=== PATIENT | female | born 1960 | race Two or more races ===

== ENCOUNTER 2020-07-22 13:41 | Outpatient (REF) | payer OTHER, SELFPAY ==
--- NOTE | 2020-07-22 | US_ITS ---
EXAMINATION: US VENOUS ULTRASOUND WITH DOPPLER LOWER EXTREMITY, BILATERAL CLINICAL INFORMATION: Bilateral lower extremity edema. Assess for occult DVT COMPARISON: Right lower extremity venous ultrasound with Doppler 09/21/2016 TECHNIQUE: Ultrasound of the bilateral lower extremity deep veins is performed from the hip to the calf with compression sonography and color and pulse Doppler assessment. Spectral analysis with color-flow imaging is performed. FINDINGS: Right: There is normal venous compression and respiratory variation and augmented flow. The visualized common femoral vein, superficial femoral vein, profunda femoral vein, popliteal vein, and the trifurcation region shows no evidence of deep venous thrombosis. There is no popliteal fossa cyst. Left: There is normal venous compression and respiratory variation and augmented flow. The visualized common femoral vein, superficial femoral vein, profunda femoral vein, popliteal vein, and the trifurcation region shows no evidence of deep venous thrombosis. There is no popliteal fossa cyst. IMPRESSION: No DVT demonstrated in the bilateral lower extremity.
== END 2020-07-22 13:42 | disposition home or self-care (01) ==
LOC: HO.US 13:41
PROVIDERS: Visit Provider Emergency Medicine
DX: R60.0 Localized edema (principal)
CPT/HCPCS: 93970

== ENCOUNTER → 2020-08-06 07:56 | Outpatient (REF) | payer OTHER, SELFPAY ==
--- NOTE | 2020-08-06 | NM_ITS ---
EXAMINATION: RADIONUCLIDE SOLID FOOD GASTRIC EMPTYING 4-HOUR STUDY CLINICAL INFORMATION: Early satiety, nausea. COMPARISON: No previous gastric emptying study is available for comparison. TECHNIQUE: A standard meal consisting of 4 oz of Egg Beaters brand tagged with 1 mCi Tc-99m Sulfur Colloid, 8 oz water and 2 slices of toast with jelly was administered orally to the patient. Images were obtained using a dual head gamma camera in the anterior and posterior projections over of the stomach immediately post ingestion and at hourly intervals up to 3 hours post ingestion. Images were not obtained at 4 hours due to the minimal retention at 3 hours. The anterior and posterior counts at each time interval were averaged using the geometric mean and expressed as percentage of the immediate post ingestion counts. FINDINGS: There is good visualization of activity in the stomach immediately post ingestion. As the study progresses, there is good clearance of activity from the stomach and visualization of progressively increasing small bowel activity. By the end of the study, there is almost no retention noted in the stomach. Retention in the stomach at each time interval was: 1 hour 63% (normal 37%-90%) 2 hours 8% (normal 30%-60%) 3 hours 4% 4 hours (Not Obtained) (normal 0%-10%) NM/NM gastric emptying study IMPRESSION: Normal solid food gastric emptying study.
== END ==
LOC: HO.NUCMED 07:56
PROVIDERS: PCP Nurse Practitioner Family; Visit Provider Internal Medicine Gastroenterology
DX: R68.81 Early satiety (principal)
CPT/HCPCS: 78264; A9541

== ENCOUNTER → 2020-09-07 13:24 | Outpatient (BNVA) | payer OTHER, SELFPAY | PROVIDERS: Visit Provider Internal Medicine Pulmonary Disease | DX: J44.9 Chronic obstructive pulmonary disease, unspecified (principal); R91.8 Other nonspecific abnormal finding of lung field; Z87.891 Personal history of nicotine dependence | CPT/HCPCS: 99212 ==

== ENCOUNTER 2020-09-17 10:32 | Outpatient (REF) | payer OTHER, SELFPAY ==
--- NOTE | 2020-09-17 13:17 | XR_ITS ---
EXAMINATION: XR CERVICAL SPINE CLINICAL INFORMATION: Cervicalgia COMPARISON: 11/22/2015 TECHNIQUE: 3 views of the cervical spine were obtained. FINDINGS: The craniocervical junction is normal. The dens and atlantodental articulation are intact. The cervical vertebra have normal height. No fracture, subluxation or prevertebral soft tissue swelling. The facet joints are chronically fused at C2-C3. Prominent anterior vertebral osteophytes are noted at multiple levels. There is uncovertebral joint hypertrophy and mild degenerative narrowing of disc space at C5-C6. There is facet arthropathy and degenerative disc space narrowing at C7-T1. Otherwise, disc heights are maintained. The visualized lung apices are normal. XR/XR cervical spine 2V IMPRESSION: Chronic, multilevel degenerative arthropathy of the cervical spine. Mild degenerative disc space narrowing observed at C5-C6. The degenerative changes have a stable appearance compared to 11/22/2015. No fracture or malalignment.
== END 2020-09-17 10:33 | disposition home or self-care (01) ==
LOC: HO.XRAY 10:32
PROVIDERS: PCP Nurse Practitioner Family; Visit Provider Student in an Organized Health Care Education/Training Program
DX: M54.2 Cervicalgia (principal); M19.041 Primary osteoarthritis, right hand; M19.042 Primary osteoarthritis, left hand; Z79.899 Other long term (current) drug therapy
CPT/HCPCS: 72040; Q3014

== ENCOUNTER → 2020-09-27 13:27 | Outpatient (BNVA) | payer OTHER, SELFPAY | PROVIDERS: PCP Nurse Practitioner Family; Visit Provider Urology | DX: N39.41 Urge incontinence (principal); N39.3 Stress incontinence (female) (male); N39.490 Overflow incontinence | CPT/HCPCS: 51798; 81002; 99202 ==

== ENCOUNTER 2020-10-04 10:52 | Outpatient (REF) | payer OTHER, SELFPAY ==
--- NOTE | 2020-10-04 10:55 | CT_ITS ---
EXAMINATION: CT CHEST WITHOUT CONTRAST CLINICAL INFORMATION: Abnormal lung findings. COMPARISON: Chest x-ray 11/07/2019 TECHNIQUE: Multidetector volumetric CT imaging of the chest was done. Axial MIP volume rendering provided. Sagittal and coronal reformatted images were obtained. This CT examination was performed using dose optimization techniques as appropriate, variously including the following: *Automated exposure control *Adjustment of mA and/or kV according to patient size (this includes techniques or standardized protocols for targeted exams where dose is matched to indication/reason for exam; i.e. extremities or head) *Use of iterative reconstruction technique DLP: 190 mGy-cm FINDINGS: CERTIFIED PEER SPECIALIST: Unremarkable. LUNGS: The lungs are well expanded and clear of acute pneumonic consolidation. There is plate-like atelectasis in the right middle lobe and medial basal segment right lower lobe. There are several pulmonary nodules visualized. There is a 4 mm and 6 mm nodule adjacent to the left lower lobe superior segment image 31/4 and 3 mm nodule left lung base image 47/4. MEDIASTINUM: The thyroid lobes are symmetrical and normal. The central trachea and the bronchi are widely patent. The heart size and great vessels are normal caliber. Trace coronary artery calcifications are seen. There is no pericardial effusion. PLEURA: There is no pleural effusion. No pleural mass or thickening. AXILLA: Small shotty lymph nodes are seen in the axilla. UPPER ABDOMEN: The visualized liver, spleen, pancreas, and bilateral adrenal glands are unremarkable. There are no gallstones or wall thickening. There is a punctate calcification right and left hepatic lobe. OSSEOUS STRUCTURES: There is no lytic or sclerotic process. There is mild spondylosis dorsal spine. There are posterior spinal electrodes positioned posterior to T7 through T9 vertebrae. There is moderate spondylosis mid and lower dorsal spine. CT/CT chest wo con IMPRESSION: Small pulmonary nodules, as described above. Follow-up as per Fleischner guidelines in 6 months followed by 18-24 months. No acute pneumonic consolidation. Minimal atelectatic changes.
== END 2020-10-04 10:53 | disposition home or self-care (01) ==
LOC: HO.CT 10:52
PROVIDERS: PCP Nurse Practitioner Primary Care; Visit Provider Internal Medicine Pulmonary Disease
DX: R91.8 Other nonspecific abnormal finding of lung field (principal)
CPT/HCPCS: 71250

== ENCOUNTER → 2020-10-11 09:51 | Outpatient (BNVA) | payer OTHER, SELFPAY | PROVIDERS: PCP Internal Medicine Geriatric Medicine; Visit Provider Orthopaedic Surgery | DX: Z76.89 Persons encountering health services in other specified circumstances (principal) ==

== ENCOUNTER 2020-10-11 10:39 | Outpatient (REF) | payer OTHER, SELFPAY ==
[2020-10-11 14:47] LABS: Estimated Average Glucose 137 mg/dL; Hemoglobin A1c % 6.4 %
== END 2020-10-11 10:40 | disposition home or self-care (01) ==
LOC: HO.10HDL 10:39
PROVIDERS: Visit Provider Orthopaedic Surgery
DX: Z01.812 Encounter for preprocedural laboratory examination (principal)
CPT/HCPCS: 36415; 83036

== ENCOUNTER 2020-10-25 11:49 | Outpatient (REF) | payer OTHER, SELFPAY | END 2020-10-25 11:50 | disposition home or self-care (01) | LOC: HO.LAB 11:49 | PROVIDERS: Visit Provider Internal Medicine | DX: Z20.822 Contact with and (suspected) exposure to COVID-19 (principal) | CPT/HCPCS: 36415; C9803; U0003 ==

== ENCOUNTER 2020-11-08 11:55 | Outpatient (REF) | payer OTHER, SELFPAY | END 2020-11-08 11:56 | disposition home or self-care (01) | LOC: HO.LAB 11:55 | PROVIDERS: Visit Provider Internal Medicine | DX: Z20.822 Contact with and (suspected) exposure to COVID-19 (principal) | CPT/HCPCS: 36415; C9803; Q3014; U0003; U0005 ==

== ENCOUNTER → 2020-11-19 11:01 | Outpatient (BNVA) | payer OTHER, SELFPAY | PROVIDERS: PCP Internal Medicine Geriatric Medicine; Visit Provider Nurse Practitioner Family | DX: M19.041 Primary osteoarthritis, right hand (principal); M19.042 Primary osteoarthritis, left hand | CPT/HCPCS: 99212 ==

== ENCOUNTER 2020-11-22 10:47 | Outpatient (REF) | payer OTHER, SELFPAY ==
--- NOTE | ~2020-11-22 | XR_ITS ---
EXAMINATION: XR HAND, LEFT CLINICAL INFORMATION: Osteoarthritis COMPARISON: None TECHNIQUE: PA, lateral, and oblique views of the left hand. FINDINGS: Bone alignment is normal. No acute fracture or dislocation is seen. There is a well-corticated soft tissue ossification adjacent to the ulnar styloid probably representing an old ulnar styloid fracture. There is arthritis at the IP joints, greatest at the IP joints with joint space narrowing and osteophyte formation. Soft tissues are unremarkable. XR/XR hand LT min 3V IMPRESSION: Probable old ulnar styloid fracture. Arthritis at the IP joints.
== END 2020-11-22 10:48 | disposition home or self-care (01) ==
LOC: HO.XRAY 10:47
PROVIDERS: PCP Internal Medicine Geriatric Medicine; Visit Provider Nurse Practitioner Family
DX: M19.042 Primary osteoarthritis, left hand (principal); M19.041 Primary osteoarthritis, right hand
CPT/HCPCS: 73130

== ENCOUNTER → 2020-11-24 14:56 | Outpatient (BNVA) | payer OTHER, SELFPAY | PROVIDERS: PCP Internal Medicine Geriatric Medicine; Visit Provider Nurse Practitioner Family | DX: M19.041 Primary osteoarthritis, right hand (principal); M19.042 Primary osteoarthritis, left hand | CPT/HCPCS: Q3014 ==

== ENCOUNTER → 2020-12-06 09:50 | Outpatient (BNVA) | payer OTHER, SELFPAY | PROVIDERS: Visit Provider Orthopaedic Surgery | DX: M65.352 Trigger finger, left little finger (principal); M19.041 Primary osteoarthritis, right hand; M19.042 Primary osteoarthritis, left hand; R20.0 Anesthesia of skin; R20.2 Paresthesia of skin | CPT/HCPCS: 99202 ==

== ENCOUNTER → 2020-12-15 13:00 | Outpatient (BNVA) | payer OTHER, SELFPAY | PROVIDERS: PCP Nurse Practitioner Primary Care; Visit Provider Physician Assistant | DX: M17.11 Unilateral primary osteoarthritis, right knee (principal) | CPT/HCPCS: 99212 ==

== ENCOUNTER 2020-12-21 06:07 | Inpatient (IN) | payer OTHER, SELFPAY ==
[2020-12-13 12:01] VITALS: BP 134/69; PULSE 60; RESP 16; O2SAT 98; BMI 31.4
--- NOTE | 2020-12-13 12:49 | HO.ANESPROP2 ---
Documented by User: Yolande Montemayor 12/20/20 08:34 HPI - Anesthesia Eval Consult details Narrative: 60yo F for R TKA PCP cleared. Per PCP note, cardiac cleared by telephone call between providers. Seen in cardiology office 11/2020 - stable. Recently had spinal stimulator placed. Low dose suboxone daily. Pt takes 1/3 of 2 mg tab daily. Per pt, prescriber ok with holding suboxone preoperatively. s/p R unicompartmental arthroplasty 07/2016 with spinal PMFSH Active Problems Active Problems: All Active Problems (Updated 12/13/20 @ 12:43 by Corie Lugo) Asthma-COPD overlap syndrome (Acute) Pulmonary nodules (Acute) Neck pain (Acute) Epigastric pain (Acute) Duodenal diverticulum (Acute) Abdominal bloating (Acute) Colon cancer screening (Acute) Early satiety (Acute) Osteoarthritis of hands, bilateral (Acute) Trigger finger, left little finger (Acute) Osteoarthritis of fingers of both hands (Acute) Numbness and tingling in both hands (Acute) Overflow stress urinary incontinence in female (Acute) Urge incontinence (Acute) Primary osteoarthritis of hands, bilateral (Acute) GERD (gastroesophageal reflux disease) (Acute) Past Medical History Medical History Asthma-COPD overlap syndrome Diabetes MENDENHALL (dyspnea on exertion) GERD (gastroesophageal reflux disease) Hx of carpal tunnel syndrome Loose right total knee arthroplasty Overflow stress urinary incontinence in female Presence of dental bridge Primary osteoarthritis of hands, bilateral Pulmonary nodules Sleep apnea Urge incontinence Family History Family History Mother Diabetes Brother Cancer Family history of problems with anesthesia: No Surgical History Surgical History History of arthroplasty of right knee History of carpal tunnel release of both wrists History of endometrial ablation History of esophagogastroduodenoscopy (EGD) History of orthopedic surgery History of pubovaginal sling Hx of section Hx of colonoscopy Previous back surgery History of Problems with Anesthesia: No Social History Social History Household Members: None Are you a primary anesthesiologist and critical care to a significant other at home: No Do you presently have visiting nurse or other home services: Yes ([employer]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) Alcohol intake: former Year quit: 2017 Smoking Status: Former smoker Tobacco Type: Cigarette Years Smoked: 2017 Smoking Quit Date: 2018 Use of substances other than those prescribed or required for medical reasons: No Substance Use Type: Crack/Cocaine and Marijuana Substance Use Type Other:: none since 2018 Have you been hit, kicked, punched, or otherwise hurt by someone within the past year? If so, by whom?: No Spiritual Healthcare Practices: none [facility] Practices: none Cultural Healthcare Practices: none Advance Directives: No Advance Directives Information Provided: No Advance Directives on File: No Recently lost weight without trying: No Narrative Narrative: No recent illness. Activity limited to pain. Chronic MENDENHALL at baseline. Meds Allergies Allergy/AdvReac Type Severity Reaction Status Date / Time ibuprofen [IBUPROFEN] Allergy Mild STOMACH Verified 12/15/20 13:11 PAIN Home Medications Medication Instructions Recorded Confirmed Last Taken Type acetaminophen 500 mg tablet 1,000 mg PO Q6H PRN 09/07/20 12/13/20 Unknown History albuterol sulfate 90 mcg/actuation 2 puff PO Q4H PRN 09/07/20 12/13/20 Unknown History aerosol inhaler atenolol 50 mg tablet 50 mg PO BEDTIME 09/07/20 12/13/20 12/21/20 History blood sugar diagnostic #10 ea 09/07/20 11/08/20 Unknown History buprenorphine 2 mg-naloxone 0.5 mg 1 mg SUBLINGUAL DAILY 09/07/20 12/13/20 Unknown History sublingual film cetirizine 10 mg tablet 10 mg PO DAILY 09/07/20 12/13/20 Unknown History cholecalciferol (vitamin D3) 50 50 mcg PO DAILY 09/07/20 12/13/20 Unknown History mcg (2,000 unit) tablet duloxetine 60 mg capsule,delayed 60 mg PO BID 09/07/20 12/13/20 Unknown History release econazole 1 % topical cream 1 appl TOPICAL BEDTIME 09/07/20 11/19/20 Unknown History ferrous gluconate 240 mg (27 mg 240 mg PO Q OTHER DAY 09/07/20 12/13/20 Unknown History iron) tablet fluticasone propionate 50 1 spray INTRANASAL BID 09/07/20 12/13/20 Unknown History mcg/actuation nasal spray,suspension gabapentin 800 mg tablet 800 mg PO TID 09/07/20 12/13/20 Unknown History lancets 33 gauge #100 ea 09/07/20 11/08/20 Unknown History losartan 100 mg tablet 100 mg PO DAILY 09/07/20 12/13/20 Unknown History meloxicam 15 mg tablet 15 mg PO DAILY 09/07/20 12/13/20 Unknown History metformin 500 mg tablet 500 mg PO DAILY 09/07/20 12/13/20 Unknown History simvastatin 20 mg tablet 20 mg PO BEDTIME 09/07/20 12/13/20 Unknown History trazodone 50 mg tablet 50 mg PO BEDTIME 09/07/20 12/13/20 Unknown History zolpidem 10 mg tablet 10 mg PO BEDTIME PRN 09/07/20 12/13/20 Unknown History amlodipine 5 mg tablet 5 mg PO DAILY 09/27/20 12/13/20 12/21/20 History fluticasone propion-salmeterol 2 puff PO BID 12/21/20 12/21/20 Unknown History [Advair HFA] Exam Exam Date and Time: December 13, 2020 1249 Height,Weight and Vital Signs: Height 5 ft 2 in Weight 78.018 kg Last Vital Signs Pulse 60 12/13/20 12:01 Resp 16 12/13/20 12:01 BP 134/69 12/13/20 12:01 Pulse Ox 98 12/13/20 12:01 Narrative Narrative: EKG 12/01/20 NSR@63 Echo 12/2019 Nml LV sys and diastolic function Mild AR Nml RV pressure No pericardial effusion Echo 10/2020 Nml LV function EF 65-70% Indeterminate diastolic function Stress 2018 (per pcp note) WNL Airway Mallampati Class: I TM Dist: >3cm Neck ROM: Full Partial: Upper Heart: RRR Lungs: Faint expiratory wheezes throughtout. Pt states she has not been home to use inhaler today. Assessment and Plan Assessment Anesthesia Assessment: Anesthesia Plan Discussed (Spinal vs General Anesthesia (spinal stimulator in situ)) and PAT Visit Final Anesthetic Review Patient Risk: Intermediate Documented by User: Paolo Villa MD 12/21/20 09:03 [facility] Past Medical History Medical History Asthma-COPD overlap syndrome Diabetes MENDENHALL (dyspnea on exertion) GERD (gastroesophageal reflux disease) Hx of carpal tunnel syndrome Loose right total knee arthroplasty Overflow stress urinary incontinence in female Presence of dental bridge Primary osteoarthritis of hands, bilateral Pulmonary nodules Sleep apnea Urge incontinence Family History Family History Mother Diabetes Brother Cancer Surgical History Surgical History History of arthroplasty of right knee History of carpal tunnel release of both wrists History of endometrial ablation History of esophagogastroduodenoscopy (EGD) History of orthopedic surgery History of pubovaginal sling Hx of section Hx of colonoscopy Previous back surgery Social History Social History Household Members: None Are you a primary anesthesiologist and critical care to a significant other at home: No Do you presently have visiting nurse or other home services: Yes ([employer]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) Alcohol intake: former Year quit: 2017 Smoking Status: Former smoker Tobacco Type: Cigarette Years Smoked: 2018 Smoking Quit Date: 2018 Use of substances other than those prescribed or required for medical reasons: No Substance Use Type: Crack/Cocaine and Marijuana Substance Use Type Other:: none since 2019 Have you been hit, kicked, punched, or otherwise hurt by someone within the past year? If so, by whom?: No Spiritual Healthcare Practices: none [facility] Practices: none Cultural Healthcare Practices: none Advance Directives: No Advance Directives Information Provided: No Advance Directives on File: No Recently lost weight without trying: No Meds Allergies Allergy/AdvReac Type Severity Reaction Status Date / Time ibuprofen [IBUPROFEN] Allergy Mild STOMACH Verified 12/15/20 13:11 PAIN Home Medications Medication Instructions Recorded Confirmed Last Taken Type acetaminophen 500 mg tablet 1,000 mg PO Q6H PRN 09/07/20 12/13/20 Unknown History albuterol sulfate 90 mcg/actuation 2 puff PO Q4H PRN 09/07/20 12/13/20 Unknown History aerosol inhaler atenolol 50 mg tablet 50 mg PO BEDTIME 09/07/20 12/13/20 12/21/20 History blood sugar diagnostic #10 ea 09/07/20 11/08/20 Unknown History buprenorphine 2 mg-naloxone 0.5 mg 1 mg SUBLINGUAL DAILY 09/07/20 12/13/20 Unknown History sublingual film cetirizine 10 mg tablet 10 mg PO DAILY 09/07/20 12/13/20 Unknown History cholecalciferol (vitamin D3) 50 50 mcg PO DAILY 09/07/20 12/13/20 Unknown History mcg (2,000 unit) tablet duloxetine 60 mg capsule,delayed 60 mg PO BID 09/07/20 12/13/20 Unknown History release econazole 1 % topical cream 1 appl TOPICAL BEDTIME 09/07/20 11/19/20 Unknown History ferrous gluconate 240 mg (27 mg 240 mg PO Q OTHER DAY 09/07/20 12/13/20 Unknown History iron) tablet fluticasone propionate 50 1 spray INTRANASAL BID 09/07/20 12/13/20 Unknown History mcg/actuation nasal spray,suspension gabapentin 800 mg tablet 800 mg PO TID 09/07/20 12/13/20 Unknown History lancets 33 gauge #100 ea 09/07/20 11/08/20 Unknown History losartan 100 mg tablet 100 mg PO DAILY 09/07/20 12/13/20 Unknown History meloxicam 15 mg tablet 15 mg PO DAILY 09/07/20 12/13/20 Unknown History metformin 500 mg tablet 500 mg PO DAILY 09/07/20 12/13/20 Unknown History simvastatin 20 mg tablet 20 mg PO BEDTIME 09/07/20 12/13/20 Unknown History trazodone 50 mg tablet 50 mg PO BEDTIME 09/07/20 12/13/20 Unknown History zolpidem 10 mg tablet 10 mg PO BEDTIME PRN 09/07/20 12/13/20 Unknown History amlodipine 5 mg tablet 5 mg PO DAILY 09/27/20 12/13/20 12/21/20 History fluticasone propion-salmeterol 2 puff PO BID 12/21/20 12/21/20 Unknown History [Advair HFA] Exam Airway Mallampati Class: III TM Dist: >3cm Neck ROM: Full Loose/Missing/Broken Teeth: Yes Heart: RRR Lungs: NL Assessment and Plan Assessment Anesthesia Assessment: Anesthesia Plan Discussed, Smoking Cess. Discussed and Chart Reviewed Final Anesthetic Review NPO: Yes ASA Class: III Final Preanesthetic Review: No Changes in Pt Med Stat, Meds/Allgs Chart Reviewed, Consent Obtained/Reviewed and Anes Risks/Benef Reviewed Patient Risk: Intermediate Procedure Risk: Intermediate Anesthetic Plan Anesthetic Plan: MAC:, Spinal and Regional Block Disposition: Standard PACU
[2020-12-13 14:14] LABS: MANUAL DIFF FLAG NO
[2020-12-13 14:19] LABS: Basophils Percent Auto 0.3 % (0-2); Eosinophils Absolute Auto 0.3 X10*3/uL (0.0-0.4); Eosinophils Percent Auto 3.7 % (0-4); Hematocrit 34.7 % (37-47); Hemoglobin 11.4 g/dl (12.0-16.0); Imm Gran Abs Auto 0.03 X10*3/uL (0.00-0.03); Imm Gran Pct Auto 0.3 % (0.0-0.4); Lymphocytes Absolute Auto 2.8 X10*3/uL (1.2-4.9); Lymphocytes Percent Auto 32.1 % (20-40); Mean Corpuscular HGB Conc 32.9 g/dl (31.0-35.0); Mean Corpuscular Hemoglobin 30.2 pg (27.0-33.0); Mean Platelet Volume 10.6 fL (9.4-12.3); Monocytes Absolute Auto 0.7 X10*3/uL (0.1-1.2); Monocytes Percent Auto 8.2 % (2-11); Neutrophils Absolute Auto 4.9 X10*3/uL (2.0-8.3); Neutrophils Percent Auto 55.4 % (45-73); Platelet Count 307 X10*3/uL (160-400); Red Blood Count 3.77 X10*6/uL (4.20-5.50); White Blood Count 8.9 X10*3/uL (4.8-10.8)
[2020-12-13 14:54] LABS: Anion Gap 12 (12-20); Blood Urea Nitrogen 10 mg/dL (9-16); Carbon Dioxide 31 mmol/L (22-29); Chloride 102 mmol/L (96-108); Creatinine Clr Calc Pharmacy 89.3; Estimated Glomerular Filt Rate > 60; Potassium 4.3 mmol/L (3.3-5.1); Sodium 141 mmol/L (135-145)
[2020-12-13 15:11] LABS: MRSA Nasal PCR NEGATIVE (Negative); SA Nasal PCR NEGATIVE (Negative)
[2020-12-21] VITALS (21 sets, daily range): BP systolic 95–151; BP diastolic 45–73; PULSE 51–74; RESP 8–20; TEMP 36.2–37.5; O2SAT 96–100
--- NOTE | ~2020-12-21 | XR_ITS ---
EXAMINATION: XR KNEE, RIGHT CLINICAL INFORMATION: Status post right total knee arthroplasty. COMPARISON: Standing AP knees 04/19/2018, radiographs right knee 05/24/2020 TECHNIQUE: AP and crosstable lateral views of the right knee are obtained portably. FINDINGS: There is total knee arthroplasty with hinged prosthesis and overlying skin tye. There is expected subcutaneous emphysema, effusion, and mild induration Hoffa's fat pad. There is no fracture or dislocation. Spurring at the quadriceps insertion patella again seen. XR/XR knee RT 2V IMPRESSION: Status post right knee arthroplasty. No fracture or dislocation.
[2020-12-21] MEDS: Gabapentin 600 MG TABLET PO (06:48)
[2020-12-21 06:55] LABS: Glucose, Whole Blood 130 mg/dL (60-115)
[2020-12-21 07:11] LABS: COVID-19 Test Negative (Negative); IDNOW Serial# 9DD0AD1C
[2020-12-21] MEDS: Lactated Ringers 1,000 ML 100 ML IVCONT (07:12)
--- NOTE | 2020-12-21 07:37 | MHC.SHP ---
Pre-Procedural Eval Section A The patient is an INPATIENT: No Changes since office visit: No Cold of Flu in the past 2 weeks, No New Medical Problems, No Changes in Medication and No Patient answered all questions The History & Physical has been completed within 30 days and I have reviewed it.: Yes Section B Chief Complaint: R TKA REVISION Allergies: Allergies Allergy/AdvReac Type Severity Reaction Status Date / Time ibuprofen [IBUPROFEN] Allergy Mild STOMACH Verified 12/15/20 13:11 PAIN Plan I have reviewed the history and physical and performed a pertinent physical examination on my patient. No changes have occurred unless specified.
--- NOTE | 2020-12-21 10:33 | P.BOP_ITS ---
Brief Operative Note Date of Service: 12/21/20 Pre-op diagnosis: right knee arthritis Post-op diagnosis: same Procedure: revision right knee arthroplasty Implants: keira triathalon 11/10/TS/33s Surgeon: Lyndon Covington MD Anesthesia: regional and spinal Engraver Picture: Maxim Duenas Estimated blood loss (mL): 150 IV fluids (mL): 1,000 Pathology: none sent Condition: stable Disposition: PACU
--- NOTE | 2020-12-21 10:34 | W.PM.OPN ---
Operative Note Operative Note Date of Service: 12/21/20 Narrative: Date of Service: 12/21/20 Pre-op diagnosis: right knee arthritis Post-op diagnosis: same Procedure: revision right knee arthroplasty Implants: keira triathalon //13TS/33s Surgeon: Lyndon Covington MD Anesthesia: regional and spinal Body Shop Supervisor: Maxim Duenas Estimated blood loss (mL): 150 IV fluids (mL): 1,000 Pathology: none sent Condition: stable Disposition: PACU Indications: This is a 60 yo F 6 years s/p right medial compartment arthroplasty with lateral and anterior knee pain. She was consented to undergo revision TKA. Procedure in detail: Patient was brought to the operating room and prepped and draped in standard sterile fashion. A time-out was called to identify proper site proper procedure proper surgeon IV antibiotics were administered. 1 g of IV tranexemic acid was also administered. I began by making a extended incision to encompass the prior medial arthrotomy incision down to the retinaculum and then performed a medial parapatellar arthrotomy. The patella was translated laterally and the knee was flexed up. I performed a small medial peel and resected the infrapatellar fat pad. The medial UKA implants were is expected position and there was no evidence of loosening or infection. The insert was removed and then the femur and tibia were removed with a flexible osteotom. There was minimal bone loss in the femoral side and 2-3 mm on the tibial side. All excess cement was removed and Mando's line was then used to drill my intramedullary femoral guide and my distal femur cut was made in 5 degrees of valgus. I then used the epicondylar axis to place my cutting block and then made my anterior posterior and chamfer cuts protecting the soft tissues at all times. There was no need for augmentation. Once I was happy with my cut I turned my attention to the tibia. In line with the tibial crest and with a 3 degree posterior slope I made my tibial cut protecting by taking a skim cut off the low point of the medial plateau while the posterior soft tissues at all times. An extension block was used to confirm appropriate amount of bony resection. The knee was stable and fully extended with a 13 mm extension blcok. I then sized the tibia and once I was happy that there was good tibial coverage I placed my trial and with the trial femur in place took the knee through range of motion. I was happy with the extension and flexion as well as the stability at 0, 30 and 90 degrees. I then turned my attention to the patella where I removed 1 cm from the undersurface of the patella and then trialed a patellar button of appropriate dimensions. Again the knee was taken through range of motion I was happy with the tracking. I then prepared the tibial canal. Femoral bone plug was then placed and the knee was irrigated copiously. I then cemented in the patella, tibia and femur in standard fashion while applying axial compression. Once the cement was dry I removed all excess cement and I trialed different inserts until I found the appropriate size. I then placed the final insert and performed a 3 minutes iodine soak with local TXA. A layered closure was performed with tye on the skin and a Proveena vacuum assisted dressing was applied. The knee was then closed with a running Quill suture, a 3 0 Vicryl and tye on the skin. Patient was then placed in sterile dressing and brought to recovery room in stable condition there were no known complications.
[2020-12-21] MEDS: HYDROmorphone HCl 0.5 MG/0.5 ML SYRINGE IVPUSH ×4 (11:42→13:29)
[2020-12-21] MEDS: ceFAZolin Sodium/Dextrose,Iso 2 GM/50 ML PIGGYBACK IV (16:22)
[2020-12-21] MEDS: oxyCODONE HCl Immed Release 5 MG TABLET 10 MG PO ×2 (16:22→23:30)
[2020-12-21] MEDS: Dextrose 5 % and 0.9 % NaCl 1,000 ML 80 ML IVCONT (17:32)
[2020-12-21] MEDS: oxyCODONE HCl ER 10 MG TAB.ER.12H PO (19:35)
--- NOTE | 2020-12-21 19:55 | P.CONIM_ITS ---
History of Present Illness Data of Consult Service Date: 12/21/20 Primary Care Provider: Gildardo Yin MD [facility] Reason for consult: Medical management 60-year-old female past asthma, prediabetes, osteoarthritis, presented to the hospital with a chief complaint of knee pain; admitted to the orthopedic service and status post knee arthroplasty. Medicine team was consulted by the orthopedics team for medical management. Patient denied any chest pain palpitations lightheadedness or dizziness. Complains of pain in the knee. Denies any fever chills cough. Review of all other systems is negative except mentioned above PMFSH Medical History Asthma-COPD overlap syndrome Diabetes [place] (dyspnea on exertion) GERD (gastroesophageal reflux disease) Hx of carpal tunnel syndrome Loose right total knee arthroplasty Overflow stress urinary incontinence in female Presence of dental bridge Primary osteoarthritis of hands, bilateral Pulmonary nodules Sleep apnea Urge incontinence Family History Mother Diabetes Brother Cancer Surgical History History of arthroplasty of right knee History of carpal tunnel release of both wrists History of endometrial ablation History of esophagogastroduodenoscopy (EGD) History of orthopedic surgery History of pubovaginal sling Hx of section Hx of colonoscopy Previous back surgery Social History Household Members: None Are you a primary care management coordinator to a significant other at home: No Do you presently have visiting nurse or other home services: Yes ([employer]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) Alcohol intake: former Year quit: 2017 Smoking Status: Former smoker Tobacco Type: Cigarette Years Smoked: 2018 Smoking Quit Date: 2018 Use of substances other than those prescribed or required for medical reasons: No Substance Use Type: Crack/Cocaine and Marijuana Substance Use Type Other:: none since 2019 Have you been hit, kicked, punched, or otherwise hurt by someone within the past year? If so, by whom?: No Spiritual Healthcare Practices: none Sikhism Healthcare Practices: none Cultural Healthcare Practices: none Advance Directives: No Advance Directives Information Provided: No Advance Directives on File: No Recently lost weight without trying: No Meds Allergies Allergy/AdvReac Type Severity Reaction Status Date / Time ibuprofen [IBUPROFEN] Allergy Mild STOMACH Verified 12/15/20 13:11 PAIN Active Medications: Current Medications Generic Name Dose Route Start Last Admin Trade Name Freq PRN Reason Stop Dose Admin Acetaminophen 650 mg 12/21/20 15:50 Acetaminophen 325 Mg Tablet PO Q6H PRN Pain, Mild (Pain Scale 1-3) Albuterol/Ipratropium 3 ml 12/21/20 19:12 Albuterol/Iprat 2.5/0.5mg 3 Ml Ampul.Neb INHALE Q4H PRN Shortness of Breath/Wheezing Amlodipine Besylate 5 mg 12/22/20 09:00 Amlodipine Besylate 5 Mg Tablet PO DAILY [facility] Protocol Atenolol 50 mg 12/21/20 21:00 Atenolol 50 Mg Tablet PO BEDTIME [facility] Protocol Buprenorphine/Naloxone 0.5 film 12/22/20 09:00 Buprenorphine/Naloxone 2/0.5mg Film SUBLINGUAL DAILY [facility] Celecoxib 200 mg 12/21/20 21:00 Celecoxib 200 Mg Capsule PO BID [facility] Docusate Sodium 100 mg 12/21/20 21:00 Docusate Sodium 100 Mg Capsule PO BID [facility] Duloxetine HCl 60 mg 12/21/20 21:00 Duloxetine Hcl 60 Mg Capsule.Dr PO BID [facility] Fluticasone Propionate 1 spray 12/21/20 21:00 Fluticasone Propionate Nasal 16 Gm [place] NOSTRIL-B BID [facility] Gabapentin 800 mg 12/21/20 21:00 Gabapentin 400 Mg Capsule PO TID [facility] Hydromorphone HCl 0.5 mg 12/21/20 15:50 Hydromorphone Hcl 0.5 Mg/0.5 Ml Syringe IVPUSH Q3H PRN Pain, Severe (Pain Scale 7-10) Dextrose/Sodium Chloride 1,000 mls @ 80 mls/hr 12/21/20 15:50 12/21/20 17:32 D5ns IVCONT 80 mls/hr .[id number] [facility] Administration Loratadine 10 mg 12/22/20 09:00 Loratadine 10 Mg Tablet PO DAILY [facility] Losartan Potassium 100 mg 12/22/20 09:00 Losartan Potassium 50 Mg Tablet PO DAILY [facility] Protocol Naloxone HCl 0.2 mg 12/21/20 15:50 Naloxone Hcl 0.4 Mg/Ml Vial IVPUSH Q2M PRN Excessive sedation or RR < 8 Omeprazole 40 mg 12/22/20 06:30 Omeprazole 40 Mg Capsule. PO BID@0638,9620 [facility] Ondansetron HCl 4 mg 12/21/20 15:50 Ondansetron Hcl 4 Mg/2 Ml Vial IVPUSH Q8H PRN Nausea and Vomiting Oxycodone HCl 10 mg 12/21/20 15:50 12/21/20 16:22 Oxycodone Hcl Immed Release 5 Mg Tablet PO 10 mg Q4H PRN Administration Pain, Moderate (Pain Scale 4-6 Oxycodone HCl 10 mg 12/21/20 21:00 12/21/20 19:35 Oxycodone Hcl Er 10 Mg Tab.Er.12h PO 10 mg BID [facility] Administration Sodium Chloride 3 ml 12/21/20 16:00 12/21/20 17:00 0.9 % Sodium Chloride Flush 3 Ml Syringe IVFLUSH Not Given QSHIFT [facility] Trazodone HCl 50 mg 12/21/20 21:00 Trazodone Hcl 50 Mg Tablet PO BEDTIME [facility] Vitamin D 50 mcg 12/22/20 09:00 Cholecalciferol (Vitamin D3) 25 Mcg Tablet PO DAILY [facility] Zolpidem Tartrate 10 mg 12/21/20 19:11 Zolpidem Tartrate 5 Mg Tablet PO BEDTIME PRN Insomnia Home Medications Medication Instructions Recorded Confirmed Last Taken Type acetaminophen 500 mg tablet 1,000 mg PO Q6H PRN 09/07/20 12/13/20 Unknown History albuterol sulfate 90 mcg/actuation 2 puff PO Q4H PRN 09/07/20 12/13/20 Unknown History aerosol inhaler atenolol 50 mg tablet 50 mg PO BEDTIME 09/07/20 12/13/20 12/21/20 History blood sugar diagnostic #10 ea 09/07/20 11/08/20 Unknown History buprenorphine 2 mg-naloxone 0.5 mg 0.5 film SUBLINGUAL DAILY 09/07/20 12/21/20 Unknown History sublingual film cetirizine 10 mg tablet 10 mg PO DAILY 09/07/20 12/13/20 Unknown History cholecalciferol (vitamin D3) 50 50 mcg PO DAILY 09/07/20 12/13/20 Unknown History mcg (2,000 unit) tablet duloxetine 60 mg capsule,delayed 60 mg PO BID 09/07/20 12/13/20 Unknown History release econazole 1 % topical cream 1 appl TOPICAL BEDTIME 09/07/20 11/19/20 Unknown History ferrous gluconate 240 mg (27 mg 240 mg PO Q OTHER DAY 09/07/20 12/13/20 Unknown History iron) tablet fluticasone propionate 50 1 spray INTRANASAL BID 09/07/20 12/13/20 Unknown History mcg/actuation nasal spray,suspension gabapentin 800 mg tablet 800 mg PO TID 09/07/20 12/13/20 Unknown History lancets 33 gauge #100 ea 09/07/20 11/08/20 Unknown History losartan 100 mg tablet 100 mg PO DAILY 09/07/20 12/13/20 Unknown History meloxicam 15 mg tablet 15 mg PO DAILY 09/07/20 12/13/20 Unknown History metformin 500 mg tablet 500 mg PO DAILY 09/07/20 12/13/20 Unknown History simvastatin 20 mg tablet 20 mg PO BEDTIME 09/07/20 12/13/20 Unknown History trazodone 50 mg tablet 50 mg PO BEDTIME 09/07/20 12/13/20 Unknown History zolpidem 10 mg tablet 10 mg PO BEDTIME PRN 09/07/20 12/13/20 Unknown History amlodipine 5 mg tablet 5 mg PO DAILY 09/27/20 12/13/20 12/21/20 History fluticasone propion-salmeterol 2 puff PO BID 12/21/20 12/21/20 Unknown History [Advair HFA] Physical Exam Vital Signs and Narrative: Vital Signs: Last Vital Signs Temp 97.4 F 12/21/20 19:36 Pulse 69 12/21/20 19:36 Resp 19 12/21/20 19:36 BP 132/67 12/21/20 19:36 Pulse Ox 98 12/21/20 19:36 Body Mass Index 31.4 Gen: Appears be in no acute distress HEENT: NCAT, Moist mucosa. Pulmonary: Vesicular breath sounds, fair air entry CVS: Normal S1-S2 Abdomen: BS+, Soft, Nontender Extremities: Warm well perfused; right knee has a VAC in place Neuro: Alert and awake. Results Labs CBC and Chem 7: 12/13/20 13:29 12/13/20 13:29 Labs: Laboratory Results - last 24 hr 12/21/20 12/21/20 06:15 06:51 POC Glucose 130 H COVID-19 ([facility]IN) Negative COVID-19 Clin Com See Note Imaging Radiologist's Impressions: Impressions Knee X-Ray 12/21/20 13:15 IMPRESSION: Status post right knee arthroplasty. No fracture or dislocation. Assessment and Plan (1) Osteoarthritis of right knee: Status: Acute 60-year-old female with a past medical history of osteoarthritis, prediabetes, GERD admitted to the orthopedic service for right knee Arthroplasty. Status post right knee arthroplasty: Patient complains of pain. Pain managemen t/DVT prophylaxis and further postsurgical care as per the orthopedic team. Diabetes: Insulin sliding scale. History of anxiety/depression: Continue home medications. Patient can be resumed on home medications at the time of discharge. Thank you for the consult; please call for any questions.
[2020-12-21] MEDS: DULoxetine HCl 60 MG CAPSULE.DR PO (20:42)
[2020-12-21] MEDS: Gabapentin 400 MG CAPSULE 800 MG PO (20:43)
[2020-12-21] MEDS: atenoloL 50 MG TABLET PO (20:43)
[2020-12-21] MEDS: traZODone HCL 50 MG TABLET PO (20:43)
[2020-12-21] MEDS: Fluticasone Propionate Nasal 16 GM SPRAY 1 SPRAY NOSTRIL-B (20:49)
[2020-12-21] MEDS: Docusate Sodium 100 MG CAPSULE PO (20:49)
[2020-12-21] MEDS: Celecoxib 200 MG CAPSULE PO (20:49)
[2020-12-22] VITALS (9 sets, daily range): BP systolic 100–145; BP diastolic 48–62; PULSE 63–83; RESP 17–19; TEMP 36–37.6; O2SAT 96–99; BMI 31.4
[2020-12-22] MEDS: oxyCODONE HCl Immed Release 5 MG TABLET 10 MG PO ×4 (03:36→22:38)
[2020-12-22] MEDS: Dextrose 5 % and 0.9 % NaCl 1,000 ML 80 ML IVCONT (04:55)
[2020-12-22] MEDS: Omeprazole 40 MG CAPSULE.DR PO ×2 (05:41→16:15)
[2020-12-22 06:49] LABS: MANUAL DIFF FLAG NO
[2020-12-22 06:55] LABS: Basophils Percent Auto 0.1 % (0-2); Eosinophils Absolute Auto 0.1 X10*3/uL (0.0-0.4); Eosinophils Percent Auto 0.9 % (0-4); Hematocrit 26.7 % (37-47); Hemoglobin 8.8 g/dl (12.0-16.0); Imm Gran Abs Auto 0.03 X10*3/uL (0.00-0.03); Imm Gran Pct Auto 0.4 % (0.0-0.4); Lymphocytes Absolute Auto 1.7 X10*3/uL (1.2-4.9); Lymphocytes Percent Auto 19.6 % (20-40); Mean Corpuscular Hemoglobin 30.8 pg (27.0-33.0); Mean Corpuscular Volume 93.4 fL (80-98); Mean Platelet Volume 10.6 fL (9.4-12.3); Monocytes Absolute Auto 0.9 X10*3/uL (0.1-1.2); Monocytes Percent Auto 10.5 % (2-11); Neutrophils Absolute Auto 5.9 X10*3/uL (2.0-8.3); Neutrophils Percent Auto 68.5 % (45-73); Platelet Count 220 X10*3/uL (160-400); Red Blood Count 2.86 X10*6/uL (4.20-5.50); Red Cell Distribution Width 12.1 % (11.0-16.0); White Blood Count 8.6 X10*3/uL (4.8-10.8)
[2020-12-22 07:21] LABS: Anion Gap 10 (12-20); Blood Urea Nitrogen 12 mg/dL (9-16); Calcium 8.3 mg/dL (8.4-10.2); Carbon Dioxide 28 mmol/L (22-29); Chloride 103 mmol/L (96-108); Creatinine Clr Calc Pharmacy 89.3; Estimated Glomerular Filt Rate > 60; Glucose Fasting 161 mg/dL (60-99); Potassium 4.3 mmol/L (3.3-5.1); Sodium 137 mmol/L (135-145)
[2020-12-22] MEDS: Gabapentin 400 MG CAPSULE 800 MG PO ×3 (07:59→20:35)
[2020-12-22] MEDS: Cholecalciferol (Vitamin D3) 25 MCG TABLET 50 MCG PO (07:59)
[2020-12-22] MEDS: DULoxetine HCl 60 MG CAPSULE.DR PO ×2 (07:59→20:42)
[2020-12-22] MEDS: Docusate Sodium 100 MG CAPSULE PO ×2 (07:59→20:42)
[2020-12-22] MEDS: Losartan Potassium 50 MG TABLET 100 MG PO (08:00)
[2020-12-22] MEDS: Loratadine 10 MG TABLET PO (08:00)
--- NOTE | 2020-12-22 08:02 | PM.PNORT ---
Subjective Subjective Date of Service: 12/22/20 Interval history: POD1 s/p left revision TKA. Patient is resting comfortably in bed. No overnight events. Physical Exam Vital Signs: Vital Signs: Last Vital Signs Temp 98.2 F 12/22/20 07:51 Pulse 64 12/22/20 07:51 Resp 17 12/22/20 07:51 BP 106/52 L 12/22/20 07:51 Pulse Ox 98 12/22/20 07:51 Body Mass Index 31.4 Const: General: cooperative, healthy appearing and no acute distress Resp: Effort & Inspection: normal respiratory effort and able to speak in complete sentences Cardio: Rate: regular rate Peripheral pulses: Peripheral pulses 2+ throughout GI: Palpation (GI): Soft to palpation Skin: Lesions: no lesions Rashes: no rashes Extrem: Other: Right knee no ecchymosis, redness, or drainage. Shanita intact. Patient is able to dorsi and plantar flex. Sensation intact. Progress Note: A&P Assessment and plan (1) Status post revision of total knee replacement: Status: Acute Assessment and Plan: Continue pain mgmnt Begin ASA for dvt ppx begin PT for right knee revsion TKA Dispo planning-Pending PT eval, pain mgmnt Fall Risk Details Current Medications: Current Medications Generic Name Dose Route Start Last Admin Trade Name Freq PRN Reason Stop Dose Admin Acetaminophen 650 mg 12/21/20 15:50 Acetaminophen 325 Mg Tablet PO Q6H PRN Pain, Mild (Pain Scale 1-3) Albuterol/Ipratropium 3 ml 12/21/20 19:12 Albuterol/Iprat 2.5/0.5mg 3 Ml Ampul.Neb INHALE Q4H PRN Shortness of Breath/Wheezing Atenolol 50 mg 12/21/20 21:00 12/21/20 20:43 Atenolol 50 Mg Tablet PO 50 mg BEDTIME [facility] Administration Protocol Buprenorphine/Naloxone 0.5 film 12/22/20 09:00 Buprenorphine/Naloxone 2/0.5mg Film SUBLINGUAL DAILY [facility] Celecoxib 200 mg 12/21/20 21:00 12/21/20 20:49 Celecoxib 200 Mg Capsule PO 200 mg BID [facility] Administration Docusate Sodium 100 mg 12/21/20 21:00 12/21/20 20:49 Docusate Sodium 100 Mg Capsule PO 100 mg BID [facility] Administration Duloxetine HCl 60 mg 12/21/20 21:00 12/21/20 20:42 Duloxetine Hcl 60 Mg Capsule. PO 60 mg BID [facility] Administration Fluticasone Propionate 1 spray 12/21/20 21:00 12/21/20 20:49 Fluticasone Propionate Nasal 16 Gm [place] NOSTRIL-B 1 spray BID [facility] Administration Gabapentin 800 mg 12/21/20 21:00 12/21/20 20:43 Gabapentin 400 Mg Capsule PO 800 mg TID [facility] Administration Hydromorphone HCl 0.5 mg 12/21/20 15:50 Hydromorphone Hcl 0.5 Mg/0.5 Ml Syringe IVPUSH Q3H PRN Pain, Severe (Pain Scale 7-10) Loratadine 10 mg 12/22/20 09:00 Loratadine 10 Mg Tablet PO DAILY [facility] Losartan Potassium 100 mg 12/22/20 09:00 Losartan Potassium 50 Mg Tablet PO DAILY [facility] Protocol Naloxone HCl 0.2 mg 12/21/20 15:50 Naloxone Hcl 0.4 Mg/Ml Vial IVPUSH Q2M PRN Excessive sedation or RR < 8 Omeprazole 40 mg 12/22/20 06:30 12/22/20 05:41 Omeprazole 40 Mg Capsule. PO 40 mg BID@0630,1630 [facility] Administration Ondansetron HCl 4 mg 12/21/20 15:50 Ondansetron Hcl 4 Mg/2 Ml Vial IVPUSH Q8H PRN Nausea and Vomiting Oxycodone HCl 10 mg 12/21/20 15:50 12/22/20 03:36 Oxycodone Hcl Immed Release 5 Mg Tablet PO 10 mg Q4H PRN Administration Pain, Moderate (Pain Scale 4-6 Oxycodone HCl 10 mg 12/21/20 21:00 12/21/20 19:35 Oxycodone Hcl Er 10 Mg Tab.Er.12h PO 10 mg BID [facility] Administration Sodium Chloride 3 ml 12/21/20 16:00 12/22/20 03:38 0.9 % Sodium Chloride Flush 3 Ml Syringe IVFLUSH Not Given QSHIFT [facility] Trazodone HCl 50 mg 12/21/20 21:00 12/21/20 20:43 Trazodone Hcl 50 Mg Tablet PO 50 mg BEDTIME [facility] Administration Vitamin D 50 mcg 12/22/20 09:00 Cholecalciferol (Vitamin D3) 25 Mcg Tablet PO DAILY [facility] Zolpidem Tartrate 10 mg 12/21/20 19:11 Zolpidem Tartrate 5 Mg Tablet PO BEDTIME PRN Insomnia Time Spent With Patient Time: Total time spent is greater than 50% in coordination of care (as documented) at patient's floor/unit and/or counseling patient: Time with patient: less than 15 minutes
[2020-12-22] MEDS: Celecoxib 200 MG CAPSULE PO ×2 (08:04→20:40)
[2020-12-22] MEDS: Acetaminophen 325 MG TABLET 650 MG PO (08:09)
[2020-12-22] MEDS: Aspirin 325 MG TABLET PO ×2 (09:04→20:39)
[2020-12-22] MEDS: oxyCODONE HCl ER 10 MG TAB.ER.12H PO ×2 (09:05→20:42)
[2020-12-22] MEDS: 0.9 % Sodium Chloride Flush 3 ML SYRINGE IVFLUSH ×2 (09:06→16:15)
[2020-12-22] MEDS: HYDROmorphone HCl 0.5 MG/0.5 ML SYRINGE IVPUSH ×3 (12:09→20:26)
--- NOTE | 2020-12-22 12:13 | HO.POSTANES ---
Post Anesthesia Evaluation Post Anesthesia Evaluation Vital Signs: Vital Signs Temp Pulse Resp BP Pulse Ox 12/22/20 11:29 97.9 F 63 17 100/48 L 96 12/22/20 09:12 64 106/52 L 98 12/22/20 07:51 98.2 F 64 17 106/52 L 98 12/22/20 03:08 99.6 F 65 18 112/52 L 99 Anesthesia: Spinal and Nerve Block Mental Status: Awake Pain Control: Satisfactory Nausea/Vomiting: None Hydration: Adequate Anesthesia-Related Issues: No Anes. Related Issues
--- NOTE | 2020-12-22 13:58 | MHC.CM.PN ---
NURSE TRAIN ENGINEER NOTE ELECTRONIC MEDICAL RECORD REVIEWED MET WITH PATIENT AND EXPLAINED THE ROLE OF THE NURSE TRAIN ENGINEER, EXPLAINED THE ROLE OF THE NURSE TRAIN ENGINEER TO HER IN THE TRANSITION FROM THE HOSPITAL TO HOME,EDUCATED ABOUT THE IMPORTANCE OF HAVING A HEALTH CARE PROXY, PATIENT REPORTED THAT SHE HAS [facility] FOR NURSING AND MEDICATION MANAGEMENT MENTAL HEALTH COUNSELING (PSYCHIATRIST AND THERAPIST) [facility] FOR HER JOIST SETTER SERVICES IMM EXPLAINED AND GIVEN TO PATIENT- PATIENT LIVES ALONE IN APARTEMENT WITH ELEVATOR. SHE HAS A NEBULIZER AT HOME SELF BOUGHT, SHE HAS [facility] SERVICES FOR MEDICATION MANAGEMENT , SHE REPORTED THAT SHE HAS A HISTORY OF USING DRUGS CRACK, COCAINE AND HAS BEEN CLEAN OVER 5 YRS NOW SHE WAS ON METHADONE BUT DID NOT LIKE IT , SHE IS NOW ON SUBOXONE AND HER DOCTR AT [employer] PROGRAM IS WEANING HER DOWN FROM THIS, SHE REPORTED TO DEANGELO TAYLOR TAKING MARIJUANA FOR HER PAIN MANAGEMENT SHE IS HERE TODAY FOR ELECTIVE RIGHT KNEE REVISION AND HAS A PROVENA WOUND VAC IN PLACE SHE REPORTS MONIQUE HER FAMILY HEPS HER OUT
--- NOTE | 2020-12-22 15:52 | P.PNIM_ITS ---
Subjective Subjective Date of Service: 12/22/20 Interval History: Patient complaining of right knee pain, denies nausea vomiting tolerating diet, denies chest pain palpitation headache or dizziness. ROS General no headache, no dizziness ,no fever chills. CVS no chest pain, no palpitation. Respiratory no cough, no sob Gastrointestinal no nausea, no vomiting, no abdominal pain Physical Exam Vital Signs: Vital Signs: Last Vital Signs Temp 96.8 F 12/22/20 15:40 Pulse 68 12/22/20 15:40 Resp 18 12/22/20 15:40 BP 116/54 L 12/22/20 15:40 Pulse Ox 97 12/22/20 15:40 Body Mass Index 31.4 General patient resting comfortably mild distress Neck supple no JVD. CVS regular rate rhythm, Respiratory lungs clear to auscultation, no respiratory distress, no rhonchi. Gastrointestinal abdomen soft, nontender, bowel sounds audible, no guarding , no rigidity. Extremities right knee dressing in place. Neuro nonfocal ,speech clear. Skin no rash Objective Data Current Medications Generic Name Dose Route Start Last Admin Trade Name Freq PRN Reason Stop Dose Admin Acetaminophen 650 mg 12/21/20 15:50 12/22/20 08:09 Acetaminophen 325 Mg Tablet PO 650 mg Q6H PRN Administration Pain, Mild (Pain Scale 1-3) Albuterol/Ipratropium 3 ml 12/21/20 19:12 Albuterol/Iprat 2.5/0.5mg 3 Ml Ampul.Neb INHALE Q4H PRN Shortness of Breath/Wheezing Aspirin 325 mg 12/22/20 09:00 12/22/20 09:04 Aspirin 325 Mg Tablet PO 325 mg BID [facility] Administration Atenolol 50 mg 12/21/20 21:00 12/21/20 20:43 Atenolol 50 Mg Tablet PO 50 mg BEDTIME [facility] Administration Protocol Buprenorphine/Naloxone 0.5 film 12/22/20 09:00 12/22/20 08:04 Buprenorphine/Naloxone 2/0.5mg Film SUBLINGUAL Not Given DAILY [facility] Celecoxib 200 mg 12/21/20 21:00 12/22/20 08:04 Celecoxib 200 Mg Capsule PO 200 mg BID [facility] Administration Docusate Sodium 100 mg 12/21/20 21:00 12/22/20 07:59 Docusate Sodium 100 Mg Capsule PO 100 mg BID [facility] Administration Duloxetine HCl 60 mg 12/21/20 21:00 12/22/20 07:59 Duloxetine Hcl 60 Mg Capsule. PO 60 mg BID [facility] Administration Fluticasone Propionate 1 spray 12/21/20 21:00 12/22/20 10:38 Fluticasone Propionate Nasal 16 Gm [place] NOSTRIL-B Not Given BID [facility] Gabapentin 800 mg 12/21/20 21:00 12/22/20 14:34 Gabapentin 400 Mg Capsule PO 800 mg TID [facility] Administration Hydromorphone HCl 0.5 mg 12/21/20 15:50 12/22/20 12:09 Hydromorphone Hcl 0.5 Mg/0.5 Ml Syringe IVPUSH 0.5 mg Q3H PRN Administration Pain, Severe (Pain Scale 7-10) Loratadine 10 mg 12/22/20 09:00 12/22/20 08:00 Loratadine 10 Mg Tablet PO 10 mg DAILY [facility] Administration Losartan Potassium 100 mg 12/22/20 09:00 12/22/20 08:00 Losartan Potassium 50 Mg Tablet PO 100 mg DAILY [facility] Administration Protocol Naloxone HCl 0.2 mg 12/21/20 15:50 Naloxone Hcl 0.4 Mg/Ml Vial IVPUSH Q2M PRN Excessive sedation or RR < 8 Omeprazole 40 mg 12/22/20 06:30 12/22/20 05:41 Omeprazole 40 Mg Capsule. PO 40 mg BID@0630,1630 [facility] Administration Ondansetron HCl 4 mg 12/21/20 15:50 Ondansetron Hcl 4 Mg/2 Ml Vial IVPUSH Q8H PRN Nausea and Vomiting Oxycodone HCl 10 mg 12/21/20 15:50 12/22/20 08:09 Oxycodone Hcl Immed Release 5 Mg Tablet PO 10 mg Q4H PRN Administration Pain, Moderate (Pain Scale 4-6 Oxycodone HCl 10 mg 12/21/20 21:00 12/22/20 09:05 Oxycodone Hcl Er 10 Mg Tab.Er.12h PO 10 mg BID [facility] Administration Sodium Chloride 3 ml 12/21/20 16:00 12/22/20 09:06 0.9 % Sodium Chloride Flush 3 Ml Syringe IVFLUSH 3 ml QSHIFT [facility] Administration Trazodone HCl 50 mg 12/21/20 21:00 12/21/20 20:43 Trazodone Hcl 50 Mg Tablet PO 50 mg BEDTIME [facility] Administration Vitamin D 50 mcg 12/22/20 09:00 12/22/20 07:59 Cholecalciferol (Vitamin D3) 25 Mcg Tablet PO 50 mcg DAILY [facility] Administration Zolpidem Tartrate 10 mg 12/21/20 19:11 Zolpidem Tartrate 5 Mg Tablet PO BEDTIME PRN Insomnia Labs CBC & Chem 7: 12/22/20 06:33 12/22/20 06:33 Assessment and Plan (1) Acute blood loss anemia: Status: Acute (2) Hypertension: Status: Acute (3) Status post revision of total knee replacement: Status: Acute (4) Osteoarthritis of right knee: Status: Acute Assessment and Plan: 60-year-old female with a past medical history of osteoarthritis, prediabetes, GERD admitted to the orthopedic service for right knee Arthroplasty. Status post right knee arthroplasty postoperative day 1 Patient complains of pain, continue IV Dilaudid by mouth oxycodone and Tylenol, DC IV fluid On aspirin for DVT prophylaxis. Encourage incentive spirometry out of bed to chair as per PT Acute blood loss anemia noted to have drop in hematocrit from 34.7-26.7 Hold blood transfusion since patient asymptomatic, Follow CBC closely and transfuse if further drop in hematocrit. History of hypertension Noted to have low blood pressure today will hold Norvasc continue to Renzo follow blood pressure closely Diabetes: Blood sugars stable continue Insulin sliding scale. History of anxiety/depression: Continue home medications no psychiatric decompensation. Disposition as per Ortho
[2020-12-22 20:34] LABS: Glucose, Whole Blood 139 mg/dL (60-115)
[2020-12-22] MEDS: Zolpidem Tartrate 5 MG TABLET 10 MG PO (20:40)
[2020-12-22] MEDS: traZODone HCL 50 MG TABLET PO (20:42)
[2020-12-22] MEDS: atenoloL 50 MG TABLET PO (20:42)
[2020-12-22] MEDS: Fluticasone Propionate Nasal 16 GM SPRAY 1 SPRAY NOSTRIL-B (22:39)
[2020-12-23] VITALS (9 sets, daily range): BP systolic 98–125; BP diastolic 52–62; PULSE 72–94; RESP 14–20; TEMP 36.1–37.1; O2SAT 92–98
[2020-12-23] MEDS: HYDROmorphone HCl 0.5 MG/0.5 ML SYRINGE IVPUSH ×5 (00:02→23:24)
[2020-12-23] MEDS: 0.9 % Sodium Chloride Flush 3 ML SYRINGE IVFLUSH ×4 (00:56→21:30)
[2020-12-23 06:17] LABS: MANUAL DIFF FLAG NO
[2020-12-23] MEDS: Omeprazole 40 MG CAPSULE.DR PO ×2 (06:24→16:12)
[2020-12-23 06:45] LABS: Basophils Percent Auto 0.3 % (0-2); Eosinophils Absolute Auto 0.3 X10*3/uL (0.0-0.4); Eosinophils Percent Auto 3.2 % (0-4); Hematocrit 26.5 % (37-47); Hemoglobin 8.5 g/dl (12.0-16.0); Imm Gran Abs Auto 0.03 X10*3/uL (0.00-0.03); Imm Gran Pct Auto 0.3 % (0.0-0.4); Lymphocytes Percent Auto 19.4 % (20-40); Mean Corpuscular HGB Conc 32.1 g/dl (31.0-35.0); Mean Corpuscular Hemoglobin 29.8 pg (27.0-33.0); Mean Platelet Volume 10.8 fL (9.4-12.3); Monocytes Absolute Auto 1.1 X10*3/uL (0.1-1.2); Monocytes Percent Auto 10.1 % (2-11); Neutrophils Percent Auto 66.7 % (45-73); Platelet Count 201 X10*3/uL (160-400); Red Blood Count 2.85 X10*6/uL (4.20-5.50); Red Cell Distribution Width 12.2 % (11.0-16.0); White Blood Count 10.5 X10*3/uL (4.8-10.8)
[2020-12-23 06:59] LABS: Anion Gap 10 (12-20); Blood Urea Nitrogen 13 mg/dL (9-16); Calcium 8.3 mg/dL (8.4-10.2); Carbon Dioxide 31 mmol/L (22-29); Chloride 102 mmol/L (96-108); Creatinine Clr Calc Pharmacy 93.7; Estimated Glomerular Filt Rate > 60; Glucose Fasting 139 mg/dL (60-99); Potassium 4.1 mmol/L (3.3-5.1); Sodium 139 mmol/L (135-145)
[2020-12-23 08:02] LABS: Glucose, Whole Blood 123 mg/dL (60-115)
[2020-12-23] MEDS: Aspirin 325 MG TABLET PO ×2 (08:17→21:26)
[2020-12-23] MEDS: DULoxetine HCl 60 MG CAPSULE.DR PO ×2 (08:17→21:25)
[2020-12-23] MEDS: Docusate Sodium 100 MG CAPSULE PO ×2 (08:17→21:26)
[2020-12-23] MEDS: Cholecalciferol (Vitamin D3) 25 MCG TABLET 50 MCG PO (08:17)
[2020-12-23] MEDS: Gabapentin 400 MG CAPSULE 800 MG PO ×3 (08:17→21:25)
[2020-12-23] MEDS: Losartan Potassium 50 MG TABLET 100 MG PO (08:17)
[2020-12-23] MEDS: Loratadine 10 MG TABLET PO (08:17)
[2020-12-23] MEDS: oxyCODONE HCl ER 10 MG TAB.ER.12H PO ×2 (08:17→21:25)
[2020-12-23] MEDS: Celecoxib 200 MG CAPSULE PO ×2 (08:17→21:26)
--- NOTE | 2020-12-23 09:07 | P.PNOP_ITS ---
Subjective Subjective Date of Service: 12/23/20 Interval history: POD 2 s/p Revision RT TKA No overnight events, she is resting in bed, worked with PT yesterday . She has pain which is managmable but still uncomfortable. No concerns. Physical Exam Vital Signs: Vital Signs: Last Vital Signs Temp 97 F 12/23/20 08:00 Pulse 77 12/23/20 08:00 Resp 16 12/23/20 08:00 BP 125/56 L 12/23/20 08:00 Pulse Ox 93 12/23/20 08:00 Body Mass Index 31.4 Const: General: cooperative, healthy appearing and no acute distress Resp: Effort & Inspection: normal respiratory effort and able to speak in complete sentences Cardio: Rate: regular rate Peripheral pulses: Peripheral pulses 2+ throughout GI: Palpation (GI): Soft to palpation Skin: General skin exam: no rashes or lesions noted Extrem: Other: Right knee incision clean, dry and intact. No erythema, mild swelling. Calf supple non tender. Progress Note: A&P Assessment and plan (1) Status post revision of total knee replacement: Status: Acute Assessment and Plan: Continue pain mgmnt Continue asa for dvt ppx Continue PT for Revision RT TKA Dispo planning-Pending PT eval, pain mgmnt Fall Risk Details Current Medications: Current Medications Generic Name Dose Route Start Last Admin Trade Name Alq PRN Reason Stop Dose Admin Acetaminophen 650 mg 12/21/20 15:50 12/22/20 08:09 Acetaminophen 325 Mg Tablet PO 650 mg Q6H PRN Administration Pain, Mild (Pain Scale 1-3) Albuterol/Ipratropium 3 ml 12/21/20 19:12 Albuterol/Iprat 2.5/0.5mg 3 Ml Ampul.Neb INHALE Q4H PRN Shortness of Breath/Wheezing Aspirin 325 mg 12/22/20 09:00 12/23/20 08:17 Aspirin 325 Mg Tablet PO 325 mg BID GISELL Administration Atenolol 50 mg 12/21/20 21:00 12/22/20 20:42 Atenolol 50 Mg Tablet PO 50 mg BEDTIME GISELL Administration Protocol Buprenorphine/Naloxone 0.5 film 12/22/20 09:00 12/23/20 08:23 Buprenorphine/Naloxone 2/0.5mg Film SUBLINGUAL Not Given DAILY GISELL Celecoxib 200 mg 12/21/20 21:00 12/23/20 08:17 Celecoxib 200 Mg Capsule PO 200 mg BID [facility] Administration Docusate Sodium 100 mg 12/21/20 21:00 12/23/20 08:17 Docusate Sodium 100 Mg Capsule PO 100 mg BID [facility] Administration Duloxetine HCl 60 mg 12/21/20 21:00 12/23/20 08:17 Duloxetine Hcl 60 Mg Capsule. PO 60 mg BID GISELL Administration Fluticasone Propionate 1 spray 12/21/20 21:00 12/22/20 22:39 Fluticasone Propionate Nasal 16 Gm [place] NOSTRIL-B 1 spray BID [facility] Administration Gabapentin 800 mg 12/21/20 21:00 12/23/20 08:17 Gabapentin 400 Mg Capsule PO 800 mg TID [facility] Administration Hydromorphone HCl 0.5 mg 12/21/20 15:50 12/23/20 06:27 Hydromorphone Hcl 0.5 Mg/0.5 Ml Syringe IVPUSH 0.5 mg Q3H PRN Administration Pain, Severe (Pain Scale 7-10) Insulin Human Lispro 0 unit 12/22/20 21:00 12/23/20 08:10 Insulin Lispro 100 Unit/Ml 3 Ml Vial SUBCUT Not Given QIDACHS [facility] Protocol Loratadine 10 mg 12/22/20 09:00 12/23/20 08:17 Loratadine 10 Mg Tablet PO 10 mg DAILY [facility] Administration Losartan Potassium 100 mg 12/22/20 09:00 12/23/20 08:17 Losartan Potassium 50 Mg Tablet PO 100 mg DAILY [facility] Administration Protocol Naloxone HCl 0.2 mg 12/21/20 15:50 Naloxone Hcl 0.4 Mg/Ml Vial IVPUSH Q2M PRN Excessive sedation or RR < 8 Omeprazole 40 mg 12/22/20 06:30 12/23/20 06:24 Omeprazole 40 Mg Capsule. PO 40 mg BID@0630,1630 [facility] Administration Ondansetron HCl 4 mg 12/21/20 15:50 Ondansetron Hcl 4 Mg/2 Ml Vial IVPUSH Q8H PRN Nausea and Vomiting Oxycodone HCl 10 mg 12/21/20 15:50 12/22/20 22:38 Oxycodone Hcl Immed Release 5 Mg Tablet PO 10 mg Q4H PRN Administration Pain, Moderate (Pain Scale 4-6 Oxycodone HCl 10 mg 12/21/20 21:00 12/23/20 08:17 Oxycodone Hcl Er 10 Mg Tab.Er.12h PO 10 mg BID GISELL Administration Sodium Chloride 3 ml 12/21/20 16:00 12/23/20 08:18 0.9 % Sodium Chloride Flush 3 Ml Syringe IVFLUSH 3 ml QSHIFT GISELL Administration Trazodone HCl 50 mg 12/21/20 21:00 12/22/20 20:42 Trazodone Hcl 50 Mg Tablet PO 50 mg BEDTIME GISELL Administration Vitamin D 50 mcg 12/22/20 09:00 12/23/20 08:17 Cholecalciferol (Vitamin D3) 25 Mcg Tablet PO 50 mcg DAILY GISELL Administration Zolpidem Tartrate 10 mg 12/21/20 19:11 12/22/20 20:40 Zolpidem Tartrate 5 Mg Tablet PO 10 mg BEDTIME PRN Administration Insomnia Time Spent With Patient Time: Total time spent is greater than 50% in coordination of care (as documented) at patient's floor/unit and/or counseling patient: Time with patient: less than 15 minutes
[2020-12-23] MEDS: Ketorolac Tromethamine 15 MG/ML VIAL IV (10:05)
[2020-12-23] MEDS: Fluticasone Propionate Nasal 16 GM SPRAY 1 SPRAY NOSTRIL-B ×2 (10:08→21:29)
[2020-12-23 11:32] LABS: Glucose, Whole Blood 127 mg/dL (60-115)
--- NOTE | 2020-12-23 12:31 | P.PNIM_ITS ---
Subjective Subjective Date of Service: 12/23/20 Interval History: knee pain Cardiovascular Cardiovascular: Reports no additional cardiovascular complaints Gastrointestinal Gastrointestinal: Reports no additional gastrointestinal complaints Physical Exam Vital Signs: Vital Signs: Last Vital Signs Temp 97.2 F 12/23/20 11:27 Pulse 72 12/23/20 11:27 Resp 16 12/23/20 11:27 BP 116/52 L 12/23/20 11:27 Pulse Ox 97 12/23/20 11:27 Body Mass Index 31.4 General: AO X 3, no acute distress Resp: CTA bilateral CVS: S1,S2,RRR GI: soft, non tender, non distended Neuro: motor grossly intact Psych: appropriate affect Objective Data Current Medications Generic Name Dose Route Start Last Admin Trade Name Freq PRN Reason Stop Dose Admin Acetaminophen 650 mg 12/21/20 15:50 12/22/20 08:09 Acetaminophen 325 Mg Tablet PO 650 mg Q6H PRN Administration Pain, Mild (Pain Scale 1-3) Albuterol/Ipratropium 3 ml 12/21/20 19:12 Albuterol/Iprat 2.5/0.5mg 3 Ml Ampul.Neb INHALE Q4H PRN Shortness of Breath/Wheezing Aspirin 325 mg 12/22/20 09:00 12/23/20 08:17 Aspirin 325 Mg Tablet PO 325 mg BID GISELL Administration Atenolol 50 mg 12/21/20 21:00 12/22/20 20:42 Atenolol 50 Mg Tablet PO 50 mg BEDTIME IGSELL Administration Protocol Buprenorphine/Naloxone 0.5 film 12/22/20 09:00 12/23/20 08:23 Buprenorphine/Naloxone 2/0.5mg Film SUBLINGUAL Not Given DAILY GISELL Celecoxib 200 mg 12/21/20 21:00 12/23/20 08:17 Celecoxib 200 Mg Capsule PO 200 mg BID GISELL Administration Docusate Sodium 100 mg 12/21/20 21:00 12/23/20 08:17 Docusate Sodium 100 Mg Capsule PO 100 mg BID GISELL Administration Duloxetine HCl 60 mg 12/21/20 21:00 12/23/20 08:17 Duloxetine Hcl 60 Mg Capsule.Dr PO 60 mg BID GISELL Administration Fluticasone Propionate 1 spray 12/21/20 21:00 12/23/20 10:08 Fluticasone Propionate Nasal 16 Gm [place] NOSTRIL-B 1 spray BID GISELL Administration Gabapentin 800 mg 12/21/20 21:00 12/23/20 08:17 Gabapentin 400 Mg Capsule PO 800 mg TID GISELL Administration Hydromorphone HCl 0.5 mg 12/21/20 15:50 12/23/20 09:29 Hydromorphone Hcl 0.5 Mg/0.5 Ml Syringe IVPUSH 0.5 mg Q3H PRN Administration Pain, Severe (Pain Scale 7-10) Insulin Human Lispro 0 unit 12/22/20 21:00 12/23/20 11:34 Insulin Lispro 100 Unit/Ml 3 Ml Vial SUBCUT Not Given QIDACHS [facility] Protocol Ketorolac Tromethamine 15 mg 12/23/20 09:32 12/23/20 10:05 Ketorolac Tromethamine 15 Mg/Ml Vial IV 15 mg Q6H PRN Administration Pain, Mild (Pain Scale 1-3) Loratadine 10 mg 12/22/20 09:00 12/23/20 08:17 Loratadine 10 Mg Tablet PO 10 mg DAILY [facility] Administration Losartan Potassium 100 mg 12/22/20 09:00 12/23/20 08:17 Losartan Potassium 50 Mg Tablet PO 100 mg DAILY [facility] Administration Protocol Naloxone HCl 0.2 mg 12/21/20 15:50 Naloxone Hcl 0.4 Mg/Ml Vial IVPUSH Q2M PRN Excessive sedation or RR < 8 Omeprazole 40 mg 12/22/20 06:30 12/23/20 06:24 Omeprazole 40 Mg Capsule.Dr PO 40 mg BID@0630,1630 [facility] Administration Ondansetron HCl 4 mg 12/21/20 15:50 Ondansetron Hcl 4 Mg/2 Ml Vial IVPUSH Q8H PRN Nausea and Vomiting Oxycodone HCl 10 mg 12/21/20 15:50 12/22/20 22:38 Oxycodone Hcl Immed Release 5 Mg Tablet PO 10 mg Q4H PRN Administration Pain, Moderate (Pain Scale 4-6 Oxycodone HCl 10 mg 12/21/20 21:00 12/23/20 08:17 Oxycodone Hcl Er 10 Mg Tab.Er.12h PO 10 mg BID GISELL Administration Sodium Chloride 3 ml 12/21/20 16:00 12/23/20 08:18 0.9 % Sodium Chloride Flush 3 Ml Syringe IVFLUSH 3 ml QSHIFT [facility] Administration Trazodone HCl 50 mg 12/21/20 21:00 12/22/20 20:42 Trazodone Hcl 50 Mg Tablet PO 50 mg BEDTIME GISELL Administration Vitamin D 50 mcg 12/22/20 09:00 12/23/20 08:17 Cholecalciferol (Vitamin D3) 25 Mcg Tablet PO 50 mcg DAILY GISELL Administration Zolpidem Tartrate 10 mg 12/21/20 19:11 12/22/20 20:40 Zolpidem Tartrate 5 Mg Tablet PO 10 mg BEDTIME PRN Administration Insomnia Labs CBC & Chem 7: 12/23/20 05:57 12/23/20 05:57 Assessment and Plan (1) Acute blood loss anemia: Status: Acute (2) Hypertension: Status: Acute (3) Status post revision of total knee replacement: Status: Acute (4) Osteoarthritis of right knee: Status: Acute Assessment and Plan: 60-year-old female with a past medical history of osteoarthritis, prediabetes, GERD admitted to the orthopedic service for right knee Arthroplasty. Status post right knee arthroplasty postoperative day 2 Patient complains of pain, continue IV Dilaudid by mouth oxycodone and Tylenol, DC IV fluid On aspirin for DVT prophylaxis. Encourage incentive spirometry out of bed to chair as per PT Acute blood loss anemia, perioperative stable, no need for transfusion History of hypertension Noted to have low blood pressures will continue to hold Norvasc continue losartan, atenolol Diabetes Insulin sliding scale. History of anxiety/depression: Continue home medications no psychiatric decompensation. Disposition as per Ortho
[2020-12-23] MEDS: Insulin Lispro 100 UNIT/ML 3 ML VIAL SUBCUT (16:12)
[2020-12-23 16:17] LABS: Glucose, Whole Blood 159 mg/dL (60-115)
[2020-12-23 20:44] LABS: Glucose, Whole Blood 139 mg/dL (60-115)
[2020-12-23] MEDS: traZODone HCL 50 MG TABLET PO (21:25)
[2020-12-23] MEDS: atenoloL 50 MG TABLET PO (21:28)
[2020-12-24 03:56] VITALS: BP 101/64; PULSE 70; RESP 18; TEMP 36.6; O2SAT 97
[2020-12-24 06:08] LABS: MANUAL DIFF FLAG NO
[2020-12-24] MEDS: HYDROmorphone HCl 0.5 MG/0.5 ML SYRINGE IVPUSH ×2 (06:14→11:36)
[2020-12-24] MEDS: Omeprazole 40 MG CAPSULE.DR PO (06:14)
[2020-12-24 06:21] LABS: Basophils Percent Auto 0.3 % (0-2); Eosinophils Absolute Auto 0.4 X10*3/uL (0.0-0.4); Eosinophils Percent Auto 4.2 % (0-4); Hematocrit 26.1 % (37-47); Hemoglobin 8.3 g/dl (12.0-16.0); Imm Gran Abs Auto 0.03 X10*3/uL (0.00-0.03); Imm Gran Pct Auto 0.3 % (0.0-0.4); Lymphocytes Absolute Auto 2.7 X10*3/uL (1.2-4.9); Lymphocytes Percent Auto 26.2 % (20-40); Mean Corpuscular HGB Conc 31.8 g/dl (31.0-35.0); Mean Corpuscular Hemoglobin 29.7 pg (27.0-33.0); Mean Corpuscular Volume 93.5 fL (80-98); Mean Platelet Volume 10.9 fL (9.4-12.3); Monocytes Absolute Auto 0.9 X10*3/uL (0.1-1.2); Monocytes Percent Auto 8.3 % (2-11); Neutrophils Absolute Auto 6.4 X10*3/uL (2.0-8.3); Neutrophils Percent Auto 60.7 % (45-73); Platelet Count 235 X10*3/uL (160-400); Red Blood Count 2.79 X10*6/uL (4.20-5.50); Red Cell Distribution Width 12.1 % (11.0-16.0); White Blood Count 10.5 X10*3/uL (4.8-10.8)
[2020-12-24 07:02] LABS: Anion Gap 10 (12-20); Blood Urea Nitrogen 13 mg/dL (9-16); Calcium 8.7 mg/dL (8.4-10.2); Carbon Dioxide 32 mmol/L (22-29); Chloride 101 mmol/L (96-108); Creatinine Clr Calc Pharmacy 86.5; Estimated Glomerular Filt Rate > 60; Glucose Fasting 123 mg/dL (60-99); Potassium 4.1 mmol/L (3.3-5.1); Sodium 139 mmol/L (135-145)
[2020-12-24 07:36] LABS: Glucose, Whole Blood 119 mg/dL (60-115)
[2020-12-24 07:53] VITALS: BP 113/55; PULSE 75; TEMP 36.4; O2SAT 95
[2020-12-24] MEDS: oxyCODONE HCl Immed Release 5 MG TABLET 10 MG PO (08:27)
[2020-12-24 09:13] VITALS: BP 113/55; PULSE 75; O2SAT 95
[2020-12-24] MEDS: DULoxetine HCl 60 MG CAPSULE.DR PO (09:28)
[2020-12-24] MEDS: Losartan Potassium 50 MG TABLET 100 MG PO (09:28)
[2020-12-24] MEDS: oxyCODONE HCl ER 10 MG TAB.ER.12H PO (09:28)
[2020-12-24] MEDS: Celecoxib 200 MG CAPSULE PO (09:28)
[2020-12-24] MEDS: Loratadine 10 MG TABLET PO (09:28)
[2020-12-24] MEDS: Aspirin 325 MG TABLET PO (09:28)
[2020-12-24] MEDS: Cholecalciferol (Vitamin D3) 25 MCG TABLET 50 MCG PO (09:28)
[2020-12-24] MEDS: Gabapentin 400 MG CAPSULE 800 MG PO (09:28)
[2020-12-24] MEDS: Docusate Sodium 100 MG CAPSULE PO (09:28)
[2020-12-24] MEDS: Fluticasone Propionate Nasal 16 GM SPRAY 1 SPRAY NOSTRIL-B (09:29)
[2020-12-24] MEDS: 0.9 % Sodium Chloride Flush 3 ML SYRINGE IVFLUSH (09:30)
--- NOTE | 2020-12-24 10:15 | MHC.CM.PN ---
Addendum entered by Lillian Cage 12/24/20 13:49: PATIENT STARTED T HAVE SOME BLISTERING AROUND THE WOUND VAC , ORTHOPEDIC PA CHANGED DRESSING APPLICATIN OF NEW ONE AND DISCONTINUED THE WOUND VAC. I SPOKE WITH [facility] CONFIRMING DISCHARGE AND THAT VIA ALL SCRIPT FAXED OVER D/C SUMMARY AND D/C INSTRUCTIONS TO [facility] , HE CNFIRMED THAT NURSING WILL BE OUT LATER THIS AFTERNOON TO SEE PATIENT Original Note: nurse healthcare account manager note electronic medical record reviewed along with case discussed with staff nurse and hospitalist/orthopedic pa anticipate patient to be discharged home today updates given to [facility] [phone] and will fax via [employer] discharge instructions once competed discharge plan home with [facility] nursing 1, medication management and set 3 sef resumption of her mental health counseling and suboxone program through [facility] daily , 2, new for diagnosis assessment , monitoring pain management of medications. develop action plan of whom to call for what/when and whom to call, (pro[facility]a wound vac this dressing will be changed by the surgeons before discharge and converted over to [facility] wound vac. home physical therapy 3. 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
--- NOTE | 2020-12-24 10:30 | P.PNIM_ITS ---
Subjective Subjective Date of Service: 12/24/20 Interval History: pain Cardiovascular Cardiovascular: Reports no additional cardiovascular complaints Gastrointestinal Gastrointestinal: Reports no additional gastrointestinal complaints Physical Exam Vital Signs: Vital Signs: Last Vital Signs Temp 97.6 F 12/24/20 07:53 Pulse 75 12/24/20 09:13 Resp 18 12/24/20 03:56 BP 113/55 L 12/24/20 09:13 Pulse Ox 95 12/24/20 09:13 Body Mass Index 31.4 General: AO X 3, no acute distress Resp: CTA bilateral CVS: S1,S2,RRR GI: soft, non tender, non distended Neuro: motor grossly intact Psych: appropriate affect Objective Data Current Medications Generic Name Dose Route Start Last Admin Trade Name Freq PRN Reason Stop Dose Admin Acetaminophen 650 mg 12/21/20 15:50 12/22/20 08:09 Acetaminophen 325 Mg Tablet PO 650 mg Q6H PRN Administration Pain, Mild (Pain Scale 1-3) Albuterol/Ipratropium 3 ml 12/21/20 19:12 Albuterol/Iprat 2.5/0.5mg 3 Ml Ampul.Neb INHALE Q4H PRN Shortness of Breath/Wheezing Aspirin 325 mg 12/22/20 09:00 12/24/20 09:28 Aspirin 325 Mg Tablet PO 325 mg BID GISELL Administration Atenolol 50 mg 12/21/20 21:00 12/23/20 21:28 Atenolol 50 Mg Tablet PO 50 mg BEDTIME GISELL Administration Protocol Buprenorphine/Naloxone 0.5 film 12/22/20 09:00 12/24/20 09:29 Buprenorphine/Naloxone 2/0.5mg Film SUBLINGUAL Not Given DAILY GISELL Celecoxib 200 mg 12/21/20 21:00 12/24/20 09:28 Celecoxib 200 Mg Capsule PO 200 mg BID GISELL Administration Docusate Sodium 100 mg 12/21/20 21:00 12/24/20 09:28 Docusate Sodium 100 Mg Capsule PO 100 mg BID GISELL Administration Duloxetine HCl 60 mg 12/21/20 21:00 12/24/20 09:28 Duloxetine Hcl 60 Mg Capsule.Dr PO 60 mg BID GISELL Administration Fluticasone Propionate 1 spray 12/21/20 21:00 12/24/20 09:29 Fluticasone Propionate Nasal 16 Gm [place] NOSTRIL-B 1 spray BID GISELL Administration Gabapentin 800 mg 12/21/20 21:00 12/24/20 09:28 Gabapentin 400 Mg Capsule PO 800 mg TID GISELL Administration Hydromorphone HCl 0.5 mg 12/21/20 15:50 12/24/20 06:14 Hydromorphone Hcl 0.5 Mg/0.5 Ml Syringe IVPUSH 0.5 mg Q3H PRN Administration Pain, Severe (Pain Scale 7-10) Insulin Human Lispro 0 unit 12/22/20 21:00 12/24/20 07:51 Insulin Lispro 100 Unit/Ml 3 Ml Vial SUBCUT Not Given QIDACHS [facility] Protocol Ketorolac Tromethamine 15 mg 12/23/20 09:32 12/23/20 10:05 Ketorolac Tromethamine 15 Mg/Ml Vial IV 15 mg Q6H PRN Administration Pain, Mild (Pain Scale 1-3) Loratadine 10 mg 12/22/20 09:00 12/24/20 09:28 Loratadine 10 Mg Tablet PO 10 mg DAILY [facility] Administration Losartan Potassium 100 mg 12/22/20 09:00 12/24/20 09:28 Losartan Potassium 50 Mg Tablet PO 100 mg DAILY [facility] Administration Protocol Naloxone HCl 0.2 mg 12/21/20 15:50 Naloxone Hcl 0.4 Mg/Ml Vial IVPUSH Q2M PRN Excessive sedation or RR < 8 Omeprazole 40 mg 12/22/20 06:30 12/24/20 06:14 Omeprazole 40 Mg Capsule. PO 40 mg BID@0630,1630 [facility] Administration Ondansetron HCl 4 mg 12/21/20 15:50 Ondansetron Hcl 4 Mg/2 Ml Vial IVPUSH Q8H PRN Nausea and Vomiting Oxycodone HCl 10 mg 12/21/20 15:50 12/24/20 08:27 Oxycodone Hcl Immed Release 5 Mg Tablet PO 10 mg Q4H PRN Administration Pain, Moderate (Pain Scale 4-6 Oxycodone HCl 10 mg 12/21/20 21:00 12/24/20 09:28 Oxycodone Hcl Er 10 Mg Tab.Er.12h PO 10 mg BID GISELL Administration Sodium Chloride 3 ml 12/21/20 16:00 12/24/20 09:30 0.9 % Sodium Chloride Flush 3 Ml Syringe IVFLUSH 3 ml QSHIFT [facility] Administration Trazodone HCl 50 mg 12/21/20 21:00 12/23/20 21:25 Trazodone Hcl 50 Mg Tablet PO 50 mg BEDTIME GISELL Administration Vitamin D 50 mcg 12/22/20 09:00 12/24/20 09:28 Cholecalciferol (Vitamin D3) 25 Mcg Tablet PO 50 mcg DAILY GISELL Administration Zolpidem Tartrate 10 mg 12/21/20 19:11 12/22/20 20:40 Zolpidem Tartrate 5 Mg Tablet PO 10 mg BEDTIME PRN Administration Insomnia Labs CBC & Chem 7: 12/24/20 05:51 12/24/20 05:51 Assessment and Plan (1) Acute blood loss anemia: Status: Acute (2) Hypertension: Status: Acute (3) Status post revision of total knee replacement: Status: Acute (4) Osteoarthritis of right knee: Status: Acute Assessment and Plan: 60-year-old female with a past medical history of osteoarthritis, prediabetes, GERD admitted to the orthopedic service for right knee Arthroplasty. Status post right knee arthroplasty postoperative day 3 On aspirin for DVT prophylaxis. Acute blood loss anemia, perioperative stable, no need for transfusion History of hypertension Noted to have low blood pressures will continue to hold Norvasc continue losartan, atenolol Diabetes Insulin sliding scale. History of anxiety/depression: Continue home medications no psychiatric decompensation. Disposition as per Ortho
[2020-12-24 11:12] LABS: Glucose, Whole Blood 162 mg/dL (60-115)
[2020-12-24] MEDS: Insulin Lispro 100 UNIT/ML 3 ML VIAL SUBCUT (11:35)
[2020-12-24 11:37] VITALS: BP 112/50; PULSE 69; TEMP 36.6; O2SAT 96
--- NOTE | 2020-12-24 13:16 | P.DS_ITS ---
DS: Providers Provider Date of Service: 12/29/20 Date of admission: 12/21/20 06:07 Primary care physician: Gildardo Yin MD Consults: 12/21/20 15:50 Consult to Hospitalist Routine Consulting Provider: Hospitalist Reason For Exam: medical management DS: Diagnosis Discharge Diagnosis (1) Status post revision of total knee replacement: Status: Acute Problem details: This is a 60-year-old female who presented to our office with ongoing right knee pain. She was found have osteoarthritis of the right knee. She had failed all conservative treatment and continued to have pain with daily activities therefore she consented to move forward with right total knee arthroplasty. DS: Medications Discharge Medications Home Medications: Home Medications Medication Instructions Recorded Confirmed albuterol sulfate 90 mcg/actuation 2 puff PO Q4H PRN 09/07/20 12/13/20 aerosol inhaler atenolol 50 mg tablet 50 mg PO BEDTIME 09/07/20 12/13/20 blood sugar diagnostic #10 ea 09/07/20 11/08/20 buprenorphine 2 mg-naloxone 0.5 mg 0.5 film SUBLINGUAL DAILY 09/07/20 12/21/20 sublingual film cetirizine 10 mg tablet 10 mg PO DAILY 09/07/20 12/13/20 cholecalciferol (vitamin D3) 50 50 mcg PO DAILY 09/07/20 12/13/20 mcg (2,000 unit) tablet duloxetine 60 mg capsule,delayed 60 mg PO BID 09/07/20 12/13/20 release econazole 1 % topical cream 1 appl TOPICAL BEDTIME 09/07/20 11/19/20 ferrous gluconate 240 mg (27 mg 240 mg PO Q OTHER DAY 09/07/20 12/13/20 iron) tablet fluticasone propionate 50 1 spray INTRANASAL BID 09/07/20 12/13/20 mcg/actuation nasal spray,suspension gabapentin 800 mg tablet 800 mg PO TID 09/07/20 12/13/20 lancets 33 gauge #100 ea 09/07/20 11/08/20 losartan 100 mg tablet 100 mg PO DAILY 09/07/20 12/13/20 metformin 500 mg tablet 500 mg PO DAILY 09/07/20 12/13/20 simvastatin 20 mg tablet 20 mg PO BEDTIME 09/07/20 12/13/20 trazodone 50 mg tablet 50 mg PO BEDTIME 09/07/20 12/13/20 zolpidem 10 mg tablet 10 mg PO BEDTIME PRN 09/07/20 12/13/20 amlodipine 5 mg tablet 5 mg PO DAILY 09/27/20 12/13/20 Advair HFA 2 puff PO BID 12/21/20 12/21/20 Previous Rx's Medication Instructions Recorded omeprazole 40 mg capsule,delayed 40 mg PO BID 30 Days #60 cap 12/02/20 release acetaminophen 650 mg PO Q6H PRN #240 tab 12/24/20 aspirin 325 mg PO BID 14 Days #28 tab 12/24/20 celecoxib 200 mg PO BID 14 Days #28 cap 12/24/20 docusate sodium 100 mg PO BID 30 Days #60 cap 12/24/20 oxycodone 5 mg PO Q4H PRN 7 Days #42 tab 12/24/20 DS: Summary Hospital Course Hospital Course: The patient underwent a successful RT TKA, was transferred to PACU and then to the floor to recover. During their stay, their vitals were stable, afebrile at 97.8. Labs were unremarkable, H/H 8.3/26.1. POD 1 she was started on asa for DVT ppx, they also received PT services twice a day. Prior to discharge, their dressing was change, incision clean dry and intact, new Aquacel dressing applied and the plan was to be discharged home with VNA services,. Time Spent with Patient Time attestation: Total time spent providing and/or coordinating discharge services: Discharge coordination time: Greater than 30 minutes Physical Exam Vital Signs: Vital Signs: Last Vital Signs Temp 97.8 F 12/24/20 11:37 Pulse 69 12/24/20 11:37 Resp 18 12/24/20 03:56 BP 112/50 L 12/24/20 11:37 Pulse Ox 96 12/24/20 11:37 Body Mass Index 31.4 Extrem: Other: Right knee incision clean, dry and intact. No erythema, mild edema, calf supple non tender DS: Data Data Completed and Pending Completed studies during hospitalization [Text1]: Pending at discharge 12/21/20 09:54 Surgical [PTH] Routine Labs on day of discharge: Laboratory Results - last 24 hr 12/23/20 12/23/20 12/24/20 16:08 20:28 05:51 WBC 10.5 RBC 2.79 L Hgb 8.3 L Hct 26.1 L MCV 93.5 MCH 29.7 MCHC 31.8 RDW 12.1 Plt Count 235 MPV 10.9 Immature Gran % (Auto) 0.3 Neut % (Auto) 60.7 Lymph % (Auto) 26.2 Rankin % (Auto) 8.3 Eos % (Auto) 4.2 H Baso % (Auto) 0.3 Lymph # (Auto) 2.7 Rankin # (Auto) 0.9 Eos # (Auto) 0.4 Baso # (Auto) 0.0 Abs Immat Gran (auto) 0.03 Absolute Neuts (auto) 6.4 Absolute Nucleated RBC 0.000 Nucleated RBC % (auto) 0.0 Sodium Potassium Chloride Carbon Dioxide Anion Gap BUN Creatinine Estim Creat Clear Calc Estimated GFR POC Glucose 159 H 139 H Fasting Glucose Calcium 12/24/20 12/24/20 12/24/20 05:51 07:30 11:01 WBC RBC Hgb Hct MCV MCH MCHC RDW Plt Count MPV Immature Gran % (Auto) Neut % (Auto) Lymph % (Auto) Rankin % (Auto) Eos % (Auto) Baso % (Auto) Lymph # (Auto) Rankin # (Auto) Eos # (Auto) Baso # (Auto) Abs Immat Gran (auto) Absolute Neuts (auto) Absolute Nucleated RBC Nucleated RBC % (auto) Sodium 139 Potassium 4.1 Chloride 101 Carbon Dioxide 32 H Anion Gap 10 L BUN 13 Creatinine 0.66 Estim Creat Clear Calc 86.5 Estimated GFR > 60 POC Glucose 119 H 162 H Fasting Glucose 123 H Calcium 8.7 Discharge Plan Discharge Patient Disposition: Home Health Service Referrals: [facility] [Outside] (DISCHARGED HOME WITH [facility] HOME [facility]ARE FOR NURSING FOR DIAGNOSIS SIGHN SYMPTOM MANAGEMENT ,DEVELOPEMENT OF ACTION PLAN OF WHOM TO CALL FOR WHAT AND WHEN, AND MEDICATION RECNCILATION, AND NEW HOME PHYSICAL THEARPY.PATIENT WILL HAVE HER SURGICAL SITE DRESSING CHANGED BEFORE SHE IS DISCHARGED . PCP DR LEDEZMA NAME PATIENT TO CALL FOR POST HOSPITLAL DISCHARGE FOLLOW UP CALL ORTHOPEDIC SURGERONS FOLLOW UP PER DISCHARGE INSTRUCTIONS CONFIRMED WITH VENUS NURSE FROM [facility] THAT THEY JHOAN BE OUT TO PATIENT HOME TODAY SHE IS ON A QD MANAGED MEDICATION PROGRAM THROUGH THEM ) Maxim Duenas PA-C [Physician Textile [employer] Footwear Mechanic] - (01/05/21 1:45) Discharge Medications: New acetaminophen 325 mg Tablet 650 mg PO Q6H PRN (Reason: Pain, Mild (Pain Scale 1-3)) Qty: 240 RF: 0 aspirin 325 mg Tablet 325 mg PO BID 14 Days Qty: 28 RF: 0 celecoxib 200 mg Capsule 200 mg PO BID 14 Days Qty: 28 RF: 0 oxycodone 5 mg Tablet 5 mg PO Q4H PRN (Reason: Pain, Moderate (Pain Scale 4-6) 7 Days Qty: 42 RF: 0 docusate sodium 100 mg Capsule 100 mg PO BID 30 Days Qty: 60 RF: 0 Continued omeprazole 40 mg capsule,delayed release(DR/EC) 40 mg PO BID 30 Days Qty: 60 RF: 3 Advair HFA 230-21 mcg/actuation HFA aerosol inhaler 2 puff PO BID RF: 0 amlodipine 5 mg tablet 5 mg PO DAILY RF: 0 duloxetine 60 mg capsule,delayed release(DR/EC) 60 mg PO BID RF: 0 cholecalciferol (vitamin D3) 50 mcg (2,000 unit) tablet 50 mcg PO DAILY RF: 0 fluticasone propionate 50 mcg/actuation spray,suspension 1 spray intranasal BID RF: 0 losartan 100 mg tablet 100 mg PO DAILY RF: 0 gabapentin 800 mg tablet 800 mg PO TID RF: 0 cetirizine 10 mg tablet 10 mg PO DAILY RF: 0 metformin 500 mg tablet 500 mg PO DAILY RF: 0 buprenorphine-naloxone 2-0.5 mg film 0.5 film sublingual DAILY RF: 0 zolpidem 10 mg tablet 10 mg PO BEDTIME PRN (Reason: Insomnia) RF: 0 econazole 1 % cream 1 appl topical BEDTIME RF: 0 albuterol sulfate 90 mcg/actuation HFA aerosol inhaler 2 puff PO Q4H PRN (Reason: Shortness Of Breath) RF: 0 simvastatin 20 mg tablet 20 mg PO BEDTIME RF: 0 trazodone 50 mg tablet 50 mg PO BEDTIME RF: 0 (DME) lancets 33 gauge misc See Rx Instructions ea Not Applicable DAILY Qty: 100 RF: 0 atenolol 50 mg tablet 50 mg PO BEDTIME RF: 0 ferrous gluconate 240 mg (27 mg iron) tablet 240 mg PO Q OTHER DAY RF: 0 (DME) blood sugar diagnostic Strip See Rx Instructions ea Not Applicable DAILY Qty: 10 RF: 0 Discontinued meloxicam 15 mg tablet 15 mg PO DAILY RF: 0 acetaminophen 500 mg tablet 1,000 mg PO Q6H PRN (Reason: Pain) RF: 0 Discharge Orders: Discharge Order (Routine); Ordered 12/24/20 Ordered By: Maxim Duenas Diet: regular diet Activity on Discharge: Use cane or walker Stand Alone Forms: Patient Portal Discharge page Activity Restrictions/Additional Instructions: * Physical Therapy for ROM 0-120, quad strength, gait training . Use walker for ambulation * Limit stair climbing, No shower, No tub bath, No driving * Continue asa for * Keep Aquacel dressing clean, dry and intact. * Follow up with orthopedics in 2 weeks Care Plan Goals: Restore function of right knee Health Concerns: None Plan of Treatment: Physical Therapy Pain management DVT prophylaxis Discharge Date/Time: 12/24/20 14:41
[2020-12-24 13:24] VITALS: BP 112/50; PULSE 69; O2SAT 96
== END 2020-12-24 14:41 | disposition home health service (06) | DRG 467 ==
LOC: HO.SSSA 06:14 → HO.S3 11:08
PROVIDERS: Physician Assistant; Admitting Provider Orthopaedic Surgery; PCP Internal Medicine Geriatric Medicine; Visit Provider Orthopaedic Surgery
PROC: 0SPC0JZ Removal of Synthetic Substitute from Right Knee Joint, Open Approach (ICD-10-PCS; CPT 27487; principal; 2020-12-21 07:30)
DX: T84.84XA Pain due to internal orthopedic prosthetic devices, implants and grafts, initial encounter (principal); D62 Acute posthemorrhagic anemia; I10 Essential (primary) hypertension; F32.9 Major depressive disorder, single episode, unspecified; F41.9 Anxiety disorder, unspecified; E11.9 Type 2 diabetes mellitus without complications; Z20.822 Contact with and (suspected) exposure to COVID-19; Z87.891 Personal history of nicotine dependence; Z88.6 Allergy status to analgesic agent; Z79.51 Long term (current) use of inhaled steroids; Z79.899 Other long term (current) drug therapy
CPT/HCPCS: 36415; 73560; 80048; 80051; 82565; 82947; 84520; 85025; 86850; 86900; 87635; 87640; 87641; 88300; 88305; 88311; 97110; 97116; 97162; C1713; C1776; J0131; J0690; J1170; J1885; J2250; J2370

== ENCOUNTER → 2020-12-30 10:58 | Outpatient (BNVA) | payer OTHER, SELFPAY | PROVIDERS: Visit Provider Physician Assistant | DX: Z47.1 Aftercare following joint replacement surgery (principal); Z96.651 Presence of right artificial knee joint | CPT/HCPCS: 99212 ==

== ENCOUNTER → 2021-01-04 13:06 | Outpatient (BNVA) | payer OTHER, SELFPAY | PROVIDERS: Visit Provider Physician Assistant ==

== ENCOUNTER 2021-01-04 13:56 | Outpatient (REF) | payer OTHER, SELFPAY ==
--- NOTE | ~2021-01-04 | US_ITS ---
EXAMINATION: US VENOUS ULTRASOUND WITH DOPPLER LOWER EXTREMITY, RIGHT CLINICAL INFORMATION: Pain COMPARISON: Previous exam July 2020 TECHNIQUE: Ultrasound of the deep veins is performed from the hip to the calf with compression sonography and color and pulse Doppler assessment. Spectral analysis with color-flow imaging is performed. FINDINGS: There is normal venous compression and respiratory variation and augmented flow. The visualized common femoral vein, superficial femoral vein, profunda femoral vein, popliteal vein, and the trifurcation region shows no evidence of deep venous thrombosis. There is no significant popliteal fossa cyst. US/US venous duplex LE RT IMPRESSION: No DVT demonstrated in the right lower extremity.
== END 2021-01-04 13:57 | disposition home or self-care (01) ==
LOC: HO.US 13:56
PROVIDERS: PCP Nurse Practitioner Primary Care; Visit Provider Physician Assistant
DX: Z47.1 Aftercare following joint replacement surgery (principal); Z96.651 Presence of right artificial knee joint
CPT/HCPCS: 93971; 99212

== ENCOUNTER → 2021-01-06 13:44 | Outpatient (BNVA) | payer OTHER, SELFPAY | PROVIDERS: PCP Nurse Practitioner Primary Care; Visit Provider Physician Assistant | DX: Z13.89 Encounter for screening for other disorder (principal) | CPT/HCPCS: 99212 ==

== ENCOUNTER 2021-01-31 13:22 | Outpatient (REF) | payer OTHER, SELFPAY ==
--- NOTE | ~2021-01-31 | XR_ITS ---
EXAMINATION: XR THORACOLUMBAR SPINE CLINICAL INFORMATION: Pain COMPARISON: None TECHNIQUE: 3 views of the thoracic spine FINDINGS: There is mild curvature of the midthoracic spine to the right and lower thoracic spine to the left. Bone alignment is otherwise normal. No fracture or dislocation is seen. There is multilevel degenerative spondylosis from C4-C5 to T12-L1. There is a spinal stimulator with the top at the T7-T8 vertebral body level. Paraspinal soft tissues are unremarkable. XR/XR thoracic spine 2V IMPRESSION: Severe multilevel degenerative spondylosis. Spinal stimulator with tip mid thoracic spine.
== END 2021-01-31 13:23 | disposition home or self-care (01) ==
LOC: HO.XRAY 13:22
PROVIDERS: PCP Nurse Practitioner Primary Care; Visit Provider Anesthesiology
DX: G89.4 Chronic pain syndrome (principal); Z79.899 Other long term (current) drug therapy
CPT/HCPCS: 72070; 99212

== ENCOUNTER → 2021-02-03 12:16 | Outpatient (BNVA) | payer OTHER, SELFPAY | PROVIDERS: PCP Nurse Practitioner Primary Care; Visit Provider Orthopaedic Surgery | DX: Z47.1 Aftercare following joint replacement surgery (principal); Z96.659 Presence of unspecified artificial knee joint | CPT/HCPCS: 99212 ==

== ENCOUNTER → 2021-02-07 12:45 | Outpatient (BNVA) | payer OTHER, SELFPAY | PROVIDERS: PCP Nurse Practitioner Primary Care; Visit Provider Internal Medicine Gastroenterology | DX: R10.13 Epigastric pain (principal); K57.01 Diverticulitis of small intestine with perforation and abscess with bleeding; R14.0 Abdominal distension (gaseous); K21.9 Gastro-esophageal reflux disease without esophagitis; K59.09 Other constipation; R19.7 Diarrhea, unspecified; D12.2 Benign neoplasm of ascending colon; Z87.891 Personal history of nicotine dependence; Z79.899 Other long term (current) drug therapy | CPT/HCPCS: Q3014 ==

== ENCOUNTER → 2021-02-10 14:37 | Outpatient (BNVA) | payer OTHER, SELFPAY | PROVIDERS: PCP Nurse Practitioner Primary Care; Visit Provider Anesthesiology | DX: G89.4 Chronic pain syndrome (principal) | CPT/HCPCS: 99212 ==

== ENCOUNTER → 2021-03-10 12:18 | Outpatient (BNVA) | payer OTHER, SELFPAY | PROVIDERS: PCP Nurse Practitioner Primary Care; Visit Provider Orthopaedic Surgery | DX: Z96.659 Presence of unspecified artificial knee joint (principal) | CPT/HCPCS: 99212 ==

== ENCOUNTER 2021-03-28 11:08 | Outpatient (REF) | payer OTHER, SELFPAY ==
[2021-04-02 05:36] LABS: HPV 16 RNA NOT DETECTED (NOT DETECTED); HPV mRNA E6/E7 rflx Detected (Not Detected)
== END 2021-03-28 11:09 | disposition home or self-care (01) ==
LOC: HO.LAB 11:08
PROVIDERS: PCP Nurse Practitioner Primary Care; Visit Provider Obstetrics & Gynecology
DX: Z01.419 Encounter for gynecological examination (general) (routine) without abnormal findings (principal); F14.90 Cocaine use, unspecified, uncomplicated; F12.90 Cannabis use, unspecified, uncomplicated
CPT/HCPCS: 87624; 87625; 88142

== ENCOUNTER 2021-04-05 05:46 | Outpatient (REF) | payer OTHER, SELFPAY ==
--- NOTE | ~2021-04-05 | FL_ITS ---
EXAMINATION: XR FLUOROSCOPY WITH IMAGES CLINICAL INFORMATION: Spondylosis with myelopathy or radiculopathy. COMPARISON: None. TECHNIQUE: Fluoroscopy performed by Denise Moore NP. Fluoroscopy time: 0.8 minutes DAP: 8.30 Gycm2 Images: 5 FINDINGS: The needle place on either side of S1, L5 and right L4 pedicles with contrast opacifying the joint space. There is mild loss of L3-L4 disc height with moderate ventral spondylosis at L3-L4 and L4-L5 disc levels. No visible acute fracture, dislocation or lytic process seen. FL/FL guidance in treatment room IMPRESSION: Fluoroscopy was provided to Denise Moore for pain management.
== END 2021-04-05 05:47 | disposition home or self-care (01) ==
LOC: HO.RADIR 05:46
PROVIDERS: Visit Provider Anesthesiology
DX: M47.816 Spondylosis without myelopathy or radiculopathy, lumbar region (principal); G89.4 Chronic pain syndrome
CPT/HCPCS: 64493; 64494; Q9967

== ENCOUNTER → 2021-04-14 09:57 | Outpatient (BNVA) | payer OTHER, SELFPAY | PROVIDERS: Visit Provider Anesthesiology | DX: K59.09 Other constipation (principal); K57.10 Diverticulosis of small intestine without perforation or abscess without bleeding; K21.9 Gastro-esophageal reflux disease without esophagitis; D64.9 Anemia, unspecified; R10.13 Epigastric pain; R14.0 Abdominal distension (gaseous); R68.81 Early satiety; Z12.11 Encounter for screening for malignant neoplasm of colon; G89.4 Chronic pain syndrome; M51.36 Other intervertebral disc degeneration, lumbar region; M46.1 Sacroiliitis, not elsewhere classified; M53.3 Sacrococcygeal disorders, not elsewhere classified; M47.816 Spondylosis without myelopathy or radiculopathy, lumbar region | CPT/HCPCS: 99212; Q3014 ==

== ENCOUNTER 2021-04-19 10:11 | Outpatient (REF) | payer OTHER, SELFPAY ==
[2021-04-19 11:40] LABS: Hematocrit 35.7 % (37-47); Hemoglobin 11.6 g/dl (12.0-16.0); Mean Corpuscular HGB Conc 32.5 g/dl (31.0-35.0); Mean Corpuscular Hemoglobin 29.9 pg (27.0-33.0); Mean Platelet Volume 10.2 fL (9.4-12.3); Platelet Count 334 X10*3/uL (160-400); Red Blood Count 3.88 X10*6/uL (4.20-5.50); Red Cell Distribution Width 12.5 % (11.0-16.0); White Blood Count 8.4 X10*3/uL (4.8-10.8)
[2021-04-19 12:20] LABS: Ferritin 28 ng/mL (10-250); Vitamin D 25-OH Total 39.7 ng/mL (>30)
[2021-04-19 12:47] LABS: Folate 9.1 ng/mL (> or = 4.0); Vitamin B12 200 pg/mL (200-900)
== END 2021-04-19 10:12 | disposition home or self-care (01) ==
LOC: HO.LAB 10:11
PROVIDERS: PCP Nurse Practitioner Primary Care; Visit Provider Internal Medicine Gastroenterology
DX: R87.810 Cervical high risk human papillomavirus (HPV) DNA test positive (principal); D64.9 Anemia, unspecified
CPT/HCPCS: 36415; 57456; 82306; 82607; 82728; 82746; 85027; 88305; 88341; 88342; 88360

== ENCOUNTER 2021-04-27 08:19 | Outpatient (REF) | payer OTHER, SELFPAY ==
--- NOTE | 2021-04-27 08:22 | EMG_ITS ---
This is a 60-year-old woman with a 2-year history of bilateral upper extremity pain, numbness, and tingling with the right being slightly worse than the left. She has a history of hypertension, cholesterol, and diabetes. MEDICATIONS: List of medications not available. PHYSICAL EXAMINATION: On examination, she is alert and oriented with normal intellectual functions. Cranial nerves II through XII are normal. Muscle tone and strength are normal in all 4 extremities. No Tinel or Phalen sign. IMPRESSION: Rule out carpal tunnel syndrome. Nerve conduction EMG study: Normal electrodiagnostic study of both upper extremities with no evidence of nerve entrapment or carpal tunnel syndrome. Normal EMG of the right C5-T1 innervated muscles. MD DORITA Box/DEANNA / [id number]
== END 2021-04-27 08:20 | disposition home or self-care (01) ==
LOC: HO.NEURO 08:19
PROVIDERS: PCP Nurse Practitioner Primary Care; Visit Provider Orthopaedic Surgery
DX: R20.0 Anesthesia of skin (principal); R20.2 Paresthesia of skin
CPT/HCPCS: 95885; 95913

== ENCOUNTER 2021-06-07 14:10 | Outpatient (REF) | payer OTHER, SELFPAY | END 2021-06-07 14:11 | disposition home or self-care (01) | LOC: HO.LAB 14:10 | PROVIDERS: Visit Provider Obstetrics & Gynecology | DX: R87.810 Cervical high risk human papillomavirus (HPV) DNA test positive (principal) | CPT/HCPCS: 57500; 88305 ==

== ENCOUNTER 2021-06-21 06:22 | Outpatient (REF) | payer OTHER, SELFPAY ==
--- NOTE | ~2021-06-21 | FL_ITS ---
EXAMINATION: XR FLUOROSCOPY WITH IMAGES CLINICAL INFORMATION: M46.1 - Sacroiliitis, not elsewhere classified COMPARISON: None. TECHNIQUE: Fluoroscopy performed by Dr. Luis Enrique Rees. Fluoroscopy time: 0.1 minutes DAP: 1.23 Gycm2 Images: 1 FINDINGS: There is spinal needle overlying inferior right SI joint. There is contrast adjacent soft tissues along with some intraarticular contrast. FL/FL guidance in treatment room IMPRESSION: Fluoroscopy for pain management procedure.
== END 2021-06-21 06:23 | disposition home or self-care (01) ==
LOC: HO.RADIR 06:22
PROVIDERS: Visit Provider Anesthesiology
DX: M46.1 Sacroiliitis, not elsewhere classified (principal); M53.3 Sacrococcygeal disorders, not elsewhere classified; G89.4 Chronic pain syndrome; M51.36 Other intervertebral disc degeneration, lumbar region; M47.816 Spondylosis without myelopathy or radiculopathy, lumbar region
CPT/HCPCS: 27096; J3300; Q9967

== ENCOUNTER → 2021-06-27 11:01 | Outpatient (BNVA) | payer OTHER, SELFPAY | PROVIDERS: Visit Provider Orthopaedic Surgery | DX: M17.11 Unilateral primary osteoarthritis, right knee (principal); M53.3 Sacrococcygeal disorders, not elsewhere classified; G89.4 Chronic pain syndrome; E11.9 Type 2 diabetes mellitus without complications; I10 Essential (primary) hypertension; J45.909 Unspecified asthma, uncomplicated; F14.10 Cocaine abuse, uncomplicated; F12.20 Cannabis dependence, uncomplicated; Z87.891 Personal history of nicotine dependence; Z96.651 Presence of right artificial knee joint; Z88.6 Allergy status to analgesic agent | CPT/HCPCS: 99212 ==

== ENCOUNTER → 2021-07-05 13:30 | Outpatient (BNVA) | payer OTHER, SELFPAY | PROVIDERS: Visit Provider Obstetrics & Gynecology | DX: B97.7 Papillomavirus as the cause of diseases classified elsewhere (principal) | CPT/HCPCS: 99212 ==

== ENCOUNTER → 2021-07-27 09:20 | Outpatient (BNVA) | payer OTHER, SELFPAY | PROVIDERS: PCP Nurse Practitioner Primary Care; Visit Provider Anesthesiology | DX: M51.36 Other intervertebral disc degeneration, lumbar region (principal); M46.1 Sacroiliitis, not elsewhere classified; M53.3 Sacrococcygeal disorders, not elsewhere classified; M47.816 Spondylosis without myelopathy or radiculopathy, lumbar region; G89.4 Chronic pain syndrome | CPT/HCPCS: 99212 ==

== ENCOUNTER → 2021-08-11 08:58 | Outpatient (BNVA) | payer OTHER, SELFPAY | PROVIDERS: PCP Nurse Practitioner Primary Care; Visit Provider Anesthesiology | DX: M47.816 Spondylosis without myelopathy or radiculopathy, lumbar region (principal); M53.3 Sacrococcygeal disorders, not elsewhere classified; M51.36 Other intervertebral disc degeneration, lumbar region; M46.1 Sacroiliitis, not elsewhere classified; G89.4 Chronic pain syndrome | CPT/HCPCS: 99212 ==

== ENCOUNTER 2021-09-09 15:37 | Outpatient (REF) | payer OTHER, SELFPAY ==
--- NOTE | ~2021-09-09 | MR_ITS ---
EXAMINATION: MR LUMBAR SPINE WITHOUT AND WITH CONTRAST CLINICAL INFORMATION: Right lower extremity pain. COMPARISON: Lumbar spine MRI 05/17/2018. TECHNIQUE: Multiplanar MR imaging of the lumbar spine was performed without and with contrast. Total of 7 mL Gadavist was utilized for this examination. FINDINGS: There is slight grade 1 anterolisthesis of L2 on L3, L3 on L4, and L4 on L5 that appears to be related to facet degenerative changes at these levels. Vertebral heights are preserved. There is bone marrow edema involving articular pillars of both L4-L5 facet joints. There is slight loss of intervertebral disc height and T2 signal intensity at multiple levels related to disc degeneration. The tip of the conus medullaris is located at L1. No mass effect on the conus. Visualized distal cord signal intensity is normal. There is a spinal stimulator in place and the electrode wires anterior the canal at the L1-L2 interlaminar space. At L1-L2 there is a slightly bulging disc. No canal stenosis. No mass effect on the traversing or foraminal nerve roots. At L2-L3 there is a pseudodisc bulge. Mild canal stenosis. No mass effect on the traversing or foraminal nerve roots. At L3-L4 there is a pseudodisc bulge. Mild canal stenosis. Mild mass effect on the foraminal/extraforaminal segment of the left L3 nerve root. At L4-L5 there is a pseudodisc bulge. Bilateral facet degenerative change. Mild canal stenosis. There is subtle abutment of both traversing L5 nerve roots. No foraminal nerve root compression. At L5-S1 the annular contour is normal. No canal or neuroforaminal compromise. Limited visualization of the retroperitoneal anatomy reveals no abnormal finding. Psoas and paraspinal muscle groups are symmetric. MR/MR lumbar spine wo/w con IMPRESSION: There is multilevel degenerative spondylosis of the lumbar spine with slight grade 1 anterolisthesis at multiple levels. There is mild canal stenosis at L2-L3, L3-L4, and L4-L5. A bulging disc in conjunction with facet degenerative change at L3-L4 causing mild mass effect on the foraminal/extraforaminal segment of left L3 nerve root. Otherwise no substantial mass effect on the traversing or foraminal nerve roots elsewhere within the lumbar spine. Of note there is bone marrow edema involving articular pillars of both L4-L5 facet joint presumably representing aseptic inflammation in the setting of facet arthrosis.
[2021-09-09 17:08] LABS: Blood Urea Nitrogen 18 mg/dL (9-16); Estimated Glomerular Filt Rate > 60
== END 2021-09-09 15:38 | disposition home or self-care (01) ==
LOC: HO.MRI 15:37
PROVIDERS: PCP Internal Medicine; Visit Provider Anesthesiology
DX: M51.36 Other intervertebral disc degeneration, lumbar region (principal); M47.816 Spondylosis without myelopathy or radiculopathy, lumbar region; G89.4 Chronic pain syndrome
CPT/HCPCS: 36415; 72158; 82565; 84520; A9585

== ENCOUNTER → 2021-09-19 14:11 | Outpatient (BNVA) | payer OTHER, SELFPAY | PROVIDERS: PCP Internal Medicine; Visit Provider Anesthesiology | DX: M53.3 Sacrococcygeal disorders, not elsewhere classified (principal); M46.1 Sacroiliitis, not elsewhere classified; M51.36 Other intervertebral disc degeneration, lumbar region; M47.816 Spondylosis without myelopathy or radiculopathy, lumbar region | CPT/HCPCS: Q3014 ==

== ENCOUNTER → 2021-10-03 10:39 | Outpatient (BNVA) | payer OTHER, SELFPAY | PROVIDERS: Referring Provider Internal Medicine; Visit Provider Internal Medicine Gastroenterology | DX: D64.9 Anemia, unspecified (principal); K59.04 Chronic idiopathic constipation; K21.9 Gastro-esophageal reflux disease without esophagitis; K57.10 Diverticulosis of small intestine without perforation or abscess without bleeding; R10.13 Epigastric pain; R14.0 Abdominal distension (gaseous); R68.81 Early satiety; F14.90 Cocaine use, unspecified, uncomplicated; F12.90 Cannabis use, unspecified, uncomplicated; Z88.8 Allergy status to other drugs, medicaments and biological substances; Z79.84 Long term (current) use of oral hypoglycemic drugs; Z79.899 Other long term (current) drug therapy | CPT/HCPCS: 99212 ==

== ENCOUNTER 2021-10-25 06:46 | Outpatient (REF) | payer OTHER, SELFPAY ==
--- NOTE | ~2021-10-25 | FL_ITS ---
EXAMINATION: XR FLUOROSCOPY WITH IMAGES CLINICAL INFORMATION: M47.816 - Spondylosis without myelopathy or radiculopathy COMPARISON: MR lumbar spine 09/09/2021 TECHNIQUE: Fluoroscopy performed by Dr. Luis Enrique Rees. Fluoroscopy time: 0.5 minutes DAP: 5.02 Gycm2 Images: 4 FINDINGS: There are spinal needles overlying the bilateral outer L4 and L5 neural foramen. There is contrast seen in the respective nerve sheaths. Some early transforaminal epidural extension is suggested. No visible vascular communication. There are variable degenerative disc changes with associated multilevel vertebral body spurring. FL/FL guidance in treatment room IMPRESSION: Fluoroscopy for pain management procedures.
== END 2021-10-25 06:47 | disposition home or self-care (01) ==
LOC: HO.RADIR 06:46
PROVIDERS: Visit Provider Anesthesiology
DX: M53.3 Sacrococcygeal disorders, not elsewhere classified (principal); M46.1 Sacroiliitis, not elsewhere classified; M51.36 Other intervertebral disc degeneration, lumbar region; M47.816 Spondylosis without myelopathy or radiculopathy, lumbar region
CPT/HCPCS: 64493; 64494; J3300; Q9967

== ENCOUNTER 2021-11-11 11:00 | Outpatient (RCR) | payer OTHER, SELFPAY | END 2021-11-24 14:41 | disposition home or self-care (01) | LOC: HO.PT 11:00 | PROVIDERS: PCP Internal Medicine; Visit Provider Internal Medicine | DX: M72.2 Plantar fascial fibromatosis (principal) | CPT/HCPCS: 97110; 97150; 97162 ==

== ENCOUNTER → 2021-11-30 15:15 | Outpatient (BNVA) | payer OTHER, SELFPAY | PROVIDERS: PCP Internal Medicine; Visit Provider Anesthesiology | DX: M53.3 Sacrococcygeal disorders, not elsewhere classified (principal); M46.1 Sacroiliitis, not elsewhere classified; M51.36 Other intervertebral disc degeneration, lumbar region; M47.816 Spondylosis without myelopathy or radiculopathy, lumbar region; M54.16 Radiculopathy, lumbar region | CPT/HCPCS: 99212 ==

== ENCOUNTER → 2022-01-02 12:53 | Outpatient (BNVA) | payer OTHER, SELFPAY | PROVIDERS: PCP Internal Medicine; Visit Provider Obstetrics & Gynecology | DX: Z11.51 Encounter for screening for human papillomavirus (HPV) (principal); B97.7 Papillomavirus as the cause of diseases classified elsewhere | CPT/HCPCS: 57454; 99212 ==

== ENCOUNTER 2022-01-02 18:06 | Outpatient (REF) | payer OTHER, SELFPAY ==
[2022-01-07 02:22] LABS: HPV mRNA E6/E7 rflx Detected (Not Detected)
[2022-01-07 02:26] LABS: HPV 16 RNA NOT DETECTED (NOT DETECTED)
== END 2022-01-02 18:07 | disposition home or self-care (01) ==
LOC: HO.LNP 18:06
PROVIDERS: Visit Provider Obstetrics & Gynecology
DX: A63.0 Anogenital (venereal) warts (principal)
CPT/HCPCS: 87624; 87625; 88142; 88305; 88342; 88360

== ENCOUNTER 2022-01-03 06:11 | Outpatient (REF) | payer OTHER, SELFPAY ==
--- NOTE | ~2022-01-03 | FL_ITS ---
EXAMINATION: XR FLUOROSCOPY WITH IMAGES CLINICAL INFORMATION: Lumbar radiculopathy. COMPARISON: 10/25/2021 TECHNIQUE: Fluoroscopy performed by Dr. Luis Enrique Rees. Fluoroscopy time: 0.4 minutes DAP: 4.09 Gycm2 Images: 2 FINDINGS: Spinal needle is seen overlying the right L4-L5 facet with contrast seen injected. Nerve stimulator wires are seen traversing superiorly from the power pack. FL/FL guidance in treatment room IMPRESSION: Pain injection as described.
== END 2022-01-03 06:12 | disposition home or self-care (01) ==
LOC: HO.RADIR 06:11
PROVIDERS: Visit Provider Anesthesiology
DX: M54.16 Radiculopathy, lumbar region (principal); M53.3 Sacrococcygeal disorders, not elsewhere classified; M46.1 Sacroiliitis, not elsewhere classified; M19.042 Primary osteoarthritis, left hand; M19.041 Primary osteoarthritis, right hand; I10 Essential (primary) hypertension; E11.9 Type 2 diabetes mellitus without complications; F12.20 Cannabis dependence, uncomplicated; F14.20 Cocaine dependence, uncomplicated; Z88.8 Allergy status to other drugs, medicaments and biological substances
CPT/HCPCS: 64483; 64484; J3300; Q9967

== ENCOUNTER 2022-01-05 12:58 | Outpatient (REF) | payer OTHER, SELFPAY ==
[2022-01-05 14:26] LABS: MANUAL DIFF FLAG NO
[2022-01-05 14:57] LABS: Basophils Percent Auto 0.1 % (0-2); Eosinophils Percent Auto 0.1 % (0-4); Hematocrit 37.3 % (37.0-47.0); Hemoglobin 12.1 g/dl (12.0-16.0); Imm Gran Abs Auto 0.08 X10*3/uL (0.00-0.03); Imm Gran Pct Auto 0.5 % (0.0-0.4); Lymphocytes Absolute Auto 3.8 X10*3/uL (1.2-4.9); Lymphocytes Percent Auto 24.3 % (20-40); Mean Corpuscular HGB Conc 32.4 g/dl (31.0-35.0); Mean Corpuscular Hemoglobin 29.7 pg (27.0-33.0); Mean Corpuscular Volume 91.6 fL (80.0-98.0); Monocytes Absolute Auto 1.1 X10*3/uL (0.1-1.2); Neutrophils Absolute Auto 10.7 x10*3/uL (2.0-8.3); Platelet Count 347 X10*3/uL (160-400); Red Blood Count 4.07 X10*6/uL (4.20-5.50); Red Cell Distribution Width 12.3 % (11.0-16.0); White Blood Count 15.7 X10*3/uL (4.8-10.8)
[2022-01-05 15:41] LABS: Ferritin 35 ng/mL (10-250)
[2022-01-05 15:45] LABS: Vitamin B12 249 pg/mL (200-900)
[2022-01-07 13:51] LABS: Immunoglobulin A 385 mg/dL (70-320)
[2022-01-07 14:17] LABS: Transglutaminase IgA <1.0 U/mL
[2022-01-11 10:22] LABS: Methylmalonic Acid 235 nmol/L (87-318)
== END 2022-01-05 12:59 | disposition home or self-care (01) ==
LOC: HO.LAB 12:58
PROVIDERS: PCP Internal Medicine; Referring Provider Internal Medicine; Visit Provider Internal Medicine Gastroenterology
DX: D64.9 Anemia, unspecified (principal); R10.13 Epigastric pain; K59.09 Other constipation; K57.10 Diverticulosis of small intestine without perforation or abscess without bleeding; R14.0 Abdominal distension (gaseous); R68.81 Early satiety; K21.9 Gastro-esophageal reflux disease without esophagitis
CPT/HCPCS: 36415; 82607; 82728; 82784; 83921; 85025; 86364; 99212

== ENCOUNTER → 2022-02-02 10:00 | Outpatient (BNVA) | payer OTHER, SELFPAY | PROVIDERS: PCP Internal Medicine; Visit Provider Obstetrics & Gynecology | DX: N87.0 Mild cervical dysplasia (principal); Z98.890 Other specified postprocedural states | CPT/HCPCS: 99212 ==

== ENCOUNTER → 2022-02-10 15:12 | Outpatient (BNVA) | payer OTHER, SELFPAY | PROVIDERS: PCP Internal Medicine; Visit Provider Nurse Practitioner Family | DX: M54.16 Radiculopathy, lumbar region (principal); M53.3 Sacrococcygeal disorders, not elsewhere classified; M46.1 Sacroiliitis, not elsewhere classified; M51.36 Other intervertebral disc degeneration, lumbar region; M47.816 Spondylosis without myelopathy or radiculopathy, lumbar region; G89.4 Chronic pain syndrome | CPT/HCPCS: Q3014 ==

== ENCOUNTER 2022-04-11 06:01 | Outpatient (REF) | payer OTHER, SELFPAY ==
--- NOTE | ~2022-04-11 | FL_ITS ---
EXAMINATION: XR FLUOROSCOPY WITH IMAGES CLINICAL INFORMATION: G89.4 - chronic pain syndrome COMPARISON: 01/03/2022 TECHNIQUE: Fluoroscopy performed by Dr. Luis Enrique Rees. Fluoroscopy time: 0.39) minutes DAP: 2.58 Gycm2 Images: 2 FINDINGS: AP and lateral views of the lumbar spine demonstrate instrumentation projecting over L4. Partially visualized wires are present posteriorly. FL/FL guidance in treatment room IMPRESSION: Fluoroscopic assistance for procedure performance; please see procedure note for full details.
== END 2022-04-11 06:02 | disposition home or self-care (01) ==
LOC: HO.RADIR 06:01
PROVIDERS: Visit Provider Anesthesiology
DX: M47.816 Spondylosis without myelopathy or radiculopathy, lumbar region (principal); M54.16 Radiculopathy, lumbar region; M53.3 Sacrococcygeal disorders, not elsewhere classified; M46.1 Sacroiliitis, not elsewhere classified; M51.36 Other intervertebral disc degeneration, lumbar region; G89.4 Chronic pain syndrome
CPT/HCPCS: 62323; J1170

== ENCOUNTER → 2022-04-19 10:21 | Outpatient (BNVA) | payer OTHER, SELFPAY | PROVIDERS: PCP Nurse Practitioner Family; Visit Provider Nurse Practitioner Family | DX: M54.16 Radiculopathy, lumbar region (principal); M53.3 Sacrococcygeal disorders, not elsewhere classified; M46.1 Sacroiliitis, not elsewhere classified; M51.36 Other intervertebral disc degeneration, lumbar region; M47.816 Spondylosis without myelopathy or radiculopathy, lumbar region; G89.4 Chronic pain syndrome | CPT/HCPCS: 99212 ==

== ENCOUNTER 2022-05-18 12:00 | Outpatient (REF) | payer OTHER, SELFPAY | END 2022-05-18 12:01 | disposition home or self-care (01) | LOC: HO.LAB 12:00 | PROVIDERS: Visit Provider Internal Medicine Gastroenterology | DX: K59.09 Other constipation (principal); R10.13 Epigastric pain; K57.10 Diverticulosis of small intestine without perforation or abscess without bleeding; R14.0 Abdominal distension (gaseous); K21.9 Gastro-esophageal reflux disease without esophagitis; R68.81 Early satiety | CPT/HCPCS: 99212 ==

== ENCOUNTER → 2022-05-22 10:56 | Outpatient (BNVA) | payer OTHER, SELFPAY | PROVIDERS: PCP Nurse Practitioner Family; Visit Provider Student in an Organized Health Care Education/Training Program | DX: M19.041 Primary osteoarthritis, right hand (principal); M19.042 Primary osteoarthritis, left hand; Z79.899 Other long term (current) drug therapy | CPT/HCPCS: 99202; 99212 ==

== ENCOUNTER 2022-05-23 11:15 | Outpatient (REF) | payer OTHER, SELFPAY ==
--- NOTE | ~2022-05-23 | XR_ITS ---
EXAMINATION: XR HAND/WRIST, RIGHT XR HAND/WRIST, LEFT CLINICAL INFORMATION: Primary osteoarthritis. Pain. COMPARISON: None TECHNIQUE: 4 views each hand/wrist. FINDINGS: LEFT HAND/WRIST: There is severe loss of PIP and DIP joints of left hand with periarticular spurring and a seagull deformity of DIP joints second through fifth digits with mild flexion deformity. The MCP joint space is preserved. No visible fracture seen. Small bone fragment seen and additional left-sided process likely calcific tendinitis. RIGHT HAND/WRIST: There is loss of PIP and DIP joint space of all digits with fusion of DIP joint second digit with a solitary screw. The MCP joint space is preserved. There is no visible fracture or dislocation. No bony erosive changes. There are flexion deformities of DIP joints third through fifth digit. There is moderate dorsal wrist soft tissue swelling. XR/XR hand wrist RT IMPRESSION: Severe degenerative osteoarthritic changes PIP and DIP joints with flexion deformities of left hand involving 2nd through 4th digits. No acute fracture. Severe degenerative osteoarthritic changes right hand involving the PIP and DIP joints and flexion deformities of DIP joints 3rd through 5th digits. There is fusion of DIP joint second digit with a solitary screw.
--- NOTE | ~2022-05-23 | XR_ITS ---
EXAMINATION: XR HAND/WRIST, RIGHT XR HAND/WRIST, LEFT CLINICAL INFORMATION: Primary osteoarthritis. Pain. COMPARISON: None TECHNIQUE: 4 views each hand/wrist. FINDINGS: LEFT HAND/WRIST: There is severe loss of PIP and DIP joints of left hand with periarticular spurring and a seagull deformity of DIP joints second through fifth digits with mild flexion deformity. The MCP joint space is preserved. No visible fracture seen. Small bone fragment seen and additional left-sided process likely calcific tendinitis. RIGHT HAND/WRIST: There is loss of PIP and DIP joint space of all digits with fusion of DIP joint second digit with a solitary screw. The MCP joint space is preserved. There is no visible fracture or dislocation. No bony erosive changes. There are flexion deformities of DIP joints third through fifth digit. There is moderate dorsal wrist soft tissue swelling. XR/XR hand wrist LT IMPRESSION: Severe degenerative osteoarthritic changes PIP and DIP joints with flexion deformities of left hand involving 2nd through 4th digits. No acute fracture. Severe degenerative osteoarthritic changes right hand involving the PIP and DIP joints and flexion deformities of DIP joints 3rd through 5th digits. There is fusion of DIP joint second digit with a solitary screw.
[2022-05-23 11:33] LABS: MANUAL DIFF FLAG NO
[2022-05-23 11:46] LABS: Basophils Percent Auto 0.4 % (0-2); Eosinophils Absolute Auto 0.3 X10*3/uL (0.0-0.4); Eosinophils Percent Auto 3.5 % (0-4); Hematocrit 36.7 % (37.0-47.0); Hemoglobin 11.9 g/dl (12.0-16.0); Imm Gran Abs Auto 0.02 X10*3/uL (0.00-0.03); Imm Gran Pct Auto 0.3 % (0.0-0.4); Lymphocytes Absolute Auto 2.9 X10*3/uL (1.2-4.9); Lymphocytes Percent Auto 40.9 % (20-40); Mean Corpuscular HGB Conc 32.4 g/dl (31.0-35.0); Mean Corpuscular Hemoglobin 29.8 pg (27.0-33.0); Mean Corpuscular Volume 91.8 fL (80.0-98.0); Mean Platelet Volume 10.7 fL (9.4-12.3); Monocytes Absolute Auto 0.6 X10*3/uL (0.1-1.2); Neutrophils Absolute Auto 3.3 x10*3/uL (2.0-8.3); Neutrophils Percent Auto 45.9 % (45-73); Platelet Count 305 X10*3/uL (160-400); Red Cell Distribution Width 11.9 % (11.0-16.0); White Blood Count 7.1 X10*3/uL (4.8-10.8)
[2022-05-23 12:17] LABS: Alanine Aminotransferase 9 U/L (0-31); Albumin Level 4.1 g/dL (3.5-5.0); Alkaline Phosphatase 75 U/L (39-117); Anion Gap 13 (12-20); Aspartate Amino Transferase 15 U/L (5-31); Bilirubin Total 0.2 mg/dL (0.0-1.0); Blood Urea Nitrogen 11 mg/dL (9-16); C Reactive Protein 0.29 mg/dL (< or = 0.50); Calcium 8.7 mg/dL (8.4-10.2); Carbon Dioxide 30 mmol/L (22-29); Chloride 105 mmol/L (96-108); Estimated Glomerular Filt Rate > 60; Glucose Random 118 mg/dL (60-115); Lipase 11 U/L (8-78); Potassium 4.5 mmol/L (3.3-5.1); Sodium 143 mmol/L (135-145); Total Protein 6.7 g/dL (6.5-8.0)
[2022-05-23 12:37] LABS: Ferritin 27 ng/mL (10-250)
== END 2022-05-23 11:16 | disposition home or self-care (01) ==
LOC: HO.XRAY 11:15
PROVIDERS: Internal Medicine Gastroenterology; PCP Internal Medicine; Visit Provider Student in an Organized Health Care Education/Training Program
DX: M19.042 Primary osteoarthritis, left hand (principal); M19.041 Primary osteoarthritis, right hand; R10.13 Epigastric pain; D64.9 Anemia, unspecified
CPT/HCPCS: 36415; 73110; 73130; 80053; 82728; 83690; 85025; 86140

== ENCOUNTER → 2022-06-14 12:41 | Outpatient (BNVA) | payer OTHER, SELFPAY | PROVIDERS: PCP Internal Medicine; Visit Provider Orthopaedic Surgery | DX: M19.041 Primary osteoarthritis, right hand (principal); M19.042 Primary osteoarthritis, left hand; R20.0 Anesthesia of skin; R20.2 Paresthesia of skin | CPT/HCPCS: 99212 ==

== ENCOUNTER → 2022-06-20 11:25 | Outpatient (BNVA) | payer OTHER, SELFPAY | PROVIDERS: PCP Internal Medicine; Visit Provider Student in an Organized Health Care Education/Training Program | DX: M19.041 Primary osteoarthritis, right hand (principal); M19.042 Primary osteoarthritis, left hand | CPT/HCPCS: 99212 ==

== ENCOUNTER 2022-06-21 14:19 | Outpatient (REF) | payer OTHER, SELFPAY ==
--- NOTE | ~2022-06-21 | MM_ITS ---
EXAMINATION: MM SCREENING DIGITAL BREAST TOMOSYNTHESIS, BILATERAL CLINICAL INFORMATION: Screening. Asymptomatic. The lifetime risk of breast cancer based on the Tyrer-Cuzick Model is 6%. COMPARISON: Mammography: 06/26/2019, 05/20/2018, 10/17/2016 TECHNIQUE: Digital breast tomosynthesis is performed in both the craniocaudal and mediolateral oblique views along with computer-aided detection (CAD). Synthesized 2D images are generated from the tomosynthesis. FINDINGS: There are scattered areas of fibroglandular density (ACR BI-RADS breast composition Category b). There are no significant masses, abnormal calcifications, or other abnormalities. Parenchymal pattern is similar to prior studies. The axilla and skin contours are unremarkable. No significant changes. MM/MM tomosynthesis screening BI IMPRESSION: No mammographic evidence of malignancy. ASSESSMENT: BI-RADS 1: Negative RECOMMENDATION: Routine annual mammography screening. This patient's information was entered into a reminder system with a target due date for their next mammogram.
== END 2022-06-21 14:20 | disposition home or self-care (01) ==
LOC: HO.MAMMO 14:19
PROVIDERS: PCP Internal Medicine; Visit Provider Internal Medicine
DX: Z12.31 Encounter for screening mammogram for malignant neoplasm of breast (principal)
CPT/HCPCS: 77063; 77067

== ENCOUNTER 2022-06-29 10:21 | Day surgery (SDC) | payer OTHER, SELFPAY ==
[2022-06-26 15:51] VITALS: BMI 26.9
[2022-06-29] VITALS (7 sets, daily range): BP systolic 108–161; BP diastolic 53–73; PULSE 50–56; RESP 15–18; TEMP 36.2–36.7; O2SAT 96–98; BMI 27.6
--- NOTE | ~2022-06-29 | FL_ITS ---
EXAMINATION: XR FLUOROSCOPY WITH IMAGES CLINICAL INFORMATION: Intrathecal drug delivery implant COMPARISON: Fluoroscopic spot views lumbar spine 04/11/2022 TECHNIQUE: Fluoroscopy performed by Dr. Luis Enrique Rees. Fluoroscopy time: 0.8 minutes. Cumulative Dose: 15.5 mGy. DAP: 3.48 Gy-cm2. Images: 3. FINDINGS: There are 2 spinal stimulator electrodes again seen ascending the posterior spinal canal. The electrode tips are at level of mid thoracic spine, approximately level T7. There is no visible kinking or defect of the leads. There is also a fine catheter or guidewire also seen within the spinal canal to the left of the electrodes with tip approximately level T6-T7. There are multilevel degenerative changes thoracic spine with bridging osteophytes. FL/FL guidance in OR IMPRESSION: Fluoroscopy for pain management procedure.
--- NOTE | 2022-06-29 10:37 | P.HPSUR_ITS ---
Pre-Procedural Eval Section A Date of Service: 06/29/22 The patient is an INPATIENT: No Changes since office visit: Yes Patient answered all questions The History & Physical has been completed within 30 days and I have reviewed it.: No Section B Chief Complaint: Chronic pain syndrome Details of Present Illness: as above Relevant Family History (Specify if Yes): No Relevant Social History: None Present Medications: see Short Stay Collaborative assessment Medical History: No relevant PMH History of Previous Operations: Relevant previous surgery/procedure and date(s) Allergies: Allergies Allergy/AdvReac Type Severity Reaction Status Date / Time ibuprofen [IBUPROFEN] Allergy Mild STOMACH Verified 05/22/22 11:07 PAIN Review of Systems Sugical H&P ROS: Negative: Constitution, Cardiovascular, Respiratory, Neurological, Psychiatric, Hem-Onc, Allergic/Immunologic, Gastrointestinal, Genitourinary, Musculoskeletal, Integumentary, Endocrine and Eyes/Ears/No se/Throat Exam Surgical H&P Exam: Normal: HEENT, Normal: Heart, Normal: Lungs, Normal: Extremities, Normal: Abdomen, Normal: Skin and Normal: Neurological Plan Diagnosis/Plan: Unchanged I have reviewed the history and physical and performed a pertinent physical examination on my patient. No changes have occurred unless specified.
--- NOTE | 2022-06-29 11:04 | P.CONAN_ITS ---
Documented by User: Paolo Villa MD 06/29/22 11:18 HPI - Anesthesia Eval Consult details Narrative: 61 F for ITP placement PMFSH Past Medical History Medical History Acute blood loss anemia Asthma-COPD overlap syndrome Chronic pain syndrome Diabetes Disc degeneration, lumbar MENDENHALL (dyspnea on exertion) GERD (gastroesophageal reflux disease) HPV test positive Hx of carpal tunnel syndrome Hypertension Loose right total knee arthroplasty Lumbar back pain with radiculopathy affecting right lower extremity Osteoarthritis of right knee Overflow stress urinary incontinence in female Presence of dental bridge Primary osteoarthritis of hands, bilateral Pulmonary nodules Sacroiliac joint dysfunction of right side Sacroiliitis Sleep apnea Urge incontinence Family History Family History Mother Diabetes Arthritis Brother Cancer Surgical History Surgical History H/O knee surgery History of arthroplasty of right knee History of carpal tunnel release of both wrists History of endometrial ablation History of esophagogastroduodenoscopy (EGD) History of orthopedic surgery History of pubovaginal sling Hx of section Hx of colonoscopy Previous back surgery Social History Social History Household Members: None Housing: Apartment Are you a primary long term care phlebotomist to a significant other at home: No Do you presently have visiting nurse or other home services: Yes ([employer]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) Alcohol intake: former Year quit: 2017 Patient Tobacco Use Status: Former Tobacco user Quit Date: a year ago Tobacco use type: Cigarette Cigarettes Per Day: 30 Years Smoked: 2015 Smoked in Last 30 Days: No Use of substances other than those prescribed or required for medical reasons: Yes Substance Use Type: Crack/Cocaine and Marijuana Are you DNR?: No Advance Directives: No Advance Directives Information Provided: Yes Advance Directives on File: No service: No Current occupational status: disabled Meds Allergies Allergy/AdvReac Type Severity Reaction Status Date / Time ibuprofen [IBUPROFEN] Allergy Mild STOMACH Verified 05/22/22 11:07 PAIN Home Medications Medication Instructions Recorded Confirmed Last Taken Type albuterol sulfate 90 mcg/actuation 2 puff PO Q4H PRN Shortness Of 09/07/20 06/20/22 Unknown History aerosol inhaler Breath atenolol 50 mg tablet 50 mg PO BEDTIME 09/07/20 06/20/22 12/21/20 History blood sugar diagnostic #10 ea 09/07/20 06/20/22 Unknown History buprenorphine 2 mg-naloxone 0.5 mg 0.5 film sublingual DAILY 09/07/20 06/20/22 06/29/22 09:00 History sublingual film 0.5 film cetirizine 10 mg tablet 10 mg PO DAILY 09/07/20 06/20/22 Unknown History cholecalciferol (vitamin D3) 50 50 mcg PO DAILY 09/07/20 06/20/22 Unknown History mcg (2,000 unit) tablet duloxetine 60 mg capsule,delayed 60 mg PO BID 09/07/20 06/20/22 Unknown History release econazole 1 % topical cream 1 appl topical BEDTIME 09/07/20 06/20/22 Unknown History ferrous gluconate 240 mg (27 mg 240 mg PO Q OTHER DAY 09/07/20 06/20/22 06/28/22 History iron) tablet fluticasone propionate 50 1 spray intranasal BID 09/07/20 06/20/22 Unknown History mcg/actuation nasal spray,suspension lancets 33 gauge #100 ea 09/07/20 06/20/22 Unknown History losartan 100 mg tablet 100 mg PO DAILY 09/07/20 06/20/22 Unknown History metformin 500 mg tablet 500 mg PO DAILY 09/07/20 06/20/22 06/29/22 07:30 History simvastatin 20 mg tablet 20 mg PO BEDTIME 09/07/20 06/20/22 Unknown History zolpidem 10 mg tablet 10 mg PO BEDTIME PRN Insomnia 09/07/20 06/20/22 Unknown History amlodipine 5 mg tablet 5 mg PO DAILY 09/27/20 06/20/22 12/21/20 History fluticasone propionate 230 2 puff PO BID 12/21/20 06/20/22 Unknown History mcg-salmeterol 21 mcg/actuation HFA inhaler (Advair HFA) acetaminophen 500 mg tablet [id number] mg PO Q6-8H PRN 03/10/21 06/20/22 Unknown History alcohol swabs 0 pad topical 03/10/21 06/20/22 Unknown History baclofen 20 mg tablet 20 mg PO TID 03/10/21 06/20/22 Unknown History lidocaine-prilocaine 2.5 %-2.5 % g topical 03/10/21 06/20/22 Unknown History topical cream meloxicam 15 mg tablet 15 mg PO DAILY 03/10/21 06/20/22 Unknown History mupirocin 2 % topical ointment topical TID 03/10/21 06/20/22 Unknown History ascorbic acid (vitamin C) 250 mg 250 mg PO DAILY 05/22/22 06/20/22 Unknown History tablet ibuprofen 800 mg tablet 800 mg PO TID 06/20/22 06/20/22 Unknown History pregabalin 150 mg capsule 150 mg PO 06/20/22 06/20/22 06/29/22 07:30 History Exam Airway Mallampati Class: III TM Dist: >3cm Partial: Upper and Lower Loose/Missing/Broken Teeth: Yes Assessment and Plan Assessment Anesthesia Assessment: Anesthesia Plan Discussed Final Anesthetic Review NPO: Yes ASA Class: III Final Preanesthetic Review: No Changes in Pt Med Stat, Meds/Allgs Chart Reviewed, Consent Obtained/Reviewed and Anes Risks/Benef Reviewed Patient Risk: Intermediate Procedure Risk: Low Anesthetic Plan Anesthetic Plan: MAC: Disposition: Standard PACU Documented by User: Rohith Slade MD [facility] Active Problems Active Problems: All Active Problems (Updated 02/02/22 @ 10:20 by Aryan Estrella MD) Dysplasia of cervix, low grade (COLEMAN 1) (Acute) Lumbar back pain with radiculopathy affecting right lower extremity (Acute) Pre-procedural examination (Acute) HPV in female (Acute) Anemia (Acute) Sacroiliac joint dysfunction of right side (Acute) Sacroiliitis (Acute) Disc degeneration, lumbar (Acute) Spondylosis of lumbar spine (Acute) Well woman exam (Acute) Chronic constipation (Acute) Chronic pain syndrome (Acute) Status post revision of total knee replacement (Acute) Neck pain (Acute) Epigastric pain (Acute) Duodenal diverticulum (Acute) Abdominal bloating (Acute) Colon cancer screening (Acute) Early satiety (Acute) Osteoarthritis of hands, bilateral (Acute) Trigger finger, left little finger (Acute) Osteoarthritis of fingers of both hands (Acute) Numbness and tingling in both hands (Acute) Overflow stress urinary incontinence in female (Acute) Urge incontinence (Acute) Primary osteoarthritis of hands, bilateral (Acute) GERD (gastroesophageal reflux disease) (Acute) Past Medical History Medical History Acute blood loss anemia Asthma-COPD overlap syndrome Chronic pain syndrome Diabetes Disc degeneration, lumbar MENDENHALL (dyspnea on exertion) GERD (gastroesophageal reflux disease) HPV test positive Hx of carpal tunnel syndrome Hypertension Loose right total knee arthroplasty Lumbar back pain with radiculopathy affecting right lower extremity Osteoarthritis of right knee Overflow stress urinary incontinence in female Presence of dental bridge Primary osteoarthritis of hands, bilateral Pulmonary nodules Sacroiliac joint dysfunction of right side Sacroiliitis Sleep apnea Urge incontinence Family History Family History Mother Diabetes Arthritis Brother Cancer Family history of problems with anesthesia: No Surgical History Surgical History H/O knee surgery History of arthroplasty of right knee History of carpal tunnel release of both wrists History of endometrial ablation History of esophagogastroduodenoscopy (EGD) History of orthopedic surgery History of pubovaginal sling Hx of section Hx of colonoscopy Previous back surgery History of Problems with Anesthesia: No Social History Social History Household Members: None Housing: Apartment Are you a primary long term care phlebotomist to a significant other at home: No Do you presently have visiting nurse or other home services: Yes ([employer]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) Alcohol intake: former Year quit: 2018 Patient Tobacco Use Status: Former Tobacco user Quit Date: a year ago Tobacco use type: Cigarette Cigarettes Per Day: 30 Years Smoked: 2015 Smoked in Last 30 Days: No Use of substances other than those prescribed or required for medical reasons: Yes Substance Use Type: Crack/Cocaine and Marijuana Are you DNR?: No Advance Directives: No Advance Directives Information Provided: Yes Advance Directives on File: No service: No Current occupational status: disabled Meds Allergies Allergy/AdvReac Type Severity Reaction Status Date / Time ibuprofen [IBUPROFEN] Allergy Mild STOMACH Verified 05/22/22 11:07 PAIN Home Medications Medication Instructions Recorded Confirmed Last Taken Type albuterol sulfate 90 mcg/actuation 2 puff PO Q4H PRN Shortness Of 09/07/20 06/20/22 Unknown History aerosol inhaler Breath atenolol 50 mg tablet 50 mg PO BEDTIME 09/07/20 06/20/22 12/21/20 History blood sugar diagnostic #10 ea 09/07/20 06/20/22 Unknown History buprenorphine 2 mg-naloxone 0.5 mg 0.5 film sublingual DAILY 09/07/20 06/20/22 06/29/22 09:00 History sublingual film 0.5 film cetirizine 10 mg tablet 10 mg PO DAILY 09/07/20 06/20/22 Unknown History cholecalciferol (vitamin D3) 50 50 mcg PO DAILY 09/07/20 06/20/22 Unknown His tory mcg (2,000 unit) tablet duloxetine 60 mg capsule,delayed 60 mg PO BID 09/07/20 06/20/22 Unknown History release econazole 1 % topical cream 1 appl topical BEDTIME 09/07/20 06/20/22 Unknown History ferrous gluconate 240 mg (27 mg 240 mg PO Q OTHER DAY 09/07/20 06/20/22 06/28/22 History iron) tablet fluticasone propionate 50 1 spray intranasal BID 09/07/20 06/20/22 Unknown History mcg/actuation nasal spray,suspension lancets 33 gauge #100 ea 09/07/20 06/20/22 Unknown History losartan 100 mg tablet 100 mg PO DAILY 09/07/20 06/20/22 Unknown History metformin 500 mg tablet 500 mg PO DAILY 09/07/20 06/20/22 06/29/22 07:30 History simvastatin 20 mg tablet 20 mg PO BEDTIME 09/07/20 06/20/22 Unknown History zolpidem 10 mg tablet 10 mg PO BEDTIME PRN Insomnia 09/07/20 06/20/22 Unknown History amlodipine 5 mg tablet 5 mg PO DAILY 09/27/20 06/20/22 12/21/20 History fluticasone propionate 230 2 puff PO BID 12/21/20 06/20/22 Unknown History mcg-salmeterol 21 mcg/actuation HFA inhaler (Advair HFA) acetaminophen 500 mg tablet [id number] mg PO Q6-8H PRN 03/10/21 06/20/22 Unknown History alcohol swabs 0 pad topical 03/10/21 06/20/22 Unknown History baclofen 20 mg tablet 20 mg PO TID 03/10/21 06/20/22 Unknown History lidocaine-prilocaine 2.5 %-2.5 % g topical 03/10/21 06/20/22 Unknown History topical cream meloxicam 15 mg tablet 15 mg PO DAILY 03/10/21 06/20/22 Unknown History mupirocin 2 % topical ointment topical TID 03/10/21 06/20/22 Unknown History ascorbic acid (vitamin C) 250 mg 250 mg PO DAILY 05/22/22 06/20/22 Unknown History tablet ibuprofen 800 mg tablet 800 mg PO TID 06/20/22 06/20/22 Unknown History pregabalin 150 mg capsule 150 mg PO 06/20/22 06/20/22 06/29/22 07:30 History Exam Exam Date and Time: June 29, 2022 1104 Height,Weight and Vital Signs: Height 5 ft 3 in Weight 70.76 kg Assessment and Plan Final Anesthetic Review Family History of Problems with Anesthesia: No History of Problems with Anesthesia: No
[2022-06-29 11:25] LABS: Glucose, Whole Blood 95 mg/dL (60-115)
--- NOTE | 2022-06-29 11:30 | P.OP_ITS ---
Operative Note Operative Note Date of Service: 06/29/22 Narrative: After obtaining informed consent and explaining to the patient risks, benefits and alternatives to treat his pain, the patient was brought up to the operating room where she was positioned supine on the stretcher.? [employer] [employer] monitors were applied and general anesthesia was induced with endotracheal intubation.? After that the patient was transferred to the operating table in the prone position.? All pressure points were protected.? The patient received antibiotic cefazolin 2 g intravenously 30 minutes before incision. Time-out was performed delineating correct site and side of the procedure, name and date of of the patient, risk of fire, need for antibiotic prophylaxis risk of DVT and need for DVT prophylaxis. ? After that the patient?s entire back? and left upper buttock were prepped with Chloraprep and draped with full body drape including ioban film. Sterilely drape C-arm was brought over the OR field and square pictures of the L1, L2, L3 vertebrae were demonstrated on the screen. The position of the SCS previously implanted was noted on the patient's lumbar spine. The position of the leads was such that it presented a certain challenge for the incertion of the needle. Initially the entrance point? for the catheter was chosen as theL2-L3 interspace above the level of the electrodes. In the strict midline fashion 8.5 cm vertical skin incision was made with #15 scalpel. The incision was widened with the Weitlaner retractor and deepened with electrocautery. Thorough hemostasis was obtained using electrocautery. scar tissues were encountered while dissecting and multiple but was ill need to be cauterized. The prevertebral fascia was freed from overlaying tissues. After that 100 mm introducer spinal 16 g needle was incerted under x-ray guidance in the projection of the left L3 pedicle on AP view. The needle advanced under the x- ray guidance with intemittent A-P? and lateral pictures toward the spinal canal. it got intimately involved with the SCS electrodes, the decision was made to switch position of the needle below the level of the SCS electrodes however at the same intervertebral level. At this position advancement of the needle appe ared to be more safe. When on the lateral view the needle entered the spinal canal the stylet was removed and the clear flow of the CSF was obtain through the needle hub. Intrathecal Ascenda catheter was inserted through the needle and advanced under the x-ray guidance toward the T7 mid body vertebral body projection. The stylet was removed from the catheter and the flow of CSF fluid straw colored and clear was observed coming from the catheter.? Purse-string suture was applied surrounding? the a needle and it was tied.? After that the needle was withdrawn with care taken to keep the catheter in place.? Anchoring device was dislodged on the catheter and advanced until it met prevertebral fascia.? It was engaged on the body of the catheter.? Two anchoring Tycron sutures were used to suture right wing of the anchor to prevertebral fascia and 1 anchoring suture was used to stitch in the Left wing of anchoring device to prevertebral fascia. ?After that the thorough irrigation of the wound was performed and wound was packed with vancomycin soaked 4 x 4. Surgicel was used to achieve more thorough hemostasis. Attention then was concentrated on the patient's righ upper buttock.Sterilely draped C-arm was brought over the operative field again and position of the patient's ?right iliac crest was demonstrated on the screen.? 2 cm below the projection of the? left iliac crest? to the skin of the local anesthetic lidocaine plus bupivacaine 1-1 was injected in the linear horizontal fashion.? After that 9 cm incision was performed in patient's? left upper buttock alongside the injected line. ? Thorough hemostasis was obtained using cautery device.? After that the wound was widened and made 2 cm deep .? The wound was extended medially and laterally as well as caudally and cranially to form the space to accommodate the body of the pump.? Thorough hemostasis was performed.? The wound was irrigated with vancomycin containing normal saline and then tunneling device was used to con nect both wounds and dislodged the intrathecal catheter into the side wound.? The catheter was trimmed appropriately after that and sutureless connection device was mounted on the catheter.? After that sutureless connection device was connected to the pump.? Aspiration of the side port of the pump revealed clear flow of CSF.? Three anchoring 1-0 Tycron sutures were applied in most SUPERIOR MEDIAL AND SUPERIOR LATERAL CORNERS OF THE WOUND as well as most inferior medial corner of the wound.? After that the sutures were connected to the brackets on the body of the pump, intrathecal catheter was gathered behind the body of the pump and pump was dislodged into the wound.? After that the anchoring sutures were tied.? After that noncoring needle was used again to reach side port of the pump and clear flow of CSF 0.5 mL was demonstrated in the syringe connected to the noncoring needle. ? Thorough irrigation was performed again in both wounds.? Thorough hemostasis was verified.? 0 polisorb sutures were used to close both wounds, 2-0 suture of the same nature were used to approximate the skin.? Erwin were applied to the skin line and Bacitracin ointment was applied to the staple lines.? Sterile dressing with sterile 4x4s was performed, abdominal binder was applied.? Upon completion of the procedure patient was awaken extubated and taken outside of the operating room to recovery room where She recovered uneventfully.? ReplyForward
[2022-06-29] MEDS: Albuterol Sulfate (0.083%) 2.5 MG/3 ML VIAL.NEB INHALE (11:44)
[2022-06-29 12:11] LABS: MRSA Nasal PCR NEGATIVE (Negative); SA Nasal PCR NEGATIVE (Negative)
--- NOTE | 2022-06-29 15:05 | PM.OP ---
Brief Operative Note Date of Service: 06/29/22 Pre-op diagnosis: chronic pain syndrome Post-op diagnosis: same Procedure: implantation of intrathecal pain pump Implants: sunchromed II intrathecal pump and ascenda intrathecal cathether Surgeon: Luis Enrique Rees MD Anesthesia: MAC Was an Control System Manager used for this Procedure?: No Estimated blood loss (mL): 30 Pathology: none sent Condition: stable Disposition: PACU
== END 2022-06-29 16:08 | disposition home or self-care (01) ==
PROVIDERS: Nurse Practitioner Family; PCP Internal Medicine; Visit Provider Anesthesiology
PROC: (CPT 62350; principal; 2022-06-29 11:30)
DX: M54.16 Radiculopathy, lumbar region (principal); G89.4 Chronic pain syndrome; M53.3 Sacrococcygeal disorders, not elsewhere classified; M46.1 Sacroiliitis, not elsewhere classified; M47.816 Spondylosis without myelopathy or radiculopathy, lumbar region; M51.36 Other intervertebral disc degeneration, lumbar region; I10 Essential (primary) hypertension; J44.9 Chronic obstructive pulmonary disease, unspecified; E11.9 Type 2 diabetes mellitus without complications; Z79.51 Long term (current) use of inhaled steroids; Z79.84 Long term (current) use of oral hypoglycemic drugs; Z79.899 Other long term (current) drug therapy; Z88.8 Allergy status to other drugs, medicaments and biological substances; Z87.891 Personal history of nicotine dependence
CPT/HCPCS: 62350; 62362; 82947; 87640; 87641; 94640; C1755; C1772; J0690; J2250; J2795; J3370

== ENCOUNTER 2022-07-03 11:08 | Day surgery (SDC) | payer OTHER, SELFPAY ==
--- NOTE | ~2022-07-03 | FL_ITS ---
EXAMINATION: XR FLUOROSCOPY WITH IMAGES CLINICAL INFORMATION: Evaluation for thumb injection COMPARISON: 05/23/2022 TECHNIQUE: Fluoroscopy performed by Dr. Marielle Zamarripa. Fluoroscopy time: 8.48 seconds. Cumulative Dose: 0.1367 mGy. DAP: 0.0083 Gy-cm2. Images: 2. FINDINGS: Radiopaque needle overlies the interphalangeal joint space of the thumb. FL/FL guidance in OR IMPRESSION: Fluoroscopy is provided.
[2022-07-03 14:28] VITALS: BP 118/50; PULSE 55; RESP 18; TEMP 36.4; O2SAT 99
--- NOTE | 2022-07-03 15:35 | MHC.SHP ---
Pre-Procedural Eval Section A Date of Service: 07/03/22 The patient is an INPATIENT: No Changes since office visit: No Cold of Flu in the past 2 weeks, No New Medical Problems, No Changes in Medication and No Patient answered all questions The History & Physical has been completed within 30 days and I have reviewed it.: Yes Section B Chief Complaint: Primary osteoarthritis, right and left hand Allergies: Allergies Allergy/AdvReac Type Severity Reaction Status Date / Time ibuprofen [IBUPROFEN] Allergy Mild STOMACH Verified 05/22/22 11:07 PAIN Plan I have reviewed the history and physical and performed a pertinent physical examination on my patient. No changes have occurred unless specified.
--- NOTE | 2022-07-03 15:35 | PM.PRCOR ---
Brief Operative Note Date of procedure: 07/03/22 Pre-op diagnosis: Osteoarthritis right middle finger PIP, right thumb IP joints Procedure: Diagnoses: 1. Right middle finger PIP joint osteoarthritis 2. Right thumb IP joint osteoarthritis Steroid Injections using the FluoroScan for needle guidance: 1. Right middle finger PIP joint 2. Right thumb IP joint Injection #1: The risks and benefits of a steroid injection including but not limited to risk of damage to blood vessels, nerves, tendons, infection, skin bleaching, failure to improve symptoms, increased pain, and possible need for further injections or other intervention were discussed with the patient and the patient wishes to proceed with the steroid injection. Once consent was obtained, I sterilely prepped the area over right middle finger PIP joint . I then injected the dorsal ulnar aspect of the right middle finger PIP joint with a combination of 1 mL of Depo-Medrol (40mg/ml), and 1% lidocaine using the FluoroScan for needle guidance. The patient tolerated the procedure well and in with no complications, and had good relief of symptoms before leaving the procedure room. Injection 2: Once consent was obtained, I sterilely prepped the area over? right thumb IP joint .? I then injected the? right thumb IP joint? with a combination of 1? mL of Depo-Medrol (40mg/ml), and 1% lidocaine, using the FluoroScan for needle guidance .? The patient tolerated the procedure well and in with no complications, and had good relief of symptoms before leaving the procedure room. Anesthesia: none Surgeon: Marielle Zamarripa
== END 2022-07-03 15:05 | disposition home or self-care (01) ==
PROVIDERS: PCP Internal Medicine; Visit Provider Orthopaedic Surgery
PROC: (CPT 20600; principal; 2022-07-03 12:40)
DX: M19.041 Primary osteoarthritis, right hand (principal); M25.541 Pain in joints of right hand; G89.4 Chronic pain syndrome; I10 Essential (primary) hypertension; R20.0 Anesthesia of skin; R20.2 Paresthesia of skin; R91.8 Other nonspecific abnormal finding of lung field; D62 Acute posthemorrhagic anemia; J44.9 Chronic obstructive pulmonary disease, unspecified; E11.9 Type 2 diabetes mellitus without complications; Z88.8 Allergy status to other drugs, medicaments and biological substances; Z87.891 Personal history of nicotine dependence
CPT/HCPCS: 20600 ×2; J1020

== ENCOUNTER → 2022-07-05 09:44 | Outpatient (BNVA) | payer OTHER, SELFPAY | PROVIDERS: PCP Internal Medicine; Visit Provider Anesthesiology | DX: M47.26 Other spondylosis with radiculopathy, lumbar region (principal); M53.3 Sacrococcygeal disorders, not elsewhere classified; M46.1 Sacroiliitis, not elsewhere classified; M51.36 Other intervertebral disc degeneration, lumbar region; G89.4 Chronic pain syndrome | CPT/HCPCS: 99212 ==

== ENCOUNTER → 2022-07-12 09:47 | Outpatient (BNVA) | payer OTHER, SELFPAY | PROVIDERS: PCP Internal Medicine; Visit Provider Anesthesiology | DX: M54.16 Radiculopathy, lumbar region (principal); M53.3 Sacrococcygeal disorders, not elsewhere classified; M46.1 Sacroiliitis, not elsewhere classified; M51.36 Other intervertebral disc degeneration, lumbar region; M47.816 Spondylosis without myelopathy or radiculopathy, lumbar region; G89.4 Chronic pain syndrome | CPT/HCPCS: 99212 ==

== ENCOUNTER → 2022-07-26 10:21 | Outpatient (BNVA) | payer OTHER, SELFPAY | PROVIDERS: PCP Internal Medicine; Visit Provider Anesthesiology | DX: M54.16 Radiculopathy, lumbar region (principal); M53.3 Sacrococcygeal disorders, not elsewhere classified; M46.1 Sacroiliitis, not elsewhere classified; M51.36 Other intervertebral disc degeneration, lumbar region; M47.816 Spondylosis without myelopathy or radiculopathy, lumbar region; G89.4 Chronic pain syndrome | CPT/HCPCS: 62368; 99212 ==

== ENCOUNTER → 2022-08-10 08:08 | Outpatient (BNVA) | payer OTHER, SELFPAY | PROVIDERS: PCP Internal Medicine; Visit Provider Anesthesiology | DX: M54.16 Radiculopathy, lumbar region (principal); M53.3 Sacrococcygeal disorders, not elsewhere classified; M46.1 Sacroiliitis, not elsewhere classified; M51.36 Other intervertebral disc degeneration, lumbar region; M47.816 Spondylosis without myelopathy or radiculopathy, lumbar region; G89.4 Chronic pain syndrome | CPT/HCPCS: 62370; 99212 ==

== ENCOUNTER 2022-08-30 09:59 | Outpatient (REF) | payer OTHER, SELFPAY ==
--- NOTE | 2022-08-30 | EMG_ITS ---
Please see scanned EMG / Nerve Conduction Report. MTDD
== END 2022-08-30 10:00 | disposition home or self-care (01) ==
LOC: HO.NEURO 09:59
PROVIDERS: Visit Provider Orthopaedic Surgery
DX: R20.0 Anesthesia of skin (principal); R20.2 Paresthesia of skin; M19.041 Primary osteoarthritis, right hand; M19.042 Primary osteoarthritis, left hand
CPT/HCPCS: 95885; 95913; 99212

== ENCOUNTER → 2022-09-21 12:55 | Outpatient (BNVA) | payer OTHER, SELFPAY | PROVIDERS: PCP Internal Medicine; Visit Provider Anesthesiology | DX: M54.16 Radiculopathy, lumbar region (principal); M53.3 Sacrococcygeal disorders, not elsewhere classified; M46.1 Sacroiliitis, not elsewhere classified; M51.36 Other intervertebral disc degeneration, lumbar region; M47.816 Spondylosis without myelopathy or radiculopathy, lumbar region; G89.4 Chronic pain syndrome | CPT/HCPCS: 99212 ==

== ENCOUNTER 2022-10-11 10:28 | Outpatient (REF) | payer OTHER, SELFPAY ==
--- NOTE | ~2022-10-11 | CT_ITS ---
EXAMINATION: CT ABDOMEN AND PELVIS WITH CONTRAST CLINICAL INFORMATION: Epigastric pain COMPARISON: CT abdomen and pelvis 08/04/2019 TECHNIQUE: Multidetector volumetric images were obtained from the superior aspect of the liver through the pubic symphysis following administration 85 mL of Omnipaque 350 intravenous contrast. Sagittal and coronal reformatted images were obtained on the technologist's workstation. Oral contrast: No This CT examination was performed using dose optimization techniques as appropriate, variously including the following: *Automated exposure control *Adjustment of mA and/or kV according to patient size (this includes techniques or standardized protocols for targeted exams where dose is matched to indication/reason for exam; i.e. extremities or head) *Use of iterative reconstruction technique DLP: 340 mGy-cm FINDINGS: LUNG BASES: Band-like atelectatic changes seen in the left lower lobe. Heart size is normal. LIVER, GALLBLADDER, AND BILIARY TREE: The liver is normal in size, shape, and attenuation. There is a 4 mm calcification in the caudate lobe and a 6 mm calcification segment 4B. No intrahepatic ductal dilatation seen.. There is a 5 mm radiopaque density along the posterior wall of the gallbladder, question stone versus small calcification on axial image 31/3. PANCREAS: Unremarkable. SPLEEN: Unremarkable. ADRENAL GLANDS: Bilateral adrenal glands are unremarkable. KIDNEYS AND URETERS: The kidneys are normal in size, shape, and attenuation. No hydronephrosis, hydroureter, or calculi seen. No perinephric stranding. BLADDER: Unremarkable. GASTROINTESTINAL TRACT: There is large amount of stool and oral contrast seen throughout the colon without distention. The small bowel loops are normal caliber. The appendix is not visualized with certainty. However, there is a band of soft tissue thickening posterior to cecum best visualized on sagittal image 75/5. The stomach is unremarkable. There are small duodenal diverticulum adjacent to pancreas, stable. ABDOMINAL WALL: No significant hernia is appreciated. LYMPH NODES: Normal. VASCULAR: Unremarkable. PELVIC VISCERA: Unremarkable. OSSEOUS STRUCTURES: There is vacuum disc phenomena L4-L5 and L1-L2 disc levels. No aggressive lytic or sclerotic process seen. There is moderate ventral spondylosis throughout lumbar spine. CT/CT abdomen pelvis w IV con IMPRESSION: 1. No acute intra-abdominal process seen. 2. Moderate constipation. No obstruction seen. 3. There is a band of soft tissue thickening posterior to the cecum. It is stable to 2019 exam The appendix is not seen. Question appendix. Correlate with clinical exam. Fleischner guidelines were followed.
[2022-10-11] MEDS: iohexoL 350 MG/ML 100 ML INFUS..BTL IV (12:54)
[2022-10-11] MEDS: Barium Sulfate Oral (Berry) 450 ML ORAL.SUSP 900 ML PO (12:55)
[2022-10-11 14:14] LABS: Creatinine POC 0.6 mg/dL (0.5-1.4); GFR POC > 60
== END 2022-10-11 10:29 | disposition home or self-care (01) ==
LOC: HO.CT 10:28
PROVIDERS: PCP General Practice; Visit Provider Internal Medicine Gastroenterology
DX: R10.13 Epigastric pain (principal); K57.10 Diverticulosis of small intestine without perforation or abscess without bleeding; M54.16 Radiculopathy, lumbar region; M53.3 Sacrococcygeal disorders, not elsewhere classified; M46.1 Sacroiliitis, not elsewhere classified; M51.36 Other intervertebral disc degeneration, lumbar region; M47.816 Spondylosis without myelopathy or radiculopathy, lumbar region; J44.9 Chronic obstructive pulmonary disease, unspecified
CPT/HCPCS: 62370; 74177; 82565; 99212; Q9967

== ENCOUNTER → 2022-10-12 13:04 | Outpatient (BNVA) | payer OTHER, SELFPAY | PROVIDERS: PCP Internal Medicine; Visit Provider Internal Medicine Pulmonary Disease | DX: J44.1 Chronic obstructive pulmonary disease with (acute) exacerbation (principal); R91.8 Other nonspecific abnormal finding of lung field | CPT/HCPCS: 99212 ==

== ENCOUNTER → 2022-10-18 14:14 | Outpatient (BNVA) | payer OTHER, SELFPAY | PROVIDERS: PCP General Practice; Visit Provider Orthopaedic Surgery | DX: M19.041 Primary osteoarthritis, right hand (principal); M19.042 Primary osteoarthritis, left hand; R20.0 Anesthesia of skin | CPT/HCPCS: 99212 ==

== ENCOUNTER → 2022-10-19 10:13 | Outpatient (BNVA) | payer OTHER, SELFPAY | PROVIDERS: PCP General Practice; Visit Provider Anesthesiology | DX: J44.9 Chronic obstructive pulmonary disease, unspecified (principal); J20.9 Acute bronchitis, unspecified; M54.16 Radiculopathy, lumbar region; M53.3 Sacrococcygeal disorders, not elsewhere classified; M46.1 Sacroiliitis, not elsewhere classified; M51.36 Other intervertebral disc degeneration, lumbar region; M47.816 Spondylosis without myelopathy or radiculopathy, lumbar region; G89.4 Chronic pain syndrome | CPT/HCPCS: 94640; 96372; 99212; J2930 ==

== ENCOUNTER 2022-10-20 11:36 | Outpatient (REF) | payer OTHER, SELFPAY ==
--- NOTE | ~2022-10-20 | XR_ITS ---
EXAMINATION: XR CHEST 2 VIEWS CLINICAL INFORMATION: Uncomplicated asthma. COMPARISON: CT chest dated 09/26/2020; chest radiograph dated 11/07/2019. TECHNIQUE: Frontal and lateral views of the chest were obtained. FINDINGS: The heart, great vessels, pulmonary vasculature and mediastinum are normal. The lungs show no focal infiltrate, effusion or pneumothorax. There is bronchiolar wall thickening. There is no acute osseous abnormality. There is a mild thoracic dextroscoliosis. A spinal stimulator device is noted. XR/XR chest 2V IMPRESSION: 1. No focal infiltrate or congestive heart failure is seen. 2. There is bronchiolar wall thickening, consistent with the provided history of asthma.
== END 2022-10-20 11:37 | disposition home or self-care (01) ==
LOC: HO.XRAY 11:36
PROVIDERS: PCP Internal Medicine; Visit Provider Internal Medicine Pulmonary Disease
DX: J45.909 Unspecified asthma, uncomplicated (principal)
CPT/HCPCS: 71046

== ENCOUNTER → 2022-10-25 10:39 | Outpatient (BNVA) | payer OTHER, SELFPAY | PROVIDERS: PCP Internal Medicine; Visit Provider Anesthesiology | DX: Z45.49 Encounter for adjustment and management of other implanted nervous system device (principal); M54.16 Radiculopathy, lumbar region; M47.816 Spondylosis without myelopathy or radiculopathy, lumbar region; M46.1 Sacroiliitis, not elsewhere classified; M53.3 Sacrococcygeal disorders, not elsewhere classified; G89.4 Chronic pain syndrome; J45.909 Unspecified asthma, uncomplicated; J44.9 Chronic obstructive pulmonary disease, unspecified | CPT/HCPCS: 99212 ==

== ENCOUNTER 2022-10-31 14:45 | Outpatient (REF) | payer OTHER, SELFPAY ==
--- NOTE | ~2022-10-31 | CT_ITS ---
EXAMINATION: CT CHEST WITHOUT CONTRAST CLINICAL INFORMATION: Pulmonary nodules COMPARISON: 10/04/2020 TECHNIQUE: Multidetector volumetric CT imaging of the chest was done. Axial MIP volume rendering provided. Sagittal and coronal reformatted images were obtained. This CT examination was performed using dose optimization techniques as appropriate, variously including the following: *Automated exposure control *Adjustment of mA and/or kV according to patient size (this includes techniques or standardized protocols for targeted exams where dose is matched to indication/reason for exam; i.e. extremities or head) *Use of iterative reconstruction technique DLP: 252 mGy-cm FINDINGS: BIKE DESIGNER: Spinal stimulator wiring noted. LUNGS: The central airways are patent. There is no consolidation. No pneumothorax. Pulmonary nodules are again noted. 1. Adjacent left lower lobe nodules are again noted measuring 0.6 cm 234. These are unchanged. 2. Superior to this there is an additional left lower lobe 0.6 cm nodule on series 5 image 222, unchanged. 3. 0.4 cm left lower lobe nodule on series 5 image 361. This is unchanged. The limited comparison due to motion on prior. 4. 0.7 cm left lower lobe nodule on series 5 image 370. Motion on prior limits evaluation for comparison. There was an area of consolidation in this region on the recent prior abdominal CT and this could be residual. MEDIASTINUM: Normal heart size. No pericardial effusion . No mediastinal lymphadenopathy. CORONARY ARTERY CALCIFICATION: Mild. PLEURA: There is no pleural effusion. No pleural mass or thickening. AXILLA: No lymphadenopathy. UPPER ABDOMEN: Calcifications throughout the liver. No acute abnormality. OSSEOUS STRUCTURES: No acute or suspicious osseous abnormality. Degenerative change throughout the spine. Stimulator wiring extends to the T7 level in the spinal canal. CT/CT chest wo IV con IMPRESSION: Multiple left lower lobe pulmonary nodules are again noted. The majority of these are unchanged from prior. There is a 0.7 cm left lower lobe nodule which is not well seen on the prior study due to motion on the prior abdominal CT. This could be residual consolidation from prior pneumonia. According to the UPDATED 2017 Fleischner Society recommendations, the advised follow-up imaging for a single 6-8 mm solid nodule is: LOW RISK PATIENT: CT at 6-12 months, then consider CT at 18-24 months. HIGH RISK PATIENT: CT at 6-12 months, then at 18-24 months.
--- NOTE | 2022-10-31 17:16 | PFT_ITS ---
INDICATION: COPD. SPIROMETRY: FEV1 to FVC of 85% with an FEV1 of 2.14 L, which is 90% predicted and FVC of 2.51 L, which is 83% predicted. No significant response to bronchodilators noted. Maximum voluntary ventilation 90% predicted. LUNG VOLUMES: Total lung capacity 101% predicted with expiratory residual volume of 20% predicted. DIFFUSION CAPACITY: DLCO of 81% predicted. COMPARISONS: None. INTERPRETATION: No obstructive nor restrictive ventilatory defects identified. No significant response to bronchodilators noted. Normal maximum voluntary ventilation. Lung volumes are normal except for decrease in the expiratory residual volume. Diffusion capacity is low normal. If asthma is in the differential, methacholine challenge may be helpful for assessing for hyper-reactive airway disease, otherwise clinical correlation warranted. Thony Espinosa MD MR/MODL / [id number]
== END 2022-10-31 14:46 | disposition home or self-care (01) ==
LOC: HO.RESP 14:45
PROVIDERS: PCP Internal Medicine; Visit Provider Internal Medicine Pulmonary Disease
DX: J44.9 Chronic obstructive pulmonary disease, unspecified (principal); R91.8 Other nonspecific abnormal finding of lung field
CPT/HCPCS: 71250; 94060; 94727; 94729

== ENCOUNTER → 2022-11-21 14:05 | Outpatient (BNVA) | payer OTHER, SELFPAY | PROVIDERS: PCP Internal Medicine; Visit Provider Internal Medicine Pulmonary Disease | DX: Z01.811 Encounter for preprocedural respiratory examination (principal); J44.9 Chronic obstructive pulmonary disease, unspecified; Z79.899 Other long term (current) drug therapy | CPT/HCPCS: 99212 ==

== ENCOUNTER 2022-11-29 | Outpatient (REF) | payer OTHER, SELFPAY ==
--- NOTE | ~2022-11-29 | FL_ITS ---
EXAMINATION: XR FLUOROSCOPY WITH IMAGES CLINICAL INFORMATION: Primary osteoarthritis right hand. COMPARISON: 05/23/2022 . TECHNIQUE: Fluoroscopy Supervised By: Dr. Marielle Zamarripa. Fluoroscopy Time: 16.9 seconds. DAP: 6149.7 Gycm2. Images: 3. FINDINGS: Images demonstrate a needle at the level of the first interphalangeal joint and a needle at the third proximal interphalangeal joint. A screw is seen in place across the second distal interphalangeal joint with bony fusion. There is bony fusion of the fifth distal interphalangeal joint. FL/FL guidance in treatment room IMPRESSION: Intraoperative fluoroscopy for orthopedic procedure.
== END 2022-11-29 00:01 | disposition home or self-care (01) ==
LOC: CF
PROVIDERS: PCP Internal Medicine; Visit Provider Orthopaedic Surgery
DX: M19.042 Primary osteoarthritis, left hand (principal); M19.041 Primary osteoarthritis, right hand; R20.0 Anesthesia of skin
CPT/HCPCS: 20600; 99212; J1020

== ENCOUNTER → 2022-12-06 10:51 | Outpatient (BNVA) | payer OTHER, SELFPAY | PROVIDERS: PCP Internal Medicine; Visit Provider Anesthesiology | DX: M54.16 Radiculopathy, lumbar region (principal); M53.3 Sacrococcygeal disorders, not elsewhere classified; M46.1 Sacroiliitis, not elsewhere classified; M51.36 Other intervertebral disc degeneration, lumbar region; M47.816 Spondylosis without myelopathy or radiculopathy, lumbar region; J45.909 Unspecified asthma, uncomplicated; J44.9 Chronic obstructive pulmonary disease, unspecified; G89.4 Chronic pain syndrome | CPT/HCPCS: 62370; 99212 ==

== ENCOUNTER 2022-12-21 13:27 | Outpatient (REF) | payer OTHER, SELFPAY ==
[2022-12-21 14:36] LABS: MANUAL DIFF FLAG NO
[2022-12-21 15:18] LABS: Basophils Absolute Auto 0.1 X10*3/uL (0.0-0.2); Basophils Percent Auto 0.5 % (0-2); Eosinophils Absolute Auto 0.4 X10*3/uL (0.0-0.4); Eosinophils Percent Auto 3.7 % (0-4); Hematocrit 34.6 % (37.0-47.0); Hemoglobin 11.4 g/dl (12.0-16.0); Imm Gran Abs Auto 0.03 X10*3/uL (0.00-0.03); Imm Gran Pct Auto 0.3 % (0.0-0.4); Lymphocytes Absolute Auto 3.1 X10*3/uL (1.2-4.9); Lymphocytes Percent Auto 32.7 % (20-40); Mean Corpuscular HGB Conc 32.9 g/dl (31.0-35.0); Mean Corpuscular Hemoglobin 30.3 pg (27.0-33.0); Mean Platelet Volume 11.6 fL (9.4-12.3); Monocytes Absolute Auto 0.6 X10*3/uL (0.1-1.2); Monocytes Percent Auto 6.5 % (2-11); Neutrophils Absolute Auto 5.3 x10*3/uL (2.0-8.3); Neutrophils Percent Auto 56.3 % (45-73); Platelet Count 294 X10*3/uL (160-400); Red Blood Count 3.76 X10*6/uL (4.20-5.50); Red Cell Distribution Width 12.9 % (11.0-16.0); White Blood Count 9.5 X10*3/uL (4.8-10.8)
[2022-12-21 15:19] LABS: Appearance Urine Clear; Color Urine Yellow; Glucose Urine UA Negative (Negative); Leukocyte Esterase Urine Trace (Negative); Nitrite Urine Negative (Negative); PH 5.5 (5.0-9.0); UMIC TRIGGER UACC YES; Urine Blood Negative (Negative); Urine Ketones Trace mg/dL (Negative); Urine Protein Negative (Neg-Trace)
[2022-12-21 15:21] LABS: Bacteria Urine None Seen (None Seen); RBC Urine 0-2 /HPF (0-2); Squamous Epithelial Cell Urine 0-2 /HPF (0-2); WBC Urine 0-5 /HPF (0-5)
[2022-12-21 15:43] LABS: Alanine Aminotransferase 12 U/L (0-31); Albumin Level 4.1 g/dL (3.5-5.0); Alkaline Phosphatase 59 U/L (39-117); Anion Gap 11 (12-20); Aspartate Amino Transferase 17 U/L (5-31); Bilirubin Total 0.2 mg/dL (0.0-1.0); Blood Urea Nitrogen 10 mg/dL (9-16); C Reactive Protein 0.43 mg/dL (< or = 0.50); Calcium 9.2 mg/dL (8.4-10.2); Carbon Dioxide 32 mmol/L (22-29); Chloride 104 mmol/L (96-108); Estimated Glomerular Filt Rate > 60; Glucose Random 84 mg/dL (60-115); Lipase 73 U/L (8-78); Potassium 5.4 mmol/L (3.3-5.1); Sodium 142 mmol/L (135-145); Total Protein 6.5 g/dL (6.5-8.0)
== END 2022-12-21 13:28 | disposition home or self-care (01) ==
LOC: HO.LAB 13:27
PROVIDERS: PCP Internal Medicine; Referring Provider Internal Medicine; Visit Provider Internal Medicine Gastroenterology
DX: R10.10 Upper abdominal pain, unspecified (principal)
CPT/HCPCS: 36415; 80053; 81001; 83690; 85025; 86140; 99212

== ENCOUNTER 2022-12-22 12:48 | Outpatient (REF) | payer OTHER, SELFPAY ==
--- NOTE | ~2022-12-22 | XR_ITS ---
EXAMINATION: XR KUB CLINICAL INDICATION: Reason for Exam R14.0 - Abdominal distension (gaseous) COMPARISON: None TECHNIQUE: AP view of the abdomen. XR/XR KUB FINDINGS/IMPRESSION: Lines or devices: Left lower quadrant spinal stimulator device. Right lower quadrant device is noted. Nonobstructive bowel gas pattern. No abnormal calcifications. Visualized portions of the lung bases appear clear.
== END 2022-12-22 12:49 | disposition home or self-care (01) ==
LOC: HO.XRAY 12:48
PROVIDERS: PCP Internal Medicine; Visit Provider Internal Medicine Gastroenterology
DX: R14.0 Abdominal distension (gaseous) (principal)
CPT/HCPCS: 74018

== ENCOUNTER → 2022-12-26 12:13 | Outpatient (BNVA) | payer OTHER, SELFPAY | PROVIDERS: PCP Internal Medicine; Visit Provider Orthopaedic Surgery | DX: M19.041 Primary osteoarthritis, right hand (principal); M19.042 Primary osteoarthritis, left hand; R20.0 Anesthesia of skin | CPT/HCPCS: 99212 ==

== ENCOUNTER 2022-12-28 06:51 | Day surgery (SDC) | payer OTHER, MEDICAID, SELFPAY ==
[2022-12-22 12:58] VITALS: BMI 28.3
--- NOTE | 2022-12-27 12:24 | P.CONAN_ITS ---
Documented by User: Yolande Montemayor NP 12/27/22 12:25 HPI - Anesthesia Eval Consult details Narrative: 62yo F for Right Middle Finger Arthrodesis, Carpal Tunnel Release s/p IDD implant 06/2022 with MAC PMFSH Active Problems Active Problems: All Active Problems (Updated 12/21/22 @ 14:10 by Sherri Britton MD) Neck pain (Acute) Epigastric pain (Acute) Duodenal diverticulum (Acute) Abdominal bloating (Acute) Colon cancer screening (Acute) Early satiety (Acute) Osteoarthritis of hands, bilateral (Acute) Trigger finger, left little finger (Acute) Osteoarthritis of fingers of both hands (Acute) Numbness and tingling in both hands (Acute) Status post revision of total knee replacement (Acute) Chronic constipation (Acute) Well woman exam (Acute) Spondylosis of lumbar spine (Acute) Anemia (Acute) HPV in female (Acute) Pre-procedural examination (Acute) Dysplasia of cervix, low grade (COLEMAN 1) (Acute) Bilateral hand numbness (Acute) Asthma (Acute) COPD (chronic obstructive pulmonary disease) (Acute) Pulmonary nodules (Acute) Acute bronchitis (Acute) Preop pulmonary/respiratory exam (Acute) Upper abdominal pain (Acute) Abdominal bloating (Acute) Lumbar back pain with radiculopathy affecting right lower extremity (Acute) Sacroiliac joint dysfunction of right side (Acute) Sacroiliitis (Acute) Disc degeneration, lumbar (Acute) Chronic pain syndrome (Acute) Overflow stress urinary incontinence in female (Acute) Urge incontinence (Acute) Primary osteoarthritis of hands, bilateral (Acute) GERD (gastroesophageal reflux disease) (Acute) Past Medical History Medical History Acute blood loss anemia Asthma-COPD overlap syndrome Chronic pain syndrome Diabetes Disc degeneration, lumbar MENDENHALL (dyspnea on exertion) GERD (gastroesophageal reflux disease) HPV test positive Hx of carpal tunnel syndrome Hypertension Loose right total knee arthroplasty Lumbar back pain with radiculopathy affecting right lower extremity Osteoarthritis of right knee Overflow stress urinary incontinence in female Presence of dental bridge Primary osteoarthritis of hands, bilateral Pulmonary nodules Sacroiliac joint dysfunction of right side Sacroiliitis Sleep apnea Urge incontinence Family History Family History Mother Diabetes Arthritis Brother Cancer Family history of problems with anesthesia: No Surgical History Surgical History H/O knee surgery History of arthroplasty of right knee History of carpal tunnel release of both wrists History of endometrial ablation History of esophagogastroduodenoscopy (EGD) History of orthopedic surgery History of pubovaginal sling Hx of section Hx of colonoscopy Previous back surgery History of Problems with Anesthesia: No Social History Social History Household Members: None Housing: Apartment Are you a primary reproductive healthcare assistant to a significant other at home: No 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) Alcohol intake: former Year quit: 2017 Patient Tobacco Use Status: Former Tobacco user Quit Date: a year ago Tobacco use type: Cigarette Cigarettes Per Day: 30 Years Smoked: 2014 Substance Use Type: Crack/Cocaine and Marijuana Advance Directives: No Advance Directives Information Provided: Yes service: No Current occupational status: disabled Meds Allergies Allergy/AdvReac Type Severity Reaction Status Date / Time ibuprofen [IBUPROFEN] Allergy Mild STOMACH Verified 12/28/22 06:52 PAIN Home Medications Medication Instructions Recorded Confirmed Last Taken Type atenolol 50 mg tablet 50 mg PO BEDTIME 09/07/20 12/28/22 12/27/22 History blood sugar diagnostic #10 ea 09/07/20 12/21/22 Unknown History cetirizine 10 mg tablet 10 mg PO DAILY 09/07/20 12/28/22 Unknown History cholecalciferol (vitamin D3) 50 50 mcg PO DAILY 09/07/20 12/28/22 Unknown History mcg (2,000 unit) tablet duloxetine 60 mg capsule,delayed 60 mg PO BID 09/07/20 12/28/22 Unknown History release ferrous gluconate 240 mg (27 mg 240 mg PO Q OTHER DAY 09/07/20 12/28/22 12/27/22 History iron) tablet fluticasone propionate 50 1 spray intranasal BID 09/07/20 12/28/22 Unknown History mcg/actuation nasal spray,suspension lancets 33 gauge #100 ea 09/07/20 12/21/22 Unknown History losartan 100 mg tablet 100 mg PO DAILY 09/07/20 12/28/2212/27/23 History metformin 500 mg tablet 500 mg PO DAILY 09/07/20 12/28/22 06/29/22 07:30 History simvastatin 20 mg tablet 20 mg PO BEDTIME 09/07/20 12/28/22 Unknown History zolpidem 10 mg tablet 10 mg PO BEDTIME PRN Insomnia 09/07/20 12/28/22 Unknown History amlodipine 5 mg tablet 5 mg PO DAILY 09/27/20 12/28/22 12/27/22 History alcohol swabs 0 pad topical 03/10/21 12/21/22 Unknown History baclofen 20 mg tablet 20 mg PO TID 03/10/21 12/28/22 Unknown History meloxicam 15 mg tablet 15 mg PO DAILY 03/10/21 12/28/22 Unknown History mupirocin 2 % topical ointment topical TID 03/10/21 12/21/22 Unknown History ascorbic acid (vitamin C) 250 mg 250 mg PO DAILY 05/22/22 12/28/22 Unknown History tablet ibuprofen 800 mg tablet 800 mg PO TID 06/20/22 12/22/22 Unknown History acetaminophen 500 mg tablet (Pain 500 mg PO Q4H PRN Pain 12/21/22 12/28/22 Unknown History Reliever Extra Strength (acetaminophen)) hydromorphone (PF) 10 ml continuous epidural 12/21/22 12/21/22 12/28/22 05:45 History mcg/mL-bupivacaine 0.0625%-0.9NaCL epidural resv pregabalin 150 mg capsule 150 mg PO TID 12/21/22 12/28/22 12/28/22 History Exam Exam Date and Time: December 27, 2022 1224 Height,Weight and Vital Signs: Height 5 ft 3 in Weight 72.575 kg Pertinent Lab Results Pertinent Lab Results: Laboratory Tests 12/21/22 12/21/22 14:34 14:34 WBC 9.5 Hgb 11.4 L Hct 34.6 L Plt Count 294 Sodium 142 Potassium 5.4 H Chloride 104 Carbon Dioxide 32 H BUN 10 Creatinine 0.78 Assessment and Plan Assessment Anesthesia Assessment: Chart Reviewed Final Anesthetic Review Family History of Problems with Anesthesia: No History of Problems with Anesthesia: No Documented by User: Hortencia Burns MD 12/28/22 07:32 [facility] Past Medical History Medical History Acute blood loss anemia Asthma-COPD overlap syndrome Chronic pain syndrome Diabetes Disc degeneration, lumbar MENDENHALL (dyspnea on exertion) GERD (gastroesophageal reflux disease) HPV test positive Hx of carpal tunnel syndrome Hypertension Loose right total knee arthroplasty Lumbar back pain with radiculopathy affecting right lower extremity Osteoarthritis of right knee Overflow stress urinary incontinence in female Presence of dental bridge Primary osteoarthritis of hands, bilateral Pulmonary nodules Sacroiliac joint dysfunction of right side Sacroiliitis Sleep apnea Urge incontinence Family History Family History Mother Diabetes Arthritis Brother Cancer Surgical History Surgical History H/O knee surgery History of arthroplasty of right knee History of carpal tunnel release of both wrists History of endometrial ablation History of esophagogastroduodenoscopy (EGD) History of orthopedic surgery History of pubovaginal sling Hx of section Hx of colonoscopy Previous back surgery Social History Social History Household Members: None Housing: Apartment Are you a primary reproductive healthcare assistant to a significant other at home: No 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) Alcohol intake: former Year quit: 2017 Patient Tobacco Use Status: Former Tobacco user Quit Date: a year ago Tobacco use type: Cigarette Cigarettes Per Day: 30 Years Smoked: 2014 Substance Use Type: Crack/Cocaine and Marijuana Advance Directives: No Advance Directives Information Provided: Yes service: No Current occupational status: disabled Meds Allergies Allergy/AdvReac Type Severity Reaction Status Date / Time ibuprofen [IBUPROFEN] Allergy Mild STOMACH Verified 12/28/22 06:52 PAIN Home Medications Medication Instructions Recorded Confirmed Last Taken Type atenolol 50 mg tablet 50 mg PO BEDTIME 09/07/20 12/28/22 12/27/22 History blood sugar diagnostic #10 ea 09/07/20 12/21/22 Unknown History cetirizine 10 mg tablet 10 mg PO DAILY 09/07/20 12/28/22 Unknown History cholecalciferol (vitamin D3) 50 50 mcg PO DAILY 09/07/20 12/28/22 Unknown History mcg (2,000 unit) tablet duloxetine 60 mg capsule,delayed 60 mg PO BID 09/07/20 12/28/22 Unknown History release ferrous gluconate 240 mg (27 mg 240 mg PO Q OTHER DAY 09/07/20 12/28/22 12/27/22 History iron) tablet fluticasone propionate 50 1 spray intranasal BID 09/07/20 12/28/22 Unknown History mcg/actuation nasal spray,suspension lancets 33 gauge #100 ea 09/07/20 12/21/22 Unknown History losartan 100 mg tablet 100 mg PO DAILY 09/07/20 12/28/22 12/27/22 History metformin 500 mg tablet 500 mg PO DAILY 09/07/20 12/28/22 06/29/22 07:30 History simvastatin 20 mg tablet 20 mg PO BEDTIME 09/07/20 12/28/22 Unknown History zolpidem 10 mg tablet 10 mg PO BEDTIME PRN Insomnia 09/07/20 12/28/22 Unknown History amlodipine 5 mg tablet 5 mg PO DAILY 09/27/20 12/28/22 12/27/22 History alcohol swabs 0 pad topical 03/10/21 12/21/22 Unknown History baclofen 20 mg tablet 20 mg PO TID 03/10/21 12/28/22 Unknown History meloxicam 15 mg tablet 15 mg PO DAILY 03/10/21 12/28/22 Unknown History mupirocin 2 % topical ointment topical TID 03/10/21 12/21/22 Unknown History ascorbic acid (vitamin C) 250 mg 250 mg PO DAILY 05/22/22 12/28/22 Unknown History tablet ibuprofen 800 mg tablet 800 mg PO TID 06/20/22 12/22/22 Unknown History acetaminophen 500 mg tablet (Pain 500 mg PO Q4H PRN Pain 12/21/22 12/28/22 Unknown History Reliever Extra Strength (acetaminophen)) hydromorphone (PF) 10 ml continuous epidural 12/21/22 12/21/22 12/28/22 05:45 History mcg/mL-bupivacaine 0.0625%-0.9NaCL epidural resv pregabalin 150 mg capsule 150 mg PO TID 12/21/22 12/28/22 12/28/22 History Exam Airway Mallampati Class: II TM Dist: >3cm Neck ROM: Full Denture: Upper Heart: rrr Lungs: cta Assessment and Plan Assessment Anesthesia Assessment: Anesthesia Plan Discussed Final Anesthetic Review ASA Class: III Final Preanesthetic Review: No Changes in Pt Med Stat, Meds/Allgs Chart Reviewed and Consent Obtained/Reviewed Patient Risk: Intermediate Procedure Risk: Low Anesthetic Plan Anesthetic Plan: GA and Agree w/ Assess. and Plan Disposition: Standard PACU
[2022-12-28] VITALS (8 sets, daily range): BP systolic 134–170; BP diastolic 50–77; PULSE 54–81; RESP 11–17; TEMP 36.9–37; O2SAT 89–99; BMI 27.6
--- NOTE | ~2022-12-28 | FL_ITS ---
EXAMINATION: XR FLUOROSCOPY WITH IMAGES CLINICAL INFORMATION: Arthrodesis right third finger COMPARISON: Fluoroscopic spot views 11/29/2022. TECHNIQUE: Fluoroscopy Supervised By: Dr. Marielle Zamarripa. Fluoroscopy Time: 38 seconds. Cumulative Dose: 0.674 mGy. DAP: 0.041 Gycm2. Images: 7. FINDINGS: Cannulated screw is used for arthrodesis. DIP joint. Hardware is intact. There is no dislocation. Prominent osteoarthritic changes are present DIP joint. FL/FL guidance in OR IMPRESSION: Fluoroscopy for orthopedic procedure with arthrodesis right 3rd DIP joint.
[2022-12-28] MEDS: Lactated Ringers 1,000 ML 100 ML IVCONT (06:52)
[2022-12-28] MEDS: Albuterol Sulfate (0.083%) 2.5 MG/3 ML VIAL.NEB INHALE (07:22)
--- NOTE | 2022-12-28 07:30 | PC.NURSE ---
Patient has two intrathecal pain pumps implanted in her back, one on the left one on the right. Per patient, they only release medications when I push the button on this , (points to eternal device). Last dose per her was at 0545 when she pushed the button. Dr. Burns at bedside and made aware of this. Vivienne OR nurse also made aware.
[2022-12-28 07:36] LABS: Glucose, Whole Blood 141 mg/dL (60-115)
--- NOTE | 2022-12-28 07:48 | MHC.SHP ---
Pre-Procedural Eval Section A Date of Service: 12/28/22 The patient is an INPATIENT: No Changes since office visit: No Cold of Flu in the past 2 weeks, No New Medical Problems, No Changes in Medication and No Patient answered all questions The History & Physical has been completed within 30 days and I have reviewed it.: Yes Section B Chief Complaint: Primary osteoarthritis, Primary osteoarthritis, ri Allergies: Allergies Allergy/AdvReac Type Severity Reaction Status Date / Time ibuprofen [IBUPROFEN] Allergy Mild STOMACH Verified 12/28/22 06:52 PAIN Plan I have reviewed the history and physical and performed a pertinent physical examination on my patient. No changes have occurred unless specified. Time Spent With Patient Time: Total time managing care of this patient today ____ minutes.
--- NOTE | 2022-12-28 07:49 | W.PM.OPN ---
Operative Note Operative Note Date of Service: 12/28/22 Narrative: Operative Note Narrative: Preop diagnosis: 1. Right middle finger D IP joint arthritis Postop diagnosis: Same Procedure: 1. Right middle finger D IP joint arthrodesis Surgeon: Marielle Zamarripa MD Anesthesia: General Anesthesia Findings: D IP joint arthritis Implants: OsteoMed headless compression screw 2.0 mm by 26 mm Tourniquet time: 55 minutes EBL: 5.0 ml Specimen: none Drains: None Complications: None Disposition: Brought to the recovery room in stable condition Plan: Follow-up in 10-14 days for wound check, suture removal, radiographs and finger splinting. Encourage MCP and PIP joint range of motion Indications: The patient is 62 years old with right middle finger D IP joint osteoarthritis that has been unresponsive to non operative measures. The risks and benefits of operative treatment, including but not limited to risk of damage to blood vessels, nerves, tendons, infection, recurrence, persistent pain or numbness, incomplete resolution of preoperative symptoms, or need for further surgery were discussed with the patient and they wished to proceed with surgery. Procedure: Once consent was obtained patient was brought back to the operating suite and placed in the operating table in a supine position. . Perioperative antibiotics and anesthesia was administered by the anesthesia team. A tourniquet was applied to the proximal aspect of the right upper extremity and the limb was prepped and draped in a standard surgical fashion. The limb was elevated exsanguinated with Esmarch bandage and the tourniquet inflated to 250 mm of mercury for a total tourniquet time of 55 minutes. The mini C-arm was used during the case to facilitate placement of our guidewire, arthrodesis alignment and position of our headless compression screw. An S shaped incision was made over the dorsal aspect of the right middle finger D IP joint. The incision was made through the skin to the subcutaneous tissues using a 15. Blade. I dissected down to the level of the extensor tendon and the extensor tendon was cut transversely using a 15. Blade directly over the D IP joint. This then revealed our joint. A rongeur was used to remove some of the periarticular osteophytes and also to remove any remaining articular cartilage from the D IP joint. A curette was also used to facilitate removal of articular cartilage. I then used a 0.035 K-wire to fenestrate the subchondral bone on both the proximal and distal joint surfaces to facilitate bony healing across our arthrodesis site. A small longitudinal incision was made directly over the tip of the finger. I dissected down to the tip of the distal phalanx using tenotomy scissors. The K-wire from the AcuTrak 2 mini headless compression screw set was then advanced retrograde through the tip of the distal phalanx proximally across the D IP joint and into the middle phalanx. Placement of this guidewire was visualized on orthogonal fluoroscopic images. Once satisfied with its placement the length of the needed screw was measured. I then used the long narrow cannulated Reamer over the placed guidewire to ream across the D IP joint to the appropriate depth. The short fat cannulated Reamer was then used to open up the cortex at the tip of the finger. A 2.0 mm AcuTrak 2 mini headless compression screw was then advanced retrograde over the guidewire across the D IP joint into the appropriate position. We achieved excellent compression at the arthrodesis site. The guidewire was removed and final radiographs were obtained. At this point the tourniquet was deflated and hemostasis obtained with a brief period of local pressure and bipolar electrocautery. The wound was copiously irrigated with normal saline. The skin edges were reapproximated with 5-0 nylon suture. A Digital block was performed using some 0.5% plain ropivacaine for postop pain control and a sterile dressing was applied. I placed the patient in a volar splint extending from the tips of the middle ring and small fingers to the volar forearm. The patient appears to have tolerated the procedure well and with no complications. All digits were well vascularized conclusion of the case.
== END 2022-12-28 12:01 | disposition home or self-care (01) ==
PROVIDERS: PCP General Practice; Visit Provider Orthopaedic Surgery
PROC: (CPT 26860; principal; 2022-12-28 07:30)
DX: M19.041 Primary osteoarthritis, right hand (principal); M79.644 Pain in right finger(s); M25.641 Stiffness of right hand, not elsewhere classified; R20.0 Anesthesia of skin; Z98.1 Arthrodesis status; G89.4 Chronic pain syndrome; Z98.890 Other specified postprocedural states; J44.9 Chronic obstructive pulmonary disease, unspecified; I10 Essential (primary) hypertension; E11.9 Type 2 diabetes mellitus without complications; Z79.899 Other long term (current) drug therapy; Z88.8 Allergy status to other drugs, medicaments and biological substances; F12.90 Cannabis use, unspecified, uncomplicated; F14.90 Cocaine use, unspecified, uncomplicated; Z87.891 Personal history of nicotine dependence
CPT/HCPCS: 26860; 82947; 94640; C1713; J0690; J1100; J2370; J2795; J3010

== ENCOUNTER 2023-01-10 10:20 | Outpatient (REF) | payer OTHER, SELFPAY ==
--- NOTE | ~2023-01-10 | XR_ITS ---
EXAMINATION: XR HAND, RIGHT CLINICAL INFORMATION: Pain COMPARISON: Hand radiographs 05/23/2022 TECHNIQUE: PA, lateral, and oblique views of the right hand. FINDINGS: Single surgical screw fusing the second PIP joint with osseous fusion. New surgical screw fusing the third PIP joint without definite osseous fusion. No evidence of hardware fracture or complication. No acute fracture or dislocation. Advanced degenerative changes of the proximal and distal interphalangeal joints. Soft tissue swelling about XR/XR hand RT min 3V the third digit IMPRESSION: Single surgical screw fusing the second PIP joint with osseous fusion. New surgical screw fusing the third PIP joint without definite osseous fusion. No evidence of hardware fracture or complication. Soft tissue swelling about the third digit. Advanced degenerative changes of the hand.
== END 2023-01-10 10:21 | disposition home or self-care (01) ==
LOC: HO.HOSX 10:20
PROVIDERS: Visit Provider Orthopaedic Surgery
DX: M19.041 Primary osteoarthritis, right hand (principal); M19.042 Primary osteoarthritis, left hand; R20.0 Anesthesia of skin
CPT/HCPCS: 73130

== ENCOUNTER 2023-01-29 13:36 | Outpatient (REF) | payer OTHER, SELFPAY | END 2023-01-29 13:37 | disposition home or self-care (01) | LOC: HO.HOSX 13:36 | PROVIDERS: Visit Provider Orthopaedic Surgery | DX: Z13.89 Encounter for screening for other disorder (principal) ==

== ENCOUNTER 2023-01-30 | Outpatient (REF) | payer OTHER, SELFPAY ==
--- NOTE | ~2023-01-30 | XR_ITS ---
EXAMINATION: XR HAND, RIGHT CLINICAL INFORMATION: Fracture COMPARISON: Right hand 01/30/2023 TECHNIQUE: PA, lateral, and oblique views of the right hand. FINDINGS: Single surgical screw fusing the second DIP joint with osseous fusion. Surgical screw fusing the third DIP joint without definite osseous fusion. No evidence of hardware fracture or complication. No fracture. Advanced degenerative changes of the proximal and distal interphalangeal joints. There is a long-standing fusion of the DIP joint of the little finger which may be congenital in origin. XR/XR hand RT min 3V IMPRESSION: Postsurgical changes of the second and third DIP joints without evidence of hardware fracture or complication.
== END 2023-01-30 00:01 | disposition home or self-care (01) ==
LOC: HO.HOSX
PROVIDERS: Visit Provider Orthopaedic Surgery
DX: M79.641 Pain in right hand (principal)
CPT/HCPCS: 73130

== ENCOUNTER → 2023-01-30 13:11 | Outpatient (BNVA) | payer OTHER, SELFPAY | PROVIDERS: PCP General Practice; Visit Provider Orthopaedic Surgery | DX: M19.041 Primary osteoarthritis, right hand (principal); M19.042 Primary osteoarthritis, left hand; R20.0 Anesthesia of skin | CPT/HCPCS: 73130; 99212 ==

== ENCOUNTER 2023-02-01 | Outpatient (REF) | payer OTHER, SELFPAY | END 2023-02-01 00:01 | LOC: CF | PROVIDERS: PCP General Practice; Visit Provider Anesthesiology | DX: M54.16 Radiculopathy, lumbar region (principal); M53.3 Sacrococcygeal disorders, not elsewhere classified | CPT/HCPCS: 99212 ==

== ENCOUNTER 2023-03-15 08:49 | Outpatient (REF) | payer OTHER, SELFPAY ==
--- NOTE | 2023-03-15 09:09 | EMG_ITS ---
Bilateral median and ulnar motor and sensory studies were performed. Bilateral radial and sensory studies were performed and paraspinal muscles were tested with a needle. IMPRESSION: 1. Mild bilateral median neuropathy across carpal tunnel. 2. Mild right ulnar neuropathy across cubital tunnel. MD LILIBETH Pond/DEANNA / [id number]
== END 2023-03-15 08:50 | disposition home or self-care (01) ==
LOC: HO.NEURO 08:49
PROVIDERS: PCP General Practice; Visit Provider Orthopaedic Surgery
DX: R20.0 Anesthesia of skin (principal); R20.2 Paresthesia of skin
CPT/HCPCS: 95886; 95911

== ENCOUNTER → 2023-03-21 09:48 | Outpatient (BNVA) | payer OTHER, SELFPAY | PROVIDERS: PCP Internal Medicine; Visit Provider Anesthesiology | DX: M54.16 Radiculopathy, lumbar region (principal); M53.3 Sacrococcygeal disorders, not elsewhere classified; M46.1 Sacroiliitis, not elsewhere classified; M51.36 Other intervertebral disc degeneration, lumbar region; M47.816 Spondylosis without myelopathy or radiculopathy, lumbar region; G89.4 Chronic pain syndrome; Z96.89 Presence of other specified functional implants | CPT/HCPCS: 62370; 99212 ==

== ENCOUNTER → 2023-03-22 12:22 | Outpatient (BNVA) | payer OTHER, SELFPAY | PROVIDERS: Visit Provider Internal Medicine Gastroenterology | DX: R19.7 Diarrhea, unspecified (principal); R10.13 Epigastric pain; R14.0 Abdominal distension (gaseous); R68.81 Early satiety; K57.10 Diverticulosis of small intestine without perforation or abscess without bleeding; K21.9 Gastro-esophageal reflux disease without esophagitis; Z12.11 Encounter for screening for malignant neoplasm of colon | CPT/HCPCS: 99212 ==

== ENCOUNTER 2023-03-30 12:03 | Day surgery (SDC) | payer OTHER, SELFPAY ==
--- NOTE | 2023-03-29 12:35 | P.CONAN_ITS ---
Documented by User: Yolande Montemayor NP 03/29/23 12:38 HPI - Anesthesia Eval Consult details Narrative: 62yo F for Upper Endoscopy and Colonoscopy s/p?Right Middle Finger Arthrodesis, Carpal Tunnel Release 12/2022 with GA-LMA 5 intrathecal drug delivery in situ PMFSH Active Problems Active Problems: All Active Problems (Updated 03/22/23 @ 13:02 by Sherri Britton MD) Diarrhea (Acute) Neck pain (Acute) Epigastric pain (Acute) Duodenal diverticulum (Acute) Abdominal bloating (Acute) Colon cancer screening (Acute) Early satiety (Acute) Osteoarthritis of hands, bilateral (Acute) Trigger finger, left little finger (Acute) Osteoarthritis of fingers of both hands (Acute) Numbness and tingling in both hands (Acute) Status post revision of total knee replacement (Acute) Chronic constipation (Acute) Well woman exam (Acute) Spondylosis of lumbar spine (Acute) Anemia (Acute) HPV in female (Acute) Pre-procedural examination (Acute) Dysplasia of cervix, low grade (COLEMAN 1) (Acute) Bilateral hand numbness (Acute) Asthma (Acute) COPD (chronic obstructive pulmonary disease) (Acute) Pulmonary nodules (Acute) Acute bronchitis (Acute) Preop pulmonary/respiratory exam (Acute) Upper abdominal pain (Acute) Abdominal bloating (Acute) Lumbar back pain with radiculopathy affecting right lower extremity (Acute) Sacroiliac joint dysfunction of right side (Acute) Sacroiliitis (Acute) Disc degeneration, lumbar (Acute) Chronic pain syndrome (Acute) Overflow stress urinary incontinence in female (Acute) Urge incontinence (Acute) Primary osteoarthritis of hands, bilateral (Acute) GERD (gastroesophageal reflux disease) (Acute) Past Medical History Medical History Acute blood loss anemia Asthma-COPD overlap syndrome Chronic pain syndrome Diabetes Disc degeneration, lumbar MENDENHALL (dyspnea on exertion) GERD (gastroesophageal reflux disease) HPV test positive Hx of carpal tunnel syndrome Hypertension Loose right total knee arthroplasty Lumbar back pain with radiculopathy affecting right lower extremity Osteoarthritis of right knee Overflow stress urinary incontinence in female Presence of dental bridge Primary osteoarthritis of hands, bilateral Pulmonary nodules Sacroiliac joint dysfunction of right side Sacroiliitis Sleep apnea Urge incontinence Family History Family History Mother Diabetes Arthritis Brother Cancer Family history of problems with anesthesia: No Surgical History Surgical History H/O knee surgery History of arthroplasty of right knee History of carpal tunnel release of both wrists History of endometrial ablation History of esophagogastroduodenoscopy (EGD) History of orthopedic surgery History of pubovaginal sling Hx of section Hx of colonoscopy Previous back surgery History of Problems with Anesthesia: No Social History Social History Household Members: None Housing: Apartment Are you a primary patient care representative to a significant other at home: No 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) Alcohol intake: former Year quit: 2017 Patient Tobacco Use Status: Current everyday Tobacco user Tobacco use type: Cigarette Cigarettes Per Day: 30 Years Smoked: 2014 Substance Use Type: Crack/Cocaine and Marijuana Are you DNR?: No Advance Directives: No Advance Directives Information Provided: Yes service: No Current occupational status: disabled Meds Allergies Allergy/AdvReac Type Severity Reaction Status Date / Time No Known Allergies Allergy Verified 03/30/23 12:11 Home Medications Medication Instructions Recorded Confirmed Last Taken Type atenolol 50 mg tablet 50 mg PO BEDTIME 09/07/20 03/22/23 12/27/22 History cetirizine 10 mg tablet 10 mg PO DAILY 09/07/20 03/22/23 Unknown History cholecalciferol (vitamin D3) 50 50 mcg PO DAILY 09/07/20 03/22/23 Unknown Histo ry mcg (2,000 unit) tablet duloxetine 60 mg capsule,delayed 60 mg PO BID 09/07/20 03/22/23 Unknown History release ferrous gluconate 240 mg (27 mg 240 mg PO Q OTHER DAY 09/07/20 03/22/23 03/20/23 History iron) tablet fluticasone propionate 50 1 spray intranasal BID 09/07/20 03/22/23 Unknown History mcg/actuation nasal spray,suspension losartan 100 mg tablet 100 mg PO DAILY 09/07/20 03/22/23 12/27/22 History metformin 500 mg tablet 500 mg PO DAILY 09/07/20 03/22/23 06/29/22 07:30 History simvastatin 20 mg tablet 20 mg PO BEDTIME 09/07/20 03/22/23 Unknown History zolpidem 10 mg tablet 10 mg PO BEDTIME PRN Insomnia 09/07/20 03/22/23 Unknown History amlodipine 5 mg tablet 5 mg PO DAILY 09/27/20 03/22/23 03/30/23 History baclofen 20 mg tablet 20 mg PO TID 03/10/21 03/22/23 Unknown History meloxicam 15 mg tablet 15 mg PO DAILY 03/10/21 03/22/23 03/20/23 History mupirocin 2 % topical ointment topical TID 03/10/21 03/22/23 Unknown History ascorbic acid (vitamin C) 250 mg 250 mg PO DAILY 05/22/22 03/22/23 Unknown History tablet ibuprofen 800 mg tablet 800 mg PO TID 06/20/22 03/22/23 03/20/23 History melatonin 3 mg tablet 3 mg PO BEDTIME 02/01/23 03/22/23 Unknown History Exam Exam Date and Time: March 29, 2023 1235 Pertinent Lab Results Pertinent Lab Results: Laboratory Tests 12/21/22 12/21/22 14:34 14:34 WBC 9.5 Hgb 11.4 L Hct 34.6 L Plt Count 294 Sodium 142 Potassium 5.4 H Chloride 104 Carbon Dioxide 32 H BUN 10 Creatinine 0.78 Assessment and Plan Assessment Anesthesia Assessment: Chart Reviewed Final Anesthetic Review Family History of Problems with Anesthesia: No History of Problems with Anesthesia: No Documented by User: Enrique Kiran MD 03/30/23 14:29 [facility] Past Medical History Medical History Acute blood loss anemia Asthma-COPD overlap syndrome Chronic pain syndrome Diabetes Disc degeneration, lumbar MENDENHALL (dyspnea on exertion) GERD (gastroesophageal reflux disease) HPV test positive Hx of carpal tunnel syndrome Hypertension Loose right total knee arthroplasty Lumbar back pain with radiculopathy affecting right lower extremity Osteoarthritis of right knee Overflow stress urinary incontinence in female Presence of dental bridge Primary osteoarthritis of hands, bilateral Pulmonary nodules Sacroiliac joint dysfunction of right side Sacroiliitis Sleep apnea Urge incontinence Family History Family History Mother Diabetes Arthritis Brother Cancer Surgical History Surgical History H/O knee surgery History of arthroplasty of right knee History of carpal tunnel release of both wrists History of endometrial ablation History of esophagogastroduodenoscopy (EGD) History of orthopedic surgery History of pubovaginal sling Hx of section Hx of colonoscopy Previous back surgery Social History Social History Household Members: None Housing: Apartment Are you a primary patient care representative to a significant other at home: No 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) Alcohol intake: former Year quit: 2017 Patient Tobacco Use Status: Current everyday Tobacco user Tobacco use type: Cigarette Cigarettes Per Day: 30 Years Smoked: 2014 Substance Use Type: Crack/Cocaine and Marijuana Are you DNR?: No Advance Directives: No Advance Directives Information Provided: Yes service: No Current occupational status: disabled Meds Allergies Allergy/AdvReac Type Severity Reaction Status Date / Time No Known Allergies Allergy Verified 03/30/23 12:11 Home Medications Medication Instructions Recorded Confirmed Last Taken Type atenolol 50 mg tablet 50 mg PO BEDTIME 09/07/20 03/22/23 12/27/22 History cetirizine 10 mg tablet 10 mg PO DAILY 09/07/20 03/22/23 Unknown History cholecalciferol (vitamin D3) 50 50 mcg PO DAILY 09/07/20 03/22/23 Unknown History mcg (2,000 unit) tablet duloxetine 60 mg capsule,delayed 60 mg PO BID 09/07/20 03/22/23 Unknown History release ferrous gluconate 240 mg (27 mg 240 mg PO Q OTHER DAY 09/07/20 03/22/23 03/20/23 History iron) tablet fluticasone propionate 50 1 spray intranasal BID 09/07/20 03/22/23 Unknown History mcg/actuation nasal spray,suspension losartan 100 mg tablet 100 mg PO DAILY 09/07/20 03/22/23 12/27/22 History metformin 500 mg tablet 500 mg PO DAILY 09/07/20 03/22/23 06/29/22 07:30 History simvastatin 20 mg tablet 20 mg PO BEDTIME 09/07/20 03/22/23 Unknown History zolpidem 10 mg tablet 10 mg PO BEDTIME PRN Insomnia 09/07/20 03/22/23 Unknown History amlodipine 5 mg tablet 5 mg PO DAILY 09/27/20 03/22/23 03/30/23 History baclofen 20 mg tablet 20 mg PO TID 03/10/21 03/22/23 Unknown History meloxicam 15 mg tablet 15 mg PO DAILY 03/10/21 03/22/23 03/20/23 History mupirocin 2 % topical ointment topical TID 03/10/21 03/22/23 Unknown History ascorbic acid (vitamin C) 250 mg 250 mg PO DAILY 05/22/22 03/22/23 Unknown History tablet ibuprofen 800 mg tablet 800 mg PO TID 06/20/22 03/22/23 03/20/23 History melatonin 3 mg tablet 3 mg PO BEDTIME 02/01/23 03/22/23 Unknown History Exam Airway Mallampati Class: II TM Dist: <=3cm (large head, short neck; unfavorable jaw thrust, unfavorable airway.) Neck ROM: Full Denture: Upper Heart: ok Lungs: ok Assessment and Plan Assessment Anesthesia Assessment: Anesthesia Plan Discussed Final Anesthetic Review NPO: Yes ASA Class: III Final Preanesthetic Review: No Changes in Pt Med Stat, Meds/Allgs Chart Reviewed, Consent Obtained/Reviewed and Anes Risks/Benef Reviewed Patient Risk: High Procedure Risk: Intermediate Anesthetic Plan Anesthetic Plan: MAC: and Agree w/ Assess. and Plan Disposition: Standard PACU
[2023-03-30 06:30] VITALS: BMI 29.1
--- OUTSIDE RECORDS SUMMARY | 2023-03-30 12:06 | XMS_ITS | Continuity of Care Document ---
Author Name Unknown Organization [facility] Address [address], [address], [address] [place] [id number] Care Team Providers Care Mems Process Engineer Name Role Phone Frank Hyde Primary Care Physician Encounter [facility] [id number] Date(s): 07/06/20 - 08/05/20 [facility] [address] [place], [address], [address] [place] [id number] [facility] Attending Physician: [place] Martínez Admitting Physician: Admtr, Ar8 Referring Physician: Admtr, Ar8 Allergies, Adverse Reactions, Alerts Substance Reaction Severity Status NKA Active Medications aspirin 81 mg oral tablet 1 tablet = 81 mg, By Mouth, Daily, 0 Refills, Maintenance Start Date: 04/21/11 Status: Ordered Diovan 320 mg oral tablet 1 tablet = 320 mg, By Mouth, Daily, 0 Refills, Maintenance Start Date: 04/21/11 Status: Ordered Flexeril 10 mg oral tablet 1 tablet = 10 mg, By Mouth, 3 times a day, 0 Refills, Maintenance Start Date: 04/21/11 Status: Ordered levothyroxine 75 mcg (0.075 mg) oral tablet 1 tablet = 0.075 mg, By Mouth, Daily, 0 Refills, Maintenance Start Date: 04/21/11 Status: Ordered morphine 15 mg oral tablet, extended release 1 tablet = 15 mg, By Mouth, Every 8 hours, 0 Refills, Maintenance Start Date: 04/21/11 Status: Ordered Neurontin 300 mg oral capsule 1 capsule = 300 mg, By Mouth, 3 times a day, 0 Refills, Maintenance Start Date: 04/21/11 Status: Ordered omeprazole 20 mg oral enteric coated capsule 1 capsule = 20 mg, By Mouth, Daily, 0 Refills, Maintenance Start Date: 04/21/11 Status: Ordered ProAir HFA Inhalation, 4 times a day, 0 Refills, Maintenance Start Date: 04/21/11 Status: Ordered promethazine 25 mg oral tablet See Instructions, 1 tablet By Mouth Every4- 6 hours, # 30 tablet, 1 Refills, Acute 10/28/16 10:27:00, 10/28/15 10:39:00 Start Date: 10/28/15 Stop Date: 10/28/16 Status: Ordered Prozac 40 mg oral capsule 1 capsule = 40 mg, By Mouth, Daily, 0 Refills, Maintenance Start Date: 04/21/11 Status: Ordered Seroquel 50 mg oral tablet 1 tablet = 50 mg, By Mouth, 2 times a day, 0 Refills, Maintenance Start Date: 04/21/11 Status: Ordered TriCor 145 mg oral tablet 1 tablet = 145 mg, By Mouth, Daily, 0 Refills, Maintenance Start Date: 04/21/11 Status: Ordered Tylenol Arthritis Caplet = 1,300 mg, By Mouth, Every 8 hours, 0 Refills, Maintenance Start Date: 04/21/11 Status: Ordered Zyrtec 10 mg oral tablet 1 tablet = 10 mg, By Mouth, Daily, 0 Refills, Maintenance Start Date: 04/21/11 Status: Ordered Problem List Condition Effective Dates Status Health Status Inform ant Back pain(Confirmed) Active Pain in limb(Confirmed) Active Varicose vein(Confirmed) Active
[2023-03-30 12:19] VITALS: BP 162/57; PULSE 62; RESP 20; TEMP 36.1; O2SAT 97
[2023-03-30 12:21] LABS: Glucose, Whole Blood 96 mg/dL (60-115)
[2023-03-30] MEDS: Lactated Ringers 1,000 ML 100 ML IVCONT (12:32)
[2023-03-30] MEDS: Albuterol Sulfate (0.083%) 2.5 MG/3 ML VIAL.NEB INHALE (13:03)
[2023-03-30 13:04] VITALS: PULSE 59; RESP 18; O2SAT 95
--- NOTE | 2023-03-30 13:49 | W.PM.OPN ---
Operative Note Operative Note Date of Service: 03/30/23 Narrative: FLEXIBLE TRANSORAL UPPER GASTROINTESTINAL ENDOSCOPY WITH BIOPSIES AND COLONOSCOPY TILL CECUM WITH BIOPSIES Pre-op diagnosis: Colon cancer screening, abdominal pain Post-op diagnosis: Gastritis, diverticulosis, hemorrhoids Endoscopist:? Sherri Britton MD Anesthesia:?MAC UPPER ENDOSCOPY Consent: Indications for the procedure and potential complications of bleeding, perforation, reaction to medications and missed diagnosis were discussed with the patient and informed consent was obtained. Instrument: Olympus GIF H 190 mid size upper endoscope Monitoring: Vital signs and clinical assessment, continuous EKG monitoring, Pulse oximetry, Carbon Dioxide monitoring and blood pressure monitoring were done throughout the procedure. Procedure: The patient was placed in the left lateral decubitis position and pre-procedure medications were administered and a bite block was placed. The endoscope was inserted into the mouth and advanced under direct vision to the third part of duodenum. A careful inspection was made as the upper endoscope was withdrawn including a retroflexed examination of the proximal stomach; Findings and interventions are described below. Findings: Larynx: Normal Esophagus: GE junction at 38 cms. No esophagitis or Salas's. Stomach: Moderate diffuse gastric erythema. Biopsies were obtained. Grade 2 flap valve on retroflexed examination of the cardia. Duodenum: Normal bulb and descending duodenum. Opening of duodenal diverticulum was not visualized - likely hidden among duodenal folds Intervention: Biopsies as noted above COLONOSCOPY PROCEDURE NOTE Consent: Indications for the procedure and potential complications of bleeding, perforation, reaction to medications and missed diagnosis were discussed with the patient and informed consent was obtained. Instrument: Olympus PCF H 190 L variable stiffness pediatric colonoscope Monitoring: Vital signs and clinical assessment, intermittent blood pressure monitoring, continuous EKG monitoring, Pulse oximetry and Carbon Dioxide monitoring were done throughout the procedure. Colon withdrawl time was 17 minutes. Procedure: The patient was placed in the left lateral decubitis position and pre-procedure medications were administered. After a digital rectal examination of the ano-rectum, the video colonoscope was inserted into the rectum and advanced through the colon to the cecum. The colonoscope was slowly withdrawn in a retrograde panoramic fashion and the colon mucosa was carefully examined including a retroflexed view of the rectum. Findings and interventions are described below. Procedure Difficulty: : Without difficulty Findings: Terminal Ileum: Not evaluated Cecum: Partially evaluated due to undigested vegetable matter which could not be suctioned Ascending Colon: Normal Transverse Colon: Normal Descending Colon: Moderate diverticulosis Sigmoid Colon: Moderate diverticulosis Rectum: Normal Ano-rectum: Moderate internal hemorrhoids Colon preparation: Good after copious irrigation Impression and Post Procedure Diagnosis: Endoscopy Findings: STOMACH: Moderate difuse gastritis DUODENUM: Normal. Opening of duodenal diverticulum was not visualized - likely hidden among duodenal folds Colonoscopy Findings: No polyps were detected Random biopsies were obtained to check for microscopic colitis Moderate diverticulosis seen in the left colon Moderate hemorrhoids on retroflexed exam. Plan: Await pathology results Patient has an appointment on 06/28/23 in the GI Clinic with Sherri Britton M.D. Repeat Colonoscopy in 10 years if biopsies are normal Above findings were reviewed with the patient and Gastritis and diverticulosis handouts were given in the discharge area
[2023-03-30 14:53] VITALS: BP 135/58; PULSE 65; RESP 14; TEMP 36.9; O2SAT 95
[2023-03-30 15:08] VITALS: BP 143/66; PULSE 60; RESP 16; TEMP 36.9; O2SAT 96
== END 2023-03-30 15:31 | disposition home or self-care (01) ==
PROVIDERS: PCP Internal Medicine; Visit Provider Internal Medicine Gastroenterology
PROC: (CPT 45380; principal; 2023-03-30 13:40)
DX: Z12.11 Encounter for screening for malignant neoplasm of colon (principal); K57.30 Diverticulosis of large intestine without perforation or abscess without bleeding; K64.8 Other hemorrhoids; K59.09 Other constipation; R19.7 Diarrhea, unspecified; K21.9 Gastro-esophageal reflux disease without esophagitis; R68.81 Early satiety; K29.50 Unspecified chronic gastritis without bleeding; J44.9 Chronic obstructive pulmonary disease, unspecified; R91.8 Other nonspecific abnormal finding of lung field; I10 Essential (primary) hypertension; E11.9 Type 2 diabetes mellitus without complications; Z79.51 Long term (current) use of inhaled steroids; Z79.84 Long term (current) use of oral hypoglycemic drugs; Z79.899 Other long term (current) drug therapy; Z98.890 Other specified postprocedural states; F14.90 Cocaine use, unspecified, uncomplicated; F12.90 Cannabis use, unspecified, uncomplicated; F17.210 Nicotine dependence, cigarettes, uncomplicated
CPT/HCPCS: 45380; 43239; 82947; 88305; 88342; 94640; J3010

== ENCOUNTER 2023-04-23 14:37 | Outpatient (REF) | payer OTHER, SELFPAY ==
[2023-04-28 07:19] LABS: HPV 16 RNA NOT DETECTED (NOT DETECTED); HPV mRNA E6/E7 rflx Detected (Not Detected)
== END 2023-04-23 14:38 | disposition home or self-care (01) ==
LOC: HO.LNP 14:37
PROVIDERS: PCP Internal Medicine; Visit Provider Obstetrics & Gynecology
DX: Z01.419 Encounter for gynecological examination (general) (routine) without abnormal findings (principal); Z11.51 Encounter for screening for human papillomavirus (HPV)
CPT/HCPCS: 87624; 87625; 88142

== ENCOUNTER 2023-04-23 14:37 | Outpatient (AMB) | payer OTHER, SELFPAY ==
[2023-04-23 14:41] VITALS: BP 114/52; BMI 29.4
--- NOTE | 2023-04-23 14:41 | MHC.OFFVIS ---
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 No complaints. Last Pap/HPV was negative/HPV positive, colposcopy biopsy was scheduled but the patient did not show up, this was preceded with negative Pap/HPV positive in 03/28, followed by colpo biopsy/ECC COLEMAN 1 Last Mammogram was in 06/29 was BI-RADS 1 Last Colonoscopy was in 03/30 was negative, the recommendation was to repeat in 10 years [facility] Medical History Acute blood loss anemia Asthma-COPD overlap syndrome Chronic pain syndrome Diabetes Disc degeneration, lumbar MENDENHALL (dyspnea on exertion) GERD (gastroesophageal reflux disease) HPV test positive Hx of carpal tunnel syndrome Hypertension Loose right total knee arthroplasty Lumbar back pain with radiculopathy affecting right lower extremity Osteoarthritis of right knee Overflow stress urinary incontinence in female Presence of dental bridge Primary osteoarthritis of hands, bilateral Pulmonary nodules Sacroiliac joint dysfunction of right side Sacroiliitis Sleep apnea Urge incontinence Surgical History H/O knee surgery History of arthroplasty of right knee History of carpal tunnel release of both wrists History of endometrial ablation History of esophagogastroduodenoscopy (EGD) History of orthopedic surgery History of pubovaginal sling Hx of section Hx of colonoscopy Hx of tubal ligation Previous back surgery Family History Mother Diabetes Arthritis Brother Cancer Paternal Aunt Breast cancer Social History Household Members: None Housing: Apartment Are you a primary care coordinator to a significant other at home: No 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) Alcohol intake: former Year quit: 2018 Patient Tobacco Use Status: Current everyday Tobacco user Tobacco use type: Cigarette Cigarettes Per Day: 5 Years Smoked: 2014 Substance Use Type: Crack/Cocaine and Marijuana service: No Current occupational status: disabled Female Reproductive History Menstrual Age of Menarche: 11 control method: permanent sterilization Total pregnancies: 6 Full term: 5 Number of Living Children: 5 Ab spontaneous: 1 Date of last pap smear: 01/03/22 (+HPV) History of abnormal pap smear: Yes Date of Mammogram: 06/21/22 Review of Systems Const All systems reviewed & are unremarkable except as noted in HPI and below Card Reports as per HPI Resp Reports as per HPI GI Reports as per HPI and Reports no additional complaints Reports as per HPI Physical Exam Vital Signs: Last Vital Signs BP 114/52 L 04/23/23 14:41 BMI result Body Mass Index 29.4 Const General: cooperative, healthy appearing and comfortable Chest Chest palpation & inspection: normal inspection of the chest and normal palpation of entire chest wall Breast/axilla inspection: normal inspection of the breasts and normal inspection of the axillae Breast/axilla palpation: normal palpation of the breasts, normal palpation of the axillae and no axillary lymphadenopathy Resp Effort & Inspection: normal respiratory effort Auscultation: clear to auscultation bilaterally Percussion: percussion normal Cardio Palpation: normal PMI Rate: regular rate Rhythm: regular rhythm Heart sounds: no murmurs and no rubs Peripheral pulses: Peripheral pulses 2+ throughout GI Inspection: Yes normal to inspection Palpation (GI): Soft to palpation, nontender, no guarding, not rigid and No hepatosplenomegaly present Percussion: Yes normal to percussion Auscultation: normal bowel sounds Rectal Exam - Female: deferred General: Yes bladder normal to palpation External Female Exam: No lesion Speculum Exam - Vagina: normal appearance of the vagina, normal palpation, normal vaginal discharge and not erythematous Speculum Exam - Cervix: normal appearance of the cervix and normal palpation Bimanual exam- vagina & uterus: normal bimanual exam, normal palpation, uterine size normal, bladder normal to palpation, consistency normal and normal palpation Bimanual Exam- Adnexa, other: normal adnexae, no masses and no tenderness Assessment & Plan Assessment & Plan (1) Well woman exam: Comment: COLEMAN 1 in 2020, followed by negative Pap/HPV positive in 2021, no showed for colpo biopsy Code(s): Z01.419 - Encounter for gynecological examination (general) (routine) without abnormal findings Plan: Co testing done. Counseled the patient about the recommended dietary allowance of 1200 mg of Calcium & 600 IU of vitamin D. Mammogram ordered for 06/30 , the patient is up-to-date with her screening colonoscopy . The patient was instructed to perform monthly self-breast exams and schedule annual exam in a year; all questions answered and the patient verbalized understanding. Orders: Orders MM screening mammo BI 2 Months Z12.31 - Encounter for screening mammogram for malignant neoplasm of breast Coding Level of Care Code Est Pt Prev Care 40-64y(37299) Diagnoses Well woman exam Z01.419
== END 2023-04-23 15:57 | disposition home or self-care (01) ==
LOC: HO.HWS 14:37
PROVIDERS: PCP Internal Medicine; Visit Provider Obstetrics & Gynecology
DX: Z01.419 Encounter for gynecological examination (general) (routine) without abnormal findings (principal)
CPT/HCPCS: 99396

== ENCOUNTER 2023-05-04 09:10 | Outpatient (AMB) | payer OTHER, SELFPAY ==
--- NOTE | 2023-05-04 09:19 | A.OFFVIS_ITS ---
Patient presented for pump refill. Review of records showed that the current concentration of bupivacaine in her intrathecal pump solution is 30 milligrams/mL. This was confirmed by matching the details of the prior mixture that was filled on her last refill. however, on pump interrogation, the bupivacaine concentration was found to be programmed as 50 milligrams/mL. During pump reprogramming for pump refill, the concentration of the bupivacaine was updated to the correct concentration which is 30 milligrams/mL. Since the PEEP of a cane is a secondary drug, this change in concentration did not affect her rate of infusion, which is dependent on hydromorphone being the primary drug. We explained to the patient that the update in the concentration settings on the pump programming, would not affect the amount of bupivacaine she is currently getting because the concentration of the bupivacaine was not actually changed. Intake Vital Signs 05/04/23 09:20 Height 5 ft 2 in Weight 162 lb 8 oz BMI 29.7 BP 138/70 Blood Pressure Location Lt brachial Position Sitting Respiration 16 Pulse 66 Pulse Source Pulse Oximeter Pulse Oximetry (%) 95 Oxygen Delivery Method Room Air Intake Visit Reasons: ITDD Refill Allergies No Known Allergies Allergy (Verified 05/04/23 09:20) HPI ITDD Refill HPI Details 62-year-old female presenting today for a refill of ITDD. HPI Comments History of Present Illness Details Norma is a very pleasant 62 year old female who presents to the office today for refill of her ITDDD. She is tolerating well and reports pain is adequately managed with her pain pump. Denies any untoward effects including dizziness, weakness, somnolence, abd pain, nausea, constipation. Denies further episodes of syncope since last refill. Prior: Norma Fried is very pleasant 62 years old female who is under observation in my office with complains on lower back pain with radiation into bilateral lower extremities.? For the treatment of this condition she was given intrathecal pain pump.? She is here today to refill the pump.? Her con centrations and doses were changed today:? hydromorphone stayed 1000 micro g per mL and bupivacaine was increased to 30? milligrams/mL solution in her pain pump.? The patient reports appropriate numbness for 15 minutes after she activates her PTM device.? She reports also about 3 hours of pain relief.? She was able to press the button 5 times a day every 3 hours.??The supposed to give her 15 hours of continues pain relief.? Due to bridge bolus she will be out of the medication for 42 hours.? She recently was in [place] and she lost her consciousness several times there.? She was told that it is before cause of the pump medication.? However she did not do that loss of consciousness in [place].? Unlikely it is a pump action.? Most likely she was just dehydrated because of the high heat in [place]. ? [facility] Medical History Acute blood loss anemia Asthma-COPD overlap syndrome Chronic pain syndrome Diabetes Disc degeneration, lumbar MENDENHALL (dyspnea on exertion) GERD (gastroesophageal reflux disease) HPV test positive Hx of carpal tunnel syndrome Hypertension Loose right total knee arthroplasty Lumbar back pain with radiculopathy affecting right lower extremity Osteoarthritis of right knee Overflow stress urinary incontinence in female Presence of dental bridge Primary osteoarthritis of hands, bilateral Pulmonary nodules Sacroiliac joint dysfunction of right side Sacroiliitis Sleep apnea Urge incontinence Surgical History H/O knee surgery History of arthroplasty of right knee History of carpal tunnel release of both wrists History of endometrial ablation History of esophagogastroduodenoscopy (EGD) History of orthopedic surgery History of pubovaginal sling Hx of section Hx of colonoscopy Hx of tubal ligation Previous back surgery Family History Mother Diabetes Arthritis Brother Cancer Paternal Aunt Breast cancer Social History Household Members: None Housing: Apartment Are you a primary day care center director to a significant other at home: No Do you presently have visiting nurse or 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 home 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) Alcohol intake: former Year quit: 2018 Patient Tobacco Use Status: Current everyday Tobacco user Tobacco use type: Cigarette Cigarettes Per Day: 5 Years Smoked: 2014 Substance Use Type: Crack/Cocaine and Marijuana service: No Current occupational status: disabled Female Reproductive History Menstrual Age of Menarche: 11 Review of Systems Const All systems reviewed & are unremarkable except as noted in HPI and below Physical Exam Vital Signs: Last Vital Signs Pulse 66 05/04/23 09:20 Resp 16 05/04/23 09:20 BP 138/70 05/04/23 09:20 Pulse Ox 95 05/04/23 09:20 Oxygen Delivery Method Room Air 05/04/23 09:20 BMI result Body Mass Index 29.7 General: Appears afebrile. Alert and oriented. Mood and affect appropriate. Follows and participates in conversation appropriately. Respiratory effort is unlabored. Able to transition from sit to stand unassisted. Ambulates with bilaterally normal heel strike and toe off. Office Procedures Details: Timeout performed prior to procedure. The pump was interrogated and the residual amount of fluid was found to be 5.3 mL. Patient was assisted to the exam table and positioned on stomach.? The area of the intrathecal drug delivery device at right upper buttock was prepped with ChloraPrep. ? The sterile fenestrated drape was applied over the area of the pump. Sterile gloves were worn and of the aspiration system was assembled containing 2in 22gauge non-coring needle, the needle was connected to extension tubing which was connected to a 20cc sterile syringe. The pain pump was then palpated under the skin in the patient's right buttock area. The needle was inserted through the skin into the central plug of the pain pump and clear fluid was aspirated.? A total of 5.2 mL of clear fluid was withdrawn into the syringe and discarded by two staff members. [facility]. Name and on medication syringe verified with patient prior to instillation. The admixture containing Hydromorphone in concentration 1000 micrograms/ml and bupivacaine 30.0 mg/ml was compounded by [facility] pharmacy and arr ived in a 20cc syringe. The syringe was connected to the bacterial filter, and then to the extension tubing. The medication was slowly instilled into the pump with aspirations at 15cc 10cc and 5cc fajardo.? At completion the needle was withdrawn and a Band-Aid was applied to the site. The pump was reprogrammed as below: 30131 - Refill Procedure code (CPT) selection complete Results Reviewed Results Reviewed: No imaging is available for review. Assessment & Plan Assessment & Plan (1) Lumbar back pain with radiculopathy affecting right lower extremity: Code(s): M54.16 - Radiculopathy, lumbar region (2) Sacroiliac joint dysfunction of right side: Code(s): M53.3 - Sacrococcygeal disorders, not elsewhere classified (3) Sacroiliitis: Code(s): M46.1 - Sacroiliitis, not elsewhere classified (4) Disc degeneration, lumbar: Code(s): M51.36 - Other intervertebral disc degeneration, lumbar region (5) Spondylosis of lumbar spine: Code(s): M47.816 - Spondylosis without myelopathy or radiculopathy, lumbar region (6) Chronic pain syndrome: Code(s): G89.4 - Chronic pain syndrome Plan Patient presented to the office today for ITDD medication refill. Tolerated procedure well. Follow up here before 06/21/2023 for next refill, sooner if needed. Scribed for Dr. Villa by Alvarez Lozano, medical insurance coder, on 05/04/2023. I, Dr. Villa, have personally reviewed and agree with the information entered by the scribe. Orders: Orders AMB Intrathecal Drug Delivery System 05/04/23 G89.4 - Chronic pain syndrome, M47.816 - Spondylosis without myelopathy or radiculopathy, lumbar region, M51.36 - Other intervertebral disc degeneration, lumbar region, M46.1 - Sacroiliitis, not elsewhere classified, M53.3 - Sacrococcygeal disorders, not elsewhere classified, M54.16 - Radiculopathy, lumbar region Coding Level of Care Code Procedure Only Diagnoses Lumbar back pain with radiculopathy affecting right lower extremity M54.16 Sacroiliac joint dysfunction of right side M53.3 Sacroiliitis M46.1 Disc degeneration, lumbar M51.36 Spondylosis of lumbar spine M47.816 Chronic pain syndrome G89.4 CPT Codes Intraethecal Drug Delivery System - CPT: 77684 - Refill ([id number]) Comment procedure only
[2023-05-04 09:20] VITALS: BP 138/70; PULSE 66; RESP 16; O2SAT 95; BMI 29.7
== END 2023-05-04 10:27 | disposition home or self-care (01) ==
PROVIDERS: PCP Internal Medicine; Visit Provider Registered Nurse Emergency
DX: M54.16 Radiculopathy, lumbar region (principal); M53.3 Sacrococcygeal disorders, not elsewhere classified; G89.4 Chronic pain syndrome; Z45.1 Encounter for adjustment and management of infusion pump
CPT/HCPCS: 62370

== ENCOUNTER → 2023-05-04 09:10 | Outpatient (BNVA) | payer OTHER, SELFPAY | PROVIDERS: PCP Internal Medicine; Visit Provider Registered Nurse Emergency | DX: M54.16 Radiculopathy, lumbar region (principal); M53.3 Sacrococcygeal disorders, not elsewhere classified; M46.1 Sacroiliitis, not elsewhere classified; M51.36 Other intervertebral disc degeneration, lumbar region; M47.816 Spondylosis without myelopathy or radiculopathy, lumbar region; G89.4 Chronic pain syndrome | CPT/HCPCS: 62370 ==

== ENCOUNTER 2023-05-08 13:32 | Outpatient (REF) | payer OTHER, SELFPAY ==
[2023-05-08 17:09] LABS: Anion Gap 15 (12-20); Blood Urea Nitrogen 9 mg/dL (9-16); Carbon Dioxide 27 mmol/L (22-29); Chloride 105 mmol/L (96-108); Estimated Glomerular Filt Rate > 60; Glucose Random 95 mg/dL (60-115); Iron 96 mcg/dL (30-160); Percent Iron Saturation 31 % (15-50); Potassium 4.9 mmol/L (3.3-5.1); Sodium 142 mmol/L (135-145); Total Iron Binding Capacity 312 mcg/dL (228-428); Unsaturated Iron Binding 216 ug/dL
[2023-05-08 17:26] LABS: Ferritin 61 ng/mL (10-250)
== END 2023-05-08 13:33 | disposition home or self-care (01) ==
LOC: HO.HHCL 13:32
PROVIDERS: Visit Provider Internal Medicine
DX: D64.9 Anemia, unspecified (principal); R60.0 Localized edema
CPT/HCPCS: 36415; 80048; 82728; 83540

== ENCOUNTER 2023-05-09 15:24 | Outpatient (REF) | payer OTHER, SELFPAY ==
--- NOTE | ~2023-05-09 | US_ITS ---
EXAMINATION: US VENOUS ULTRASOUND WITH DOPPLER LOWER EXTREMITY, LEFT CLINICAL INFORMATION: Left leg edema COMPARISON: Lower extremity duplex 01/04/2021 TECHNIQUE: Ultrasound of the deep veins is performed from the hip to the calf with compression sonography and color and pulse Doppler assessment. Spectral analysis with color-flow imaging is performed. FINDINGS: There is normal venous compression and respiratory variation and augmented flow. The visualized common femoral vein, superficial femoral vein, profunda femoral vein, popliteal vein, and the trifurcation region shows no evidence of deep venous thrombosis. There is no significant popliteal fossa cyst. If the patient's symptoms persist, followup ultrasound in 5 days 7 days might be of value to exclude proximal propagation from a non-visualized calf vein. US/US venous duplex LE IMPRESSION: No DVT demonstrated in the left lower extremity.
== END 2023-05-09 15:25 | disposition home or self-care (01) ==
LOC: HO.US 15:24
PROVIDERS: PCP Internal Medicine; Visit Provider Internal Medicine
DX: R60.0 Localized edema (principal)
CPT/HCPCS: 93971

== ENCOUNTER 2023-05-29 14:29 | Outpatient (AMB) | payer OTHER, SELFPAY ==
[2023-05-29 14:29] VITALS: BP 116/62; PULSE 63; O2SAT 97; BMI 29.7
--- NOTE | 2023-05-29 14:29 | MHC.OFFVIS ---
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 Pt states she is having severe pain in both legs. She states she is having worse pain in her right leg. She states she had 2 operations on her right knee about 3 years ago. She states she has swelling in both her feet. Pt states she is having some discoloration in her feet. She states she has compression stockings but she states they dont help. Pt denies any numbness or tingling. She states she ambulates her legs at night and wakes up in the morning with less swelling but it comes right back when she starts walking around her house. 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 She reports that this is been going on since several years. She had a TKA done by Dr. Covington of the right knee. Since that time she reports discomfort pain and swelling. She reports that she has right hip and knee pain the most. She now presents for vascular evaluation regarding the swelling. She reports no prior venous interventions. She has had no prior history of DVT. She is unable to wear compression. [facility] Medical History Acute blood loss anemia Asthma-COPD overlap syndrome Chronic pain syndrome Diabetes Disc degeneration, lumbar MENDENHALL (dyspnea on exertion) GERD (gastroesophageal reflux disease) HPV test positive Hx of carpal tunnel syndrome Hypertension Loose right total knee arthroplasty Lumbar back pain with radiculopathy affecting right lower extremity Osteoarthritis of right knee Overflow stress urinary incontinence in female Presence of dental bridge Primary osteoarthritis of hands, bilateral Pulmonary nodules Sacroiliac joint dysfunction of right side Sacroiliitis Sleep apnea Urge incontinence Surgical History H/O knee surgery History of arthroplasty of right knee History of carpal tunnel release of both wrists History of endometrial ablation History of esophagogastroduodenoscopy (EGD) History of orthopedic surgery History of pubovaginal sling Hx of section Hx of colonoscopy Hx of tubal ligation Previous back surgery Family History Mother Diabetes Arthritis Brother Cancer Paternal Aunt Breast cancer Social History Household Members: None Housing: Apartment Are you a primary acute care assistant to a significant other at home: No Do you presently have visiting nurse 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 home 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) Alcohol intake: former Year quit: 2017 Patient Tobacco Use Status: Current everyday Tobacco user Tobacco use type: Cigarette Cigarettes Per Day: 5 Years Smoked: 2014 Substance Use Type: Crack/Cocaine and Marijuana service: No Current occupational status: disabled Female Reproductive History Menstrual Age of Menarche: 11 Review of Systems Const All systems reviewed & are unremarkable except as noted in HPI and below Reports no additional complaints ENT Reports Normal hearing present Card Denies chest pain, Denies chest pain at rest, Denies chest pain with activity and Denies pedal edema Resp Denies cough GI Denies abdominal pain Musc Denies abnormal gait, Denies muscle cramps and Denies radiating pain into limb Skin/Breast Denies skin ulcer and Denies wounds Neuro Reports Normal hearing present and Denies abnormal gait Psych Reports no additional complaints Physical Exam Vital Signs: Last Vital Signs Pulse 63 05/29/23 14:29 BP 116/62 05/29/23 14:29 Pulse Ox 97 05/29/23 14:29 Oxygen Delivery Method Room Air 05/29/23 14:29 BMI result Body Mass Index 29.7 Const General: cooperative, healthy appearing and comfortable Orientation/consciousness: oriented to person, oriented to place and oriented to time HEENT Head: Yes normal to inspection Neck Neck: Yes normal visual inspection Carotids: no bruits Chest Chest palpation & inspection: normal inspection of the chest Resp Effort & Inspection: normal respiratory effort and able to speak in complete sentences Auscultation: clear to auscultation bilaterally, no crackles, no rales, no rhonchi and no wheezes Cardio Rate: regular rate Rhythm: regular rhythm Heart sounds: S1 normal heart sound present and S2 normal heart sound present Bruits: no carotid bruits Peripheral pulses: Peripheral pulses 2+ throughout GI Inspection: Yes normal to inspection Skin Wounds: no wounds Hair: normal Neuro General: oriented to person, oriented to place and oriented to time Cranial nerves: Yes CN's II-XII intact bilaterally and Yes Normal hearing present Cognition (Neuro): normal cognition Motor exam (neuro): 5/5 motor strength present throughout Extrem Other: venous exam: +2 edema General: No clubbing, No cyanosis and Yes edema Psych Appearance: grossly normal Mental Status: mental status grossly normal Speech and movement: Normal speech and movement present Assessment & Plan Assessment & Plan (1) Varicose veins of right lower extremity with inflammation: Code(s): I83.11 - Varicose veins of right lower extremity with inflammation Plan: In short patient has lower extremity pain. It is unclear what the etiology of this is and she is being seen by pain management. She has had a prior pain pump. She does have palpable bilateral lower extremity pulses. I have taken the liberty of ordering venous insufficiency testing to rule that out. She will follow up with us after testing. Thank you for allowing us to assist in her care Orders: Orders US venous duplex LE BI 1 Week I83.11 - Varicose veins of right lower extremity with inflammation Coding Level of Care Code Est Pt Level 4 (03519) Diagnoses Varicose veins of right lower extremity with inflammation I83.11
== END 2023-05-29 14:58 | disposition home or self-care (01) ==
PROVIDERS: PCP Internal Medicine; Visit Provider Surgery Vascular Surgery
DX: I83.11 Varicose veins of right lower extremity with inflammation (principal)
CPT/HCPCS: 99214

== ENCOUNTER → 2023-05-29 14:29 | Outpatient (BNVA) | payer OTHER, SELFPAY | PROVIDERS: PCP Internal Medicine; Visit Provider Surgery Vascular Surgery | DX: I83.11 Varicose veins of right lower extremity with inflammation (principal) | CPT/HCPCS: 99212 ==

== ENCOUNTER 2023-06-14 10:38 | Outpatient (AMB) | payer OTHER, SELFPAY ==
--- NOTE | 2023-06-14 10:43 | A.OFFVIS_ITS ---
Intake Vital Signs 06/14/23 10:54 Height 5 ft 2 in Weight 162 lb BMI 29.6 BP 130/82 Blood Pressure Location Lt brachial Position Sitting Respiration 19 Pulse 56 Pulse Source Pulse Oximeter Pulse Oximetry (%) 97 Oxygen Delivery Method Room Air Intake Visit Reasons: Pain pump refill Intake Note: Patient comes in for pain pump medication refill. Pain level today is 10/10. Patient mentioned that she has been experiencing swelling on both of her ankles. Allergies No Known Allergies Allergy (Verified 06/19/23 14:19) HPI HPI Comments History of Present Illness Details Norma is a very pleasant 62 year old female who presents to the office today for refill of her ITDD. She reports severe pain all over her body probably related to exacerbation of arthritis, which is presumed to be OA. She reports increased pain in her elbows, wrists and hands. She reports that her lower extremities are swallen, and it limits her mobility. Unlikely it is related to the current intrathecal medication but cannot be completely excluded. I decided today to increase her on demand dose and this way to test if the lower extremities edema is related to intrathecal opioids. If the edema will get worse than we would need to change her intrathecal regimen for the less water soluble opioids. Prior: Norma Fried is very pleasant 62 years old female who is under observation in my office with complains on lower back pain with radiation into bilateral lower extremities.? For the treatment of this condition she was given intrathecal pain pump.? She was in [place] and she lost her consciousness several times there.? She was told that it is before cause of the pump medication.? However she did not do that loss of consciousness in [place].? Unlikely it is a pump action.? Most likely she was just dehydrated because of the high heat in [place]. ? [facility] Medical History Lumbar back pain with radiculopathy affecting right lower extremity Sacroiliac joint dysfunction of right side Sacroiliitis Disc degeneration, lumbar HPV test positive Chronic pain syndrome Acute blood loss anemia Hypertension Osteoarthritis of right knee MENDENHALL (dyspnea on exertion) Presence of dental bridge Sleep apnea Diabetes Overflow stress urinary incontinence in female Urge incontinence Primary osteoarthritis of hands, bilateral Loose right total knee arthroplasty Hx of carpal tunnel syndrome Pulmonary nodules Asthma-COPD overlap syndrome GERD (gastroesophageal reflux disease) Surgical History (Updated 06/12/23 @ 09:37 by Sofia Herman) Hx of tubal ligation H/O knee surgery History of orthopedic surgery History of arthroplasty of right knee History of pubovaginal sling Hx of colonoscopy History of carpal tunnel release of both wrists History of esophagogastroduodenoscopy (EGD) Previous back surgery History of endometrial ablation Hx of section Family History Mother Diabetes Arthritis Brother Cancer Paternal Aunt Breast cancer Social History Household Members: None Housing: Apartment Are you a primary vocational childcare teacher to a significant other at home: No Do you presently have visiting nurse or other home services: 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) Alcohol intake: former Year quit: 2017 Patient Tobacco Use Status: Current everyday Tobacco user Tobacco use type: Cigarette Cigarettes Per Day: 5 Years Smoked: 2014 Substance Use Type: Crack/Cocaine and Marijuana service: No Current occupational status: disabled Female Reproductive History Menstrual Age of Menarche: 11 Review of Systems Const All systems reviewed & are unremarkable except as noted in HPI and below Physical Exam Vital Signs: Last Vital Signs Pulse 56 06/14/23 10:54 Resp 19 06/14/23 10:54 BP 130/82 06/14/23 10:54 Pulse Ox 97 06/14/23 10:54 Oxygen Delivery Method Room Air 06/14/23 10:54 BMI result Body Mass Index 29.6 Const General: cooperative and well developed Orientation/consciousness: patient oriented x3 Limitations: language barrier HEENT Head: Yes atraumatic Mouth: no other ( thrush) Throat: No postnasal drainage Eyes General: appearance normal, both eyes and all related structures Sclerae: sclerae normal EOM: EOMs intact bilaterally Neck Neck: Yes supple Lymphatic: no lymphadenopathy noted Chest Chest palpation & inspection: normal inspection of the chest Resp Effort & Inspection: normal respiratory effort, able to speak in complete sentences, normal respiratory pattern, no audible wheezes, no cough and decreased respiratory effort Cardio Jugular venous distension: no JVD GI Inspection: Yes normal to inspection Neuro General: patient oriented x3 Extrem General: No clubbing, No cyanosis and Yes edema (symmetric b/l LE pitting edema .) Assessment & Plan Assessment & Plan (1) Lumbar back pain with radiculopathy affecting right lower extremity: Code(s): M54.16 - Radiculopathy, lumbar region (2) Sacroiliac joint dysfunction of right side: Code(s): M53.3 - Sacrococcygeal disorders, not elsewhere classified (3) Sacroiliitis: Code(s): M46.1 - Sacroiliitis, not elsewhere classified (4) Disc degeneration, lumbar: Code(s): M51.36 - Other intervertebral disc degeneration, lumbar region (5) Spondylosis of lumbar spine: Code(s): M47.816 - Spondylosis without myelopathy or radiculopathy, lumbar region (6) Chronic pain syndrome: Code(s): G89.4 - Chronic pain syndrome Plan: Intrathecal pump refill. THE PATIENT CAME TODAY IN THE office FOR THE CHANGE OF THE MEDICATION IN her PAIN PUMP. The name and date of were verified and informed consent was obtained for the procedure. ?The pump was interrogated and the residual amount of fluid was found to be 6.7 mL. SHE WAS POSITIONED prone on the bed AND THE AREA OF THE INTRATHECAL PUMP WAS PREPPED WITH CHLORAPREP. The fenestrated drape was sterilely applied over the area of the pump. Sterile gloves were worn and of the aspiration system was assembled containing 2 in 22 gauge noncoring needle, the needle was connected to extension tubing which was connected to the 20 cc sterile syringe. The pain pump was palpated under the skin in the patient's right buttock area. The needle was inserted through the skin and the central plug of the pain pump and fluid was aspirated. The clear fluid was going into the syringe the total amount of the fluid was 6.4 mL .. After that a new batch? of medication was obtained which was containing hydromorphone in concentration 1000 micro g/ml and bupivacaine 30 mg per ml. The admixture was made in 20 cc syringe prepared by [facility] compounding pharmacy. The syringe was connected to the bacterial filter, and then connected to the extension tubing. After that the medication in the syringe was slowly instilled into the pump with aspirations at 15 and 5 cc fajardo.? The pump was reprogrammed for the doses of 65 mg per day with corresponding dose of bupivacaine which was increased from the last time and now it will be 1.2 mg per day and she will be able to receive every 3 hours increased dose of hydromorphone 85 micro g of hydromorphone and 1.9 mg of bupivacaine on demand 5 times in 24 hour period. (6) Chronic pain syndrome: (7) Generalized osteoarthritis: Code(s): M15.9 - Polyosteoarthritis, unspecified (8) Edema of both lower extremities: Code(s): R60.0 - Localized edema Plan 1. I will increase today on demand the dose of the hydromorphone and corresponding bupivacaine to 85 mcg per ml - she will be able to administer it for herself every 3 hours 5 times a day on top of the continuos dose of the hydromorphone 65 mcg a day. If her edema will become worse we would need to turn off her hydromorphone and introduce more lipid soluble opioid such as fentanyl or sufentanyl. Possibility exists that the patient's edema is from other sourses and those have to be investigated as well. Coding Level of Care Code Est Pt Level 3 (02115) Procedure Only Diagnoses Lumbar back pain with radiculopathy affecting right lower extremity M54.16 Sacroiliac joint dysfunction of right side M53.3 Sacroiliitis M46.1 Disc degeneration, lumbar M51.36 Spondylosis of lumbar spine M47.816 Chronic pain syndrome G89.4 Generalized osteoarthritis M15.9 Edema of both lower extremities R60.0
[2023-06-14 10:54] VITALS: BP 130/82; PULSE 56; RESP 19; O2SAT 97; BMI 29.6
== END 2023-06-14 11:13 | disposition home or self-care (01) ==
PROVIDERS: PCP Internal Medicine; Visit Provider Anesthesiology
DX: M54.16 Radiculopathy, lumbar region (principal); M53.3 Sacrococcygeal disorders, not elsewhere classified; M46.1 Sacroiliitis, not elsewhere classified; M51.36 Other intervertebral disc degeneration, lumbar region; M47.816 Spondylosis without myelopathy or radiculopathy, lumbar region; G89.4 Chronic pain syndrome; M15.9 Polyosteoarthritis, unspecified; R60.0 Localized edema; Z45.1 Encounter for adjustment and management of infusion pump
CPT/HCPCS: 62370; 99213

== ENCOUNTER 2023-06-14 13:03 | Outpatient (REF) | payer OTHER, SELFPAY ==
--- NOTE | ~2023-06-14 | US_ITS ---
EXAMINATION: US LOWER EXTREMITY VENOUS (REFLUX EXAM), BILATERAL CLINICAL INDICATION: Chronic venous insufficiency with lower extremity varicose veins and inflammation COMPARISON: None. TECHNIQUE: Color flow triplex imaging and compression Doppler was performed to evaluate both the deep and the superficial systems bilaterally. To evaluate the superficial system, the examination was performed in the upright position. Color-flow Doppler ultrasound and compression ultrasound were utilized. In addition, maneuvers were utilized to demonstrate reflux. FINDINGS: 1. DEEP VENOUS ULTRASOUND OF THE RIGHT LOWER EXTREMITY: Common Femoral Vein: Compressible, normal respiratory variation and augmented flow. Femoral Vein: Compressible, normal color flow and augmentation. Popliteal Vein: Compressible, normal augmentation. Deep Reflux: There is no evidence of reflux in the deep system in either the common femoral vein or the popliteal vein. There is no evidence of a Mullen's cyst. 2. SUPERFICIAL ULTRASOUND WITH DOPPLER OF RIGHT LOWER EXTREMITY: GREAT SAPHENOUS VEIN: Saphenofemoral Junction: 0.6 cm; Reflux: 0 ms Proximal Thigh: 0.6 cm; Reflux: 0 ms Mid Thigh: 0.2 cm; Reflux: 0 ms Above Knee: 0.2 cm; Reflux: 0 ms At Knee: 0.1 cm; Reflux: 0 ms Below Knee: 0.1 cm; Reflux: 0 ms Mid Calf: 0.2 cm; Reflux: 0 ms Ankle: 0.2 cm; Reflux: 0 ms DUPLICATED MEDIAL GREAT SAPHENOUS VEIN: Diameter: None imaged Reflux: NA DUPLICATED LATERAL GREAT SAPHENOUS VEIN: Diameter: None imaged Reflux: NA SMALL SAPHENOUS VEIN: Proximal: 0.1 cm; Reflux: 0 ms Distal: 0.1 cm; Reflux: 0 ms VEIN OF GIACOMINI: Size: NA Reflux: NA PERFORATORS: Location: None imaged Size: NA Reflux: NA VARICOSITIES: Location: None imaged Size: NA Reflux: NA 3. DEEP VENOUS ULTRASOUND OF THE LEFT LOWER EXTREMITY: Common Femoral Vein: Compressible, normal respiratory variation and augmented flow. Femoral Vein: Compressible, normal color flow and augmentation. Popliteal Vein: Compressible, normal augmentation. Deep Reflux: There is no evidence of reflux in the deep system in either the common femoral vein or the popliteal vein. There is no evidence of a Mullen's cyst. 4. SUPERFICIAL ULTRASOUND WITH DOPPLER OF LEFT LOWER EXTREMITY: GREAT SAPHENOUS VEIN: Saphenofemoral Junction: 0.8 cm; Reflux: 0 ms Proximal Thigh: 0.3 cm; Reflux: 0 ms Mid Thigh: 0.2 cm; Reflux: 0 ms Above Knee: 0.2 cm; Reflux: 0 ms At Knee: 0.1 cm; Reflux: 0 ms Below Knee: 0.1 cm; Reflux: 0 ms Mid Calf: 0.1 cm; Reflux: 0 ms Ankle: 0.1 cm; Reflux: 0 ms DUPLICATED MEDIAL GREAT SAPHENOUS VEIN: Diameter: None imaged Reflux: NA DUPLICATED LATERAL GREAT SAPHENOUS VEIN: Diameter: None imaged Reflux: NA SMALL SAPHENOUS VEIN: Proximal: 0.1 cm; Reflux: 0 ms Distal: 0.1 cm; Reflux: 0 ms VEIN OF GIACOMINI: Size: NA Reflux: NA PERFORATORS: Location: None imaged Size: NA Reflux: NA VARICOSITIES: Location: None Imaged Size: NA Reflux: NA US/US venous duplex LE BI IMPRESSION: Right: No significant venous insufficiency or reflux in the great saphenous vein or small saphenous vein. Left: No significant venous insufficiency or reflux in the great saphenous vein or small saphenous vein.
== END 2023-06-14 13:04 | disposition home or self-care (01) ==
LOC: HO.US 13:03
PROVIDERS: PCP Internal Medicine; Visit Provider Surgery Vascular Surgery
DX: I83.11 Varicose veins of right lower extremity with inflammation (principal); M54.16 Radiculopathy, lumbar region; M53.3 Sacrococcygeal disorders, not elsewhere classified; M46.1 Sacroiliitis, not elsewhere classified; M51.36 Other intervertebral disc degeneration, lumbar region; M47.816 Spondylosis without myelopathy or radiculopathy, lumbar region; M15.9 Polyosteoarthritis, unspecified; R60.0 Localized edema
CPT/HCPCS: 62370; 93970; 99212

== ENCOUNTER 2023-06-15 09:19 | Outpatient (AMB) | payer OTHER, SELFPAY ==
--- NOTE | 2023-06-15 09:48 | MHC.OFFVIS ---
Intake Vital Signs 06/15/23 09:50 Height 5 ft 2 in Weight 162 lb 11.218 oz BMI 29.8 BP 135/63 Blood Pressure Location Rt brachial Position Sitting Pulse 55 Intake Visit Reasons: S/p egd/colo Intake Note: Patient underwent EGD/Colonoscopy on 03/30 w/ Dr. Britton. CC: Patient c/o constipation, epigastric pain after eating. She reports she was having a lot of abdominal pain due to constipation and rectal bleeding. After that constipation episode she started having diarrhea she states for a week. Today she reports she has to strain when she is having a BM and she feels like a ball coming out of her rectum. 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 Allergies No Known Allergies Allergy (Verified 06/15/23 09:54) Medication List - Last Reconciled 06/15/23 by Sherri Britton MD albuterol sulfate 90 mcg/actuation 2 puffs PO Q4H PRN 30 days amlodipine 10 mg PO DAILY ascorbic acid (vitamin C) 250 mg PO DAILY atenolol 50 mg PO BEDTIME baclofen 20 mg PO TID bismuth subsalicylate (Bismuth) 2 tabs PO QID 7 days cetirizine 10 mg PO DAILY cholecalciferol (vitamin D3) 50 mcg PO DAILY duloxetine 60 mg PO BID ferrous gluconate 240 mg PO Q OTHER DAY fluticasone propionate 50 mcg/actuation 1 spray intranasal BID [id number] 100-62.5-25 mcg (Trelegy Ellipta) 1 inh inhalation DAILY 30 days ipratropium-albuterol 0.5 mg-3 mg(2.5 mg base)/3 mL 3 mL inhalation Q4-6H PRN 30 days losartan 100 mg PO DAILY lubiprostone (Amitiza) 16 mcg (2 x 8 mcg) PO BID 30 days melatonin 3 mg PO BEDTIME meloxicam 15 mg PO DAILY metformin 500 mg PO DAILY mupirocin 2% topical TID omeprazole 40 mg PO BID 30 days pregabalin 150 mg PO BID 30 days simvastatin 20 mg PO BEDTIME zolpidem 10 mg PO BEDTIME PRN HPI S/p egd/colo HPI Details GI CLINIC VISIT FOR THIS 62-YEAR-OLD HEBREW-SPEAKING FEMALE FOR FU OF ABD PAIN: ? 1. Epigastric pain - R10.13 (Primary) ? 2. Gastroesophageal reflux disease without esophagitis - K21.9 ? 3. Abdominal bloating - R14.0 ? 4. Colon cancer screening - Z12.11 ? IMAGING STUDIES: Oct, [address] SCAN SHOWED: 1. No acute intra-abdominal process seen. 2. Moderate constipation. No obstruction seen. 3. There is a band of soft tissue thickening posterior to the cecum. It is stable to 2019 exam The appendix is not seen. Question appendix. Correlate with clinical exam. 08/06/20 GASTRIC EMPTYING STUDY SHOWED: ? ? ? Retention in the stomach at each time interval was: ? ? ? 1 hour 63% (normal 37%-90%) ? ? ? 2 hours 8% (normal 30%-60%) ? ? ? 3 hours 4% ? ? ? 4 hours (Not Obtained) (normal 0%-10%) IMPRESSION: Normal solid food gastric emptying study. ?08/04/[address] scan showed: ? GASTROINTESTINAL TRACT: There is a duodenal diverticulum adjacent to the pancreas that measures 2 x 2.7 cm. ? Small and large bowel is otherwise unremarkable. ? The stomach is unremarkable. The appendix is not identified. The small and large bowel are unremarkable. ? The appendix is unremarkable. ? ABDOMINAL WALL: No significant hernia is appreciated. ? LYMPH NODES: There are small, small bowel mesentery lymph nodes. No enlarged lymph nodes are seen. ? OSSEOUS STRUCTURES: There are degenerative changes of the spine. ? IMPRESSION: Duodenal diverticulum, otherwise unremarkable exam. ?ENDOSCOPIC PROCEDURES: 10/21/19 COLONOSCOPY SHOWED: ? Ascending Colon A 1.5 to 2 cms flat polyp in the distal AC raised with 2 cc ? of Orise solution and removed with a hot snare ? Transverse Colon - Normal ? Descending Colon Moderate diverticulosis ? Sigmoid Colon Moderate diverticulosis ? Ano-rectum - Moderate internal hemorrhoids ? Colon preparation: Fair despite copious irrigation ? Impression and Post Procedure Diagnosis: ? Colonoscopy Findings: ? One 1.5 to 2 cms hyperplastic polyp removed ? Moderate diverticulosis seen in the left colon ? Moderate hemorrhoids on retroflexed exam. ? Plan: ? Repeat Colonoscopy interval based on path results in 1-2 years due to fair prep. ? Above findings were reviewed with the patient and colon polyps and ? diverticulosis handouts were given in the discharge area ? LETTER SENT ADVISING REPEAT COLONOSCOPY IN 5 YRS - will ask patient to have a stool FIT test checked in the interim due to fair prep. 09/2019 EGD SHOWED: Mild gastritis and gastric biopsies showed mild chronic inactive gastritis and features of reactive gastropathy. No H pylori was detected. Duodenal biopsies were normal. 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 She reports she was having a lot of abdominal pain due to constipation and rectal bleeding. After that constipation episode she started having diarrhea she states for a week. EGD and Colon results reviewed Continues to have constipation Feels a ball comes out and her hemorrhoids came out. Today she reports she has to strain when she is having a BM and she feels like a ball coming out of her rectum. Seen by PCP and prescribed a suppositories Can have intermittent diarrhea sometimes with urgency and bowel accidents Complains of intermittent regurgitation and heartburn ?PAST VISIT: Has been having a lot of diarrhea x 6 weeks and has to use pampers. Notes lower abdominal cramps followed by diarrhea BMs can be watery and sometimes very dark - can have upto 3 BMs a day. Has stopped taking laxatives and medications for constipation Travelled to [place] for 3 weeks. - had diarrhea before she went to [place]. Fell x 2 while in [place] Pt denies fever or chills and complains of sweating. Appetite has been poor. Denies recent antibiotic use Continues to have acid reflux. Notes lower extremity edema for the past 2 weeks Has been having diffuse abdominal pain x 2 weeks. Feels bloated and distended. Pain is 9/10 and is burning. Unable to eat - able to eat small amounts of food Has 2 BMs a day and sometimes urgency. Notes some decrease in pain after she has a BM. Notes sour bile which comes up. Sometimes she has a lot of pain and is unable to have a BM. Has never used an enema. Denies fever chills or sweating Has been chewing some white pills which did not help Also notes diarrhea - Has been having a lot of lower abdominal pain and pain in her lower back. Passed a soft stool - it was painful Burns bloated and gassy and denies nausea or vomiting. Drinks coffee in the morning and has a BM daily. Took a chewable pill and it helped with pain. Continues to have abdominal pain and constipation. Has a lot of pain when she goes to the bathroom. Stomach gets big and swollen Unable to eat since it hurts too much. Takes 2 chewable tablets when she had the pain. Unable to eat until the following day. Has pain 2 times a week and lasts 45 min to an hour. I have been having abdominal pain. Feels completely full after eating a few bites and unable to eat more Feels bloated. Taking a medication twice a day for pain which helps after a while. Gets a lot of constipation and has to push and has hard stools. Has a BM every 2 weeks. I had a lot of abd pain and I have been constipated. Had to sit on the toilet for an hour last night and was unable to have a BM. Took simethicone and had diarrhea. Abd pain improved after she had a BM Has chronic anemia and denies having periods for the past 10 yrs. Pt states When I eat I get pain in my stomach, I feel like my intestines are twisting inside. It feels like my stomach is very full when I eat. The other day I did have an accident, I couldn't make it in time. Usually I don't have diarrhea that was just one time. But mostly I just get the constipation and the pain in my stomach, my belly gets really big. It feels like my stomach is swelling. I have to constantly take the tums but I think I need a stronger medication for that. She is recuperating from her knee replacement surgery. It hurts a lot.? Has to eat very little when she eats. Denies nausea or vomiting. Stomach is bloated, painful and I have a hard time going to the bathroom. Feels like intestines are twisted up. ? GES results were reviewed with the patient. ? If I dont keep taking my medications I will be in pain ? Does fine if she takes her medications. Can have intermittent bloating. ? Denies constipation and has a BM every other day. ? Feeling good - just some pain due to arthritis. ? Sometimes I get some pain in the stomach and unable to eat. ? If I dont take the medication, I get a lot of pain. ? She feels she gets full very fast. ? Has nausea and denies vomiting. ? Sometimes no BM x 3 days - not taking any medication for constipation. ? Has acid reflux at night and takes TUMS with some relief. ? Notes post prandial abdominal pain. ? Has a BM 3-4 times a day and no BM on some days. ? Not taking the Senna since she does not feel constipation. ? Denies any change in her abd pain with BM and passage of gas. ? Not taking any medication for constipation at present. ? Denies past problems with anesthesia [facility] Medical History Lumbar back pain with radiculopathy affecting right lower extremity Sacroiliac joint dysfunction of right side Sacroiliitis Disc degeneration, lumbar HPV test positive Chronic pain syndrome Acute blood loss anemia Hypertension Osteoarthritis of right knee MENDENHALL (dyspnea on exertion) Presence of dental bridge Sleep apnea Diabetes Overflow stress urinary incontinence in female Urge incontinence Primary osteoarthritis of hands, bilateral Loose right total knee arthroplasty Hx of carpal tunnel syndrome Pulmonary nodules Asthma-COPD overlap syndrome GERD (gastroesophageal reflux disease) Surgical History (Updated 06/12/23 @ 09:37 by Sofia Herman) Hx of tubal ligation H/O knee surgery History of orthopedic surgery History of arthroplasty of right knee History of pubovaginal sling Hx of colonoscopy History of carpal tunnel release of both wrists History of esophagogastroduodenoscopy (EGD) Previous back surgery History of endometrial ablation Hx of section Family History Mother Diabetes Arthritis Brother Cancer Paternal Aunt Breast cancer Social History Household Members: None Housing: Apartment Are you a primary care specialist to a significant other at home: No Do you presently have visiting nurse or other home services: Yes ([employer]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) Alcohol intake: former Year quit: 2018 Patient Tobacco Use Status: Current everyday Tobacco user Tobacco use type: Cigarette Cigarettes Per Day: 5 Years Smoked: 2014 Substance Use Type: Crack/Cocaine and Marijuana service: No Current occupational status: disabled Female Reproductive History Menstrual Age of Menarche: 11 Physical Exam Vital Signs: Last Vital Signs Pulse 55 06/15/23 09:50 BP 135/63 06/15/23 09:50 BMI result Body Mass Index 29.8 Const General: healthy appearing and no acute distress Nutritional Appearance: overweight Orientation/consciousness: patient oriented x3 Limitations: language barrier HEENT Head: Yes normal to inspection Ears: hearing grossly normal bilaterally Eyes Sclerae: sclerae normal Pupils: Equal, round and reactive pupils present Neck Neck: Yes normal visual inspection Chest Chest palpation & inspection: normal inspection of the chest Resp Effort & Inspection: normal respiratory effort Auscultation: clear to auscultation bilaterally Cardio Palpation: normal PMI Rate: regular rate Rhythm: regular rhythm Heart sounds: S1 normal heart sound present, S2 normal heart sound present and no murmurs GI Palpation (GI): Soft to palpation, nontender and No hepatosplenomegaly present Auscultation: normal bowel sounds Rectal Exam - Female: deferred Skin General skin exam: no rashes or lesions noted Neuro General: patient oriented x3, gait normal and moves all extremities Cranial nerves: Yes Equal, round and reactive pupils present Psych Appearance: grossly normal Mental Status: mental status grossly normal Assessment & Plan Assessment & Plan (1) Epigastric pain: Code(s): R10.13 - Epigastric pain (2) Diarrhea: Code(s): R19.7 - Diarrhea, unspecified (3) Colon cancer screening: Comment: 10/11/19 Colonoscopy showed One 1.5 to 2 cms hyperplastic polyp removed, Moderate diverticulosis seen in the left colon and moderate hemorrhoids on retroflexed exam. advised repeat colon in 5 yrs - 02/2020 A stool FIT test was checked due to fair prep and was negative. Code(s): Z12.11 - Encounter for screening for malignant neoplasm of colon (4) Duodenal diverticulum: Code(s): K57.10 - Diverticulosis of small intestine without perforation or abscess without bleeding (5) Abdominal bloating: Code(s): R14.0 - Abdominal distension (gaseous) (6) Chronic constipation: Code(s): K59.09 - Other constipation (7) GERD (gastroesophageal reflux disease): Code(s): K21.9 - Gastro-esophageal reflux disease without esophagitis (8) Anemia: Code(s): D64.9 - Anemia, unspecified Plan 62-year-old Malay-speaking female with hypertension, depression, chronic obstructive pulmonary disease (COPD), erosive osteoarthritis of hands, mild lumbar spondylosis, b/l carpal tunnel syndrome, Bilateral knee OA, Asthma, Constipation, Dyspepsia, microscopic hematuria followed in GI for GERD, abdominal pain with bloating and colon cancer screening - Abdominal pain and bloating is likely related to chronic constipation or related to duodenal diverticulum. No pancreatic or biliary source found on recent CT scan. Patient complains of early satiety and a gastric emptying study was normal. Patient was prescribed Linzess for constipation during her last visit and denies getting this medication from the pharmacy. Linzess was prescribed again and I requested Phoebe GI RN, to check with the pharmacy to confirm it is available for the patient Pt denies improvement in constipation with Linzess - pt was switched to Lubiprostone 16 mcg twice daily for constipation. Oct [address] scan was performed and results as noted above. 03/30/23 EGD (evaluation of abd pain and FU of duodenal diverticulum) and Colon (abd pain, diarrhea, anemia and fair prep on past colon) performed results as noted above 06/15/23 patient was prescribed MiraLax, senna and Amitiza for constipation FU in 3 months Orders: Orders Ferritin Today D64.9 - Anemia, unspecified C Reactive Protein Today D64.9 - Anemia, unspecified Complete Blood Count Auto Diff Today D64.9 - Anemia, unspecified TSH reflex Free T4 Today D64.9 - Anemia, unspecified Medications: New polyethylene glycol 3350 (Miralax) 17 grams PO DAILY 60 days 1,020 grams 3RF K59.09 - Other constipation sennosides-docusate sodium 8.6-50 mg (Senna Plus) 2 tab-caps (2 x 8.6-50 mg) PO BEDTIME 60 days 120 caps 1RF K59.09 - Other constipation hydrocortisone 2.5% 1 appl [place] BID-QID 30 days PRN 30 grams 1RF hemorrhoids Refilled lubiprostone (Amitiza) 16 mcg (2 x 8 mcg) PO BID 30 days 120 caps 3RF K59.09 - Other constipation Coding Level of Care Code Est Pt Level 4 (22353) Diagnoses Epigastric pain R10.13 Diarrhea R19.7 Colon cancer screening Z12.11 Duodenal diverticulum K57.10 Abdominal bloating R14.0 Chronic constipation K59.09 GERD (gastroesophageal reflux disease) K21.9 Anemia D64.9 Time Spent (min) 24
[2023-06-15 09:50] VITALS: BP 135/63; PULSE 55; BMI 29.8
== END 2023-06-15 10:39 | disposition home or self-care (01) ==
PROVIDERS: PCP Internal Medicine; Visit Provider Internal Medicine Gastroenterology
DX: R10.13 Epigastric pain (principal); R19.7 Diarrhea, unspecified; Z12.11 Encounter for screening for malignant neoplasm of colon; K57.10 Diverticulosis of small intestine without perforation or abscess without bleeding; R14.0 Abdominal distension (gaseous); K59.09 Other constipation; K21.9 Gastro-esophageal reflux disease without esophagitis; D64.9 Anemia, unspecified
CPT/HCPCS: 99214

== ENCOUNTER → 2023-06-15 09:19 | Outpatient (BNVA) | payer OTHER, SELFPAY | PROVIDERS: PCP Internal Medicine; Visit Provider Internal Medicine Gastroenterology | DX: R10.13 Epigastric pain (principal); R19.7 Diarrhea, unspecified; K57.10 Diverticulosis of small intestine without perforation or abscess without bleeding; R14.0 Abdominal distension (gaseous); K59.09 Other constipation; K21.9 Gastro-esophageal reflux disease without esophagitis; D64.9 Anemia, unspecified; Z98.890 Other specified postprocedural states | CPT/HCPCS: 99212 ==

== ENCOUNTER 2023-06-19 14:02 | Outpatient (REF) | payer OTHER, SELFPAY | END 2023-06-19 14:03 | disposition home or self-care (01) | LOC: HO.LNP 14:02 | PROVIDERS: PCP Internal Medicine; Visit Provider Obstetrics & Gynecology | DX: R87.610 Atypical squamous cells of undetermined significance on cytologic smear of cervix (ASC-US) (principal); R87.810 Cervical high risk human papillomavirus (HPV) DNA test positive | CPT/HCPCS: 57454; 88305; 88342; 88360 ==

== ENCOUNTER 2023-06-19 14:02 | Outpatient (AMB) | payer OTHER, SELFPAY ==
--- NOTE | 2023-06-19 14:11 | MHC.OFFVIS ---
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 Name: Ana FUNEZ Information Interpreted: non-clinical & clinical Public Health Aides Teacher: Public Health Aides Teacher Present (Ana FUNEZ) Accompanied by: Self / Same As Patient Allergies No Known Allergies Allergy (Verified 06/19/23 14:19) Post menopausal: Yes PFSH Medical History Lumbar back pain with radiculopathy affecting right lower extremity Sacroiliac joint dysfunction of right side Sacroiliitis Disc degeneration, lumbar HPV test positive Chronic pain syndrome Acute blood loss anemia Hypertension Osteoarthritis of right knee MENDENHALL (dyspnea on exertion) Presence of dental bridge Sleep apnea Diabetes Overflow stress urinary incontinence in female Urge incontinence Primary osteoarthritis of hands, bilateral Loose right total knee arthroplasty Hx of carpal tunnel syndrome Pulmonary nodules Asthma-COPD overlap syndrome GERD (gastroesophageal reflux disease) Surgical History (Updated 06/12/23 @ 09:37 by Sofia Herman) Hx of tubal ligation H/O knee surgery History of orthopedic surgery History of arthroplasty of right knee History of pubovaginal sling Hx of colonoscopy History of carpal tunnel release of both wrists History of esophagogastroduodenoscopy (EGD) Previous back surgery History of endometrial ablation Hx of section Family History Mother Diabetes Arthritis Brother Cancer Paternal Aunt Breast cancer Social History Household Members: None Housing: Apartment Are you a primary childcare worker to a significant other at home: No Do you presently have visiting 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) Alcohol intake: former Year quit: 2018 Patient Tobacco Use Status: Current everyday Tobacco user Tobacco use type: Cigarette Cigarettes Per Day: 5 Years Smoked: 2014 Substance Use Type: Crack/Cocaine and Marijuana service: No Current occupational status: disabled Female Reproductive History Menstrual Age of Menarche: 11 Physical Exam Vital Signs: Last Vital Signs BP 136/78 06/19/23 14:12 BMI result Body Mass Index 29.4 Office Procedures Colposcopy Before the procedure was started discussed with the patient the procedure, alternatives & all the risks associated with the procedure (bleeding, infection, injury to vagina, bladder, vessels, possible need for transfusion with all its risks) then patient signed the consent Pap smear = ascus/HPV positive Speculum inserted, acetic acid used Colposcopy done Transformation zone seen, acetowhite lesions identified at 12 o?clock, cervical biopsies taken from 12 o?clock, ECC done afterwards. Vaginoscopy of the upper vagina showed no evidence of any aceto-white lesions Monsel solution used for hemostasis. The patient tolerated well . At the end the patient was instructed to call if temp>100.4, abdominal pain, n/v, bleeding; The patient was given the following instructions: nothing per vagina, no intercourse or bath tub use. All questions answered the patient verbalized understanding. Instructed the patient to make an appointment in 2 weeks for follow-up This note was generated with a voice recognition program. Some errors may have been overlooked during the review of this note. Sometimes these errors may affect the content or meaning of a given sentence. 09774-Peuvwftsl of cervix including upper vagina with biopsy and ECC Procedure code (CPT) selection complete Assessment & Plan Assessment & Plan (1) ASCUS with positive high risk HPV cervical: Code(s): R87.610 - Atypical squamous cells of undetermined significance on cytologic smear of cervix (ASC-US); R87.810 - Cervical high risk human papillomavirus (HPV) DNA test positive Orders: Orders AMB Colposcopy Today R87.610 - Atypical squamous cells of undetermined significance on cytologic smear of cervix (ASC-US), R87.810 - Cervical high risk human papillomavirus (HPV) DNA test positive Coding Level of Care Code Procedure Only Diagnoses ASCUS with positive high risk HPV cervical R87.610; R87.810 CPT Codes Colposcopy - CPT: 45494-Hhmchitqs of cervix including upper vagina with biopsy and ECC ([id number])
[2023-06-19 14:12] VITALS: BP 136/78; BMI 29.4
== END 2023-06-19 14:41 | disposition home or self-care (01) ==
PROVIDERS: PCP Internal Medicine; Visit Provider Obstetrics & Gynecology
DX: R87.610 Atypical squamous cells of undetermined significance on cytologic smear of cervix (ASC-US) (principal); R87.810 Cervical high risk human papillomavirus (HPV) DNA test positive
CPT/HCPCS: 57454

== ENCOUNTER 2023-06-27 14:10 | Outpatient (REF) | payer OTHER, SELFPAY | END 2023-06-27 14:11 | disposition home or self-care (01) | LOC: HO.MAMMO 14:10 | PROVIDERS: Absent Provider Obstetrics & Gynecology; PCP Internal Medicine; Visit Provider Internal Medicine | DX: Z12.31 Encounter for screening mammogram for malignant neoplasm of breast (principal) | CPT/HCPCS: 77063; 77067 ==

== ENCOUNTER → 2023-06-27 14:20 | Outpatient (BNV) | payer OTHER, SELFPAY | PROVIDERS: Absent Provider Obstetrics & Gynecology; PCP Internal Medicine; Visit Provider Radiology Diagnostic Radiology | DX: Z12.31 Encounter for screening mammogram for malignant neoplasm of breast (principal) | CPT/HCPCS: 77063; 77067 ==

== ENCOUNTER 2023-07-19 10:25 | Outpatient (AMB) | payer OTHER, SELFPAY ==
--- NOTE | 2023-07-19 10:33 | A.OFFVIS_ITS ---
Intake Vital Signs 07/19/23 10:34 Height 5 ft 2 in Weight 161 lb 4 oz BMI 29.5 BP 138/63 Blood Pressure Location Rt brachial Position Sitting Respiration 18 Pulse 58 Pulse Source Pulse Oximeter Pulse Oximetry (%) 97 Oxygen Delivery Method Room Air Intake Visit Reasons: ITDD REFILL Allergies No Known Allergies Allergy (Verified 07/19/23 10:34) PFSH Medical History Lumbar back pain with radiculopathy affecting right lower extremity Sacroiliac joint dysfunction of right side Sacroiliitis Disc degeneration, lumbar HPV test positive Chronic pain syndrome Acute blood loss anemia Hypertension Osteoarthritis of right knee MENDENHALL (dyspnea on exertion) Presence of dental bridge Sleep apnea Diabetes Overflow stress urinary incontinence in female Urge incontinence Primary osteoarthritis of hands, bilateral Loose right total knee arthroplasty Hx of carpal tunnel syndrome Pulmonary nodules Asthma-COPD overlap syndrome GERD (gastroesophageal reflux disease) Surgical History (Updated 06/12/23 @ 09:37 by Sofia Herman) Hx of tubal ligation H/O knee surgery History of orthopedic surgery History of arthroplasty of right knee History of pubovaginal sling Hx of colonoscopy History of carpal tunnel release of both wrists History of esophagogastroduodenoscopy (EGD) Previous back surgery History of endometrial ablation Hx of section Family History Mother Diabetes Arthritis Brother Cancer Paternal Aunt Breast cancer Social History Household Members: None Housing: Apartment Are you a primary respiratory care faculty to a significant other at home: No Do you presently have visiting nurse or 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 home 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) Alcohol intake: former Year quit: 2018 Patient Tobacco Use Status: Current everyday Tobacco user Tobacco use type: Cigarette Cigarettes Per Day: 5 Years Smoked: 2014 Substance Use Type: Crack/Cocaine and Marijuana service: No Current occupational status: disabled Female Reproductive History Menstrual Age of Menarche: 11 Physical Exam Vital Signs: Last Vital Signs Pulse 58 07/19/23 10:34 Resp 18 07/19/23 10:34 BP 138/63 07/19/23 10:34 Pulse Ox 97 07/19/23 10:34 Oxygen Delivery Method Room Air 07/19/23 10:34 BMI result Body Mass Index 29.5 Assessment & Plan Assessment & Plan (1) Lumbar back pain with radiculopathy affecting right lower extremity: Code(s): M54.16 - Radiculopathy, lumbar region (2) Sacroiliac joint dysfunction of right side: Code(s): M53.3 - Sacrococcygeal disorders, not elsewhere classified (3) Sacroiliitis: Code(s): M46.1 - Sacroiliitis, not elsewhere classified (4) Disc degeneration, lumbar: Code(s): M51.36 - Other intervertebral disc degeneration, lumbar region (5) Spondylosis of lumbar spine: Code(s): M47.816 - Spondylosis without myelopathy or radiculopathy, lumbar region (6) Chronic pain syndrome: Code(s): G89.4 - Chronic pain syndrome Plan: Intrathecal pump refill. THE PATIENT CAME TODAY IN THE office FOR THE CHANGE OF THE MEDICATION IN her PAIN PUMP. The name and date of were verified and informed consent was obtained for the procedure. ?The pump was interrogated and the residual amount of fluid was found to be 5.2 mL. SHE WAS POSITIONED prone on the bed AND THE AREA OF THE INTRATHECAL PUMP WAS PREPPED WITH CHLORAPREP. The fenestrated drape was sterilely applied over the area of the pump. Sterile gloves were worn and of the aspiration system was asse mbled containing 2 in 22 gauge noncoring needle, the needle was connected to extension tubing which was connected to the 20 cc sterile syringe. The pain pump was palpated under the skin in the patient's right buttock area. The needle was inserted through the skin and the central plug of the pain pump and fluid was aspirated. The clear fluid was going into the syringe the total amount of the fluid was 5.4 mL .. After that a new batch? of medication was obtained which was containing hydromorphone in concentration 1000 micro g/ml and bupivacaine 30 mg per ml. The admixture was made in 20 cc syringe prepared by [facility] compounding pharmacy. The syringe was connected to the bacterial filter, and then connected to the extension tubing. After that the medication in the syringe was slowly instilled into the pump with aspirations at 15 and 5 cc fajardo.? The pump was reprogrammed for the doses of 65 mg per day with corresponding dose of bupivacaine which was increased from the last time and now it will be 1.2 mg per day and she will be able to receive every 3 hours increased dose of hydromorphone 85 micro g of hydromorphone and 1.9 mg of bupivacaine on demand 5 times in 24 hour period. (6) Chronic pain syndrome: (7) Generalized osteoarthritis: Code(s): M15.9 - Polyosteoarthritis, unspecified (8) Edema of both lower extremities: Code(s): R60.0 - Localized edema Coding Level of Care Code Procedure Only Diagnoses Lumbar back pain with radiculopathy affecting right lower extremity M54.16 Sacroiliac joint dysfunction of right side M53.3 Sacroiliitis M46.1 Disc degeneration, lumbar M51.36 Spondylosis of lumbar spine M47.816 Chronic pain syndrome G89.4 Generalized osteoarthritis M15.9 Edema of both lower extremities R60.0
[2023-07-19 10:34] VITALS: BP 138/63; PULSE 58; RESP 18; O2SAT 97; BMI 29.5
== END 2023-07-19 11:08 | disposition home or self-care (01) ==
PROVIDERS: PCP Internal Medicine; Visit Provider Anesthesiology
DX: Z45.1 Encounter for adjustment and management of infusion pump (principal); M54.16 Radiculopathy, lumbar region; M53.3 Sacrococcygeal disorders, not elsewhere classified; M46.1 Sacroiliitis, not elsewhere classified; R60.0 Localized edema; M51.36 Other intervertebral disc degeneration, lumbar region; M47.816 Spondylosis without myelopathy or radiculopathy, lumbar region; G89.4 Chronic pain syndrome; M15.9 Polyosteoarthritis, unspecified
CPT/HCPCS: 62370

== ENCOUNTER → 2023-07-19 10:25 | Outpatient (BNVA) | payer OTHER, SELFPAY | PROVIDERS: PCP Internal Medicine; Visit Provider Anesthesiology | DX: Z45.1 Encounter for adjustment and management of infusion pump (principal); G89.4 Chronic pain syndrome; M47.26 Other spondylosis with radiculopathy, lumbar region; M53.3 Sacrococcygeal disorders, not elsewhere classified; M46.1 Sacroiliitis, not elsewhere classified; M51.36 Other intervertebral disc degeneration, lumbar region | CPT/HCPCS: 62370 ==

== ENCOUNTER 2023-08-13 13:21 | Outpatient (AMB) | payer OTHER, SELFPAY ==
--- NOTE | 2023-08-13 13:22 | MHC.OFFVIS ---
Intake Vital Signs 08/13/23 13:52 Height 5 ft 2 in Weight 161 lb BMI 29.4 BP 130/60 Blood Pressure Location Lt brachial Position Sitting Respiration 14 Pulse 65 Pulse Source Pulse Oximeter Pulse Oximetry (%) 97 Oxygen Delivery Method Room Air Intake Visit Reasons: ITDD REFILL/confirmed Allergies No Known Allergies Allergy (Verified 07/19/23 10:34) HPI HPI Comments History of Present Illness Details Norma is a very pleasant 62 year old female who presents to the office today for refill of her ITDD. She reports severe pain all over her body probably related to exacerbation of arthritis, which is presumed to be OA. She reports that she feels now better since last time the doses were slightly increased. Today 08/13/2023 pump was red and refilled, the doses kept the same. She is visiting us once in 40 days, unfortunately her bupivacaine is maximal concentration now and we have to keep it this way. Prior: Norma Fried is very pleasant 62 years old female who is under observation in my office with complains on lower back pain with radiation into bilateral lower extremities.? For the treatment of this condition she was given intrathecal pain pump.? She was in [place] and she lost her consciousness several times there.? She was told that it is before cause of the pump medication.? However she did not do that loss of consciousness in [place].? Unlikely it is a pump action.? Most likely she was just dehydrated because of the high heat in [place]. ? [facility] Medical History Lumbar back pain with radiculopathy affecting right lower extremity Sacroiliac joint dysfunction of right side Sacroiliitis Disc degeneration, lumbar HPV test positive Chronic pain syndrome Acute blood loss anemia Hypertension Osteoarthritis of right knee MENDENHALL (dyspnea on exertion) Presence of dental bridge Sleep apnea Diabetes Overflow stress urinary incontinence in female Urge incontinence Primary osteoarthritis of hands, bilateral Loose right total knee arthroplasty Hx of carpal tunnel syndrome Pulmonary nodules Asthma-COPD overlap syndrome GERD (gastroesophageal reflux disease) Surgical History (Updated 06/12/23 @ 09:37 by Sofia Herman) Hx of tubal ligation H/O knee surgery History of orthopedic surgery History of arthroplasty of right knee History of pubovaginal sling Hx of colonoscopy History of carpal tunnel release of both wrists History of esophagogastroduodenoscopy (EGD) Previous back surgery History of endometrial ablation Hx of section Family History Mother Diabetes Arthritis Brother Cancer Paternal Aunt Breast cancer Social History Household Members: None Housing: Apartment Are you a primary complex care nurse practitioner to a significant other at home: No Do you presently have visiting nurse or other home services: 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) Alcohol intake: former Year quit: 2017 Patient Tobacco Use Status: Current everyday Tobacco user Tobacco use type: Cigarette Cigarettes Per Day: 5 Years Smoked: 2014 Substance Use Type: Crack/Cocaine and Marijuana service: No Current occupational status: disabled Female Reproductive History Menstrual Age of Menarche: 11 Review of Systems Const All systems reviewed & are unremarkable except as noted in HPI and below Physical Exam Vital Signs: Last Vital Signs Pulse 65 08/13/23 13:52 Resp 14 08/13/23 13:52 BP 130/60 08/13/23 13:52 Pulse Ox 97 08/13/23 13:52 Oxygen Delivery Method Room Air 08/13/23 13:52 BMI result Body Mass Index 29.4 Const General: cooperative and well developed Orientation/consciousness: patient oriented x3 Limitations: language barrier HEENT Head: Yes atraumatic Mouth: no other ( thrush) Throat: No postnasal drainage Eyes General: appearance normal, both eyes and all related structures Sclerae: sclerae normal EOM: EOMs intact bilaterally Neck Neck: Yes supple Lymphatic: no lymphadenopathy noted Chest Chest palpation & inspection: normal inspection of the chest Resp Effort & Inspection: normal respiratory effort, able to speak in complete sentences, normal respiratory pattern, no audible wheezes, no cough and decreased respiratory effort Cardio Jugular venous distension: no JVD GI Inspection: Yes normal to inspection Neuro General: patient oriented x3 Extrem General: No clubbing, No cyanosis and Yes edema (symmetric b/l LE pitting edema.) Assessment & Plan Assessment & Plan (1) Lumbar back pain with radiculopathy affecting right lower extremity: Code(s): M54.16 - Radiculopathy, lumbar region (2) Sacroiliac joint dysfunction of right side: Code(s): M53.3 - Sacrococcygeal disorders, not elsewhere classified (3) Sacroiliitis: Code(s): M46.1 - Sacroiliitis, not elsewhere classified (4) Disc degeneration, lumbar: Code(s): M51.36 - Other intervertebral disc degeneration, lumbar region (5) Spondylosis of lumbar spine: Code(s): M47.816 - Spondylosis without myelopathy or radiculopathy, lumbar region (6) Chronic pain syndrome: Code(s): G89.4 - Chronic pain syndrome Plan: Intrathecal pump refill. THE PATIENT CAME TODAY IN THE office FOR THE CHANGE OF THE MEDICATION IN her PAIN PUMP. The name and date of were verified and informed consent was obtained for the procedure. ?The pump was interrogated and the residual amount of fluid was found to be 9.2 mL. SHE WAS POSITIONED prone on the bed AND THE AREA OF THE INTRATHECAL PUMP WAS PREPPED WITH CHLORAPREP. The fenestrated drape was sterilely applied over the area of the pump. Sterile gloves were worn and of the aspiration system was assembled containing 2 in 22 gauge noncoring needle, the needle was connected to extension tubing which was connected to the 20 cc sterile syringe. The pain pump was palpated under the skin in the patient's right buttock area. The needle was inserted through the skin and the central plug of the pain pump and fluid was aspirated. The clear fluid was going into the syringe the total amount of the fluid was 9.2 mL .. After that a new batch? of medication was obtained which was containing hydromorphone in concentration 1000 micro g/ml and bupivacaine 30 mg per ml. The admixture was made in 20 cc syringe prepared by [facility] compounding pharmacy. The syringe was connected to the bacterial filter, and then connected to the extension tubing. After that the medication in the syringe was slowly instilled into the pump with aspirations at 15 and 5 cc fajardo.? The pump was reprogrammed for the doses of 65 mg per day with corresponding dose of bupivacaine which was increased from the last time and now it will be 1.2 mg per day and she will be able to receive every 3 hours increased dose of hydromorphone 85 micro g of hydromorphone and 1.9 mg of bupivacaine on demand 5 times in 24 hour period. (6) Chronic pain syndrome: (7) Generalized osteoarthritis: Code(s): M15.9 - Polyosteoarthritis, unspecified (8) Edema of both lower extremities: Code(s): R60.0 - Localized edema Coding Level of Care Code Est Pt Level 3 (23890) Procedure Only Diagnoses Lumbar back pain with radiculopathy affecting right lower extremity M54.16 Sacroiliac joint dysfunction of right side M53.3 Sacroiliitis M46.1 Disc degeneration, lumbar M51.36 Spondylosis of lumbar spine M47.816 Chronic pain syndrome G89.4 Generalized osteoarthritis M15.9 Edema of both lower extremities R60.0
[2023-08-13 13:52] VITALS: BP 130/60; PULSE 65; RESP 14; O2SAT 97; BMI 29.4
== END 2023-08-13 13:43 | disposition home or self-care (01) ==
PROVIDERS: PCP Internal Medicine; Visit Provider Anesthesiology
DX: G89.4 Chronic pain syndrome (principal); M54.16 Radiculopathy, lumbar region; M53.3 Sacrococcygeal disorders, not elsewhere classified; Z45.1 Encounter for adjustment and management of infusion pump; M46.1 Sacroiliitis, not elsewhere classified; M51.36 Other intervertebral disc degeneration, lumbar region; M47.816 Spondylosis without myelopathy or radiculopathy, lumbar region; M15.9 Polyosteoarthritis, unspecified; R60.0 Localized edema
CPT/HCPCS: 62370; 99213

== ENCOUNTER → 2023-08-13 13:21 | Outpatient (BNVA) | payer OTHER, SELFPAY | PROVIDERS: PCP Internal Medicine; Visit Provider Anesthesiology | DX: Z45.1 Encounter for adjustment and management of infusion pump (principal); M54.16 Radiculopathy, lumbar region; M46.1 Sacroiliitis, not elsewhere classified; M53.3 Sacrococcygeal disorders, not elsewhere classified; M51.36 Other intervertebral disc degeneration, lumbar region; M47.816 Spondylosis without myelopathy or radiculopathy, lumbar region; G89.4 Chronic pain syndrome; M15.9 Polyosteoarthritis, unspecified | CPT/HCPCS: 62370; 99212 ==

== ENCOUNTER 2023-08-15 13:38 | Outpatient (AMB) | payer OTHER, SELFPAY ==
--- NOTE | 2023-08-15 13:58 | A.OFFVIS_ITS ---
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 The patient is doing well with no complaints. The pathology showed the following: A. Endocervix, curettage: Fragments of squamous mucosa with atrophy and reactive squamous epithelial changes; negative for squamous intraepithelial lesion. B. Cervix, 12 o'clock, biopsy: Squamous mucosa with atrophy and reactive squamous epithelial changes; negative for squamous intraepithelial lesion. COMMENT: The atypical cells noted on the patient's previous Pap smear ([id number];ASCUS; HPV+) may be represented by the reactive epithelial changes seen above PFSH Medical History Lumbar back pain with radiculopathy affecting right lower extremity Sacroiliac joint dysfunction of right side Sacroiliitis Disc degeneration, lumbar HPV test positive Chronic pain syndrome Acute blood loss anemia Hypertension Osteoarthritis of right knee MENDENHALL (dyspnea on exertion) Presence of dental bridge Sleep apnea Diabetes Overflow stress urinary incontinence in female Urge incontinence Primary osteoarthritis of hands, bilateral Loose right total knee arthroplasty Hx of carpal tunnel syndrome Pulmonary nodules Asthma-COPD overlap syndrome GERD (gastroesophageal reflux disease) Surgical History Hx of tubal ligation H/O knee surgery History of orthopedic surgery History of arthroplasty of right knee History of pubovaginal sling Hx of colonoscopy History of carpal tunnel release of both wrists History of esophagogastroduodenoscopy (EGD) Previous back surgery History of endometrial ablation Hx of section Family History Mother Diabetes Arthritis Brother Cancer Paternal Aunt Breast cancer Social History Household Members: None Housing: Apartment Are you a primary child care lead teacher to a significant other at home: No Do you presently have visiting nurse or other home services: Yes ([employer]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) Alcohol intake: former Year quit: 2018 Patient Tobacco Use Status: Current everyday Tobacco user Tobacco use type: Cigarette Cigarettes Per Day: 5 Years Smoked: 2014 Substance Use Type: Crack/Cocaine and Marijuana service: No Current occupational status: disabled Female Reproductive History Menstrual Age of Menarche: 11 Review of Systems Const All systems reviewed & are unremarkable except as noted in HPI and below Reports as per HPI and Reports no additional complaints GI Reports no additional complaints Reports no additional complaints Assessment & Plan Assessment & Plan (1) ASCUS with positive high risk HPV cervical: Code(s): R87.610 - Atypical squamous cells of undetermined significance on cytologic smear of cervix (ASC-US); R87.810 - Cervical high risk human papillomavirus (HPV) DNA test positive Plan: Discussed with the patient the pathology results of the colposcopy biopsies & endocervical curettage ( negative). Discussed with the patient the sensitivity specificity, positive and negative predictive value in detecting cervical cancer in addition discussed the regression, persistence and progression rates. Recommended co-testing in 12 months, if cytology and or HPV are abnormal will proceed was colposcopy biopsy and endocervical curettage. Instructions given to the patient to schedule a co test appointment in 1 year. All questions answered the patient verbalized understanding. Coding Level of Care Code Est Pt Level 3 (56669) Diagnoses ASCUS with positive high risk HPV cervical R87.610; R87.810
[2023-08-15 14:00] VITALS: BP 120/78; BMI 29.4
== END 2023-08-15 14:09 | disposition home or self-care (01) ==
LOC: HO.HWS 13:38
PROVIDERS: PCP Internal Medicine; Visit Provider Obstetrics & Gynecology
DX: R87.610 Atypical squamous cells of undetermined significance on cytologic smear of cervix (ASC-US) (principal); R87.810 Cervical high risk human papillomavirus (HPV) DNA test positive
CPT/HCPCS: 99213

== ENCOUNTER → 2023-08-15 13:38 | Outpatient (BNVA) | payer OTHER, SELFPAY | PROVIDERS: PCP Internal Medicine; Visit Provider Obstetrics & Gynecology | DX: R87.610 Atypical squamous cells of undetermined significance on cytologic smear of cervix (ASC-US) (principal); R87.810 Cervical high risk human papillomavirus (HPV) DNA test positive | CPT/HCPCS: 99212 ==

== ENCOUNTER 2023-09-19 13:46 | Outpatient (AMB) | payer OTHER, SELFPAY ==
[2023-09-19 14:11] VITALS: BP 138/64; PULSE 67; RESP 18; O2SAT 97; BMI 29.3
--- NOTE | 2023-09-19 14:11 | A.OFFVIS_ITS ---
Intake Vital Signs 09/19/23 14:11 Height 5 ft 2 in Weight 160 lb BMI 29.3 BP 138/64 Blood Pressure Location Lt brachial Position Sitting Respiration 18 Pulse 67 Pulse Source Pulse Oximeter Pulse Oximetry (%) 97 Oxygen Delivery Method Room Air Intake Visit Reasons: ITDD REFILL/no dialtone Intake Note: patient comes in for pain pump medication refill. She reports pain level of 10/10, Allergies No Known Allergies Allergy (Verified 09/19/23 14:12) HPI HPI Comments History of Present Illness Details Norma is a very pleasant 62 year old female who presents to the office today for refill of her ITDD. She reports today severe pain in the back with radiation of the pain into mostly right flank without radiation into the lower extremities. She reports that this pain is new and started 2 weeks ago and this pain started when she tried bend over forward in her shower. She requests me to send her for the MRI of the lumbar spine. I will introduce the diagnosis of vertebrobasilar pain syndrome and I will schedule her for MRI of the lumbar spine. The pain pump refill is as below. Prior: Norma Fried is very pleasant 62 years old female who is under observation in my office with complains on lower back pain with radiation into bilateral lower extremities.? For the treatment of this condition she was given intrathecal pain pump.? She was in [place] and she lost her consciousness several times there.? She was told that it is before cause of the pump medication.? However she did not do that loss of consciousness in [place].? Unlikely it is a pump action.? Most likely she was just dehydrated because of the high heat in [place]. ? [facility] Medical History Lumbar back pain with radiculopathy affecting right lower extremity Sacroiliac joint dysfunction of right side Sacroiliitis Disc degeneration, lumbar HPV test positive Chronic pain syndrome Acute blood loss anemia Hypertension Osteoarthritis of right knee MENDENHALL (dyspnea on exertion) Presence of dental bridge Sleep apnea Diabetes Overflow stress urinary incontinence in female Urge incontinence Primary osteoarthritis of hands, bilateral Loose right total knee arthroplasty Hx of carpal tunnel syndrome Pulmonary nodules Asthma-COPD overlap syndrome GERD (gastroesophageal reflux disease) Surgical History Hx of tubal ligation H/O knee surgery History of orthopedic surgery History of arthroplasty of right knee History of pubovaginal sling Hx of colonoscopy History of carpal tunnel release of both wrists History of esophagogastroduodenoscopy (EGD) Previous back surgery History of endometrial ablation Hx of section Family History Mother Diabetes Arthritis Brother Cancer Paternal Aunt Breast cancer Social History Household Members: None Housing: Apartment Are you a primary resident caregiver to a significant other at home: No Do you presently have visiting nurse or other home services: Yes ([employer]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) Alcohol intake: former Year quit: 2017 Comment: pt sleeping Patient Tobacco Use Status: Current everyday Tobacco user Tobacco use type: Cigarette Cigarettes Per Day: 5 Years Smoked: 2014 Substance Use Type: Crack/Cocaine and Marijuana service: No Current occupational status: disabled Female Reproductive History Menstrual Age of Menarche: 11 Review of Systems Const All systems reviewed & are unremarkable except as noted in HPI and below Physical Exam Vital Signs: Last Vital Signs Pulse 67 09/19/23 14:11 Resp 18 09/19/23 14:11 BP 138/64 09/19/23 14:11 Pulse Ox 97 09/19/23 14:11 Oxygen Delivery Method Room Air 09/19/23 14:11 BMI result Body Mass Index 29.3 Const General: cooperative and well developed Orientation/consciousness: patient oriented x3 Limitations: language barrier HEENT Head: Yes atraumatic Mouth: no other ( thrush) Throat: No postnasal drainage Eyes General: appearance normal, both eyes and all related structures Sclerae: sclerae normal EOM: EOMs intact bilaterally Neck Neck: Yes supple Lymphatic: no lymphadenopathy noted Chest Chest palpation & inspection: normal inspection of the chest Resp Effort & Inspection: normal respiratory effort, able to speak in complete sentences, normal respiratory pattern, no audible wheezes, no cough and decreased respiratory effort Cardio Jugular venous distension: no JVD GI Inspection: Yes normal to inspection Neuro General: patient oriented x3 Extrem General: No clubbing, No cyanosis and Yes edema (symmetric b/l LE pitting edema.) Assessment & Plan Assessment & Plan (1) Vertebrogenic low back pain: Code(s): M54.51 - Vertebrogenic low back pain (2) Lumbar back pain with radiculopathy affecting right lower extremity: Code(s): M54.16 - Radiculopathy, lumbar region (3) Sacroiliac joint dysfunction of right side: Code(s): M53.3 - Sacrococcygeal disorders, not elsewhere classified (4) Sacroiliitis: Code(s): M46.1 - Sacroiliitis, not elsewhere classified (5) Disc degeneration, lumbar: Code(s): M51.36 - Other intervertebral disc degeneration, lumbar region (6) Spondylosis of lumbar spine: Code(s): M47.816 - Spondylosis without myelopathy or radiculopathy, lumbar region (7) Chronic pain syndrome: Code(s): G89.4 - Chronic pain syndrome Plan: Intrathecal pump refill. THE PATIENT CAME TODAY IN THE office FOR THE CHANGE OF THE MEDICATION IN her PAIN PUMP. The name and date of were verified and informed consent was obtained for the procedure. ?The pump was interrogated and the residual amount of fluid was found to be 4.2 mL. SHE WAS POSITIONED prone on the bed AND THE AREA OF THE INTRATHECAL PUMP WAS PREPPED WITH CHLORAPREP. The fenestrated drape was sterilely applied over the area of the pump. Sterile gloves were worn and of the aspiration system was assembled containing 2 in 22 gauge noncoring needle, the needle was connected to extension tubing which was connected to the 20 cc sterile syringe. The pain pump was palpated under the skin in the patient's right buttock area. The needle was inserted through the skin and the central plug of the pain pump and fluid was aspirated. The clear fluid was going into the syringe the total amount of the fluid was 5.0 mL .. After that a new batch? of medication was obtained which was containing hydromorphone in concentration 1000 micro g/ml and bupivacaine 30 mg per ml. The admixture was made in 20 cc syringe prepared by [facility] compounding pharmacy. The syringe was connected to the bacterial filter, and then connected to the extension tubing. After that the medication in the syringe was slowly instilled into the pump with aspirations at 15 and 5 cc fajardo.? The pump was reprogrammed for the doses of 65 mg per day with corresponding dose of bupivacaine which was increased from the last time and now it will be 1.2 mg per day and she will be able to receive every 3 hours increased dose of hydromorphone 85 micro g of hydromorphone and 1.9 mg of bupivacaine on demand 5 times in 24 hour period. (6) Chronic pain syndrome: (8) Generalized osteoarthritis: Code(s): M15.9 - Polyosteoarthritis, unspecified (9) Edema of both lower extremities: Code(s): R60.0 - Localized edema Plan: An Plan I will schedule this patient for MRI of the lumbar spine to evaluate Modic type changes in her lumbar vertebra as. She reports flexing forward aggravates her pain. The pain might be coming from endplate vertebral pathology. I will have radiologist to evaluate the MRI for Modic type 1 and Modic type 2 changes in the lower lumbar spine. Orders: Orders MR lumbar spine wo con Today M54.51 - Vertebrogenic low back pain Patient Instructions: I here by testify that I spent 35 minutes evaluating patient's prior images, discussing patient's condition, and preparing this note. I also had some time to feel of her pain pump. Coding Level of Care Code Est Pt Level 4 (38469) Procedure Only Diagnoses Vertebrogenic low back pain M54.51 Lumbar back pain with radiculopathy affecting right lower extremity M54.16 Sacroiliac joint dysfunction of right side M53.3 Sacroiliitis M46.1 Disc degeneration, lumbar M51.36 Spondylosis of lumbar spine M47.816 Chronic pain syndrome G89.4 Generalized osteoarthritis M15.9 Edema of both lower extremities R60.0
== END 2023-09-19 15:26 | disposition home or self-care (01) ==
PROVIDERS: PCP Internal Medicine; Visit Provider Anesthesiology
DX: G89.4 Chronic pain syndrome (principal); M46.1 Sacroiliitis, not elsewhere classified; M54.51 Vertebrogenic low back pain; Z45.1 Encounter for adjustment and management of infusion pump; M54.16 Radiculopathy, lumbar region; M53.3 Sacrococcygeal disorders, not elsewhere classified; M51.36 Other intervertebral disc degeneration, lumbar region; M15.9 Polyosteoarthritis, unspecified; R60.0 Localized edema
CPT/HCPCS: 62370

== ENCOUNTER → 2023-09-19 13:46 | Outpatient (BNVA) | payer OTHER, SELFPAY | PROVIDERS: PCP Internal Medicine; Visit Provider Anesthesiology | DX: Z45.1 Encounter for adjustment and management of infusion pump (principal); M54.51 Vertebrogenic low back pain; M54.16 Radiculopathy, lumbar region; M53.3 Sacrococcygeal disorders, not elsewhere classified; M46.1 Sacroiliitis, not elsewhere classified; M51.36 Other intervertebral disc degeneration, lumbar region; M47.816 Spondylosis without myelopathy or radiculopathy, lumbar region; M15.9 Polyosteoarthritis, unspecified; R60.0 Localized edema; G89.4 Chronic pain syndrome | CPT/HCPCS: 62370 ==

== ENCOUNTER 2023-09-27 12:07 | Outpatient (AMB) | payer OTHER, SELFPAY ==
--- NOTE | 2023-09-27 12:10 | MHC.OFFVIS ---
Vital Signs 09/27/23 12:17 Height 5 ft 2 in Weight 167 lb BMI 30.5 BP 145/67 H Blood Pressure Location Lt brachial Position Sitting Pulse 62 Intake Visit Reasons: 3 month abd pains Manager Beverage Required: Yes Accompanied by: Self / Same As Patient Allergies Seasonal Allergies Allergy (Mild, Verified 06/11/24 10:41) Unknown Medication List - Last Reconciled 09/27/23 by Sherri Britton MD albuterol sulfate 90 mcg/actuation (Ventolin HFA) 2 puffs PO Q4H PRN amlodipine 10 mg PO DAILY ascorbic acid (vitamin C) 250 mg PO DAILY atenolol 50 mg PO BEDTIME baclofen 20 mg PO TID bismuth subsalicylate (Bismuth) 2 tabs PO QID 7 days cetirizine 10 mg PO DAILY cholecalciferol (vitamin D3) 50 mcg PO DAILY duloxetine 60 mg PO BID ferrous gluconate 240 mg PO Q OTHER DAY fluticasone propionate 50 mcg/actuation 1 spray intranasal BID otxsctwlwlh-iffwcuglq-tujzdfij 100-62.5-25 mcg (Trelegy Ellipta) 1 inh inhalation DAILY 30 days hydrocortisone 2.5% [address] BID-QID PRN 30 days ipratropium-albuterol 0.5 mg-3 mg(2.5 mg base)/3 mL 3 mL inhalation Q4-6H PRN 30 days losartan 100 mg PO DAILY lubiprostone (Amitiza) 16 mcg (2 x 8 mcg) PO BID 30 days melatonin 3 mg PO BEDTIME meloxicam 15 mg PO DAILY metformin 500 mg PO DAILY mupirocin 2% topical TID omeprazole 40 mg PO BID 30 days pregabalin 150 mg PO BID 30 days simvastatin 20 mg PO BEDTIME zolpidem 10 mg PO BEDTIME PRN HPI HPI 3 month abd pains: Details: GI CLINIC VISIT FOR THIS 63-YEAR-OLD PASHTO-SPEAKING FEMALE FOR FU OF ABD PAIN: ? 1. Epigastric pain - R10.13 (Primary) ? 2. Gastroesophageal reflux disease without esophagitis - K21.9 ? 3. Abdominal bloating - R14.0 ? 4. Colon cancer screening - Z12.11 ? IMAGING STUDIES: Oct, [address] SCAN SHOWED: 1. No acute intra-abdominal process seen. 2. Moderate constipation. No obstruction seen. 3. There is a band of soft tissue thickening posterior to the cecum. Itis stable to 2019 exam The appendix is not seen. Question appendix. Correlate with clinical exam. 08/06/20 GASTRIC EMPTYING STUDY SHOWED:? ? ? Retention in the stomach at each time interval was: ? ? ? 1 hour 63% (normal 37%-90%) ? ? ? 2 hours 8% (normal 30%-60%) ? ? ? 3 hours 4% ? ? ? 4 hours (Not Obtained) (normal 0%-10%) IMPRESSION: Normal solid food gastric emptying study. ?08/04/[address] scan showed: ? GASTROINTESTINAL TRACT: There is a duodenal diverticulum adjacent to the pancreas that measures 2 x 2.7 cm. ? Small and large bowel is otherwise unremarkable. ? The stomach is unremarkable. The appendix is not identified. The small and large bowel are unremarkable. ? The appendix is unremarkable. ? ABDOMINAL WALL: No significant hernia is appreciated. ? LYMPH NODES: There are small, small bowel mesentery lymph nodes. No enlarged lymph nodes are seen. ? OSSEOUS STRUCTURES: There are degenerative changes of the spine. ? IMPRESSION: Duodenal diverticulum, otherwise unremarkable exam. ?ENDOSCOPIC PROCEDURES: 10/21/19 COLONOSCOPY SHOWED: ? Ascending Colon A 1.5 to 2 cms flat polyp in the distal AC raised with 2 cc ? of Orise solution and removed with a hot snare ? Transverse Colon - Normal ? Descending Colon Moderate diverticulosis ? Sigmoid Colon Moderate diverticulosis ? Ano-rectum - Moderate internal hemorrhoids ? Colon preparation: Fair despite copious irrigation ? Impression and Post Procedure Diagnosis: ? Colonoscopy Findings: ? One 1.5 to 2 cms hyperplastic polyp removed ? Moderate diverticulosis seen in the left colon ? Moderate hemorrhoids on retroflexed exam. ? Plan: ? Repeat Colonoscopy interval based on path results in 1-2 years due to fair prep. ? Above findings were reviewed with the patient and colon polyps and ? diverticulosis handouts were given in the discharge area ? LETTER SENT ADVISING REPEAT COLONOSCOPY IN 5 YRS - will ask patient to have a stool FIT test checked in the interim due to fair prep. 09/2019 EGD SHOWED: Mild gastritis and gastric biopsies showed mild chronic inactive gastritis and features of reactive gastropathy. No H pylori was detected.Duodenal biopsies were normal. ?TODAY'S VISIT [place]ologic technologist, Yeny CC: Patient c/o constipation, epigastric pain after eating. She reports she was having a lot of abdominal pain due to constipation and rectal bleeding. After that constipation episode she started having diarrhea she states for a week. The pain never goes away Taking Omeprazole twice a day Loss of appetite and barely eat. Eats a little bit and feels very full Has diarrhea which does not stop and is dark in color. Can have 5 Bms a day Went 3 times last night Had an episode of fecal incontinence. Stools are slimy and she felt scared. PAST VISIT: EGD and Colon results reviewed Continues to have constipation Feels a ball comes out and her hemorrhoids came out. Today she reports she has to strain when she is having a BM and she feels like a ball coming out of her rectum. Seen by PCP and prescribed a suppositories Can have intermittent diarrhea sometimes with urgency and bowel accidents Complains of intermittent regurgitation and heartburn Has been having a lot of diarrhea x 6 weeks and has to use pampers. Notes lower abdominal cramps followed by diarrhea BMs can be watery and sometimes very dark - can have upto 3 BMs a day. Has stopped taking laxatives and medications for constipation Travelled to [place] for 3 weeks. - had diarrhea before she went to [place]. Fell x 2 while in [place] Pt denies fever or chills and complains of sweating. Appetite has been poor. Denies recent antibiotic use Continues to have acid reflux. Notes lower extremity edema for the past 2 weeks Has been having diffuse abdominal pain x 2 weeks. Feels bloated and distended. Pain is 9/10 and is burning. Unable to eat - able to eat small amounts of food Has 2 BMs a day and sometimes urgency. Notes some decrease in pain after she has a BM. Notes sour bile which comes up. Sometimes she has a lot of pain and is unable to have a BM. Has never used an enema. Denies fever chills or sweating Has been chewing some white pills which did not help Also notes diarrhea - Has been having a lot of lower abdominal pain and pain in her lower back. Passed a soft stool - it was painful [place] bloated and gassy and denies nausea or vomiting. Drinks coffee in the morning and has a BM daily. Took a chewable pill and it helped with pain. Continues to have abdominal pain and constipation. Has a lot of pain when she goes to the bathroom. Stomach gets big and swollen Unable to eat since it hurts too much. Takes 2 chewable tablets when she had the pain. Unable to eat until the following day. Has pain 2 times a week and lasts 45 min to an hour. I have been having abdominal pain. Feels completely full after eating a few bites and unable to eat more Feels bloated. Taking a medication twice a day for pain which helps after a while. Gets a lot of constipation and has to push and has hard stools. Has a BM every 2 weeks. I had a lot of abd pain and I have been constipated. Had to sit on the toilet for an hour last night and was unable to have a BM. Took simethicone and had diarrhea. Abd pain improved after she had a BM Has chronic anemia and denies having periods for the past 10 yrs. Pt states When I eat I get pain in my stomach, I feel like my intestines are twisting inside. It feels like my stomach is very full when I eat. The other day I did have an accident, I couldn't make it in time. Usually I don't have diarrhea that was just one time. But mostly I just get the constipation and the pain in my stomach, my belly gets really big. It feels like my stomach is swelling. I have to constantly take the tums but I think I need a stronger medication for that. She is recuperating from her knee replacement surgery. It hurts a lot.? Has to eat very little when she eats. Denies nausea or vomiting. Stomach is bloated, painful and I have a hard time going to the bathroom. Feels like intestines are twisted up. ? GES results were reviewed with the patient. ? If I dont keep taking my medications I will be in pain ? Does fine if she takes her medications. Can have intermittent bloating. ? Denies constipation and has a BM every other day. ? Feeling good - just some pain due to arthritis. ? Sometimes I get some pain in the stomach and unable to eat. ? If I dont take the medication, I get a lot of pain. ? She feels she gets full very fast. ? Has nausea and denies vomiting. ? Sometimes no BM x 3 days - not taking any medication for constipation. ? Has acid reflux at night and takes TUMS with some relief. ? Notes post prandial abdominal pain. ? Has a BM 3-4 times a day and no BM on some days. ? Not taking the Senna since she does not feel constipation. ? Denies any change in her abd pain with BM and passage of gas. ? Not taking any medication for constipation at present. ? Denies past problems with anesthesia [facility] Medical History (Updated 05/27/24 @ 16:27 by Kenny Mancini) Asthma-COPD overlap syndrome Lumbar back pain with radiculopathy affecting right lower extremity Sacroiliac joint dysfunction of right side Sacroiliitis Disc degeneration, lumbar HPV test positive Chronic pain syndrome Acute blood loss anemia Hypertension Osteoarthritis of right knee MENDENHALL (dyspnea on exertion) Presence of dental bridge Sleep apnea Diabetes Overflow stress urinary incontinence in female Urge incontinence Primary osteoarthritis of hands, bilateral Loose right total knee arthroplasty Hx of carpal tunnel syndrome Pulmonary nodules GERD (gastroesophageal reflux disease) Surgical History Hx of tubal ligation H/O knee surgery History of orthopedic surgery History of arthroplasty of right knee History of pubovaginal sling Hx of colonoscopy History of carpal tunnel release of both wrists History of esophagogastroduodenoscopy (EGD) Previous back surgery History of endometrial ablation Hx of section Family History Mother Diabetes Arthritis Brother Cancer Paternal Aunt Breast cancer Social History (Updated 05/27/24 @ 15:43 by ARMIN Franco) Household Members: None Housing: Apartment Are you a primary post acute care registered nurse to a significant other at home: No Do you presently have visiting nurse or other home services: Yes ([employer]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) Alcohol intake: former Year quit: 2017 Comment: pt sleeping Patient Tobacco Use Status: Current everyday Tobacco user Tobacco use type: Cigarette Cigarettes Per Day: 5 Years Smoked: 2014 Second Hand Smoke Exposure: No Substance Use Type: Crack/Cocaine and Marijuana service: No Current occupational status: disabled Current occupation: rt handed Female Reproductive History Menstrual Age of Menarche: 11 Review of Systems Const All systems reviewed & are unremarkable except as noted in HPI and below Physical Exam Vital Signs: Last Vital Signs Pulse 62 09/27/23 12:17 BP 145/67 H 09/27/23 12:17 BMI result Body Mass Index 30.5 Const Other: General: healthy appearing and no acute distress Nutritional Appearance: overweight Orientation/consciousness: patient oriented x3 Limitations: language barrier HEENT Head: Yes normal to inspection Ears: hearing grossly normal bilaterally Eyes Sclerae: sclerae normal Pupils: Equal, round and reactive pupils present Neck Neck: Yes normal visual inspection Chest Chest palpation & inspection: normal inspection of the chest Resp Effort & Inspection: normal respiratory effort Auscultation: clear to auscultation bilaterally Cardio Palpation: normal PMI Rate: regular rate Rhythm: regular rhythm Heart sounds: S1 normal heart sound present, S2 normal heart sound present and no murmurs GI Palpation (GI): Soft to palpation, nontender and No hepatosplenomegaly present Auscultation: normal bowel sounds Rectal Exam - Female: deferred Skin General skin exam: no rashes or lesions noted Neuro General: patient oriented x3, gait normal and moves all extremities Cranial nerves: Yes Equal, round and reactive pupils present Psych Appearance: grossly normal Mental Status: mental status grossly normal Assessment & Plan Assessment & Plan (1) Diarrhea: Code(s): R19.7 - Diarrhea, unspecified Category: Medical (2) Epigastric pain: Code(s): R10.13 - Epigastric pain Category: Medical (3) Duodenal diverticulum: Code(s): K57.10 - Diverticulosis of small intestine without perforation or abscess without bleeding Category: Medical (4) Abdominal bloating: Code(s): R14.0 - Abdominal distension (gaseous) Category: Medical (5) Colon cancer screening: Comment: 10/11/19 Colonoscopy showed One 1.5 to 2 cms hyperplastic polyp removed, Moderate diverticulosis seen in the left colon and moderate hemorrhoids on retroflexed exam. advised repeat colon in 5 yrs - 02/2020 A stool FIT test was checked due to fair prep and was negative. Code(s): Z12.11 - Encounter for screening for malignant neoplasm of colon Category: Medical (6) Early satiety: Code(s): R68.81 - Early satiety Category: Medical (7) Chronic constipation: Code(s): K59.09 - Other constipation Category: Medical (8) Abdominal bloating: Code(s): R14.0 - Abdominal distension (gaseous) Category: Medical (9) GERD (gastroesophageal reflux disease): Code(s): K21.9 - Gastro-esophageal reflux disease without esophagitis Category: Medical (10) Chronic diarrhea: Code(s): K52.9 - Noninfective gastroenteritis and colitis, unspecified Category: Medical Plan 63-year-old Burmese-speaking female with hypertension, depression, chronic obstructive pulmonary disease (COPD), erosive osteoarthritis of hands, mild lumbar spondylosis, b/l carpal tunnel syndrome, Bilateral knee OA, Asthma, Constipation, Dyspepsia, microscopic hematuria followed in GI for GERD, abdominal pain with bloating and colon cancer screening - Abdominal pain and bloating is likely related to chronic constipation or related to duodenal diverticulum. No pancreatic or biliary source found on recent CT scan. Patient complains of early satiety and a gastric emptying study was normal. Patient was prescribed Linzess for constipation during her last visit and denies getting this medication from the pharmacy. Linzess was prescribed again and I requested Phoebe, GI RN, to check with the pharmacy to confirm it is available for the patient Pt denies improvement in constipation with Linzess - pt was switched to Lubiprostone 16 mcg twice daily for constipation. Oct [address] scan was performed and results as noted above. 03/30/23 EGD (evaluation of abd pain and FU of duodenal diverticulum) and Colon (abd pain, diarrhea, anemia and fair prep on past colon) performed results as noted above 06/15/23 patient was prescribed MiraLax, senna and Amitiza for constipation 09/27/23 Pt advised to have stools studies for further evaluation of diarrhea FU in 3 months Orders: Orders Complete Blood Count Auto Diff 09/27/23 K52.9 - Noninfective gastroenteritis and colitis, unspecified Lipase 09/27/23 K52.9 - Noninfective gastroenteritis and colitis, unspecified Ova and Parasite 09/27/23 K52.9 - Noninfective gastroenteritis and colitis, unspecified Pancreatic Elastase-1 09/27/23 K52.9 - Noninfective gastroenteritis and colitis, unspecified Ferritin 09/27/23 K52.9 - Noninfective gastroenteritis and colitis, unspecified CDiff Gene PCR 09/27/23 K52.9 - Noninfective gastroenteritis and colitis, unspecified GI Panel 09/27/23 K52.9 - Noninfective gastroenteritis and colitis, unspecified Calprotectin, Fecal 09/27/23 K52.9 - Noninfective gastroenteritis and colitis, unspecified Coding Level of Care Code Est Pt Level 4 (84650) Diagnoses Diarrhea R19.7 Epigastric pain R10.13 Duodenal diverticulum K57.10 Abdominal bloating R14.0 Colon cancer screening Z12.11 Early satiety R68.81 Chronic constipation K59.09 GERD (gastroesophageal reflux disease) K21.9 Chronic diarrhea K52.9 Time Spent (min) 20
--- NOTE | 2023-09-27 12:16 | A.OFFVIS_ITS ---
Intake Vital Signs 09/27/23 12:17 Height 5 ft 2 in Weight 167 lb BMI 30.5 BP 145/67 H Blood Pressure Location Lt brachial Position Sitting Pulse 62 Intake Visit Reasons: 3 month abd pains Intake Note: Patient follow up for abdominal bloating. Patient cc: abdominal pain with bloating, GERD, no appetite, and black stool. Store Administrator Required: Yes Store Administrator Name: Yeny [facility] [place] interpeter Accompanied by: Self / Same As Patient Allergies No Known Allergies Allergy (Verified 09/27/23 12:18) Medication List - Last Reconciled 09/27/23 by Sherri Britton MD albuterol sulfate 90 mcg/actuation (Ventolin HFA) 2 puffs PO Q4H PRN amlodipine 10 mg PO DAILY ascorbic acid (vitamin C) 250 mg PO DAILY atenolol 50 mg PO BEDTIME baclofen 20 mg PO TID bismuth subsalicylate (Bismuth) 2 tabs PO QID 7 days cetirizine 10 mg PO DAILY cholecalciferol (vitamin D3) 50 mcg PO DAILY duloxetine 60 mg PO BID ferrous gluconate 240 mg PO Q OTHER DAY fluticasone propionate 50 mcg/actuation 1 spray intranasal BID [id number]-ecsiwkld 100-62.5-25 mcg (Trelegy Ellipta) 1 inh inhalation DAILY 30 days hydrocortisone 2.5% 1 appl IA BID-QID PRN 30 days ipratropium-albuterol 0.5 mg-3 mg(2.5 mg base)/3 mL 3 mL inhalation Q4-6H PRN 30 days losartan 100 mg PO DAILY lubiprostone (Amitiza) 16 mcg (2 x 8 mcg) PO BID 30 days melatonin 3 mg PO BEDTIME meloxicam 15 mg PO DAILY metformin 500 mg PO DAILY mupirocin 2% topical TID omeprazole 40 mg PO BID 30 days pregabalin 150 mg PO BID 30 days simvastatin 20 mg PO BEDTIME zolpidem 10 mg PO BEDTIME PRN PFSH Medical History Lumbar back pain with radiculopathy affecting right lower extremity Sacroiliac joint dysfunction of right side Sacroiliitis Disc degeneration, lumbar HPV test positive Chronic pain syndrome Acute blood loss anemia Hypertension Osteoarthritis of right knee MENDENHALL (dyspnea on exertion) Presence of dental bridge Sleep apnea Diabetes Overflow stress urinary incontinence in female Urge incontinence Primary osteoarthritis of hands, bilateral Loose right total knee arthroplasty Hx of carpal tunnel syndrome Pulmonary nodules Asthma-COPD overlap syndrome GERD (gastroesophageal reflux disease) Surgical History Hx of tubal ligation H/O knee surgery History of orthopedic surgery History of arthroplasty of right knee History of pubovaginal sling Hx of colonoscopy History of carpal tunnel release of both wrists History of esophagogastroduodenoscopy (EGD) Previous back surgery History of endometrial ablation Hx of section Family History Mother Diabetes Arthritis Brother Cancer Paternal Aunt Breast cancer Social History Household Members: None Housing: Apartment Are you a primary acute care physical therapist to a significant other at home: No Do you presently have visiting nurse or other home services: Yes ([employer]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) Alcohol intake: former Year quit: 2017 Comment: pt sleeping Patient Tobacco Use Status: Current everyday Tobacco user Tobacco use type: Cigarette Cigarettes Per Day: 5 Years Smoked: 2014 Substance Use Type: Crack/Cocaine and Marijuana service: No Current occupational status: disabled Female Reproductive History Menstrual Age of Menarche: 11 Physical Exam Vital Signs: Last Vital Signs Pulse 62 09/27/23 12:17 BP 145/67 H 09/27/23 12:17 BMI result Body Mass Index 30.5 Assessment & Plan Assessment & Plan (1) Diarrhea: Code(s): R19.7 - Diarrhea, unspecified (2) Epigastric pain: Code(s): R10.13 - Epigastric pain (3) Duodenal diverticulum: Code(s): K57.10 - Diverticulosis of small intestine without perforation or abscess without bleeding (4) Abdominal bloating: Code(s): R14.0 - Abdominal distension (gaseous) (5) Colon cancer screening: Comment: 10/11/19 Colonoscopy showed One 1.5 to 2 cms hyperplastic polyp removed, Moderate diverticulosis seen in the left colon and moderate hemorrhoids on retroflexed exam. advised repeat colon in 5 yrs - 02/2020 A stool FIT test was checked due to fair prep and was negative. Code(s): Z12.11 - Encounter for screening for malignant neoplasm of colon (6) Early satiety: Code(s): R68.81 - Early satiety (7) Chronic constipation: Code(s): K59.09 - Other constipation (8) GERD (gastroesophageal reflux disease): Code(s): K21.9 - Gastro-esophageal reflux disease without esophagitis (9) Chronic diarrhea: Code(s): K52.9 - Noninfective gastroenteritis and colitis, unspecified Orders: Orders Complete Blood Count Auto Diff Today K52.9 - Noninfective gastroenteritis and colitis, unspecified Lipase Today K52.9 - Noninfective gastroenteritis and colitis, unspecified Ova and Parasite Today K52.9 - Noninfective gastroenteritis and colitis, unspecified Pancreatic Elastase-1 Today K52.9 - Noninfective gastroenteritis and colitis, unspecified Ferritin Today K52.9 - Noninfective gastroenteritis and colitis, unspecified CDiff Gene PCR Today K52.9 - Noninfective gastroenteritis and colitis, unspecified GI Panel Today K52.9 - Noninfective gastroenteritis and colitis, unspecified Calprotectin, Fecal Today K52.9 - Noninfective gastroenteritis and colitis, unspecified Coding Diagnoses Diarrhea R19.7 Epigastric pain R10.13 Duodenal diverticulum K57.10 Abdominal bloating R14.0 Colon cancer screening Z12.11 Early satiety R68.81 Chronic constipation K59.09 GERD (gastroesophageal reflux disease) K21.9 Chronic diarrhea K52.9
[2023-09-27 12:17] VITALS: BP 145/67; PULSE 62; BMI 30.5
== END 2023-09-27 14:58 | disposition home or self-care (01) ==
PROVIDERS: PCP Internal Medicine; Visit Provider Internal Medicine Gastroenterology
DX: R19.7 Diarrhea, unspecified (principal); R10.13 Epigastric pain; K57.10 Diverticulosis of small intestine without perforation or abscess without bleeding; R14.0 Abdominal distension (gaseous); Z12.11 Encounter for screening for malignant neoplasm of colon; R68.81 Early satiety; K59.09 Other constipation; K21.9 Gastro-esophageal reflux disease without esophagitis; K52.9 Noninfective gastroenteritis and colitis, unspecified
CPT/HCPCS: 99499

== ENCOUNTER → 2023-09-27 12:07 | Outpatient (BNVA) | payer OTHER, SELFPAY | PROVIDERS: PCP Internal Medicine; Visit Provider Internal Medicine Gastroenterology ==

== ENCOUNTER 2023-10-24 14:12 | Outpatient (AMB) | payer OTHER, SELFPAY ==
--- NOTE | 2023-10-24 14:33 | A.OFFVIS_ITS ---
Intake Vital Signs 10/24/23 14:49 Height 5 ft 2 in Weight 162 lb BMI 29.6 BP 122/60 Blood Pressure Location Lt brachial Position Sitting Respiration 16 Pulse 60 Pulse Source Pulse Oximeter Pulse Oximetry (%) 95 Oxygen Delivery Method Room Air Intake Visit Reasons: ITDD Refill/no answer Intake Note: Patient comes in for intrathecal medication pump refill. Reports pain level 7/10. Allergies No Known Allergies Allergy (Verified 10/24/23 14:48) HPI HPI Comments History of Present Illness Details Norma is a very pleasant 62 year old female who presents to the office today for refill of her ITDD. She reports now that new concentration of medication with increase concentration of the bupivacaine helps her pain significantly. However she complains on lightheadedness and sweating when she applies PTM dose to herself. She also complains on numbness from the waist down into bilateral lower extremities which lasts several minutes after the application of the PTM dose. I explained to her that this is probably because the medication is going too fast. I will slow down today the speed of the medication administration from 6 minutes to 12 minutes but I will keep all the other parameters as they were before. If she will continue to experience the same symptoms I would in 1 week increase the speed of the administration from 12 minutes to 24 minutes. I also recommended her to drink coffee before taking PTM dose. I also recommended her to assume horizontal position in bed when she is administering herself PTM bolus. The pain pump refill is as below. Prior: Norma Fried is very pleasant 62 years old female who is under observation in my office with complains on lower back pain with radiation into bilateral lower extremities.? For the treatment of this condition she was given intrathecal pain pump.? She was in [place] and she lost her consciousness several times there.? She was told that it is before cause of the pump medication.? However she did not do that loss of consciousness in [place].? Unlikely it is a pump action.? Most likely she was just dehydrated because of the high heat in [place]. ? [facility] Medical History Lumbar back pain with radiculopathy affecting right lower extremity Sacroiliac joint dysfunction of right side Sacroiliitis Disc degeneration, lumbar HPV test positive Chronic pain syndrome Acute blood loss anemia Hypertension Osteoarthritis of right knee MENDENHALL (dyspnea on exertion) Presence of dental bridge Sleep apnea Diabetes Overflow stress urinary incontinence in female Urge incontinence Primary osteoarthritis of hands, bilateral Loose right total knee arthroplasty Hx of carpal tunnel syndrome Pulmonary nodules Asthma-COPD overlap syndrome GERD (gastroesophageal reflux disease) Surgical History Hx of tubal ligation H/O knee surgery History of orthopedic surgery History of arthroplasty of right knee History of pubovaginal sling Hx of colonoscopy History of carpal tunnel release of both wrists History of esophagogastroduodenoscopy (EGD) Previous back surgery History of endometrial ablation Hx of section Family History Mother Diabetes Arthritis Brother Cancer Paternal Aunt Breast cancer Social History Household Members: None Housing: Apartment Are you a primary rn progressive care unit to a significant other at home: No Do you presently have visiting nurse or other home services: Yes ([employer]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) Alcohol intake: former Year quit: 2017 Comment: pt sleeping Patient Tobacco Use Status: Current everyday Tobacco user Tobacco use type: Cigarette Cigarettes Per Day: 5 Years Smoked: 2014 Substance Use Type: Crack/Cocaine and Marijuana service: No Current occupational status: disabled Female Reproductive History Menstrual Age of Menarche: 11 Review of Systems Const All systems reviewed & are unremarkable except as noted in HPI and below Physical Exam Vital Signs: Last Vital Signs Pulse 60 10/24/23 14:49 Resp 16 10/24/23 14:49 BP 122/60 10/24/23 14:49 Pulse Ox 95 10/24/23 14:49 Oxygen Delivery Method Room Air 10/24/23 14:49 BMI result Body Mass Index 29.6 Const General: cooperative and well developed Orientation/consciousness: patient oriented x3 Limitations: language barrier HEENT Head: Yes atraumatic Mouth: no other ( thrush) Throat: No postnasal drainage Eyes General: appearance normal, both eyes and all related structures Sclerae: sclerae normal EOM: EOMs intact bilaterally Neck Neck: Yes supple Lymphatic: no lymphadenopathy noted Chest Chest palpation & inspection: normal inspection of the chest Resp Effort & Inspection: normal respiratory effort, able to speak in complete sentences, normal respiratory pattern, no audible wheezes, no cough and decreased respiratory effort Cardio Jugular venous distension: no JVD GI Inspection: Yes normal to inspection Neuro General: patient oriented x3 Extrem General: No clubbing, No cyanosis and Yes edema (symmetric b/l LE pitting edema.) Assessment & Plan Assessment & Plan (1) Vertebrogenic low back pain: Code(s): M54.51 - Vertebrogenic low back pain (2) Lumbar back pain with radiculopathy affecting right lower extremity: Code(s): M54.16 - Radiculopathy, lumbar region (3) Sacroiliac joint dysfunction of right side: Code(s): M53.3 - Sacrococcygeal disorders, not elsewhere classified (4) Sacroiliitis: Code(s): M46.1 - Sacroiliitis, not elsewhere classified (5) Disc degeneration, lumbar: Code(s): M51.36 - Other intervertebral disc degeneration, lumbar region (6) Spondylosis of lumbar spine: Code(s): M47.816 - Spondylosis without myelopathy or radiculopathy, lumbar region (7) Chronic pain syndrome: Code(s): G89.4 - Chronic pain syndrome Plan: Intrathecal pump refill. THE PATIENT CAME TODAY IN THE office FOR THE CHANGE OF THE MEDICATION IN her PAIN PUMP. The name and date of were verified and informed consent was obtained for the procedure. ?The pump was interrogated and the residual amount of fluid was found to be 5.2 mL. SHE WAS POSITIONED prone on the bed AND THE AREA OF THE INTRATHECAL PUMP WAS PREPPED WITH CHLORAPREP. The fenestrated drape was sterilely applied over the area of the pump. Sterile gloves were worn and of the aspiration system was assembled containing 2 in 22 gauge noncoring needle, the needle was connected to extension tubing which was connected to the 20 cc sterile syringe. The pain pump was palpated under the skin in the patient's right buttock area. The needle was inserted through the skin and the central plug of the pain pump and fluid was aspirated. The clear fluid was going into the syringe the total amount of the fluid was 5.9 mL .. After that a new batch? of medication was obtained which was containing hydromorphone in concentration 1000 micro g/ml and bupivacaine 30 mg per ml. The admixture was made in 20 cc syringe prepared by [facility] compounding pharmacy. The syringe was connected to the bacterial filter, and then connected to the extension tubing. After that the medication in the syringe was slowly instilled into the pump with aspirations at 15 and 5 cc fajardo.? The pump was reprogrammed with the doses of 65 mg per day with corresponding dose of bupivacaine of the continuous medication to stay the same as the last time. The corresponding dose of the bupivacaine is 1.2 mg per day. she will be able to receive every 3 hours as previously the dose of hydromorphone 85 micro g of hydromorphone and 1.9 mg of bupivacaine on demand 5 times in 24 hour period. The only difference this time would be that instead of 6 minutes the PTM dose will be administered over the course of 12 minutes. (6) Chronic pain syndrome: (8) Generalized osteoarthritis: Code(s): M15.9 - Polyosteoarthritis, unspecified (9) Edema of both lower extremities: Code(s): R60.0 - Localized edema Plan: An Plan I will schedule this patient for MRI of the lumbar spine to evaluate Modic type changes in her lumbar vertebra as. She reports flexing forward aggravates her pain. The pain might be coming from endplate vertebral pathology. I will have radiologist to evaluate the MRI for Modic type 1 and Modic type 2 changes in the lower lumbar spine. She was thoroughly explained today that she needs to come to the office after the MRI to have her pump read. Coding Level of Care Code Est Pt Level 3 (15524) Procedure Only Diagnoses Vertebrogenic low back pain M54.51 Lumbar back pain with radiculopathy affecting right lower extremity M54.16 Sacroiliac joint dysfunction of right side M53.3 Sacroiliitis M46.1 Disc degeneration, lumbar M51.36 Spondylosis of lumbar spine M47.816 Chronic pain syndrome G89.4 Generalized osteoarthritis M15.9 Edema of both lower extremities R60.0
[2023-10-24 14:49] VITALS: BP 122/60; PULSE 60; RESP 16; O2SAT 95; BMI 29.6
== END 2023-10-24 15:08 | disposition home or self-care (01) ==
PROVIDERS: PCP Internal Medicine; Visit Provider Anesthesiology
DX: M54.51 Vertebrogenic low back pain (principal); M54.16 Radiculopathy, lumbar region; M53.3 Sacrococcygeal disorders, not elsewhere classified; M46.1 Sacroiliitis, not elsewhere classified; M51.36 Other intervertebral disc degeneration, lumbar region; M47.816 Spondylosis without myelopathy or radiculopathy, lumbar region; G89.4 Chronic pain syndrome; M15.9 Polyosteoarthritis, unspecified; R60.0 Localized edema
CPT/HCPCS: 62370; 99213

== ENCOUNTER → 2023-10-24 14:12 | Outpatient (BNVA) | payer OTHER, SELFPAY | PROVIDERS: PCP Internal Medicine; Visit Provider Anesthesiology | DX: Z45.1 Encounter for adjustment and management of infusion pump (principal); G89.4 Chronic pain syndrome; M54.51 Vertebrogenic low back pain; M53.3 Sacrococcygeal disorders, not elsewhere classified; M46.1 Sacroiliitis, not elsewhere classified; M47.26 Other spondylosis with radiculopathy, lumbar region; M51.36 Other intervertebral disc degeneration, lumbar region | CPT/HCPCS: 62370; 99212 ==

== ENCOUNTER 2023-10-26 15:15 | Outpatient (AMB) | payer OTHER, SELFPAY ==
--- NOTE | 2023-10-26 15:17 | A.OFFVIS_ITS ---
Intake Intake Visit Reasons: pump revision Intake Note: Patient comes in due to having pain and discomfort. Reports pain level 10/10. Allergies No Known Allergies Allergy (Verified 10/26/23 15:18) HPI HPI Comments History of Present Illness Details Norma is a very pleasant 62 year old female who called today to the office with complaints of severe pain exacerbation after the pump refill which was done 2 days ago. The patient was invited to visit the office as soon as possible. The patient came and her pain pump was interrogated. It was found that when her pump was adjusted last time at the office as dictated as below the pump automatically dropped the PTM dose down to zero. The pump was re- interrro gated and the dose was introduced as it was previously established with the dose of the hydromorphone 85.9 mcg with duration of the administration of this dose - 9 minutes, with the ability of the patient to administer this dose every 3 hours with maximum of 5 activation in 24 hours. Prior: She reports that new concentration of medication with increase concentration of the bupivacaine helps her pain significantly. However she complains on lightheadedness and sweating when she applies PTM dose to herself. She also complains on numbness from the waist down into bilateral lower extremities which lasts several minutes after the application of the PTM dose. I explained to her that this is probably because the medication is going too fast. I will slow down today the speed of the medication administration from 6 minutes to 12 minutes but I will keep all the other parameters as they were before. If she will continue to experience the same symptoms I would in 1 week increase the speed of the administration from 12 minutes to 24 minutes. I also recommended her to drink coffee before taking PTM dose. I also recommended her to assume horizontal position in bed when she is administering herself PTM bolus. Norma Fried is very pleasant 62 years old female who is under observation in my office with complains on lower back pain with radiation into bilateral lower extremities.? For the treatment of this condition she was given intrathecal pain pump.? [facility] Medical History Lumbar back pain with radiculopathy affecting right lower extremity Sacroiliac joint dysfunction of right side Sacroiliitis Disc degeneration, lumbar HPV test positive Chronic pain syndrome Acute blood loss anemia Hypertension Osteoarthritis of right knee MENDENHALL (dyspnea on exertion) Presence of dental bridge Sleep apnea Diabetes Overflow stress urinary incontinence in female Urge incontinence Primary osteoarthritis of hands, bilateral Loose right total knee arthroplasty Hx of carpal tunnel syndrome Pulmonary nodules Asthma-COPD overlap syndrome GERD (gastroesophageal reflux disease) Surgical History Hx of tubal ligation H/O knee surgery History of orthopedic surgery History of arthroplasty of right knee History of pubovaginal sling Hx of colonoscopy History of carpal tunnel release of both wrists History of esophagogastroduodenoscopy (EGD) Previous back surgery History of endometrial ablation Hx of section Family History Mother Diabetes Arthritis Brother Cancer Paternal Aunt Breast cancer Social History Household Members: None Housing: Apartment Are you a primary manager managed care to a significant other at home: No Do you presently have 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) Alcohol intake: former Year quit: 2017 Comment: pt sleeping Patient Tobacco Use Status: Current everyday Tobacco user Tobacco use type: Cigarette Cigarettes Per Day: 5 Years Smoked: 2014 Substance Use Type: Crack/Cocaine and Marijuana service: No Current occupational status: disabled Female Reproductive History Menstrual Age of Menarche: 11 Review of Systems Const All systems reviewed & are unremarkable except as noted in HPI and below Physical Exam Const General: cooperative and well developed Orientation/consciousness: patient oriented x3 Limitations: language barrier HEENT Head: Yes atraumatic Mouth: no other ( thrush) Throat: No postnasal drainage Eyes General: appearance normal, both eyes and all related structures Sclerae: sclerae normal EOM: EOMs intact bilaterally Neck Neck: Yes supple Lymphatic: no lymphadenopathy noted Chest Chest palpation & inspection: normal inspection of the chest Resp Effort & Inspection: normal respiratory effort, able to speak in complete sentences, normal respiratory pattern, no audible wheezes, no cough and decreased respiratory effort Cardio Jugular venous distension: no JVD GI Inspection: Yes normal to inspection Neuro General: patient oriented x3 Extrem General: No clubbing, No cyanosis and Yes edema (symmetric b/l LE pitting edema.) Assessment & Plan Assessment & Plan (1) Vertebrogenic low back pain: Code(s): M54.51 - Vertebrogenic low back pain (2) Lumbar back pain with radiculopathy affecting right lower extremity: Code(s): M54.16 - Radiculopathy, lumbar region (3) Sacroiliac joint dysfunction of right side: Code(s): M53.3 - Sacrococcygeal disorders, not elsewhere classified (4) Sacroiliitis: Code(s): M46.1 - Sacroiliitis, not elsewhere classified (5) Disc degeneration, lumbar: Code(s): M51.36 - Other intervertebral disc degeneration, lumbar region (6) Spondylosis of lumbar spine: Code(s): M47.816 - Spondylosis without myelopathy or radiculopathy, lumbar region (7) Chronic pain syndrome: Code(s): G89.4 - Chronic pain syndrome Plan: (8) Generalized osteoarthritis: Code(s): M15.9 - Polyosteoarthritis, unspecified (9) Edema of both lower extremities: Code(s): R60.0 - Localized edema Plan: An Plan the interrogation of the pain pump and correction is as above. The date of the pump refill was corrected and now it is 12/02/2023. Coding Level of Care Code Est Pt Level 3 (04106) Diagnoses Vertebrogenic low back pain M54.51 Lumbar back pain with radiculopathy affecting right lower extremity M54.16 Sacroiliac joint dysfunction of right side M53.3 Sacroiliitis M46.1 Disc degeneration, lumbar M51.36 Spondylosis of lumbar spine M47.816 Chronic pain syndrome G89.4 Generalized osteoarthritis M15.9 Edema of both lower extremities R60.0
== END 2023-10-26 15:20 | disposition home or self-care (01) ==
LOC: HO.PMC 15:15
PROVIDERS: PCP Internal Medicine; Visit Provider Anesthesiology
DX: M54.51 Vertebrogenic low back pain (principal); M54.16 Radiculopathy, lumbar region; M53.3 Sacrococcygeal disorders, not elsewhere classified; Z45.1 Encounter for adjustment and management of infusion pump; M46.1 Sacroiliitis, not elsewhere classified; M51.36 Other intervertebral disc degeneration, lumbar region; M47.816 Spondylosis without myelopathy or radiculopathy, lumbar region; G89.4 Chronic pain syndrome; M15.9 Polyosteoarthritis, unspecified; R60.0 Localized edema
CPT/HCPCS: 99213

== ENCOUNTER → 2023-10-26 15:15 | Outpatient (BNVA) | payer OTHER, SELFPAY | PROVIDERS: PCP Internal Medicine; Visit Provider Anesthesiology | DX: M54.51 Vertebrogenic low back pain (principal); M54.16 Radiculopathy, lumbar region; M53.3 Sacrococcygeal disorders, not elsewhere classified; M46.1 Sacroiliitis, not elsewhere classified; M51.36 Other intervertebral disc degeneration, lumbar region; M47.816 Spondylosis without myelopathy or radiculopathy, lumbar region; M15.9 Polyosteoarthritis, unspecified; G89.4 Chronic pain syndrome; R60.0 Localized edema | CPT/HCPCS: 62327; 99212 ==

== ENCOUNTER 2023-11-29 11:11 | Outpatient (AMB) | payer OTHER, SELFPAY ==
--- NOTE | 2023-11-29 11:33 | A.OFFVIS_ITS ---
Intake Vital Signs 11/29/23 11:45 Height 5 ft 2 in Weight 165 lb BMI 30.2 BP 140/72 H Blood Pressure Location Lt brachial Position Sitting Respiration 14 Pulse 65 Pulse Source Pulse Oximeter Pulse Oximetry (%) 97 Oxygen Delivery Method Room Air Intake Visit Reasons: ITDD Refill/lvm Intake Note: Patient comes in for intrathecal medication refill. Reports pain 03/17. Allergies No Known Allergies Allergy (Verified 11/29/23 11:45) HPI HPI Comments History of Present Illness Details Norma is a very pleasant 62 year old female who is today in my office for a refill of the pain pump. She she is scheduled for the MRI of the lumbar spine on 12/17/2023. Vertebra genic pain is suspected. The pump refill as below today. She will come to the office to read the pump 2 hours after MRI is performed. Prior: She reports that new concentration of medication with increase concentration of the bupivacaine helps her pain significantly. However she complains on lightheadedness and sweating when she applies PTM dose to herself. She also complains on numbness from the waist down into bilateral lower extremities which lasts several minutes after the application of the PTM dose. I explained to her that this is probably because the medication is going too fast. I will slow down today the speed of the medication administration from 6 minutes to 12 minutes but I will keep all the other parameters as they were before. If she will continue to experience the same symptoms I would in 1 week increase the speed of the administration from 12 minutes to 24 minutes. I also recommended her to drink coffee before taking PTM dose. I also recommended her to assume horizontal position in bed when she is administering herself PTM bolus. Norma Fried is very pleasant 62 years old female who is under observation in my office with complains on lower back pain with radiation into bilateral lower extremities.? For the treatment of this condition she was given intrathecal pain pump.? [facility] Medical History Lumbar back pain with radiculopathy affecting right lower extremity Sacroiliac joint dysfunction of right side Sacroiliitis Disc degeneration, lumbar HPV test positive Chronic pain syndrome Acute blood loss anemia Hypertension Osteoarthritis of right knee MENDENHALL (dyspnea on exertion) Presence of dental bridge Sleep apnea Diabetes Overflow stress urinary incontinence in female Urge incontinence Primary osteoarthritis of hands, bilateral Loose right total knee arthroplasty Hx of carpal tunnel syndrome Pulmonary nodules Asthma-COPD overlap syndrome GERD (gastroesophageal reflux disease) Surgical History Hx of tubal ligation H/O knee surgery History of orthopedic surgery History of arthroplasty of right knee History of pubovaginal sling Hx of colonoscopy History of carpal tunnel release of both wrists History of esophagogastroduodenoscopy (EGD) Previous back surgery History of endometrial ablation Hx of section Family History Mother Diabetes Arthritis Brother Cancer Paternal Aunt Breast cancer Social History Household Members: None Housing: Apartment Are you a primary critical care unit nurse to a significant other at home: No Do you presently have visiting nurse or other home services: Yes ([employer]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) Alcohol intake: former Year quit: 2017 Comment: pt sleeping Patient Tobacco Use Status: Current everyday Tobacco user Tobacco use type: Cigarette Cigarettes Per Day: 5 Years Smoked: 2014 Substance Use Type: Crack/Cocaine and Marijuana service: No Current occupational status: disabled Female Reproductive History Menstrual Age of Menarche: 11 Review of Systems Const All systems reviewed & are unremarkable except as noted in HPI and below Physical Exam Vital Signs: Last Vital Signs Pulse 65 11/29/23 11:45 Resp 14 11/29/23 11:45 BP 140/72 H 11/29/23 11:45 Pulse Ox 97 11/29/23 11:45 Oxygen Delivery Method Room Air 11/29/23 11:45 BMI result Body Mass Index 30.2 Const General: cooperative and well developed Orientation/consciousness: patient oriented x3 Limitations: language barrier HEENT Head: Yes atraumatic Mouth: no other ( thrush) Throat: No postnasal drainage Eyes General: appearance normal, both eyes and all related structures Sclerae: sclerae normal EOM: EOMs intact bilaterally Neck Neck: Yes supple Lymphatic: no lymphadenopathy noted Chest Chest palpation & inspection: normal inspection of the chest Resp Effort & Inspection: normal respiratory effort, able to speak in complete sentences, normal respiratory pattern, no audible wheezes, no cough and decreased respiratory effort Cardio Jugular venous distension: no JVD GI Inspection: Yes normal to inspection Neuro General: patient oriented x3 Extrem General: No clubbing, No cyanosis and Yes edema (symmetric b/l LE pitting edema.) Assessment & Plan Assessment & Plan (1) Vertebrogenic low back pain: Code(s): M54.51 - Vertebrogenic low back pain (2) Lumbar back pain with radiculopathy affecting right lower extremity: Code(s): M54.16 - Radiculopathy, lumbar region (3) Sacroiliac joint dysfunction of right side: Code(s): M53.3 - Sacrococcygeal disorders, not elsewhere classified (4) Sacroiliitis: Code(s): M46.1 - Sacroiliitis, not elsewhere classified (5) Disc degeneration, lumbar: Code(s): M51.36 - Other intervertebral disc degeneration, lumbar region (6) Spondylosis of lumbar spine: Code(s): M47.816 - Spondylosis without myelopathy or radiculopathy, lumbar region (7) Chronic pain syndrome: Code(s): G89.4 - Chronic pain syndrome Plan: Intrathecal pump refill. THE PATIENT CAME TODAY IN THE office FOR THE CHANGE OF THE MEDICATION IN her PAIN PUMP. The name and date of were verified and informed consent was obtained for the procedure. ?The pump was interrogated and the residual amount of fluid was found to be 5.7 mL. SHE WAS POSITIONED prone on the bed AND THE AREA OF THE INTRATHECAL PUMP WAS PREPPED WITH CHLORAPREP. The fenestrated drape was sterilely applied over the area of the pump. Sterile gloves were worn and of the aspiration system was assembled containing 2 in 22 gauge noncoring needle, the needle was connected to extension tubing which was connected to the 20 cc sterile syringe. The pain pump was palpated under the skin in the patient's right buttock area. The needle was inserted through the skin and the central plug of the pain pump and fluid was aspirated. The clear fluid was going into the syringe the total amount of the fluid was 6.9 mL .. After that a new batch? of medication was obtained which was containing hydromorphone in concentration 1000 micro g/ml and bupivacaine 30 mg per ml. The admixture was made in 20 cc syringe prepared by [facility] compounding pharmacy. The syringe was connected to the bacterial filter, and then connected to the extension tubing. After that the medication in the syringe was slowly instilled into the pump with aspirations at 15 and 5 cc fajardo.? The pump was reprogrammed with the doses of 65 mg per day with corresponding dose of bupivacaine of the continuous medication to stay the same as the last time. The corresponding dose of the bupivacaine is 1.2 mg per day. she will be able to receive every 3 hours as previously the dose of hydromorphone 85 micro g of hydromorphone and 1.9 mg of bupivacaine on demand 5 times in 24 hour period. (6) Chronic pain syndrome: (8) Generalized osteoarthritis: Code(s): M15.9 - Polyosteoarthritis, unspecified Plan: MRI scheduled on 12/17/2023. I am suspecting vertebra genic pain on this patient. We will read the pain pump after the MRI. (9) Edema of both lower extremities: Code(s): R60.0 - Localized edema Plan: An Plan I will schedule this patient for MRI of the lumbar spine to evaluate Modic type changes in her lumbar vertebra as. She reports flexing forward aggravates her pain. The pain might be coming from endplate vertebral pathology. I will have radiologist to evaluate the MRI for Modic type 1 and Modic type 2 changes in the lower lumbar spine. She was thoroughly explained today that she needs to come to the office after the MRI to have her pump read. Coding Level of Care Code Est Pt Level 3 (97799) Procedure Only Diagnoses Vertebrogenic low back pain M54.51 Lumbar back pain with radiculopathy affecting right lower extremity M54.16 Sacroiliac joint dysfunction of right side M53.3 Sacroiliitis M46.1 Disc degeneration, lumbar M51.36 Spondylosis of lumbar spine M47.816 Chronic pain syndrome G89.4 Generalized osteoarthritis M15.9 Edema of both lower extremities R60.0
[2023-11-29 11:45] VITALS: BP 140/72; PULSE 65; RESP 14; O2SAT 97; BMI 30.2
== END 2023-11-29 12:13 | disposition home or self-care (01) ==
PROVIDERS: PCP Internal Medicine; Visit Provider Anesthesiology
DX: M54.51 Vertebrogenic low back pain (principal); M54.16 Radiculopathy, lumbar region; M53.3 Sacrococcygeal disorders, not elsewhere classified; M46.1 Sacroiliitis, not elsewhere classified; G89.4 Chronic pain syndrome; Z45.1 Encounter for adjustment and management of infusion pump
CPT/HCPCS: 62370; 99213

== ENCOUNTER → 2023-11-29 11:11 | Outpatient (BNVA) | payer OTHER, SELFPAY | PROVIDERS: PCP Internal Medicine; Visit Provider Anesthesiology | DX: M54.51 Vertebrogenic low back pain (principal); M54.16 Radiculopathy, lumbar region; M53.3 Sacrococcygeal disorders, not elsewhere classified; M46.1 Sacroiliitis, not elsewhere classified; M51.36 Other intervertebral disc degeneration, lumbar region; M47.816 Spondylosis without myelopathy or radiculopathy, lumbar region; M15.9 Polyosteoarthritis, unspecified; R60.0 Localized edema; G89.4 Chronic pain syndrome | CPT/HCPCS: 62370; 99212 ==

== ENCOUNTER 2023-12-17 13:05 | Outpatient (REF) | payer OTHER, SELFPAY ==
--- NOTE | ~2023-12-17 | MR_ITS ---
EXAMINATION: MR LUMBAR SPINE WITHOUT CONTRAST CLINICAL INFORMATION: 63-year-old with vertebral low-back pain. COMPARISON: 09/09/2021 MRI. TECHNIQUE: MRI of the lumbar spine was obtained using routine sequences without contrast. FINDINGS: CORONAL ALIGNMENT: Mild lower thoracic dextrocurvature partially imaged, similar to previous exam with trace mid lumbar levocurvature, unchanged. SAGITTAL ALIGNMENT: 3.5 mm of grade 1 spondylolisthesis at L4-L5 has progressed from the previous study. Trace anterolisthesis at L3-L4 and L2-L3 are stable. Otherwise, normal lumbar lordotic curvature. LUMBOSACRAL JUNCTION: Transitional lumbosacral anatomy with lowest lumbar-like segment labeled as L5, which appears partially sacralized on the left. VERTEBRAL BODIES: Stable vertebral body heights. No interval compression fractures. DISC SPACES AND ENDPLATES: Fbsvonhd-bg-dvzael intervertebral disc space height loss at L4-L5 has progressed from the previous exam, with progression of a central Schmorl's nodes, intradiscal degenerative changes and spondylosis. Vbpa-dc-zeyvgcut disc volume loss at L3-L4 slightly progressed with prominent anterolateral spondylosis deformans, similar to previous exam, and disc desiccation. Stable disc space heights at L1-L2 and L3-L4 with stable spondylosis and disc desiccation. Anterior marginal spondylosis at the T12-L1 is stable with disc desiccation. Stable Schmorl's nodes along the superior endplate of L1 and along the endplates centrally at T11-T12. SPINAL CANAL: Moderately prominent epidural fat throughout the lumbar canal appears somewhat more prominent than on the previous exam. BONE MARROW: There are type I degenerative marrow signal changes seen along the endplates at L3-L4 and L4-L5 progressed from the previous study. Minimal type I marrow signal changes along the endplates at L1-L2 and L2-L3 are also slightly more prominent. Note that there is susceptibility artifact related to a spinal stimulator device partially obscuring portions of the pelvis on the right. No focally suspicious marrow replacing process or bone marrow edema. CONUS MEDULLARIS: Terminates at L1. Morphology and signal is normal. INTRADURAL NERVE ROOTS: Within normal limits. L5-S1: Normal annular contour. Qssi-dt-echnxrmf facet joint arthrosis, left more than right similar to previous exam. On current study, there is a 5 mm ovoid subligamentous synovial cyst along the medial aspect of the left facet joint, which is a new finding without neural impingement. No significant canal or neural foraminal stenosis. L4-L5: Unroofing of the posterior disc margin progressed from previous exam with superimposed concentric disc bulging progressed from previous study. Flattening the ventral dural sac is progressed. Ligamentum flavum thickening and severe bilateral facet joint arthrosis is slightly progressed. Prominent dorsal fat pad also appears slightly more prominent, now with tixehlcb-rv-akphqj central spinal canal stenosis with crowding of the intradural nerve roots progressed from previous study. Mild bilateral lateral recess stenosis progressed from previous exam without definite neural impingement. Vzsj-ue-azgjglnw bilateral neural foraminal stenosis slightly progressed, with disc bulging abutting the exiting L4 nerve roots bilaterally. L3-L4: Diffuse disc bulging is slightly progressed. Flattening of the ventral dural sac slightly progressed. Prominent dorsal fat pad progressed from previous exam with skxubitu-kv-pgsnns bilateral facet hypertrophic degenerative changes and interspinous ligament degeneration, similar to prior exam. There is moderate central spinal canal stenosis progressed from previous exam and there is moderate left and bdrx-sx-bnnuldjt right-sided neural foraminal stenosis minimally progressed on the left and stable on the right. L2-L3: There is disc bulging with a superimposed left-sided foraminal/extraforaminal disc protrusion, stable in appearance. Mild flattening of the dural sac is stable with stable prominent dorsal fat pad and moderate bilateral facet arthropathy. Mild canal stenosis is stable and there is a stable wtkh-nn-ewyeqszu neural foraminal narrowing, right more than left. L1-L2: Concentric disc bulging with flattening of the dural sac is stable. Mild facet arthropathy is stable. There is susceptibility artifact in the dorsal epidural space similar to previous exam related to spinal stimulator leads entering at this level. No significant canal stenosis. Mild foraminal narrowing noted bilaterally without neural impingement, unchanged. T12-L1: Susceptibility artifact noted distorting the posterior dural sac related to spinal stimulator leads but no significant canal or neural foraminal stenosis on the sagittal T1-weighted images. Minor facet arthropathy noted bilaterally at this level. Spinal stimulator leads extending cephalad along the dorsal epidural space up to the level of the highest level imaged. PARAVERTEBRAL AND INCLUDED EXTRASPINAL SOFT TISSUES: There is posterior paraspinal and psoas muscle sarcopenia. Otherwise unremarkable. MR/MR lumbar spine wo con IMPRESSION: 1. Progression of grade 1 degenerative spondylolisthesis at L4-L5 with progression of disc bulging at this level and progression of posterior element hypertrophic degenerative changes, now with moderate to severe spinal canal stenosis with crowding of the intradural nerve roots progressed from previous exam and stable fgby-bf-zvgfveca bilateral neural foraminal stenosis with disc bulging abutting the exiting L4 nerve roots bilaterally. 2. Stable disc bulging and left lateral foraminal/extraforaminal disc protrusion at L2-L3 with stable mild spinal canal stenosis and stable mobi-cf-mbebizhh neural foraminal narrowing, right more than left. Progression of disc bulging at L3-L4 and progression of the dorsal fat pad with moderate central spinal canal stenosis progressed from previous exam at this level. 3. Disc bulging and facet arthropathy L1-L2 is stable in appearance. 4. Multilevel bilateral facet joint arthrosis as described above, with progression of epidural fat at L3-L4 and L4-L5. Multilevel bilateral neural foraminal stenosis as detailed by level above. 5. Spinal stimulator leads as described above. 6. Paraspinal and psoas muscle sarcopenia.
== END 2023-12-17 13:06 | disposition home or self-care (01) ==
LOC: HO.MRI 13:05
PROVIDERS: PCP Internal Medicine; Visit Provider Anesthesiology
DX: M54.51 Vertebrogenic low back pain (principal)
CPT/HCPCS: 72148; 99212

== ENCOUNTER 2023-12-17 14:21 | Outpatient (AMB) | payer OTHER, SELFPAY ==
--- NOTE | 2023-12-17 14:23 | A.OFFVIS_ITS ---
Intake Vital Signs 12/17/23 14:53 Height 5 ft 2 in Weight 165 lb BMI 30.2 BP 130/78 Blood Pressure Location Lt brachial Position Sitting Respiration 12 Pulse 62 Pulse Source Pulse Oximeter Pulse Oximetry (%) 96 Oxygen Delivery Method Room Air Intake Visit Reasons: pain pump read after MRI Intake Note: Patient comes in for pain pump read after MRI. Reports pain 05/17. Allergies No Known Allergies Allergy (Verified 12/17/23 14:56) HPI HPI Comments History of Present Illness Details Norma is a very pleasant 62 year old female who is today in my office for a refill of the pain pump. MRI of the lumbar spine was done today. The pain pump was read and images are available. There are some Modic type changes although they are much less pronounced that I was expecting to find. I will wait for the radiologist reading about the changes. Norma Fried is very pleasant 62 years old female who is under observation in my office with complains on lower back pain with radiation into bilateral lower extremities.? For the treatment of this condition she was given intrathecal pain pump.? [facility] Medical History Lumbar back pain with radiculopathy affecting right lower extremity Sacroiliac joint dysfunction of right side Sacroiliitis Disc degeneration, lumbar HPV test positive Chronic pain syndrome Acute blood loss anemia Hypertension Osteoarthritis of right knee MENDENHALL (dyspnea on exertion) Presence of dental bridge Sleep apnea Diabetes Overflow stress urinary incontinence in female Urge incontinence Primary osteoarthritis of hands, bilateral Loose right total knee arthroplasty Hx of carpal tunnel syndrome Pulmonary nodules Asthma-COPD overlap syndrome GERD (gastroesophageal reflux disease) Surgical History Hx of tubal ligation H/O knee surgery History of orthopedic surgery History of arthroplasty of right knee History of pubovaginal sling Hx of colonoscopy History of carpal tunnel release of both wrists History of esophagogastroduodenoscopy (EGD) Previous back surgery History of endometrial ablation Hx of section Family History Mother Diabetes Arthritis Brother Cancer Paternal Aunt Breast cancer Social History Household Members: None Housing: Apartment Are you a primary healthcare sales representative to a significant other at home: No Do you presently have visiting nurse or other home services: Yes ([employer]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) Alcohol intake: former Year quit: 2018 Comment: pt sleeping Patient Tobacco Use Status: Current everyday Tobacco user Tobacco use type: Cigarette Cigarettes Per Day: 5 Years Smoked: 2014 Substance Use Type: Crack/Cocaine and Marijuana service: No Current occupational status: disabled Female Reproductive History Menstrual Age of Menarche: 11 Review of Systems Const All systems reviewed & are unremarkable except as noted in HPI and below Physical Exam Vital Signs: Last Vital Signs Pulse 62 12/17/23 14:53 Resp 12 12/17/23 14:53 BP 130/78 12/17/23 14:53 Pulse Ox 96 12/17/23 14:53 Oxygen Delivery Method Room Air 12/17/23 14:53 BMI result Body Mass Index 30.2 Const General: cooperative and well developed Orientation/consciousness: patient oriented x3 Limitations: language barrier HEENT Head: Yes atraumatic Mouth: no other ( thrush) Throat: No postnasal drainage Eyes General: appearance normal, both eyes and all related structures Sclerae: sclerae normal EOM: EOMs intact bilaterally Neck Neck: Yes supple Lymphatic: no lymphadenopathy noted Chest Chest palpation & inspection: normal inspection of the chest Resp Effort & Inspection: normal respiratory effort, able to speak in complete sentences, normal respiratory pattern, no audible wheezes, no cough and decreased respiratory effort Cardio Jugular venous distension: no JVD GI Inspection: Yes normal to inspection Neuro General: patient oriented x3 Extrem General: No clubbing, No cyanosis and Yes edema (symmetric b/l LE pitting edema.) Assessment & Plan Assessment & Plan (1) Vertebrogenic low back pain: Code(s): M54.51 - Vertebrogenic low back pain (2) Lumbar back pain with radiculopathy affecting right lower extremity: Code(s): M54.16 - Radiculopathy, lumbar region (3) Sacroiliac joint dysfunction of right side: Code(s): M53.3 - Sacrococcygeal disorders, not elsewhere classified (4) Sacroiliitis: Code(s): M46.1 - Sacroiliitis, not elsewhere classified (5) Disc degeneration, lumbar: Code(s): M51.36 - Other intervertebral disc degeneration, lumbar region (6) Spondylosis of lumbar spine: Code(s): M47.816 - Spondylosis without myelopathy or radiculopathy, lumbar region (7) Chronic pain syndrome: Code(s): G89.4 - Chronic pain syndrome (8) Generalized osteoarthritis: Code(s): M15.9 - Polyosteoarthritis, unspecified Plan: MRI is done and Modic type changes discovered but they are much less pronounced that I thought it would be. I will wait for the radiologist reading of the consult. We will read the pain pump today and it appears to be functioning appropriately after the MRI. (9) Edema of both lower extremities: Code(s): R60.0 - Localized edema Plan: An Plan Next appointment will be scheduled in 2 weeks. Coding Level of Care Code Est Pt Level 3 (51941) Diagnoses Vertebrogenic low back pain M54.51 Lumbar back pain with radiculopathy affecting right lower extremity M54.16 Sacroiliac joint dysfunction of right side M53.3 Sacroiliitis M46.1 Disc degeneration, lumbar M51.36 Spondylosis of lumbar spine M47.816 Chronic pain syndrome G89.4 Generalized osteoarthritis M15.9 Edema of both lower extremities R60.0
[2023-12-17 14:53] VITALS: BP 130/78; PULSE 62; RESP 12; O2SAT 96; BMI 30.2
== END 2023-12-17 14:56 | disposition home or self-care (01) ==
PROVIDERS: PCP Internal Medicine; Visit Provider Anesthesiology
DX: M54.51 Vertebrogenic low back pain (principal); M54.16 Radiculopathy, lumbar region; M53.3 Sacrococcygeal disorders, not elsewhere classified; M46.1 Sacroiliitis, not elsewhere classified; M51.36 Other intervertebral disc degeneration, lumbar region; M47.816 Spondylosis without myelopathy or radiculopathy, lumbar region; G89.4 Chronic pain syndrome; M15.9 Polyosteoarthritis, unspecified; R60.0 Localized edema
CPT/HCPCS: 99213

== ENCOUNTER 2023-12-24 12:32 | Outpatient (REF) | payer OTHER, SELFPAY ==
[2023-12-24 14:44] LABS: Anion Gap 15 (12-20); Blood Urea Nitrogen 13 mg/dL (9-16); Calcium 9.4 mg/dL (8.4-10.2); Carbon Dioxide 30 mmol/L (22-29); Chloride 102 mmol/L (96-108); Cholesterol 186 mg/dL (<200); Estimated Glomerular Filt Rate 46; Glucose Random 118 mg/dL (60-115); HDL Cholesterol 66 mg/dL (>40); LDL Cholesterol Calculated 52 mg/dL (<100); Potassium 3.8 mmol/L (3.3-5.1); Sodium 143 mmol/L (135-145); Triglycerides 344 mg/dL (<150)
== END 2023-12-24 12:33 | disposition home or self-care (01) ==
LOC: HO.HHCL 12:32
PROVIDERS: Visit Provider Internal Medicine
DX: I10 Essential (primary) hypertension (principal)
CPT/HCPCS: 36415; 80048; 80061

== ENCOUNTER 2023-12-24 15:25 | Outpatient (REF) | payer OTHER, SELFPAY ==
[2023-12-25 17:21] LABS: CDiff Gene PCR NEGATIVE (Negative)
== END 2023-12-24 15:26 | disposition home or self-care (01) ==
LOC: HO.LNP 15:25
PROVIDERS: Visit Provider Internal Medicine Gastroenterology
DX: R19.7 Diarrhea, unspecified (principal); I10 Essential (primary) hypertension
CPT/HCPCS: 87177; 87209; 87493

== ENCOUNTER 2024-01-03 12:52 | Outpatient (AMB) | payer OTHER, SELFPAY ==
--- NOTE | 2024-01-03 12:58 | A.OFFVIS_ITS ---
Intake Vital Signs 01/03/24 14:12 Height 5 ft 2 in Weight 169 lb 2 oz BMI 30.9 BP 136/68 Blood Pressure Location Lt brachial Position Sitting Respiration 14 Pulse 74 Pulse Source Pulse Oximeter Pulse Oximetry (%) 97 Oxygen Delivery Method Room Air Intake Visit Reasons: ITDD Refill Intake Note: Patient comes in for intrathecal medication refill. Reports pain 07/17. Allergies No Known Allergies Allergy (Verified 01/03/24 14:13) HPI HPI Comments History of Present Illness Details Norma is a very pleasant 62 year old female who is today in my office for a refill of the pain pump. She reports severe unbearable pain in the axial lower back which is exacerbated by flexing forward as well as flexing backwards. She unbearable pain with activities, she reports difficulty lifting objects from the ground. She reports pain exacerbated with sitting upright, she reports that she needs to lean backwards to make her pain to be felt better. She went for the MRI of the lumbar spine dictation of which reported as below. On the MRI they were significant Modic type 1 changes in the projection of the L3, L4, L5, and S1 vertebra. She has spinal cord stimulator and pain pump implanted. It could be difficult to perform the procedure intercept however I told her that I am willing to try to do the procedure, I do not know the outcome but I will do my best in the attempt to alleviate her pain. I also increase today continuous opioid plus bupivacaine intrathecal medication, patient reports some pain relief for about 1 hour after administering PTM bolus however when she is between the boluses she reports her pain is unbearable. See description of the refill as below. [facility] Medical History Lumbar back pain with radiculopathy affecting right lower extremity Sacroiliac joint dysfunction of right side Sacroiliitis Disc degeneration, lumbar HPV test positive Chronic pain syndrome Acute blood loss anemia Hypertension Osteoarthritis of right knee MENDENHALL (dyspnea on exertion) Presence of dental bridge Sleep apnea Diabetes Overflow stress urinary incontinence in female Urge incontinence Primary osteoarthritis of hands, bilateral Loose right total knee arthroplasty Hx of carpal tunnel syndrome Pulmonary nodules Asthma-COPD overlap syndrome GERD (gastroesophageal reflux disease) Surgical History Hx of tubal ligation H/O knee surgery History of orthopedic surgery History of arthroplasty of right knee History of pubovaginal sling Hx of colonoscopy History of carpal tunnel release of both wrists History of esophagogastroduodenoscopy (EGD) Previous back surgery History of endometrial ablation Hx of section Family History Mother Diabetes Arthritis Brother Cancer Paternal Aunt Breast cancer Social History Household Members: None Housing: Apartment Are you a primary home care associate to a significant other at home: No Do you presently have visiting nurse or other home services: Yes (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 [employer]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) Alcohol intake: former Year quit: 2017 Comment: pt sleeping Patient Tobacco Use Status: Current everyday Tobacco user Tobacco use type: Cigarette Cigarettes Per Day: 5 Years Smoked: 2014 Substance Use Type: Crack/Cocaine and Marijuana service: No Current occupational status: disabled Female Reproductive History Menstrual Age of Menarche: 11 Review of Systems Const All systems reviewed & are unremarkable except as noted in HPI and below Physical Exam Vital Signs: Last Vital Signs Pulse 74 01/03/24 14:12 Resp 14 01/03/24 14:12 BP 136/68 01/03/24 14:12 Pulse Ox 97 01/03/24 14:12 Oxygen Delivery Method Room Air 01/03/24 14:12 BMI result Body Mass Index 30.9 Const General: cooperative and well developed Orientation/consciousness: patient oriented x3 Limitations: language barrier HEENT Head: Yes atraumatic Mouth: no other ( thrush) Throat: No postnasal drainage Eyes General: appearance normal, both eyes and all related structures Sclerae: sclerae normal EOM: EOMs intact bilaterally Neck Neck: Yes supple Lymphatic: no lymphadenopathy noted Chest Chest palpation & inspection: normal inspection of the chest Resp Effort & Inspection: normal respiratory effort, able to speak in complete sentences, normal respiratory pattern, no audible wheezes, no cough and decreased respiratory effort Cardio Jugular venous distension: no JVD GI Inspection: Yes normal to inspection Neuro General: patient oriented x3 Extrem General: No clubbing, No cyanosis and Yes edema (symmetric b/l LE pitting edema.) Results Reviewed Results Reviewed: MRI of the lumbar spine was obtained using routine sequences without contrast. FINDINGS: CORONAL ALIGNMENT: Mild lower thoracic dextrocurvature partially imaged, similar to previous exam with trace mid lumbar levocurvature, unchanged. SAGITTAL ALIGNMENT: 3.5 mm of grade 1 spondylolisthesis at L4-L5 has progressed from the previous study. Trace anterolisthesis at L3-L4 and L2-L3 are stable. Otherwise, normal lumbar lordotic curvature. LUMBOSACRAL JUNCTION: Transitional lumbosacral anatomy with lowest lumbar-like segment labeled as L5, which appears partially sacralized on the left. VERTEBRAL BODIES: Stable vertebral body heights. No interval compression fractures. DISC SPACES AND ENDPLATES: Ncwnwwab-vr-wrlybn intervertebral disc space height loss at L4-L5 has progressed from the previous exam, with progression of a central Schmorl's nodes, intradiscal degenerative changes and spondylosis. Smut-us-sjycguib disc volume loss at L3-L4 slightly progressed with prominent anterolateral spondylosis deformans, similar to previous exam, and disc desiccation. Stable disc space heights at L1-L2 and L3-L4 with stable spondylosis and disc desiccation. Anterior marginal spondylosis at the T12-L1 is stable with disc desiccation. Stable Schmorl's nodes along the superior endplate of L1 and along the endplates centrally at T11-T12. SPINAL CANAL: Moderately prominent epidural fat throughout the lumbar canal appears somewhat more prominent than on the previous exam. BONE MARROW: There are type I degenerative marrow signal changes seen along the endplates at L3-L4 and L4-L5 progressed from the previous study. Minimal type I marrow signal changes along the endplates at L1-L2 and L2-L3 are also slightly more prominent. Note that there is susceptibility artifact related to a spinal stimulator device partially obscuring portions of the pelvis on the right. No focally suspicious marrow replacing process or bone marrow edema. CONUS MEDULLARIS: Terminates at L1. Morphology and signal is normal. INTRADURAL NERVE ROOTS: Within normal limits. L5-S1: Normal annular contour. Molv-zn-wuzrlfwe facet joint arthrosis, left more than right similar to previous exam. On current study, there is a 5 mm ovoid subligamentous synovial cyst along the medial aspect of the left facet joint, which is a new finding without neural impingement. No significant canal or neural foraminal stenosis. L4-L5: Unroofing of the posterior disc margin progressed from previous exam with superimposed concentric disc bulging progressed from previous study. Flattening the ventral dural sac is progressed. Ligamentum flavum thickening and severe bilateral facet joint arthrosis is slightly progressed. Prominent dorsal fat pad also appears slightly more prominent, now with kapwcemr-wb-suqrun central spinal canal stenosis with crowding of the intradural nerve roots progressed from previous study. Mild bilateral lateral recess stenosis progressed from previous exam without definite neural impingement. Pyei-vs-ouszrxnq bilateral neural foraminal stenosis slightly progressed, with disc bulging abutting the exiting L4 nerve roots bilaterally. L3-L4: Diffuse disc bulging is slightly progressed. Flattening of the ventral dural sac slightly progressed. Prominent dorsal fat pad progressed from previous exam with avjfckdy-op-lkebqk bilateral facet hypertrophic degenerative changes and interspinous ligament degeneration, similar to prior exam. There is moderate central spinal canal stenosis progressed from previous exam and there is moderate left and ryuj-kj-yqwexxpf right-sided neural foraminal stenosis minimally progressed on the left and stable on the right. L2-L3: There is disc bulging with a superimposed left-sided foraminal/extraforaminal disc protrusion, stable in appearance. Mild flattening of the dural sac is stable with stable prominent dorsal fat pad and moderate bilateral facet arthropathy. Mild canal stenosis is stable and there is a stable rbmn-wt-ocbwcvwy neural foraminal narrowing, right more than left. L1-L2: Concentric disc bulging with flattening of the dural sac is stable. Mild facet arthropathy is stable. There is susceptibility artifact in the dorsal epidural space similar to previous exam related to spinal stimulator leads entering at this level. No significant canal stenosis. Mild foraminal narrowing noted bilaterally without neural impingement, unchanged. T12-L1: Susceptibility artifact noted distorting the posterior dural sac related to spinal stimulator leads but no significant canal or neural foraminal stenosis on the sagittal T1-weighted images. Minor facet arthropathy noted bilaterally at this level. Spinal stimulator leads extending cephalad along the dorsal epidural space up to the level of the highest level imaged. PARAVERTEBRAL AND INCLUDED EXTRASPINAL SOFT TISSUES: There is posterior paraspinal and psoas muscle sarcopenia. Otherwise unremarkable. MR/MR lumbar spine wo con IMPRESSION: 1. Progression of grade 1 degenerative spondylolisthesis at L4-L5 with progression of disc bulging at this level and progression of posterior element hypertrophic degenerative changes, now with moderate to severe spinal canal stenosis with crowding of the intradural nerve roots progressed from previous exam and stable miuq-ue-njtgdlon bilateral neural foraminal stenosis with disc bulging abutting the exiting L4 nerve roots bilaterally. 2. Stable disc bulging and left lateral foraminal/extraforaminal disc protrusion at L2-L3 with stable mild spinal canal stenosis and stable asnw-dm-keqxukhy neural foraminal narrowing, right more than left. Progression of disc bulging at L3-L4 and progression of the dorsal fat pad with moderate central spinal canal stenosis progressed from previous exam at this level. 3. Disc bulging and facet arthropathy L1-L2 is stable in appearance. 4. Multilevel bilateral facet joint arthrosis as described above, with progression of epidural fat at L3-L4 and L4-L5. Multilevel bilateral neural foraminal stenosis as detailed by level above. 5. Spinal stimulator leads as described above. 6. Paraspinal and psoas muscle sarcopenia. Assessment & Plan Assessment & Plan (1) Vertebrogenic low back pain: Code(s): M54.51 - Vertebrogenic low back pain Plan: (2) Lumbar back pain with radiculopathy affecting right lower extremity: Code(s): M54.16 - Radiculopathy, lumbar region (3) Sacroiliac joint dysfunction of right side: Code(s): M53.3 - Sacrococcygeal disorders, not elsewhere classified (4) Sacroiliitis: Code(s): M46.1 - Sacroiliitis, not elsewhere classified (5) Disc degeneration, lumbar: Code(s): M51.36 - Other intervertebral disc degeneration, lumbar region (6) Spondylosis of lumbar spine: Code(s): M47.816 - Spondylosis without myelopathy or radiculopathy, lumbar region (7) Chronic pain syndrome: Code(s): G89.4 - Chronic pain syndrome Plan: Intrathecal pump refill. THE PATIENT CAME TODAY IN THE office FOR THE CHANGE OF THE MEDICATION IN her PAIN PUMP. The name and date of were verified and informed consent was obtained for the procedure. ?The pump was interrogated and the residual amount of fluid was found to be 6.0 mL. SHE WAS POSITIONED prone on the bed AND THE AREA OF THE INTRATHECAL PUMP WAS PREPPED WITH CHLORAPREP. The fenestrated drape was sterilely applied over the area of the pump. Sterile gloves were worn and of the aspiration system was assembled containing 2 in 22 gauge noncoring needle, the needle was connected to extension tubing which was connected to the 20 cc sterile syringe. The pain pump was palpated under the skin in the patient's right buttock area. The needle was inserted through the skin and the central plug of the pain pump and fluid was aspirated. The clear fluid was going into the syringe the total amount of the fluid was 7.0 mL .. After that a new batch? of medication was obtained which was containing hydromorphone in concentration 1000 micro g/ml and bupivacaine 30 mg per ml. The admixture was made in 20 cc syringe prepared by [facility] compounding pharmacy. The syringe was connected to the bacterial filter, and then connected to the extension tubing. After that the medication in the syringe was slowly instilled into the pump with aspirations at 15 and 5 cc fajardo.? The pump was reprogrammed with the doses of 100 mg per day with corresponding dose of bupivacaine of the continuous medication to stay the same as the last time. The corresponding dose of the bupivacaine is 1.2 mg per day. she will be able to receive every 3 hours as previously the dose of hydromorphone 85 micro g of hydromorphone and 1.9 mg of bupivacaine on demand 5 times in 24 hour period. (6) Chronic pain syndrome: (8) Generalized osteoarthritis: Code(s): M15.9 - Polyosteoarthritis, unspecified Plan: MRI is done and Modic type changes discovered . I offered this patient intercept procedure. She agreed to go for the procedure. I explained to the patient that due to significant hardware issues comprising of intrathecal pain pump and spinal cord stimulator the procedure could be difficult to perform. Patient agreed to go for the procedure. Because the procedure is radiofrequency ablation we would need to perform this procedure with her spinal cord stimulator turned off. (9) Edema of both lower extremities: Code(s): R60.0 - Localized edema Plan: An Plan Patient Instructions: I here by testify that I spent 38 minutes in conversation with this patient as well as evaluating her prior records, evaluating her current images, planning her care and organizing her note. I also spent some time filling up and reprogramming her intrathecal pain pump as above. Coding Level of Care Code Est Pt Level 4 (55825) Procedure Only Diagnoses Vertebrogenic low back pain M54.51 Lumbar back pain with radiculopathy affecting right lower extremity M54.16 Sacroiliac joint dysfunction of right side M53.3 Sacroiliitis M46.1 Disc degeneration, lumbar M51.36 Spondylosis of lumbar spine M47.816 Chronic pain syndrome G89.4 Generalized osteoarthritis M15.9 Edema of both lower extremities R60.0
[2024-01-03 14:12] VITALS: BP 136/68; PULSE 74; RESP 14; O2SAT 97; BMI 30.9
== END 2024-01-03 13:49 | disposition home or self-care (01) ==
PROVIDERS: PCP Internal Medicine; Visit Provider Anesthesiology
DX: M54.51 Vertebrogenic low back pain (principal); M54.16 Radiculopathy, lumbar region; M53.3 Sacrococcygeal disorders, not elsewhere classified; Z45.1 Encounter for adjustment and management of infusion pump; M46.1 Sacroiliitis, not elsewhere classified; M51.36 Other intervertebral disc degeneration, lumbar region; M47.816 Spondylosis without myelopathy or radiculopathy, lumbar region; G89.4 Chronic pain syndrome; M15.9 Polyosteoarthritis, unspecified; R60.0 Localized edema
CPT/HCPCS: 62370; 99214

== ENCOUNTER → 2024-01-03 12:52 | Outpatient (BNVA) | payer OTHER, SELFPAY | PROVIDERS: PCP Internal Medicine; Visit Provider Anesthesiology | DX: Z45.1 Encounter for adjustment and management of infusion pump (principal); M54.51 Vertebrogenic low back pain; M53.3 Sacrococcygeal disorders, not elsewhere classified; M46.1 Sacroiliitis, not elsewhere classified; M51.36 Other intervertebral disc degeneration, lumbar region; M47.816 Spondylosis without myelopathy or radiculopathy, lumbar region; G89.4 Chronic pain syndrome; M15.9 Polyosteoarthritis, unspecified; R60.0 Localized edema | CPT/HCPCS: 62370; 99212 ==

== ENCOUNTER 2024-01-15 14:06 | Outpatient (AMB) | payer OTHER, SELFPAY ==
[2024-01-15 14:10] VITALS: BP 111/58; PULSE 102; O2SAT 97; BMI 31.8
--- NOTE | 2024-01-15 14:10 | A.OFFVIS_ITS ---
Intake Vital Signs 01/15/24 14:10 Height 5 ft 2 in Weight 174 lb BMI 31.8 BP 111/58 L Blood Pressure Location Rt brachial Position Sitting Pulse 102 H Pulse Source Doppler Pulse Oximetry (%) 97 Oxygen Delivery Method Room Air Intake Visit Reasons: COPD Underwear Trimmer Required: Yes Underwear Trimmer Name: Nida Dmitriy Baxter Allergies No Known Allergies Allergy (Verified 01/03/24 14:13) HPI COPD HPI Details 63-year-old lady, former 35 pack year sm oker, quit 2018 followed dyspnea on exertion and asthma/COPD with symptoms previously controlled on Trelegy, unfortunately patient can no longer tolerate powder inhalers and she has been relying solely on albuterol MDI with suboptimal control of her symptoms. She does complain of an acute exacerbation at this time. [facility] Medical History (Updated 01/15/24 @ 14:58 by Denny Guillen MD) Asthma-COPD overlap syndrome Lumbar back pain with radiculopathy affecting right lower extremity Sacroiliac joint dysfunction of right side Sacroiliitis Disc degeneration, lumbar HPV test positive Chronic pain syndrome Acute blood loss anemia Hypertension Osteoarthritis of right knee MENDENHALL (dyspnea on exertion) Presence of dental bridge Sleep apnea Diabetes Overflow stress urinary incontinence in female Urge incontinence Primary osteoarthritis of hands, bilateral Loose right total knee arthroplasty Hx of carpal tunnel syndrome Pulmonary nodules GERD (gastroesophageal reflux disease) Surgical History Hx of tubal ligation H/O knee surgery History of orthopedic surgery History of arthroplasty of right knee History of pubovaginal sling Hx of colonoscopy History of carpal tunnel release of both wrists History of esophagogastroduodenoscopy (EGD) Previous back surgery History of endometrial ablation Hx of section Family History Mother Diabetes Arthritis Brother Cancer Paternal Aunt Breast cancer Social History Household Members: None Housing: Apartment Are you a primary veterinarian laboratory animal care to a significant other at home: No Do you presently have visiting nurse or other home services: Yes (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) Alcohol intake: former Year quit: 2017 Comment: pt sleeping Patient Tobacco Use Status: Current everyday Tobacco user Tobacco use type: Cigarette Cigarettes Per Day: 5 Years Smoked: 2014 Substance Use Type: Crack/Cocaine and Marijuana service: No Current occupational status: disabled Female Reproductive History Menstrual Age of Menarche: 11 Review of Systems Const Denies daytime sleepiness, Denies excessive sweating, Denies fatigue, Denies fever(s), Denies lethargy, Denies malaise, Denies night sweats, Denies snoring and Denies weight loss Eyes Denies blurry vision and Denies itchy eyes ENT Denies nasal congestion, Denies post nasal drip, Denies sinus pain, Denies sinus pressure and Denies other ( Thrush) Card Denies chest pain, Denies pedal edema, Denies dyspnea, Denies orthopnea and Denies paroxysmal nocturnal dyspnea Resp Denies cough, Denies hemoptysis, Denies excessive phlegm production, Denies dyspnea, Denies snoring and Reports wheezing GI Denies abdominal pain and Denies heartburn Musc Denies myalgias, Denies arthralgias and Denies joint swelling Skin/Breast Denies rash Neuro Denies memory loss and Denies seizure-like activity Psych Denies abnormal sleep pattern, Denies anxiety and Denies memory loss Endo Denies excessive sweating, Denies fatigue and Denies heat intolerance Jim/Lymph Denies easy bruising Aller/Immun Denies itchy eyes, Denies seasonal rhinorrhea and Reports wheezing Physical Exam Vital Signs: Last Vital Signs Pulse 102 H 01/15/24 14:10 BP 111/58 L 01/15/24 14:10 Pulse Ox 97 01/15/24 14:10 Oxygen Delivery Method Room Air 01/15/24 14:10 BMI result Body Mass Index 31.8 Const General: no acute distress and alert Nutritional Appearance: not obese Orientation/consciousness: Other orientation findings ( oriented) HEENT Head: Yes atraumatic Eyes General: appearance normal, both eyes and all related structures Sclerae: sclerae normal EOM: EOMs intact bilaterally Neck Neck: Yes supple Lymphatic: no lymphadenopathy noted Resp Effort & Inspection: normal respiratory effort and no use of accessory muscles Auscultation: wheezes expiratory wheezes (Bilateral) Cardio Rate: regular rate Rhythm: regular rhythm Heart sounds: no gallops, no murmurs and no rubs Skin General skin exam: other ( warm) Extrem General: No clubbing, No cyanosis and No edema Assessment & Plan Assessment & Plan (1) Asthma-COPD overlap syndrome: Comment: Stable at last pulmonary visit 09/2020 Code(s): J44.9 - Chronic obstructive pulmonary disease, unspecified Plan: Suboptimally controlled as patient can not tolerate powder inhalers. Will switch to nebulized Brovana and budesonide. Continue albuterol MDI. Will treat acute exacerbation with a course of prednisone. (2) Personal history of nicotine dependence: Code(s): Z87.891 - Personal history of nicotine dependence Plan: Will refer to lung cancer screening. Orders: Orders CT lung screening Today Z87.891 - Personal history of nicotine dependence Medications: New arformoterol (Brovana) 2 mL inhalation BID 120 mL 6RF 30 days budesonide 0.5 mg (2 mL) inhalation BID 120 mL 6RF 30 days prednisone 40 mg (2 x 20 mg) PO DAILY 10 tabs 0RF Discontinued rwlyokrvyvu-fxtzcvzvb-nmtpdlsy 100-62.5-25 mcg (Trelegy Ellipta) Discontinued Reason: Doctor's Order 1 inh inhalation DAILY 30 days 1 ea 6RF Coding Level of Care Code Est Pt Level 4 (54091) Diagnoses Asthma-COPD overlap syndrome J44.9 Personal history of nicotine dependence Z87.891
== END 2024-01-15 14:28 | disposition home or self-care (01) ==
PROVIDERS: PCP Internal Medicine; Visit Provider Internal Medicine Pulmonary Disease
DX: J44.9 Chronic obstructive pulmonary disease, unspecified (principal); Z87.891 Personal history of nicotine dependence
CPT/HCPCS: 99214

== ENCOUNTER → 2024-01-15 14:06 | Outpatient (BNVA) | payer OTHER, SELFPAY | PROVIDERS: PCP Internal Medicine; Visit Provider Internal Medicine Pulmonary Disease | DX: J44.9 Chronic obstructive pulmonary disease, unspecified (principal); F17.210 Nicotine dependence, cigarettes, uncomplicated | CPT/HCPCS: 99212 ==

== ENCOUNTER 2024-01-29 11:53 | Outpatient (AMB) | payer OTHER, SELFPAY ==
[2024-01-29 11:55] VITALS: BP 98/50; PULSE 106; O2SAT 97; BMI 32.0
--- NOTE | 2024-01-29 11:55 | HO.NEPHOV ---
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 She was on meloxicam in the past which has been discontinued. She is being managed by pain management. As for the blood pressure she is on losartan 100 mg and chlorthalidone 50 mg a day. She is compliant with her medications. Today she is complaining of low back pain. No urinary symptoms No polyuria polydipsia. No shortness of breath. [facility] Medical History (Updated 01/29/24 @ 15:04 by Kalen Negrete MD) Asthma-COPD overlap syndrome Lumbar back pain with radiculopathy affecting right lower extremity Sacroiliac joint dysfunction of right side Sacroiliitis Disc degeneration, lumbar HPV test positive Chronic pain syndrome Acute blood loss anemia Hypertension Osteoarthritis of right knee MENDENHALL (dyspnea on exertion) Presence of dental bridge Sleep apnea Diabetes Overflow stress urinary incontinence in female Urge incontinence Primary osteoarthritis of hands, bilateral Loose right total knee arthroplasty Hx of carpal tunnel syndrome Pulmonary nodules GERD (gastroesophageal reflux disease) Surgical History Hx of tubal ligation H/O knee surgery History of orthopedic surgery History of arthroplasty of right knee History of pubovaginal sling Hx of colonoscopy History of carpal tunnel release of both wrists History of esophagogastroduodenoscopy (EGD) Previous back surgery History of endometrial ablation Hx of section Family History Mother Diabetes Arthritis Brother Cancer Paternal Aunt Breast cancer Social History Household Members: None Housing: Apartment Are you a primary patient care manager to a significant other at home: No Do you presently have visiting nurse or other home services: Yes (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) Alcohol intake: former Year quit: 2017 Comment: pt sleeping Patient Tobacco Use Status: Current everyday Tobacco user Tobacco use type: Cigarette Cigarettes Per Day: 5 Years Smoked: 2014 Substance Use Type: Crack/Cocaine and Marijuana service: No Current occupational status: disabled Female Reproductive History Menstrual Age of Menarche: 11 Physical Exam Vital Signs: Last Vital Signs Pulse 106 H 01/29/24 11:55 BP 98/50 L 01/29/24 11:55 Pulse Ox 97 01/29/24 11:55 Oxygen Delivery Method Room Air 01/29/24 11:55 BMI result Body Mass Index 32.0 Results Reviewed Nephrology Results: Sodium 143 mmol/L (135-145) 12/24/23 Potassium 3.8 mmol/L (3.3-5.1) 12/24/23 Chloride 102 mmol/L (96-108) 12/24/23 Carbon Dioxide 30 mmol/L (22-29) H 12/24/23 BUN 13 mg/dL (9-16) 12/24/23 Creatinine 1.18 mg/dL (0.5-1.4) 12/24/23 Calcium 9.4 mg/dL (8.4-10.2) 12/24/23 Assessment & Plan Assessment & Plan (1) CKD (chronic kidney disease): Code(s): N18.9 - Chronic kidney disease, unspecified Category: Medical (2) Proteinuria: Code(s): R80.9 - Proteinuria, unspecified Category: Medical Plan 63-year-old man with chronic kidney disease and proteinuria in a setting of hypertension obesity and diabetes mellitus. Recent urine microarray creatinine ratio was 333. She probably has underlying diabetic hypertensive kidney disease. She might have a component of acute kidney injury from hypoperfusion. She is on adequate dose of losartan with a high dose of chlorthalidone and blood pressure is rather low which could be contributing to hypoperfusion. I have taken liberty of holding the chlorthalidone for now. Allow the blood pressure to optimize and if the blood pressure remains elevated I will restart chlorthalidone at a lower dose of 12.5 mg and titrate upwards as indicated. Renal function should improve once the hemodynamics improve. I have reassured her. She should avoid NSAIDs and other nephrotoxic Maintain adequate hydration. All questions were answered Orders: Orders Basic Metabolic Panel 2 Weeks N18.9 - Chronic kidney disease, unspecified Coding Level of Care Code New Pt Level 4 (61914) Diagnoses CKD (chronic kidney disease) N18.9 Proteinuria R80.9
== END 2024-01-29 12:31 | disposition home or self-care (01) ==
PROVIDERS: PCP Internal Medicine; Referring Provider Internal Medicine; Visit Provider Internal Medicine Hypertension Specialist
DX: N18.9 Chronic kidney disease, unspecified (principal); R80.9 Proteinuria, unspecified
CPT/HCPCS: 99204

== ENCOUNTER → 2024-01-29 11:53 | Outpatient (BNVA) | payer OTHER, SELFPAY | PROVIDERS: PCP Internal Medicine; Referring Provider Internal Medicine; Visit Provider Internal Medicine Hypertension Specialist | DX: I12.9 Hypertensive chronic kidney disease with stage 1 through stage 4 chronic kidney disease, or unspecified chronic kidney disease (principal); E11.22 Type 2 diabetes mellitus with diabetic chronic kidney disease; N18.31 Chronic kidney disease, stage 3a; R80.9 Proteinuria, unspecified; Z72.0 Tobacco use | CPT/HCPCS: 99202 ==

== ENCOUNTER 2024-02-11 11:15 | Outpatient (REF) | payer OTHER, SELFPAY ==
[2024-02-11 12:56] LABS: MANUAL DIFF FLAG NO
[2024-02-11 14:23] LABS: Basophils Absolute Auto 0.1 X10*3/uL (0.0-0.2); Basophils Percent Auto 0.6 % (0-2); Eosinophils Absolute Auto 0.3 X10*3/uL (0.0-0.4); Eosinophils Percent Auto 3.7 % (0-4); Hematocrit 32.4 % (37.0-47.0); Hemoglobin 10.7 g/dl (12.0-16.0); Imm Gran Abs Auto 0.02 X10*3/uL (0.00-0.03); Imm Gran Pct Auto 0.2 % (0.0-0.4); Lymphocytes Percent Auto 35.1 % (20-40); Mean Corpuscular Hemoglobin 32.4 pg (27.0-33.0); Mean Corpuscular Volume 98.2 fL (80.0-98.0); Mean Platelet Volume 11.5 fL (9.4-12.3); Monocytes Absolute Auto 0.8 X10*3/uL (0.1-1.2); Monocytes Percent Auto 9.5 % (2-11); Neutrophils Absolute Auto 4.4 x10*3/uL (2.0-8.3); Neutrophils Percent Auto 50.9 % (45-73); Platelet Count 299 X10*3/uL (160-400); Red Cell Distribution Width 13.1 % (11.0-16.0); White Blood Count 8.6 X10*3/uL (4.8-10.8)
[2024-02-11 14:54] LABS: Anion Gap 13 (12-20); Blood Urea Nitrogen 7 mg/dL (9-16); C Reactive Protein 0.47 mg/dL (< or = 0.50); Calcium 9.6 mg/dL (8.4-10.2); Carbon Dioxide 32 mmol/L (22-29); Chloride 103 mmol/L (96-108); Estimated Glomerular Filt Rate > 60; Glucose Random 119 mg/dL (60-115); Lipase 19 U/L (8-78); Potassium 4.1 mmol/L (3.3-5.1); Sodium 144 mmol/L (135-145)
[2024-02-11 15:13] LABS: Ferritin 43 ng/mL (10-250); TSH reflex Free T4 2.69 uIU/mL (0.32-4.0)
== END 2024-02-11 11:16 | disposition home or self-care (01) ==
LOC: HO.LAB 11:15
PROVIDERS: Internal Medicine Gastroenterology; Absent Provider Internal Medicine Hypertension Specialist; PCP Internal Medicine; Visit Provider Anesthesiology
DX: N18.9 Chronic kidney disease, unspecified (principal); D64.9 Anemia, unspecified; K52.9 Noninfective gastroenteritis and colitis, unspecified; M54.51 Vertebrogenic low back pain; M54.16 Radiculopathy, lumbar region; M46.1 Sacroiliitis, not elsewhere classified; M51.36 Other intervertebral disc degeneration, lumbar region; M47.816 Spondylosis without myelopathy or radiculopathy, lumbar region; G89.4 Chronic pain syndrome; M15.9 Polyosteoarthritis, unspecified; R60.0 Localized edema
CPT/HCPCS: 36415; 62370; 80048; 82728; 83690; 84443; 85025; 86140; 99212

== ENCOUNTER 2024-02-11 11:15 | Outpatient (AMB) | payer OTHER, SELFPAY ==
--- NOTE | 2024-02-11 11:16 | MHC.OFFVIS ---
Vital Signs 02/11/24 11:57 Height 5 ft 2 in Weight 181 lb 4 oz BMI 33.1 BP 146/70 H Blood Pressure Location Lt brachial Position Sitting Respiration 16 Pulse 89 Pulse Source Pulse Oximeter Pulse Oximetry (%) 97 Oxygen Delivery Method Room Air Intake Visit Reasons: ITDD Refill Intake Note: Patient comes in for intrathecal medication refill. Reports pain 8/10. Allergies Seasonal Allergies Allergy (Mild, Verified 02/11/24 11:58) Unknown HPI Comments Details: Norma is a very pleasant 62 year old female who is today in my office for a refill of the pain pump. She reports severe unbearable pain in the axial lower back which is exacerbated by flexing forward as well as flexing backwards. She unbearable pain with activities, she reports difficulty lifting objects from the ground. She reports pain exacerbated with sitting upright, she reports that she needs to lean backwards to make her pain to be felt better. We try to schedule her for BVN ablation with intercept however her insurance company considered this procedure as experimental. We will try to appeal this decision in the future. She had her intrathecal pain pump replaced and adjusted as dictated below. She went for the MRI of the lumbar spine dictation of which reported as below. On the MRI they were significant Modic type 1 changes in the projection of the L3, L4, L5, and S1 vertebra. She has spinal cord stimulator and pain pump implanted. It could be difficult to perform the procedure intercept however I told her that I am willing to try to do the procedure, I do not know the outcome but I will do my best in the attempt to alleviate her pain. I also increase today continuous opioid plus bupivacaine intrathecal medication, patient reports some pain relief for about 1 hour after administering PTM bolus however when she is between the boluses she reports her pain is unbearable. See description of the refill as below. [facility] Medical History (Updated 01/29/24 @ 15:04 by Kalen Negrete MD) Asthma-COPD overlap syndrome Lumbar back pain with radiculopathy affecting right lower extremity Sacroiliac joint dysfunction of right side Sacroiliitis Disc degeneration, lumbar HPV test positive Chronic pain syndrome Acute blood loss anemia Hypertension Osteoarthritis of right knee MENDENHALL (dyspnea on exertion) Presence of dental bridge Sleep apnea Diabetes Overflow stress urinary incontinence in female Urge incontinence Primary osteoarthritis of hands, bilateral Loose right total knee arthroplasty Hx of carpal tunnel syndrome Pulmonary nodules GERD (gastroesophageal reflux disease) Surgical History Hx of tubal ligation H/O knee surgery History of orthopedic surgery History of arthroplasty of right knee History of pubovaginal sling Hx of colonoscopy History of carpal tunnel release of both wrists History of esophagogastroduodenoscopy (EGD) Previous back surgery History of endometrial ablation Hx of section Family History Mother Diabetes Arthritis Brother Cancer Paternal Aunt Breast cancer Social History Household Members: None Housing: Apartment Are you a primary care professional to a significant other at home: No Do you presently have visiting nurse or other home services: 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) Alcohol intake: former Year quit: 2017 Comment: pt sleeping Patient Tobacco Use Status: Current everyday Tobacco user Tobacco use type: Cigarette Cigarettes Per Day: 5 Years Smoked: 2014 Substance Use Type: Crack/Cocaine and Marijuana service: No Current occupational status: disabled Female Reproductive History Menstrual Age of Menarche: 11 Review of Systems Const All systems reviewed & are unremarkable except as noted in HPI and below Physical Exam Vital Signs: Last Vital Signs Pulse 89 02/11/24 11:57 Resp 16 02/11/24 11:57 BP 146/70 H 02/11/24 11:57 Pulse Ox 97 02/11/24 11:57 Oxygen Delivery Method Room Air 02/11/24 11:57 BMI result Body Mass Index 33.1 Const General: cooperative and well developed Orientation/consciousness: patient oriented x3 Limitations: language barrier HEENT Head: Yes atraumatic Mouth: no other ( thrush) Throat: No postnasal drainage Eyes General: appearance normal, both eyes and all related structures Sclerae: sclerae normal EOM: EOMs intact bilaterally Neck Neck: Yes supple Lymphatic: no lymphadenopathy noted Chest Chest palpation & inspection: normal inspection of the chest Resp Effort & Inspection: normal respiratory effort, able to speak in complete sentences, normal respiratory pattern, no audible wheezes, no cough and decreased respiratory effort Cardio Jugular venous distension: no JVD GI Inspection: Yes normal to inspection Neuro General: patient oriented x3 Extrem General: No clubbing, No cyanosis and Yes edema (symmetric b/l LE pitting edema.) Assessment & Plan Assessment & Plan (1) Vertebrogenic low back pain: Code(s): M54.51 - Vertebrogenic low back pain Category: Medical Plan: (2) Lumbar back pain with radiculopathy affecting right lower extremity: Code(s): M54.16 - Radiculopathy, lumbar region Category: Medical (3) Sacroiliac joint dysfunction of right side: Code(s): M53.3 - Sacrococcygeal disorders, not elsewhere classified Category: Medical (4) Sacroiliitis: Code(s): M46.1 - Sacroiliitis, not elsewhere classified Category: Medical (5) Disc degeneration, lumbar: Code(s): M51.36 - Other intervertebral disc degeneration, lumbar region Category: Medical (6) Spondylosis of lumbar spine: Code(s): M47.816 - Spondylosis without myelopathy or radiculopathy, lumbar region Category: Medical (7) Chronic pain syndrome: Code(s): G89.4 - Chronic pain syndrome Category: Medical Plan: Intrathecal pump refill. THE PATIENT CAME TODAY IN THE office FOR THE CHANGE OF THE MEDICATION IN her PAIN PUMP. The name and date of were verified and informed consent was obtained for the procedure. ?The pump was interrogated and the residual amount of fluid was found to be 2.9 mL. SHE WAS POSITIONED prone on the bed AND THE AREA OF THE INTRATHECAL PUMP WAS PREPPED WITH CHLORAPREP. The fenestrated drape was sterilely applied over the area of the pump. Sterile gloves were worn and of the aspiration system was assembled containing 2 in 22 gauge noncoring needle, the needle was connected to extension tubing which was connected to the 20 cc sterile syringe. The pain pump was palpated under the skin in the patient's right buttock area. The needle was inserted through the skin and the central plug of the pain pump and fluid was aspirated. The clear fluid was going into the syringe the total amount of the fluid was 4.0 mL .. After that a new batch? of medication was obtained which was containing hydromorphone in concentration 1000 micro g/ml and bupivacaine 30 mg per ml. The admixture was made in 20 cc syringe prepared by [facility]. The syringe was connected to the bacterial filter, and then connected to the extension tubing. After that the medication in the syringe was slowly instilled into the pump with aspirations at 15 and 5 cc fajardo.? The pump was reprogrammed with the doses of 100 mg per day with corresponding dose of bupivacaine of the continuous medication to stay the same as the last time. The corresponding dose of the bupivacaine is 1.2 mg per day. she will be able to receive every 3 hours as previously the dose of hydromorphone which was increased today to 100 micro g of hydromorphone and 2.999 mg of bupivacaine on demand 5 times in 24 hour period. (6) Chronic pain syndrome: (8) Generalized osteoarthritis: Code(s): M15.9 - Polyosteoarthritis, unspecified Category: Medical Plan: MRI is done and Modic type changes discovered . I offered this patient intercept procedure. She agreed to go for the procedure. Unfortunately her insurance company consider this procedure experimental. We would need to a pill this decision. (9) Edema of both lower extremities: Code(s): R60.0 - Localized edema Category: Medical Plan: An Plan Coding Level of Care Code Est Pt Level 3 (24733) Procedure Only Diagnoses Vertebrogenic low back pain M54.51 Lumbar back pain with radiculopathy affecting right lower extremity M54.16 Sacroiliac joint dysfunction of right side M53.3 Sacroiliitis M46.1 Disc degeneration, lumbar M51.36 Spondylosis of lumbar spine M47.816 Chronic pain syndrome G89.4 Generalized osteoarthritis M15.9 Edema of both lower extremities R60.0
[2024-02-11 11:57] VITALS: BP 146/70; PULSE 89; RESP 16; O2SAT 97; BMI 33.1
== END 2024-02-11 11:56 | disposition home or self-care (01) ==
PROVIDERS: PCP Internal Medicine; Visit Provider Anesthesiology
DX: M54.51 Vertebrogenic low back pain (principal); M54.16 Radiculopathy, lumbar region; M53.3 Sacrococcygeal disorders, not elsewhere classified; M46.1 Sacroiliitis, not elsewhere classified; Z45.1 Encounter for adjustment and management of infusion pump; M51.36 Other intervertebral disc degeneration, lumbar region; M47.816 Spondylosis without myelopathy or radiculopathy, lumbar region; G89.4 Chronic pain syndrome; M15.9 Polyosteoarthritis, unspecified; R60.0 Localized edema
CPT/HCPCS: 62370; 99213

== ENCOUNTER 2024-02-18 12:20 | Outpatient (REF) | payer OTHER, SELFPAY ==
[2024-02-18 14:11] LABS: Appearance Urine Clear; Color Urine Yellow; Glucose Urine UA Negative (Negative); Leukocyte Esterase Urine Trace (Negative); Nitrite Urine Negative (Negative); Specific Gravity - Urine <= 1.005 (1.005-1.025); UMIC TRIGGER UA YES; Urine Blood Negative (Negative); Urine Ketones Negative (Negative); Urine Protein Negative (Neg-Trace)
[2024-02-18 14:15] LABS: Bacteria Urine None Seen (None Seen); Hyaline Casts Urine 0-2 /LPF (0-2); RBC Urine 0-2 /HPF (0-2); WBC Urine 0-5 /HPF (0-5)
[2024-02-18 14:27] LABS: Total Protein Urine Random < 7 mg/dL (<12)
== END 2024-02-18 12:21 | disposition home or self-care (01) ==
LOC: HO.LAB 12:20
PROVIDERS: PCP Internal Medicine; Visit Provider Internal Medicine Hypertension Specialist
DX: R80.9 Proteinuria, unspecified (principal); N05.9 Unspecified nephritic syndrome with unspecified morphologic changes
CPT/HCPCS: 81001; 81003; 82570; 84156; 99212

== ENCOUNTER 2024-02-18 12:20 | Outpatient (AMB) | payer OTHER, SELFPAY ==
--- NOTE | 2024-02-18 12:20 | HO.NEPHOV ---
Vital Signs 02/18/24 12:21 Height 5 ft 2 in Weight 185 lb BMI 33.8 BP 120/60 Blood Pressure Location Rt femoral Position Sitting Pulse 97 Pulse Source Pulse Oximeter Pulse Oximetry (%) 97 Oxygen Delivery Method Room Air Intake Visit Reasons: CKD STG 3A/ 3 weeks fu/ LVM Regional Guide Required: Yes Regional Guide Name: Huang [id number] Accompanied by: Self / Same As Patient Allergies Seasonal Allergies Allergy (Mild, Verified 02/18/24 12:23) Unknown HPI Comments Details: 63-year-old woman with a history of obesity and hypertension has been referred for evaluation of hypertension and CKD. She was on meloxicam in the past which has been discontinued. She is being managed by pain management. As for the blood pressure she is on losartan 100 mg and chlorthalidone 50 mg a day. She is compliant with her medications. Today she is complaining of low back pain. No urinary symptoms No polyuria polydipsia. No shortness of breath. [facility] Medical History (Updated 01/29/24 @ 15:04 by Kalen Negrete MD) Asthma-COPD overlap syndrome Lumbar back pain with radiculopathy affecting right lower extremity Sacroiliac joint dysfunction of right side Sacroiliitis Disc degeneration, lumbar HPV test positive Chronic pain syndrome Acute blood loss anemia Hypertension Osteoarthritis of right knee MENDENHALL (dyspnea on exertion) Presence of dental bridge Sleep apnea Diabetes Overflow stress urinary incontinence in female Urge incontinence Primary osteoarthritis of hands, bilateral Loose right total knee arthroplasty Hx of carpal tunnel syndrome Pulmonary nodules GERD (gastroesophageal reflux disease) Surgical History Hx of tubal ligation H/O knee surgery History of orthopedic surgery History of arthroplasty of right knee History of pubovaginal sling Hx of colonoscopy History of carpal tunnel release of both wrists History of esophagogastroduodenoscopy (EGD) Previous back surgery History of endometrial ablation Hx of section Family History Mother Diabetes Arthritis Brother Cancer Paternal Aunt Breast cancer Social History Household Members: None Housing: Apartment Are you a primary home visit field care manager to a significant other at home: No Do you presently have visiting nurse or other 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 services: 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) Alcohol intake: former Year quit: 2017 Comment: pt sleeping Patient Tobacco Use Status: Current everyday Tobacco user Tobacco use type: Cigarette Cigarettes Per Day: 5 Years Smoked: 2014 Substance Use Type: Crack/Cocaine and Marijuana service: No Current occupational status: disabled Female Reproductive History Menstrual Age of Menarche: 11 Physical Exam Vital Signs: Last Vital Signs Pulse 97 02/18/24 12:21 BP 120/60 02/18/24 12:21 Pulse Ox 97 02/18/24 12:21 Oxygen Delivery Method Room Air 02/18/24 12:21 BMI result Body Mass Index 33.8 Const General: comfortable Nutritional Appearance: well nourished Orientation/consciousness: patient oriented x3 HEENT Head: No normal to inspection Mouth: moist mucous membranes Neck Neck: Yes supple and Yes no JVD Resp Auscultation: clear to auscultation bilaterally, no rales and rub present Cardio Jugular venous distension: no JVD Palpation: no palpable S3 and no palpable S4 Heart sounds: no rubs GI Palpation (GI): Soft to palpation and nontender Percussion: No Fluid wave present General: Yes no CVA tenderness Back/Spine/Pelvis Back: no CVA tenderness Skin General skin exam: no rashes or lesions noted Neuro General: patient oriented x3 Extrem General: Yes no pedal edema and No clubbing Results Reviewed Nephrology Results: Hgb 10.7 g/dl (12.0-16.0) L 02/11/24 WBC 8.6 X10*3/uL (4.8-10.8) 02/11/24 Plt Count 299 X10*3/uL (160-400) 02/11/24 Sodium 144 mmol/L (135-145) 02/11/24 Potassium 4.1 mmol/L (3.3-5.1) 02/11/24 Chloride 103 mmol/L (96-108) 02/11/24 Carbon Dioxide 32 mmol/L (22-29) H 02/11/24 BUN 7 mg/dL (9-16) L 02/11/24 Creatinine 0.90 mg/dL (0.5-1.4) 02/11/24 Calcium 9.6 mg/dL (8.4-10.2) 02/11/24 Urine Protein Negative mg/dL (Neg-Trace) 02/18/24 Urine Creatinine 35.20 mg/dL 02/18/24 Assessment & Plan Assessment & Plan (1) CKD (chronic kidney disease): Code(s): N18.9 - Chronic kidney disease, unspecified Category: Medical (2) Proteinuria: Code(s): R80.9 - Proteinuria, unspecified Category: Medical Plan 63-year-old man with chronic kidney disease and proteinuria in a setting of hypertension obesity and diabetes mellitus. Recent urine microarray creatinine ratio was 333. She probably has underlying diabetic hypertensive kidney disease. She might have a component of acute kidney injury from hypoperfusion. She is on adequate dose of losartan with a high dose of chlorthalidone and blood pressure was rather low which could be contributing to hypoperfusion. Keep Chlorthalidone Needs to stay on low salt diet Renal function is better She should avoid NSAIDs and other nephrotoxic Maintain adequate hydration. Orders: Orders Total Protein Urine Random Today R80.9 - Proteinuria, unspecified UA and rflx microscopic Today R80.9 - Proteinuria, unspecified Creatinine Urine Today N05.9 - Unspecified nephritic syndrome with unspecified morphologic changes, R80.9 - Proteinuria, unspecified Coding Level of Care Code Est Pt Level 4 (44627) Diagnoses CKD (chronic kidney disease) N18.9 Proteinuria R80.9
[2024-02-18 12:21] VITALS: BP 120/60; PULSE 97; O2SAT 97; BMI 33.8
== END 2024-02-18 12:58 | disposition home or self-care (01) ==
LOC: HO.HKA 12:20
PROVIDERS: PCP Internal Medicine; Visit Provider Internal Medicine Hypertension Specialist
DX: N18.9 Chronic kidney disease, unspecified (principal); R80.9 Proteinuria, unspecified
CPT/HCPCS: 99214

== ENCOUNTER 2024-03-10 12:56 | Outpatient (REF) | payer OTHER, SELFPAY ==
--- NOTE | ~2024-03-10 | CT_ITS ---
EXAMINATION: CT LUNG SCREENING CLINICAL INFORMATION: Personal history of nicotine dependence. The patient is a current smoker with a 50 pack-year history of smoking. COMPARISON: CT chest 10/31/2022 and 10/04/2020. TECHNIQUE: Multidetector volumetric CT imaging of the chest is performed on a Siemens SOMATOM Definition scanner without contrast using low dose technique. Additional 2D coronal and sagittal reformatted images and axial 3D maximum intensity projection (MIP) images are generated on the CT workstation. This CT examination was performed using dose optimization techniques as appropriate, variously including the following: *Automated exposure control *Adjustment of mA and/or kV according to patient size (this includes techniques or standardized protocols for targeted exams where dose is matched to indication/reason for exam; i.e. extremities or head) *Use of iterative reconstruction technique TOTAL EXAM DLP: 49 mGy-cm. CTDIvol: 1.66 mGy. FINDINGS: PULMONARY NODULES: There are unchanged pulmonary nodules includin mm left lower lobe (5:179 compare prior 5:219). 8 and 6 mm adjacent nodules left lower lobe (5:192 compare prior 5:235). 7 mm left lower lobe nodule and costophrenic sulcus (5:307 compare prior 5:370). 4 mm nodule left lower lobe (5:297 compare prior 5:360). There is no new, increasing-sized or concerning nodule. LUNGS: There is moderate emphysema and moderate diffuse bronchial thickening. No effusion or pneumothorax. Central airways patent. MEDIASTINUM: No mediastinal, hilar or axillary adenopathy or free fluid collection. CORONARY ARTERY CALCIFICATION: Mild. THYROID GLAND: Unremarkable to the extent seen. CARDIOVASCULAR STRUCTURES: Aortic and heart size normal. No pericardial effusion. CHEST WALL/AXILLA: Unremarkable. UPPER ABDOMEN: Included portions of the solid organs in the upper abdomen unremarkable on noncontrast imaging. Calcified liver granulomas are present. OSSEOUS STRUCTURES: No suspicious focal findings. CT/CT lung screening IMPRESSION: 1. Stable pulmonary nodules. 2. Moderate emphysema and bronchial thickening. 3. Incidental findings (s category): No incidental findings. ASSESSMENT: 1. Lung-RADS Category 2: Benign appearance or behavior of nodules. N/A RECOMMENDATION: Continued routine annual low-dose CT lung screening in 1 year is recommended. An order for CT CHEST LOW DOSE CANCER SCREENING ([id number]) can be placed.
== END 2024-03-10 12:57 | disposition home or self-care (01) ==
LOC: HO.CT 12:56
PROVIDERS: PCP Internal Medicine; Visit Provider Internal Medicine Pulmonary Disease
DX: Z12.2 Encounter for screening for malignant neoplasm of respiratory organs (principal); Z87.891 Personal history of nicotine dependence
CPT/HCPCS: 71271

== ENCOUNTER 2024-03-11 13:01 | Outpatient (AMB) | payer OTHER, SELFPAY ==
[2024-03-11 13:05] VITALS: BP 102/50; PULSE 63; O2SAT 96; BMI 31.8
--- NOTE | 2024-03-11 13:05 | HO.NEPHOV_ITS ---
Vital Signs 03/11/24 13:05 Height 5 ft 2 in Weight 174 lb BMI 31.8 BP 102/50 L Blood Pressure Location Lt brachial Position Sitting Pulse 63 Pulse Source Pulse Oximeter Pulse Oximetry (%) 96 Oxygen Delivery Method Room Air Intake Visit Reasons: CKD / 3 weeks fu/ LVM Brush Or Broom Cutter Required: Yes Brush Or Broom Cutter Name: Austin [id number] Accompanied by: Self / Same As Patient Allergies Seasonal Allergies Allergy (Mild, Verified 03/11/24 13:09) Unknown HPI Comments Details: 63-year-old woman with a history of obesity and hypertension has been referred for evaluation of hypertension and CKD. She was on meloxicam in the past which has been discontinued. She is being managed by pain management. As for the blood pressure she is on losartan 100 mg and chlorthalidone 50 mg a day. She is compliant with her medications. Today she is complaining of low back pain. No urinary symptoms No polyuria polydipsia. No shortness of breath. 03/11/24 Doing well today Interpretor service was used [facility] Medical History (Updated 01/29/24 @ 15:04 by Kalen Negrete MD) Asthma-COPD overlap syndrome Lumbar back pain with radiculopathy affecting right lower extremity Sacroiliac joint dysfunction of right side Sacroiliitis Disc degeneration, lumbar HPV test positive Chronic pain syndrome Acute blood loss anemia Hypertension Osteoarthritis of right knee MENDENHALL (dyspnea on exertion) Presence of dental bridge Sleep apnea Diabetes Overflow stress urinary incontinence in female Urge incontinence Primary osteoarthritis of hands, bilateral Loose right total knee arthroplasty Hx of carpal tunnel syndrome Pulmonary nodules GERD (gastroesophageal reflux disease) Surgical History Hx of tubal ligation H/O knee surgery History of orthopedic surgery History of arthroplasty of right knee History of pubovaginal sling Hx of colonoscopy History of carpal tunnel release of both wrists History of esophagogastroduodenoscopy (EGD) Previous back surgery History of endometrial ablation Hx of section Family History Mother Diabetes Arthritis Brother Cancer Paternal Aunt Breast cancer Social History Household Members: None Housing: Apartment Are you a primary child day care provider to a significant other at home: No Do you presently have visiting nurse or other home services: Yes ([employer]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) Alcohol intake: former Year quit: 2018 Comment: pt sleeping Patient Tobacco Use Status: Current everyday Tobacco user Tobacco use type: Cigarette Cigarettes Per Day: 5 Years Smoked: 2014 Substance Use Type: Crack/Cocaine and Marijuana service: No Current occupational status: disabled Female Reproductive History Menstrual Age of Menarche: 11 Physical Exam Vital Signs: Last Vital Signs Pulse 63 03/11/24 13:05 BP 102/50 L 03/11/24 13:05 Pulse Ox 96 03/11/24 13:05 Oxygen Delivery Method Room Air 03/11/24 13:05 BMI result Body Mass Index 31.8 Const General: comfortable Nutritional Appearance: well nourished Orientation/consciousness: patient oriented x3 HEENT Head: No normal to inspection Mouth: moist mucous membranes Neck Neck: Yes supple and Yes no JVD Resp Auscultation: clear to auscultation bilaterally, no rales and rub present Cardio Jugular venous distension: no JVD Palpation: no palpable S3 and no palpable S4 Heart sounds: no rubs GI Palpation (GI): Soft to palpation and nontender Percussion: No Fluid wave present General: Yes no CVA tenderness Back/Spine/Pelvis Back: no CVA tenderness Skin General skin exam: no rashes or lesions noted Neuro General: patient oriented x3 Extrem General: Yes no pedal edema and No clubbing Results Reviewed Results Reviewed: No proteinuria Nephrology Results: Hgb 10.7 g/dl (12.0-16.0) L 02/11/24 WBC 8.6 X10*3/uL (4.8-10.8) 02/11/24 Plt Count 299 X10*3/uL (160-400) 02/11/24 Sodium 144 mmol/L (135-145) 02/11/24 Potassium 4.1 mmol/L (3.3-5.1) 02/11/24 Chloride 103 mmol/L (96-108) 02/11/24 Carbon Dioxide 32 mmol/L (22-29) H 02/11/24 BUN 7 mg/dL (9-16) L 02/11/24 Creatinine 0.90 mg/dL (0.5-1.4) 05/06/24 Calcium 9.6 mg/dL (8.4-10.2) 02/11/24 Urine Protein Negative mg/dL (Neg-Trace) 02/18/24 Urine Creatinine 35.20 mg/dL 02/18/24 Assessment & Plan Assessment & Plan (1) CKD (chronic kidney disease): Code(s): N18.9 - Chronic kidney disease, unspecified Category: Medical (2) Proteinuria: Code(s): R80.9 - Proteinuria, unspecified Category: Medical Plan 63-year-old man with chronic kidney disease and proteinuria in a setting of hypertension obesity and diabetes mellitus. Recent urine microarray creatinine ratio was 333. She probably has underlying diabetic hypertensive kidney disease. She might have a component of acute kidney injury from hypoperfusion. She is on adequate dose of losartan with a high dose of chlorthalidone and blood pressure was rather low which could be contributing to hypoperfusion. Keep Chlorthalidone due to edema Needs to stay on low salt diet Renal function is better She should avoid NSAIDs and other nephrotoxic Maintain adequate hydration. Since BP is low, I will DECREASE LOSARTAN by 50% t0 50 mg daily Orders: Orders Total Protein Urine Random 4 Months R80.9 - Proteinuria, unspecified Creatinine Urine 4 Months R80.9 - Proteinuria, unspecified Basic Metabolic Panel 4 Months R80.9 - Proteinuria, unspecified Coding Level of Care Code Est Pt Level 4 (50513) Diagnoses CKD (chronic kidney disease) N18.9 Proteinuria R80.9
== END 2024-03-11 13:22 | disposition home or self-care (01) ==
PROVIDERS: PCP Internal Medicine; Visit Provider Internal Medicine Hypertension Specialist
DX: N18.9 Chronic kidney disease, unspecified (principal); R80.9 Proteinuria, unspecified
CPT/HCPCS: 99214

== ENCOUNTER → 2024-03-11 13:01 | Outpatient (BNVA) | payer OTHER, SELFPAY | PROVIDERS: PCP Internal Medicine; Visit Provider Internal Medicine Hypertension Specialist | DX: I12.9 Hypertensive chronic kidney disease with stage 1 through stage 4 chronic kidney disease, or unspecified chronic kidney disease (principal); E11.22 Type 2 diabetes mellitus with diabetic chronic kidney disease; N18.9 Chronic kidney disease, unspecified; R80.9 Proteinuria, unspecified | CPT/HCPCS: 99212 ==

== ENCOUNTER 2024-03-13 11:26 | Outpatient (AMB) | payer OTHER, SELFPAY ==
[2024-03-13 12:19] VITALS: BP 148/72; PULSE 86; RESP 16; O2SAT 97; BMI 32.1
--- NOTE | 2024-03-13 12:19 | A.OFFVIS_ITS ---
Vital Signs 03/13/24 12:19 Height 5 ft 2 in Weight 175 lb 4 oz BMI 32.1 BP 148/72 H Blood Pressure Location Lt brachial Position Sitting Respiration 16 Pulse 86 Pulse Source Pulse Oximeter Pulse Oximetry (%) 97 Oxygen Delivery Method Room Air Intake Visit Reasons: ITDD PUMP REFILL Intake Note: Patient comes in for intrathecal medication refill. Reports pain 9/10. Allergies Seasonal Allergies Allergy (Mild, Verified 03/13/24 12:20) Unknown HPI Comments Details: Norma is a very pleasant 62 year old female who is today in my office for a refill of the pain pump. Today she changed in nature of her complaints. She reports that when she is at rest the pain pump works well and helps her to alleviate almost all of her pain. She reports severe pain in the lower back when she starts to be active and walking. I suppose some of her pain is related to arthritis of the lower back. My suspicion is supported the fact that when she is in warmer climate in [place] she feels almost no pain with walking. I offered her to perform bilateral L5-S1 and L4-L5 intra-articular facet joint steroid injections. For this procedure I need to perform a dye study on her pump before placing my needles into the facet joints of this patient. I will p ut to rest at least temporarily the Modic type 1 changes and her insurance company reluctance to cover the procedure intercept procedure. It is still under appeal with her insurance company. The insurance company ignored the fact that the patient suffers from severe pain and continues to postpone the decision. She went for the MRI of the lumbar spine dictation of which reported as below. On the MRI they were significant Modic type 1 changes in the projection of the L3, L4, L5, and S1 vertebra. She has spinal cord stimulator and pain pump implanted. It could be difficult to perform the procedure intercept however I told her that I am willing to try to do the procedure, I do not know the outcome but I will do my best in the attempt to alleviate her pain. I also increase today continuous opioid plus bupivacaine intrathecal medication, patient reports some pain relief for about 1 hour after administering PTM bolus however when she is between the boluses she reports her pain is unbearable. See description of the refill as below. [facility] Medical History (Updated 01/29/24 @ 15:04 by Kalen Negrete MD) Asthma-COPD overlap syndrome Lumbar back pain with radiculopathy affecting right lower extremity Sacroiliac joint dysfunction of right side Sacroiliitis Disc degeneration, lumbar HPV test positive Chronic pain syndrome Acute blood loss anemia Hypertension Osteoarthritis of right knee MENDENHALL (dyspnea on exertion) Presence of dental bridge Sleep apnea Diabetes Overflow stress urinary incontinence in female Urge incontinence Primary osteoarthritis of hands, bilateral Loose right total knee arthroplasty Hx of carpal tunnel syndrome Pulmonary nodules GERD (gastroesophageal reflux disease) Surgical History Hx of tubal ligation H/O knee surgery History of orthopedic surgery History of arthroplasty of right knee History of pubovaginal sling Hx of colonoscopy History of carpal tunnel release of both wrists History of esophagogastroduodenoscopy (EGD) Previous back surgery History of endometrial ablation Hx of section Family History Mother Diabetes Arthritis Brother Cancer Paternal Aunt Breast cancer Social History Household Members: None Housing: Apartment Are you a primary pharmacy care coordinator to a significant other at home: No Do you presently have visiting nurse or other home services: Yes ([employer]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) Alcohol intake: former Year quit: 2018 Comment: pt sleeping Patient Tobacco Use Status: Current everyday Tobacco user Tobacco use type: Cigarette Cigarettes Per Day: 5 Years Smoked: 2014 Substance Use Type: Crack/Cocaine and Marijuana service: No Current occupational status: disabled Female Reproductive History Menstrual Age of Menarche: 11 Review of Systems Const All systems reviewed & are unremarkable except as noted in HPI and below Physical Exam Vital Signs: Last Vital Signs Pulse 86 03/13/24 12:19 Resp 16 03/13/24 12:19 BP 148/72 H 03/13/24 12:19 Pulse Ox 97 03/13/24 12:19 Oxygen Delivery Method Room Air 03/13/24 12:19 BMI result Body Mass Index 32.1 Const General: cooperative and well developed Orientation/consciousness: patient oriented x3 Limitations: language barrier HEENT Head: Yes atraumatic Mouth: no other ( thrush) Throat: No postnasal drainage Eyes General: appearance normal, both eyes and all related structures Sclerae: sclerae normal EOM: EOMs intact bilaterally Neck Neck: Yes supple Lymphatic: no lymphadenopathy noted Chest Chest palpation & inspection: normal inspection of the chest Resp Effort & Inspection: normal respiratory effort, able to speak in complete sentences, normal respiratory pattern, no audible wheezes, no cough and de creased respiratory effort Cardio Jugular venous distension: no JVD GI Inspection: Yes normal to inspection Neuro General: patient oriented x3 Extrem General: No clubbing, No cyanosis and Yes edema (symmetric b/l LE pitting edema.) Results Reviewed Results Reviewed: MRI of the lumbar spine was obtained using routine sequences without contrast. FINDINGS: CORONAL ALIGNMENT: Mild lower thoracic dextrocurvature partially imaged, similar to previous exam with trace mid lumbar levocurvature, unchanged. SAGITTAL ALIGNMENT: 3.5 mm of grade 1 spondylolisthesis at L4-L5 has progressed from the previous study. Trace anterolisthesis at L3-L4 and L2-L3 are stable. Otherwise, normal lumbar lordotic curvature. LUMBOSACRAL JUNCTION: Transitional lumbosacral anatomy with lowest lumbar-like segment labeled as L5, which appears partially sacralized on the left. VERTEBRAL BODIES: Stable vertebral body heights. No interval compression fractures. DISC SPACES AND ENDPLATES: Hnhbfkex-yy-brgjlj intervertebral disc space height loss at L4-L5 has progressed from the previous exam, with progression of a central Schmorl's nodes, intradiscal degenerative changes and spondylosis. Zxsh-ye-zrfkuwkm disc volume loss at L3-L4 slightly progressed with prominent anterolateral spondylosis deformans, similar to previous exam, and disc desiccation. Stable disc space heights at L1-L2 and L3-L4 with stable spondylosis and disc desiccation. Anterior marginal spondylosis at the T12-L1 is stable with disc desiccation. Stable Schmorl's nodes along the superior endplate of L1 and along the endplates centrally at T11-T12. SPINAL CANAL: Moderately prominent epidural fat throughout the lumbar canal appears somewhat more prominent than on the previous exam. BONE MARROW: There are type I degenerative marrow signal changes seen along the endplates at L3-L4 and L4-L5 progressed from the previous study. Minimal type I marrow signal changes along the endplates at L1-L2 and L2-L3 are also slightly more prominent. Note that there is susceptibility artifact related to a spinal stimulator device partially obscuring portions of the pelvis on the right. No focally suspicious marrow replacing process or bone marrow edema. CONUS MEDULLARIS: Terminates at L1. Morphology and signal is normal. INTRADURAL NERVE ROOTS: Within normal limits. L5-S1: Normal annular contour. Mjid-zi-rsvwvrcz facet joint arthrosis, left more than right similar to previous exam. On current study, there is a 5 mm ovoid subligamentous synovial cyst along the medial aspect of the left facet joint, which is a new finding without neural impingement. No significant canal or neural foraminal stenosis. L4-L5: Unroofing of the posterior disc margin progressed from previous exam with superimposed concentric disc bulging progressed from previous study. Flattening the ventral dural sac is progressed. Ligamentum flavum thickening and severe bilateral facet joint arthrosis is slightly progressed. Prominent dorsal fat pad also appears slightly more prominent, now with nsnjzont-cx-wszpnp central spinal canal stenosis with crowding of the intradural nerve roots progressed from previous study. Mild bilateral lateral recess stenosis progressed from previous exam without definite neural impingement. Uayw-km-kdecvciv bilateral neural foraminal stenosis slightly progressed, with disc bulging abutting the exiting L4 nerve roots bilaterally. L3-L4: Diffuse disc bulging is slightly progressed. Flattening of the ventral dural sac slightly progressed. Prominent dorsal fat pad progressed from previous exam with dcuyully-ra-lhissq bilateral facet hypertrophic degenerative changes and interspinous ligament degeneration, similar to prior exam. There is moderate central spinal canal stenosis progressed from previous exam and there is moderate left and iwwr-im-rrqzcwgi right-sided neural foraminal stenosis minimally progressed on the left and stable on the right. L2-L3: There is disc bulging with a superimposed left-sided foraminal/extraforaminal disc protrusion, stable in appearance. Mild flattening of the dural sac is stable with stable prominent dorsal fat pad and moderate bilateral facet arthropathy. Mild canal stenosis is stable and there is a stable ojeo-lo-rjnfuqkf neural foraminal narrowing, right more than left. L1-L2: Concentric disc bulging with flattening of the dural sac is stable. Mild facet arthropathy is stable. There is susceptibility artifact in the dorsal epidural space similar to previous exam related to spinal stimulator leads entering at this level. No significant canal stenosis. Mild foraminal narrowing noted bilaterally without neural impingement, unchanged. T12-L1: Susceptibility artifact noted distorting the posterior dural sac related to spinal stimulator leads but no significant canal or neural foraminal stenosis on the sagittal T1-weighted images. Minor facet arthropathy noted bilaterally at this level. Spinal stimulator leads extending cephalad along the dorsal epidural space up to the level of the highest level imaged. PARAVERTEBRAL AND INCLUDED EXTRASPINAL SOFT TISSUES: There is posterior paraspinal and psoas muscle sarcopenia. Otherwise unremarkable. MR/MR lumbar spine wo con IMPRESSION: 1. Progression of grade 1 degenerative spondylolisthesis at L4-L5 with progression of disc bulging at this level and progression of posterior element hypertrophic degenerative changes, now with moderate to severe spinal canal stenosis with crowding of the intradural nerve roots progressed from previous exam and stable ydtj-nt-hqmuvjfu bilateral neural foraminal stenosis with disc bulging abutting the exiting L4 nerve roots bilaterally. 2. Stable disc bulging and left lateral foraminal/extraforaminal disc protrusion at L2-L3 with stable mild spinal canal stenosis and stable wfft-px-ljnknfrq neural foraminal narrowing, right more than left. Progression of disc bulging at L3-L4 and progression of the dorsal fat pad with moderate central spinal canal stenosis progressed from previous exam at this level. 3. Disc bulging and facet arthropathy L1-L2 is stable in appearance. 4. Multilevel bilateral facet joint arthrosis as described above, with progression of epidural fat at L3-L4 and L4-L5. Multilevel bilateral neural foraminal stenosis as detailed by level above. 5. Spinal stimulator leads as described above. 6. Paraspinal and psoas muscle sarcopenia. Assessment & Plan Assessment & Plan (1) Vertebrogenic low back pain: Code(s): M54.51 - Vertebrogenic low back pain Category: Medical Plan: (2) Lumbar back pain with radiculopathy affecting right lower extremity: Code(s): M54.16 - Radiculopathy, lumbar region Category: Medical (3) Sacroiliac joint dysfunction of right side: Code(s): M53.3 - Sacrococcygeal disorders, not elsewhere classified Category: Medical (4) Sacroiliitis: Code(s): M46.1 - Sacroiliitis, not elsewhere classified Category: Medical (5) Disc degeneration, lumbar: Code(s): M51.36 - Other intervertebral disc degeneration, lumbar region Category: Medical (6) Spondylosis of lumbar spine: Code(s): M47.816 - Spondylosis without myelopathy or radiculopathy, lumbar region Category: Medical (7) Chronic pain syndrome: Code(s): G89.4 - Chronic pain syndrome Category: Medical Plan: Intrathecal pump refill. THE PATIENT CAME TODAY IN THE office FOR THE CHANGE OF THE MEDICATION IN her PAIN PUMP. The name and date of were verified and informed consent was obtained for the procedure. ?The pump was interrogated and the residual amount of fluid was found to be 5.0 mL. SHE WAS POSITIONED prone on the bed AND THE AREA OF THE INTRATHECAL PUMP WAS PREPPED WITH CHLORAPREP. The fenestrated drape was sterilely applied over the area of the pump. Sterile gloves were worn and of the aspiration system was assembled containing 2 in 22 gauge noncoring needle, the needle was connected to extension tubing which was connected to the 20 cc sterile syringe. The pain pump was palpated under the skin in the patient's right buttock area. The needle was inserted through the skin and the central plug of the pain pump and fluid was aspirated. The clear fluid was going into the syringe the total amount of the fluid was 6.0 mL .. After that a new batch? of medication was obtained which was containing hydromorphone in concentration 1000 micro g/ml and bupivacaine 30 mg per ml. The admixture was made in 20 cc syringe prepared by [facility] compounding pharmacy. The syringe was connected to the bacterial filter, and then connected to the extension tubing. After that the medication in the syringe was slowly instilled into the pump with aspirations at 15 and 5 cc fajardo.? The pump was reprogrammed with the doses of 100 mg per day with corresponding dose of bupivacaine of the continuous medication to stay the same as the last time. The corresponding dose of the bupivacaine is 1.2 mg per day. she will be able to receive every 3 hours as previously the dose of hydromorphone which was increased today to 100 micro g of hydromorphone and 2.999 mg of bupivacaine on demand 5 times in 24 hour period. (6) Chronic pain syndrome: (8) Generalized osteoarthritis: Code(s): M15.9 - Polyosteoarthritis, unspecified Category: Medical Plan: MRI is done and Modic type changes discovered . I offered this patient intercept procedure. She agreed to go for the procedure. Her insurance company received the appeal. We still do not receive anything from the insurance company it has been 4 weeks already. Meanwhile the patient is suffering from pain need with sleep. To temporize her condition I would like to perform intra- articular facet joint injection L4-5 and L5-S1. I will schedule it with dye study to avoid damage of the intrathecal pain pump catheter during the procedure. Pump refill is as above. She will be seen for the next pump refill on 04/13/2024. (9) Edema of both lower extremities: Code(s): R60.0 - Localized edema Category: Medical Plan: An Plan Patient Instructions: I here by testify that I spent 33 minutes in conversation with this patient as well as planning her care and organizing this note. Coding Level of Care Code Est Pt Level 4 (79197) Procedure Only Diagnoses Vertebrogenic low back pain M54.51 Lumbar back pain with radiculopathy affecting right lower extremity M54.16 Sacroiliac joint dysfunction of right side M53.3 Sacroiliitis M46.1 Disc degeneration, lumbar M51.36 Spondylosis of lumbar spine M47.816 Chronic pain syndrome G89.4 Generalized osteoarthritis M15.9 Edema of both lower extremities R60.0
== END 2024-03-13 12:09 | disposition home or self-care (01) ==
PROVIDERS: PCP Internal Medicine; Visit Provider Anesthesiology
DX: M54.51 Vertebrogenic low back pain (principal); M54.16 Radiculopathy, lumbar region; M53.3 Sacrococcygeal disorders, not elsewhere classified; M46.1 Sacroiliitis, not elsewhere classified; Z45.1 Encounter for adjustment and management of infusion pump; M51.36 Other intervertebral disc degeneration, lumbar region; M47.816 Spondylosis without myelopathy or radiculopathy, lumbar region; G89.4 Chronic pain syndrome; M15.9 Polyosteoarthritis, unspecified; R60.0 Localized edema
CPT/HCPCS: 62370; 99214

== ENCOUNTER → 2024-03-13 11:26 | Outpatient (BNVA) | payer OTHER, SELFPAY | PROVIDERS: PCP Internal Medicine; Visit Provider Anesthesiology | DX: Z45.89 Encounter for adjustment and management of other implanted devices (principal); M54.51 Vertebrogenic low back pain; M54.16 Radiculopathy, lumbar region; M53.3 Sacrococcygeal disorders, not elsewhere classified; M46.1 Sacroiliitis, not elsewhere classified; M51.36 Other intervertebral disc degeneration, lumbar region; M47.816 Spondylosis without myelopathy or radiculopathy, lumbar region; M15.9 Polyosteoarthritis, unspecified; R60.0 Localized edema; G89.4 Chronic pain syndrome | CPT/HCPCS: 62370; 99212 ==

== ENCOUNTER 2024-03-18 09:36 | Outpatient (REF) | payer OTHER, SELFPAY | END 2024-03-18 09:37 | disposition home or self-care (01) | LOC: HO.HOSX 09:36 | DX: Z13.89 Encounter for screening for other disorder (principal) ==

== ENCOUNTER 2024-04-14 11:20 | Outpatient (AMB) | payer OTHER, SELFPAY ==
[2024-04-14 12:11] VITALS: BP 130/58; PULSE 74; RESP 16; O2SAT 98; BMI 32.3
--- NOTE | 2024-04-14 12:11 | A.OFFVIS_ITS ---
Vital Signs 04/14/24 12:11 Height 5 ft 2 in Weight 176 lb 6 oz BMI 32.3 BP 130/58 L Blood Pressure Location Lt brachial Position Sitting Respiration 16 Pulse 74 Pulse Source Pulse Oximeter Pulse Oximetry (%) 98 Oxygen Delivery Method Room Air Intake Visit Reasons: ITDD REFILL Intake Note: Patient comes in for intrathecal medication refill. Reports pain 9/10. Allergies Seasonal Allergies Allergy (Mild, Verified 04/14/24 12:13) Unknown HPI Comments Details: Norma is a very pleasant 62 year old female who is today in my office for a refill of the pain pump. She reports severe pain in the lower back when she starts to be active and walking. She reports pain with prolonged sitting, she reports pain with flexing forward. The intra-articular L4-5 and L5-S1 bilateral steroid injections were not effective to control her pain. She went for the MRI of the lumbar spine dictation of which reported as below. On the MRI they were significant Modic type 1 changes in the projection of the L3, L4, L5, and S1 vertebra. She has spinal cord stimulator and pain pump implanted. It could be difficult to perform the procedure intercept however I told her that I am willing to try to do the procedure, I do not know the outcome but I will do my best in the attempt to alleviate her pain. The intrathecal pain pump was refilled today the patient requested me to increase the doses of the medication. I will increase the doses of the opioid medications for this patient as it is described in the pump refill. I would need to refill her pump again in couple of weeks, I prefer to refill her pump before I will proceed with intercept procedure. The new medication concentrations will be hydromorphone 2 milligrams/mL and bupivacaine 40 milligrams/mL. Bupivacaine is maximal concentration therefore we can not continue to increase it more than 40 milligrams/mL. [facility] Medical History (Updated 01/29/24 @ 15:04 by Kalen Negrete MD) Asthma-COPD overlap syndrome Lumbar back pain with radiculopathy affecting right lower extremity Sacroiliac joint dysfunction of right side Sacroiliitis Disc degeneration, lumbar HPV test positive Chronic pain syndrome Acute blood loss anemia Hypertension Osteoarthritis of right knee MENDENHALL (dyspnea on exertion) Presence of dental bridge Sleep apnea Diabetes Overflow stress urinary incontinence in female Urge incontinence Primary osteoarthritis of hands, bilateral Loose right total knee arthroplasty Hx of carpal tunnel syndrome Pulmonary nodules GERD (gastroesophageal reflux disease) Surgical History Hx of tubal ligation H/O knee surgery History of orthopedic surgery History of arthroplasty of right knee History of pubovaginal sling Hx of colonoscopy History of carpal tunnel release of both wrists History of esophagogastroduodenoscopy (EGD) Previous back surgery History of endometrial ablation Hx of section Family History Mother Diabetes Arthritis Brother Cancer Paternal Aunt Breast cancer Social History Household Members: None Housing: Apartment Are you a primary progressive care manager to a significant other at home: No Do you presently have visiting nurse or other home services: Yes ([employer]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) Alcohol intake: former Year quit: 2017 Comment: pt sleeping Patient Tobacco Use Status: Current everyday Tobacco user Tobacco use type: Cigarette Cigarettes Per Day: 5 Years Smoked: 2014 Substance Use Type: Crack/Cocaine and Marijuana service: No Current occupational status: disabled Female Reproductive History Menstrual Age of Menarche: 11 Review of Systems Const All systems reviewed & are unremarkable except as noted in HPI and below Physical Exam Vital Signs: Last Vital Signs Pulse 74 04/14/24 12:11 Resp 16 04/14/24 12:11 BP 130/58 L 04/14/24 12:11 Pulse Ox 98 04/14/24 12:11 Oxygen Delivery Method Room Air 04/14/24 12:11 BMI result Body Mass Index 32.3 Const General: cooperative and well developed Orientation/consciousness: patient oriented x3 Limitations: language barrier HEENT Head: Yes atraumatic Mouth: no other ( thrush) Throat: No postnasal drainage Eyes General: appearance normal, both eyes and all related structures Sclerae: sclerae normal EOM: EOMs intact bilaterally Neck Neck: Yes supple Lymphatic: no lymphadenopathy noted Chest Chest palpation & inspection: normal inspection of the chest Resp Effort & Inspection: normal respiratory effort, able to speak in complete sentences, normal respiratory pattern, no audible wheezes, no cough and decreased respiratory effort Cardio Jugular venous distension: no JVD GI Inspection: Yes normal to inspection Neuro General: patient oriented x3 Extrem General: No clubbing, No cyanosis and Yes edema (symmetric b/l LE pitting edema.) Results Reviewed Results Reviewed: MRI of the lumbar spine was obtained using routine sequences without contrast. FINDINGS: CORONAL ALIGNMENT: Mild lower thoracic dextrocurvature partially imaged, similar to previous exam with trace mid lumbar levocurvature, unchanged. SAGITTAL ALIGNMENT: 3.5 mm of grade 1 spondylolisthesis at L4-L5 has progressed from the previous study. Trace anterolisthesis at L3-L4 and L2-L3 are stable. Otherwise, normal lumbar lordotic curvature. LUMBOSACRAL JUNCTION: Transitional lumbosacral anatomy with lowest lumbar-like segment labeled as L5, which appears partially sacralized on the left. VERTEBRAL BODIES: Stable vertebral body heights. No interval compression fractures. DISC SPACES AND ENDPLATES: Ubztdiut-mn-ahgdzv intervertebral disc space height loss at L4-L5 has progressed from the previous exam, with progression of a central Schmorl's nodes, intradiscal degenerative changes and spondylosis. Celk-zk-bmvoqwfq disc volume loss at L3-L4 slightly progressed with prominent anterolateral spondylosis deformans, similar to previous exam, and disc desiccation. Stable disc space heights at L1-L2 and L3-L4 with stable spondylosis and disc desiccation. Anterior marginal spondylosis at the T12-L1 is stable with disc desiccation. Stable Schmorl's nodes along the superior endplate of L1 and along the endplates centrally at T11-T12. SPINAL CANAL: Moderately prominent epidural fat throughout the lumbar canal appears somewhat more prominent than on the previous exam. BONE MARROW: There are type I degenerative marrow signal changes seen along the endplates at L3-L4 and L4-L5 progressed from the previous study. Minimal type I marrow signal changes along the endplates at L1-L2 and L2-L3 are also slightly more prominent. Note that there is susceptibility artifact related to a spinal stimulator device partially obscuring portions of the pelvis on the right. No focally suspicious marrow replacing process or bone marrow edema. CONUS MEDULLARIS: Terminates at L1. Morphology and signal is normal. INTRADURAL NERVE ROOTS: Within normal limits. L5-S1: Normal annular contour. Jrcx-ws-tqzjqegj facet joint arthrosis, left more than right similar to previous exam. On current study, there is a 5 mm ovoid subligamentous synovial cyst along the medial aspect of the left facet joint, which is a new finding without neural impingement. No significant canal or neural foraminal stenosis. L4-L5: Unroofing of the posterior disc margin progressed from previous exam with superimposed concentric disc bulging progressed from previous study. Flattening the ventral dural sac is progressed. Ligamentum flavum thickening and severe bilateral facet joint arthrosis is slightly progressed. Prominent dorsal fat pad also appears slightly more prominent, now with ruljwikk-yb-cxojwl central spinal canal stenosis with crowding of the intradural nerve roots progressed from previous study. Mild bilateral lateral recess stenosis progressed from previous exam without definite neural impingement. Rydf-pi-ciyjlbcx bilateral neural foraminal stenosis slightly progressed, with disc bulging abutting the exiting L4 nerve roots bilaterally. L3-L4: Diffuse disc bulging is slightly progressed. Flattening of the ventral dural sac slightly progressed. Prominent dorsal fat pad progressed from previous exam with aaunqrny-jj-gyvmpq bilateral facet hypertrophic degenerative changes and interspinous ligament degeneration, similar to prior exam. There is moderate central spinal canal stenosis progressed from previous exam and there is moderate left and zvna-cn-fqpvqzrh right-sided neural foraminal stenosis minimally progressed on the left and stable on the right. L2-L3: There is disc bulging with a superimposed left-sided foraminal/extraforaminal disc protrusion, stable in appearance. Mild flattening of the dural sac is stable with stable prominent dorsal fat pad and moderate bilateral facet arthropathy. Mild canal stenosis is stable and there is a stable slyr-nl-uvhjavzh neural foraminal narrowing, right more than left. L1-L2: Concentric disc bulging with flattening of the dural sac is stable. Mild facet arthropathy is stable. There is susceptibility artifact in the dorsal epidural space similar to previous exam related to spinal stimulator leads entering at this level. No significant canal stenosis. Mild foraminal narrowing noted bilaterally without neural impingement, unchanged. T12-L1: Susceptibility artifact noted distorting the posterior dural sac related to spinal stimulator leads but no significant canal or neural foraminal stenosis on the sagittal T1-weighted images. Minor facet arthropathy noted bilaterally at this level. Spinal stimulator leads extending cephalad along the dorsal epidural space up to the level of the highest level imaged. PARAVERTEBRAL AND INCLUDED EXTRASPINAL SOFT TISSUES: There is posterior paraspinal and psoas muscle sarcopenia. Otherwise unremarkable. MR/MR lumbar spine wo con IMPRESSION: 1. Progression of grade 1 degenerative spondylolisthesis at L4-L5 with progression of disc bulging at this level and progression of posterior element hypertrophic degenerative changes, now with moderate to severe spinal canal stenosis with crowding of the intradural nerve roots progressed from previous exam and stable uane-qt-xwpistdf bilateral neural foraminal stenosis with disc bulging abutting the exiting L4 nerve roots bilaterally. 2. Stable disc bulging and left lateral foraminal/extraforaminal disc protrusion at L2-L3 with stable mild spinal canal stenosis and stable ywqk-hr-ukxftlbd neural foraminal narrowing, right more than left. Progression of disc bulging at L3-L4 and progression of the dorsal fat pad with moderate central spinal canal stenosis progressed from previous exam at this level. 3. Disc bulging and facet arthropathy L1-L2 is stable in appearance. 4. Multilevel bilateral facet joint arthrosis as described above, with progression of epidural fat at L3-L4 and L4-L5. Multilevel bilateral neural foraminal stenosis as detailed by level above. 5. Spinal stimulator leads as described above. 6. Paraspinal and psoas muscle sarcopenia. Assessment & Plan Assessment & Plan (1) Vertebrogenic low back pain: Code(s): M54.51 - Vertebrogenic low back pain Category: Medical Plan: (2) Lumbar back pain with radiculopathy affecting right lower extremity: Code(s): M54.16 - Radiculopathy, lumbar region Category: Medical (3) Sacroiliac joint dysfunction of right side: Code(s): M53.3 - Sacrococcygeal disorders, not elsewhere classified Category: Medical (4) Sacroiliitis: Code(s): M46.1 - Sacroiliitis, not elsewhere classified Category: Medical (5) Disc degeneration, lumbar: Code(s): M51.36 - Other intervertebral disc degeneration, lumbar region Category: Medical (6) Spondylosis of lumbar spine: Code(s): M47.816 - Spondylosis without myelopathy or radiculopathy, lumbar region Category: Medical (7) Chronic pain syndrome: Code(s): G89.4 - Chronic pain syndrome Category: Medical Plan: Intrathecal pump refill. THE PATIENT CAME TODAY IN THE office FOR THE CHANGE OF THE MEDICATION IN her PAIN PUMP. The name and date of were verified and informed consent was obtained for the procedure. ?The pump was interrogated and the residual amount of fluid was found to be 5.5 mL. SHE WAS POSITIONED prone on the bed AND THE AREA OF THE INTRATHECAL PUMP WAS PREPPED WITH CHLORAPREP. The fenestrated drape was sterilely applied over the area of the pump. Sterile gloves were worn and of the aspiration system was assembled containing 2 in 22 gauge noncoring needle, the needle was connected to extension tubing which was connected to the 20 cc sterile syringe. The pain pump was palpated under the skin in the patient's right buttock area. The needle was inserted through the skin and the central plug of the pain pump and fluid was aspirated. The clear fluid was going into the syringe the total amount of the fluid was 6.3 mL .. After that a new batch? of medication was obtained which was containing hydromorphone in concentration 1000 micro g/ml and bupivacaine 30 mg per ml. The admixture was made in 20 cc syringe prepared by [facility] compounding pharmacy. The syringe was connected to the bacterial filter, and then connected to the extension tubing. After that the medication in the syringe was slowly instilled into the pump with aspirations at 15 and 5 cc fajardo.? The pump was reprogrammed with the doses of 100 mg per day with corresponding dose of bupivacaine of the continuous medication to stay the same as the last time. The corresponding dose of the bupivacaine is 1.2 mg per day. she will be able to receive every 3 hours as previously the dose of hydromorphone which was increased today to 120 micro g of hydromorphone and 3.602 mg of bupivacaine on demand 5 times in 24 hour period. (6) Chronic pain syndrome: (8) Generalized osteoarthritis: Code(s): M15.9 - Polyosteoarthritis, unspecified Category: Medical Plan: MRI is done and Modic type changes discovered . I offered this patient intercept procedure. She agreed to go for the procedure. Her insurance company received the appeal. Intra-articular facet injections resulted in no pain improvement. Pump refill is as above. She will be seen for the next pump refill on 04/13/2024. (9) Edema of both lower extremities: Code(s): R60.0 - Localized edema Category: Medical Plan Patient Instructions: I here by testify that I spent 33 minutes in conversation with this patient as well as planning her care and organizing this note. Coding Level of Care Code Est Pt Level 4 (32837) Procedure Only Diagnoses Vertebrogenic low back pain M54.51 Lumbar back pain with radiculopathy affecting right lower extremity M54.16 Sacroiliac joint dysfunction of right side M53.3 Sacroiliitis M46.1 Disc degeneration, lumbar M51.36 Spondylosis of lumbar spine M47.816 Chronic pain syndrome G89.4 Generalized osteoarthritis M15.9 Edema of both lower extremities R60.0
== END 2024-04-14 12:01 | disposition home or self-care (01) ==
PROVIDERS: PCP Internal Medicine; Visit Provider Anesthesiology
DX: M54.51 Vertebrogenic low back pain (principal); M54.16 Radiculopathy, lumbar region; M53.3 Sacrococcygeal disorders, not elsewhere classified; M46.1 Sacroiliitis, not elsewhere classified; Z45.1 Encounter for adjustment and management of infusion pump; M51.36 Other intervertebral disc degeneration, lumbar region; M47.816 Spondylosis without myelopathy or radiculopathy, lumbar region; G89.4 Chronic pain syndrome; M15.9 Polyosteoarthritis, unspecified; R60.0 Localized edema
CPT/HCPCS: 62370; 99214

== ENCOUNTER → 2024-04-14 11:20 | Outpatient (BNVA) | payer OTHER, SELFPAY | PROVIDERS: PCP Internal Medicine; Visit Provider Anesthesiology | DX: Z45.1 Encounter for adjustment and management of infusion pump (principal); M54.51 Vertebrogenic low back pain; M53.3 Sacrococcygeal disorders, not elsewhere classified; M46.1 Sacroiliitis, not elsewhere classified; M51.36 Other intervertebral disc degeneration, lumbar region; G89.4 Chronic pain syndrome; M47.26 Other spondylosis with radiculopathy, lumbar region | CPT/HCPCS: 62370; 99212 ==

== ENCOUNTER 2024-04-24 12:52 | Outpatient (AMB) | payer OTHER, SELFPAY ==
--- NOTE | 2024-04-24 13:00 | MHC.OFFVIS ---
Vital Signs 04/24/24 13:59 Height 5 ft 2 in Weight 175 lb 2 oz BMI 32.0 BP 132/62 Blood Pressure Location Lt brachial Position Sitting Respiration 16 Pulse 54 Pulse Source Pulse Oximeter Pulse Oximetry (%) 96 Oxygen Delivery Method Room Air Intake Visit Reasons: ITDD Pain Pump Refill Intake Note: Patient comes in for intrathecal medication refill. Reports pain 8-9/10. Allergies Seasonal Allergies Allergy (Mild, Verified 04/24/24 14:00) Unknown HPI Comments Details: Noram is a very pleasant 62 year old female who is today in my office for a refill of the pain pump. She reports severe pain in the lower back when she starts to be active and walking. She reports pain with prolonged sitting, she reports pain with flexing forward. The intra-articular L4-5 and L5-S1 bilateral steroid injections were not effective to control her pain. She went for the MRI of the lumbar spine dictation of which reported as below. On the MRI they were significant Modic type 1 changes in the projection of the L3, L4, L5, and S1 vertebra. She has spinal cord stimulator and pain pump implanted. It could be difficult to perform the procedure intercept however I told her that I am willing to try to do the procedure, I do not know the outcome but I will do my best in the attempt to alleviate her pain. The intrathecal pain pump was refilled today . See refill as below. The new medication concentrations is hydromorphone 2 milligrams/mL and bupivacaine 40 milligrams/mL. Bupivacaine is maximal concentration therefore we can not continue to increase it more than 40 milligrams/mL. [facility] Medical History (Updated 01/29/24 @ 15:04 by Kalen Negrete MD) Asthma-COPD overlap syndrome Lumbar back pain with radiculopathy affecting right lower extremity Sacroiliac joint dysfunction of right side Sacroiliitis Disc degeneration, lumbar HPV test positive Chronic pain syndrome Acute blood loss anemia Hypertension Osteoarthritis of right knee MENDENHALL (dyspnea on exertion) Presence of dental bridge Sleep apnea Diabetes Overflow stress urinary incontinence in female Urge incontinence Primary osteoarthritis of hands, bilateral Loose right total knee arthroplasty Hx of carpal tunnel syndrome Pulmonary nodules GERD (gastroesophageal reflux disease) Surgical History Hx of tubal ligation H/O knee surgery History of orthopedic surgery History of arthroplasty of right knee History of pubovaginal sling Hx of colonoscopy History of carpal tunnel release of both wrists History of esophagogastroduodenoscopy (EGD) Previous back surgery History of endometrial ablation Hx of section Family History Mother Diabetes Arthritis Brother Cancer Paternal Aunt Breast cancer Social History Household Members: None Housing: Apartment Are you a primary child care centre director to a significant other at home: No Do you presently have visiting nurse or other home services: Yes ([employer]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) Alcohol intake: former Year quit: 2017 Comment: pt sleeping Patient Tobacco Use Status: Current everyday Tobacco user Tobacco use type: Cigarette Cigarettes Per Day: 5 Years Smoked: 2014 Substance Use Type: Crack/Cocaine and Marijuana service: No Current occupational status: disabled Female Reproductive History Menstrual Age of Menarche: 11 Review of Systems Const All systems reviewed & are unremarkable except as noted in HPI and below Physical Exam Vital Signs: Last Vital Signs Pulse 54 04/24/24 13:59 Resp 16 04/24/24 13:59 BP 132/62 04/24/24 13:59 Pulse Ox 96 04/24/24 13:59 Oxygen Delivery Method Room Air 04/24/24 13:59 BMI result Body Mass Index 32.0 Const General: cooperative and well developed Orientation/consciousness: patient oriented x3 Limitations: language barrier HEENT Head: Yes atraumatic Mouth: no other ( thrush) Throat: No postnasal drainage Eyes General: appearance normal, both eyes and all related structures Sclerae: sclerae normal EOM: EOMs intact bilaterally Neck Neck: Yes supple Lymphatic: no lymphadenopathy noted Chest Chest palpation & inspection: normal inspection of the chest Resp Effort & Inspection: normal respiratory effort, able to speak in complete sentences, normal respiratory pattern, no audible wheezes, no cough and decreased respiratory effort Cardio Jugular venous distension: no JVD GI Inspection: Yes normal to inspection Neuro General: patient oriented x3 Extrem General: No clubbing, No cyanosis and Yes edema (symmetric b/l LE pitting edema.) Assessment & Plan Assessment & Plan (1) Vertebrogenic low back pain: Code(s): M54.51 - Vertebrogenic low back pain Category: Medical Plan: (2) Lumbar back pain with radiculopathy affecting right lower extremity: Code(s): M54.16 - Radiculopathy, lumbar region Category: Medical (3) Sacroiliac joint dysfunction of right side: Code(s): M53.3 - Sacrococcygeal disorders, not elsewhere classified Category: Medical (4) Sacroiliitis: Code(s): M46.1 - Sacroiliitis, not elsewhere classified Category: Medical (5) Disc degeneration, lumbar: Code(s): M51.36 - Other intervertebral disc degeneration, lumbar region Category: Medical (6) Spondylosis of lumbar spine: Code(s): M47.816 - Spondylosis without myelopathy or radiculopathy, lumbar region Category: Medical (7) Chronic pain syndrome: Code(s): G89.4 - Chronic pain syndrome Category: Medical Plan: Intrathecal pump refill. THE PATIENT CAME TODAY IN THE office FOR THE CHANGE OF THE MEDICATION IN her PAIN PUMP. The name and date of were verified and informed consent was obtained for the procedure. ?The pump was interrogated and the residual amount of fluid was found to be 14.0 mL. SHE WAS POSITIONED prone on the bed AND THE AREA OF THE INTRATHECAL PUMP WAS PREPPED WITH CHLORAPREP. The fenestrated drape was sterilely applied over the area of the pump. Sterile gloves were worn and of the aspiration system was assembled containing 2 in 22 gauge noncoring needle, the needle was connected to extension tubing which was connected to the 20 cc sterile syringe. The pain pump was palpated under the skin in the patient's right buttock area. The needle was inserted through the skin and the central plug of the pain pump and fluid was aspirated. The clear fluid was going into the syringe the total amount of the fluid was 14.0 mL .. After that a new batch? of medication was obtained which was containing hydromorphone in concentration 2000 micro g/ml and bupivacaine 40 mg per ml. The admixture was made in 20 cc syringe prepared by [facility] compounding pharmacy. The syringe was connected to the bacterial filter, and then connected to the extension tubing. After that the medication in the syringe was slowly instilled into the pump with aspirations at 15 and 5 cc fajardo.? The pump was reprogrammed with the doses of 100 mg per day with corresponding dose of bupivacaine of the continuous medication to stay the same as the last time. The corresponding dose of the bupivacaine is 1.2 mg per day. she will be able to receive every 3 hours as previously the dose of hydromorphone which was increased today to 120 micro g of hydromorphone and 3.602 mg of bupivacaine on demand 5 times in 24 hour period. A bridge bolus was introduced for the next 40 hours she will not be able to administer herself medications on demand. (6) Chronic pain syndrome: (8) Generalized osteoarthritis: Code(s): M15.9 - Polyosteoarthritis, unspecified Category: Medical Plan: The patient is scheduled for intercept procedure L3-L4 L5 and S1. Intra-articular facet injections resulted in no pain improvement. Pump refill is as above. She will be seen for the next pump refill on 06/12/2024 (9) Edema of both lower extremities: Code(s): R60.0 - Localized edema Category: Medical Plan Coding Level of Care Code Est Pt Level 3 (23753) Procedure Only Diagnoses Vertebrogenic low back pain M54.51 Lumbar back pain with radiculopathy affecting right lower extremity M54.16 Sacroiliac joint dysfunction of right side M53.3 Sacroiliitis M46.1 Disc degeneration, lumbar M51.36 Spondylosis of lumbar spine M47.816 Chronic pain syndrome G89.4 Generalized osteoarthritis M15.9 Edema of both lower extremities R60.0
[2024-04-24 13:59] VITALS: BP 132/62; PULSE 54; RESP 16; O2SAT 96; BMI 32.0
== END 2024-04-24 13:41 | disposition home or self-care (01) ==
PROVIDERS: PCP Internal Medicine; Visit Provider Anesthesiology
DX: M54.51 Vertebrogenic low back pain (principal); M54.16 Radiculopathy, lumbar region; M53.3 Sacrococcygeal disorders, not elsewhere classified; M46.1 Sacroiliitis, not elsewhere classified; Z45.1 Encounter for adjustment and management of infusion pump; M51.36 Other intervertebral disc degeneration, lumbar region; M47.816 Spondylosis without myelopathy or radiculopathy, lumbar region; G89.4 Chronic pain syndrome; M15.9 Polyosteoarthritis, unspecified; R60.0 Localized edema
CPT/HCPCS: 62370; 99213

== ENCOUNTER → 2024-04-24 12:52 | Outpatient (BNVA) | payer OTHER, SELFPAY | PROVIDERS: PCP Internal Medicine; Visit Provider Anesthesiology | DX: M54.51 Vertebrogenic low back pain (principal); M54.16 Radiculopathy, lumbar region; M53.3 Sacrococcygeal disorders, not elsewhere classified; M46.1 Sacroiliitis, not elsewhere classified; M51.36 Other intervertebral disc degeneration, lumbar region; M47.816 Spondylosis without myelopathy or radiculopathy, lumbar region; G89.4 Chronic pain syndrome; M15.9 Polyosteoarthritis, unspecified; R60.0 Localized edema; Z45.1 Encounter for adjustment and management of infusion pump; Z79.899 Other long term (current) drug therapy | CPT/HCPCS: 62370; 99212 ==

== ENCOUNTER 2024-05-01 08:05 | Outpatient (REF) | payer OTHER, SELFPAY ==
--- NOTE | ~2024-05-01 | US_ITS ---
EXAMINATION: US ABDOMEN COMPLETE CLINICAL INFORMATION: Abdominal pain and bloating. COMPARISON: X-ray abdomen [facility] 12/22/2022. CT abdomen and pelvis 10/11/2022. Renal ultrasound 07/01/2018 ultrasound abdomen 03/05/2011. TECHNIQUE: Real-time imaging of the abdominal viscera. FINDINGS: PANCREAS: Normal. ABDOMINAL AORTA: The proximal, mid, and distal segments are normal in caliber. INFERIOR VENA CAVA: Visualized portions are normal. LIVER: Liver is mildly enlarged measuring 19 cm. The liver contour is normal. Parenchymal echogenicity is normal. No focal hepatic lesion. There is no intrahepatic biliary duct dilatation seen. Multiple hepatic calcifications are noted largest measuring up to 6 mm. GALLBLADDER: Region of focal sludge versus wall thickening along the posterior gallbladder fundus measuring up to 2.1 cm. No pericholecystic fluid. Sonographic Bhatt sign is negative. COMMON BILE DUCT: Normal in caliber measuring 0.6 cm in diameter. RIGHT KIDNEY: Normal. No hydronephrosis. No renal calculi or focal parenchymal lesions. The kidney measures 11.4 cm in maximum dimension. LEFT KIDNEY: Normal. No hydronephrosis. No renal calculi or focal parenchymal lesions. The kidney measures 12.1 cm in maximum dimension. SPLEEN: Normal. The spleen measures 8.9 cm in maximum dimension. FREE FLUID: None. US/US abdomen complete IMPRESSION: 1. Region of focal sludge versus wall thickening along the posterior gallbladder fundus measuring up to 2.1 cm. No sonographic evidence of acute cholecystitis. 2. Multiple hepatic calcifications are noted largest measuring up to 6 mm. 3. Liver is mildly enlarged measuring 19 cm.
[2024-05-01 17:07] LABS: CDiff Gene PCR NEGATIVE (Negative)
[2024-05-01 18:10] LABS: Adenovirus F 40/41 Not Detected (Not Detect.); Astrovirus Not Detected (Not Detect.); Campylobacter Not Detected (Not Detect.); Cryptosporidium Not Detected (Not Detect.); Cyclospora cayetanensis Not Detected (Not Detect.); E. coli EAEC Not Detected (Not Detect.); E. coli EPEC Not Detected (Not Detect.); E. coli ETEC Not Detected (Not Detect.); E. coli STEC Not Detected (Not Detect.); Entamoeba histolytica Not Detected (Not Detect.); Giardia lamblia Not Detected (Not Detect.); Norovirus GI/GII Not Detected (Not Detect.); Plesiomonas shigelloides Not Detected (Not Detect.); Rotavirus A Not Detected (Not Detect.); Salmonella Not Detected (Not Detect.); Sapovirus Not Detected (Not Detect.); Shigella sp./EIEC Not Detected (Not Detect.); Vibrio Not Detected (Not Detect.); Vibrio Cholerae Not Detected (Not Detect.); Yersinia enterocolitica Not Detected (Not Detect.)
[2024-05-01 18:48] LABS: Leukocytes Stool Qualitative NEGATIVE (NEGATIVE)
[2024-05-11 01:29] LABS: Pancreatic Elastase-1 >500 mcg/g
[2024-05-13 17:58] LABS: Calprotectin, Fecal 574 mcg/g
== END 2024-05-01 08:06 | disposition home or self-care (01) ==
LOC: HO.US 08:05
PROVIDERS: Internal Medicine Gastroenterology; PCP Internal Medicine; Visit Provider Family Medicine
DX: K52.9 Noninfective gastroenteritis and colitis, unspecified (principal); K21.9 Gastro-esophageal reflux disease without esophagitis
CPT/HCPCS: 36415; 76700; 82656; 83993; 87177; 87209; 87329; 87493; 87507; 89055

== ENCOUNTER 2024-05-02 07:01 | Day surgery (SDC) | payer OTHER, SELFPAY ==
--- NOTE | 2024-04-30 13:54 | P.CONAN_ITS ---
Documented by User: Yolande Montemayor NP 04/30/24 13:56 HPI - Anesthesia Eval Consult details Narrative: 63yo F for L3,L4,L5 and S1 Basivertebral Nerve Ablation (Intracept RFA) Follows renal for CKD. Stable at 03/2024 visit. ARB adjusted d/t low BP PMFSH Active Problems Active Problems: All Active Problems Proteinuria (Acute) CKD (chronic kidney disease) (Acute) Personal history of nicotine dependence (Acute) Asthma-COPD overlap syndrome (Acute) Chronic diarrhea (Acute) Vertebrogenic low back pain (Acute) ASCUS with positive high risk HPV cervical (Acute) Edema of both lower extremities (Acute) Generalized osteoarthritis (Acute) Varicose veins of right lower extremity with inflammation (Acute) Diarrhea (Acute) Neck pain (Acute) Epigastric pain (Acute) Duodenal diverticulum (Acute) Abdominal bloating (Acute) Colon cancer screening (Acute) Early satiety (Acute) Osteoarthritis of hands, bilateral (Acute) Trigger finger, left little finger (Acute) Osteoarthritis of fingers of both hands (Acute) Numbness and tingling in both hands (Acute) Status post revision of total knee replacement (Acute) Chronic constipation (Acute) Well woman exam (Acute) Spondylosis of lumbar spine (Acute) Anemia (Acute) HPV in female (Acute) Pre-procedural examination (Acute) Dysplasia of cervix, low grade (COLEMAN 1) (Acute) Bilateral hand numbness (Acute) Asthma (Acute) COPD (chronic obstructive pulmonary disease) (Acute) Pulmonary nodules (Acute) Acute bronchitis (Acute) Preop pulmonary/respiratory exam (Acute) Upper abdominal pain (Acute) Abdominal bloating (Acute) Lumbar back pain with radiculopathy affecting right lower extremity (Acute) Sacroiliac joint dysfunction of right side (Acute) Sacroiliitis (Acute) Disc degeneration, lumbar (Acute) Chronic pain syndrome (Acute) Overflow stress urinary incontinence in female (Acute) Urge incontinence (Acute) Primary osteoarthritis of hands, bilateral (Acute) GERD (gastroesophageal reflux disease) (Acute) Past Medical History Medical History (Updated 01/29/24 @ 15:04 by Kalen Negrete MD) Asthma-COPD overlap syndrome Lumbar back pain with radiculopathy affecting right lower extremity Sacroiliac joint dysfunction of right side Sacroiliitis Disc degeneration, lumbar HPV test positive Chronic pain syndrome Acute blood loss anemia Hypertension Osteoarthritis of right knee MENDENHALL (dyspnea on exertion) Presence of dental bridge Sleep apnea Diabetes Overflow stress urinary incontinence in female Urge incontinence Primary osteoarthritis of hands, bilateral Loose right total knee arthroplasty Hx of carpal tunnel syndrome Pulmonary nodules GERD (gastroesophageal reflux disease) Family History Family History Mother Diabetes Arthritis Brother Cancer Paternal Aunt Breast cancer Family history of problems with anesthesia: No Surgical History Surgical History Hx of tubal ligation H/O knee surgery History of orthopedic surgery History of arthroplasty of right knee History of pubovaginal sling Hx of colonoscopy History of carpal tunnel release of both wrists History of esophagogastroduodenoscopy (EGD) Previous back surgery History of endometrial ablation Hx of section History of Problems with Anesthesia: No Social History Social History Household Members: None Housing: Apartment Are you a primary child care education coordinator to a significant other at home: No Do you presently have visiting nurse or other home services: 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) Alcohol intake: former Year quit: 2017 Comment: pt sleeping Patient Tobacco Use Status: Current everyday Tobacco user Tobacco use type: Cigarette Cigarettes Per Day: 5 Years Smoked: 2014 Substance Use Type: Crack/Cocaine and Marijuana Advance Directives: No Advance Directives Information Provided: Yes service: No Current occupational status: disabled Meds Allergies Allergy/AdvReac Type Severity Reaction Status Date / Time Seasonal Allergies Allergy Mild Unknown Verified 04/24/24 14:00 Home Medications ?Medication ?Instructions ?Recorded ?Confirmed ?Last Taken ?Type cetirizine 10 mg tablet 10 mg PO DAILY 09/07/20 09/27/23 Unknown History cholecalciferol (vitamin D3) 50 50 mcg PO DAILY 09/07/20 09/27/23 Unknown History mcg (2,000 unit) tablet ferrous gluconate 240 mg (27 mg 240 mg PO Q OTHER DAY 09/07/20 09/27/23 03/20/23 History iron) tablet fluticasone propionate 50 1 spray intranasal BID 09/07/20 09/27/23 Unknown History mcg/actuation nasal spray,suspension losartan 100 mg tablet 100 mg PO DAILY 09/07/20 09/27/23 12/27/22 History zolpidem 10 mg tablet 10 mg PO BEDTIME PRN Insomnia 09/07/20 09/27/23 Unknown Hi story mupirocin 2 % topical ointment topical TID 03/10/21 09/27/23 Unknown History ascorbic acid (vitamin C) 250 mg 250 mg PO DAILY 05/22/22 09/27/23 Unknown History tablet acetaminophen 650 mg mg PO 01/29/24 Unknown History tablet,extended release chlorthalidone 50 mg tablet 50 mg PO DAILY 01/29/24 Unknown History clonazepam 0.5 mg tablet mg PO 01/29/24 Unknown History doxepin 50 mg capsule 50 mg PO BEDTIME 01/29/24 Unknown History escitalopram oxalate 10 mg tablet 10 mg PO DAILY 01/29/24 Unknown History loperamide 2 mg capsule 2 mg PO Q6H PRN 01/29/24 Unknown History metformin 500 mg tablet 500 mg PO BID 01/29/24 Unknown History simvastatin 40 mg tablet 40 mg PO BEDTIME 01/29/24 Unknown History Exam Pertinent Lab Results Pertinent Lab Results: Laboratory Tests 02/11/24 12:54 WBC 8.6 Hgb 10.7 L Hct 32.4 L Plt Count 299 Sodium 144 Potassium 4.1 Chloride 103 Carbon Dioxide 32 H BUN 7 L Creatinine 0.90 Assessment and Plan Assessment Anesthesia Assessment: Chart Reviewed Final Anesthetic Review Family History of Problems with Anesthesia: No History of Problems with Anesthesia: No Documented by User: Zahraa Lim MD 05/02/24 08:12 [facility] Past Medical History Medical History (Updated 01/29/24 @ 15:04 by Kalen Negrete MD) Asthma-COPD overlap syndrome Lumbar back pain with radiculopathy affecting right lower extremity Sacroiliac joint dysfunction of right side Sacroiliitis Disc degeneration, lumbar HPV test positive Chronic pain syndrome Acute blood loss anemia Hypertension Osteoarthritis of right knee MENDENHALL (dyspnea on exertion) Presence of dental bridge Sleep apnea Diabetes Overflow stress urinary incontinence in female Urge incontinence Primary osteoarthritis of hands, bilateral Loose right total knee arthroplasty Hx of carpal tunnel syndrome Pulmonary nodules GERD (gastroesophageal reflux disease) Family History Family History Mother Diabetes Arthritis Brother Cancer Paternal Aunt Breast cancer Surgical History Surgical History Hx of tubal ligation H/O knee surgery History of orthopedic surgery History of arthroplasty of right knee History of pubovaginal sling Hx of colonoscopy History of carpal tunnel release of both wrists History of esophagogastroduodenoscopy (EGD) Previous back surgery History of endometrial ablation Hx of section Social History Social History Household Members: None Housing: Apartment Are you a primary child care education coordinator to a significant other at home: No Do you presently have visiting nurse or other home services: 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) Alcohol intake: former Year quit: 2017 Comment: pt sleeping Patient Tobacco Use Status: Current everyday Tobacco user Tobacco use type: Cigarette Cigarettes Per Day: 5 Years Smoked: 2014 Substance Use Type: Crack/Cocaine and Marijuana Advance Directives: No Advance Directives Information Provided: Yes service: No Current occupational status: disabled Meds Allergies Allergy/AdvReac Type Severity Reaction Status Date / Time Seasonal Allergies Allergy Mild Unknown Verified 04/24/24 14:00 Home Medications ?Medication ?Instructions ?Recorded ?Confirmed ?Last Taken ?Type cetirizine 10 mg tablet 10 mg PO DAILY 09/07/20 09/27/23 Unknown History cholecalciferol (vitamin D3) 50 50 mcg PO DAILY 09/07/20 09/27/23 Unknown History mcg (2,000 unit) tablet ferrous gluconate 240 mg (27 mg 240 mg PO Q OTHER DAY 09/07/20 09/27/23 03/20/23 History iron) tablet fluticasone propionate 50 1 spray intranasal BID 09/07/20 09/27/23 Unknown History mcg/actuation nasal spray,suspension losartan 100 mg tablet 100 mg PO DAILY 09/07/20 09/27/23 12/27/22 History zolpidem 10 mg tablet 10 mg PO BEDTIME PRN Insomnia 09/07/20 09/27/23 Unknown History mupirocin 2 % topical ointment topical TID 03/10/21 09/27/23 Unknown History ascorbic acid (vitamin C) 250 mg 250 mg PO DAILY 05/22/22 09/27/23 Unknown History tablet acetaminophen 650 mg mg PO 01/29/24 Unknown History tablet,extended release chlorthalidone 50 mg tablet 50 mg PO DAILY 01/29/24 Unknown History clonazepam 0.5 mg tablet mg PO 01/29/24 Unknown History doxepin 50 mg capsule 50 mg PO BEDTIME 01/29/24 Unknown History escitalopram oxalate 10 mg tablet 10 mg PO DAILY 01/29/24 Unknown History loperamide 2 mg capsule 2 mg PO Q6H PRN 01/29/24 Unknown History metformin 500 mg tablet 500 mg PO BID 01/29/24 Unknown History simvastatin 40 mg tablet 40 mg PO BEDTIME 01/29/24 Unknown History Exam Airway Mallampati Class: III TM Dist: >3cm Neck ROM: Full Denture: Upper Assessment and Plan Assessment Anesthesia Assessment: Anesthesia Plan Discussed Final Anesthetic Review NPO: Yes ASA Class: III Final Preanesthetic Review: No Changes in Pt Med Stat, Meds/Allgs Chart Reviewed and Anes Risks/Benef Reviewed Patient Risk: Intermediate Procedure Risk: Low Anesthetic Plan Anesthetic Plan: GA Disposition: Standard PACU
[2024-05-02] VITALS (12 sets, daily range): BP systolic 100–171; BP diastolic 49–78; PULSE 50–93; RESP 10–18; TEMP 36.4–36.6; O2SAT 95–99; BMI 32.0
--- NOTE | ~2024-05-02 | FL_ITS ---
EXAMINATION: XR FLUOROSCOPY WITH IMAGES CLINICAL INFORMATION: Spinal stimulator; lumbar Intra-Op. COMPARISON: MR lumbar 12/17/2023. TECHNIQUE: Fluoroscopy provided to: Dr. Rees Fluoroscopy time: 3.37 minutes DAP: 36.379 Gycm2 Images: 5 FINDINGS: 5 images demonstrate PA and lateral lumbar spine with surgical probe overlying L3, L4, L5, and S1. Generator pack noted in place. FL/FL guidance in OR IMPRESSION: Fluoroscopic guidance. Please refer to the full operative report for details. Electronically signed by: Levar Mckeon MD 07/02/2024 04:52 PM EDT
--- NOTE | 2024-05-02 08:10 | MHC.SHP ---
Pre-Procedural Eval Section A - 24 Hr Update-Section A only Date of Service: 05/02/24 The patient is an INPATIENT: No Changes since office visit: Yes Patient answered all questions The patient has been examined within 24 hours of the surgical procedure. The History & Physical has been completed within 30 days and I have reviewed it.: No Section B - Complete if H&P > 30 days Chief Complaint: Vertebrogenic low back pain Details of Present Illness: as above Relevant Family History (Specify if Yes): No Relevant Social History: None Present Medications: see Short Stay Collaborative assessment Medical History: No relevant PMH History of Previous Operations: Relevant previous surgery/procedure and date(s) Allergies: Allergies Allergy/AdvReac Type Severity Reaction Status Date / Time Seasonal Allergies Allergy Mild Unknown Verified 04/24/24 14:00 Review of Systems Sugical H&P ROS: Negative: Constitution, Cardiovascular, Respiratory, Neurological, Psychiatric, Hem-Onc, Allergic/Immunologic, Gastrointestinal, Genitourinary, Musculoskeletal, Integumentary, Endocrine and Eyes/Ears/Nose/Throat Exam Surgical H&P Exam: Normal: HEENT, Normal: Heart, Normal: Lungs, Normal: Extremities, Normal: Abdomen, Normal: Skin and Normal: Neurological Plan Diagnosis/Plan: Unchanged I have reviewed the history and physical and performed a pertinent physical examination on my patient. No changes have occurred unless specified. Time Spent With Patient Time: Total time managing care of this patient today ____ minutes.
[2024-05-02 08:13] LABS: Glucose, Whole Blood 109 mg/dL (60-115)
[2024-05-02] MEDS: Lactated Ringers 1,000 ML 100 ML IVCONT (08:41)
--- NOTE | 2024-05-02 08:44 | PC.NURSE ---
Decadron 4mg IV pulled from xis, given by Dr. Lim Anesthesiologist.
--- NOTE | 2024-05-02 11:32 | P.OP_ITS ---
Operative Note Operative Note Date of Service: 05/02/24 Narrative: Procedure: Basivertebral nerve (BVN) ablation? Intracept Procedure S1, L5 , L4, L3. Indications for Procedure:? Norma Fried?is very pleasant 63 years old female who is suffering from axial low back pain exacerbated by forward flexing, prolong sitting, prolonged standing, walking.?? Prior to that the patient received multiple injections to treat back pain however those injections were not effective for control of her pain.? She was given spinal cord stimulator which helps her pain radiation to the bilateral lower extremities. She also was started on intrathecal drug delivery system pain pump and we were not able to make a good correction to her pain syndrome with the pain pump medications. She was sent to MRI and ?attention was attracted to Modic type changes at the above mentioned vertebrae and she was offered Intracept procedure, she came today to the operating room to receive the procedure.? Before the procedure patient turned her spinal cord stimulator off to avoid interference with RFA of the device. Informed consent was obtained delineating risk of bleeding, infection, including osteomyelitis of the vertebral bodies, peripheral nerve damage , damage to spinal canal with CSF leak , post dural puncture headache.? The patient came to the operating room ?and positioned supine on the stretcher..? [employer] monitors were applied, general anesthesia was induced and the patient was endotracheally intubated. She was transferred on the operating table prone all pressure points were protected. Procedure Time Out: Patient ID confirmed, correct procedure to be performed, correct site and/or side for procedure , need for antibiotic administration, need for DVT prophylaxis, risk of fire.? The patient received cefazolin 2 g intravenously 30 minutes before onset of the procedure as well as dexamethasone 10 mg intravenously push. The entire back was sterilely prepped with ChloraPrep twice and draped with sterile self adhesive utility towels and covered with full body drape.? Two sterilely draped C-arms were positioned in fixed anterior posterior and lateral positions alongside the patient's torso.? The approaches at the patient's lower lumbar spine vertebra would need to be done all from the left side because on the right side she had intrathecal catheter going into the lumbar/thoracic spinal canal between L2 and L3 vertebra?on the right side C-arm were moved to visualize the target at the superolateral aspect of S1. The C-arm was rotated to a Ames view to square off the superior endplate at S1. The C-arm was then rotated to the left -20 degrees for an approach to the left S1 pedicle. The skin entry point was identified and infiltrated with mixture of 2% lidocaine with ropivacaine 0.5% 1 to 1 4 cc. A 22-gauge 5-inch spinal needle was used to anesthetize the track to the? pedicle and periosteum and confirm the introducer cannula trajectory. A small horizontal 5 mm skin incision was made with 10 scalpel blade. The introducer cannula with bevel tip was then introduced through the skin, subcutaneous tissue and paraspinal muscle until bony contact was made. The position was checked in the AP and lateral plane. Using a mallet, the trocar was then advanced through the left pedicle to the posterior aspect of the vertebral body using a combination of AP and lateral views to ensure appropriate traversing of the pedicle and no breaching of the pedicle medially. Once the trocar was in the posterior aspect of the S1 vertebral body, the trocar was removed from the cannula and the curved cannula assembly with the nitinol J-stylet was inserted. The spin wheel was rotated counterclockwise permitting excursion of the J-stylet. The curved cannula assembly was then advanced using a mallet in 1-2 mm increments. The J-stylet was observed to traverse the vertebral body in the midline in both the AP and lateral views. The J-stylet was removed and replaced with the straight stylet to reach the BVN target. Target was reached when the tip of the stylet was noted to be approximately 50% anterior of the posterior wall of the S1 in the lateral view, 40% inferior from the superior endplate and it crossed the midline of the S1 spinous process in the AP view. The stylet was then removed. The bipolar radiofrequency (RF) probe was ?inserted into the introducer cannula. The spin wheel was rotated clockwise to retract the PEEK sleeve to expose the proximal electrode on the radiofrequency probe. The BVN was then ablated using [employer]?s standard RFG algorithm for 15 minutes. --- While the ablation was occurring at below level the C-arm was moved to visualize the target at the superolateral aspect of the L5 vertebral body using the jeanette headley similar to the S1 vertebral body on the left side. The patient had intrathecal pain pump and intrathecal catheter implanted on the right so we avoided the right side for the procedure. The C-arm was rotated to square off the superior endplate at L5. The superolateral left L5 -pedicle was identified, and the skin entry point identified and infiltrated with mixture of 2% lidocaine with ropivacaine 0.5% one to one using a 25- gauge 1-1/2 inch needle. A 22- gauge 5-inch spinal needle was used to anesthetize the track to the pedicle and periosteum and confirm the introducer cannula trajectory. A skin incision was made with 11 scalpel blade 5 mm. The introducer cannula with bevel tip was then introduced through the skin, subcutaneous tissue and paraspinal muscle until bony contact was made. The position was checked in the AP and lateral plane. Using a mallet, the trocar was then advanced through the pedicle to the posterior aspect of the vertebral body using a combination of AP and lateral views to ensure appropriate traversing of the pedicle and no breaching of the pedicle medially or inferiorly. Once the trocar was in the posterior aspect of the L5 vertebral body, the trocar was removed from the cannula and the curved cannula assembly with the nitinol J- stylet was inserted. The spin wheel was rotated counterclockwise permitting excursion of the J-stylet. The curved cannula assembly was then advanced using a mallet in 1-2 mm increments. The J-stylet was observed to traverse the vertebral body in the AP and lateral views. Target was reached when the tip of the stylet was 45 % anterior of the posterior wall of the L5 in the lateral view (midway between the superior and inferior endplates) and it crossed the midline of the L5 spinous process in the AP view. The stylet was then removed. The bipolar radiofrequency (RF) probe was removed from the previous vertebral body, the tip cleaned and was inserted into the introducer cannula in its ablation position. The spin wheel was rotated clockwise to retract the PEEK sleeve to expose the proximal electrode on the radiofrequency probe. The BVN was then ablated using [employer]?s standard RFG algorithm for 7 minutes. After that the attention was concentrated on the L4 vertebra. C-arm was moved to visualize the target at the superolateral aspect of the L4 vertebral body on the left side. The C-arm was rotated to sq off superior endplate of L4 and rotated right obtain the oblique view. The superior lateral left L4 pedicle was identified and the skin entry point was identified and infiltrated with mixture of 2% lidocaine and ropivacaine 0.5% 1-1 using 25 gauge 1/2 inch needle. A 22 gauge 5 in spinal needle was used to anesthetize the tract to the pedicle and periosteum and confirm the introducer cannula trajectory. The skin incision was made using 11 scalpel blade 5 mm. The introducer cannula with bevel tip was introduced through the skin subcutaneous tissue and paraspinal muscle until bony contact was made. The position was checked on AP and lateral plane. The curved cannula assembly was then advanced using a mallet in 1-2 mm increments. The J-stylet was observed to traverse the vertebral body in the AP and lateral views. Target was reached when the tip of the stylet was 45 % anterior of the posterior wall of the L4 in the lateral view (midway between the superior and inferior endplates) and it crossed the midline of the L4 spinous process in the AP view. The stylet was then removed. The bipolar radiofrequency (RF) probe was inserted into the introducer cannula. The spin wheel was rotated clockwise to retract the PEEK sleeve to expose the proximal electrode on the radiofrequency probe. The BVN was then ablated using [employer]?s standard RFG algorithm for 7 minutes. We had to wait until completion of the RFA on the below level and after that the C-arm was moved to visualize the target at the superolateral aspect of the L3 vertebral body vertebral body this time on the left side. The C-arm was rotated to square off the superior endplate at L3 . The superolateral left L3 was identified, and the skin entry point identified and infiltrated with mixture of 2% lidocaine with ropivacaine 0.5% one to one using a 25- gauge 1-1/2 inch needle. A 22-gauge 5-inch spinal needle was used to anesthetize the track to the pedicle and periosteum and confirm the introducer cannula trajectory. A skin incision was made with 11 scalpel blade 5 mm. The introducer cannula with bevel tip was then introduced through the skin, subcutaneous tissue and paraspinal muscle until bony contact was made. The position was checked in the AP and lateral plane. Using a mallet, the trocar was then advanced through the pedicle to the posterior aspect of the vertebral body using a combination of AP and lateral views to ensure appropriate traversing of the pedicle and no breaching of the pedicle medially or inferiorly. Once the trocar was in the posterior aspect of the L3 vertebral body, the trocar was removed from the cannula and the curved cannula assembly with the nitinol J- stylet was inserted. The spin wheel was rotated counterclockwise permitting excursion of the J-stylet. The curved cannula assembly was then advanced using a mallet in 1-2 mm increments. The J-stylet was observed to traverse the vertebral body in the AP and lateral views. Target was reached when the tip of the stylet was 45 % anterior of the posterior wall of the L5 in the lateral view (midway between the superior and inferior endplates) and it crossed the midline of the L3 spinous process in the AP view. The stylet was then removed. The bipolar radiofrequency (RF) probe was removed from the previous vertebral body, the tip cleaned and was inserted into the introducer cannula in its ablation position. The spin wheel was rotated clockwise to retract the PEEK sleeve to expose the proximal electrode on the radiofrequency probe. The BVN was then ablated using [employer]?s standard RFG algorithm for 7 minutes. Upon completion of the procedure the instruments were removed from the patient, single silk 0-0 suture were applied to the each patient's for small incisions. Sterile dressing with bacitracin applied. The patient was awaken, extubated, taken outside of the operating room to recovery room where she recovered uneventfully.
--- NOTE | 2024-05-02 11:37 | P.BOP_ITS ---
Brief Operative Note Date of Service: 05/02/24 Pre-op diagnosis: Vertebra genic back pain, chronic pain syndrome Post-op diagnosis: same Procedure: Basivertebral nerve radiofrequency ablation L3, L4, L5, S1. Implants: None Surgeon: Luis Enrique Rees MD Anesthesia: GETA Was an Necktie Operator Pockets And Pieces used for this Procedure?: No Estimated blood loss (mL): 50 Pathology: none sent Condition: stable Disposition: PACU
== END 2024-05-02 14:50 | disposition home or self-care (01) ==
PROVIDERS: PCP Internal Medicine; Visit Provider Anesthesiology
PROC: (CPT 64628; principal; 2024-05-02 08:30)
DX: M54.51 Vertebrogenic low back pain (principal); G89.4 Chronic pain syndrome; M54.16 Radiculopathy, lumbar region; M53.3 Sacrococcygeal disorders, not elsewhere classified; M46.1 Sacroiliitis, not elsewhere classified; M51.36 Other intervertebral disc degeneration, lumbar region; M47.816 Spondylosis without myelopathy or radiculopathy, lumbar region; R60.0 Localized edema; Z97.8 Presence of other specified devices; J44.9 Chronic obstructive pulmonary disease, unspecified; I12.9 Hypertensive chronic kidney disease with stage 1 through stage 4 chronic kidney disease, or unspecified chronic kidney disease; E11.22 Type 2 diabetes mellitus with diabetic chronic kidney disease; N18.9 Chronic kidney disease, unspecified; F17.210 Nicotine dependence, cigarettes, uncomplicated
CPT/HCPCS: 64628; 64629 ×2; 82947; C1889; J0690; J1100; J1596; J2250; J2405; J2704; J2795; J3010

== ENCOUNTER → 2024-05-02 07:01 | Outpatient (BNV) | payer OTHER, SELFPAY | PROVIDERS: PCP Internal Medicine; Visit Provider Anesthesiology | DX: M54.51 Vertebrogenic low back pain (principal) | CPT/HCPCS: 64628 ==

== ENCOUNTER 2024-05-08 09:53 | Outpatient (AMB) | payer OTHER, SELFPAY ==
--- NOTE | 2024-05-08 09:55 | MHC.OFFVIS ---
Vital Signs 05/08/24 10:15 Height 5 ft 2 in Weight 175 lb BMI 32.0 BP 134/62 Blood Pressure Location Lt brachial Position Sitting Respiration 14 Pulse 56 Pulse Source Pulse Oximeter Pulse Oximetry (%) 97 Oxygen Delivery Method Room Air Intake Visit Reasons: S/p L3, L4, L5, and S1 BVN (Intracept) 05/02/24 Intake Note: Patient comes in for post-op. Reports pain 05/17. Allergies Seasonal Allergies Allergy (Mild, Verified 05/08/24 10:15) Unknown HPI Comments Details: Norma is a very pleasant 62 year old female who is today in my office for the dressing change on the patient's small incisions after intercept procedure. Patient still reports pain in the projection of the incisions and area surrounding the passes of the trocar to her left-sided pedicles. The wounds are minimally red, but there is no swelling no pathological discharge sutures competent. I will remove sutures in 1 week. Her PTM device stopped working. I recommended her to get contacted with [employer] inbound customer service representative maybe they have the PTM devices available for distribution. She had intercept L3,-L4, L5 and S1. She went for the MRI of the lumbar spine dictation of which reported as below. On the MRI they were significant Modic type 1 changes in the projection of the L3, L4, L5, and S1 vertebra. She has spinal cord stimulator and pain pump implanted. It could be difficult to perform the procedure intercept however I told her that I am willing to try to do the procedure, I do not know the outcome but I will do my best in the attempt to alleviate her pain. The intrathecal pain pump is working. The new medication concentrations is hydromorphone 2 milligrams/mL and bupivacaine 40 milligrams/mL. Bupivacaine is maximal concentration therefore we can not continue to increase it more than 40 milligrams/mL. [facility] Medical History (Updated 01/29/24 @ 15:04 by Kalen Negrete MD) Asthma-COPD overlap syndrome Lumbar back pain with radiculopathy affecting right lower extremity Sacroiliac joint dysfunction of right side Sacroiliitis Disc degeneration, lumbar HPV test positive Chronic pain syndrome Acute blood loss anemia Hypertension Osteoarthritis of right knee MENDENHALL (dyspnea on exertion) Presence of dental bridge Sleep apnea Diabetes Overflow stress urinary incontinence in female Urge incontinence Primary osteoarthritis of hands, bilateral Loose right total knee arthroplasty Hx of carpal tunnel syndrome Pulmonary nodules GERD (gastroesophageal reflux disease) Surgical History Hx of tubal ligation H/O knee surgery History of orthopedic surgery History of arthroplasty of right knee History of pubovaginal sling Hx of colonoscopy History of carpal tunnel release of both wrists History of esophagogastroduodenoscopy (EGD) Previous back surgery History of endometrial ablation Hx of section Family History Mother Diabetes Arthritis Brother Cancer Paternal Aunt Breast cancer Social History Household Members: None Housing: Apartment Are you a primary healthcare corporate account director to a significant other at home: No Do you presently have visiting nurse or other home services: Yes ([employer]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) Alcohol intake: former Year quit: 2017 Comment: pt sleeping Patient Tobacco Use Status: Current everyday Tobacco user Tobacco use type: Cigarette Cigarettes Per Day: 5 Years Smoked: 2014 Second Hand Smoke Exposure: No Substance Use Type: Crack/Cocaine and Marijuana service: No Current occupational status: disabled Female Reproductive History Menstrual Age of Menarche: 11 Review of Systems Const All systems reviewed & are unremarkable except as noted in HPI and below Physical Exam Vital Signs: Last Vital Signs Pulse 56 05/08/24 10:15 Resp 14 05/08/24 10:15 BP 134/62 05/08/24 10:15 Pulse Ox 97 05/08/24 10:15 Oxygen Delivery Method Room Air 05/08/24 10:15 BMI result Body Mass Index 32.0 Const General: cooperative and well developed Orientation/consciousness: patient oriented x3 Limitations: language barrier HEENT Head: Yes atraumatic Mouth: no other ( thrush) Throat: No postnasal drainage Eyes General: appearance normal, both eyes and all related structures Sclerae: sclerae normal EOM: EOMs intact bilaterally Neck Neck: Yes supple Lymphatic: no lymphadenopathy noted Chest Chest palpation & inspection: normal inspection of the chest Resp Effort & Inspection: normal respiratory effort, able to speak in complete sentences, normal respiratory pattern, no audible wheezes, no cough and decreased respiratory effort Cardio Jugular venous distension: no JVD GI Inspection: Yes normal to inspection Neuro General: patient oriented x3 Extrem General: No clubbing, No cyanosis and Yes edema (symmetric b/l LE pitting edema.) Assessment & Plan Assessment & Plan (1) Vertebrogenic low back pain: Code(s): M54.51 - Vertebrogenic low back pain Category: Medical Plan: (2) Lumbar back pain with radiculopathy affecting right lower extremity: Code(s): M54.16 - Radiculopathy, lumbar region Category: Medical (3) Sacroiliac joint dysfunction of right side: Code(s): M53.3 - Sacrococcygeal disorders, not elsewhere classified Category: Medical (4) Sacroiliitis: Code(s): M46.1 - Sacroiliitis, not elsewhere classified Category: Medical (5) Disc degeneration, lumbar: Code(s): M51.36 - Other intervertebral disc degeneration, lumbar region Category: Medical (6) Spondylosis of lumbar spine: Code(s): M47.816 - Spondylosis without myelopathy or radiculopathy, lumbar region Category: Medical (7) Chronic pain syndrome: Code(s): G89.4 - Chronic pain syndrome Category: Medical (8) Generalized osteoarthritis: Code(s): M15.9 - Polyosteoarthritis, unspecified Category: Medical Plan: The patient had intercept procedure L3-L4 L5 and S1. She is today 6 days after the procedure. Her PTM device stopped working. She needs to obtain new 1 from the [employer] representatives. Plan Coding Level of Care Code Est Pt Level 3 (65905) Diagnoses Vertebrogenic low back pain M54.51 Lumbar back pain with radiculopathy affecting right lower extremity M54.16 Sacroiliac joint dysfunction of right side M53.3 Sacroiliitis M46.1 Disc degeneration, lumbar M51.36 Spondylosis of lumbar spine M47.816 Chronic pain syndrome G89.4 Generalized osteoarthritis M15.9
[2024-05-08 10:15] VITALS: BP 134/62; PULSE 56; RESP 14; O2SAT 97; BMI 32.0
== END 2024-05-08 10:22 | disposition home or self-care (01) ==
PROVIDERS: PCP Internal Medicine; Visit Provider Anesthesiology
DX: M54.51 Vertebrogenic low back pain (principal); M54.16 Radiculopathy, lumbar region; M53.3 Sacrococcygeal disorders, not elsewhere classified; M46.1 Sacroiliitis, not elsewhere classified; M51.36 Other intervertebral disc degeneration, lumbar region; M47.816 Spondylosis without myelopathy or radiculopathy, lumbar region; G89.4 Chronic pain syndrome; M15.9 Polyosteoarthritis, unspecified
CPT/HCPCS: 99024

== ENCOUNTER → 2024-05-08 09:53 | Outpatient (BNVA) | payer OTHER, SELFPAY | PROVIDERS: PCP Internal Medicine; Visit Provider Anesthesiology | DX: M54.51 Vertebrogenic low back pain (principal); M54.16 Radiculopathy, lumbar region; M53.3 Sacrococcygeal disorders, not elsewhere classified; M46.1 Sacroiliitis, not elsewhere classified; M51.36 Other intervertebral disc degeneration, lumbar region; M47.816 Spondylosis without myelopathy or radiculopathy, lumbar region; M15.9 Polyosteoarthritis, unspecified; G89.4 Chronic pain syndrome | CPT/HCPCS: 99212 ==

== ENCOUNTER 2024-05-15 15:11 | Outpatient (AMB) | payer OTHER, SELFPAY ==
--- NOTE | 2024-05-15 15:25 | A.OFFVIS_ITS ---
Vital Signs 05/15/24 15:46 Height 5 ft 2 in Weight 165 lb 6 oz BMI 30.2 BP 138/72 Blood Pressure Location Lt brachial Position Sitting Respiration 14 Pulse 91 Pulse Source Pulse Oximeter Pulse Oximetry (%) 100 Oxygen Delivery Method Room Air Intake Visit Reasons: Suture Removal Intake Note: Patient comes in for post-op week two. Reports pain 7/10. Allergies Seasonal Allergies Allergy (Mild, Verified 06/11/24 10:41) Unknown HPI Comments Details: Norma is a very pleasant 62 year old female who is today in my office for the staple removal e on the patient's small incisions after intercept procedure. She reports minor pain in the projection of the wounds. The wounds are minimally red, but there is no swelling no pathological discharge sutures competent. . Her PTM device stopped working. She is working with [employer] to replace the device. She went for the MRI of the lumbar spine dictation of which reported as below. On the MRI they were significant Modic type 1 changes in the projection of the L3, L4, L5, and S1 vertebra. She has spinal cord stimulator and pain pump implanted. It could be difficult to perform the procedure intercept however I told her that I am willing to try to do the procedure, I do not know the outcome but I will do my best in the attempt to alleviate her pain. The intrathecal pain pump is working. The new medication concentrations is hydromorphone 2 milligrams/mL and bupivacaine 40 milligrams/mL. Bupivacaine is maximal concentration therefore we can not continue to increase it more than 40 milligrams/mL. [facility] Medical History (Updated 05/27/24 @ 16:27 by Kenny Mancini) Asthma-COPD overlap syndrome Lumbar back pain with radiculopathy affecting right lower extremity Sacroiliac joint dysfunction of right side Sacroiliitis Disc degeneration, lumbar HPV test positive Chronic pain syndrome Acute blood loss anemia Hypertension Osteoarthritis of right knee MENDENHALL (dyspnea on exertion) Presence of dental bridge Sleep apnea Diabetes Overflow stress urinary incontinence in female Urge incontinence Primary osteoarthritis of hands, bilateral Loose right total knee arthroplasty Hx of carpal tunnel syndrome Pulmonary nodules GERD (gastroesophageal reflux disease) Surgical History Hx of tubal ligation H/O knee surgery History of orthopedic surgery History of arthroplasty of right knee History of pubovaginal sling Hx of colonoscopy History of carpal tunnel release of both wrists History of esophagogastroduodenoscopy (EGD) Previous back surgery History of endometrial ablation Hx of section Family History Mother Diabetes Arthritis Brother Cancer Paternal Aunt Breast cancer Social History (Updated 05/27/24 @ 15:43 by ARMIN Franco) Household Members: None Housing: Apartment Are you a primary career representative to a significant other at home: No Do you presently have visiting nurse or other home services: Yes ([employer]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) Alcohol intake: former Year quit: 2017 Comment: pt sleeping Patient Tobacco Use Status: Current everyday Tobacco user Tobacco use type: Cigarette Cigarettes Per Day: 5 Years Smoked: 2014 Second Hand Smoke Exposure: No Substance Use Type: Crack/Cocaine and Marijuana service: No Current occupational status: disabled Current occupation: rt handed Female Reproductive History Menstrual Age of Menarche: 11 Review of Systems Const All systems reviewed & are unremarkable except as noted in HPI and below Physical Exam Vital Signs: Last Vital Signs Pulse 91 05/15/24 15:46 Resp 14 05/15/24 15:46 BP 138/72 05/15/24 15:46 Pulse Ox 100 05/15/24 15:46 Oxygen Delivery Method Room Air 05/15/24 15:46 BMI result Body Mass Index 30.2 Const General: cooperative and well developed Orientation/consciousness: patient oriented x3 Limitations: language barrier HEENT Head: Yes atraumatic Mouth: no other ( thrush) Throat: No postnasal drainage Eyes General: appearance normal, both eyes and all related structures Sclerae: sclerae normal EOM: EOMs intact bilaterally Neck Neck: Yes supple Lymphatic: no lymphadenopathy noted Chest Chest palpation & inspection: normal inspection of the chest Resp Effort & Inspection: normal respiratory effort, able to speak in complete sentences, normal respiratory pattern, no audible wheezes, no cough and decreased respiratory effort Cardio Jugular venous distension: no JVD GI Inspection: Yes normal to inspection Neuro General: patient oriented x3 Extrem General: No clubbing, No cyanosis and Yes edema (symmetric b/l LE pitting edema.) Assessment & Plan Assessment & Plan (1) Vertebrogenic low back pain: Code(s): M54.51 - Vertebrogenic low back pain Category: Medical Plan: (2) Lumbar back pain with radiculopathy affecting right lower extremity: Code(s): M54.16 - Radiculopathy, lumbar region Category: Medical (3) Sacroiliac joint dysfunction of right side: Code(s): M53.3 - Sacrococcygeal disorders, not elsewhere classified Category: Medical (4) Sacroiliitis: Code(s): M46.1 - Sacroiliitis, not elsewhere classified Category: Medical (5) Disc degeneration, lumbar: Code(s): M51.36 - Other intervertebral disc degeneration, lumbar region Category: Medical (6) Spondylosis of lumbar spine: Code(s): M47.816 - Spondylosis without myelopathy or radiculopathy, lumbar region Category: Medical (7) Chronic pain syndrome: Code(s): G89.4 - Chronic pain syndrome Category: Medical (8) Generalized osteoarthritis: Code(s): M15.9 - Polyosteoarthritis, unspecified Category: Medical Plan: The patient had intercept procedure L3-L4 L5 and S1. She is today 13 days after the procedure. Sutures removed. Her PTM device stopped working. She needs to obtain new 1 from the [employer] representatives. Plan Coding Level of Care Code Est Pt Level 3 (18838) Diagnoses Vertebrogenic low back pain M54.51 Lumbar back pain with radiculopathy affecting right lower extremity M54.16 Sacroiliac joint dysfunction of right side M53.3 Sacroiliitis M46.1 Disc degeneration, lumbar M51.36 Spondylosis of lumbar spine M47.816 Chronic pain syndrome G89.4 Generalized osteoarthritis M15.9
[2024-05-15 15:46] VITALS: BP 138/72; PULSE 91; RESP 14; O2SAT 100; BMI 30.2
== END 2024-05-15 15:38 | disposition home or self-care (01) ==
PROVIDERS: PCP Internal Medicine; Visit Provider Anesthesiology
DX: M54.51 Vertebrogenic low back pain (principal); M54.16 Radiculopathy, lumbar region; M53.3 Sacrococcygeal disorders, not elsewhere classified; M46.1 Sacroiliitis, not elsewhere classified; M51.36 Other intervertebral disc degeneration, lumbar region; M47.816 Spondylosis without myelopathy or radiculopathy, lumbar region; G89.4 Chronic pain syndrome; M15.9 Polyosteoarthritis, unspecified
CPT/HCPCS: 99213

== ENCOUNTER → 2024-05-15 15:11 | Outpatient (BNVA) | payer OTHER, SELFPAY | PROVIDERS: PCP Internal Medicine; Visit Provider Anesthesiology | DX: Z48.02 Encounter for removal of sutures (principal); M47.816 Spondylosis without myelopathy or radiculopathy, lumbar region; M54.16 Radiculopathy, lumbar region; M46.1 Sacroiliitis, not elsewhere classified; M54.51 Vertebrogenic low back pain; M51.36 Other intervertebral disc degeneration, lumbar region; G89.4 Chronic pain syndrome; M53.3 Sacrococcygeal disorders, not elsewhere classified; M15.9 Polyosteoarthritis, unspecified; Z96.82 Presence of neurostimulator | CPT/HCPCS: 99212 ==

== ENCOUNTER 2024-05-27 15:35 | Outpatient (AMB) | payer OTHER, SELFPAY ==
[2024-05-27 15:41] VITALS: BMI 30.2
--- NOTE | 2024-05-27 15:41 | MHC.OFFVIS ---
Vital Signs 05/27/24 15:41 Height 5 ft 2 in Weight 165 lb BMI 30.2 Intake Visit Reasons: OV- B/L hand/ nails Intake Note: Norma is a 63 yo right hand dominant female who presents today with a new problem of bilateral hand pain that started years ago. 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 Patient states there is more pain than numbness or tingling. Denies locking of finger. Patient states pain is worse when she tries to cook or grab things. She is currently taking Lyrica and Tylenol for pain. Patient shares she wore braces and had steroid injections in the past. Patient states she [place] [facility]. EMG done 03/15/23. Allergies Seasonal Allergies Allergy (Mild, Verified 05/27/24 15:42) Unknown HPI HPI OV- B/L hand/ nails: Details: Norma is a 63 year old right hand dominant Yoruba speaking woman who presents for a follow-up of her bilateral hand OA pain. She complains of pain in both of her hands, worse with gripping or squeezing activities. She finds cooking very difficult & painful. she says most of her pain is in her right thumb, middle, and ring fingers PIP joints. She is currently managing her pain with Lyrica & Tylenol, with limited relief. She continues to be concerned about the dark pigmentation to her bilateral middle fingers. She has new discoloration to her right index finger nail. She denies being seen by Rheumatology recently. She was last seen by Dr. Beckham on 06/20/22 She has a Hx of previous steroid injections, with relief. her last injections were on 11/29/22 with me. She has a hx of multiple hand injections in the past, done at an outside clinic. She has a Hx of bilateral carpal tunnel release sometime in ~2013 She has a hx of a right middle finger DIP joint level arthrodesis, DOS: 12/28/22 by me, and a right index finger DIP arthrodesis . DOS: 03/15/16 at an outside clinic. She says these D IP joints are doing well. [facility] Medical History (Updated 05/27/24 @ 16:27 by Kenny Mancini) Asthma-COPD overlap syndrome Lumbar back pain with radiculopathy affecting right lower extremity Sacroiliac joint dysfunction of right side Sacroiliitis Disc degeneration, lumbar HPV test positive Chronic pain syndrome Acute blood loss anemia Hypertension Osteoarthritis of right knee MENDENHALL (dyspnea on exertion) Presence of dental bridge Sleep apnea Diabetes Overflow stress urinary incontinence in female Urge incontinence Primary osteoarthritis of hands, bilateral Loose right total knee arthroplasty Hx of carpal tunnel syndrome Pulmonary nodules GERD (gastroesophageal reflux disease) Surgical History Hx of tubal ligation H/O knee surgery History of orthopedic surgery History of arthroplasty of right knee History of pubovaginal sling Hx of colonoscopy History of carpal tunnel release of both wrists History of esophagogastroduodenoscopy (EGD) Previous back surgery History of endometrial ablation Hx of section Family History Mother Diabetes Arthritis Brother Cancer Paternal Aunt Breast cancer Social History (Updated 05/27/24 @ 15:43 by ARMIN Franco) Household Members: None Housing: Apartment Are you a primary health care social worker to a significant other at home: No Do you presently have visiting nurse or other home services: Yes ([employer]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) Alcohol intake: former Year quit: 2017 Comment: pt sleeping Patient Tobacco Use Status: Current everyday Tobacco user Tobacco use type: Cigarette Cigarettes Per Day: 5 Years Smoked: 2014 Second Hand Smoke Exposure: No Substance Use Type: Crack/Cocaine and Marijuana service: No Current occupational status: disabled Current occupation: rt handed Female Reproductive History Menstrual Age of Menarche: 11 Review of Systems Const All systems reviewed & are unremarkable except as noted in HPI and below Physical Exam Vital Signs: BMI result Body Mass Index 30.2 Const General: no acute distress and alert Orientation/consciousness: patient oriented x3 Neuro General: patient oriented x3 Extrem Other: Evaluation of bilateral Upper Extremity: The patient is alert, oriented, and in no acute distress Neuro: Median, Ulnar, Radial nerves motor and sensory intact and sensation is normal to the tips of all digits Vascular: Cap refill brisk ROM: Generalized arthritic changes particularly to the right thumb IP joint and middle and ring finger PIP joints. She says that these joints are quite bothersome with the right thumb IP joint being the most painful for her. She can bring both hands close to a weak fist, with incomplete closure bilaterally. She can then bring them both into full extension. The D IP joints of the right index and middle fingers are completely nontender, and she says significantly better since her surgery She has an approximately 3-4 mm diameter wound over the dorsal aspect of the right middle finger PIP joint. It is clean with no drainage with some mild granulation tissue. She is not sure how she injured it. No evidence of infection today. She has what appears to be a longitudinally oriented area of pigmentation centrally positioned in the left middle finger nail bed Involving a larger area of the nail, just distal to the lunala The right middle finger and right index finger now have longitudinally oriented pigmented areas that measured perhaps 2-3 mm in diameter just distal to the lunula Radiographs: Three views of the right hand from 01/10/2023 were reviewed by me today in clinic and show significant osteoarthritic changes particularly of the right thumb IP joint, multiple D IP joints and the PIP joints of the right middle and ring fingers. The basal joint and the wrist in the MCP joints are relatively spared. No fractures or dislocations. Nerve Conduction Study: IMPRESSION: 1. Mild bilateral median neuropathy across carpal tunnel. 2. Mild right ulnar neuropathy across cubital tunnel. Compa Patricio MD 03/15/2023 Psych Appearance: grossly normal Affect: normal affect Attitude: cooperative Assessment & Plan Assessment & Plan (1) Osteoarthritis of hands, bilateral: Code(s): M19.041 - Primary osteoarthritis, right hand; M19.042 - Primary osteoarthritis, left hand Category: Medical (2) Carpal tunnel syndrome of right wrist: Code(s): G56.01 - Carpal tunnel syndrome, right upper limb Category: Medical (3) Cubital tunnel syndrome on right: Code(s): G56.21 - Lesion of ulnar nerve, right upper limb Category: Medical (4) Carpal tunnel syndrome of left wrist: Code(s): G56.02 - Carpal tunnel syndrome, left upper limb Category: Medical (5) Chronic pain syndrome: Code(s): G89.4 - Chronic pain syndrome Category: Medical (6) Melanonychia: Comment: L MF, R IF & MF Code(s): L60.8 - Other nail disorders Category: Medical Plan Assessment and plan: 1. Bilateral generalized hand OA, R>L In multiple PIP & DIP joints 2. Right thumb IP joint osteoarthritis, this is her chief complaint today. Date of Injections : 11/29/22, 07/03/22, under Fluoroscopy At some point she may benefit from an IP joint arthrodesis. I am recommending that we try another injection, as she seemed to respond well to those injections. She will make an appointment, at the next available slot, for a possible joint injection for her right thumb IP joint, using the Mini-C arm 3. Right middle finger PIP joint osteoarthritis, S/P repeat injection Date of Injections : 11/29/22, 07/03/22, under Fluoroscopy With good improvement of her symptoms following her injection. I educated her about these conditions I discussed the importance of continuing to work on her finger ROM at home She was last seen by Dr. Beckham in Rheumatology on 06/20/22, we will help her to set up a follow up appointment with Dr. Francisco austin in the near future. 4. Right carpal tunnel syndrome, recurrent mild DOS: ~2013 at an outside clinic Not mentioned today in clinic 5. Left carpal tunnel syndrome, recurrent mild DOS: ~2013 at an outside clinic Not mentioned today in clinic 6. Right cubital tunnel syndrome, mild Not mentioned today in clinic 7. Left middle finger Melanonychia Etiology unclear, though the patient says this has been present for ~2 years 8. Right middle finger Melanonychia Measuring ~3mm in width, and longitudinally oriented, in the middle of the nailbed, just distal to the lunula Etiology unclear 9. Right index finger Melanonychia Etiology unclear, and this is new I educated her about these conditions I referred her to [facility] for their assessment We could consider a biopsy of 1 of these areas if dermatology recommends such evaluation. 10. Right middle finger DIP joint osteoarthritis, S/P arthrodesis DOS: 12/28/22 11. Right index finger DIP joint osteoarthritis, S/P arthrodesis DOS: 03/15/16, at an outside clinic Please note that greater than 45 minutes was spent with this patient going over the history, evaluating the patient and radiographs, formulating possible treatment options, discussing them with the patient, and documenting the visit. Scribed for Marielle Zamarripa MD by Kenny Mancini medical billing and coding specialist, on 05/27/24 at 4:10 PM, EST. Orders: Referrals Dermatology Referral L60.8 - Other nail disorders Coding Level of Care Code Est Pt Level 5 (31475) Diagnoses Osteoarthritis of hands, bilateral M19.041; M19.042 Carpal tunnel syndrome of right wrist G56.01 Cubital tunnel syndrome on right G56.21 Carpal tunnel syndrome of left wrist G56.02 Chronic pain syndrome G89.4 Melanonychia L60.8
== END 2024-05-27 16:47 | disposition home or self-care (01) ==
PROVIDERS: PCP Internal Medicine; Visit Provider Orthopaedic Surgery
DX: M19.041 Primary osteoarthritis, right hand (principal); M19.042 Primary osteoarthritis, left hand; G56.03 Carpal tunnel syndrome, bilateral upper limbs; G56.21 Lesion of ulnar nerve, right upper limb; G89.4 Chronic pain syndrome; L60.8 Other nail disorders
CPT/HCPCS: 99214

== ENCOUNTER → 2024-05-27 15:35 | Outpatient (BNVA) | payer OTHER, SELFPAY | PROVIDERS: PCP Internal Medicine; Visit Provider Orthopaedic Surgery | DX: M19.041 Primary osteoarthritis, right hand (principal); M19.042 Primary osteoarthritis, left hand; G56.03 Carpal tunnel syndrome, bilateral upper limbs; G56.21 Lesion of ulnar nerve, right upper limb; G89.4 Chronic pain syndrome; L60.8 Other nail disorders | CPT/HCPCS: 99212 ==

== ENCOUNTER 2024-06-10 12:56 | Outpatient (AMB) | payer OTHER, SELFPAY ==
--- NOTE | 2024-06-10 13:18 | A.OFFVIS_ITS ---
Vital Signs 06/10/24 13:38 Height 5 ft 2 in Weight 165 lb BMI 30.2 Intake Visit Reasons: Inj-LT thumb IP joint w/ c-arm, last inj 11/29/22 Intake Note: Norma is a 63 yo right hand dominant female who presents today for a left thumb IP joint injection. Patient had an injection done 11/29/22 which she found helpful and would like to repeat it today. Allergies Seasonal Allergies Allergy (Mild, Verified 06/10/24 13:39) Unknown HPI HPI Inj-LT thumb IP joint w/ c-arm, last inj 11/29/22: Details: Norma is a 63 year old right hand dominant Upper Sorbian speaking woman who presents for a follow-up of her right thumb OA. She has a hx of injections to her right thumb IP joint, her most recent was on 11/29/22 She complains of pain in both of her hands, worse with gripping or squeezing activities. She finds cooking very difficult & painful. she says most of her pain is in her right thumb, and middle finger IP/PIP joints. She is currently managing her pain with Lyrica & Tylenol, with limited relief. She has a Hx of previous steroid injections, with relief. her last injections were on 11/29/22 with me. She has a hx of multiple hand injections in the past, done at an outside clinic. She has a Hx of bilateral carpal tunnel release sometime in ~2013 She has a hx of a right middle finger DIP joint level arthrodesis, DOS: 12/28/22 by me, and a right index finger DIP arthrodesis . DOS: 03/15/16 at an outside clinic. She says these DIP joints are doing well. [facility] Medical History (Updated 05/27/24 @ 16:27 by Kenny Mancini) Asthma-COPD overlap syndrome Lumbar back pain with radiculopathy affecting right lower extremity Sacroiliac joint dysfunction of right side Sacroiliitis Disc degeneration, lumbar HPV test positive Chronic pain syndrome Acute blood loss anemia Hypertension Osteoarthritis of right knee MENDENHALL (dyspnea on exertion) Presence of dental bridge Sleep apnea Diabetes Overflow stress urinary incontinence in female Urge incontinence Primary osteoarthritis of hands, bilateral Loose right total knee arthroplasty Hx of carpal tunnel syndrome Pulmonary nodules GERD (gastroesophageal reflux disease) Surgical History Hx of tubal ligation H/O knee surgery History of orthopedic surgery History of arthroplasty of right knee History of pubovaginal sling Hx of colonoscopy History of carpal tunnel release of both wrists History of esophagogastroduodenoscopy (EGD) Previous back surgery History of endometrial ablation Hx of section Family History Mother Diabetes Arthritis Brother Cancer Paternal Aunt Breast cancer Social History (Updated 05/27/24 @ 15:43 by ARMIN Franco) Household Members: None Housing: Apartment Are you a primary home health care provider to a significant other at home: No Do you presently have visiting nurse or other home services: Yes ([employer]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) Alcohol intake: former Year quit: 2017 Comment: pt sleeping Patient Tobacco Use Status: Current everyday Tobacco user Tobacco use type: Cigarette Cigarettes Per Day: 5 Years Smoked: 2014 Second Hand Smoke Exposure: No Substance Use Type: Crack/Cocaine and Marijuana service: No Current occupational status: disabled Current occupation: rt handed Female Reproductive History Menstrual Age of Menarche: 11 Physical Exam Vital Signs: BMI result Body Mass Index 30.2 Const General: no acute distress and alert Orientation/consciousness: patient oriented x3 Neuro General: patient oriented x3 Extrem Other: Evaluation of Right Upper Extremity: The patient is alert, oriented, and in no acute distress Neuro: Median, Ulnar, Radial nerves motor and sensory intact and sensation is normal to the tips of all digits Vascular: Cap refill brisk ROM: Generalized arthritic changes particularly to the right thumb IP joint and middle and ring finger PIP joints. She says that these joints are quite bothersome with the right thumb IP joint being the most painful for her. She can bring both hands close to a weak fist, with incomplete closure bilaterally. She can then bring them both into full extension. The D IP joints of the right index and middle fingers are completely nontender, and she says significantly better since her surgery She has an ~3-4 mm diameter healed scar over the dorsal aspect of the right middle finger PIP joint. No evidence of infection today. The right middle finger and right index finger now have longitudinally oriented pigmented areas that measured perhaps 2-3 mm in diameter just distal to the lunula Radiographs: Three views of the right hand from 01/10/2023 were reviewed by me today in clinic and show significant osteoarthritic changes particularly of the right thumb IP joint, multiple D IP joints and the PIP joints of the right middl e and ring fingers. The basal joint and the wrist in the MCP joints are relatively spared. No fractures or dislocations. Nerve Conduction Study: IMPRESSION: 1. Mild bilateral median neuropathy across carpal tunnel. 2. Mild right ulnar neuropathy across cubital tunnel. Compa Patricio MD 03/15/2023 Psych Appearance: grossly normal Affect: normal affect Attitude: cooperative Office Procedures Fracture Care Details: No fracture, injection x 2 with 83304 for using the FluoroScan for needle guidance x2 Fracture Billing Code: Fracture Billing Code Assessment & Plan Assessment & Plan (1) Osteoarthritis of fingers of both hands: Code(s): M19.041 - Primary osteoarthritis, right hand; M19.042 - Primary osteoarthritis, left hand Category: Medical (2) Osteoarthritis of hands, bilateral: Code(s): M19.041 - Primary osteoarthritis, right hand; M19.042 - Primary osteoarthritis, left hand Category: Medical (3) Chronic pain syndrome: Code(s): G89.4 - Chronic pain syndrome Category: Medical Plan Assessment and plan: 1. Right thumb IP joint osteoarthritis, this is her chief complaint today. Date of Injections : 06/10/24, 11/29/22, 07/03/22, under Fluoroscopy 2. Right middle finger PIP joint osteoarthritis, S/P repeat injection Date of Injections : 06/10/24, 11/29/22, 07/03/22, under Fluoroscopy At some point she may benefit from a right thumb IP joint arthrodesis. I am recommending that we try another injection, as she seemed to respond well to those injections. Injection #1: The risks and benefits of a steroid injection including but not limited to risk of damage to blood vessels, nerve, tendon, infection, skin bleaching, persistent or worsening pain, and failure to improve symptoms were discussed with the patient and they wish to proceed with the steroid injection. Once consent was obtained the skin over the dorsum of the right thumb IP joint was sterilely prepped. The joint was then injected with a combination of 1 mL of (40 mg/ml} Depo-Medrol and 1% plain Lidocaine, using the mini C-arm for needle guidance. The patient appears to have tolerated the procedure well and with no complications. She had good early relief before leaving clinic today. She knows that they may not have another steroid injection into this joint for least 4 months Injection #2: The risks and benefits of a steroid injection including but not limited to risk of damage to blood vessels, nerve, tendon, infection, skin bleaching, persistent or worsening pain, and failure to improve symptoms were discussed with the patient and they wish to proceed with the steroid injection. Once consent was obtained the skin over the dorsum of the right middle finger PIP joint was sterilely prepped. The joint was then injected with a combination of 1 mL of (40 mg/ml} Depo-Medrol and 1% plain Lidocaine, using the mini C-arm for needle guidance. The patient appears to have tolerated the procedure well and with no complications. She had good early relief before leaving clinic today. She knows that they may not have another steroid injection into this joint for least 4 months 3. Bilateral generalized hand OA, R>L In multiple PIP & DIP joints I educated her about these conditions I discussed the importance of continuing to work on her finger ROM at home She was last seen by Dr. Beckham in Rheumatology on 06/20/22, we will help her to set up a follow up appointment with Dr. Beckham in the near future. 4. Right carpal tunnel syndrome, recurrent mild DOS: ~2013 at an outside clinic Not mentioned today in clinic 5. Left carpal tunnel syndrome, recurrent mild DOS: ~2014 at an outside clinic Not mentioned today in clinic 6. Right cubital tunnel syndrome, mild Not mentioned today in clinic 7. Left middle finger Melanonychia Etiology unclear, though the patient says this has been present for ~2 years 8. Right middle finger Melanonychia Measuring ~3mm in width, and longitudinally oriented, in the middle of the nailbed, just distal to the lunula Etiology unclear 9. Right index finger Melanonychia Etiology unclear, and this is new I educated her about these conditions I referred her to [facility] for their assessment We could consider a biopsy of 1 of these areas if dermatology recommends such evaluation. 10. Right middle finger DIP joint osteoarthritis, S/P arthrodesis DOS: 12/28/22 11. Right index finger DIP joint osteoarthritis, S/P arthrodesis DOS: 03/15/16, at an outside clinic Scribed for Marielle Zamarripa MD by Kenny Mancini, medical accounts receivable specialist, on 06/10/24 at 2:15 PM, EST. Orders: Orders FL guided needle placement Today M19.041 - Primary osteoarthritis, right hand, M19.042 - Primary osteoarthritis, left hand Coding Level of Care Code Est Pt Level 3 (49943) Diagnoses Osteoarthritis of fingers of both hands M19.041; M19.042 Osteoarthritis of hands, bilateral M19.041; M19.042 Chronic pain syndrome G89.4 CPT Codes Fracture Care - Fracture Billing Code: Fracture Billing Code ([id number])
[2024-06-10 13:38] VITALS: BMI 30.2
== END 2024-06-10 14:42 | disposition home or self-care (01) ==
PROVIDERS: PCP Internal Medicine; Visit Provider Orthopaedic Surgery
DX: M19.041 Primary osteoarthritis, right hand (principal); M19.042 Primary osteoarthritis, left hand; G89.4 Chronic pain syndrome
CPT/HCPCS: 20600; 77002; 99213

== ENCOUNTER 2024-06-10 12:56 | Outpatient (REF) | payer OTHER, SELFPAY ==
--- NOTE | ~2024-06-10 | FL_ITS ---
EXAMINATION: XR FLUOROSCOPY WITH IMAGES CLINICAL INFORMATION: Right thumb interphalangeal joint steroid injection COMPARISON: Right hand plain films 01/30/2023. TECHNIQUE: Fluoroscopy provided to: Dr. Zamarripa Fluoroscopy time: 22.6 seconds DAP: 6705.3 Gycm2 Images: 3 FINDINGS: First image of the thumb during interphalangeal joint injection with needle within the joint. Second image demonstrates needle within the PIP joint of the third digit. Third image demonstrates fixation pins within the PIP joint of the fourth digit. FL/FL guided needle placement IMPRESSION: Fluoroscopic guidance. Please refer to the full operative report for details. Electronically signed by: Levar Mckeon MD 07/02/2024 04:56 PM EDT
== END 2024-06-10 12:57 | disposition home or self-care (01) ==
LOC: HO.HOSX 12:56
PROVIDERS: PCP Internal Medicine; Visit Provider Orthopaedic Surgery
DX: M19.041 Primary osteoarthritis, right hand (principal); M19.042 Primary osteoarthritis, left hand; G89.4 Chronic pain syndrome
CPT/HCPCS: 20600; 77002; 99212; J1010

== ENCOUNTER → 2024-06-10 13:36 | Outpatient (BNV) | payer OTHER, SELFPAY | PROVIDERS: PCP Internal Medicine; Visit Provider Radiology Diagnostic Radiology | DX: M19.041 Primary osteoarthritis, right hand (principal) | CPT/HCPCS: 77002 ==

== ENCOUNTER 2024-06-11 10:21 | Outpatient (AMB) | payer OTHER, SELFPAY ==
--- NOTE | 2024-06-11 10:27 | A.OFFVIS_ITS ---
Vital Signs 06/11/24 10:40 Height 5 ft 2 in Weight 172 lb BMI 31.5 BP 160/68 H Blood Pressure Location Lt brachial Position Sitting Respiration 14 Pulse 77 Pulse Source Pulse Oximeter Pulse Oximetry (%) 96 Oxygen Delivery Method Room Air Intake Visit Reasons: Pain pump refill Allergies Seasonal Allergies Allergy (Mild, Verified 08/04/24 13:36) Unknown HPI HPI Pain pump refill: Details: Patient presents for scheduled procedure. Denies any recent cough, cold, infe ction, fever or other significant changes in medical history since last office visit. [facility] Medical History Asthma-COPD overlap syndrome Lumbar back pain with radiculopathy affecting right lower extremity Sacroiliac joint dysfunction of right side Sacroiliitis Disc degeneration, lumbar HPV test positive Chronic pain syndrome Acute blood loss anemia Hypertension Osteoarthritis of right knee MENDENHALL (dyspnea on exertion) Presence of dental bridge Sleep apnea Diabetes Overflow stress urinary incontinence in female Urge incontinence Primary osteoarthritis of hands, bilateral Loose right total knee arthroplasty Hx of carpal tunnel syndrome Pulmonary nodules GERD (gastroesophageal reflux disease) Surgical History Hx of tubal ligation H/O knee surgery History of orthopedic surgery History of arthroplasty of right knee History of pubovaginal sling Hx of colonoscopy History of carpal tunnel release of both wrists History of esophagogastroduodenoscopy (EGD) Previous back surgery History of endometrial ablation Hx of section Family History Mother Diabetes Arthritis Brother Cancer Paternal Aunt Breast cancer Social History Household Members: None Housing: Apartment Are you a primary acute care nurse to a significant other at home: No Do you presently have visiting nurse or other home services: Yes ([employer]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) Alcohol intake: former Year quit: 2017 Comment: pt sleeping Patient Tobacco Use Status: Current everyday Tobacco user Tobacco use type: Cigarette Cigarettes Per Day: 5 Years Smoked: 2014 Second Hand Smoke Exposure: No Substance Use Type: Crack/Cocaine and Marijuana service: No Current occupational status: disabled Current occupation: rt handed Female Reproductive History Menstrual Age of Menarche: 11 Physical Exam Vital Signs: Last Vital Signs Pulse 77 06/11/24 10:40 Resp 14 06/11/24 10:40 BP 160/68 H 06/11/24 10:40 Pulse Ox 96 06/11/24 10:40 Oxygen Delivery Method Room Air 06/11/24 10:40 BMI result Body Mass Index 31.5 Office Procedures Details: Intra-thecal Pump Refill The name and date of were verified, and informed consent was obtained for the procedure. The pump was interrogated, and the residual amount of fluid was found to be 6 mL. Patient was positioned on the bed and the area of the intrathecal pump was prepped with chloraprep. The fenestrated drape was sterilely applied over the area of the pump. Sterile gloves were worn and the aspiration system was assembled containing 2 22-gauge noncoring needle; the needle was connected to extension tubing which was connected to the 20-cc sterile syringe. The extension tubing was clamped. The pain pump was palpated under the skin. The needle was inserted through the skin and the central plug of the pain pump and fluid was aspirated.?6 mL of clear fluid were aspirated. After that, a new batch of medication was obtained which contained 100 mcg per mL/bupivacaine 2mg/ml. The admixture was premixed in a 20cc syringe by [facility] compounding pharmacy. The s yringe was connected to the bacterial filter, and then connected to the extension tubing. After that, the medication in the syringe was slowly instilled into the pump with aspirations at 15 and 5cc fajardo. The pump was programmed and updated per the latest parameters. The details of this program are available in the pump log that was saved and uploaded to the EMR. 63178 - Refill Procedure code (CPT) selection complete Assessment & Plan Assessment & Plan (1) Chronic pain syndrome: Code(s): G89.4 - Chronic pain syndrome Category: Medical Plan Patient is status post pain pump refill. Patient tolerated procedure well and was discharged home in stable condition with discharge instructions. All questions were answered. Coding Level of Care Code Procedure Only Diagnoses Chronic pain syndrome G89.4 CPT Codes Intraethecal Drug Delivery System - CPT: 79805 - Refill ([id number])
[2024-06-11 10:40] VITALS: BP 160/68; PULSE 77; RESP 14; O2SAT 96; BMI 31.5
== END 2024-06-11 11:30 | disposition home or self-care (01) ==
PROVIDERS: PCP Internal Medicine; Visit Provider Internal Medicine
DX: G89.4 Chronic pain syndrome (principal); Z45.1 Encounter for adjustment and management of infusion pump
CPT/HCPCS: 62370

== ENCOUNTER → 2024-06-11 10:21 | Outpatient (BNVA) | payer OTHER, SELFPAY | PROVIDERS: PCP Internal Medicine; Visit Provider Internal Medicine | DX: G89.4 Chronic pain syndrome (principal); Z45.1 Encounter for adjustment and management of infusion pump | CPT/HCPCS: 62370 ==

== ENCOUNTER 2024-07-04 15:04 | Outpatient (AMB) | payer OTHER, SELFPAY ==
[2024-07-04 15:12] VITALS: BP 120/54; PULSE 70; O2SAT 98; BMI 31.8
--- NOTE | 2024-07-04 15:12 | HO.NEPHOV_ITS ---
Vital Signs 07/04/24 15:12 Height 5 ft 2 in Weight 174 lb BMI 31.8 BP 120/54 L Blood Pressure Location Rt brachial Position Sitting Pulse 70 Pulse Source Pulse Oximeter Pulse Oximetry (%) 98 Oxygen Delivery Method Room Air Intake Visit Reasons: CKD/ 4 MO FU/ Conf Textile Science Technician Required: Yes Textile Science Technician Name: tyler [id number] Accompanied by: Self / Same As Patient Allergies Seasonal Allergies Allergy (Mild, Verified 07/04/24 15:16) Unknown Medication List - Last Reconciled 07/04/24 by Kalen Negrete MD acetaminophen ER 650 mg PO DAILY albuterol sulfate 90 mcg/actuation (Ventolin HFA) 2 puffs PO Q4H PRN arformoterol (Brovana) 2 mL inhalation BID 30 days ascorbic acid (vitamin C) 250 mg PO DAILY atenolol 50 mg PO DAILY budesonide 0.5 mg (2 mL) inhalation BID 30 days cetirizine 10 mg PO DAILY chlorthalidone 50 mg PO DAILY cholecalciferol (vitamin D3) 50 mcg PO DAILY clonazepam 0.5 mg PO DAILY doxepin 50 mg PO BEDTIME escitalopram oxalate 10 mg PO DAILY ferrous gluconate 240 mg PO Q OTHER DAY fluticasone propionate 50 mcg/actuation 1 spray intranasal BID hydrocortisone 2.5% 1 appl [place] BID-QID PRN 30 days ipratropium-albuterol 0.5 mg-3 mg(2.5 mg base)/3 mL 3 mL inhalation Q4-6H PRN 30 days loperamide 2 mg PO Q6H PRN losartan 100 mg PO DAILY lubiprostone (Amitiza) 16 mcg (2 x 8 mcg) PO BID 30 days metformin 500 mg PO BID methylprednisolone (Medrol (João)) 4 mg PO DAILY 6 days mupirocin 2% 1 appl topical TID naloxone 4 mg/actuation 4 mg intranasal Q2M PRN 1 day omeprazole 40 mg PO BID 30 days pregabalin 150 mg PO BID 30 days simvastatin 40 mg PO BEDTIME zolpidem 10 mg PO BEDTIME PRN HPI Comments Details: 63-year-old woman with a history of obesity and hypertension has been referred for evaluation of hypertension and CKD. She was on meloxicam in the past which has been discontinued. She is being managed by pain management. As for the blood pressure she is on losartan 100 mg and chlorthalidone 50 mg a day. She is compliant with her medications. Today she is complaining of low back pain. No urinary symptoms No polyuria polydipsia. No shortness of breath. 03/11/24 Doing well today Interpretor service was used [facility] Medical History (Updated 07/04/24 @ 15:25 by Kalen Negrete MD) Asthma-COPD overlap syndrome Lumbar back pain with radiculopathy affecting right lower extremity Sacroiliac joint dysfunction of right side Sacroiliitis Disc degeneration, lumbar HPV test positive Chronic pain syndrome Acute blood loss anemia Hypertension Osteoarthritis of right knee MENDENHALL (dyspnea on exertion) Presence of dental bridge Sleep apnea Diabetes Overflow stress urinary incontinence in female Urge incontinence Primary osteoarthritis of hands, bilateral Loose right total knee arthroplasty Hx of carpal tunnel syndrome Pulmonary nodules GERD (gastroesophageal reflux disease) Surgical History Hx of tubal ligation H/O knee surgery History of orthopedic surgery History of arthroplasty of right knee History of pubovaginal sling Hx of colonoscopy History of carpal tunnel release of both wrists History of esophagogastroduodenoscopy (EGD) Previous back surgery History of endometrial ablation Hx of section Family History Mother Diabetes Arthritis Brother Cancer Paternal Aunt Breast cancer Social History Household Members: None Housing: Apartment Are you a primary healthcare interpreter to a significant other at home: No Do you presently have visiting nurse or other home services: Yes ([employer]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) Alcohol intake: former Year quit: 2017 Comment: pt sleeping Patient Tobacco Use Status: Current everyday Tobacco user Tobacco use type: Cigarette Cigarettes Per Day: 5 Years Smoked: 2014 Second Hand Smoke Exposure: No Substance Use Type: Crack/Cocaine and Marijuana service: No Current occupational status: disabled Current occupation: rt handed Female Reproductive History Menstrual Age of Menarche: 11 Physical Exam Vital Signs: Last Vital Signs Pulse 70 07/04/24 15:12 BP 120/54 L 07/04/24 15:12 Pulse Ox 98 07/04/24 15:12 Oxygen Delivery Method Room Air 07/04/24 15:12 BMI result Body Mass Index 31.8 Results Reviewed Results Reviewed: No proteinuria Nephrology Results: No Data to Display Assessment & Plan Assessment & Plan (1) CKD (chronic kidney disease): Code(s): N18.9 - Chronic kidney disease, unspecified Category: Medical (2) Proteinuria: Code(s): R80.9 - Proteinuria, unspecified Category: Medical (3) Hypertension: Code(s): I10 - Essential (primary) hypertension Category: Medical Plan 63-year-old man with chronic kidney disease and proteinuria in a setting of hypertension obesity and diabetes mellitus. Recent urine microalbumin creatinine ratio was 333. She probably has underlying diabetic hypertensive kidney disease. She might have a component of acute kidney injury from hypoperfusion. She is on adequate dose of losartan with a high dose of chlorthalidone and blood pressure was rather low which could be contributing to hypoperfusion. Keep Chlorthalidone due to edema Needs to stay on low salt diet Renal function is better She should avoid NSAIDs and other nephrotoxic Maintain adequate hydration. Orders: Orders Basic Metabolic Panel 1 Year I10 - Essential (primary) hypertension Total Protein Urine Random 1 Year I10 - Essential (primary) hypertension Creatinine Urine 1 Year I10 - Essential (primary) hypertension UA and rflx microscopic 1 Year I10 - Essential (primary) hypertension Coding Level of Care Code Est Pt Level 4 (14024) Diagnoses CKD (chronic kidney disease) N18.9 Proteinuria R80.9 Hypertension I10
== END 2024-07-04 15:26 | disposition home or self-care (01) ==
PROVIDERS: PCP Internal Medicine; Visit Provider Internal Medicine Hypertension Specialist
DX: I12.9 Hypertensive chronic kidney disease with stage 1 through stage 4 chronic kidney disease, or unspecified chronic kidney disease (principal); E11.22 Type 2 diabetes mellitus with diabetic chronic kidney disease; N18.9 Chronic kidney disease, unspecified; R80.9 Proteinuria, unspecified
CPT/HCPCS: 99214

== ENCOUNTER → 2024-07-04 15:04 | Outpatient (BNVA) | payer OTHER, SELFPAY | PROVIDERS: PCP Internal Medicine; Visit Provider Internal Medicine Hypertension Specialist | DX: I12.9 Hypertensive chronic kidney disease with stage 1 through stage 4 chronic kidney disease, or unspecified chronic kidney disease (principal); N18.9 Chronic kidney disease, unspecified; R80.9 Proteinuria, unspecified | CPT/HCPCS: 99212 ==

== ENCOUNTER 2024-07-30 14:16 | Outpatient (AMB) | payer OTHER, SELFPAY ==
[2024-07-30 14:39] VITALS: BP 132/80; BMI 31.4
--- NOTE | 2024-07-30 14:39 | A.OFFVIS_ITS ---
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 Complaining of urinary frequency. Last Pap/HPV was ascus/HPV E6 E7 positive, colpo/biopsy/ECC were negative Last Mammogram was BI-RADS 1 in 06/30 Last colonoscopy was 03/30, the recommendation was to repeat in 10 years No previous DEXA scan PFSH Medical History Asthma-COPD overlap syndrome Lumbar back pain with radiculopathy affecting right lower extremity Sacroiliac joint dysfunction of right side Sacroiliitis Disc degeneration, lumbar HPV test positive Chronic pain syndrome Acute blood loss anemia Hypertension Osteoarthritis of right knee MENDENHALL (dyspnea on exertion) Presence of dental bridge Sleep apnea Diabetes Overflow stress urinary incontinence in female Urge incontinence Primary osteoarthritis of hands, bilateral Loose right total knee arthroplasty Hx of carpal tunnel syndrome Pulmonary nodules GERD (gastroesophageal reflux disease) Surgical History Hx of tubal ligation H/O knee surgery History of orthopedic surgery History of arthroplasty of right knee History of pubovaginal sling Hx of colonoscopy History of carpal tunnel release of both wrists History of esophagogastroduodenoscopy (EGD) Previous back surgery History of endometrial ablation Hx of section Family History Mother Diabetes Arthritis Brother Cancer Paternal Aunt Breast cancer Social History Household Members: None Housing: Apartment Are you a primary caregiver assisted living to a significant other at home: No Do you presently have visiting nurse or other home services: Yes (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) Alcohol intake: former Year quit: 2017 Comment: pt sleeping Patient Tobacco Use Status: Current everyday Tobacco user Tobacco use type: Cigarette Cigarettes Per Day: 5 Years Smoked: 2014 Second Hand Smoke Exposure: No Substance Use Type: Crack/Cocaine and Marijuana service: No Current occupational status: disabled Current occupation: rt handed Female Reproductive History Menstrual Age of Menarche: 11 Menopause type: natural Date of last pap smear: 04/24/23 History of abnormal pap smear: Yes (HPV +) Date of Mammogram: 06/27/23 Review of Systems Const All systems reviewed & are unremarkable except as noted in HPI and below Card Reports as per HPI Resp Reports as per HPI GI Reports as per HPI and Reports no additional complaints Reports as per HPI Physical Exam Vital Signs: Last Vital Signs BP 132/80 07/30/24 14:39 BMI result Body Mass Index 31.4 Const General: cooperative, healthy appearing and comfortable Chest Chest palpation & inspection: normal inspection of the chest and normal palpation of entire chest wall Breast/axilla inspection: normal inspection of the breasts and normal inspection of the axillae Breast/axilla palpation: normal palpation of the breasts, normal palpation of the axillae and no axillary lymphadenopathy Resp Effort & Inspection: normal respiratory effort Auscultation: clear to auscultation bilaterally Percussion: percussion normal Cardio Palpation: normal PMI Rate: regular rate Rhythm: regular rhythm Heart sounds: no murmurs and no rubs Peripheral pulses: Peripheral pulses 2+ throughout GI Inspection: Yes normal to inspection Palpation (GI): Soft to palpation, nontender, no guarding, not rigid and No hepatosplenomegaly present Percussion: Yes normal to percussion Auscultation: normal bowel sounds Rectal Exam - Female: deferred General: Yes bladder normal to palpation External Female Exam: No lesion Speculum Exam - Vagina: normal appearance of the vagina, normal palpation, normal vaginal discharge and not erythematous Speculum Exam - Cervix: normal appearance of the cervix and normal palpation Bimanual exam- vagina & uterus: normal bimanual exam, normal palpation, uterine size normal, bladder normal to palpation, consistency normal and normal palpation Bimanual Exam- Adnexa, other: normal adnexae, no masses and no tenderness Assessment & Plan Assessment & Plan (1) Well woman exam: Comment: COLEMAN 1 in 2020, followed by negative Pap/HPV positive in 2021, no showed for colpo biopsy Ascus/HPV positive 04/29, colpo/biopsy negative Code(s): Z01.419 - Encounter for gynecological examination (general) (routine) without abnormal findings Category: Medical Plan: Co testing done Counseled the patient about the recommended dietary allowance of 1200 mg of Calcium & 800 IU of vitamin D. Mammogram ordered. Will order DEXA scan . The patient was instructed to perform monthly self-breast exams and to schedule a 2 week DEXA scan follow-up appointment and an annual exam in a year; All questions answered and the patient verbalized understanding. (2) Urinary frequency: Code(s): R35.0 - Frequency of micturition Category: Medical Plan: Urine dip in the office was negative for blood positive for leukocyte, will send urine for culture and treat accordingly Orders: Orders PAP + HPV E6/E7 rfx 18/45 Today R30.0 - Dysuria, R87.610 - Atypical squamous cells of undetermined significance on cytologic smear of cervix (ASC-US), R87.810 - Cervical high risk human papillomavirus (HPV) DNA test positive, Z01.419 - Encounter for gynecological examination (general) (routine) without abnormal findings Urine Culture Today R30.0 - Dysuria, R87.610 - Atypical squamous cells of undetermined significance on cytologic smear of cervix (ASC-US), R87.810 - Cervical high risk human papillomavirus (HPV) DNA test positive, Z01.419 - Enc ounter for gynecological examination (general) (routine) without abnormal findings XR DEXA axial skeleton Today Z78.0 - Asymptomatic menopausal state MM tomosynthesis screening BI Today Z12.31 - Encounter for screening mammogram for malignant neoplasm of breast Coding Level of Care Code Est Pt Prev Care >65y(84806) Diagnoses Well woman exam Z01.419 Urinary frequency R35.0
== END 2024-07-30 15:11 | disposition home or self-care (01) ==
LOC: HO.HWS 14:16
PROVIDERS: PCP Internal Medicine; Visit Provider Obstetrics & Gynecology
DX: Z01.419 Encounter for gynecological examination (general) (routine) without abnormal findings (principal); R35.0 Frequency of micturition
CPT/HCPCS: 99397

== ENCOUNTER 2024-07-30 14:16 | Outpatient (REF) | payer OTHER, SELFPAY ==
[2024-08-04 14:47] LABS: HPV mRNA E6/E7 Not Detected (Not Detected)
== END 2024-07-30 14:17 | disposition home or self-care (01) ==
LOC: HO.LNP 14:16
PROVIDERS: PCP Internal Medicine; Visit Provider Obstetrics & Gynecology
DX: Z01.419 Encounter for gynecological examination (general) (routine) without abnormal findings (principal); R30.0 Dysuria; R87.610 Atypical squamous cells of undetermined significance on cytologic smear of cervix (ASC-US); R87.810 Cervical high risk human papillomavirus (HPV) DNA test positive; R35.0 Frequency of micturition; Z78.0 Asymptomatic menopausal state
CPT/HCPCS: 87086; 87624; 88175; 99397

== ENCOUNTER 2024-08-04 13:01 | Outpatient (AMB) | payer OTHER, SELFPAY ==
--- NOTE | 2024-08-04 13:02 | A.OFFVIS_ITS ---
Vital Signs 08/04/24 13:34 Height 5 ft 2 in Weight 173 lb 4 oz BMI 31.7 BP 139/80 Blood Pressure Location Lt brachial Position Sitting Respiration 16 Pulse 55 Pulse Source Pulse Oximeter Pulse Oximetry (%) 96 Oxygen Delivery Method Room Air Intake Visit Reasons: ITDD Pump Refill Intake Note: Patient comes for intrathecal medication refill. Reports pain 05/17. Allergies Seasonal Allergies Allergy (Mild, Verified 08/04/24 13:36) Unknown HPI Comments Details: Norma is here for replacement of the medication in the pain pump. The concentration of the medication now is hydromorphone 2 milligrams/mL and bupivacaine 40 milligrams/mL. She reports sensation of numbness in bilateral lower extremities when she applies the PTM dose.. I decided to next time increase the concentration of hydromorphone to 4 mg 4 mL this will a decrease relative concentration of the bupivacaine and effectively decrease the bupivacaine dose delivery attend the same time we will give me opportunity to for the escalate her opioid doses. She complains on severe intractable pain unamenable by the continuous rate and helping very little with PTM application. [facility] Medical History Asthma-COPD overlap syndrome Lumbar back pain with radiculopathy affecting right lower extremity Sacroiliac joint dysfunction of right side Sacroiliitis Disc degeneration, lumbar HPV test positive Chronic pain syndrome Acute blood loss anemia Hypertension Osteoarthritis of right knee MENDENHALL (dyspnea on exertion) Presence of dental bridge Sleep apnea Diabetes Overflow stress urinary incontinence in female Urge incontinence Primary osteoarthritis of hands, bilateral Loose right total knee arthroplasty Hx of carpal tunnel syndrome Pulmonary nodules GERD (gastroesophageal reflux disease) Surgical History Hx of tubal ligation H/O knee surgery History of orthopedic surgery History of arthroplasty of right knee History of pubovaginal sling Hx of colonoscopy History of carpal tunnel release of both wrists History of esophagogastroduodenoscopy (EGD) Previous back surgery History of endometrial ablation Hx of section Family History Mother Diabetes Arthritis Brother Cancer Paternal Aunt Breast cancer Social History Household Members: None Housing: Apartment Are you a primary health care facility administrator to a significant other at home: No Do you presently have visiting nurse or other home services: Yes (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) Alcohol intake: former Year quit: 2017 Comment: pt sleeping Patient Tobacco Use Status: Current everyday Tobacco user Tobacco use type: Cigarette Cigarettes Per Day: 5 Years Smoked: 2014 Second Hand Smoke Exposure: No Substance Use Type: Crack/Cocaine and Marijuana service: No Current occupational status: disabled Current occupation: rt handed Female Reproductive History Menstrual Age of Menarche: 11 Review of Systems Const All systems reviewed & are unremarkable except as noted in HPI and below Physical Exam Vital Signs: Last Vital Signs Pulse 55 08/04/24 13:34 Resp 16 08/04/24 13:34 BP 139/80 08/04/24 13:34 Pulse Ox 96 08/04/24 13:34 Oxygen Delivery Method Room Air 08/04/24 13:34 BMI result Body Mass Index 31.7 Const General: cooperative and well developed Orientation/consciousness: patient oriented x3 Limitations: language barrier HEENT Head: Yes atraumatic Mouth: no other ( thrush) Throat: No postnasal drainage Eyes General: appearance normal, both eyes and all related structures Sclerae: sclerae normal EOM: EOMs intact bilaterally Neck Neck: Yes supple Lymphatic: no lymphadenopathy noted Chest Chest palpation & inspection: normal inspection of the chest Resp Effort & Inspection: normal respiratory effort, able to speak in complete sentences, normal respiratory pattern, no audible wheezes, no cough and decreased respiratory effort Cardio Jugular venous distension: no JVD GI Inspection: Yes normal to inspection Neuro General: patient oriented x3 Extrem General: No clubbing, No cyanosis and Yes edema (symmetric b/l LE pitting edema.) Assessment & Plan Assessment & Plan (1) Vertebrogenic low back pain: Code(s): M54.51 - Vertebrogenic low back pain Category: Medical Plan: (2) Lumbar back pain with radiculopathy affecting right lower extremity: Code(s): M54.16 - Radiculopathy, lumbar region Category: Medical (3) Sacroiliac joint dysfunction of right side: Code(s): M53.3 - Sacrococcygeal disorders, not elsewhere classified Category: Medical (4) Sacroiliitis: Code(s): M46.1 - Sacroiliitis, not elsewhere classified Category: Medical (5) Disc degeneration, lumbar: Code(s): M51.36 - Other intervertebral disc degeneration, lumbar region Category: Medical (6) Spondylosis of lumbar spine: Code(s): M47.816 - Spondylosis without myelopathy or radiculopathy, lumbar region Category: Medical (7) Chronic pain syndrome: Code(s): G89.4 - Chronic pain syndrome Category: Medical Plan: Intrathecal pump refill. THE PATIENT CAME TODAY IN THE office FOR THE CHANGE OF THE MEDICATION IN her PAIN PUMP. The name and date of were verified and informed consent was obtained for the procedure. ?The pump was interrogated and the residual amount of fluid was found to be 3.8 mL. SHE WAS POSITIONED prone on the bed AND THE AREA OF THE INTRATHECAL PUMP WAS PREPPED WITH CHLORAPREP. The fenestrated drape was sterilely applied over the area of the pump. Sterile gloves were worn and of the aspiration system was assembled containing 2 in 22 gauge noncoring needle, the needle was connected to extension tubing which was connected to the 20 cc sterile syringe. The pain pump was palpated under the skin in the patient's right buttock area. The needle was inserted through the skin and the central plug of the pain pump and fluid was aspirated. The clear fluid was going into the syringe the total amount of the fluid was 4.6 mL .. After that a new batch? of medication was obtained which was containing hydromorphone in concentration 2000 micro g/ml and bupivacaine 40 mg per ml. The admixture was made in 20 cc syringe prepared by [facility] compounding pharmacy. The syringe was connected to the bacterial filter, and then connected to the extension tubing. After that the medication in the syringe was slowly instilled into the pump with aspirations at 15 and 5 cc fajardo.? The pump was reprogrammed with the doses of 100 mg per day with corresponding dose of bupivacaine of the continuous medication to stay the same as the last time. The corresponding dose of the bupivacaine is 1.2 mg per day. she will be able to receive every 3 hours as previously the dose of hydromorphone which was increased today to 170 micro g of hydromorphone and 3.602 mg of bupivacaine on demand 5 times in 24 hour period. (8) Generalized osteoarthritis: Code(s): M15.9 - Polyosteoarthritis, unspecified Category: Medical Plan: Patient complains on intractable pain in the lower lumbar spine. We tried multiple ways to help her pain. She denies any help. At this time we only be able to prescribe escalation of the medications to help her pain. (9) Edema of both lower extremities: Code(s): R60.0 - Localized edema Category: Medical Plan Coding Level of Care Code Est Pt Level 3 (20994) Procedure Only Diagnoses Vertebrogenic low back pain M54.51 Lumbar back pain with radiculopathy affecting right lower extremity M54.16 Sacroiliac joint dysfunction of right side M53.3 Sacroiliitis M46.1 Disc degeneration, lumbar M51.36 Spondylosis of lumbar spine M47.816 Chronic pain syndrome G89.4 Generalized osteoarthritis M15.9 Edema of both lower extremities R60.0
[2024-08-04 13:34] VITALS: BP 139/80; PULSE 55; RESP 16; O2SAT 96; BMI 31.7
== END 2024-08-04 13:33 | disposition home or self-care (01) ==
LOC: HO.PMC 13:02
PROVIDERS: PCP Internal Medicine; Visit Provider Anesthesiology
DX: M54.51 Vertebrogenic low back pain (principal); M54.16 Radiculopathy, lumbar region; M53.3 Sacrococcygeal disorders, not elsewhere classified; M46.1 Sacroiliitis, not elsewhere classified; Z45.1 Encounter for adjustment and management of infusion pump; M51.369 Other intervertebral disc degeneration, lumbar region without mention of lumbar back pain or lower extremity pain; M47.816 Spondylosis without myelopathy or radiculopathy, lumbar region; G89.4 Chronic pain syndrome; M15.9 Polyosteoarthritis, unspecified; R60.0 Localized edema
CPT/HCPCS: 62370; 99213

== ENCOUNTER → 2024-08-04 13:01 | Outpatient (BNVA) | payer OTHER, SELFPAY | PROVIDERS: PCP Internal Medicine; Visit Provider Anesthesiology | DX: M54.16 Radiculopathy, lumbar region (principal); M53.3 Sacrococcygeal disorders, not elsewhere classified; M46.1 Sacroiliitis, not elsewhere classified; M51.360 Other intervertebral disc degeneration, lumbar region with discogenic back pain only; M47.816 Spondylosis without myelopathy or radiculopathy, lumbar region; G89.4 Chronic pain syndrome; M15.9 Polyosteoarthritis, unspecified; R60.0 Localized edema; Z45.1 Encounter for adjustment and management of infusion pump; Z79.899 Other long term (current) drug therapy | CPT/HCPCS: 62370; 99212 ==

== ENCOUNTER 2024-09-11 12:58 | Outpatient (AMB) | payer OTHER, SELFPAY ==
--- NOTE | 2024-09-11 13:00 | MHC.OFFVIS ---
Vital Signs 09/11/24 13:27 Height 5 ft 2 in Weight 178 lb 8 oz BMI 32.6 BP 141/63 H Blood Pressure Location Rt brachial Position Sitting Pulse 67 Pulse Source Pulse Oximeter Pulse Oximetry (%) 98 Oxygen Delivery Method Room Air Intake Visit Reasons: PUMP REFILL Intake Note: Pain today 06/17 Human Services Supervisor Required: Yes Human Services Supervisor Language: Faroese Accompanied by: Family/Other Allergies Seasonal Allergies Allergy (Mild, Verified 09/11/24 13:28) Unknown HPI Comments Details: Norma is here for replacement of the medication in the pain pump. She complains on abdominal pain. Examination see as below. No symptoms of peritoneal irritation however I would like to send her for urgent CT scan. The concentration of the medication was changed today for hydromorphone 4 milligrams/mL and bupivacaine 40 milligrams/mL now the relative concentration of the bupivacaine will be decreased against the 4 milligrams/mL concentration of the hydromorphone and she will feel less of the numbness sensation on the PTM doses. Her PTM doses will be return in 82 hours after the bridge bolus due to change of the hydromorphone concentration. [facility] Medical History Asthma-COPD overlap syndrome Lumbar back pain with radiculopathy affecting right lower extremity Sacroiliac joint dysfunction of right side Sacroiliitis Disc degeneration, lumbar HPV test positive Chronic pain syndrome Acute blood loss anemia Hypertension Osteoarthritis of right knee MENDENHALL (dyspnea on exertion) Presence of dental bridge Sleep apnea Diabetes Overflow stress urinary incontinence in female Urge incontinence Primary osteoarthritis of hands, bilateral Loose right total knee arthroplasty Hx of carpal tunnel syndrome Pulmonary nodules GERD (gastroesophageal reflux disease) Surgical History Hx of tubal ligation H/O knee surgery History of orthopedic surgery History of arthroplasty of right knee History of pubovaginal sling Hx of colonoscopy History of carpal tunnel release of both wrists History of esophagogastroduodenoscopy (EGD) Previous back surgery History of endometrial ablation Hx of section Family History Mother Diabetes Arthritis Brother Cancer Paternal Aunt Breast cancer Social History Household Members: None Housing: Apartment Are you a primary medicare sales representative to a significant other at home: No Do you presently have visiting nurse or other home services: Yes (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) Alcohol intake: former Year quit: 2017 Comment: pt sleeping Patient Tobacco Use Status: Current everyday Tobacco user Tobacco use type: Cigarette Cigarettes Per Day: 5 Years Smoked: 2014 Second Hand Smoke Exposure: No Substance Use Type: Crack/Cocaine and Marijuana service: No Current occupational status: disabled Current occupation: rt handed Female Reproductive History Menstrual Age of Menarche: 11 Review of Systems Const All systems reviewed & are unremarkable except as noted in HPI and below Physical Exam Vital Signs: Last Vital Signs Pulse 67 09/11/24 13:27 BP 141/63 H 09/11/24 13:27 Pulse Ox 98 09/11/24 13:27 Oxygen Delivery Method Room Air 09/11/24 13:27 BMI result Body Mass Index 32.6 Const General: cooperative and well developed Orientation/consciousness: patient oriented x3 Limitations: language barrier HEENT Head: Yes atraumatic Mouth: no other ( thrush) Throat: No postnasal drainage Eyes General: appearance normal, both eyes and all related structures Sclerae: sclerae normal EOM: EOMs intact bilaterally Neck Neck: Yes supple Lymphatic: no lymphadenopathy noted Chest Chest palpation & inspection: normal inspection of the chest Resp Effort & Inspection: normal respiratory effort, able to speak in complete sentences, normal respiratory pattern, no audible wheezes, no cough and decreased respiratory effort Cardio Jugular venous distension: no JVD GI Other: Severe tenderness on palpation in projection of the right lower quadrant and left lower quadrant. No guarding, no muscular rigidity. No rebound sign. Inspection: Yes normal to inspection Neuro General: patient oriented x3 Extrem General: No clubbing, No cyanosis and Yes edema (symmetric b/l LE pitting edema.) Assessment & Plan Assessment & Plan (1) Vertebrogenic low back pain: Code(s): M54.51 - Vertebrogenic low back pain Category: Medical Plan: (2) Lumbar back pain with radiculopathy affecting right lower extremity: Code(s): M54.16 - Radiculopathy, lumbar region Category: Medical (3) Sacroiliac joint dysfunction of right side: Code(s): M53.3 - Sacrococcygeal disorders, not elsewhere classified Category: Medical (4) Sacroiliitis: Code(s): M46.1 - Sacroiliitis, not elsewhere classified Category: Medical (5) Disc degeneration, lumbar: Code(s): M51.36 - Other intervertebral disc degeneration, lumbar region Category: Medical (6) Spondylosis of lumbar spine: Code(s): M47.816 - Spondylosis without myelopathy or radiculopathy, lumbar region Category: Medical (7) Chronic pain syndrome: Code(s): G89.4 - Chronic pain syndrome Category: Medical Plan: Intrathecal pump refill. THE PATIENT CAME TODAY IN THE office FOR THE CHANGE OF THE MEDICATION IN her PAIN PUMP. The name and date of were verified and informed consent was obtained for the procedure. ?The pump was interrogated and the residual amount of fluid was found to be 3.7 mL. SHE WAS POSITIONED prone on the bed AND THE AREA OF THE INTRATHECAL PUMP WAS PREPPED WITH CHLORAPREP. The fenestrated drape was sterilely applied over the area of the pump. Sterile gloves were worn and of the aspiration system was assembled containing 2 in 22 gauge noncoring needle, the needle was connected to extension tubing which was connected to the 20 cc sterile syringe. The pain pump was palpated under the skin in the patient's right buttock area. The needle was inserted through the skin and the central plug of the pain pump and fluid was aspirated. The clear fluid was going into the syringe the total amount of the fluid was 5.0 mL .. After that a new batch? of medication was obtained which was containing hydromorphone in concentration 4000 micro g/ml and bupivacaine 40 mg per ml. The admixture was made in 20 cc syringe prepared by [facility] compounding pharmacy. The syringe was connected to the bacterial filter, and then connected to the extension tubing. After that the medication in the syringe was slowly instilled into the pump with aspirations at 15 and 5 cc fajardo.? The pump was reprogrammed with the doses of 193 micro g per day per day with corresponding dose of bupivacaine of the continuous medication , after 82 hours of bridge bolus she will be able to receive every 3 hours as previously the dose of hydromorphone which was increased today to 170 micro g of hydromorphone and 3.602 mg of bupivacaine on demand 5 times in 24 hour period. (8) Generalized osteoarthritis: Code(s): M15.9 - Polyosteoarthritis, unspecified Category: Medical Plan: The patient complains on severe pain in the lower abdomen. I will send her for the CT scan of the abdomen. It will be with oral contrast only because patient has kidney insufficiency. (9) Edema of both lower extremities: Code(s): R60.0 - Localized edema Category: Medical (10) Abdominal pain: Code(s): R10.9 - Unspecified abdominal pain Category: Medical Plan I here by testify that I spent 32 minutes in conversation with this patient as well as planning her care and organizing this note. Orders: Orders CT abdomen pelvis wo IV con Today R10.9 - Unspecified abdominal pain Coding Level of Care Code Est Pt Level 4 (85190) Procedure Only Diagnoses Vertebrogenic low back pain M54.51 Lumbar back pain with radiculopathy affecting right lower extremity M54.16 Sacroiliac joint dysfunction of right side M53.3 Sacroiliitis M46.1 Disc degeneration, lumbar M51.36 Spondylosis of lumbar spine M47.816 Chronic pain syndrome G89.4 Generalized osteoarthritis M15.9 Edema of both lower extremities R60.0 Abdominal pain R10.9
[2024-09-11 13:27] VITALS: BP 141/63; PULSE 67; O2SAT 98; BMI 32.6
--- OUTSIDE RECORDS SUMMARY | 2024-09-17 02:17 | XMS_ITS | Data Portability ---
Author Organization [facility], Id in - [employer] Address [address] [place] [address] Care Team Providers Care Construction Specialist Name Role Phone [facility] Referring Provider [phone] [facility] Referring Provider Assessment No assessment recorded. Plan of Treatment Reminders Order Date Submit Date Provider Last Modified By Organization Details Last Modified Time Details Appointments None record ed. Lab None record ed. Referral None record ed. Procedures None record ed. Surgeries None record ed. Imaging None record ed. Medication Orders None record ed. Patient TargetsNo targets recorded. Patient InstructionsNo instructions recorded. Reason for Referral None Reported. Medical Equipment None Reported. Allergies Allergen ID Allergen Name Allergen Category Reaction Reaction Severity Criticality Documentation Date Start Date Code Code System Note Provider Name and Address Organization Details Recorded Time 1073 ibuprofen medicatio n Not available Not available Not available 08/05/2024 5640 RxNorm Not Available [employer] - [employer] 4 03:39:17 Medications Name Sig Start Date Stop Date Status Note LastModified by Organization Details LastModified Time medbox status USE DIRECTED active Not Available Not Available No t Available metformin 500 mg tablet TAKE 1 TABLET BY MOUTH TWICE DAILY IN THE MORNING AND IN THE EVENING active Not Available Not Available No t Available prednisone 10 mg tablet TAKE 4 TABLETS BY MOUTH ONCE DAILY FOR FOUR DAYS, THEN DECREASE BY 1 TABLET EVERY 4 DAYS DIRECTED active Not Available Not Available No t Available ipratropium 0.5 mg-albuterol 3 mg (2.5 mg base)/3 mL nebulization soln INHALE 1 AMPULE USING A NEBULIZER EVERY 4 TO 6 HOURS NEEDED FOR WHEEZING active Not Available Not Available No t Available cetirizine 10 mg tablet TAKE 1 TABLET BY MOUTH EVERYDAY AT NOON active Not Available Not Available No t Available ibuprofen 800 mg tablet TAKE 1 TABLET BY MOUTH THREE TIMES DAILY WITH FOOD active Not Available Not Available No t Available tizanidine 4 mg tablet TAKE 1 TABLET BY MOUTH TWICE DAILY NEEDED FOR MUSCLE SPASMS active Not Available Not Available No t Available meloxicam 15 mg tablet TAKE 1 TABLET BY MOUTH EVERY DAY active Not Available Not Available No t Available prednisone 20 mg tablet TAKE 3 TABLETS BY MOUTH ONCE DAILY FOR FOUR DAYS, 2 TABLETS ONCE DAILY FOR FOUR DAYS, THEN 1 TABLET ONCE DAILY FOR 2 DAYS active Not Available Not Available N ot Available Milk of Magnesia 400 mg/5 mL oral suspension TAKE 5 ML BY MOUTH ONCE DAILY NEEDED FOR UPSET STOMACH FOR 2 WEEKS active Not Available Not Available No t Available melatonin 3 mg tablet TAKE 1 TABLET BY MOUTH EVERY EVENING active Not Available Not Available No t Available amlodipine 5 mg tablet TAKE 1 TABLET BY MOUTH EVERYDAY AT NOON active Not Available Not Available No t Available omeprazole 40 mg capsule,elisabet yed release TAKE 1 CAPSULE BY MOUTH TWICE DAILY IN THE MORNING AND IN THE EVENING active Not Available Not Available No t Available acetaminophe n 500 mg tablet TAKE 1 TO 2 TABLETS BY MOUTH EVERY 8 HOURS NEEDED FOR MILD PAIN active Not Available Not Available No t Available oxycodone-ac etaminophen 5 mg-325 mg tablet TAKE 1 TABLET BY MOUTH EVERY 6 HOURS NEEDED FOR PAIN active Not Available Not Available No t Available ascorbic acid (vitamin C) 250 mg tablet TAKE 1 TABLET BY MOUTH EVERY OTHER DAY IN THE MORNING (WITH IRON) active Not Available Not Available Not Available cephalexin 500 mg capsule TAKE 2 CAPSULES BY MOUTH EVERY 8 HOURS FOR 16 DAYS. (TAKE WITH 25 BILLION CULTURE PROBIOTIC DIRECTED) active Not Available Not Available No t Available simvastatin 20 mg tablet TAKE 1 TABLET BY MOUTH AT BEDTIME active Not Available Not Available No t Available bismuth subsalicylat e 262 mg chewable tablet TAKE 2 TABLETS BY MOUTH FOUR TIMES DAILY FOR 7 DAYS active Not Available Not Available N ot Available simethicone 125 mg chewable tablet CHEW 1 TABLET BY MOUTH 2 TO 4 TIMES PER DAY NEEDED FOR GAS active Not Available Not Available No t Available codeine 10 mg-guaifenes in 100 mg/5 mL oral liquid TAKE 10mls EVERY 4 TO 6 HOURS NEEDED active Not Available Not Available No t Available bisacodyl 5 mg tablet,delay ed release TAKE 2 TABLETS BY MOUTH AT NOON DAILY FOR 3 DAYS. START 3 DAYS BEFORE COLONOSCOPY . active Not Available Not Available No t Available polyethylene glycol 3350 17 gram/dose oral powder MIX BOTTLE 64 OUNCES OF crystal light, THEN DRINK DIRECTED active Not Available Not Available No t Available levofloxacin 750 mg tablet TAKE 1 TABLET BY MOUTH ONCE DAILY FOR 7 DAYS active Not Available Not Available No t Available zolpidem 10 mg tablet TAKE 1 TABLET BY MOUTH AT BEDTIME NEEDED active Not Available Not Available No t Available losartan 100 mg tablet TAKE 1 TABLET BY MOUTH EVERYDAY AT NOON active Not Available Not Available No t Available fluticasone propionate 50 mcg/actuatio n nasal spray,suspen phan USE 1 SPRAY IN EACH NOSTRIL TWICE DAILY active Not Available Not Available Not Available dicyclomine 10 mg capsule TAKE 1 CAPSULE BY MOUTH THREE TIMES DAILY NEEDED FOR ABDOMINAL CRAMPS active Not Available Not Available No t Available atenolol 50 mg tablet TAKE 1 TABLET BY MOUTH EVERY EVENING active Not Available Not Available No t Available Ventolin HFA 90 mcg/actuatio n aerosol inhaler INHALE 2 PUFFS BY MOUTH EVERY 4 HOURS NEEDED SHORTNESS OF BREATH active Not Available Not Available No t Available Alcohol Prep Pads USE DIRECTED DAILY active Not Available Not Available No t Available duloxetine 60 mg capsule,elisabet yed release TAKE 1 CAPSULE BY MOUTH TWICE DAILY AT NOON AND IN THE EVENING active Not Available Not Available Not Available pregabalin 100 mg capsule TAKE 1 CAPSULE BY MOUTH TWICE DAILY IN THE MORNING AND AT BEDTIME active Not Available Not Available No t Available pregabalin 150 mg capsule TAKE 1 CAPSULE BY MOUTH THREE TIMES DAILY IN THE MORNING, EVENING, AND BEDTIME active Not Available Not Available Not Available Advair HFA 230 mcg-21 mcg/actuatio n aerosol inhaler INHALE 2 PUFFS BY MOUTH TWICE DAILY IN THE MORNING AND IN THE EVENING active Not Available Not Available No t Available FreeStyle Lite Strips TEST BLOOD SUGAR DAILY DIRECTED active Not Available Not Available Not Available Amitiza 8 mcg capsule TAKE 2 CAPSULES BY MOUTH TWICE DAILY active Not Available Not Available No t Available diclofenac 1 % topical gel APPLY TO THE AFFECTED AREA(S) 2 GRAMS TWICE DAILY active Not Available Not Available No t Available cholecalcife rol (vitamin D3) 50 mcg (2,000 unit) tablet TAKE 1 TABLET BY MOUTH EVERYDAY AT NOON active Not Available Not Available No t Available buprenorphin e 2 mg-naloxone 0.5 mg sublingual film DISSOLVE 1 FILM SUBLINGUAL EVERY DAY active Not Available Not Available No t Available TRUEplus Lancets 33 gauge TEST BLOOD SUGAR ONCE DAILY active Not Available Not Available No t Available Ferate 240 mg (27 mg iron) tablet TAKE 1 TABLET BY MOUTH EVERY OTHER DAY IN THE MORNING active Not Available Not Available No t Available Trelegy Ellipta 100 mcg-62.5 mcg-25 mcg powder for inhalation INHALE 1 PUFF BY MOUTH EVERY DAY active Not Available Not Available No t Available Vitals Date Recorded Oxygen saturation Oxygen saturation in Arterial blood by Pulse oximetry Respiratory rate Body weight Heart rate Systolic blood pressure Diastolic blood pressure Provider Name and Address Organization Details Last Updated DateTime 3 98 % 98 % 16 /min 73115.7 2 g 60 /min 151 mm[Hg] 66 mm[Hg] Not Available [employer] - 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 Functional Status None recorded. Mental Status None recorded. Family History Nothing Reported. Medical History No medical history recorded. Gynecological HistoryNo gynecological history recorded. Obstetrics History GPAL:G 0 P 0 0 0 0 Past Encounters Encounter ID Performer Location Encounter Start Date Encounter Closed Date Diagnosis/Indication Diagnosis SNOMED-CT Code Diagnosis ICD10 Code [id number] Sandy Fernández MD [facility] [address] [place] [phone] 03/29/2023 20:01:01 03/30/2023 11:29:07 Edema of lower extremity 664106359 R60.0 [id number] Yuli Betancourt MD [facility] [address] [place] [address] [phone] 11/12/2023 11:57:55 11/13/2023 10:18:19 Diarrhea 14420356 R19.7 Health Concerns Section Related Observation LastModified by Organization Detai ls LastModified Time None Recorded Concern Status LastModified by Organization Details LastModified Time None Recorded Advance Directives Directive None Recorded Payers Encounter Date Sequence Insurance Name Policy Number Policy Manley Covered Member ID Manley Member ID Guarantor Name 03/29/2023 1 [facility] - DOS ON OR AFTER 2023 - DUAL ELIGIBLE - LONG TERM OPTIONS AND ONE CARE (MEDICARE REPLACEMENT/ADV ANTAGE - HMO) Norma Corky [id number] Norma Torsten Corky 11/12/2023 1 [facility] - DOS ON OR AFTER 2023 - DUAL ELIGIBLE - LONG TERM OPTIONS AND ONE CARE (MEDICARE REPLACEMENT/ADV ANTAGE - HMO) Norma Fried [id number] Norma Torsten Corky Notes Date Note Type Note Provider Name and Address Organization Details Recorded Time 03/29/2023 text/html HPI: Patient reports concerns of increased swelling of lower legs. Worse at night. No open areas at this time. Patient also reports that she had two falls in last month or so and did not seek ED evaluation. Patient reports that she did have LOC with one episode. Patient does not check her BP or BS at home and is unable to verify what medication she takes for those. Patient at the store buying water at time of call. Pending Colonoscopy tomorrow. .................. .................. .................. .................. .................. .................. .................. ............... CRC Nursing Assessment: Comments: CRC RN DID NOT NEED FURTHER INFO .................. .................. .................. .................. .................. .................. .................. ............... Reconstructive Surgeon Note From Fermin Dennis: pt requesting visit for concern of swelling and pain in left lower extremity. pt has edema at the ankle and tenderness at the calf. Pt has been experiencing falls, states she has had two with one of them resulting in a syncopal episode. Pt states the leg pain and swelling has been going on for about 2 - 3months Pt states she has been experiencing dizziness especially when she goes from sitting to standing. Vitals assessed while sitting then while standing 151/66 while sitting 134/63 while standing with no change in heart rate or 02. [facility] contacted and recommends pt go to the hospital for imaging because the pt could have clots in her leg or a fracture. Pt at this time refuses transport to the hospital stating she has a colonoscopy tomorrow that she has prepped for and has a doctors appointment on sunday. Pt was explained the risks and benefits of going to the hospital [place] pt seems willing to go after her colonoscopy or the day after her colonoscopy to be seen in the hospital. Pt educated on s/s warranting a 911 call/trip to the hospital. Reconstructive Surgeon Allergies: Ibuprofen .................. .................. .................. .................. .................. .................. .................. ............... Disposition: Fulfilled Sandy Fernández MD [address] [facility],[address], [place], [address], [employer] 03/29/2023 21:02:04 11/12/2023 text/html HPI: HX Anemia. Post Covid diagnosed and treated with Paxlovid 10/15/23. Patient with complaints with weakness and fatigue. No appetite. Using inhaler no wheezing but feels funny after use with sweating. No identified chest pain or pressure. Patient wants labs done. No recent labs on file. .................. .................. .................. .................. .................. .................. .................. ............... CRC Nurse Triage Notes (Ambreen Tejada): Comments: CRC RN DID NOT NEED FURTHER INFO Baseline Information: Baseline Hb: 11.6 g/dL Baseline HCt: 34% .................. .................. .................. .................. .................. .................. .................. ............... Reconstructive Surgeon Note From Dre Pack: Dispatched to the call address for the female with some concerns of being sick. Pt states she had a rough month in October. She had Covid-19 in the beginning of the month, took a course of Paxlovid but then last week went back to the clinic with SoB. Pt stated she had an issue with her asthma and was given abx and Prednisone. Pt took all the Prednisone but only took her Doxycycline 1x daily instead of 2. Pt currently denies CP, SOB, n/v/d, black or bloody stools, abd pain or fevers. Pt states she had diarrhea on Sunday. She advises though she has a diminished appetite she is able to tolerate PO hydration. Pt was found opening door, CAOx4, airway open and patent, breathing non labored, able to speak in full sentences, -JVD, -HEENT, skin PWD with good turgor, abd soft non tender/distended, pupils PERRL, +CMSx4, strong and equal radial pulses, lung sounds clear and equal bilaterally. [facility] consulted. Pt advised of red flags. ALL times are approx. .................. .................. .................. .................. .................. .................. .................. ............... Disposition: Fulfilled Yuli Betancourt MD [address] [facility],[address], [place], [address], [employer] 11/12/2023 21:44:43 OBGyn Episode No OBEpisode recorded.
== END 2024-09-11 13:43 | disposition home or self-care (01) ==
PROVIDERS: PCP Internal Medicine; Visit Provider Anesthesiology
DX: G89.4 Chronic pain syndrome (principal); M54.51 Vertebrogenic low back pain; M54.16 Radiculopathy, lumbar region; M53.3 Sacrococcygeal disorders, not elsewhere classified; Z45.1 Encounter for adjustment and management of infusion pump; M46.1 Sacroiliitis, not elsewhere classified; M51.369 Other intervertebral disc degeneration, lumbar region without mention of lumbar back pain or lower extremity pain; M47.816 Spondylosis without myelopathy or radiculopathy, lumbar region; M15.9 Polyosteoarthritis, unspecified; R60.0 Localized edema; R10.9 Unspecified abdominal pain
CPT/HCPCS: 62370; 99214

== ENCOUNTER → 2024-09-11 12:58 | Outpatient (BNVA) | payer OTHER, SELFPAY | PROVIDERS: PCP Internal Medicine; Visit Provider Anesthesiology | DX: M54.51 Vertebrogenic low back pain (principal); M53.3 Sacrococcygeal disorders, not elsewhere classified; M46.1 Sacroiliitis, not elsewhere classified; M51.369 Other intervertebral disc degeneration, lumbar region without mention of lumbar back pain or lower extremity pain; M47.26 Other spondylosis with radiculopathy, lumbar region; G89.4 Chronic pain syndrome; M15.9 Polyosteoarthritis, unspecified; R60.0 Localized edema; R10.9 Unspecified abdominal pain; Z45.1 Encounter for adjustment and management of infusion pump; Z79.891 Long term (current) use of opiate analgesic | CPT/HCPCS: 62370; 99212 ==

== ENCOUNTER 2024-09-12 13:06 | Outpatient (REF) | payer OTHER, SELFPAY ==
--- NOTE | ~2024-09-12 | MM_ITS ---
EXAMINATION: BONE DENSITOMETRY CLINICAL INDICATION: Asymptomatic menopausal state. COMPARISON: Previous BD dated 10/15/2015 and baseline BD dated 01/22/2009. TECHNIQUE: Using a [employer] DXA System (software version: 13.1) manufactured by [employer], dual-energy x-ray absorptiometry was performed of the lumbar spine and left hip. The images are of good technical quality. Summary results are attached. FINDINGS: LEFT FEMUR, NECK: Current: BMD 0.871 g/cm2, Z-score -0.1, T-score -1.2, osteopenia. Prior: BMD 0.934 g/cm2. Baseline: BMD 0.914 g/cm2. LEFT FEMUR, TOTAL: Current: BMD 1.048 g/cm2, Z-score 1.1, T-score 0.3, normal, 0.6% decrease from previous, 0.2% decrease from baseline (<5% change is not significant). Prior: BMD 1.054 g/cm2. Baseline: BMD 1.050 g/cm2. AP SPINE L1-L4: Current: BMD 1.314 g/cm2, Z-score 2.2, T-score 1.1, normal, 1.9% increase from previous, 1.7% increase from baseline (<5% change is not significant). Prior: BMD 1.289 g/cm2. Baseline: BMD 1.292 g/cm2. IDENTIFIED RISK FACTORS: Menopause, tobacco user (current smoker). HISTORY OF FRACTURE: None listed. MEDICATIONS: Multivitamin, vitamin D. MM/XR DEXA axial skeleton IMPRESSION: 1. DIAGNOSIS: Osteopenia based on the lowest T-score value of -1.2 in the femoral neck applying World Health Organization criteria. 2. 10-YEAR FRACTURE RISK PREDICTION, FRAX: Major osteoporotic fracture (clinical spine, forearm, hip or shoulder) 4.4%. Hip fracture 0.6%. 3. Treatment Recommendations: NOF guidelines recommend consideration for treatment in postmenopausal women and men age 50 and older presenting with the following: -A hip or vertebral (clinical or morphometric) fracture. -T-score less than or equal to -2.5 at the femoral neck or spine after appropriate evaluation to exclude secondary causes. -Low bone mass at the hip or spine and a 10-year fracture probability by FRAX of greater than or equal to 3% for hip fracture or greater than or equal to 20% for major osteoporotic fracture based on the [place] adapted WHO algorithm. 4. Other Recommendations: All treatment decisions require clinical judgment and consideration of individual patient factors, including patient preferences, comorbidities, previous drug use, risk factors not captured in the FRAX model (e.g. frailty, falls, vitamin D deficiency, increased bone turnover, interval significant decline in bone density) and possible under or overestimation of fracture risk by FRAX. Additional medical evaluation for secondary cause of low bone mineral density may be appropriate. FUTURE SCAN RECOMMENDATION: People with diagnosed cases of osteoporosis or at high risk for fracture should have regular bone mineral density tests. For patients eligible for Medicare, routine testing is allowed once every 2 years. The testing frequency can be increased to one year for patients who have rapidly progressing disease, those who are receiving or discontinuing medical therapy to restore bone mass, or have additional risk factors. Electronically signed by: Hannah Shaffer MD 09/15/2024 08:33 AM [facility] CALLAHAN
--- NOTE | ~2024-09-12 | MM_ITS ---
EXAMINATION: MM SCREENING DIGITAL BREAST TOMOSYNTHESIS, BILATERAL CLINICAL INFORMATION: Screening. Asymptomatic. COMPARISON: Mammography: Comparison is made with available priors TECHNIQUE: Digital breast mammography with tomosynthesis is performed in both the craniocaudal and mediolateral oblique views along with computer-aided detection (CAD). FINDINGS: There are scattered areas of fibroglandular density (ACR BI-RADS breast composition Category b). There are no significant masses, abnormal calcifications, or other abnormalities. MM/MM tomosynthesis screening BI IMPRESSION: No mammographic evidence of malignancy. ASSESSMENT: BI-RADS BI-RADS 1 - Negative RECOMMENDATION: Routine annual mammography screening. 1 year F/U This examination should not preclude the clinical evaluation of a suspicious palpable abnormality. This patient's information was entered into a reminder system with a target due date for their next mammogram. Electronically signed by: Chelsi Beverly DO 09/18/2024 01:25 PM K[facility]
== END 2024-09-12 13:07 | disposition home or self-care (01) ==
LOC: HO.MAMMO 13:06
PROVIDERS: PCP Internal Medicine; Visit Provider Obstetrics & Gynecology
DX: Z12.31 Encounter for screening mammogram for malignant neoplasm of breast (principal); Z13.820 Encounter for screening for osteoporosis; Z78.0 Asymptomatic menopausal state
CPT/HCPCS: 77063; 77067; 77080

== ENCOUNTER → 2024-09-12 13:15 | Outpatient (BNV) | payer OTHER, SELFPAY | PROVIDERS: PCP Internal Medicine; Visit Provider Internal Medicine | DX: Z12.31 Encounter for screening mammogram for malignant neoplasm of breast (principal) | CPT/HCPCS: 77063; 77067 ==

== ENCOUNTER 2024-09-15 13:30 | Outpatient (AMB) | payer OTHER, SELFPAY ==
[2024-09-15 13:38] VITALS: BP 134/66; PULSE 66; O2SAT 100; BMI 31.5
--- NOTE | 2024-09-15 13:38 | A.OFFVIS_ITS ---
Vital Signs 09/15/24 13:38 Height 5 ft 2 in Weight 172 lb BMI 31.5 BP 134/66 Blood Pressure Location Lt brachial Position Sitting Pulse 66 Pulse Source Pulse Oximeter Pulse Oximetry (%) 100 Oxygen Delivery Method Room Air Intake Visit Reasons: PIP pain and swelling/Cm Intake Note: Patient presents today for PIP pain and swelling. She was last seen in the office by Dr. Beckham on 06/20/24. Chips Screen Tender Services: Chips Screen Tender Offered & Declined Chips Screen Tender Name: Patient's niece and [employer] BEARERLudwig Chanda Accompanied by: Nephew or Niece Allergies Seasonal Allergies Allergy (Mild, Verified 09/11/24 13:28) Unknown Medication List - Last Reconciled 09/15/24 by Juana Waite MD acetaminophen ER 650 mg PO DAILY albuterol sulfate 90 mcg/actuation (Ventolin HFA) 2 puffs PO Q4H PRN arformoterol (Brovana) 2 mL inhalation BID 30 days ascorbic acid (vitamin C) 250 mg PO DAILY atenolol 50 mg PO DAILY budesonide 0.5 mg (2 mL) inhalation BID 30 days calcium polycarbophil (Fiber-Lax) mg PO cetirizine 10 mg PO DAILY chlorthalidone 50 mg PO DAILY cholecalciferol (vitamin D3) 50 mcg PO DAILY clonazepam 0.5 mg PO DAILY doxepin 50 mg PO BEDTIME escitalopram oxalate 10 mg PO DAILY ferrous gluconate 240 mg PO Q OTHER DAY fluticasone propionate 50 mcg/actuation 1 spray intranasal BID hydrocortisone 2.5% 1 appl CA BID-QID PRN 30 days ipratropium-albuterol 0.5 mg-3 mg(2.5 mg base)/3 mL 3 mL inhalation Q4-6H PRN 30 days loperamide 2 mg PO Q6H PRN losartan 100 mg PO DAILY lubiprostone (Amitiza) 16 mcg (2 x 8 mcg) PO BID 30 days metformin 500 mg PO BID methylprednisolone (Medrol (João)) 4 mg PO DAILY 6 days mupirocin 2% 1 appl topical TID naloxone 4 mg/actuation 4 mg intranasal Q2M PRN 1 day omeprazole 40 mg PO BID 30 days pantoprazole 40 mg PO BID pregabalin 150 mg PO BID 30 days simvastatin 40 mg PO BEDTIME zolpidem 10 mg PO BEDTIME PRN HPI Comments Details: Patient is a 64-year-old [place]-speaking female with hypertension, asthma, depression, diabetes and hyperlipidemia who presents today for follow up of her hand osteoarthritis. Interval History: Patient last seen 06/20/[address] Beckham. At that time her osteoarthritis was stable and she was following up with hand surgery Today patient reports swelling and tenderness to palpation of the 1st PIP 3rd PIP and 5th PIP. Also requesting referral to Dermatology for nail discoloration Rheumatologic History: Patient with polyarticular osteoarthritis involving multiple joints including the neck, hands, shoulders and knees. Had fusion of her 2nd and 3rd PIP joints Right total knee replacement Current Rheumatology Medication(s): [facility] Medical History (Updated 09/15/24 @ 15:11 by Juana Waite MD) Osteopenia Asthma-COPD overlap syndrome Lumbar back pain with radiculopathy affecting right lower extremity Sacroiliac joint dysfunction of right side Sacroiliitis Disc degeneration, lumbar HPV test positive Chronic pain syndrome Acute blood loss anemia Hypertension Osteoarthritis of right knee MENDENHALL (dyspnea on exertion) Presence of dental bridge Sleep apnea Diabetes Overflow stress urinary incontinence in female Urge incontinence Primary osteoarthritis of hands, bilateral Loose right total knee arthroplasty Hx of carpal tunnel syndrome Pulmonary nodules GERD (gastroesophageal reflux disease) Surgical History Hx of tubal ligation H/O knee surgery History of orthopedic surgery History of arthroplasty of right knee History of pubovaginal sling Hx of colonoscopy History of carpal tunnel release of both wrists History of esophagogastroduodenoscopy (EGD) Previous back surgery History of endometrial ablation Hx of section Family History Mother Diabetes Arthritis Brother Cancer Paternal Aunt Breast cancer Social History Household Members: None Housing: Apartment Are you a primary morning caregiver to a significant other at home: No Do you presently have visiting nurse or other home services: Yes ([employer]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) Alcohol intake: former Year quit: 2017 Comment: pt sleeping Patient Tobacco Use Status: Current everyday Tobacco user Tobacco use type: Cigarette Cigarettes Per Day: 5 Years Smoked: 2014 Second Hand Smoke Exposure: No Substance Use Type: Crack/Cocaine and Marijuana service: No Current occupational status: disabled Current occupation: rt handed Female Reproductive History Menstrual Age of Menarche: 11 Review of Systems Const Details: Review of Systems Constitutional: Denies fever, chills, weight loss ENT: Denies vision changes, eye pain or eye redness, dental caries, dry mouth GI: Denies nausea, vomiting, diarrhea, abdominal pain, change in BM Pulm: Denies SOB, MENDENHALL, hemoptysis, wheezing Cards: Denies chest pain, palpitations Skin: Denies Raynaud's, rash, nail changes, photosensitivity, SENIOR CLINICAL DATA COORDINATOR: Denies headaches, weakness, paresthesias, recurrent falls MSK: as per HPI All other systems reviewed and are unremarkable except noted above Physical Exam Vital Signs: Last Vital Signs Pulse 66 09/15/24 13:38 BP 134/66 09/15/24 13:38 Pulse Ox 100 09/15/24 13:38 Oxygen Delivery Method Room Air 09/15/24 13:38 BMI result Body Mass Index 31.5 Physical Examination CONSTITUITIONAL Patient alert and cooperative. Well appearing and in no apparent painful distress HEENT Conjunctiva and sclera clear. ?Pupils equal round and reactive to light. ?No lymphadenopathy. ? CHEST/RESPIRATORY SYSTEM Normal respiratory effort and able to speak in complete sentences. ?Clear to auscultation bilaterally. ?No crackles, rales, rhonchi, wheezes heard. CARDIAC SYSTEM Regular rate and rhythm. ?S1 and S2 heard no murmurs. ?Radial pulses intact bilaterally MSK Hands: ? Unable to make a full fist of her right hand. Swelling and tenderness to palpation of the 1st PIP, 3rd PIP and 5th PIP joint. Heberden's nodes noted throughout bilateral hands. Left hand with Heberden's and Tanya's nodes but without tenderness to palpation of the PIP joints. Wrists: ?Full range of motion at the wrists without pain. ?No tenderness to palpation or synovitis noted to the wrists. Elbows: Full range of motion without pain. No tenderness, weakness, swelling, increased warmth or erythema. Shoulders: Full range of motion without pain. No tenderness, weakness, swelling, increased warmth or erythema. Hips: Full range of motion without pain. Hip bursa: No tenderness to palpation Knees: ?Full range of motion. ?No tenderness, swelling, increased warmth or erythema.?No effusion or crepitations Ankles: Full range of motion. ?No tenderness, swelling, increased warmth or erythema.? Feet: ?Negative squeeze test. ?No tenderness to palpation or swelling of the MTPs. Tender points:??No tenderness to palpation of the neck, shoulders, chest, elbows, hips, buttocks or knees. SKIN Skin intact without rashes. Results Reviewed Results Reviewed: Laboratory Tests 02/11/24 12:54 Random Glucose 119 H C-Reactive Protein 0.47 Bilateral Hand XR 01/10/2023. FINDINGS: Single surgical screw fusing the second PIP joint with osseous fusion. New surgical screw fusing the third PIP joint without definite osseous fusion. No evidence of hardware fracture or complication. No acute fracture or dislocation. Advanced degenerative changes of the proximal and distal interphalangeal joints. Soft tissue swelling about Assessment & Plan Assessment & Plan (1) Osteoarthritis of hands, bilateral: Code(s): M19.041 - Primary osteoarthritis, right hand; M19.042 - Primary osteoarthritis, left hand Category: Medical Qualifiers: Osteoarthritis type: primary Qualified Code(s): M19.041 - Primary osteoarthritis, right hand; M19.042 - Primary osteoarthritis, left hand Plan: #Bilateral Hand OA Patient with a flare of her bilateral hand OA. Plan -Topical diclofenac up to 4 times a day - Steroid injection to the 1st, 3rd and 5th PIP joints today - RTC 6 months (2) Osteopenia: Code(s): M85.80 - Other specified disorders of bone density and structure, unspecified site Category: Medical Qualifiers: Osteopenia location: femoral neck Laterality: left Qualified Code(s): M85.852 - Other specified disorders of bone density and structure, left thigh Plan: #Left femoral neck osteopenia DEXA confirms osteopenia No falls or fractures FRAX score does not indicate treatment Plan - Vit D - Weight bearing exercises Plan I spent 25 minutes reviewing the record and labs, seeing the patient, discussing the treatment plan and documenting in the medical record ? Orders: Orders AMB Joint Injection/Aspiration Today M19.041 - Primary osteoarthritis, right hand, M19.042 - Primary osteoarthritis, left hand AMB Joint Injection/Aspiration Today M19.041 - Primary osteoarthritis, right hand, M19.042 - Primary osteoarthritis, left hand AMB Joint Injection/Aspiration Today M19.041 - Primary osteoarthritis, right hand, M19.042 - Primary osteoarthritis, left hand Referrals Dermatology Referral L60.8 - Other nail disorders Medications: New Kenalog (triamcinolone acetonide) 20 mg (0.5 mL) intra-articular ONCE 0.5 mL 0RF NS M19.041 - Primary osteoarthritis, right hand, M19.042 - Primary osteoarthritis, left hand Kenalog (triamcinolone acetonide) 20 mg (0.5 mL) intra-articular ONCE 0.5 mL 0RF NS M19.041 - Primary osteoarthritis, right hand, M19.042 - Primary osteoarthritis, left hand lidocaine (PF) 5 mg (0.5 mL) Infiltration ONCE 0.5 mL 0RF M19.041 - Primary osteoarthritis, right hand, M19.042 - Primary osteoarthritis, left hand lidocaine (PF) 5 mg (0.5 mL) Infiltration ONCE 0.5 mL 0RF M19.041 - Primary osteoarthritis, right hand, M19.042 - Primary osteoarthritis, left hand lidocaine (PF) 5 mg (0.5 mL) Infiltration ONCE 0.5 mL 0RF M19.041 - Primary osteoarthritis, right hand, M19.042 - Primary osteoarthritis, left hand Kenalog (triamcinolone acetonide) 20 mg (0.5 mL) intra-articular ONCE 0.5 mL 0RF NS M19.041 - Primary osteoarthritis, right hand, M19.042 - Primary osteoarthritis, left hand Discontinued methylprednisolone (Medrol (João)) Take by mouth as follows on the Schedule: 11:00 05/03/2024-6 pills, 11 a.m. 05/04/2024-5 pills, 11 a.m. 05/05/2024-4 pills, 11 a.m. 05/06/2024-3 pills, 11 a.m. 05/07/2024-2 pills, 11 a.m. 05/08/2024 1 pill. Discontinued Reason: Patient no longer taking 4 mg PO DAILY 6 days 6 ea 0RF Coding Level of Care Code Est Pt Level 3 (38201) Diagnoses Primary osteoarthritis of both hands M19.041; M19.042 Osteoarthritis type: primary Osteopenia of neck of left femur M85.852 Osteopenia location: femoral neck Laterality: left
== END 2024-09-15 14:32 | disposition home or self-care (01) ==
PROVIDERS: PCP Internal Medicine; Visit Provider Student in an Organized Health Care Education/Training Program
DX: M19.041 Primary osteoarthritis, right hand (principal); M19.042 Primary osteoarthritis, left hand; M85.852 Other specified disorders of bone density and structure, left thigh
CPT/HCPCS: 99213

== ENCOUNTER → 2024-09-15 13:30 | Outpatient (BNVA) | payer OTHER, SELFPAY | PROVIDERS: PCP Internal Medicine; Visit Provider Student in an Organized Health Care Education/Training Program | DX: M19.041 Primary osteoarthritis, right hand (principal); M19.042 Primary osteoarthritis, left hand; M85.852 Other specified disorders of bone density and structure, left thigh | CPT/HCPCS: 99212 ==

== ENCOUNTER 2024-10-13 10:03 | Outpatient (REF) | payer OTHER, SELFPAY ==
--- NOTE | ~2024-10-13 | US_ITS ---
EXAMINATION: US ABDOMEN HISTORY: area of GB sludge vs wall thickening vs polyp on US for f/u TECHNIQUE: Real-time grayscale ultrasound imaging of the abdomen was performed and images were reviewed. COMPARISON: Comparison is made with the prior examination dated 05/01/2024. FINDINGS: Liver: The liver is normal in size, but demonstrates increased echotexture, consistent with steatosis. Multiple hepatic calcifications are again noted. No focal mass or intrahepatic biliary ductal dilatation is identified. Gallbladder and biliary tree: The gallbladder is unremarkable, without evidence of calculi, wall thickening, or pericholecystic fluid. The previously seen possible sludge versus wall thickening is no longer identified. There is no sonographic Bhatt sign. The common bile duct is normal in caliber measuring 6 mm. Kidneys: The right kidney measures 12.4 cm in length. The left kidney measures 12.0 cm in length. The kidneys are unremarkable, without evidence of masses, hydronephrosis, or calculi. Pancreas: The pancreatic head, neck, and body are unremarkable. The pancreatic tail is obscured by bowel gas. Spleen: The spleen is normal in size and contour, measuring 9.7 cm in length. Abdominal aorta and inferior vena cava: The visualized portions of the abdominal aorta and inferior vena cava are normal in caliber. There is no free fluid in the abdomen. US/US abdomen complete IMPRESSION: Hepatic steatosis. Otherwise unremarkable abdominal ultrasound. The previously seen possible gallbladder sludge versus gallbladder wall thickening is no longer identified. Electronically signed by: Sunil Mohan MD 10/13/2024 02:46 PM [facility]
--- OUTSIDE RECORDS SUMMARY | 2024-10-13 10:58 | XMS_ITS | Data Portability ---
Author Organization [employer] [facility], Wi in - [employer] Address [address] [place] [address] Care Team Providers Care Teacher Lip Reading Name Role Phone [facility] Referring Provider [phone] [facility] Referring Provider Assessment No assessment recorded. [...] Name and Address Organization Details Recorded Time 0814 ibuprofen medicatio n Not available Not available Not available 08/05/2024 5640 RxNorm Not Available [employer] [place] - [employer] 4 03:39:17 Medications Name Sig [...] 3 98 % 98 % 16 /min 59892.7 2 g 60 /min 151 mm[Hg] 66 mm[Hg] Not Available [employer] [place] - [employer] 3 20:01:13 Date Recorded Oxygen saturation Oxygen saturation in Arterial blood by Pulse oximetry Heart rate Respiratory rate Body temperature Systolic blood pressure Diastolic blood pressure Provider Name and Address Organization Details Last Updated DateTime 4 97 % 97 % 62 /min 16 /min 98.1 [degF] 112 mm[Hg] 70 mm[Hg] Not Available [employer] 4 11:57:57 Social History None recorded. Functional Status None recorded. Mental Status None recorded. Family History Nothing Reported. Medical History No medical history recorded. Gynecological HistoryNo gynecological history recorded. Obstetrics History GPAL:G 0 P 0 0 0 0 Past Encounters Encounter ID Performer Location Encounter Start Date Encounter Closed Date Diagnosis/Indication Diagnosis SNOMED-CT Code Diagnosis ICD10 Code Diagnosis Note [id number] Sandy Fernández MD [facility] [address] [place] [address] [phone] 03/29/2023 20:01:01 03/30/2023 11:29:07 Edema of lower extremity [id number] R60.0 Evaluation in the field was performed by my plant specialist colleague, as noted above, I provided real-time direction and supervisio n for this visit. 62yo F visited for isolated left lower extremity edema and pain progressiv e over past month a/w 2 syncopal episodes with LOC. Exam notable for unilateral LE edema with +pain on calf squeeze. VS notable for mild hypertensi on and orthostati cs borderline positive by BP criteria w/ baseline HR 60s. Reviewed w/ pt that need to rule out LLE DVT as cause of pain/swell ing montserrat iso syncopal episodes, DDx includes fracture (less likely given chronicity ), venous stasis. Also requires work up for syncope w/o associated neurologic sx or chest pain. After discussion of risks/bene fits pt declines ED eval and elects to wait until PCP appt next week, demonstrat es capacity. Recommend if syncope recurs or sx worsen she would seek emergent care. We discussed the diagnostic uncertaint y of home visits and the risk associated with this. In this case, the patient and I felt this to be an acceptable and reasonable amount of risk given the benefit of avoiding an ED visit. We discussed the need to seek care urgently/e mergently in the setting of any new or worsening serious symptoms, shortness of breath, cough, chest pain, fever. [id number] Yuli Betancourt MD [facility] - [address] [phone] 11/12/2023 11:57:55 11/13/2023 10:18:19 Diarrhea 19583053 R19.7 I provided real -time medical direction via phone for this encounter, and was available for additional phone based assistance as needed. I have reviewed and agree with the Assessment and Plan as documented by the Dance Historian. Patient given the opportunit y to ask questions. 63 yo w/ onset of diarrhea, nausea, headache 3d ago. Now all symptoms resolved. Able to tolerate PO fluids and solids. No abdominal pain, melena/hem atochezia/ hematemesi s, or fever. Had been prescribed doxycyclin e for a 'respirato ry issue' about which she was unclear and took abx QD instead of BID as prescribed . Recommende d discontinu ation of antibiotic and discarding remainder as she is now back to baseline. Otherwise no other interventi ons needed at this time. Reviewed warning s/sx. Health Concerns Section Related Observation LastModified by Organization Detai ls LastModified Time None Recorded Concern Status LastModified by Organization Details LastModified Time None Recorded Advance Directives Directive None Recorded Payers Encounter Date Sequence Insurance Name Policy Number Policy Manley Covered Member ID Manley Member ID Guarantor Name 03/29/2023 1 [facility] - DOS ON OR AFTER 2023 - DUAL ELIGIBLE - PENITENTIARY OPTIONS AND ONE CARE (MEDICARE REPLACEMENT/ADV ANTAGE - HMO) Norma Fried [id number] Norma Fried 11/12/2023 1 [facility] - DOS ON OR AFTER 2023 - DUAL ELIGIBLE - PENITENTIARY OPTIONS AND ONE CARE (MEDICARE REPLACEMENT/ADV ANTAGE - HMO) Norma Cadenaiago [id number] Norma Cadenaiago Notes Date Note Type Note Provider Name [...] .................. .................. .................. .................. .................. .................. ............... Dance Historian Note From Fermin Dennis: pt requesting visit [...] no change in heart rate or 02. [facility] [place] and recommends pt go to the [...] warranting a 911 call/trip to the hospital. Dance Historian Allergies: Ibuprofen .................. .................. .................. .................. .................. .................. .................. ............... Disposition: Fulfilled Sandy Fernández MD [address] [place] [address],[address], [place], [address], [employer] 03/29/2023 21:02:04 11/12/2023 text/html HPI: HX Anemia. [...] .................. .................. .................. .................. .................. .................. ............... Dance Historian Note From Dre Pack: Dispatched to the [...] ............... Disposition: Fulfilled Yuli Betancourt MD [address] [facility],[address], [place], [address], [employer] 11/12/2023 21:44:43 OBGyn Episode No OBEpisode recorded.
== END 2024-10-13 10:04 | disposition home or self-care (01) ==
LOC: HO.US 10:03
PROVIDERS: PCP Internal Medicine; Visit Provider Family Medicine
DX: R93.5 Abnormal findings on diagnostic imaging of other abdominal regions, including retroperitoneum (principal)
CPT/HCPCS: 76700

== ENCOUNTER → 2024-10-13 10:04 | Outpatient (BNV) | payer OTHER, SELFPAY | PROVIDERS: PCP Internal Medicine; Visit Provider Radiology Diagnostic Radiology | DX: K76.0 Fatty (change of) liver, not elsewhere classified (principal) | CPT/HCPCS: 76700 ==

== ENCOUNTER 2024-11-05 15:11 | Outpatient (REF) | payer OTHER, SELFPAY ==
--- NOTE | ~2024-11-05 | CT_ITS ---
EXAMINATION: CT ABDOMEN AND PELVIS WITHOUT CONTRAST CLINICAL INFORMATION: Abdominal pain COMPARISON: CT abdomen pelvis 10/11/2022 TECHNIQUE: Multidetector volumetric imaging was performed from the superior aspect of the liver through the pubic symphysis. Sagittal and coronal reformatted images were obtained on the technologist's workstation. This CT examination was performed using dose optimization techniques as appropriate, variously including the following: *Automated exposure control *Adjustment of mA and/or kV according to patient size (this includes techniques or standardized protocols for targeted exams where dose is matched to indication/reason for exam; i.e. extremities or head) *Use of iterative reconstruction technique DLP: 504 mGy/cm. FINDINGS: LUNG BASES: There is a 3 mm nodule left lung base image 9/7. There is platelike atelectasis right middle lobe and left lung base. There are intraspinal neuro stimulators from T8 to T9 vertebra. LIVER, GALLBLADDER, AND BILIARY TREE: The liver is normal in size, shape, and attenuation. No focal hepatic lesion or biliary ductal dilatation is present. There are punctate calcifications in the right and left hepatic lobe. The gallbladder is unremarkable with no evidence of radiopaque gallstones, gallbladder wall thickening, or obvious pericholecystic inflammatory changes. PANCREAS: Unremarkable. SPLEEN: Unremarkable. ADRENAL GLANDS: Unremarkable. KIDNEYS AND URETERS: The kidneys are normal in size, shape, and attenuation. No hydronephrosis, hydroureter, or calculi seen. No perinephric stranding. BLADDER: Unremarkable. GASTROINTESTINAL TRACT: There is recently ingested food and gas in colon without distention. The small bowel loops are normal caliber. Appendix is normal caliber. There is moderate stool in the right colon without distention. There is no inflammatory process, free air or free fluid. ABDOMINAL WALL: No significant hernia is appreciated. LYMPH NODES: Normal. VASCULAR: Unremarkable. PELVIC VISCERA: The uterus is anteverted and appears unremarkable. There is no adnexal mass or free air or free fluid. OSSEOUS STRUCTURES: Mildly in this changes L1-2, L3-4, L4-5 disc levels with vacuum disc phenomena and mild ventral spondylosis noted. No aggressive lytic or sclerotic process seen. CT/CT abdomen pelvis wo IV con IMPRESSION: No acute intra-abdominal process seen. Mild constipation. 3 mm nodule left lower lobe. Platelike atelectasis right middle lobe and left lung base. Fleischner guidelines were followed. Electronically signed by: Gen Gamino MD 11/05/2024 03:59 PM KASH
--- OUTSIDE RECORDS SUMMARY | 2024-11-05 17:12 | XMS_ITS | Data Portability ---
Author Organization [facility], [place] [employer] Address [address] [place] [address] Care Team Providers Care Rn Imaging Name Role Phone [facility] Referring Provider [phone] [facility] Referring Provider Assessment No assessment recorded. [...] Name and Address Organization Details Recorded Time 0775 ibuprofen medicatio n Not available Not available Not available 08/05/2024 5640 RxNorm Not Available [employer] - production 4 03:39:17 Medications Name Sig [...] 3 98 % 98 % 16 /min 33820.7 2 g 60 /min 151 mm[Hg] 66 mm[Hg] Not Available [employer] - production 3 20:01:13 Date Recorded Oxygen saturation Oxygen saturation in Arterial blood by Pulse oximetry Heart rate Respiratory rate Body temperature Systolic blood pressure Diastolic blood pressure Provider Name and Address Organization Details Last Updated DateTime 4 97 % 97 % 62 /min 16 /min 98.1 [degF] 112 mm[Hg] 70 mm[Hg] Not Available [employer] 4 11:57:57 Social History None recorded. Functional Status None recorded. Mental Status None recorded. Family History Nothing Reported. Medical History No medical history recorded. Gynecological HistoryNo gynecological history recorded. Obstetrics History GPAL:G 0 P 0 0 0 0 Past Encounters Encounter ID Performer Location Encounter Start Date Encounter Closed Date Diagnosis/Indication Diagnosis SNOMED-CT Code Diagnosis ICD10 Code Diagnosis Note [id number] Sandy Fernández MD Main - [facility] [address] [place] [phone] 03/29/2023 20:01:01 03/30/2023 11:29:07 Edema of lower extremity 621349424 R60.0 Evaluation in the field was performed by my marshmallow machine operator colleague, as noted above, I provided real-time [...] shortness of breath, cough, chest pain, fever. [id number] Yuli Betancourt MD [facility] - [address] [phone] 11/12/2023 11:57:55 11/13/2023 10:18:19 Diarrhea [id number] R19.7 I provided real -time medical direction via phone for this encounter, and was available for additional phone based assistance as needed. I have reviewed and agree with the Assessment and Plan as documented by the Mechanical Systems Designer. Patient given the opportunit y to ask [...] Manley Member ID Guarantor Name 03/29/2023 1 [facility] - DOS ON OR AFTER 2023 - DUAL ELIGIBLE - [facility] OPTIONS AND ONE CARE (MEDICARE REPLACEMENT/ADV ANTAGE - HMO) Norma Fried [id number] Norma Fried 11/12/2023 1 [facility] - DOS ON OR AFTER 2023 - DUAL ELIGIBLE - [facility] OPTIONS AND ONE CARE (MEDICARE REPLACEMENT/ADV ANTAGE - HMO) Norma Cadenaiago [id number] Norma Cadenaiago Notes Date Note Type Note [...] .................. .................. .................. .................. .................. .................. ............... Mechanical Systems Designer Note From Fermin Dennis: pt requesting visit [...] no change in heart rate or 02. [facility] recommends pt go to the [...] warranting a 911 call/trip to the hospital. Mechanical Systems Designer Allergies: Ibuprofen .................. .................. .................. .................. .................. .................. .................. ............... Disposition: Fulfilled Sandy Fernández MD [address] [place] [address],[address], [place], [address], [email or web address] 03/29/2023 21:02:04 11/12/2023 text/html HPI: HX Anemia. [...] .................. .................. .................. .................. .................. .................. ............... Mechanical Systems Designer Note From Dre Pack: Dispatched to the [...] ............... Disposition: Fulfilled Yuli Betancourt MD [address] [facility],[address], [place], [address], [facility] - [employer] 11/12/2023 21:44:43 OBGyn Episode No OBEpisode recorded.
== END 2024-11-05 15:12 | disposition home or self-care (01) ==
LOC: HO.CT 15:11
PROVIDERS: PCP Internal Medicine; Visit Provider Anesthesiology
DX: R10.9 Unspecified abdominal pain (principal)
CPT/HCPCS: 74176

== ENCOUNTER → 2024-11-05 15:13 | Outpatient (BNV) | payer OTHER, SELFPAY | PROVIDERS: PCP Internal Medicine; Visit Provider Radiology Diagnostic Radiology | DX: R91.1 Solitary pulmonary nodule (principal) | CPT/HCPCS: 74176 ==

== ENCOUNTER 2024-11-06 15:15 | Outpatient (AMB) | payer OTHER, SELFPAY ==
--- NOTE | 2024-11-06 15:16 | A.OFFVIS_ITS ---
Intake Visit Reasons: Dexa Follow up Tools And Parts Attendant Required: Yes Tools And Parts Attendant Language: Director Of Student Services Services: Tools And Parts Attendant Present ([email or web address]) Tools And Parts Attendant Name: Mary [id number] Information Interpreted: clinical only Metal Lather: Metal Lather Present (Danelle) Accompanied by: Self / Same As Patient Allergies Seasonal Allergies Allergy (Mild, Verified 11/06/24 15:17) Unknown HPI Comments Details: The patient is presenting for follow up regarding DEXA scan results. T score @ spine and femoral Neck respectively were=+1.1 /-1.2 and 10 year FRAX risk = 4.4/06% for severe osteoporosis and fracture. [facility] Medical History Osteopenia Asthma-COPD overlap syndrome Lumbar back pain with radiculopathy affecting right lower extremity Sacroiliac joint dysfunction of right side Sacroiliitis Disc degeneration, lumbar HPV test positive Chronic pain syndrome Acute blood loss anemia Hypertension Osteoarthritis of right knee M[place]ALL (dyspnea on exertion) Presence of dental bridge Sleep apnea Diabetes Overflow stress urinary incontinence in female Urge incontinence Primary osteoarthritis of hands, bilateral Loose right total knee arthroplasty Hx of carpal tunnel syndrome Pulmonary nodules GERD (gastroesophageal reflux disease) Surgical History Hx of tubal ligation H/O knee surgery History of orthopedic surgery History of arthroplasty of right knee History of pubovaginal sling Hx of colonoscopy History of carpal tunnel release of both wrists History of esophagogastroduodenoscopy (EGD) Previous back surgery History of endometrial ablation Hx of section Family History Mother Diabetes Arthritis Brother Cancer Paternal Aunt Breast cancer Social History Household Members: None Housing: Apartment Are you a primary hiv/aids care nurse to a significant other at home: No Do you presently have visiting nurse or other home services: Yes (PAINT [employer]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) Alcohol intake: former Year quit: 2017 Comment: pt sleeping Patient Tobacco Use Status: Current everyday Tobacco user Tobacco use type: Cigarette Cigarettes Per Day: 5 Years Smoked: 2014 Second Hand Smoke Exposure: No Substance Use Type: Crack/Cocaine and Marijuana service: No Current occupational status: disabled Current occupation: rt handed Female Reproductive History Menstrual Age of Menarche: 11 Review of Systems Const All systems reviewed & are unremarkable except as noted in HPI and below Reports as per HPI and Reports no additional complaints GI Reports no additional complaints Reports no additional complaints Assessment & Plan Assessment & Plan (1) Osteopenia: Code(s): M85.80 - Other specified disorders of bone density and structure, unspecified site Category: Medical Qualifiers: Laterality: left Osteopenia location: femoral neck Qualified Code(s): M85.852 - Other specified disorders of bone density and structure, left thigh Plan: Discussed with the patient the DEXA results and FRAX risk. FRAX risk and T score showed no evidence of osteoporosis. Discussed with the patient all the options for osteoporosis prevention including lifestyle modifications including Ca+D supplements 1200 mg po qd/800 MIU, Weight bearing exercises and proteine supplements. The patient verbalized understanding and agreed plan will repeat DEXA in 2 years. Coding Level of Care Code Est Pt Level 3 (79791) Diagnoses Osteopenia of neck of left femur M85.852 Laterality: left Osteopenia location: femoral neck
--- OUTSIDE RECORDS SUMMARY | 2024-11-06 19:03 | XMS_ITS | Data Portability ---
Author Organization [employer] [facility], [place] [employer] Address [address] [place] [address] Care Team Providers Care Weatherization Administrator Name Role Phone [facility] Referring Provider [facility] Referring Provider Assessment No assessment recorded. Plan [...] Name and Address Organization Details Recorded Time 4931 ibuprofen medicatio n Not available Not available Not available 08/05/2024 5640 RxNorm Not Available [employer] - production 4 03:39:17 Medications Name Sig [...] 3 98 % 98 % 16 /min 46618.7 2 g 60 /min 151 mm[Hg] 66 mm[Hg] Not Available [employer] - production 3 20:01:13 Date Recorded Oxygen saturation Oxygen saturation in Arterial blood by Pulse oximetry Heart rate Respiratory rate Body temperature Systolic blood pressure Diastolic blood pressure Provider Name and Address Organization Details Last Updated DateTime 4 97 % 97 % 62 /min 16 /min 98.1 [degF] 112 mm[Hg] 70 mm[Hg] Not Available [employer] 4 11:57:57 Social History None recorded. Functional Status None recorded. Mental Status None recorded. Family History Nothing Reported. Medical History No medical history recorded. Gynecological HistoryNo gynecological history recorded. Obstetrics History GPAL:G 0 P 0 0 0 0 Past Encounters Encounter ID Performer Location Encounter Start Date Encounter Closed Date Diagnosis/Indication Diagnosis SNOMED-CT Code Diagnosis ICD10 Code Diagnosis Note [id number] Sandy Fernández MD Main - [facility] [address] [place] [phone] 03/29/2023 20:01:01 03/30/2023 11:29:07 Edema of lower extremity [id number] R60.0 Evaluation in the field was performed by my tobacco acreage measurer colleague, as noted above, I provided real-time [...] shortness of breath, cough, chest pain, fever. [id number] Yuli Betancourt MD [facility] - [address] [address] 11/12/2023 11:57:55 11/13/2023 10:18:19 Diarrhea 26474770 R19.7 I provided real -time medical direction via phone for this encounter, and was available for additional phone based assistance as needed. I have reviewed and agree with the Assessment and Plan as documented by the Manager Of Planning. Patient given the opportunit y to ask [...] Manley Member ID Guarantor Name 03/29/2023 1 [facility] - DOS ON OR AFTER 2023 - DUAL ELIGIBLE - GROUP HOME OPTIONS AND ONE CARE (MEDICARE REPLACEMENT/ADV ANTAGE - HMO) Norma Fried [id number] Norma Fried 11/12/2023 1 [facility] - DOS ON OR AFTER 2023 - DUAL ELIGIBLE - GROUP HOME OPTIONS AND ONE CARE (MEDICARE REPLACEMENT/ADV ANTAGE - HMO) Norma Cadenaiago [id number] Norma Cadenaiago Notes Date Note Type Note [...] .................. .................. .................. .................. .................. .................. ............... Manager Of Planning Note From Fermin Dennis: pt requesting visit [...] no change in heart rate or 02. [facility] contacted and recommends pt go to the [...] warranting a 911 call/trip to the hospital. Manager Of Planning Allergies: Ibuprofen .................. .................. .................. .................. .................. .................. .................. ............... Disposition: Fulfilled Sandy Fernández MD [address] [place] [address],[address], [place], [address], [employer] 03/29/2023 21:02:04 11/12/2023 text/html HPI: HX Anemia. [...] .................. .................. .................. .................. .................. .................. ............... Manager Of Planning Note From Dre Pack: Dispatched to the [...] ............... Disposition: Fulfilled Yuli Betancourt MD [address] [facility],[address], [place], [address], [facility] - [employer] 11/12/2023 21:44:43 OBGyn Episode No OBEpisode recorded.
== END 2024-11-06 15:48 | disposition home or self-care (01) ==
LOC: HO.HWS 15:15
PROVIDERS: PCP Internal Medicine; Visit Provider Obstetrics & Gynecology
DX: M85.852 Other specified disorders of bone density and structure, left thigh (principal)
CPT/HCPCS: 99213

== ENCOUNTER → 2024-11-06 15:15 | Outpatient (BNVA) | payer OTHER, SELFPAY | PROVIDERS: PCP Internal Medicine; Visit Provider Obstetrics & Gynecology | DX: M85.852 Other specified disorders of bone density and structure, left thigh (principal) | CPT/HCPCS: 99212 ==

== ENCOUNTER → 2024-11-19 13:10 | Outpatient (BNVA) | payer MEDICARE, MEDICAID, SELFPAY | PROVIDERS: PCP Internal Medicine; Visit Provider Anesthesiology ==

== ENCOUNTER 2024-12-03 13:09 | Outpatient (AMB) | payer MEDICARE, MEDICAID, SELFPAY ==
[2024-12-03 13:13] VITALS: BP 141/63; PULSE 71; RESP 16; O2SAT 96; BMI 32.7
--- NOTE | 2024-12-03 13:13 | MHC.OFFVIS ---
Vital Signs 12/03/24 13:13 Height 5 ft 2 in Weight 179 lb BMI 32.7 BP 141/63 H Blood Pressure Location Lt brachial Position Sitting Respiration 16 Pulse 71 Pulse Source Pulse Oximeter Pulse Oximetry (%) 96 Oxygen Delivery Method Room Air Intake Visit Reasons: ITDD fill Aircraft Engine Specialist Required: No Community Outreach Specialist: Community Outreach Specialist Present Accompanied by: Francesco Wilson Allergies Seasonal Allergies Allergy (Mild, Verified 12/03/24 13:15) Unknown Medication List - Last Reconciled 12/03/24 by Whit Leon LPN acetaminophen ER 650 mg PO DAILY albuterol sulfate 90 mcg/actuation (Ventolin HFA) 2 puffs PO Q4H PRN arformoterol (Brovana) 2 mL inhalation BID 30 days ascorbic acid (vitamin C) 250 mg PO DAILY atenolol 50 mg PO DAILY budesonide 0.5 mg (2 mL) inhalation BID 30 days calcium polycarbophil (Fiber-Lax) mg PO cetirizine 10 mg PO DAILY chlorthalidone 50 mg PO DAILY cholecalciferol (vitamin D3) 50 mcg PO DAILY clonazepam 0.5 mg PO DAILY doxepin 50 mg PO BEDTIME escitalopram oxalate 10 mg PO DAILY ferrous gluconate 240 mg PO Q OTHER DAY fluticasone propionate 50 mcg/actuation 1 spray intranasal BID hydrocortisone 2.5% 1 appl TX BID-QID PRN 30 days ipratropium-albuterol 0.5 mg-3 mg(2.5 mg base)/3 mL 3 mL inhalation Q4-6H PRN 30 days loperamide 2 mg PO Q6H PRN losartan 100 mg PO DAILY lubiprostone (Amitiza) 16 mcg (2 x 8 mcg) PO BID 30 days metformin 500 mg PO BID mupirocin 2% 1 appl topical TID naloxone 4 mg/actuation 4 mg intranasal Q2M PRN 1 day omeprazole 40 mg PO BID 30 days pantoprazole 40 mg PO BID pregabalin 150 mg PO BID 30 days simvastatin 40 mg PO BEDTIME zolpidem 10 mg PO BEDTIME PRN HPI Comments Details: Norma is here for replacement of the medication in the pain pump. Last time she was in office with complains on severe abdominal pain I sent her to the CT scan urgently and did not demonstrate any acute changes in her abdomen. Today she continues to complain on pain in her lower back and pain with difficulty with prolonged sitting and flexing forward. I decided today to increase the dose of her PTM medication from 167 micro g of hydromorphone at a time with corresponding dose of bupivacaine to 189.9 micro g per application with corresponding dose of bupivacaine which she can use every 3 hours 5 times a day. Next time I will make an addition of baclofen to her admixture in the order to help her pain better. [facility] Medical History Osteopenia Asthma-COPD overlap syndrome Lumbar back pain with radiculopathy affecting right lower extremity Sacroiliac joint dysfunction of right side Sacroiliitis Disc degeneration, lumbar HPV test positive Chronic pain syndrome Acute blood loss anemia Hypertension Osteoarthritis of right knee [place] (dyspnea on exertion) Presence of dental bridge Sleep apnea Diabetes Overflow stress urinary incontinence in female Urge incontinence Primary osteoarthritis of hands, bilateral Loose right total knee arthroplasty Hx of carpal tunnel syndrome Pulmonary nodules GERD (gastroesophageal reflux disease) Surgical History Hx of tubal ligation H/O knee surgery History of orthopedic surgery History of arthroplasty of right knee History of pubovaginal sling Hx of colonoscopy History of carpal tunnel release of both wrists History of esophagogastroduodenoscopy (EGD) Previous back surgery History of endometrial ablation Hx of section Family History Mother Diabetes Arthritis Brother Cancer Paternal Aunt Breast cancer Social History Household Members: None Housing: Apartment Are you a primary critical care clinical nurse specialist to a significant other at home: No Do you presently have visiting nurse or other home services: Yes ([employer]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) Alcohol intake: former Year quit: 2017 Comment: pt sleeping Patient Tobacco Use Status: Current everyday Tobacco user Tobacco use type: Cigarette Cigarettes Per Day: 5 Years Smoked: 2014 Second Hand Smoke Exposure: No Substance Use Type: Crack/Cocaine and Marijuana service: No Current occupational status: disabled Current occupation: rt handed Female Reproductive History Menstrual Age of Menarche: 11 Review of Systems Const All systems reviewed & are unremarkable except as noted in HPI and below Physical Exam Vital Signs: Last Vital Signs Pulse 71 12/03/24 13:13 Resp 16 12/03/24 13:13 BP 141/63 H 12/03/24 13:13 Pulse Ox 96 12/03/24 13:13 Oxygen Delivery Method Room Air 12/03/24 13:13 BMI result Body Mass Index 32.7 Const General: cooperative and well developed Orientation/consciousness: patient oriented x3 Limitations: language barrier HEENT Head: Yes atraumatic Mouth: no other ( thrush) Throat: No postnasal drainage Eyes General: appearance normal, both eyes and all related structures Sclerae: sclerae normal EOM: EOMs intact bilaterally Neck Neck: Yes supple Lymphatic: no lymphadenopathy noted Chest Chest palpation & inspection: normal inspection of the chest Resp Effort & Inspection: normal respiratory effort, able to speak in complete sentences, normal respiratory pattern, no audible wheezes, no cough and decreased respiratory effort Cardio Jugular venous distension: no JVD GI Inspection: Yes normal to inspection Neuro General: patient oriented x3 Extrem General: No clubbing, No cyanosis and Yes edema (symmetric b/l LE pitting edema.) Results Reviewed Results Reviewed: CT ABDOMEN AND PELVIS WITHOUT CONTRAST CLINICAL INFORMATION: Abdominal pain COMPARISON: CT abdomen pelvis 10/11/2022 TECHNIQUE: Multidetector volumetric imaging was performed from the superior aspect of the liver through the pubic symphysis. Sagittal and coronal reformatted images were obtained on the technologist's workstation. This CT examination was performed using dose optimization techniques as appropriate, variously including the following: *Automated exposure control *Adjustment of mA and/or kV according to patient size (this includes techniques or standardized protocols for targeted exams where dose is matched to indication/reason for exam; i.e. extremities or head) *Use of iterative reconstruction technique DLP: 504 mGy/cm. FINDINGS: LUNG BASES: There is a 3 mm nodule left lung base image 9/7. There is platelike atelectasis right middle lobe and left lung base. There are intraspinal neuro stimulators from T8 to T9 vertebra. LIVER, GALLBLADDER, AND BILIARY TREE: The liver is normal in size, shape, and attenuation. No focal hepatic lesion or biliary ductal dilatation is present. There are punctate calcifications in the right and left hepatic lobe. The gallbladder is unremarkable with no evidence of radiopaque gallstones, gallbladder wall thickening, or obvious pericholecystic inflammatory changes. PANCREAS: Unremarkable. SPLEEN: Unremarkable. ADRENAL GLANDS: Unremarkable. KIDNEYS AND URETERS: The kidneys are normal in size, shape, and attenuation. No hydronephrosis, hydroureter, or calculi seen. No perinephric stranding. BLADDER: Unremarkable. GASTROINTESTINAL TRACT: There is recently ingested food and gas in colon without distention. The small bowel loops are normal caliber. Appendix is normal caliber. There is moderate stool in the right colon without distention. There is no inflammatory process, free air or free fluid. ABDOMINAL WALL: No significant hernia is appreciated. LYMPH NODES: Normal. VASCULAR: Unremarkable. PELVIC VISCERA: The uterus is anteverted and appears unremarkable. There is no adnexal mass or free air or free fluid. OSSEOUS STRUCTURES: Mildly in this changes L1-2, L3-4, L4-5 disc levels with vacuum disc phenomena and mild ventral spondylosis noted. No aggressive lytic or sclerotic process seen. IMPRESSION: No acute intra-abdominal process seen. Mild constipation. 3 mm nodule left lower lobe. Platelike atelectasis right middle lobe and left lung base. Fleischner guidelines were followed. Assessment & Plan Assessment & Plan (1) Vertebrogenic low back pain: Code(s): M54.51 - Vertebrogenic low back pain Category: Medical Plan: (2) Lumbar back pain with radiculopathy affecting right lower extremity: Code(s): M54.16 - Radiculopathy, lumbar region Category: Medical (3) Sacroiliac joint dysfunction of right side: Code(s): M53.3 - Sacrococcygeal disorders, not elsewhere classified Category: Medical (4) Sacroiliitis: Code(s): M46.1 - Sacroiliitis, not elsewhere classified Category: Medical (5) Disc degeneration, lumbar: Code(s): M51.36 - Other intervertebral disc degeneration, lumbar region Category: Medical (6) Spondylosis of lumbar spine: Code(s): M47.816 - Spondylosis without myelopathy or radiculopathy, lumbar region Category: Medical (7) Chronic pain syndrome: Code(s): G89.4 - Chronic pain syndrome Category: Medical Plan: Intrathecal pump refill. THE PATIENT CAME TODAY IN THE office FOR THE CHANGE OF THE MEDICATION IN her PAIN PUMP. The name and date of were verified and informed consent was obtained for the procedure. ?The pump was interrogated and the residual amount of fluid was found to be 1.8 mL. SHE WAS POSITIONED prone on the bed AND THE AREA OF THE INTRATHECAL PUMP WAS PREPPED WITH CHLORAPREP. The fenestrated drape was sterilely applied over the area of the pump. Sterile gloves were worn and of the aspiration system was assembled containing 2 in 22 gauge noncoring needle, the needle was connected to extension tubing which was connected to the 20 cc sterile syringe. The pain pump was palpated under the skin in the patient's right buttock area. The needle was inserted through the skin and the central plug of the pain pump and fluid was aspirated. The clear fluid was going into the syringe the total amount of the fluid was 4.9 mL .. After that a new batch? of medication was obtained which was containing hydromorphone in concentration 4000 micro g/ml and bupivacaine 40 mg per ml. The admixture was made in 20 cc syringe prepared by [facility] compounding pharmacy. The syringe was connected to the bacterial filter, and then connected to the extension tubing. After that the medication in the syringe was slowly instilled into the pump with aspirations at 15 and 5 cc fajardo.? The pump was reprogrammed with the doses of 193 micro g per day per day with corresponding dose of bupivacaine of the continuous medication , after 82 hours of bridge bolus she will be able to receive every 3 hours as previously the dose of hydromorphone which was increased today to 189.9 micro g of hydromorphone and 3.602 mg of bupivacaine on demand 5 times in 24 hour period. (8) Generalized osteoarthritis: Code(s): M15.9 - Polyosteoarthritis, unspecified Category: Medical (9) Edema of both lower extremities: Code(s): R60.0 - Localized edema Category: Medical (10) Abdominal pain: Code(s): R10.9 - Unspecified abdominal pain Category: Medical Plan Patient continues to complain on advanced pain in her lower back with radiation into bilateral lower extremities, she continues to complain on pain in flexing forward and prolonged sitting. Escalation of the opioid medications not result in pain improvement. the concentrate of the bupivacaine reached its maximum, therefore I decided to add A new medication-baclofen to her admixture. So next time she is here I will prepare for her mixture of hydromorphone 4 milligrams/mL bupivacaine 40 milligrams/mL and baclofen 200 micro g per mL in 20 mL of preservative-free normal saline. Dose of the on demand medication was decreased minimally less than 10% for the patient. Coding Level of Care Code Est Pt Level 3 (70658) Procedure Only Diagnoses Vertebrogenic low back pain M54.51 Lumbar back pain with radiculopathy affecting right lower extremity M54.16 Sacroiliac joint dysfunction of right side M53.3 Sacroiliitis M46.1 Disc degeneration, lumbar M51.36 Spondylosis of lumbar spine M47.816 Chronic pain syndrome G89.4 Generalized osteoarthritis M15.9 Edema of both lower extremities R60.0 Abdominal pain R10.9
--- OUTSIDE RECORDS SUMMARY | 2024-12-03 16:09 | XMS_ITS | Encounter Summary ---
Author Organization [employer] [facility] Address [address] [place] [address] Care Team Providers Care Member Certification Manager Name Role Phone Sofia Montalvo MD Primary Care Provide r Encounter Details Date Type Department Care Team ([facility] Contact Info) Description 07/06/2023 Orders Only [facility] MED[facility]INE [address] [place] [address] [phone] ProviderAlli MD Social History Tobacco Use Types Packs/Day Years Used Date Smoking Tobacco: Every Day Cigarettes 0.3 1 Passive Smoke Exposure: Never Smokeless Tobacco: Never Alcohol Use Standard Drinks/Week Comments Yes 0 (1 standard drink = 0.6 oz pur e alcohol) weekends Depression Answer Date Recorded Patient Health Questionnaire-2 Score 2 05/08/2023 Comments Unknown Sex and Gender Information Value Date Recorded Sex Assigned at Female 08/07/2022 10:19 AM EDT Legal Sex Female 10:19 AM EDT Gender Identity Female 08/07/2022 10:19 AM EDT Sexual Orientation Choose not to disclose 2021 10:19 AM EDT documented as of this encounter Plan of Treatment Upcoming Encounters Date Type Department Care Team (Late Contact Info) Description 12/15/2024 1:30 PM EDT Office Visit [facility] MED[facility]INE [address] [place] [address] [phone] Sofia Montalvo MD [address] [place] [phone] 03/30/2025 10:30 AM EDT Telemedicine [facility] MEDICINE [address] [place] [address] [phone] documented as of this encounter Procedures Procedure Name Priority Date/Time Associated Diagnosis Comments BIOPSY CERVIX Routine 04/19/2021 documented in this encounter Results * Biopsy cervix (04/19/2021) us Historical Provider MD IN CLINIC/BEDSIDE ORDERAB LES Final Result documented in this encounter Visit Diagnoses Not on filedocumented in this encounter Care Teams Member Certification Manager Relationship Specialty Start Date End Date Sofia Montalvo MD [address] [place] [phone] PCP - General Family Medicine 09/23/21 documented as of this encounter
--- OUTSIDE RECORDS SUMMARY | 2024-12-03 16:09 | XMS_ITS | Encounter Summary ---
Author Organization [employer] Address [address] [place] [address] Care Team Providers Care Help Desk Coordinator Name Role Phone Sofia Montalvo MD Primary Care Provide r Reason for Visit * Reason Comments Med Refill Encounter Details Date Type Department Care Team ([facility] st Contact Info) Description 02/25/[address] [facility] [address] [place], [place] [phone] Sofia Montalvo MD [address] [place], [place] [phone] Lumbar disc disease Social History Tobacco Use Types Packs/Day Years Used Date Smoking Tobacco: Every Day Cigarettes 0.3 1 Passive Smoke Exposure: Current Smokeless Tobacco: Never Alcohol Use Standard Drinks/Week Comments Yes 0 (1 standard drink = 0.6 oz pur e alcohol) weekends Housing Stability Answer Date Recorded What is your housing situation today? I have josé landry 08/01/[address] you li ve. Do you have problems with any of the following? None of the above 08/01/2023 Food Insecurity Answer Date Recorded Within the past 12 months, y ou worried that your food would run out before you got money to buy more: Never True 08/01/2023 Within the past 12 months,th e food you bought just didn't last and you didn't have enough money to get more: Never True Transportation Answer Date Recorded In the past 12 months, has l ack of transportation kept you from medical appts, meetings, work or from getting things needed for daily living? No 08/01/2023 Utilities Answer Date Recorded In the past 12 months, has t he electric, gas, oil or water company threatened to shut off services in your home? No 08/01/2023 Depression Answer Date Recorded Patient Health Questionnaire-2 [...] Encounters Date Type Department Care Team (Late st Contact Info) Description 12/15/2024 1:30 PM EDT Office Visit [facility] [address] [place] [phone] Sofia Montalvo MD [address] [place] [phone] 03/30/2025 10:30 AM EDT Telemedicine [address] [address] documented as of this encounter Visit Diagnoses Diagnosis Lumbar disc disease Other and unspecified disc disorder of lumbar region documented in this encounter Care Teams Help Desk Coordinator Relationship Specialty Start Date End Date Sofia Montalvo MD [address] [place] [phone] PCP - General Family Medicine 09/23/21 documented as of this encounter
--- OUTSIDE RECORDS SUMMARY | 2024-12-03 16:09 | XMS_ITS | Encounter Summary ---
Author Organization [employer] Address [address] [place] [address] Care Team Providers Care Metallurgical Lab Technician Name Role Phone Sofia Montalvo MD Primary Care Provide r Reason for Visit * Reason Comments Med Refill Encounter Details Date Type Department Care Team ([facility] st Contact Info) Description 08/23/2023 Refill [facility] [address] [place], [place] [phone] Sofia Montalvo MD [address] [place], [place] [phone] Other chronic pain Social History Tobacco Use Types Packs/Day Years [...] Description 12/15/2024 1:30 PM EDT Office Visit [facility] [address] [place] [phone] Sofia Montalvo MD [address] [place] [phone] 03/30/2025 10:30 AM EDT Telemedicine [address] [address] documented as of this encounter Visit Diagnoses Diagnosis Other chronic pain documented in this encounter Care Teams Metallurgical Lab Technician Relationship Specialty Start Date End Date Sofia Montalvo MD [address] [place] [phone] PCP - General Family Medicine 09/23/21 documented as of this encounter
--- OUTSIDE RECORDS SUMMARY | 2024-12-03 16:09 | XMS_ITS | Encounter Summary ---
Author Organization [employer] Address [address] 7[address] [place] [address] Care Team Providers Care Channel Program Manager Name Role Phone Sofia Montalvo MD Primary Care Provide r Encounter Details Date Type Department Care Team (Late Contact Info) Description 10/20/2022 Orders Only [facility] [address] [place] [address] [phone] Jasmyne Hutchison MD [address] [place] [address] [phone] Blurry vision (Primary Dx) Social History Tobacco Use Types Packs/Day Years Used Date Smoking Tobacco: Every Day Cigarettes 0.3 1 Passive Smoke Exposure: Never Smokeless Tobacco: Never Alcohol Use Standard Drinks/Week Comments Never 0 (1 standard drink = 0.6 oz pur e alcohol) Comments Unknown Sex and Gender Information Value [...] Description 12/15/2024 1:30 PM EDT Office Visit [facility] [address] [place] [address] [phone] Sofia Montalvo MD [address] [place] [phone] 03/30/2025 10:30 AM EDT Telemedicine [facility] [address] [place] [phone] documented as of this encounter Visit Diagnoses Diagnosis Blurry vision- Primary Other specified visual disturbances documented in this encounter Care Teams Channel Program Manager Relationship Specialty Start Date End Date Sofia Montalvo MD [address] [place] [phone] PCP - General Family Medicine 09/23/21 documented as of this encounter
--- OUTSIDE RECORDS SUMMARY | 2024-12-03 16:09 | XMS_ITS | Encounter Summary ---
Author Organization [employer] Address [address] [place] [address] Care Team Providers Care Home Builder Name Role Phone Sofia Montalvo MD Primary Care Provide r Encounter Details Date Type Department Care Team (Latest Contact Info) Description 12/20/2020 Abstract [facility] Dental, Provider, DDS Social History Tobacco Use Types Packs/Day Years Used Date Smoking Tobacco: Never Assessed Comments Unknown Sex and Gender Information Value [...] Description 12/15/2024 1:30 PM EDT Office Visit [facility] MED[facility]INE [address] [place] [address] [phone] Sofia Montalvo MD [address] [place] [phone] 03/30/2025 10:30 AM EDT Telemedicine [facility] [address] [place] [address] [phone] documented as of this encounter Visit Diagnoses Not on filedocumented in this encounter Care Teams Home Builder Relationship Specialty Start Date End Date Sofia Montalvo MD [address] [place] [address] [phone] PCP - General Family Medicine 09/23/21 documented as of this encounter
--- OUTSIDE RECORDS SUMMARY | 2024-12-03 16:09 | XMS_ITS | Encounter Summary ---
Author Organization [employer] Address [address] [facility] [address] [place] [address] Care Team Providers Care Sales Teacher Name Role Phone Sofia Montalvo MD Primary Care Provide r Reason for Visit * Reason Comments Med Refill Encounter Details Date Type Department Care Team ([facility] st Contact Info) Description 02/18/2024 Refill [facility] [address] [place], [place] [phone] Sofia Montalvo MD [address] [place], [place] [phone] Chronic diarrhea Social History Tobacco Use Types Packs/Day Years [...] Description 12/15/2024 1:30 PM EDT Office Visit [facility] [address] [place] [phone] Sofia Montalvo MD [address] [place] [phone] 03/30/2025 10:30 AM EDT Telemedicine [address] [address] documented as of this encounter Visit Diagnoses Diagnosis Chronic diarrhea Diarrhea documented in this encounter Care Teams Sales Teacher Relationship Specialty Start Date End Date Sofia Montalvo MD [address] [place] [phone] PCP - General Family Medicine 09/23/21 documented as of this encounter
--- OUTSIDE RECORDS SUMMARY | 2024-12-03 16:09 | XMS_ITS | Encounter Summary ---
Author Organization [employer] Address [address] [place] [address] Care Team Providers Care Regulatory Attorney Name Role Phone Sofia Montalvo MD Primary Care Provide r Encounter Details Date Type Department Care Team ([facility] st Contact Info) Description 03/13/2024 Telephone [facility] MEDICINE [address] [place], [place] [phone] Sofia Montalvo MD [address] [place], [place] [phone] Social History Tobacco Use Types Packs/Day Years Used Date Smoking Tobacco: Every Day Cigarettes 0.3 1 Passive Smoke Exposure: Current Smokeless Tobacco: Never Alcohol Use Standard Drinks/Week Comments Yes 0 (1 standard drink = 0.6 oz pur e alcohol) weekends Housing Stability Answer Date Recorded What is your housing situation today? I have josébrett landry 08/01/[address] you [...] Description 12/15/2024 1:30 PM EDT Office Visit [facility] [address] [place] [phone] Sofia Montalvo MD [address] [place] [phone] 03/30/2025 10:30 AM EDT Telemedicine [facility] [address] [place] [phone] documented as of this encounter Visit Diagnoses Not on filedocumented in this encounter Care Teams Regulatory Attorney Relationship Specialty Start Date End Date Sofia Montalvo MD [address] [place] [phone] PCP - General Family Medicine 09/23/21 documented as of this encounter
--- OUTSIDE RECORDS SUMMARY | 2024-12-03 16:09 | XMS_ITS | Encounter Summary ---
Author Organization [employer] [facility] Address [address] [place] [address] Care Team Providers Care Feed Handler Name Role Phone Sofia Montalvo MD Primary Care Provide r Encounter Details Date Type Department Care Team (Latest Contact Info) Description 01/21/2019 Abstract [facility] CONVERSIONS Dental, Provider, DDS Social History [...] Description 12/15/2024 1:30 PM EDT Office Visit [facility] [address] [place] [phone] Sofia Montalvo MD [address] [place] [phone] 03/30/2025 10:30 AM EDT Telemedicine [facility] [address] [place] [address] [phone] documented as of this encounter Visit Diagnoses Not on filedocumented in this encounter Care Teams Feed Handler Relationship Specialty Start Date End Date Sofia Montalvo MD [address] [place] [address] [phone] PCP - General Family Medicine 09/23/21 documented as of this encounter
--- OUTSIDE RECORDS SUMMARY | 2024-12-03 16:09 | XMS_ITS | Encounter Summary ---
Author Organization [facility] Address [address] [place] [address] Care Team Providers Care Surfboard Maker Name Role Phone Sofia Montalvo MD Primary Care Provide r Encounter Details Date Type Department Care Team ([facility] Contact Info) Description 07/06/2023 Abstract [facility] [address] [place] [phone] Dayana Erazo Social History Tobacco Use Types Packs/Day Years [...] Upcoming Encounters Date Type Department Care Team ([facility] Contact Info) Description 12/15/2024 1:30 PM EDT Office Visit [facility] [address] [place] [address] [phone] Sofia Montalvo MD [address] [place] [phone] 03/30/2025 10:30 AM EDT Telemedicine [facility] [address] [place] [address] [phone] documented as of this encounter Procedures Procedure Name Priority Date/Time Associated Diagnosis Comments COLPOSCOPY Routine 06/19/2023 COLONOSCOPY Routine 04/04/2023 BIOPSY CERVIX Routine 01/02/2022 HM PAP/HPV Routine 01/02/2022 BIOPSY CERVIX Routine 06/07/2021 documented in this encounter Results * Colposcopy (06/19/2023) Historical Provider IN CLINIC/BEDSIDE ORDERAB LES Final Result * Colonoscopy (04/04/2023) Colonoscopy Normal Normal Sherri Britton MD HEALTH MAINTENANCE Final Result * Biopsy cervix (01/02/2022) [facility] Provider IN CLINIC/BEDSIDE ORDERAB LES Final Result * Pap Smear (01/02/2022) Pap Negative for intraephithelial lesion or malignancy Negative for intraephithelial lesion or malignancy, Other HPV Detected Alli Matrínez MD HEALTH MAINTENANCE Final Result * Biopsy cervix (06/07/2021) Historical Provider IN CLINIC/BEDSIDE ORDERAB LES Final Result documented in this encounter Visit Diagnoses Not on filedocumented in this encounter Care Teams Surfboard Maker Relationship Specialty Start Date End Date Sofia Montalvo MD [address] [place] [phone] PCP - General Family Medicine 09/23/21 documented as of this encounter
--- OUTSIDE RECORDS SUMMARY | 2024-12-03 16:09 | XMS_ITS | Encounter Summary ---
Author Organization [employer] Address [address] [place] [address] Care Team Providers Care Order Runner Name Role Phone Sofia Montalvo MD Primary Care Provide r Reason for Visit * Reason Comments Med Refill Encounter Details Date Type Department Care Team ([facility] Contact Info) Description 09/29/2022 Refill [facility] MED & PEDS [address] [place], [place] [phone] Mandie Burton, ANP [address] [place] [phone] Social History Tobacco Use Types Packs/Day Years [...] not to disclose 2021 10:19 AM EDT COVID-19 Exposure Response Date Recorded In the last 10 days, have yo u been in contact with someone who was confirmed or suspected to have Coronavirus/COVID-19? No / Unsure 09/14/2022 1:58 PM EST documented as of this encounter Plan of Treatment Upcoming Encounters Date Type Department Care Team ([facility] Contact Info) Description 12/15/2024 1:30 PM EDT Office Visit [facility] MEDICINE [address] [place], [place] [phone] Sofia Montalvo MD [address] [place] [address] 03/30/2025 10:30 AM EDT Telemedicine [facility] MEDICINE [address] [place] [phone] documented as of this encounter Visit Diagnoses Not on filedocumented in this encounter Care Teams Order Runner Relationship Specialty Start Date End Date Sofia Montalvo MD [address] [place] [phone] PCP - General Family Medicine 09/23/21 documented as of this encounter
--- OUTSIDE RECORDS SUMMARY | 2024-12-03 16:10 | XMS_ITS | Encounter Summary ---
Author Organization [employer] Address [address] [place] [address] Care Team Providers Care Hardness Tester Name Role Phone Sofia Montalvo MD Primary Care Provide r Reason for Visit * Reason Comments Med Refill Encounter Details Date Type Department Care Team ([facility] st Contact Info) Description 12/01/2024 Refill [facility] MEDICINE [address] [place], [place] [phone] Sofia Montalvo MD [address] [place], [place] [phone] Chronic obstructive pulmonary disease, unspecified COPD type (CMS/HCC) Social History Tobacco Use Types Packs/Day Years [...] Description 12/15/2024 1:30 PM EDT Office Visit [facility] MEDICINE [address] [place] [phone] Sofia Montalvo MD [address] [place] [phone] 03/30/2025 10:30 AM EDT Telemedicine [facility] [address] [place] [phone] documented as of this encounter Visit Diagnoses Diagnosis Chronic obstructive pulmonary disease, unspecified COPD type (CMS/HCC) documented in this encounter Care Teams Hardness Tester Relationship Specialty Start Date End Date Sofia Montalvo MD [address] [place] [phone] PCP - General Family Medicine 09/23/21 documented as of this encounter
--- OUTSIDE RECORDS SUMMARY | 2024-12-03 16:10 | XMS_ITS | Encounter Summary ---
Author Organization [employer] Address [address] [place] [address] Care Team Providers Care Director Custom Name Role Phone Sofia Montalvo MD Primary Care Provide r Reason for Visit * Reason Comments Med Refill Encounter Details Date Type Department Care Team ([facility] st Contact Info) Description 11/29/2024 Refill [facility] MED[facility] [address] [place], [place] [phone] Sofia Montalvo MD [address] [place], [place] [phone] Essential hypertension; Iron deficiency anemia, unspecified iron deficiency anemia type Social History Tobacco Use Types Packs/Day Years [...] Description 12/15/2024 1:30 PM EDT Office Visit [address] [phone] Sofia Montalvo MD [address] [place] [phone] 03/30/2025 10:30 AM EDT Telemedicine [address] [phone] documented as of this encounter Visit Diagnoses Diagnosis Essential hypertension Unspecified essential hypertension Iron deficiency anemia, unspecified iron deficiency anemia type documented in this encounter Care Teams Director Custom Relationship Specialty Start Date End Date Sofia Montalvo MD [address] [place] [phone] PCP - General Family Medicine 09/23/21 documented as of this encounter
--- OUTSIDE RECORDS SUMMARY | 2024-12-03 16:10 | XMS_ITS | Encounter Summary ---
Author Organization [email or web address] Address [address] [place] [address] Care Team Providers Care Machine Skiver Name Role Phone Sofia Montalvo MD Primary Care Provide r Reason for Visit * Reason Onset Date Comments Durable Medical Equipment 12/02/2024 Encounter Details Date Type Department Care Team ([facility] Contact Info) Description 12/02/2024 Telephone [facility] MEDICINE [address] [place], [place] [phone] Sofia Montalvo MD [address] [place], [place] [phone] Durable Medical Equipment Social History Tobacco Use Types Packs/Day Years [...] AM EDT documented as of this encounter Miscellaneous Notes * Telephone Encounter - Wally Izaguirre - 12/02/2024 11:14 AM EST Tc from pt requesting pampers size large , gloves , bed pads , wipes as she states it needs to be sent to [facility] documented in this encounter Plan of Treatment Upcoming Encounters Date Type Department Care Team (Late st Contact Info) Description 12/15/2024 1:30 PM EDT Office Visit [facility] MED[facility] [address] [place] [phone] Sofia Montalvo MD [address] [place] [phone] 03/30/2025 10:30 AM EDT Telemedicine [facility] [address] [place] [phone] documented as of this encounter Visit Diagnoses Not on filedocumented in this encounter Care Teams Machine Skiver Relationship Specialty Start Date End Date Sofia Montalvo MD [address] [place] [phone] PCP - General Family Medicine 09/23/21 documented as of this encounter
--- OUTSIDE RECORDS SUMMARY | 2024-12-03 16:10 | XMS_ITS | Clinical Summary ---
Author Organization [employer] Address [address] [place] [address] Care Team Providers Care Owner Operator Name Role Phone Sofia Montalvo MD Primary Care Provide r Allergies Active Allergy Reactions Criticality Noted Date Comments Ibuprofen 05/29/2017 Medications pregabalin (Lyrica) 150 MG capsule Take 1 capsule by mouth every 12 (twelve) hours. 06/13/20 22 Active Blood Pressure Monitor kitIndications: Essential hypertension Use as directed 3x/week 1 kit 04/04/20 23 Active Blood Glucose Monitoring Suppl (ONE TOUCH ULTRA 2) w/Device kit TEST BLOOD SUGAR DAILY DIRECTED 1 kit 06/07/20 23 Active OneTouch Delica Lancets 33G misc TEST BLOOD SUGAR DAILY DIRECTED 100 each 5 06/07/20 23 Active zolpidem (Ambien) 10 MG tablet Take by mouth if needed at bedtime. Active albuterol (2.5 MG/3ML) 0.083% nebulizer solutionIndicat ions:COPD with acute exacerbation (CMS/HCC) Take 3 mL (2.5 mg) by nebulization every 4 (four) hours if needed for wheezing. 75 mL 3 11/05/19 24 Active simvastatin (Zocor) 40 MG tabletIndicatio ns:Hypertriglyc eridemia Take 1 tablet (40 mg) by mouth at bedtime. 30 tablet 11 01/17/20 24 2024 Active cetirizine (ZyrTEC) 10 MG tablet TAKE 1 TABLET BY MOUTH EVERYDAY AT NOON 90 tablet 3 02/14/20 24 Active cholecalciferol VITAMIN D (Vitamin D-3) 50 MCG (2000 UT) tablet Take 1 tablet (50 mcg) by mouth Once per day. 90 tablet 3 03/13/20 24 Active ascorbic acid (Vitamin C) 250 MG tablet Take 1 tablet (250 mg) by mouth every other day. 90 tablet 1 03/13/20 24 Active hydrocortisone (Anusol-HC) 2.5 % rectal creamIndication s:Hemorrhoids, unspecified hemorrhoid type INSERT INTO THE RECTUM TWICE A DAY 28 g 1 05/28/20 24 Active Gas Relief Extra Strength 125 MG chewable tabletIndicatio ns:Bloating TAKE 1 TABLET BY MOUTH 4 TIMES A DAY IN THE MORNING, AT NOON, IN THE EVENING, AND AT BEDTIME NEEDED FOR GAS 60 tablet 1 06/19/20 24 Active budesonide (Pulmicort) 0.5 MG/2ML nebulizer solution Take 0.5 mg by nebulization in the morning and at bedtime. 07/09/20 24 Active clonazePAM (KlonoPIN) 0.5 MG tablet Take 0.5 mg by mouth if needed in the morning and at bedtime for anxiety. 06/13/20 24 Active doxepin (SINEquan) 50 MG capsule Take 50 mg by mouth at bedtime. 06/16/20 24 Active escitalopram (Lexapro) 10 MG tablet Take 1 tablet by mouth Once per day. 07/09/20 24 Active naloxone (Narcan) 4 mg/0.1 mL nasal spray Administer 1 spray into affected nostril(s) if needed for opioid reversal or respiratory depression. Repeat in alternate nostril in 2-3 minutes if needed. Seek medical attention immediately even if patient responds. 05/02/20 24 Active clotrimazole (Lotrimin) 1 % cream APPLY TOPICALLY TWICE DAILY IN THE MORNING AND AT BEDTIME NEEDED FOR RASH 30 g 2 08/15/20 24 Active albuterol (Ventolin HFA) 108 (90 Base) MCG/ACT inhalerIndicati ons:Mild intermittent asthma without complication INHALE 2 PUFFS BY MOUTH FOUR TIMES DAILY 18 g 2 08/26/20 24 Active ketoconazole (NIZOral) 2 % shampooIndicati ons:Seborrheic dermatitis of scalp APPLY TO SCALP AND LEAVE ON FOR 5 MINUTES THEN RINSE OFF TWICE A WEEK 120 mL 1 09/01/20 24 Active acetaminophen (Tylenol 8 Hour) 650 MG ER tabletIndicatio ns:Lumbar disc disease Take 2 tablets (1,300 mg) by mouth every 8 (eight) hours if needed for mild pain. TAKE 1 TABLET BY MOUTH EVERY 8 HOURS NEEDED FOR MILD PAIN OR FOR MODERATE PAIN 60 tablet 3 09/10/20 24 Active pantoprazole (Protonix) 40 MG EC tabletIndicatio ns:Chronic diarrhea Take 1 tablet (40 mg) by mouth before breakfast and before evening meal. Do not crush, chew, or split. 60 tablet 11 09/10/20 24 2024 Active polycarbophil (Fibercon) 625 MG tabletIndicatio ns:Chronic diarrhea Take 1 tablet (625 mg) by mouth 2 times daily. 60 tablet 11 09/10/20 24 2024 Active loperamide (Imodium) 2 MG capsuleIndicati ons:Chronic diarrhea Take 1 capsule (2 mg) by mouth if needed in the morning, at noon, in the evening, and at bedtime for diarrhea. 30 capsule 1 09/10/20 24 Active metFORMIN (Glucophage) 500 MG tabletIndicatio ns:Type 2 diabetes mellitus with other specified complication, unspecified whether salvage determiner insulin use (CMS/[facility]) TAKE 1 TABLET BY MOUTH TWICE DAILY IN THE MORNING AND IN THE EVENING 180 tablet 1 09/30/20 24 Active chlorthalidone (Hygroton) 50 MG tabletIndicatio ns:Essential hypertension TAKE 1 TABLET BY MOUTH EVERYDAY AT NOON 30 tablet 5 10/29/19 25 Active losartan (Cozaar) 100 MG tabletIndicatio ns:Essential hypertension TAKE 1 TABLET BY MOUTH EVERYDAY AT NOON 90 tablet 11/03/19 25 Active lactulose (Chronulac) 10 GM/15ML solutionIndicat ions:Drug induced constipation TAKE 15 ML BY MOUTH TWICE DAILY 150 mL 2 11/28/19 25 Active atenolol (Tenormin) 50 MG tabletIndicatio ns:Essential hypertension TAKE 1 TABLET BY MOUTH EVERY EVENING 30 tablet 5 12/01/19 25 Active ferrous gluconate (Ferate) 240 (27 Fe) MG tabletIndicatio ns:Iron deficiency anemia, unspecified iron deficiency anemia type TAKE 1 TABLET BY MOUTH EVERY OTHER DAY IN THE MORNING 15 tablet 5 12/01/19 25 Active fluticasone (Flonase) 50 MCG/ACT nasal sprayIndication s:Chronic obstructive pulmonary disease, unspecified COPD type (CMS/HCC) USE 1 SPRAY IN EACH NOSTRIL TWICE DAILY 48 g 12/02/19 25 Active atenolol (Tenormin) 50 MG tabletIndicatio ns:Essential hypertension TAKE 1 TABLET BY MOUTH EVERY EVENING 30 tablet 5 05/28/20 24 2024 Discontinued ferrous gluconate (Ferate) 240 (27 Fe) MG tabletIndicatio ns:Iron deficiency anemia, unspecified iron deficiency anemia type TAKE 1 TABLET BY MOUTH EVERY OTHER DAY IN THE MORNING 15 tablet 5 05/28/20 24 2024 Discontinued fluticasone (Flonase) 50 MCG/ACT nasal sprayIndication s:Chronic obstructive pulmonary disease, unspecified COPD type (CMS/HCC) USE 1 SPRAY IN EACH NOSTRIL TWICE DAILY 48 g 07/16/20 24 2024 Discontinued lactulose (Chronulac) 10 GM/15ML solution Take 15 mL by mouth 2 times daily. 08/08/20 24 2024 Discontinued Active Problems Problem Noted Date Diagnosed Date Sebaceous cyst 09/10/2024 Drug-induced constipation 06/30/2024 Assessment & Plan (06/30/2024 2:08 PM EDT): Increase fiber and water on diet I will prescribed lactulose for short term relief I ask patient to reach back to her GI Allergic reaction 01/17/2024 Assessment & Plan (01/18/2024 2:08 PM EDT): I will refer patient to patient account specialist for evaluation of face, arm and leg swelling possible allergic reaction??? Also patient with chronic allergic rhinitis and asthma Hypertriglyceridemia 01/17/2024 Stage 3a chronic kidney disease 01/17/2024 Assessment & Plan (01/18/2024 2:07 PM EDT): Nephrology referral done I advise good blood pressure control, weight reduction and avoid nephrotoxic medications like NSAIDs Class 1 obesity with serious comorbidity and body mass index (BMI) of 32.0 to 32.9 in adult 01/17/2024 Assessment & Plan (01/18/2024 2:07 PM EDT): Today extensive discussion was done about life style modifications I advise healthy diet (low calorie) and cardiovascular exercise Seborrheic dermatitis of scalp 01/17/2024 Irritable bowel syndrome with diarrhea Chronic diarrhea 12/14/2023 COVID-19 10/15/2023 Assessment & Plan (10/15/2023 7:27 PM EST): Pt w respiratory symptoms consistent w viral infection c/w asthma/COPD exacerbation w bl wheezing Here COVID 19 + ,flu and strep neg Chem 05/2023 Cr wnl, LFTS wnl in 12/2022 -pt is a 63 pt w obesity, COPD, asthma,HTN,DM2 w + COVID 19 within window x tx -normal renal function from last labs -Px paxlovid -supportive tx -hydration -refilled her asthma meds -prescribed prednisone for 5 days and advised to hold on advair while on PO steroids and then resume -isolation x at least 5 days on day 6 can come out only if feeling better w no contagious symptoms discussed today but with N95 for at least 10 days from infection. -alarm signs and symptoms discussed -advised that once is feeling better in next 2 to 3 weeks can come to vaccine clinic to get vaccine booster -Check interaction w px -to hold statins for 8 days ,also to hold Ambien while on tx on paxlovid. Pain due to onychomycosis of nail 08/02/2023 Type 2 diabetes mellitus wit hout complication, without long-term current use of insulin 08/02/2023 Assessment & Plan (06/30/2024 2:10 PM EDT): Diabetes is: controlled - Lab Results Component Value Date HGBA1C 6.3 (A) 06/30/2024 HGBA1C 6.0 01/17/2024 HGBA1C 5.9 08/02/2023 - Lab Results Component Value Date MICROALBUR 4.8 08/07/2022 CREATININE 0.90 02/11/2024 -Changes: none - Diabetic eye exam:pending - Diabetic foot exam:pending - Continue lifestyle modifications - Continue current medications - Follow up: 3 months Assessment & Plan (05/08/2024 2:25 PM EDT): Diabetes is: controlled - Lab Results Component Value Date HGBA1C 6.0 01/17/2024 HGBA1C 5.9 08/02/2023 HGBA1C 5.8 04/04/2023 - Lab Results Component Value Date MICROALBUR 4.8 08/07/2022 CREATININE 0.90 02/11/2024 -Changes: none - Diabetic eye exam:up to date - Diabetic foot exam:pending - Continue lifestyle modifications - Continue current medications - Follow up: 3 months Assessment & Plan (01/17/2024 1:27 PM EDT): Diabetes is: controlled - Lab Results Component Value Date HGBA1C 6.0 01/17/2024 HGBA1C 5.9 08/02/2023 HGBA1C 5.8 04/04/2023 - Lab Results Component Value Date MICROALBUR 4.8 08/07/2022 CREATININE 1.18 12/24/2023 -Changes: none - Diabetic eye exam:up to date - Diabetic foot exam:pending - Continue lifestyle modifications - Continue current medications - Follow up: 3 months Assessment & Plan (08/02/2023 2:13 PM EDT): Lab Results Component Value Date HGBA1C 5.9 08/02/2023 HGBA1C 5.8 04/04/2023 HGBA1C 5.5 08/07/2022 - Lab Results Component Value Date MICROALBUR 4.8 08/07/2022 CREATININE 0.81 05/08/2023 - Continue lifestyle modifications - Continue current medications Nail abnormality 07/03/2023 Smoker 07/03/2023 Hemorrhoids 05/08/2023 Assessment & Plan (05/08/2023 1:34 PM EDT): s/p colonoscopy last month use hydrocortisone rectal cream prn Other chronic pain 05/08/2023 Assessment & Plan (05/08/2023 1:34 PM EDT): refill for ibuprofen given to pt discussed with patient regarding potential side effects including renal and GI toxicity, constipation, and fluid retention. FU with PCP Prediabetes 04/04/2023 Assessment & Plan (11/05/2023 12:02 PM EST): Today extensive discussion was done about life style modifications I advise healthy diet (low calorie) and cardiovascular exercise Syncope 04/04/2023 Lower extremity edema 04/04/2023 Assessment & Plan (07/04/2023 4:42 PM EDT): Possible cause could be the amlodipine I will switch it, instead of amlodipine 10mg daily patient will start with chlorthalidone 50mg daily Assessment & Plan (05/08/2023 1:35 PM EDT): It could be related to ibuprofen or amlodipine, however lower extremity DVT US will be orderd and FU with pt Venous insufficiency 04/04/2023 Assessment & Plan (04/04/2023 3:06 PM EDT): LE edema likely venous insufficiency referral done today Anemia 04/04/2023 Assessment & Plan (05/08/2023 1:34 PM EDT): to fu with PCP, order labs Foot pain 04/03/2023 Chronic pain of right knee 04/03/2023 Inflammation of sacroiliac joint 04/03/2023 Multiple joint pain 04/03/2023 Plantar fasciitis 04/03/2023 Visual impairment 04/03/2023 Vaginal wall prolapse 04/03/2023 Physiological tremor 07/16/2020 Arthritis of right knee 05/25/2020 Lumbar disc disease 07/02/2018 Assessment & Plan (06/30/2024 2:09 PM EDT): Continue to follow with pain management for her pump refills She may use also acetaminophen PRN C/w lyrica as prescribed Assessment & Plan (05/08/2024 2:28 PM EDT): Patient is being follow very closely by pain management, she has a pain medication pump, she had also a stimulator, I explain to her she had an ablation done, I reviewed and she has extra pain meds and steroid taper prescribed but she has not take it yet I explain how to take it, f/u with pain specialist Skin pruritus 05/10/2018 Knee pain 01/07/2015 Nondependent opioid abuse 12/07/2014 Gastroesophageal reflux disease 09/23/2014 Allergic rhinitis 09/23/2014 Kidney stone 04/25/2013 Mixed anxiety and depressive disorder 06/13/2012 Tobacco dependence syndrome 06/13/2012 Acquired hypothyroidism 04/05/2012 Chronic obstructive lung disease 04/05/2012 Essential hypertension 04/05/2012 Assessment & Plan (06/30/2024 2:07 PM EDT): I advise - Aerobic exercise to reduce BP. Initial goal of 30 min walk 3-5x/week. Increase as tolerated. - low-sodium diet (goal: <2g/day) and heart healthy diet such as DASH to reduce BP and prevent ASCVD. - Home BP monitoring 1-2 x day with goal of <140/90. - Seek immediate medical attention for chest pain, palpitations, SOB, syncope, or sudden changes in mental status. - Do not change or discontinue current prescriptions without first consulting health care provider Assessment & Plan (05/08/2024 2:24 PM EDT): It was advise: - Aerobic exercise to reduce BP. Initial goal of 30 min walk 3-5x/week. Increase as tolerated. - low-sodium diet (goal: <2g/day) and heart healthy diet such as DASH to reduce BP and prevent ASCVD. - Home BP monitoring 1-2 x day with goal of <140/90. - Seek immediate medical attention for chest pain, palpitations, SOB, syncope, or sudden changes in mental status. - Do not change or discontinue current prescriptions without first consulting health care provider Assessment & Plan (01/18/2024 2:06 PM EDT): It was advise: - low-sodium diet (goal: <2g/day) and heart healthy diet such as DASH to reduce BP and prevent ASCVD. - Home BP monitoring 1-2 x day with goal of <140/90. - Seek immediate medical attention for chest pain, palpitations, SOB, syncope, or sudden changes in mental status. - Do not change or discontinue current prescriptions without first consulting health care provider Assessment & Plan (12/14/2023 4:37 PM EST): - Aerobic exercise to reduce BP. Initial goal of 30 min walk 3-5x/week. Increase as tolerated. - low-sodium diet (goal: <2g/day) and heart healthy diet such as DASH to reduce BP and prevent ASCVD. - Home BP monitoring 1-2 x day with goal of <140/90. - Seek immediate medical attention for chest pain, palpitations, SOB, syncope, or sudden changes in mental status. - Do not change or discontinue current prescriptions without first consulting health care provider Assessment & Plan (11/05/2023 12:00 PM EST): Maintenance: BMP: up to date Lipid Panel: up to date - Aerobic exercise to reduce BP. Initial goal of 30 min walk 3-5x/week. Increase as tolerated. - low-sodium diet (goal: <2g/day) and heart healthy diet such as DASH to reduce BP and prevent ASCVD. - Home BP monitoring 1-2 x day with goal of <140/90. - Seek immediate medical attention for chest pain, palpitations, SOB, syncope, or sudden changes in mental status. - Do not change or discontinue current prescriptions without first consulting health care provider Assessment & Plan (08/02/2023 2:13 PM EDT): - Aerobic exercise to reduce BP. Initial goal of 30 min walk 3-5x/week. Increase as tolerated. - low-sodium diet (goal: <2g/day) and heart healthy diet such as DASH to reduce BP and prevent ASCVD. - Home BP monitoring 1-2 x day with goal of <140/90. - Seek immediate medical attention for chest pain, palpitations, SOB, syncope, or sudden changes in mental status. - Do not change or discontinue current prescriptions without first consulting health care provider Assessment & Plan (07/04/2023 4:43 PM EDT): -Instead of amlodipine patient will start chlorthalidone - Aerobic exercise to reduce BP. Initial goal of 30 min walk 3-5x/week. Increase as tolerated. - low-sodium diet (goal: <2g/day) and heart healthy diet such as DASH to reduce BP and prevent ASCVD. - Home BP monitoring 1-2 x day with goal of <140/90. - Seek immediate medical attention for chest pain, palpitations, SOB, syncope, or sudden changes in mental status. - Do not change or discontinue current prescriptions without first consulting health care provider Assessment & Plan (04/11/2023 4:45 PM EDT): Today elevated patient is clinically asymptomatic, I advise low Na diet I increase her amlodipine to 10mg daily RTC 2 weeks for nurse visit with BP log VNA services will also be set up for patient Arthropathy 04/05/2012 Asthma 04/05/2012 Disorder of skeletal muscle 04/05/2012 Pure hypercholesterolemia 04/05/2012 Resolved Problems Problem Noted Date Diagnosed Date Resolved Date COPD with acute exacerbation 11/05/2023 04/29/2024 Dyspnea 10/17/2022 04/29/2024 Overview (10/17/2022): Stress test 09/21/22 via cardiology w/ no ischemia Encounters Date Type Department Care Team Description 12/02/2024 Telephone [facility] [address] [place] [address] Sofia Montalvo MD Durable Medical Equipment 12/01/2024 Refill [facility] [address] [place] [address] Sofia Montalvo MD Chronic obstructive pulmonary disease, unspecified COPD type ([facility]) 11/29/2024 Refill [facility] [address] [place] [address] Sofia Montalvo MD Essential hypertension; Iron deficiency anemia, unspecified iron deficiency anemia type 11/28/2024 Refill [facility] [address] [place] [address] Sofia Montalvo MD Chronic diarrhea 11/27/2024 Refill [facility] [address] [place] [address] Sofia Montalvo MD Drug induced constipation 11/20/2024 Telephone [facility] [address] [place] [address] Sofia Montalvo MD Results 11/20/2024 Orders Only [facility] [address] [place] [address] Sofia Montalvo MD Pulmonary nodules (Primary Dx); Atelectasis 11/18/2024 Telephone [facility] [address] [place] [address] Sofia Montalvo MD Nurse Triage 11/05/2024 Orders Only [facility] External Provider, [facility] 11/02/2024 Refill [facility] [address] [place] [address] Sofia Montalvo MD Essential hypertension 10/30/2024 10:30 AM EST Telemedicine [facility] [address] [place] [address] Hien Yoon PharmD Type 2 diabetes mellitus without complication, without long-term current use of insulin ([facility]) (Primary Dx); Essential hypertension; Chronic diarrhea; Drug-induced constipation 10/29/2024 Refill [facility] [address] [place] [address] Sofia Montalvo MD Essential hypertension 10/21/2024 Telephone [facility] [address] [place] [address] Lore Larsen MA [employer]urable Medical Equipment 10/16/2024 Telephone [facility] [address] [place] [address] Caitlin Roland, RN Results 10/13/2024 Telephone [facility] [address] [place] [address] Sofia Montalvo MD Durable Medical Equipment 10/09/2024 Telephone [facility] [address] [place] [address] Sofia Montalvo MD Pre-op Exam 09/30/2024 Refill [facility] [address] [place] [address] Sofia Montalvo MD Type 2 diabetes mellitus with other specified complication, unspecified whether halfway insulin use (CMS/HCC) 09/23/2024 Orders Only [facility] [address] [place] [address] Nida Thorne DO Abnormal abdominal ultrasound (Primary Dx) 09/12/2024 Orders Only [facility] External Provider, [facility] 09/10/2024 3:15 PM EST Telemedicine [address] [address] Sofia Montalvo MD Sebaceous cyst (Primary Dx); Lumbar disc disease; Chronic diarrhea; Irritable bowel syndrome with diarrhea 09/10/2024 Travel 09/10/[address] [address] Sofia Montalvo MD 09/10/[address] [address] Lore Larsen MA [employer]urable Medical Equipment 09/09/2024 1:00 PM EST Office Visit [facility] [address] [place] [address] Marshall, Celina, OD Diabetes type 2, no ocular involvement ([facility]) (Primary Dx); Combined forms of age-related cataract of both eyes; Tortuous retinal veins; Presbyopia 09/09/2024 Travel 09/08/[address] [address] Lore Larsen MA Chart Prep 09/03/2024 Telephone [facility] [address] [place] [phone] Lore Larsen MA Durable Medical Equipment from Last 3 Months Immunizations Name Administration Dates Next Due Hep B, adult 09/05/2018,01/23/2012,12/13/2011 Influenza injectable quadriv alent IIV4 with preservative 06/26/2019,07/18/2018,06/28/2016,08/25 Influenza injectable quadriv alent preservative free 08/02/2023,07/28/2021,06/25/2020,08/09 Influenza, IIV3, injectable 07/27/2022, 4,08/04/2011 Influenza, Split (incl. sondra fied surface antigen) 08/05/2013,07/16/2012 Pneumococcal Conjugate PCV 20 12/03/2023 Pneumococcal Polysaccharide PPSV23 08/04/2011 RSV Bivalent 12/03/2023 TD (adult), 2 Lf tetanus tox oid, preservative free, adsorbed 10/19/2020 Tdap 12/03/2023,07/04/2010 Zoster, Recombinant 05/23/2021,03/21/2021 Social History Tobacco Use Types Packs/Day Years Used Date Smoking Tobacco: Every Day Cigarettes 0.3 1 Passive Smoke Exposure: Current Smokeless Tobacco: Never Tobacco Cessation:Ready to Q uit: Not Asked; Counseling Given: Not Answered Alcohol Use Standard Drinks/Week Comments Yes 0 [...] the past 12 months, has t he mobintent, gas, oil or water company threatened to [...] not to disclose 2021 10:19 AM EDT Last Filed Vital Signs Vital Sign Reading Time Taken Comments Blood Pressure 138/78 07/14/2024 11:30 AM EDT Pulse 53 07/14/2024 11:30 AM EDT Temperature 36.3 ??C (97.4 ??F) 06/30/2024 1:12 PM ED T Respiratory Rate 18 06/30/2024 1:12 PM EDT Oxygen Saturation 97% 06/30/2024 1:12 PM EDT Inhaled Oxygen Concentration - - Weight 79.6 kg (175 lb 6.4 oz) 06/30/2024 1:12 P M EDT Height 157.5 cm (5' 2 ) 06/30/2024 1:12 PM EDT Body Mass Index 32.08 06/30/2024 1:12 PM EDT Plan of Treatment Upcoming Encounters Date Type Department Care Team (Late st Contact Info) Description 12/15/2024 1:30 PM EDT Office Visit [facility] [address] [place] [phone] Sofia Montalvo MD [address] [place] [address] 03/30/2025 10:30 AM EDT Telemedicine [facility] [address] [place] [phone] Health Maintenance Due Date Last Done Comments CT Colonography 1959 Dental X-Ray: Bitewings 1959 Dental X-Ray: Full Mouth 1959 FIT DNA/Cologuard 1959 FIT 1959 FOBT 1959 Sigmoidoscopy 1959 Diabetes: Foot Exam 1969 Alcohol/Substance Use Screening 1971 Hepatitis C Screening 1977 Hepatitis A Vaccines (1 of 2 - Risk 2-dose series) 1978 Dental Oral Exam 03/13/2023 09/11/2022 Dental Prophylaxis 03/13/2023 09/11/2022 SDOH Screening 04/04/2024 04/04/2023 Depression Screening 05/08/2024 05/08/2023, 05/08/20 23 COVID-19 Vaccine ( season) 2024 10/05/2021, 02/11/2021, 01/14/2021 Influenza Vaccine (#1) 2024 , 07/27/2022, 07/28/2021, Additional history exists Lipid Panel 12/23/2024 12/24/2023, 07/10, 09/27/2021, Additional history exists Diabetes: Hemoglobin A1C 12/28/2024 024, 01/17/2024, 08/02/2023, Additional history exists Diabetes: Urine Protein Screening 02/17/2025 02/18/2024, 08/07/2022, 09/27/2021, Additional history exists Mammogram 09/12/2025 09/12/2024, 06/09, 06/21/2022, Additional history exists Tobacco Screening 09/19/2025 09/19/2024 Eye Exam 09/09/2026 09/09/2024, 12/2023, 09/09/2024, Additional history exists Cervical Cancer Screening 07/30/2027 HPV/Cotest 07/30/2027 07/30/2024, 12/07, 01/02/2022, Additional history exists Pap Smear 07/30/2027 07/30/2024, 04/07, 01/02/2022 Colonoscopy 04/04/2033 04/04/2023 Colorectal Cancer Screening 04/04/2033 DTaP/Tdap/Td Vaccines (4 - Td or Tdap) 12/03/2033 12/03/2023, 10/19/2020, 07/04/2010 Hepatitis B Vaccines Completed 09/05/2018, 01/23/2012, 12/13/2011 Zoster Vaccines Completed 05/23/2021, 03/21/2021 Pneumococcal Vaccine: 50+ Years Completed 12/03/2023, 08/04/2011 RSV Patients and Patients Aged 60 years or older Completed 12/03/2023 HIB Vaccines Aged Out No longer eligi ble based on patient's age to complete this topic HPV Vaccines Aged Out No longer eligi ble based on patient's age to complete this topic IPV Vaccines Aged Out No longer eligi ble based on patient's age to complete this topic Meningococcal Vaccine Aged Out No travis pam eligible based on patient's age to complete this topic RSV under 20 months Aged Out No longe r eligible based on patient's age to complete this topic Rotavirus Vaccines Aged Out No longer eligible based on patient's age to complete this topic Procedures Procedure Name Priority Date/Time Associated Diagnosis Comments CT ABDOMEN PELVIS WO CONTRAST Routine 11/05/2024 3:18 PM EST US ABDOMEN COMPLETE Routine 10/13/2024 1 0:29 AM EST Abnormal abdominal ultrasound BD DEXA AXIAL Routine 09/12/2024 1:30 PM EST BI MAMMOGRAM SCREENING TOMOSYNTHESIS BILATERAL Routine 09/12/2024 1:15 PM EST FUNDUS PHOTOS - OU - BOTH EYES Routine 09/09/2024 1:00 PM EST Tortuous retinal veins THINPREP IMAGING PAP AND HPV MRNA E6/E7 WITH REFLEX TO HPV 16,18/45 Routine 07/30/2024 2:16 PM EDT POCT GLYCATED HEMOGLOBIN, TOTAL Routine 06/30/2024 1:14 PM EDT Type 2 diabetes mellitus without complication, without long-term current use of insulin ([facility]) CREATININE, RANDOM URINE Routine 02/18/2024 1:28 PM EDT LIPID PANEL, STANDARD Routine 12/24/2023 12:56 PM EDT Essential hypertension HM COLONOSCOPY Routine 04/04/2023 PROPHYLAXIS - ADULT Routine 09/11/2022 1 :00 PM EST PERIODIC ORAL EVALUATION - ESTABLISHED PATIENT Routine 09/11/2022 1:00 PM EST from Last 3 Months or Most Recently Relevant to Health Maintenance Results * CT Abdomen Pelvis w/o Contrast (11/05/2024 3:18 PM EST) Anatomical Region Laterality Modality Body, Pelvis, Abdomen Computed T omography 11/05/2024 3:18 PM EST Narrative 11/05/2024 4:02 PM EST ? [facility] ?[address] ?[place] [address] ? CT Scan Report ? Signed ? Patient: Arcos,Norma Isabel ?MR#: M ?? [id number] ? : 1960 ?Acct:[id number] ? Age/Sex: 64 / F ?ADM Date: 11/05/24 ? Loc: HO.CT ? Attending Dr: Luis Enrique Rees MD ? Ordering Physician: Luis Enrique Rees MD ?? Date of Service: 11/05/24 ?? Procedure(s): CT abdomen pelvis wo IV con ?? Accession Number(s): [id number] ? cc: Sofia Montalvo MD; Luis Enrique Rees MD ? Report Number: ?? [id number]: Total DLP = ??584.00 mGy-cm ?? EXAMINATION: ?? CT ABDOMEN AND PELVIS WITHOUT CONTRAST ? CLINICAL INFORMATION: ?? Abdominal pain ? COMPARISON: ?? CT abdomen pelvis 10/11/2022 ? TECHNIQUE: ?? Multidetector volumetric imaging was performed from the superior aspect ?? of the liver through the pubic symphysis. Sagittal and coronal ?? reformatted images were obtained on the technologist's workstation. ? This CT examination was performed using dose optimization techniques as ?? appropriate, variously including the following: ?? *Automated exposure control ?? *Adjustment of mA and/or kV according to patient size (this includes ?? techniques or standardized protocols for targeted exams where dose is ?? matched to indication/reason for exam; i.e. extremities or head) ?? *Use of iterative reconstruction technique ?? DLP: 504 mGy/cm. ? FINDINGS: ?? LUNG BASES: There is a 3 mm nodule left lung base image 9/. There is ?? platelike atelectasis right middle lobe and left lung base. ??There are ?? intraspinal neuro stimulators from T8 to T9 vertebra. ? LIVER, GALLBLADDER, AND BILIARY TREE: The liver is normal in size, ?? shape, and attenuation. No focal hepatic lesion or biliary ductal ?? dilatation is present. There are punctate calcifications in the right ?? and left hepatic lobe. The gallbladder is unremarkable with no evidence ?? of radiopaque gallstones, gallbladder wall thickening, or obvious ?? pericholecystic inflammatory changes. ? PANCREAS: Unremarkable. ? SPLEEN: Unremarkable. ? ADRENAL GLANDS: Unremarkable. ? KIDNEYS AND URETERS: The kidneys are normal in size, shape, and ?? attenuation. No hydronephrosis, hydroureter, or calculi seen. No ?? perinephric stranding. ? BLADDER: Unremarkable. ? GASTROINTESTINAL TRACT: There is recently ingested food and gas in ?? colon without distention. The small bowel loops are normal caliber. ?? Appendix is normal caliber. There is moderate stool in the right colon ?? without distention. There is no inflammatory process, free air or free ?? fluid. ? ABDOMINAL WALL: No significant hernia is appreciated. ? LYMPH NODES: Normal. ? VASCULAR: Unremarkable. ? PELVIC VISCERA: The uterus is anteverted and appears unremarkable. ?? There is no adnexal mass or free air or free fluid. ? OSSEOUS STRUCTURES: Mildly in this changes L1-2, L3-4, L4-5 disc levels ?? with vacuum disc phenomena and mild ventral spondylosis noted. No ?? aggressive lytic or sclerotic process seen. ? CT/CT abdomen pelvis wo IV con ?? IMPRESSION: ?? No acute intra-abdominal process seen. ? Mild constipation. ? 3 mm nodule left lower lobe. Platelike atelectasis right middle lobe ?? and left lung base. ? Fleischner guidelines were followed. ? Electronically signed by: ??Gen Hanny MD ??11/05/2024 03:59 PM EST RP ? Dictated By: ?Hanny,Gen S MD ? Signed By: ?<Electronically signed by Gen S Hanny, MD in OV> ?11/05/24 1559 ? DD/ 1518 ? TD/TT: 11/05/24 1530 ? Studio Musician: MSM ? Procedure Note Reyna, Image - 11/05/[address] [address] [address] Scan Report Signed Patient: Norma ArcosMR#: M [id number] : 9Acct:[id number] Age/Sex: 64 / FADM Date: 11/05/24 Loc: HO.CT Attending Dr: Luis Enrique Rees MD Ordering Physician: Luis Enrique Rees MD Date of Service: 11/05/24 Procedure(s): CT abdomen pelvis wo IV con Accession Number(s): [id number] cc: Sofia Montalvo MD; Luis Enrique Rees MD Report Number: [id number]: Total DLP = 584.00 mGy-cm EXAMINATION: CT ABDOMEN AND PELVIS WITHOUT CONTRAST CLINICAL INFORMATION: Abdominal pain COMPARISON: CT abdomen pelvis 10/11/2022 TECHNIQUE: Multidetector volumetric imaging was performed from the superior aspect of the liver through the pubic symphysis. Sagittal and coronal reformatted images were obtained on the technologist's workstation. This CT examination was performed using dose optimization techniques as appropriate, variously including the following: *Automated exposure control *Adjustment of mA and/or kV according to patient size (this includes techniques or standardized protocols for targeted exams where dose is matched to indication/reason for exam; i.e. extremities or head) *Use of iterative reconstruction technique DLP: 504 mGy/cm. FINDINGS: LUNG BASES: There is a 3 mm nodule left lung base image 9/7. There is platelike atelectasis right middle lobe and left lung base. There are intraspinal neuro stimulators from T8 to T9 vertebra. LIVER, GALLBLADDER, AND BILIARY TREE: The liver is normal in size, shape, and attenuation. No focal hepatic lesion or biliary ductal dilatation is present. There are punctate calcifications in the right and left hepatic lobe. The gallbladder is unremarkable with no evidence of radiopaque gallstones, gallbladder wall thickening, or obvious pericholecystic inflammatory changes. PANCREAS: Unremarkable. SPLEEN: Unremarkable. ADRENAL GLANDS: Unremarkable. KIDNEYS AND URETERS: The kidneys are normal in size, shape, and attenuation. No hydronephrosis, hydroureter, or calculi seen. No perinephric stranding. BLADDER: Unremarkable. GASTROINTESTINAL TRACT: There is recently ingested food and gas in colon without distention. The small bowel loops are normal caliber. Appendix is normal caliber. There is moderate stool in the right colon without distention. There is no inflammatory process, free air or free fluid. ABDOMINAL WALL: No significant hernia is appreciated. LYMPH NODES: Normal. VASCULAR: Unremarkable. PELVIC VISCERA: The uterus is anteverted and appears unremarkable. There is no adnexal mass or free air or free fluid. OSSEOUS STRUCTURES: Mildly in this changes L1-2, L3-4, L4-5 disc levels with vacuum disc phenomena and mild ventral spondylosis noted. No aggressive lytic or sclerotic process seen. CT/CT abdomen pelvis wo IV con IMPRESSION: No acute intra-abdominal process seen. Mild constipation. 3 mm nodule left lower lobe. Platelike atelectasis right middle lobe and left lung base. Fleischner guidelines were followed. Electronically signed by: Gen Gamino MD 11/05/2024 03:59 PM EST RP Dictated By: Gen Gamino MD Signed By: <Electronically signed by Gen Gamino MD in OV> 11/05/24 1559 DD/ 1518 TD/TT: 11/05/24 1530 Studio Musician: [facility] External Provider IMG CT PROCEDURES Edited Result - Final * US Abdomen Complete (10/13/2024 10:29 AM EST) Anatomical Region Laterality Modality Abdomen Ultrasound 10/13/2024 10:2 9 AM EST Narrative 10/13/2024 2:49 PM EST ? [facility] ?[address] ?[place] [address] ? Ultrasound Report ? Signed ? Patient: Arcos,Norma Isabel ?MR#: M ?? [id number] ? : 1960 ?Acct:[id number] ? Age/Sex: 64 / F ?ADM Date: 01/06/25 ? Loc: HO.US ? Attending Dr: Nida Thorne DO ? Ordering Physician: Nida Thorne DO ?? Date of Service: 10/13/24 ?? Procedure(s): US abdomen complete ?? Accession Number(s): [id number] ? cc: Sofia Montalvo MD; Nida Thorne DO ? EXAMINATION: ??US ABDOMEN ? HISTORY: area of GB sludge vs wall thickening vs polyp on US for f/u ? TECHNIQUE: Real-time grayscale ultrasound imaging of the abdomen was ?? performed and images were reviewed. ? COMPARISON: Comparison is made with the prior examination dated ?? 05/01/2024. ? FINDINGS: ?? Liver: The liver is normal in size, but demonstrates increased ?? echotexture, consistent with steatosis. ??Multiple hepatic ?? calcifications are again noted. No focal mass or intrahepatic biliary ?? ductal dilatation is identified. ? Gallbladder and biliary tree: The gallbladder is unremarkable, without ?? evidence of calculi, wall thickening, or pericholecystic fluid. The ?? previously seen possible sludge versus wall thickening is no longer ?? identified. ??There is no sonographic Bhatt sign. ??The common bile duct ?? is normal in caliber measuring 6 mm. ? Kidneys: ??The right kidney measures 12.4 cm in length. The left kidney ?? measures 12.0 cm in length. ??The kidneys are unremarkable, without ?? evidence of masses, hydronephrosis, or calculi. ? Pancreas: The pancreatic head, neck, and body are unremarkable. The ?? pancreatic tail is obscured by bowel gas. ? Spleen: The spleen is normal in size and contour, measuring 9.7 cm in ?? length. ? Abdominal aorta and inferior vena cava: The visualized portions of the ?? abdominal aorta and inferior vena cava are normal in caliber. ? There is no free fluid in the abdomen. ? US/US abdomen complete ?? IMPRESSION: ? Hepatic steatosis. Otherwise unremarkable abdominal ultrasound. The ?? previously seen possible gallbladder sludge versus gallbladder wall ?? thickening is no longer identified. ? Electronically signed by: ??Sunil Mohan MD ??10/13/2024 02:46 PM EST ?? RP ? Dictated By: ?Sunil Mohan MD ? Signed By: ?<Electronically signed by Sunil Mohan MD in OV> ?10/13/24 1446 ? DD/ 1029 ? TD/TT: 10/13/24 1043 ? Studio Musician: ? Procedure Note Donotuseinterpreter, Image - 10/13/[address] [address] Ultrasound Report Signed Patient: Norma ArcosMR#: M [id number] : 9Acct:[id number] Age/Sex: 64 / FADM Date: 10/13/24 Loc: HO.US Attending Dr: Nida Thorne DO Ordering Physician: Nida Thorne DO Date of Service: 10/13/24 Procedure(s): US abdomen complete Accession Number(s): [id number] cc: Sofia Montalvo MD; Nida Thorne DO EXAMINATION: US ABDOMEN HISTORY: area of GB sludge vs wall thickening vs polyp on US for f/u TECHNIQUE: Real-time grayscale ultrasound imaging of the abdomen was performed and images were reviewed. COMPARISON: Comparison is made with the prior examination dated 05/01/2024. FINDINGS: Liver: The liver is normal in size, but demonstrates increased echotexture, consistent with steatosis. Multiple hepatic calcifications are again noted. No focal mass or intrahepatic biliary ductal dilatation is identified. Gallbladder and biliary tree: The gallbladder is unremarkable, without evidence of calculi, wall thickening, or pericholecystic fluid. The previously seen possible sludge versus wall thickening is no longer identified. There is no sonographic Bhatt sign. The common bile duct is normal in caliber measuring 6 mm. Kidneys: The right kidney measures 12.4 cm in length. The left kidney measures 12.0 cm in length. The kidneys are unremarkable, without evidence of masses, hydronephrosis, or calculi. Pancreas: The pancreatic head, neck, and body are unremarkable. The pancreatic tail is obscured by bowel gas. Spleen: The spleen is normal in size and contour, measuring 9.7 cm in length. Abdominal aorta and inferior vena cava: The visualized portions of the abdominal aorta and inferior vena cava are normal in caliber. There is no free fluid in the abdomen. US/US abdomen complete IMPRESSION: Hepatic steatosis. Otherwise unremarkable abdominal ultrasound. The previously seen possible gallbladder sludge versus gallbladder wall thickening is no longer identified. Electronically signed by: Sunil Mohan MD 10/13/2024 02:46 PM EST RP Dictated By: Sunil Mohan MD Signed By: <Electronically signed by Sunil Mohan MD in OV> 10/13/24 1446 DD/ 1029 TD/TT: 10/13/24 1043 Studio Musician: us Nida Mati DO IMG US PROCEDURES Final Resu lt * BD DEXA Axial (09/12/2024 1:30 PM EST) Anatomical Region Laterality Modality Body Radiographic Linette ging 09/12/2024 1:30 PM EST Narrative 09/15/2024 8:36 AM EST ? [facility] ? [address] ?[place] [address] ? Mammography Report ? Signed ? Patient: Arcos,Norma Isabel ?MR#: M ?? [id number] ? : 1960 ?Acct:[id number] ? Age/Sex: 64 / F ?ADM Date: 09/12/ ? Loc: HO.MAMMO ? Attending Dr: Aryan Estrella MD ? Ordering Physician: Sameer,Aryan Miller MD ?Results: ? Date of Service: 09/12/24 ?Follow Up: ? Procedure(s): XR DEXA axial skeleton ?? Accession Number(s): [id number] ? cc: Sofia Montalvo MD; Aryan Estrella MD ? EXAMINATION: ?? BONE DENSITOMETRY ? CLINICAL INDICATION: ?? Asymptomatic menopausal state. ? COMPARISON: ?? Previous BD dated 10/15/2015 and baseline BD dated 01/22/2009. ? TECHNIQUE: Using a qianchengwuyou DXA System (software version: ?? 13.1) manufactured by [employer], dual-energy x-ray absorptiometry ?? was performed of the lumbar spine and left hip. The images are of good ?? technical quality. Summary results are attached. ? FINDINGS: ?? LEFT FEMUR, NECK: ?? Current: BMD 0.871 g/cm2, Z-score -0.1, T-score -1.2, osteopenia. ?? Prior: BMD 0.934 g/cm2. ?? Baseline: BMD 0.914 g/cm2. ? LEFT FEMUR, TOTAL: ?? Current: BMD 1.048 g/cm2, Z-score 1.1, T-score 0.3, normal, 0.6% ?? decrease from previous, 0.2% decrease from baseline (<5% change is not ?? significant). ?? Prior: BMD 1.054 g/cm2. ?? Baseline: BMD 1.050 g/cm2. ? AP SPINE L1-L4: ?? Current: BMD 1.314 g/cm2, Z-score 2.2, T-score 1.1, normal, 1.9% ?? increase from previous, 1.7% increase from baseline (<5% change is not ?? significant). ?? Prior: BMD 1.289 g/cm2. ?? Baseline: BMD 1.292 g/cm2. ? IDENTIFIED RISK FACTORS: ?? Menopause, tobacco user (current smoker). ? HISTORY OF FRACTURE: ?? None listed. ? MEDICATIONS: ?? Multivitamin, vitamin D. ? MM/XR DEXA axial skeleton ?? IMPRESSION: ?? 1. DIAGNOSIS: Osteopenia based on the lowest T-score value of -1.2 in ?? the femoral neck applying World Health Organization criteria. ? 2. 10-YEAR FRACTURE RISK PREDICTION, FRAX: Major osteoporotic fracture ?? (clinical spine, forearm, hip or shoulder) 4.4%. Hip fracture 0.6%. ?? 3. Treatment Recommendations: NOF guidelines recommend consideration ?? for treatment in postmenopausal women and men age 50 and older ?? presenting with the following: ?? -A hip or vertebral (clinical or morphometric) fracture. ?? -T-score less than or equal to -2.5 at the femoral neck or spine after ?? appropriate evaluation to exclude secondary causes. ?? -Low bone mass at the hip or spine and a 10-year fracture probability ?? by FRAX of greater than or equal to 3% for hip fracture or greater than ?? or equal to 20% for major osteoporotic fracture based on the [place] adapted ?? WHO algorithm. ?? 4. Other Recommendations: All treatment decisions require clinical ?? judgment and consideration of individual patient factors, including ?? patient preferences, comorbidities, previous drug use, risk factors not ?? captured in the FRAX model (e.g. frailty, falls, vitamin D deficiency, ?? increased bone turnover, interval significant decline in bone density) ?? and possible under or overestimation of fracture risk by FRAX. ?? Additional medical evaluation for secondary cause of low bone mineral ?? density may be appropriate. ? FUTURE SCAN RECOMMENDATION: ?? People with diagnosed cases of osteoporosis or at high risk for ?? fracture should have regular bone mineral density tests. For patients ?? eligible for Medicare, routine testing is allowed once every 2 years. ?? The testing frequency can be increased to one year for patients who ?? have rapidly progressing disease, those who are receiving or ?? discontinuing medical therapy to restore bone mass, or have additional ?? risk factors. ? Electronically signed by: ??Hannah Shaffer MD ??09/15/2024 08:33 AM EST ?? RP ? Dictated By: ?Hannah Shaffer MD ? Signed By: ?<Electronically signed by Hannah Shaffer MD in OV> ?09/15/24 0833 ? DD/ 1330 ? TD/TT: 09/12/24 7370 ? Studio Musician: HS ? Procedure Note Sofy Orellana - 09/15/2024 [facility] [address] [place] [address] Dr. [place], [place] [address] Mammography Report Signed Patient: Norma ArcosMR#: M [id number] : 9Acct:[id number] Age/Sex: 64 / FADM Date: 09/12/24 Loc: HO.MAMMO Attending Dr: Aryan Estrella MD Ordering Physician: Aryan Estrellaesults: Date of Service: 09/12/24Follow Up: Procedure(s): XR DEXA axial skeleton Accession Number(s): [id number] cc: Sofia Montalvo MD; Aryan Estrella MD EXAMINATION: BONE DENSITOMETRY CLINICAL INDICATION: Asymptomatic menopausal state. COMPARISON: Previous BD dated 10/15/2015 and baseline BD dated 01/22/2009. TECHNIQUE: Using a [employer] DXA System (software version: 13.1) manufactured by [employer], dual-energy x-ray absorptiometry was performed of the lumbar spine and left hip. The images are of good technical quality. Summary results are attached. FINDINGS: LEFT FEMUR, NECK: Current: BMD 0.871 g/cm2, Z-score -0.1, T-score -1.2, osteopenia. Prior: BMD 0.934 g/cm2. Baseline: BMD 0.914 g/cm2. LEFT FEMUR, TOTAL: Current: BMD 1.048 g/cm2, Z-score 1.1, T-score 0.3, normal, 0.6% decrease from previous, 0.2% decrease from baseline (<5% change is not significant). Prior: BMD 1.054 g/cm2. Baseline: BMD 1.050 g/cm2. AP SPINE L1-L4: Current: BMD 1.314 g/cm2, Z-score 2.2, T-score 1.1, normal, 1.9% increase from previous, 1.7% increase from baseline (<5% change is not significant). Prior: BMD 1.289 g/cm2. Baseline: BMD 1.292 g/cm2. IDENTIFIED RISK FACTORS: Menopause, tobacco user (current smoker). HISTORY OF FRACTURE: None listed. MEDICATIONS: Multivitamin, vitamin D. MM/XR DEXA axial skeleton IMPRESSION: 1. DIAGNOSIS: Osteopenia based on the lowest T-score value of -1.2 in the femoral neck applying World Health Organization criteria. 2. 10-YEAR FRACTURE RISK PREDICTION, FRAX: Major osteoporotic fracture (clinical spine, forearm, hip or shoulder) 4.4%. Hip fracture 0.6%. 3. Treatment Recommendations: NOF guidelines recommend consideration for treatment in postmenopausal women and men age 50 and older presenting with the following: -A hip or vertebral (clinical or morphometric) fracture. -T-score less than or equal to -2.5 at the femoral neck or spine after appropriate evaluation to exclude secondary causes. -Low bone mass at the hip or spine and a 10-year fracture probability by FRAX of greater than or equal to 3% for hip fracture or greater than or equal to 20% for major osteoporotic fracture based on the [place] adapted WHO algorithm. 4. Other Recommendations: All treatment decisions require clinical judgment and consideration of individual patient factors, including patient preferences, comorbidities, previous drug use, risk factors not captured in the FRAX model (e.g. frailty, falls, vitamin D deficiency, increased bone turnover, interval significant decline in bone density) and possible under or overestimation of fracture risk by FRAX. Additional medical evaluation for secondary cause of low bone mineral density may be appropriate. FUTURE SCAN RECOMMENDATION: People with diagnosed cases of osteoporosis or at high risk for fracture should have regular bone mineral density tests. For patients eligible for Medicare, routine testing is allowed once every 2 years. The testing frequency can be increased to one year for patients who have rapidly progressing disease, those who are receiving or discontinuing medical therapy to restore bone mass, or have additional risk factors. Electronically signed by: Hannah Shaffer MD 09/15/2024 08:33 AM EST Dictated By: Hannah Shaffer MD Signed By: <Electronically signed by Hannah Shaffer MD in OV> 09/15/24 0833 DD/ 1330 TD/TT: 09/12/24 1350 Studio Musician: [facility] External Provider IMG DXA PROCEDURES Final Result * BI Mammogram Screening Tomosynthesis Bilateral (09/12/2024 1:15 PM EST) Anatomical Region Laterality Modality Breast Bilateral Mammography 09/12/2024 1:15 PM EST Narrative 09/18/2024 1:29 PM EST ? [facility] ? [address] ?[place], [place] [address] ? Mammography Report ? Signed ? Patient: Norma Arcos ?MR#: M ?? [id number] ? : 1960 ?Acct:[id number] ? Age/Sex: 64 / F ?ADM Date: 09/12/24 ? Loc: HO.MAMMO ? Attending Dr: Aryan Estrella MD ? Ordering Physician: Aryan Estrella MD ?Results: 1Negativ ?? e ? Date of Service: 09/12/24 ?Follow Up: 1 Year From Orig ?? inal Mammogram ? Procedure(s): MM tomosynthesis screening BI ?? Accession Number(s): [id number] ? cc: Sofia Montalvo MD; Aryan Estrella MD ? EXAMINATION: ?? MM SCREENING DIGITAL BREAST TOMOSYNTHESIS, BILATERAL ? CLINICAL INFORMATION: ? Screening. Asymptomatic. ? COMPARISON: ?? Mammography: Comparison is made with available priors ? TECHNIQUE: ?? Digital breast mammography with tomosynthesis is performed in both the ?? craniocaudal and mediolateral oblique views along with computer-aided ?? detection (CAD). ? FINDINGS: ?? There are scattered areas of fibroglandular density (ACR BI-RADS breast ?? composition Category b). ? There are no significant masses, abnormal calcifications, or other ?? abnormalities. ? MM/MM tomosynthesis screening BI ?? IMPRESSION: ?? No mammographic evidence of malignancy. ? ASSESSMENT: ? BI-RADS BI-RADS 1 - Negative ? RECOMMENDATION: ?? Routine annual mammography screening. ? 1 year F/U ? This examination should not preclude the clinical evaluation of a ?? suspicious palpable abnormality. ? This patient's information was entered into a reminder system with a ?? target due date for their next mammogram. ? Electronically signed by: ??Chelsi Beverly DO ??09/18/2024 01:25 PM EST ?? RP ? Dictated By: ?Chelsi Beverly DO ? Signed By: ?<Electronically signed by Chelsi Beverly, DO in OV> ? 09/18/24 1325 ? DD/ 1315 ? TD/TT: 09/12/24 1338 ? Studio Musician: ? Procedure Note Reyna, Image - 09/19/2024 [facility] [address] [place] [address] Mammography Report Signed Patient: Norma Arcos#: M [id number] : 9Acct:[id number] Age/Sex: 64 / FADM Date: 09/12/24 Loc: HO.MAMMO Attending Dr: Aryan Estrella MD Ordering Physician: Aryan Estrella MDResults: 1Negativ e Date of Service: 09/12/24Follow Up: 1 Year From Orig inal Mammogram Procedure(s): MM tomosynthesis screening BI Accession Number(s): [id number] cc: Sofia Montalvo MD; Aryan Estrella MD EXAMINATION: MM SCREENING DIGITAL BREAST TOMOSYNTHESIS, BILATERAL CLINICAL INFORMATION: Screening. Asymptomatic. COMPARISON: Mammography: Comparison is made with available priors TECHNIQUE: Digital breast mammography with tomosynthesis is performed in both the craniocaudal and mediolateral oblique views along with computer-aided detection (CAD). FINDINGS: There are scattered areas of fibroglandular density (ACR BI-RADS breast composition Category b). There are no significant masses, abnormal calcifications, or other abnormalities. MM/MM tomosynthesis screening BI IMPRESSION: No mammographic evidence of malignancy. ASSESSMENT: BI-RADS BI-RADS 1 - Negative RECOMMENDATION: Routine annual mammography screening. 1 year F/U This examination should not preclude the clinical evaluation of a suspicious palpable abnormality. This patient's information was entered into a reminder system with a target due date for their next mammogram. Electronically signed by: Chelsi Beverly DO 09/18/2024 01:25 PM EST RP Workstation: [email or web address] Dictated By: Chelsi Beverly DO Signed By: <Electronically signed by Chelsi Beverly DO in OV> 09/18/24 1325 DD/ 1315 TD/TT: 09/12/24 1338 Studio Musician: [facility] External Provider IMG BI PROCEDURES Edited Result - Final * Fundus Photos - OU - Both Eyes (09/09/2024 1:00 PM EST) Narrative Clement Oliavresn, OD - 09/18/2024 2:18 PM EST Right Eye Progression has no prior data. Disc findings include normal observations. Macula findings include normal observations. Vessel findings include (2+ tortuosity of retinal vessels). Periphery findings include normal observations. Left Eye Progression has no prior data. Disc findings include normal observations. Macula findings include normal observations. Vessel findings include (1+ tortuosity of retinal vessels). Periphery findings include normal observations. Notes Interpretation and Plan: 2+ tortuosity of retinal vessels in the right eye and 1+ tortuosity of retinal vessels in the left eye. No treatment necessary. Will monitor at her next exam. Celina Olivares OD OPHTH PHOTOGRAPHY Final Resul t * ThinPrep Imaging Pap and HPV mRNA E6/E7 with Reflex to HPV 16,18/45 (07/30/2024 2:16 PM EDT) HPV 16 [facility] HPV 18/45 RNA [facility] HPV nRNA E6/E7 Not Detected Not Detected [facility] Comment:Methodology: Transcr iption-Mediated AmplificationThis assay detects E6/E7 viral messenger RNA (mRNA) from 14high-risk HPV types (16,18,31,33,35,39,45,51,52,56,58,59,66,68).Cervical sources are required for HPV testing.If a vaginal source from a patient who has had atotal hysterectomy with removal of cervix wassubmitted, please contact the testing laboratoryfor alternative testing options.For additional information, please refer tohttp://education.[employer]/faq/EYK940l2(This link if provided for information/educational purposes only.)THIS TEST WAS PERFORMED AT:[employer] [address] [id number] ALBERT MD SOURCE: SEE NOTE [facility] Comment:Cervix Report Status: [facility] Clinical Information: SEE NOTE [facility] Comment:Postmenopausal LMP: SEE NOTE [facility] Comment:PM Prev. PAP: SEE NOTE [facility] Comment:2022 Prev. BX: SEE NOTE [facility] Comment:NONE GIVEN Statement Of Adequacy: SEE NOTE [facility] Comment:Satisfactory for hailey luation.Endocervical/transformation zone componentpresent. General Categorization: [facility] Interpretation/Result: SEE NOTE [facility] Comment:Cytology Results: Ne gative for intraepitheliallesion or malignancy. Cytology Comment SEE NOTE [facility] Comment:This Pap test has be en evaluated with computerassisted technology. Hoisting Machine Operator: SEE NOTE [facility] Comment:RXB, CT(ASCP)CT scre ening location: [place] [address] Review Hoisting Machine Operator: SEE NOTE [facility] Comment:KF, CT(ASCP)CT scree omari location: [place] [address] Pathologist [facility] PAP Infection [facility] See Note SEE [facility] Comment:EXPLANATORY NOTE:The Pap is a screening test for cervical cancer. It isnot a diagnostic test and is subject to false negativeand false positive results. It is most reliable when asatisfactory sample, regularly obtained, is submittedwith relevant clinical findings and history, and whenthe Pap result is evaluated along with historic andcurrent clinical information. 07/30/2024 2:16 PM EDT 07/30/2024 3:50 PM EDT Narrative [facility] - 08/04/2024 3:28 PM EDT SEE SCANNED RESULTS IN EMRWas previous PAP abnormal? YesIf PAP abnormal, please specify: Ascus,HPV +Clinical Information: routineCollection Date: 07/30/24igh risk HPV with 16 ?? 18 genotyping? YReflex HPV any abnormal diagnosis? YReflex HPV if ASCUS only? NHigh Risk HPV (any diagnosis)? YLMP: postmenopausalDate of previous PAP erformed by: : cervical us Generic External Data Provider LAB PATHOLOGY ORD ERABLES Final Result [facility] [address] [place] [phone] * (ABNORMAL) POCT HGB A1C (06/30/2024 1:14 PM EDT) Hemoglobin A1C 6.3(A) 4.0 - 6.0 % QC Media Lot # [id number] Lot# Expiration Date [id number] Blood 06/30/2024 1:14 PM EDT us Sofia Art MD POINT OF CARE TEST EN TER/EDIT ORDERABLES Final Result * Creatinine, Random Urine (02/18/2024 1:28 PM EDT) Creatinine, Urine 35.20 mg/dL [facility] 02/18/2024 1:28 PM EDT 02/18/2024 1:35 PM EDT us Generic External Data Provider LAB URINE ORDERAB LES Final Result Performing Organization Address City/Va Hospital/ZIP Co de Phone Number [facility] [address] [place] [address] [phone] * (ABNORMAL) Lipid Panel, Standard (12/24/2023 12:56 PM EDT) Triglycerides 344(H) <150 mg/dL [facility] Comment:Desirable Triglyceri de: less than 150 mg/dLBorderline High Triglyceride 150-199 mg/dLHigh Triglyceride: 200-499 mg/dLVery High Triglyceride: greater than or equal to 5OO mg/dL Cholesterol 186 <200 mg/dL [facility] Comment:Desirable Cholestero l: less than 200 mg/dLBorderline High Cholesterol: 200-239 mg/dLHigh Cholesterol: greater than 239 mg/dL LDL Cholesterol Calculated 52 <100 mg/dL [facility] Comment:Desirable LDL: less than 100 mg/dLNear Optimal/Above Optimal LDL: 110- 129 mg/dLBorderline High LDL: 130-159 mg/dLHigh LDL: 160-189 mg/dLVery High LDL: greater than or equal to 190 mg/dL HDL Cholesterol 66 >40 mg/dL [facility] Comment:Desirable HDL: great er than 40 mg/dL Note: This HDL assay may give artificially low results in patients with liver disease. Blood Venous blood specimen / Unknown 12/24/2023 12:56 PM EDT 12/24/2023 1:06 PM EDT us Sofia Art MD LAB BLOOD ORDERABLES Final Result Performing Organization Address City/Va Hospital/ZIP Co de Phone Number [facility] [address] [place] [phone] * Hm Colonoscopy (04/04/2023) Colonoscopy Normal Normal us Sherri Britton MD HEALTH MAINTENANCE Final Result from Last 3 Months or Most Recently Relevant to Health Maintenance Insurance [facility] STANDARD MEDIC[place] [phone] [facility] Care Teams Owner Operator Relationship Specialty Start Date End Date Sofia Montalvo MD [address] [place] [phone] PCP - General Family Medicine 09/23/21
--- OUTSIDE RECORDS SUMMARY | 2024-12-03 16:10 | XMS_ITS | Encounter Summary ---
Author Organization [employer] Address [address] [place] [address] Care Team Providers Care Music Industry Internship Name Role Phone Sofia Montalvo MD Primary Care Provide r Reason for Referral * Consultation (Routine) - Pending Review Specialty Diagnoses / Procedures Referred By Willie duke Referred To Contact Pulmonary Disease Diagnoses Pulmonary nodules Atelectasis Sofia Montalvo MD [address] [place] [address] Phone: tel: fax: Referral ID Status Reason Start Date Expiration Date Visits Requested Visits Authorized [id number] Pending Review Specialty Services Required 11/20/2024 11/20/2025 1 1 Encounter Details Date Type Department Care Team (Late st Contact Info) Description 11/20/2024 Orders Only [facility] [address] [place] [phone] Sofia Montalvo MD [address] [place], [place] [phone] Pulmonary nodules (Primary Dx); Atelectasis Social History Tobacco Use Types Packs/Day Years [...] Description 12/15/2024 1:30 PM EDT Office Visit [facility] [address] [place] [phone] Sofia Montalvo MD [address] [place] [address] 03/30/2025 10:30 AM EDT Telemedicine [facility] [address] [place] [phone] Scheduled Referrals Name Type Priority Associated Diagnoses Order Schedule Referral to Pulmonology Outpatient Referral Routine Pulmonary nodules Atelectasis Expected: 11/20/2024 (Approximate), Expires: 11/20/2025 documented as of this encounter Visit Diagnoses Diagnosis Pulmonary nodules- Primary Other diseases of lung, not elsewhere classified Atelectasis Pulmonary collapse documented in this encounter Care Teams Music Industry Internship Relationship Specialty Start Date End Date Sofia Montalvo MD [address] [place] [address] PCP - General Family Medicine 09/23/21 documented as of this encounter
--- OUTSIDE RECORDS SUMMARY | 2024-12-03 16:10 | XMS_ITS | Encounter Summary ---
Author Organization [employer] Address [address] 7[address] [place] [address] Care Team Providers Care 3D Specialist Name Role Phone Sofia Montalvo MD Primary Care Provide r Reason for Visit * Reason Onset Date Comments Nurse Triage 11/18/2024 Encounter Details Date Type Department Care Team ([facility] st Contact Info) Description 11/18/2024 Telephone [facility] [address] [place], [place] [phone] Sofia Montalvo MD [address] [place], [place] [phone] Nurse Triage Social History Tobacco Use Types Packs/Day Years [...] encounter Miscellaneous Notes * Telephone Encounter - Shannon Chao LPN - 11/18/2024 3:13 PM EST Triage call returned with BLS # [id number] radha Helms. Patient reports finger pain in right hand thumb. Thumb is cracked with dry skin. No fever. No linear redness. Snow Removal/Plowing ended call. Patient put Gson on the phone Terry. Patient reports that area is painful she has used topical creams and ABT ointment on finger and it is not healing. Patient also had one on index finger that is now healed. Disposition reviewed and patient in agreement with plan.No PCP or Team appts. Available at time of call. [facility] Walk In Center hours and availability provided for patient evaluation. Triage nurse informed the patient may have a wait of 1-2 hours because Walk In Clinic may have delays due to patient volume or symptom acuity. Insurance verified as active by Red Team FD. Protocol Used: Cuts and Lacerations (Adult) Protocol-Based Disposition: See in Office or Video Visit Today Override (Final) Disposition: Go to Urgent Care Now Override Reason: No appointments available Positive Triage Question: * Patient wants to be seen * All higher-acuity triage questions were negative Care Advice Discussed: * Clean the Wound * Antibiotic Ointment * Reasons To Call Back - Looks infected (pus, redness, increasing tenderness) - You become worse * Telephone Encounter - Ashly Fried - 11/18/2024 2:16 PM EST Symptom: Finger Pain - Not From Injury Outcome: Schedule an urgent appointment (within 1 hour) or talk to a nurse or provider soon Reason: Severe pain now The caller accepted this outcome. [phone] hungarian documented in this encounter Plan of Treatment Upcoming Encounters Date Type Department Care Team (Late st Contact Info) Description 12/15/2024 1:30 PM EDT Office Visit [facility]INE [address] [place] [phone] Sofia Montalvo MD [address] [place] [address] 03/30/2025 10:30 AM EDT Telemedicine [address] [address] documented as of this encounter Visit Diagnoses Not on filedocumented in this encounter Care Teams 3D Specialist Relationship Specialty Start Date End Date Sofia Montalvo MD [address] [place] [address] PCP - General Family Medicine 09/23/21 documented as of this encounter
--- OUTSIDE RECORDS SUMMARY | 2024-12-03 16:10 | XMS_ITS | Encounter Summary ---
Author Organization [employer] Address [address] [place] [address] Care Team Providers Care Workforce Management Consultant Name Role Phone Sofia Montalvo MD Primary Care Provide r Reason for Visit * Reason Comments Med Refill Encounter Details Date Type Department Care Team ([facility] st Contact Info) Description 11/28/2024 Refill [facility] [address] [place], [place] [phone] Sofia Montalvo MD [address] [place], [place] [phone] Chronic diarrhea Social History Tobacco Use Types [...] 12/15/2024 1:30 PM EDT Office Visit [facility] [address] [place] [phone] Sofia Montalvo MD [address] [place] [address] 03/30/2025 10:30 AM EDT Telemedicine [address] [address] documented as of this encounter Visit Diagnoses Diagnosis Chronic diarrhea Diarrhea documented in this encounter Care Teams Workforce Management Consultant Relationship Specialty Start Date End Date Sofia Montalvo MD [address] [place] [address] PCP - General Family Medicine 09/23/21 documented as of this encounter
--- OUTSIDE RECORDS SUMMARY | 2024-12-03 16:10 | XMS_ITS | Encounter Summary ---
Author Organization [employer] Address [address] [facility]t [place] [address] Care Team Providers Care Manager Mortgage Name Role Phone Sofia Montalvo MD Primary Care Provide r Reason for Visit * Reason Comments Med Refill Encounter Details Date Type Department Care Team ([facility] st Contact Info) Description 11/02/2024 Refill [facility] [address] [place], [place] [phone] Sofia Montalvo MD [address] [place], [place] [phone] Essential hypertension Social History Tobacco Use Types Packs/Day Years [...] Description 12/15/2024 1:30 PM EDT Office Visit [facility] [address] [place] [phone] Sofia Montalvo MD [address] [place] [address] 03/30/2025 10:30 AM EDT Telemedicine [address] [address] documented as of this encounter Visit Diagnoses Diagnosis Essential hypertension Unspecified essential hypertension documented in this encounter Care Teams Manager Mortgage Relationship Specialty Start Date End Date Sofia Montalvo MD [address] [place] [phone] PCP - General Family Medicine 09/23/21 documented as of this encounter
--- OUTSIDE RECORDS SUMMARY | 2024-12-03 16:10 | XMS_ITS | Encounter Summary ---
Author Organization [employer] Address [address] 7t [place] [address] Care Team Providers Care Concrete Block Layer Name Role Phone Sofia Montalvo MD Primary Care Provide r Reason for Visit * Reason Comments Med Refill Encounter Details Date Type Department Care Team ([facility] st Contact Info) Description 11/27/2024 Refill [facility] [address] [place], [place] [phone] Sofia Montalvo MD [address] [place], [place] [phone] Drug induced constipation Social History Tobacco Use Types Packs/Day Years [...] Description 12/15/2024 1:30 PM EDT Office Visit [facility] [address] [place] [phone] Sofia Montalvo MD [address] [place] [address] 03/30/2025 10:30 AM EDT Telemedicine [address] [address] documented as of this encounter Visit Diagnoses Diagnosis Drug induced constipation documented in this encounter Care Teams Concrete Block Layer Relationship Specialty Start Date End Date Sofia Montalvo MD [address] [place] [address] PCP - General Family Medicine 09/23/21 documented as of this encounter
--- OUTSIDE RECORDS SUMMARY | 2024-12-03 16:10 | XMS_ITS | Encounter Summary ---
Author Organization [employer] Address 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 No need for follow-up CT scan this year on these nodules, patient can follow-up with PCP at next appointment to address further follow-up next year. documented in this encounter Plan of Treatment Upcoming Encounters Date Type Department Care Team (Late st Contact Info) Description 12/15/2024 1:30 PM EDT Office Visit [facility] MED[facility]INE [address] [place] [phone] Sofia Montalvo MD [address] [place] [address] 03/30/2025 10:30 AM EDT Telemedicine [address] [address] documented as of this encounter Procedures Procedure Name Priority Date/Time Associated Diagnosis Comments CT ABDOMEN PELVIS WO CONTRAST Routine 11/05/2024 3:18 PM EST documented in this encounter Results * CT Abdomen Pelvis w/o Contrast (11/05/2024 3:18 PM EST) Anatomical Region Laterality Modality Body, Pelvis, Abdomen Computed T omography 11/05/2024 3:18 PM EST Narrative 11/05/2024 4:02 PM EST ? [facility] ?[address] ?[place] [address] ? CT Scan Report ? Signed ? Patient: Arcos,Norma Isabel ?MR#: M ?? [id number] ? : 1960 ?Acct:[id number] ? Age/Sex: 64 / F ?ADM Date: 11/05/24 ? Loc: HO.CT ? Attending Dr: Luis Enrique Rees MD ? Ordering Physician: Luis Enrique Rees MD ?? Date of Service: 11/05/24 ?? Procedure(s): CT abdomen pelvis wo IV con ?? Accession Number(s): [id number] ? cc: Sofia Montalvo MD; Luis Enrique Rees MD ? Report Number: ?? [id number]: Total DLP = ??584.00 mGy-cm ?? EXAMINATION: [...] 3 mm nodule left lung base image /. There is ?? platelike atelectasis right middle [...] were followed. ? Electronically signed by: ??Gen Gamino MD ??11/05/2024 03:59 PM EST RP ? Dictated By: ?Hanny,Gen S MD ? Signed By: ?<Electronically signed by Gen S Hanny, MD in OV> ?11/05/24 1559 ? DD/ 1518 ? TD/TT: 11/05/24 1530 ? Supervisor Show Operations: MSM ? Procedure Note Reyna, Sofy - 11/05/[address] [address] [address] Scan Report Signed Patient: Norma Arcos Iveunice#: M [id number] : 9Acct:[id number] Age/Sex: 64 / FADM Date: 11/05/24 Loc: HO.CT Attending Dr: Luis Enrique Rees MD Ordering Physician: Luis Enrique Rees MD Date of Service: 11/05/24 Procedure(s): CT abdomen pelvis wo IV con Accession Number(s): [id number] cc: Sofia Montalvo MD; Luis Enrique Rees MD Report Number: [id number]: Total DLP = 584.00 mGy-cm EXAMINATION: CT [...] Gen Gamino MD 11/05/2024 03:59 PM EST Dictated By: Gen Gamino MD Signed By: <Electronically signed by Gen Gamino MD in OV> 11/05/24 1559 DD/ 1518 TD/TT: 11/05/24 1530 Supervisor Show Operations: [facility] External Provider IMG CT PROCEDURES Edited Result - Final documented in this encounter Visit Diagnoses Not on filedocumented in this encounter Care Teams [employer] Glazer Relationship Specialty Start Date End Date Sofia Montalvo MD [address] [place] [address] PCP - General Family Medicine 09/23/21 documented as of this encounter
--- OUTSIDE RECORDS SUMMARY | 2024-12-03 16:10 | XMS_ITS | Encounter Summary ---
Author Organization [employer] Address [address] [facility] [address] [address] [place] [address] Care Team Providers Care Freelance Photographer Name Role Phone Sofia Montalvo MD Primary Care Provide r Reason for Visit * Reason Comments Med Refill Encounter Details Date Type Department Care Team ([facility] st Contact Info) Description 08/24/[address] [facility] MEDICINE [address] [place], [place] [phone] Sofia Montalvo MD [address] [place], [place] [phone] Other chronic pain Social History Tobacco Use [...] Description 12/15/2024 1:30 PM EDT Office Visit [facility] MEDICINE [address] [place] [phone] Sofia Montalvo MD [address] [place] [address] 03/30/2025 10:30 AM EDT Telemedicine [address] [address] documented as of this encounter Visit Diagnoses Diagnosis Other chronic pain documented in this encounter Care Teams Freelance Photographer Relationship Specialty Start Date End Date Sofia Montalvo MD [address] [place] [address] PCP - General Family Medicine 09/23/21 documented as of this encounter
--- OUTSIDE RECORDS SUMMARY | 2024-12-03 16:10 | XMS_ITS | Encounter Summary ---
Author Organization [employer] Address [address] [place] [address] Care Team Providers Care Solidworks Drafter Name Role Phone Sofia Montalvo MD Primary Care Provide r Reason for Visit * Reason Onset Date Comments Results 11/20/2024 Encounter Details Date Type Department Care Team ([facility] Contact Info) Description 11/20/2024 Telephone [facility] [address] [place], [place] [phone] Sofia Montalvo MD [address] [place], [place] [phone] Results Social History Tobacco Use Types Packs/Day Years [...] encounter Miscellaneous Notes * Telephone Encounter - Caitlin Roland RN - 11/20/2024 4:06 PM EST TC placed to [phone] via [employer] interpreters ([employer] #[id number]) in regards to below message. Patient verbalized understanding and was educated on lung nodule and atelectasis. Patient is aware of pulmonology referral and aware she will receive a letter in the mail with appointment date and time or a call with pulmonology appointment. Patient to f/u PRN. ----- Message from Sofia Art MD sent at 11/20/2024 3:37 PM EST ----- Please let patient know due to incidental finding of pulmonary nodules and atelectasis I decided torefer her to pulmonology thank you ----- Message ----- From: Tiffani Rojas MD Sent: 11/05/2024 7:54 PM EST To: Sofia Art MD CT scan abd/pelvis at the ED on [...] Description 12/15/2024 1:30 PM EDT Office Visit [facility] MEDICINE [address] [place] [phone] Sofia Montalvo MD [address] [place] [address] 03/30/2025 10:30 AM EDT Telemedicine [facility] [address] [place] [address] documented as of this encounter Visit Diagnoses Not on filedocumented in this encounter Care Teams Solidworks Drafter Relationship Specialty Start Date End Date Sofia Montalvo MD [address] [place] [address] PCP - General Family Medicine 09/23/21 documented as of this encounter
== END 2024-12-03 13:34 | disposition home or self-care (01) ==
PROVIDERS: PCP Internal Medicine; Visit Provider Anesthesiology
DX: M54.51 Vertebrogenic low back pain (principal); M54.16 Radiculopathy, lumbar region; M53.3 Sacrococcygeal disorders, not elsewhere classified; M46.1 Sacroiliitis, not elsewhere classified; Z45.1 Encounter for adjustment and management of infusion pump
CPT/HCPCS: 62370; 99213

== ENCOUNTER → 2024-12-03 13:09 | Outpatient (BNVA) | payer MEDICARE, MEDICAID, SELFPAY | PROVIDERS: PCP Internal Medicine; Visit Provider Anesthesiology | DX: Z45.1 Encounter for adjustment and management of infusion pump (principal); M54.51 Vertebrogenic low back pain; M47.26 Other spondylosis with radiculopathy, lumbar region; M53.3 Sacrococcygeal disorders, not elsewhere classified; M46.1 Sacroiliitis, not elsewhere classified; M51.369 Other intervertebral disc degeneration, lumbar region without mention of lumbar back pain or lower extremity pain; G89.4 Chronic pain syndrome; M15.9 Polyosteoarthritis, unspecified; R60.0 Localized edema; R10.9 Unspecified abdominal pain | CPT/HCPCS: 62370; 99212 ==

== ENCOUNTER 2024-12-25 12:22 | Outpatient (AMB) | payer MEDICARE, MEDICAID, SELFPAY ==
--- NOTE | 2024-12-25 12:24 | MHC.OFFVIS ---
Vital Signs 12/25/24 12:25 Height 5 ft 2 in Weight 175 lb BMI 32.0 BP 140/78 H Blood Pressure Location Lt brachial Position Sitting Pulse 56 Pulse Oximetry (%) 97 Oxygen Delivery Method Room Air Intake Visit Reasons: follow up Intake Note: Patient follow up for abdominal bloating, blayne was 09/27/2023. Patient cc: upper abdominal pain with bloating, poor appetite, acid reflex with burning sensation, couples of weeks she felt with choking sensation, between diarrhea and constipation. Slag Production Worker Required: No Accompanied by: Family/Other Allergies Seasonal Allergies Allergy (Mild, Verified 02/05/25 13:28) Unknown Medication List - Last Reconciled 12/25/24 by Sherri Britton MD acetaminophen ER 650 mg PO DAILY albuterol sulfate 90 mcg/actuation (Ventolin HFA) 2 puffs PO Q4H PRN arformoterol (Brovana) 2 mL inhalation BID 30 days ascorbic acid (vitamin C) 250 mg PO DAILY atenolol 50 mg PO DAILY budesonide 0.5 mg (2 mL) inhalation BID 30 days calcium polycarbophil (Fiber-Lax) mg PO cetirizine 10 mg PO DAILY chlorthalidone 50 mg PO DAILY cholecalciferol (vitamin D3) 50 mcg PO DAILY clonazepam 0.5 mg PO DAILY doxepin 50 mg PO BEDTIME escitalopram oxalate 10 mg PO DAILY ferrous gluconate 240 mg PO Q OTHER DAY fluticasone propionate 50 mcg/actuation 1 spray intranasal BID hydrocortisone 2.5% 1 appl OH BID-QID PRN 30 days ipratropium-albuterol 0.5 mg-3 mg(2.5 mg base)/3 mL 3 mL inhalation Q4-6H PRN 30 days loperamide 2 mg PO Q6H PRN losartan 100 mg PO DAILY lubiprostone (Amitiza) 16 mcg (2 x 8 mcg) PO BID 30 days metformin 500 mg PO BID mupirocin 2% 1 appl topical TID naloxone 4 mg/actuation 4 mg intranasal Q2M PRN 1 day omeprazole 40 mg PO BID 30 days pantoprazole 40 mg PO BID pregabalin 150 mg PO BID 30 days simvastatin 40 mg PO BEDTIME zolpidem 10 mg PO BEDTIME PRN HPI HPI follow up: Details: GI CLINIC VISIT FOR THIS 63-YEAR-OLD ICELANDIC-SPEAKING FEMALE FOR FU OF ABD PAIN: ? 1. Epigastric pain - R10.13 (Primary) ? 2. Gastroesophageal reflux disease without esophagitis - K21.9 ? 3. Abdominal bloating - R14.0 ? 4. Colon cancer screening - Z12.11 Last GI clinic visit was on 09/27/2023 ? ??TODAY'S VISIT ?Accompanied by Chanda, niece and [employer]ICE INSTALLER who interpreted for the patient. CC: Patient cc: upper abdominal pain with bloating, poor appetite, acid reflex with burning sensation, couples of weeks she felt with choking sensation, between diarrhea and constipation. Complains of abdominal pain x 3 months. Complains of diarrhea alternating with constipation. Prescribed a fibre supplement which is not helping Tried Mylanta which helped a little bit. Complains of 10/10 cramping upper abdominal pain and radiates laterally to the back Pain is constant and gets worse with eating. Complains of early satiety and trouble breathing after she eats. Some days she has diarrhea (3 times a week) and some days she is constipated. Stool can be intermittently dark/black Denies blood in the stools or wt loss Pt uses an implanted pump for back pain - connects to the pump every 3 hours (Hydromorphone 0.75 mg/ml and Bupivacaine 7 mg/ml dose of her PTM medication from 167 micro g of hydromorphone at a time with corresponding dose of bupivacaine to 189.9 micro g per application with corresponding dose of bupivacaine which she can use every 3 hours 5 times a day. PAST VISIT: After that constipation episode she started having diarrhea she states for a week. The pain never goes away Taking Omeprazole twice a day Loss of appetite and barely eat. Eats a little bit and feels very full Has diarrhea which does not stop and is dark in color. Can have 5 Bms a day Went 3 times last night Had an episode of fecal incontinence. Stools are slimy and she felt scared. EGD and Colon results reviewed Continues to have constipation Feels a ball comes out and her hemorrhoids came out. Today she reports she has to strain when she is having a BM and she feels like a ball coming out of her rectum. Seen by PCP and prescribed a suppositories Can have intermittent diarrhea sometimes with urgency and bowel accidents Complains of intermittent regurgitation and heartburn Has been having a lot of diarrhea x 6 weeks and has to use pampers. Notes lower abdominal cramps followed by diarrhea BMs can be watery and sometimes very dark - can have upto 3 BMs a day. Has stopped taking laxatives and medications for constipation Travelled to [place] for 3 weeks. - had diarrhea before she went to [place]. Fell x 2 while in [place] Pt denies fever or chills and complains of sweating. Appetite has been poor. Denies recent antibiotic use Continues to have acid reflux. Notes lower extremity edema for the past 2 weeks Has been having diffuse abdominal pain x 2 weeks. Feels bloated and distended. Pain is 9/10 and is burning. Unable to eat - able to eat small amounts of food Has 2 BMs a day and sometimes urgency. Notes some decrease in pain after she has a BM. Notes sour bile which comes up. Sometimes she has a lot of pain and is unable to have a BM. Has never used an enema. Denies fever chills or sweating Has been chewing some white pills which did not help Also notes diarrhea - Has been having a lot of lower abdominal pain and pain in her lower back. Passed a soft stool - it was painful [place] bloated and gassy and denies nausea or vomiting. Drinks coffee in the morning and has a BM daily. Took a chewable pill and it helped with pain. Continues to have abdominal pain and constipation. Has a lot of pain when she goes to the bathroom. Stomach gets big and swollen Unable to eat since it hurts too much. Takes 2 chewable tablets when she had the pain. Unable to eat until the following day. Has pain 2 times a week and lasts 45 min to an hour. I have been having abdominal pain. Feels completely full after eating a few bites and unable to eat more Feels bloated. Taking a medication twice a day for pain which helps after a while. Gets a lot of constipation and has to push and has hard stools. Has a BM every 2 weeks. I had a lot of abd pain and I have been constipated. Had to sit on the toilet for an hour last night and was unable to have a BM. Took simethicone and had diarrhea. Abd pain improved after she had a BM Has chronic anemia and denies having periods for the past 10 yrs. Pt states When I eat I get pain in my stomach, I feel like my intestines are twisting inside. It feels like my stomach is very full when I eat. The other day I did have an accident, I couldn't make it in time. Usually I don't have diarrhea that was just one time. But mostly I just get the constipation and the pain in my stomach, my belly gets really big. It feels like my stomach is swelling. I have to constantly take the tums but I think I need a stronger medication for that. She is recuperating from her knee replacement surgery. It hurts a lot.? Has to eat very little when she eats. Denies nausea or vomiting. Stomach is bloated, painful and I have a hard time going to the bathroom. Feels like intestines are twisted up. ? GES results were reviewed with the patient. ? If I dont keep taking my medications I will be in pain ? Does fine if she takes her medications. Can have intermittent bloating. ? Denies constipation and has a BM every other day. ? Feeling good - just some pain due to arthritis. ? Sometimes I get some pain in the stomach and unable to eat. ? If I dont take the medication, I get a lot of pain. ? She feels she gets full very fast. ? Has nausea and denies vomiting. ? Sometimes no BM x 3 days - not taking any medication for constipation. ? Has acid reflux at night and takes TUMS with some relief. ? Notes post prandial abdominal pain. ? Has a BM 3-4 times a day and no BM on some days. ? Not taking the Senna since she does not feel constipation. ? Denies any change in her abd pain with BM and passage of gas. ? Not taking any medication for constipation at present. ? Denies past problems with anesthesia ? IMAGING STUDIES: Oct, [address] SCAN SHOWED: 1. No acute intra-abdominal process seen. 2. Moderate constipation. No obstruction seen. 3. There is a band of soft tissue thickening posterior to the cecum. Itis stable to 2019 exam The appendix is not seen. Question appendix. Correlate with clinical exam. 08/06/20 GASTRIC EMPTYING STUDY SHOWED:? ? ? Retention in the stomach at each time interval was: ? ? ? 1 hour 63% (normal 37%-90%) ? ? ? 2 hours 8% (normal 30%-60%) ? ? ? 3 hours 4% ? ? ? 4 hours (Not Obtained) (normal 0%-10%) IMPRESSION: Normal solid food gastric emptying study. ?08/04/[address] scan showed: ? GASTROINTESTINAL TRACT: There is a duodenal diverticulum adjacent to the pancreas that measures 2 x 2.7 cm. ? Small and large bowel is otherwise unremarkable. ? The stomach is unremarkable. The appendix is not identified. The small and large bowel are unremarkable. ? The appendix is unremarkable. ? ABDOMINAL WALL: No significant hernia is appreciated. ? LYMPH NODES: There are small, small bowel mesentery lymph nodes. No enlarged lymph nodes are seen. ? OSSEOUS STRUCTURES: There are degenerative changes of the spine. ? IMPRESSION: Duodenal diverticulum, otherwise unremarkable exam. ?ENDOSCOPIC PROCEDURES: 10/21/19 COLONOSCOPY SHOWED: ? Ascending Colon A 1.5 to 2 cms flat polyp in the distal AC raised with 2 cc ? of Orise solution and removed with a hot snare ? Transverse Colon - Normal ? Descending Colon Moderate diverticulosis ? Sigmoid Colon Moderate diverticulosis ? Ano-rectum - Moderate internal hemorrhoids ? Colon preparation: Fair despite copious irrigation ? Impression and Post Procedure Diagnosis: ? Colonoscopy Findings: ? One 1.5 to 2 cms hyperplastic polyp removed ? Moderate diverticulosis seen in the left colon ? Moderate hemorrhoids on retroflexed exam. ? Plan: ? Repeat Colonoscopy interval based on path results in 1-2 years due to fair prep. ? Above findings were reviewed with the patient and colon polyps and ? diverticulosis handouts were given in the discharge area ? LETTER SENT ADVISING REPEAT COLONOSCOPY IN 5 YRS - will ask patient to have a stool FIT test checked in the interim due to fair prep. 09/2019 EGD SHOWED: Mild gastritis and gastric biopsies showed mild chronic inactive gastritis and features of reactive gastropathy. No H pylori was detected.Duodenal biopsies were normal. [facility] Medical History (Updated 01/30/25 @ 13:05 by Sherri Britton MD) Osteopenia Asthma-COPD overlap syndrome Lumbar back pain with radiculopathy affecting right lower extremity Sacroiliac joint dysfunction of right side Sacroiliitis Disc degeneration, lumbar HPV test positive Chronic pain syndrome Acute blood loss anemia Hypertension Osteoarthritis of right knee [place] (dyspnea on exertion) Presence of dental bridge Sleep apnea Diabetes Overflow stress urinary incontinence in female Urge incontinence Primary osteoarthritis of hands, bilateral Loose right total knee arthroplasty Hx of carpal tunnel syndrome Pulmonary nodules GERD (gastroesophageal reflux disease) Surgical History Hx of tubal ligation H/O knee surgery History of orthopedic surgery History of arthroplasty of right knee History of pubovaginal sling Hx of colonoscopy History of carpal tunnel release of both wrists History of esophagogastroduodenoscopy (EGD) Previous back surgery History of endometrial ablation Hx of section Family History Mother Diabetes Arthritis Brother Cancer Paternal Aunt Breast cancer Social History Household Members: None Housing: Apartment Are you a primary medicare contact specialist to a significant other at home: No Do you presently have visiting nurse or other home services: Yes ([employer] INST[employer]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) Alcohol intake: former Year quit: 2017 Comment: pt sleeping Patient Tobacco Use Status: Current everyday Tobacco user Tobacco use type: Cigarette Cigarettes Per Day: 5 Years Smoked: 2014 Second Hand Smoke Exposure: No Substance Use Type: Crack/Cocaine and Marijuana service: No Current occupational status: disabled Current occupation: rt handed Female Reproductive History Menstrual Age of Menarche: 11 Review of Systems Const Reports fatigue, Denies fever(s), Reports headache(s), Reports weight gain and Denies weight loss Eyes Denies eye discharge and Denies irritation ENT Reports Normal hearing present, Denies dysphagia, Denies dizziness and Reports headache(s) Card Reports chest pain, Denies leg edema, Reports dyspnea, Reports dyspnea on exertion and Reports other (Palpitations) Resp Denies cough, Reports dyspnea, Reports dyspnea on exertion and Denies wheezing GI Reports abdominal pain, Reports bloating, Denies change in bowel habits, Reports constipation, Denies dysphagia, Reports heartburn, Reports diarrhea and Reports other (Loss of appetite) Denies difficulty voiding, Denies dysuria and Reports other (Urinary frequency) Musc Denies back pain, Denies arthralgias and Reports other (Arthritis) Skin/Breast Denies pruritus, Denies rash and Denies jaundice Neuro Reports Normal hearing present, Denies Abnormal speech present, Denies dizziness, Reports headache(s) and Denies seizure-like activity Psych Reports anxiety, Reports depression and Denies panic attacks Endo Denies cold intolerance, Reports fatigue, Denies flushing and Denies heat intolerance Jim/Lymph Denies easy bleeding and Denies easy bruising Aller/Immun Denies wheezing Physical Exam Vital Signs: Last Vital Signs Pulse 56 12/25/24 12:25 BP 140/78 H 12/25/24 12:25 Pulse Ox 97 12/25/24 12:25 Oxygen Delivery Method Room Air 12/25/24 12:25 BMI result Body Mass Index 32.0 Const General: no acute distress Nutritional Appearance: obese Orientation/consciousness: patient oriented x3 Limitations: language barrier HEENT Head: Yes normal to inspection Ears: hearing grossly normal bilaterally Eyes Sclerae: sclerae normal Pupils: Equal, round and reactive pupils present Neck Neck: Yes normal visual inspection Chest Chest palpation & inspection: normal inspection of the chest Resp Effort & Inspection: normal respiratory effort Auscultation: clear to auscultation bilaterally Cardio Palpation: normal PMI Rate: regular rate Rhythm: regular rhythm Heart sounds: S1 normal heart sound present, S2 normal heart sound present and no murmurs GI Inspection: Yes distended and Yes obesity Palpation (GI): Soft to palpation, Tenderness to palpation present (GI) (mild epigastric tenderness without rebound) and No hepatosplenomegaly present Auscultation: normal bowel sounds Rectal Exam - Female: deferred Skin General skin exam: no rashes or lesions noted Neuro General: patient oriented x3, gait normal and moves all extremities Cranial nerves: Yes Equal, round and reactive pupils present and Yes Normal hearing present Speech: No Abnormal speech present Psych Appearance: grossly normal Mental Status: mental status grossly normal Assessment & Plan Assessment & Plan (1) GERD (gastroesophageal reflux disease): Code(s): K21.9 - Gastro-esophageal reflux disease without esophagitis Category: Medical (2) Epigastric pain: Code(s): R10.13 - Epigastric pain Category: Medical (3) Duodenal diverticulum: Code(s): K57.10 - Diverticulosis of small intestine without perforation or abscess without bleeding Category: Medical (4) Abdominal bloating: Code(s): R14.0 - Abdominal distension (gaseous) Category: Medical (5) Colon cancer screening: Comment: 10/11/19 Colonoscopy showed One 1.5 to 2 cms hyperplastic polyp removed, Moderate diverticulosis seen in the left colon and moderate hemorrhoids on retroflexed exam. advised repeat colon in 5 yrs - 02/2020 A stool FIT test was checked due to fair prep and was negative. Code(s): Z12.11 - Encounter for screening for malignant neoplasm of colon Category: Medical (6) Early satiety: Code(s): R68.81 - Early satiety Category: Medical (7) Anemia: Code(s): D64.9 - Anemia, unspecified Category: Medical (8) Abdominal bloating: Code(s): R14.0 - Abdominal distension (gaseous) Category: Medical (9) Chronic diarrhea: Code(s): K52.9 - Noninfective gastroenteritis and colitis, unspecified Category: Medical (10) Abdominal pain: Code(s): R10.9 - Unspecified abdominal pain Category: Medical (11) Elevated fecal calprotectin: Code(s): R19.5 - Other fecal abnormalities Category: Medical Plan 64-year-old Kazakh-speaking female with hypertension, depression, chronic obstructive pulmonary disease (COPD), erosive osteoarthritis of hands, mild lumbar spondylosis, b/l carpal tunnel syndrome, Bilateral knee OA, Asthma, Constipation, Dyspepsia, microscopic hematuria followed in GI for GERD, abdominal pain with bloating and colon cancer screening - Abdominal pain and bloating is likely related to chronic constipation or related to duodenal diverticulum. No pancreatic or biliary source found on recent CT scan. Patient complains of early satiety and a gastric emptying study was normal. Patient was prescribed Linzess for constipation during her last visit and denies getting this medication from the pharmacy. Linzess was prescribed again and I requested Phoebe, GI RN, to check with the pharmacy to confirm it is availabl Pt denies improvement in constipation with Linzess - pt was switched to Lubiprostone 16 mcg twice daily for constipation. Oct [address] scan was performed and results as noted above. 03/30/23 EGD (evaluation of abd pain and FU of duodenal diverticulum) and Colon (abd pain, diarrhea, anemia and fair prep on past colon) performed results as noted above 06/15/23 patient was prescribed MiraLax, senna and Amitiza for constipation 09/27/23 Pt advised to have stools studies for further evaluation of diarrhea 12/25/24 Pt complains of abdominal pain, bloating and constipation with intermittent diarrhea Pt advised to have labs and KUB today She will be scheduled for a CT enterography (elevated fecal calprotectin level in the past) FU in 3 weeks. ADDENDUM: On 12/26/24 @ 08:06 Sherri Britton Wrote To Sherri Britton (2) Please let the patient know her lab tests showed improvement in anemia Abd XRay showed stool in the colon I am sending a prescription for Dulcolax and Miralax She can drink the Miralax over 1-2 days to clean out her colon and see if the abdominal pain and bloating improves Orders: Orders Vitamin B12 and Folate 12/25/24 R10.9 - Unspecified abdominal pain Ferritin 12/25/24 R10.9 - Unspecified abdominal pain XR KUB 12/25/24 R10.9 - Unspecified abdominal pain, K59.09 - Other constipation CT enterography 12/25/24 R19.5 - Other fecal abnormalities Medications: Discontinued omeprazole Discontinued Reason: Duplicate 40 mg PO BID 30 days 60 caps 4RF K21.9 - Gastro-esophageal reflux disease without esophagitis Coding Level of Care Code Est Pt Level 4 (58249) Diagnoses GERD (gastroesophageal reflux disease) K21.9 Epigastric pain R10.13 Duodenal diverticulum K57.10 Abdominal bloating R14.0 Colon cancer screening Z12.11 Early satiety R68.81 Anemia D64.9 Chronic diarrhea K52.9 Abdominal pain R10.9 Elevated fecal calprotectin R19.5 Time Spent (min) 28
[2024-12-25 12:25] VITALS: BP 140/78; PULSE 56; O2SAT 97; BMI 32.0
== END 2024-12-25 13:43 | disposition home or self-care (01) ==
LOC: HO.HGI 12:23
PROVIDERS: PCP Internal Medicine; Visit Provider Internal Medicine Gastroenterology
DX: K21.9 Gastro-esophageal reflux disease without esophagitis (principal); R10.13 Epigastric pain; K57.10 Diverticulosis of small intestine without perforation or abscess without bleeding; R14.0 Abdominal distension (gaseous); R68.81 Early satiety; D64.9 Anemia, unspecified; K52.9 Noninfective gastroenteritis and colitis, unspecified; R10.9 Unspecified abdominal pain; R19.5 Other fecal abnormalities
CPT/HCPCS: 99214

== ENCOUNTER 2024-12-25 12:22 | Outpatient (REF) | payer MEDICARE, MEDICAID, SELFPAY ==
--- NOTE | ~2024-12-25 | XR_ITS ---
EXAMINATION: XR ABDOMEN 1 VIEW (KUB) HISTORY: R10.9 - Unspecified abdominal pain COMPARISON: Comparison is made with the prior examination dated 12/22/2022. FINDINGS: Two supine views of the abdomen are submitted. The bowel gas pattern is unremarkable, without evidence of mechanical obstruction. No abnormal calcifications are identified. There are no abnormal soft tissue masses. There is degenerative disc disease of the spine. A spinal stimulator is again seen in place. The device overlies the right iliac wing, also without change. XR/XR KUB IMPRESSION: Unremarkable bowel gas pattern. Electronically signed by: Sunil Mohan MD 12/26/2024 08:46 AM EDT
[2024-12-25 14:04] LABS: MANUAL DIFF FLAG NO
[2024-12-25 15:13] LABS: Basophils Absolute Auto 0.1 X10*3/uL (0.0-0.2); Basophils Percent Auto 0.6 % (0-2); Eosinophils Absolute Auto 0.2 X10*3/uL (0.0-0.4); Eosinophils Percent Auto 2.8 % (0-4); Hematocrit 35.9 % (37.0-47.0); Hemoglobin 11.8 g/dl (12.0-16.0); Imm Gran Abs Auto 0.03 X10*3/uL (0.00-0.03); Imm Gran Pct Auto 0.4 % (0.0-0.4); Lymphocytes Absolute Auto 2.1 X10*3/uL (1.2-4.9); Lymphocytes Percent Auto 26.4 % (20-40); Mean Corpuscular HGB Conc 32.9 g/dl (31.0-35.0); Mean Corpuscular Hemoglobin 30.6 pg (27.0-33.0); Mean Corpuscular Volume 93.2 fL (80.0-98.0); Mean Platelet Volume 11.3 fL (9.4-12.3); Monocytes Absolute Auto 0.6 X10*3/uL (0.1-1.2); Monocytes Percent Auto 7.1 % (2-11); Neutrophils Absolute Auto 4.9 x10*3/uL (2.0-8.3); Neutrophils Percent Auto 62.7 % (45-73); Platelet Count 283 X10*3/uL (160-400); Red Blood Count 3.85 X10*6/uL (4.20-5.50); Red Cell Distribution Width 12.9 % (11.0-16.0); White Blood Count 7.9 X10*3/uL (4.8-10.8)
[2024-12-25 15:55] LABS: Alanine Aminotransferase 14 U/L (0-31); Albumin Level 3.9 g/dL (3.5-5.0); Alkaline Phosphatase 57 U/L (39-117); Anion Gap 10 (12-20); Aspartate Amino Transferase 21 U/L (5-31); Bilirubin Total 0.3 mg/dL (0.0-1.0); Blood Urea Nitrogen 15 mg/dL (9-16); Calcium 10.1 mg/dL (8.4-10.2); Carbon Dioxide 34 mmol/L (22-29); Chloride 98 mmol/L (96-108); Estimated Glomerular Filt Rate 59; Glucose Random 90 mg/dL (60-115); Potassium 4.8 mmol/L (3.3-5.1); Sodium 137 mmol/L (135-145); Total Protein 7.1 g/dL (6.5-8.0)
[2024-12-25 16:11] LABS: Ferritin 51 ng/mL (10-250)
[2024-12-25 16:20] LABS: Lipase 20 U/L (8-78)
[2024-12-25 16:23] LABS: Folate 5.3 ng/mL (> or = 4.0); Vitamin B12 337 pg/mL (200-900)
== END 2024-12-25 12:23 | disposition home or self-care (01) ==
LOC: HO.XRAY 12:22
PROVIDERS: Registered Nurse; PCP Internal Medicine; Visit Provider Internal Medicine Gastroenterology
DX: K21.9 Gastro-esophageal reflux disease without esophagitis (principal); R10.13 Epigastric pain; K57.10 Diverticulosis of small intestine without perforation or abscess without bleeding; R14.0 Abdominal distension (gaseous); R68.81 Early satiety; D64.9 Anemia, unspecified; K52.9 Noninfective gastroenteritis and colitis, unspecified; R10.9 Unspecified abdominal pain; R19.5 Other fecal abnormalities; K59.09 Other constipation
CPT/HCPCS: 36415; 74018; 80053; 82607; 82728; 82746; 83690; 85025; 99212

== ENCOUNTER → 2024-12-25 14:02 | Outpatient (BNV) | payer MEDICARE, MEDICAID, SELFPAY | PROVIDERS: PCP Internal Medicine; Visit Provider Radiology Diagnostic Radiology | DX: R14.0 Abdominal distension (gaseous) (principal) | CPT/HCPCS: 74018 ==

== ENCOUNTER 2025-01-19 13:05 | Outpatient (REF) | payer MEDICARE, MEDICAID, SELFPAY ==
--- NOTE | ~2025-01-19 | CT_ITS ---
EXAMINATION: CT ENTEROGRAPHY ABDOMEN AND PELVIS WITH CONTRAST CLINICAL INFORMATION: Chronic constipation. COMPARISON: None available. TECHNIQUE: Study performed with oral VoLumen (1350 mL) and 480 mL of water to distend the abdomen. The patient was injected with 85 mL Omnipaque 350 intravenous contrast which was administered without adverse effect. Coronal and sagittal reformatted images were obtained at the technologist's workstation. This CT examination was performed using dose optimization techniques as appropriate, variously including the following: *Automated exposure control *Adjustment of mA and/or kV according to patient size (this includes techniques or standardized protocols for targeted exams where dose is matched to indication/reason for exam; i.e. extremities or head) *Use of iterative reconstruction technique DLP: [id number] FINDINGS: LUNG BASES: Heart size is normal. There is mild atelectatic changes in the right middle lobe and lingula. No pericardial or pleural effusion seen. GASTROINTESTINAL FINDINGS: Stomach: The stomach is partially distended with fluid's and appears unremarkable. No wall thickening or intraluminal filling defects seen. Small intestine: Nonspecific mild thickening of the second and third segment duodenum and proximal jejunum is noted on images 30/3 through 37/3 rest of the small bowel loops are unremarkable. Large intestine: Scattered stool is seen in colon without distention. The ileocecal junction is normal. Appendix is not visualized with certainty. Additional findings: No abnormal enhancement of the vasa recta or significant mesenteric or retroperitoneal lymphadenopathy is seen. No abdominal abscess or fistulous tract demonstrated. ABDOMINAL AND PELVIC CT FINDINGS: Liver, gallbladder, biliary tract: The liver is normal size, contour and density. There is a punctate calcification left hepatic lobe, nonspecific. No intrahepatic ductal dilatation seen. The gallbladder is unremarkable. Pancreas: Unremarkable. Spleen: Unremarkable. Adrenal glands and kidneys: Unremarkable. Ureters and bladder: Unremarkable Lymphovascular structures: Small shotty lymph nodes in the retroperitoneum.. Bones: There is mild degenerative disc changes with vacuum disc phenomena L4-5, L3-4 and L1-2 disc levels. There is mild ventral spondylosis throughout lumbar spine. No aggressive lytic or sclerotic process seen. Grade 1 anterolisthesis L4 over L5 is noted. CT/CT enterography IMPRESSION: Mild mural thickening of second and third duodenum and proximal jejunal. Likely inflammatory or infectious etiology. Rest of the small bowel loops is unremarkable. Mild constipation. Appendix is not seen. Electronically signed by: Gen Hanny MD 01/19/2025 05:13 PM EDT RP
--- OUTSIDE RECORDS SUMMARY | 2025-01-19 15:00 | XMS_ITS | Encounter Summary ---
Author Organization [employer] Address [address] [place] [address] Care Team Providers Care Human Resources Mgr Name Role Phone Sofia Montalvo MD Primary Care Provide r Encounter Details Date Type Department Care Team ([facility] st Contact Info) Description 03/13/2024 Telephone [facility] [address], [place] [phone] Sofia Montalvo MD [address] [place], [place] [phone] Social History Tobacco Use Types Packs/Day Years [...] Care Team (Late st Contact Info) Description 01/22/2025 2:30 PM EDT Office Visit [facility] [address] [place] [phone] Andrey De Jesus DDS [address] [place] [phone] 02/26/2025 1:00 PM EDT Clinical Support [facility] [address] [place] [phone] Crystal Head, MICHELLE 03/30/2025 10:30 AM EDT Telemedicine [facility] [address] [place] [phone] 06/22/2025 3:00 PM EDT Office Visit [facility] [address] [place] [phone] Socorro Johnson documented as of this encounter Visit Diagnoses Not on filedocumented in this encounter Care Teams Human Resources Mgr Relationship Specialty Start Date End Date Sofia Montalvo MD [address] [place] [phone] PCP - General Family Medicine 09/23/21 documented as of this encounter
--- OUTSIDE RECORDS SUMMARY | 2025-01-19 15:00 | XMS_ITS | Encounter Summary ---
Author Organization [employer] Address [address] [place] [address] Care Team Providers Care Mechanic Welder Truck Driver Name Role Phone Sofia Montalvo MD Primary Care Provide r Encounter Details Date Type Department Care Team (Late Contact Info) Description 10/20/2022 Orders Only [facility] [address] [place] [phone] Jasmyne Hutchison MD [address] [place] [phone] Blurry vision (Primary Dx) Social History Tobacco [...] Description 01/22/2025 2:30 PM EDT Office Visit [facility] [address] [place] [address] Andrey De Jesus DDS [address] [place] [address] 02/26/2025 1:00 PM EDT Clinical Support [facility] [address] [place] [address] Crystal Head RN 03/30/2025 10:30 AM EDT Telemedicine [facility] [address] [place] [address] 06/22/2025 3:00 PM EDT Office Visit [facility] [address] [place] [address] Socorro Johnson documented as of this encounter Visit Diagnoses Diagnosis Blurry vision- Primary Other specified visual disturbances documented in this encounter Care Teams Mechanic Welder Truck Driver Relationship Specialty Start Date End Date Sofia Montalvo MD [address] [place] [phone] PCP - General Family Medicine 09/23/21 documented as of this encounter
--- OUTSIDE RECORDS SUMMARY | 2025-01-19 15:00 | XMS_ITS | Encounter Summary ---
Author Organization [employer] Address [address] [place] [address] Care Team Providers Care Rubber Compounder Name Role Phone Sofia Montalvo MD Primary Care Provide r Encounter Details Date Type Department Care Team ([facility] st Contact Info) Description 12/09/2024 Telephone [facility] [address] [place], [place] [phone] Sofia Montalvo MD [address] [place], [place] [phone] Social History Tobacco Use Types Packs/Day Years [...] Description 01/22/2025 2:30 PM EDT Office Visit [facility] [address] [place] [phone] Andrey De Jesus DDS [address] [place] [phone] 02/26/2025 1:00 PM EDT Clinical Support [facility] [address] [place] [phone] Crystal Head, MICHELLE 03/30/2025 10:30 AM EDT Telemedicine [facility] [address] [place] [phone] 06/22/2025 3:00 PM EDT Office Visit [facility] [address] [place] [phone] Socorro Johnson documented as of this encounter Visit Diagnoses Not on filedocumented in this encounter Care Teams Rubber Compounder Relationship Specialty Start Date End Date Sofia Montalvo MD [address] [place] [phone] PCP - General Family Medicine 09/23/21 documented as of this encounter
--- OUTSIDE RECORDS SUMMARY | 2025-01-19 15:00 | XMS_ITS | Encounter Summary ---
Author Organization [employer] Address [address] [facility] [address] 7t [place] [address] Care Team Providers Care Carding Machine Feeder Name Role Phone Sofia Montalvo MD Primary Care Provide r Encounter Details Date Type Department Care Team (Latest Contact Info) Description 01/21/2019 Abstract [facility] CONVERSIONS Dental, Provider, DDS Social History [...] Upcoming Encounters Date Type Department Care Team ( st Contact Info) Description 01/22/2025 2:30 PM EDT Office Visit [facility] ADULT DENTAL [address] [place] [phone] Andrey De Jesus DDS [address] [place] [address] 02/26/2025 1:00 PM EDT Clinical Support [facility] MEDICINE [address] [place] [address] Crystal Head RN 03/30/2025 10:30 AM EDT Telemedicine [facility] MEDICINE [address] [place] [address] 06/22/2025 3:00 PM EDT Office Visit [facility] ADULT DENTAL [address] [place] [address] Socorro Johnson documented as of this encounter Visit Diagnoses Not on filedocumented in this encounter Care Teams Carding Machine Feeder Relationship Specialty Start Date End Date Sofia Montalvo MD [address] [place] [address] PCP - General Family Medicine 09/23/21 documented as of this encounter
--- OUTSIDE RECORDS SUMMARY | 2025-01-19 15:00 | XMS_ITS | Encounter Summary ---
Author Organization [employer] Address [address] [facility] [address] 7t [place] [address] Care Team Providers Care Publications Designer Name Role Phone Sofia Montalvo MD Primary Care Provide r Reason for Visit * Reason Onset Date Comments Durable Medical Equipment 12/31/2024 Encounter Details Date Type Department Care Team ([facility] Contact Info) Description 12/31/[address] [facility] MEDICINE [address] [place], [place] [phone] Sofia Montalvo MD [address] [place], [place] [phone] Durable Medical Equipment Social History Tobacco Use Types Packs/Day Years Used Date Smoking Tobacco: Every Day Cigarettes 0.3 1 Passive Smoke Exposure: Current Smokeless Tobacco: Never Alcohol Use Standard Drinks/Week Comments Yes 0 (1 standard drink = 0.6 oz pur e alcohol) weekends Alcohol Answer Date Recorded How often do you have a drink containing alcohol ? 4 12/15/2024 How many drinks containing a lcohol do you have on a typical day when you are drinking? 2 12/15/2024 How often do you have six or more drinks on one occasion? 4 12/15/2024 Depression Answer Date Recorded Patient Health Questionnaire-9 Score 15 12/15/2024 Patient Health Questionnaire-9 Score 15 12/15/2024 Last PHQ-9: Questionnaire Data Not on file 0 12/15/2024 Housing Stability Answer Date Recorded What is your housing situation today? I have josé landry 12/15/[address] you li ve. Do you have problems with any of the following? None of the above 12/15/2024 Food Insecurity Answer Date Recorded Within the past 12 months, y ou worried that your food would run out before you got money to buy more: Never True 12/15/2024 Within the past 12 months,th e food you bought just didn't last and you didn't have enough money to get more: Never True 07/2025 Transportation Answer Date Recorded In the past 12 months, has l ack of transportation kept you from medical appts, meetings, work or from getting things needed for daily living? No 12/15/2024 Utilities Answer Date Recorded In the past 12 months, has t he electric, gas, oil or water company threatened to shut off services in your home? No 12/15/2024 Depression Answer Date Recorded Patient Health Questionnaire-2 Score 4 12/15/2024 Internet Access Answer Date Recorded Internet Access Q1 Yes 12/15/2024 Internet Access Q2 Not on file 12/15/2024 Comments Unknown Sex and Gender Information Value Date Recorded Sex Assigned at Female 08/07/2022 10:19 AM EDT Legal Sex Female 10:19 AM EDT Gender Identity Female 08/07/2022 10:19 AM EDT Sexual Orientation Choose not to disclose 2021 10:19 AM EDT documented as of this encounter Miscellaneous Notes * Telephone Encounter - Unique Espinosa - 01/15/2025 11:27 AM EDT Form is currently pending with provider. * Telephone Encounter - Smitha Fournier - 01/15/2025 10:53 AM EDT Pt walked in very upset she is asking if theres any update. * Telephone Encounter - Ashly Fried - 01/13/2025 1:57 PM EDT Tc from pt ORTHOTIC/PROSTHETIC PRACTITIONER requesting status of prior message. * Telephone Encounter - Karly Churchill MA - 01/12/2025 1:25 PM EDT DME for disposable adult pull up (large) and disposable underpads from [employer] received andis being processed. Placed on provider's desk for signature. * Telephone Encounter - Unique Espinosa - 01/07/2025 2:32 PM EDT Call was made to [employer] will resend form to this writers attention for review and provider signature. * Telephone Encounter - Ashly Fried - 01/05/2025 3:33 PM EDT Tc from pt stating called to [employer] and states they sent a form to the PCP on 01/02 to be signed. Pt states needs supplies felicity. * Telephone Encounter - Lore Larsen MA - 12/31/2024 11:06 AM EDT DME- For pull ups, bed pads wipes and gloves signed and fax. documented in this encounter Plan of Treatment Upcoming Encounters Date Type Department Care Team (Late st Contact Info) Description 01/22/2025 2:30 PM EDT Office Visit [facility] ADULT DENTAL [address] [place] [address] Andrey De Jesus DDS [address] [place] [address] 02/26/2025 1:00 PM EDT Clinical Support [address] [address] Crystal Head RN 03/30/2025 10:30 AM EDT Telemedicine [address] [address] 06/22/2025 3:00 PM EDT Office Visit [facility] ADULT DENTAL [address] [place] [address] Socorro Johnson documented as of this encounter Visit Diagnoses Not on filedocumented in this encounter Additional Health Concerns Assessment Noted Time PHQ-9 Depression Total Score: 15 025 1:50 PM EDT documented as of this encounter Care Teams Publications Designer Relationship Specialty Start Date End Date Sofia Montalvo MD [address] [place] [address] PCP - General Family Medicine 09/23/21 documented as of this encounter
--- OUTSIDE RECORDS SUMMARY | 2025-01-19 15:00 | XMS_ITS | Encounter Summary ---
Author Organization [employer] Address [address] [facility] [address] 7t [place] [address] Care Team Providers Care Financial Planning Consultant Name Role Phone Sofia Montalvo MD Primary Care Provide r Reason for Visit * Reason Comments Med Refill Encounter Details Date Type Department Care Team ([facility] st Contact Info) Description 01/14/2025 Refill [facility] MEDICINE [address] [place], [place] [phone] Sofia Montalvo MD [address] [place], [place] [phone] Mixed anxiety and depressive disorder Social History Tobacco Use Types Packs/Day Years [...] t he electric, gas, oil or water [email or web address] threatened to shut off services in your [...] encounter Miscellaneous Notes * Telephone Encounter - Olivia Jimenez RN - 01/14/2025 3:32 PM EDT [facility] reviewed, pt. Last picked up 30 day supplies of clonazepam and ambien on 12/16/24. Rxs due and pended. PCP off documented in this encounter Plan of Treatment Upcoming Encounters Date Type Department Care Team (Late st Contact Info) Description 01/22/2025 2:30 PM EDT Office Visit [facility] ADULT DENTAL [address] [place] [address] Andrey De Jesus DDS [address] [place] [address] 02/26/2025 1:00 PM EDT Clinical Support [facility] MEDICINE [address] [place] [address] Crystal Head RN 03/30/2025 10:30 AM EDT Telemedicine [facility] MEDICINE [address] [place] [address] 06/22/2025 3:00 PM EDT Office Visit [facility] ADULT DENTAL [address] [place] [address] Socorro Johnson documented as of this encounter Visit Diagnoses Diagnosis Mixed anxiety and depressive disorder Dysthymic disorder documented in this encounter Additional Health Concerns Assessment Noted Time PHQ-9 Depression Total Score: 15 025 1:50 PM EDT documented as of this encounter Care Teams Financial Planning Consultant Relationship Specialty Start Date End Date Sofia Montalvo MD [address] [place] [address] PCP - General Family Medicine 09/23/21 documented as of this encounter
--- OUTSIDE RECORDS SUMMARY | 2025-01-19 15:00 | XMS_ITS | Encounter Summary ---
Author Organization [employer] Address [address] 7t [place] [address] Care Team Providers Care Electric Car Operator Name Role Phone Sofia Montalvo MD Primary Care Provide r Reason for Visit * Reason Comments Med Refill Encounter Details Date Type Department Care Team ([facility] st Contact Info) Description 08/23/2023 Refill [facility] MEDICINE [address] [place], [place] [phone] Sofia Montalvo MD [address] [place], [place] [phone] Other chronic pain Social History Tobacco Use [...] Description 01/22/2025 2:30 PM EDT Office Visit [facility] ADULT DENTAL [address] [place] [address] Andrey De Jesus DDS [address] [place] [address] 02/26/2025 1:00 PM EDT Clinical Support [facility] MEDICINE [address] [place] [address] Crystal Head, MICHELLE 03/30/2025 10:30 AM EDT Telemedicine [address] [address] 06/22/2025 3:00 PM EDT Office Visit [facility] ADULT DENTAL [address] [place] [address] Socorro Johnson documented as of this encounter Visit Diagnoses Diagnosis Other chronic pain documented in this encounter Care Teams Electric Car Operator Relationship Specialty Start Date End Date Sofia Montalvo MD [address] [place] [address] PCP - General Family Medicine 09/23/21 documented as of this encounter
--- OUTSIDE RECORDS SUMMARY | 2025-01-19 15:00 | XMS_ITS | Encounter Summary ---
Author Organization [employer] Address [address] [address] [facility] [address] 7t [place] [address] Care Team Providers Care Health Unit Supervisor Name Role Phone Sofia Montalvo MD Primary Care Provide r Encounter Details Date Type Department Care Team ([facility] Contact Info) Description 07/06/2023 Abstract [facility] MEDICINE [address] [place] [address] [phone] Dayana Erazo Social History Tobacco Use Types [...] Department Care Team (Late Contact Info) Description 01/22/2025 2:30 PM EDT Office Visit [facility] ADULT DENTAL [address] [place] [address] [phone] Andrey De Jesus DDS [address] [place] [address] 02/26/2025 1:00 PM EDT Clinical Support [facility] MEDICINE [address] [place] [address] [phone] Crystal Head RN 03/30/2025 10:30 AM EDT Telemedicine [facility] MEDICINE [address] [place] [address] 06/22/2025 3:00 PM EDT Office Visit [facility] ADULT DENTAL [address] [place] [address] Socorro Johnson documented as of this encounter Procedures Procedure Name Priority Date/Time Associated Diagnosis Comments COLPOSCOPY Routine 06/19/2023 COLONOSCOPY Routine 04/04/2023 BIOPSY CERVIX Routine 01/02/2022 PAP/HPV Routine 01/02/2022 BIOPSY CERVIX Routine 06/07/2021 documented in this encounter Results * Colposcopy (06/19/2023) Historical Provider IN CLINIC/BEDSIDE ORDERAB LES Final Result * Colonoscopy (04/04/2023) Colonoscopy Normal Normal Sherri Britton MD HEALTH MAINTENANCE Final Result * Biopsy cervix (01/02/2022) Historical Provider IN CLINIC/BEDSIDE ORDERAB LES Final Result * Pap Smear (01/02/2022) Pap Negative for intraephithelial lesion or malignancy Negative for intraephithelial lesion or malignancy, Other HPV Detected Historical Provider HEALTH MAINTENANCE Final Result * Biopsy cervix (06/07/2021) Historical Provider IN CLINIC/BEDSIDE ORDERAB LES Final Result documented in this encounter Visit Diagnoses Not on filedocumented in this encounter Care Teams Health Unit Supervisor Relationship Specialty Start Date End Date Sofia Montalvo MD [address] [place] [address] PCP - General Family Medicine 09/23/21 documented as of this encounter
--- OUTSIDE RECORDS SUMMARY | 2025-01-19 15:00 | XMS_ITS | Encounter Summary ---
Author Organization [employer] Address [address] [facility] [address] 7t [place] [address] Care Team Providers Care Ship Laborer Name Role Phone Sofia Montalvo MD Primary Care Provide r Reason for Visit * Reason Comments Med Refill Encounter Details Date Type Department Care Team ([facility] st Contact Info) Description 02/18/2024 Refill [facility] MEDICINE [address] [place], [place] [phone] Sofia Montalvo MD 230 [place], [place] [phone] Chronic diarrhea Social History Tobacco Use Types [...] Description 01/22/2025 2:30 PM EDT Office Visit [facility] ADULT DENTAL [address] [place] [address] Andrey De Jesus DDS [address] [place] [address] 02/26/2025 1:00 PM EDT Clinical Support [facility] MEDICINE [address] [place] [address] Crystal Head, MICHELLE 03/30/2025 10:30 AM EDT Telemedicine [address] [address] 06/22/2025 3:00 PM EDT Office Visit [facility] ADULT DENTAL [address] [place] [address] Socorro Johnson documented as of this encounter Visit Diagnoses Diagnosis Chronic diarrhea Diarrhea documented in this encounter Care Teams Ship Laborer Relationship Specialty Start Date End Date Sofia Monatlvo MD [address] [place] [address] PCP - General Family Medicine 09/23/21 documented as of this encounter
--- OUTSIDE RECORDS SUMMARY | 2025-01-19 15:00 | XMS_ITS | Encounter Summary ---
Author Organization [employer] Address [address] 7t [place] [address] Care Team Providers Care Rotary Soil Stabilizer Name Role Phone Sofia Montalvo MD Primary Care Provide r Encounter Details Date Type Department Care Team (Latest Contact Info) Description 12/20/2020 Abstract [facility] CONVERSIONS Dental, Provider, DDS Social [...] Description 01/22/2025 2:30 PM EDT Office Visit [facility] ADULT DENTAL 230 [place] [address] Andrey De Jesus DDS [address] [place] [address] 02/26/2025 1:00 PM EDT Clinical Support [facility] MEDICINE [address] [place] [phone] Crystal Head RN 03/30/2025 10:30 AM EDT Telemedicine [facility] MEDICINE [address] [place] [address] 06/22/2025 3:00 PM EDT Office Visit [facility] ADULT DENTAL [address] [place] [address] Socorro Johnson documented as of this encounter Visit Diagnoses Not on filedocumented in this encounter Care Teams Rotary Soil Stabilizer Relationship Specialty Start Date End Date Sofia Montalvo MD [address] [place] [address] PCP - General Family Medicine 09/23/21 documented as of this encounter
--- OUTSIDE RECORDS SUMMARY | 2025-01-19 15:00 | XMS_ITS | Encounter Summary ---
Author Organization [employer] Address [address] [facility] [address] [address] 7t [place] [address] Care Team Providers Care Corporate Sales Trainer Name Role Phone Sofia Montalvo MD Primary Care Provide r Reason for Visit * Reason Comments Med Refill Encounter Details Date Type Department Care Team ([facility] Contact Info) Description 09/29/2022 Refill [facility] MED & PEDS [address] [place], [place] [phone] Mandie Burton, ANP [address] [place] [address] Social History Tobacco Use Types Packs/Day Years [...] Upcoming Encounters Date Type Department Care Team ([facility] Contact Info) Description 01/22/2025 2:30 PM EDT Office Visit [facility] ADULT DENTAL 230 [place], [place] [phone] Andrey De Jesus DDS 230 [place] [address] 02/26/2025 1:00 PM EDT Clinical Support [facility] MEDICINE [address] [place] [address] Crystal Head, RN 03/30/2025 10:30 AM EDT Telemedicine [facility] MEDICINE [address] [place] [address] 06/22/2025 3:00 PM EDT Office Visit [facility] ADULT DENTAL [address] [place] [address] [phone] Socorro Johnson documented as of this encounter Visit Diagnoses Not on filedocumented in this encounter Care Teams Corporate Sales Trainer Relationship Specialty Start Date End Date Sofia Montalvo MD [address] [place] [address] PCP - General Family Medicine 09/23/21 documented as of this encounter
--- OUTSIDE RECORDS SUMMARY | 2025-01-19 15:00 | XMS_ITS | Encounter Summary ---
Author Organization [employer] Address [address] [facility] [address] 7t [place] [address] Care Team Providers Care Architectural Manager Name Role Phone Sofia Montalvo MD Primary Care Provide r Encounter Details Date Type Department Care Team (Late Contact Info) Description 07/06/2023 Orders Only [address] [phone] Provider, MD Alli Social History Tobacco Use Types Packs/Day Years [...] Description 01/22/2025 2:30 PM EDT Office Visit [facility] ADULT DENTAL [address] [place] [address] [phone] Andrey De Jesus DDS [address] [place] [address] 02/26/2025 1:00 PM EDT Clinical Support [facility] MEDICINE [address] [place] [address] [phone] Crystal Head RN 03/30/2025 10:30 AM EDT Telemedicine [facility] MEDICINE [address] [place] [address] 06/22/2025 3:00 PM EDT Office Visit [facility] ADULT DENTAL [address] [place] [address] Socorro Johnson documented as of this encounter Procedures Procedure Name Priority Date/Time Associated Diagnosis Comments BIOPSY CERVIX Routine 04/19/2021 documented in this encounter Results * Biopsy cervix (04/19/2021) us Historical Provider MD IN CLINIC/BEDSIDE ORDERAB LES Final Result documented in this encounter Visit Diagnoses Not on filedocumented in this encounter Care Teams Architectural Manager Relationship Specialty Start Date End Date Sofia Montalvo MD [address] [place] [address] PCP - General Family Medicine 09/23/21 documented as of this encounter
--- OUTSIDE RECORDS SUMMARY | 2025-01-19 15:00 | XMS_ITS | Encounter Summary ---
Author Organization [employer] Address [address] [facility] [address] 7t [place] [address] Care Team Providers Care Bowling Or Skating Front Desk Clerk Name Role Phone Sofia Montalvo MD Primary Care Provide r Reason for Visit * Reason Comments Med Refill Encounter Details Date Type Department Care Team ([facility] st Contact Info) Description 02/25/2024 Refill [facility] MEDICINE [address] [place], [place] [phone] Sofia Montalvo MD 230 [place], [place] [phone] Lumbar disc disease Social History Tobacco Use [...] Description 01/22/2025 2:30 PM EDT Office Visit [facility] ADULT DENTAL [address] [place] [address] Andrey De Jesus DDS [address] [place] [address] 02/26/2025 1:00 PM EDT Clinical Support [facility] MEDICINE [address] [place] [phone] Crystal Head, MICHELLE 03/30/2025 10:30 AM EDT Telemedicine [address] [address] 06/22/2025 3:00 PM EDT Office Visit [facility] ADULT DENTAL [address] [place] [address] Socorro Johnson documented as of this encounter Visit Diagnoses Diagnosis Lumbar disc disease Other and unspecified disc disorder of lumbar region documented in this encounter Care Teams Bowling Or Skating Front Desk Clerk Relationship Specialty Start Date End Date Sofia Montalvo MD [address] [place] [address] PCP - General Family Medicine 09/23/21 documented as of this encounter
--- OUTSIDE RECORDS SUMMARY | 2025-01-19 15:00 | XMS_ITS | Encounter Summary ---
Author Organization [employer] Address [address] [facility] [address] 7t [place] [address] Care Team Providers Care Supervisor Cd Area Name Role Phone Sofia Montalvo MD Primary Care Provide r Reason for Visit * Reason Comments Med Refill Encounter Details Date Type Department Care Team ([facility] st Contact Info) Description 08/24/2023 Refill [facility] MEDICINE 230 [place], [place] [phone] Sofia Montalvo MD 230 [place], [place] [phone] Other chronic pain Social History Tobacco Use [...] Description 01/22/2025 2:30 PM EDT Office Visit [facility] ADULT DENTAL [address] [place] [address] Andrey De Jesus DDS [address] [place] [address] 02/26/2025 1:00 PM EDT Clinical Support [facility] MEDICINE [address] [place] [address] Crystal Head, MICHELLE 03/30/2025 10:30 AM EDT Telemedicine [address] [address] 06/22/2025 3:00 PM EDT Office Visit [facility] ADULT DENTAL [address] [place] [address] Socorro Johnson documented as of this encounter Visit Diagnoses Diagnosis Other chronic pain documented in this encounter Care Teams Supervisor Cd Area Relationship Specialty Start Date End Date Sofia Montalvo MD [address] [place] [address] PCP - General Family Medicine 09/23/21 documented as of this encounter
--- OUTSIDE RECORDS SUMMARY | 2025-01-19 15:01 | XMS_ITS | Encounter Summary ---
Author Organization [employer] Address [address] [facility] [address] 7t [place] [address] Care Team Providers Care Business Planning Analyst Name Role Phone Sofia Montalvo MD Primary Care Provide r Reason for Visit * Reason Comments Med Refill Encounter Details Date Type Department Care Team ([facility] st Contact Info) Description 11/28/2024 Refill [facility] MEDICINE 230 [place], [place] [phone] Sofia Montalvo MD 230 [place], [place] [phone] Chronic diarrhea Social History Tobacco Use Types [...] Description 01/22/2025 2:30 PM EDT Office Visit [facility] ADULT DENTAL [address] [place] [address] Andrey De Jesus DDS [address] [place] [address] 02/26/2025 1:00 PM EDT Clinical Support [facility] MEDICINE [address] [place] [phone] Crystal Head, MICHELLE 03/30/2025 10:30 AM EDT Telemedicine [address] [address] 06/22/2025 3:00 PM EDT Office Visit [facility] ADULT DENTAL [address] [place] [address] Socorro Johnson documented as of this encounter Visit Diagnoses Diagnosis Chronic diarrhea Diarrhea documented in this encounter Care Teams Business Planning Analyst Relationship Specialty Start Date End Date Sofia Montalvo MD [address] [place] [address] PCP - General Family Medicine 09/23/21 documented as of this encounter
--- OUTSIDE RECORDS SUMMARY | 2025-01-19 15:01 | XMS_ITS | Clinical Summary ---
Author Organization [employer] Address [address] [place] [address] Care Team Providers Care Clerk Funeral Detail Name Role Phone Sofia Montalvo MD Primary Care Provide r Allergies Active Allergy Reactions Criticality Noted Date Comments Ibuprofen 05/29/2017 Medications * This document contains information received from the source organization and may not represent a complete record from that organization. pregabalin (Lyrica) 150 MG capsule Take 1 [...] DIRECTED 100 each 5 06/07/20 23 Active albuterol (2.5 MG/3ML) 0.083% nebulizer solutionIndicat ions:COPD with acute exacerbation (CMS/HCC) Take 3 mL (2.5 mg) by nebulization every 4 (four) hours if needed for wheezing. 75 mL 3 11/05/19 24 Active cetirizine (ZyrTEC) 10 MG tablet TAKE 1 TABLET BY MOUTH EVERYDAY AT NOON 90 tablet 3 02/14/20 24 Active cholecalciferol VITAMIN D (Vitamin D-3) 50 MCG (1999 UT) tablet Take 1 tablet (50 mcg) [...] at bedtime for anxiety. 06/13/20 24 Active naloxone (Narcan) 4 mg/0.1 mL [...] PAIN 60 tablet 3 09/10/20 24 Active polycarbophil (Fibercon) 625 MG tabletIndicatio ns:Chronic [...] mellitus with other specified complication, unspecified whether expeller operator insulin use (CMS/HCC) TAKE 1 TABLET BY MOUTH TWICE DAILY [...] TWICE DAILY 48 g 12/02/19 25 Active doxepin (SINEquan) 50 MG capsule TAKE 1 CAPSULE BY MOUTH AT BEDTIME 30 capsule 5 12/10/19 25 Active escitalopram (Lexapro) 10 MG tablet TAKE 1 TABLET BY MOUTH EVERY MORNING 30 tablet 5 12/10/19 25 Active polyethylene glycol, PEG, 3350 (Miralax) 17 g packetIndicatio ns:Chronic idiopathic constipation Take 17 g by mouth Once per day. 30 packet 11 12/13/19 25 2025 Active docusate sodium (Colace) 100 MG capsuleIndicati ons:Chronic idiopathic constipation Take 1 capsule (100 mg) by mouth 2 times daily. 60 capsule 11 12/13/19 25 2025 Active senna (Senokot) 8.6 MG tabletIndicatio ns:Chronic idiopathic constipation Take 1 tablet (8.6 mg) by mouth at bedtime. 120 tablet 12/13/19 25 Active pantoprazole (Protonix) 40 MG EC tabletIndicatio ns:Gastroesopha geal reflux disease without esophagitis Take 1 tablet (40 mg) by mouth before breakfast and before evening meal. Do not crush, chew, or split. 60 tablet 12/13/19 25 2025 Active simvastatin (Zocor) 40 MG tabletIndicatio ns:Hypertriglyc eridemia TAKE 1 TABLET BY MOUTH AT BEDTIME 30 tablet 12/30/19 25 Active zolpidem (Ambien) 10 MG tabletIndicatio ns:Mixed anxiety and depressive disorder TAKE 1 TABLET BY MOUTH AT BEDTIME NEEDED FOR SLEEP 30 tablet 01/15/20 25 Active clonazePAM (KlonoPIN) 0.5 MG tabletIndicatio ns:Mixed anxiety and depressive disorder TAKE 1 TABLET BY MOUTH TWICE DAILY 60 tablet 01/15/20 25 Active simvastatin (Zocor) 40 MG tabletIndicatio ns:Hypertriglyc eridemia Take 1 tablet (40 mg) by mouth at bedtime. 30 tablet 01/17/20 24 2024 Discontinued doxycycline (Vibra-Tabs) 100 MG tabletIndicatio ns:Folliculitis Take 1 tablet (100 mg) by mouth 2 times daily for 14 days. Take with a full glass of water and do not lie down for at least 30 minutes after. 28 tablet 12/16/19 25 2024 clonazePAM (KlonoPIN) 0.5 MG tabletIndicatio ns:Mixed anxiety and depressive disorder Take 1 tablet (0.5 mg) by mouth 2 times daily. 60 tablet 12/16/19 25 2024 Discontinued zolpidem (Ambien) 10 MG tabletIndicatio ns:Mixed anxiety and depressive disorder Take 1 tablet (10 mg) by mouth if needed at bedtime for sleep. 30 tablet 12/16/19 25 2024 Discontinued Active Problems Problem Noted Date Diagnosed Date Dental caries 12/17/2024 Dental calculus 12/17/2024 Folliculitis 12/15/2024 Assessment & Plan (12/15/2024 2:33 PM EDT): I will prescribe for patient doxycycline 100 mg twice a day for 14 days Patient already been using ketoconazole shampoo Dermatology referral per patient request Pulmonary nodule 12/15/2024 Assessment & Plan (12/15/2024 2:31 PM EDT): Patient referred to pulmonology Atelectasis 12/15/2024 Assessment & Plan (12/15/2024 2:31 PM EDT): Patient referred to pulmonology Alcohol dependence with alcohol-induced anxiety disorder 12/15/2024 Sebaceous cyst 09/10/2024 Drug-induced constipation 06/30/2024 Assessment & Plan (06/30/2024 2:08 PM EDT): Increase fiber and water on diet I will prescribed lactulose for short term relief I ask patient to reach back to her GI Allergic reaction 01/17/2024 Assessment & Plan (01/18/2024 2:08 PM EDT): I will refer patient to translational specialist for evaluation of face, arm and [...] use of insulin 08/02/2023 Assessment & Plan (12/15/2024 2:32 PM EDT): Diabetes is: controlled - Lab Results Component Value Date HGBA1C 6.2 (A) 12/15/2024 HGBA1C 6.3 (A) 06/30/2024 HGBA1C 6.0 01/17/2024 - Lab Results Component Value Date MICROALBUR 4.8 08/07/2022 CREATININE 0.90 02/11/2024 -Changes: None - Diabetic eye exam: Up-to-date - Diabetic foot exam: Pending - Continue lifestyle modifications - Continue current medications - Follow up: 3 months Assessment & Plan (06/30/2024 2:10 PM EDT): [...] 04/25/2013 Mixed anxiety and depressive disorder 06/13/2012 Assessment & Plan (12/15/2024 2:34 PM EDT): Counseling done N called today for possible initiations of services here Refill of her medications clonazepam and zolpidem done today Tobacco dependence syndrome 06/13/2012 Acquired hypothyroidism 04/05/2012 [...] 09/21/22 via cardiology w/ no ischemia Encounters * This document contains information received from the source organization and may not represent a complete record from that organization. Date Type Department Care Team Description 01/14/2025 Refill [facility] [address] [place] [address] Sofia Montalvo MD Mixed anxiety and depressive disorder 12/31/2024 Telephone [facility] [address] [place] [address] Sofia Montalvo MD Durable Medical Equipment 12/30/[address] [address] Sofia Montalvo MD telephone call 12/29/[address] [address] Sofia Montalvo MD stable lab letter 12/28/[address] [address] Sofia Montalvo MD Hypertriglyceridemia 12/25/2024 Orders Only GENERIC EXTERNAL DATA DEPARTMENT Provider, Generic External Data 12/24/[address] [address] Sofia Montalvo MD Durable Medical Equipment 12/19/[address] [address] Crystal Head, MICHELLE Schedule COUNTER TACKER Initial appt 12/17/2024 11:00 AM EDT Office Visit [facility] [address] [place] [phone] Socorro Johnson Dental calculus (Primary Dx); Dental plaque; Dental caries 12/15/2024 1:30 PM EDT Office Visit [address] [address] Sofia Montalvo MD Folliculitis (Primary Dx); Type 2 diabetes mellitus without complication, without long-term current use of insulin ([facility]); Pulmonary nodule; Atelectasis; Mixed anxiety and depressive disorder 12/12/2024 11:45 AM EST Office Visit [address] [address] [facility] Chronic idiopathic constipation (Primary Dx); Gastroesophageal reflux disease without esophagitis 12/12/2024 Travel 12/12/[address] [address] Sofia Montalvo MD Chart Prep 12/10/[address] [address] Sofia Montalvo MD Nurse Triage 12/09/2024 Telephone [facility] [address] [place] [address] Sofia Montalvo MD 12/09/2024 Refill [facility] [address] [place] [address] Sofia Montalvo MD 12/02/2024 Telephone [facility] [address] [place] [address] Sofia Montalvo MD Durable Medical Equipment (DME Request: Incontinence Supplies) 12/01/2024 Refill [facility] [address] [place] [address] Sofia Montalvo MD Chronic obstructive pulmonary disease, unspecified COPD type ([facility]/HCC) 11/29/2024 Refill [facility] [address] [place] [address] Sofia Montalvo MD Essential hypertension; Iron deficiency anemia, unspecified iron deficiency anemia type 11/28/2024 Refill [facility] [address] [place] [address] Sofia Montalvo MD Chronic diarrhea 11/27/2024 Refill [facility] [address] [place] [address] Sofia Montalvo MD Drug induced constipation 11/20/2024 Telephone [facility] [address] [place] [address] Sofia oMntalvo MD Results 11/20/2024 Orders Only [facility] [address] [place] [address] Sofia Montalvo MD Pulmonary nodules (Primary Dx); Atelectasis 11/18/2024 Telephone [facility] [address] [place] [address] Sofia Montalvo MD Nurse Triage 11/05/2024 Orders Only [facility] External Provider, [facility] 11/02/2024 Refill [facility] [address] [place] [address] Sofia Montalvo MD Essential hypertension 10/30/2024 10:30 AM EST Telemedicine [facility] [address] [place], [place] [phone] Hien Yoon PharmD Type 2 diabetes mellitus without complication, without long-term current use of insulin ([facility]) (Primary Dx); Essential hypertension; Chronic diarrhea; Drug-induced constipation 10/29/2024 Refill [facility] [address] [place], [place] [phone] Sofia Montalvo MD Essential hypertension 10/21/2024 Telephone [facility] [address] [place], [place] [phone] Lore Larsen [place] Durable Medical Equipment from [...] Sign Reading Time Taken Comments Blood Pressure 132/78 12/17/2024 11:20 AM EDT Pulse 61 12/15/2024 1:48 PM EDT Temperature 37.1 ??C (98.7 ??F) 12/15/2024 1:48 PM ED T Respiratory Rate 20 12/15/2024 1:48 PM EDT Oxygen Saturation 98% 12/12/2024 11:58 AM EST Inhaled Oxygen Concentration - - Weight 78.2 kg (172 lb 8 oz) 12/15/2024 1:48 PM EDT Height 157.5 cm (5' 2 ) 12/15/2024 1:48 PM EDT Body Mass Index 31.55 12/15/2024 1:48 PM EDT Plan of Treatment Upcoming Encounters Date Type Department Care Team (Late st Contact Info) Description 01/22/2025 2:30 PM EDT Office Visit [facility] [address] [place] [address] Andrey De Jesus DDS [address] [place] [address] 02/26/2025 1:00 PM EDT Clinical Support [facility] [address] [place] [phone] Crystal Head RN 03/30/2025 10:30 AM EDT Telemedicine [facility] [address] [place] [address] 06/22/2025 3:00 PM EDT Office Visit [facility] [address] [place] [address] Socorro Johnson Health Maintenance Due Date Last Done Comments CT Colonography 1959 Dental X-Ray: Bitewings 1959 Dental X-Ray: Full Mouth 1959 FIT DNA/Cologuard 1959 FIT 1959 FOBT 1960 Sigmoidoscopy 1959 Diabetes: Foot Exam 1969 Hepatitis C Screening 1977 COVID-19 Vaccine ( season) 2024 10/05/2021, 02/11/2021, 01/14/2021 Influenza Vaccine (#1) 2024 , 07/27/2022, 07/28/2021, Additional history exists Lipid Panel 12/23/2024 12/24/2023, 07/10, 09/27/2021, Additional history exists Diabetes: Urine Protein Screening 02/17/2025 02/18/2024, 08/07/2022, 09/27/2021, Additional history exists Depression Monitoring 06/17/2025 12/15/2024, 025 Diabetes: Hemoglobin A1C 06/17/2025 025, 06/30/2024, 01/17/2024, Additional history exists Dental Oral Exam 06/20/2025 12/17/2024, 09/11/2022 Dental Prophylaxis 06/20/2025 12/17/2024, 09/11/2022 Mammogram 09/12/2025 09/12/2024, 06/09, 06/21/2022, Additional history exists Alcohol/Substance Use Screening 12/15/2025 12/15/2024 Depression Screening 12/15/2025 12/15/2024, 12/16/19 25 SDOH Screening 12/15/2025 12/15/2024 Tobacco Screening 12/17/2025 12/17/2024 Eye Exam 09/09/2026 09/09/2024, 12/2023, 09/09/2024, Additional [...] on patient's age to complete this topic Hepatitis A Vaccines Aged Out No long er eligible based on patient's age to complete [...] Procedure Name Priority Date/Time Associated Diagnosis Comments XR KUB AND UPRIGHT 2 VIEWS Routine 12/25/2024 2:03 PM EDT CBC WITH AUTO DIFFERENTIAL Routine 12/25/2024 2:01 PM EDT Chronic idiopathic constipation LIPASE Routine 12/25/2024 4:06 AM EDT FERRITIN Routine 12/25/2024 4:06 AM EDT COMPREHENSIVE METABOLIC PANEL Routine 12/25/2024 4:06 AM EDT Chronic idiopathic constipation PERIODIC ORAL EVALUATION - ESTABLISHED PATIENT Routine 12/17/2024 11:00 AM EDT ORAL HYGIENE INSTRUCTIONS Routine 12/17/2024 11:00 AM EDT Dental calculus Dental plaque PROPHYLAXIS - ADULT Routine 12/17/2024 1 1:00 AM EDT Dental calculus Dental plaque CASE PRESENTATION, DETAILED AND EXTENSIVE TREATMENT PLANNING Routine 12/17/2024 11:00 AM EDT INTRAORAL - PERIAPICAL EACH ADDITIONAL RADIOGRAPHIC IMAGE Routine 12/17/2024 11:00 AM EDT INTRAORAL - PERIAPICAL EACH ADDITIONAL RADIOGRAPHIC IMAGE Routine 12/17/2024 11:00 AM EDT INTRAORAL - PERIAPICAL FIRST RADIOGRAPHIC IMAGE Routine 12/17/2024 11:00 AM EDT POCT GLYCATED HEMOGLOBIN, TOTAL Routine 12/15/2024 1:56 PM EDT Type 2 diabetes mellitus without complication, without long-term current use of insulin (CMS/HCC) POCT GLUCOSE Routine 12/15/2024 1:55 PM EDT Type 2 diabetes mellitus without complication, without long-term current use of insulin (CMS/HCC) CT ABDOMEN PELVIS WO CONTRAST Routine 11/05/2024 3:18 PM EST BI MAMMOGRAM SCREENING TOMOSYNTHESIS BILATERAL Routine 09/12/2024 1:15 PM EST THINPREP IMAGING PAP AND HPV MRNA E6/E7 WITH REFLEX TO HPV 16,18/45 Routine 07/30/2024 2:16 PM EDT CREATININE, RANDOM URINE Routine 02/18/2024 1:28 PM EDT LIPID PANEL, STANDARD Routine 12/24/2023 12:56 PM EDT Essential hypertension HM COLONOSCOPY Routine 04/04/2023 from Last 3 Months or Most Recently Relevant to Health Maintenance Results * XR KUB and Upright 2 Views (12/25/2024 2:03 PM EDT) Anatomical Region Laterality Modality Radiographic Linette ging 12/25/2024 2:03 PM EDT Narrative 12/26/2024 8:49 AM EDT ? [facility] ?[address] ?[place] [address] ?XRay Report ? Signed ? Patient: Norma Arcos Ivette ?MR#: M ?? [id number] ? : 1960 ?Acct:[id number] ? Age/Sex: 64 / F ?ADM Date: 12/25/24 ? Loc: HO.XRAY ? Attending Dr: Sherri Britton MD ? Ordering Physician: Sherri Britton MD ?? Date of Service: 12/25/24 ?? Procedure(s): XR KUB ?? Accession Number(s): [id number] ? cc: Sofia Montalvo MD; Sherri Britton MD ? EXAMINATION: ??XR ABDOMEN 1 VIEW (KUB) ? HISTORY: R10.9 - Unspecified abdominal pain ? COMPARISON: Comparison is made with the prior examination dated ?? 12/22/2022. ? FINDINGS: ??Two supine views of the abdomen are submitted. ?? The bowel ?? gas pattern is unremarkable, without evidence of mechanical ?? obstruction. ?? No abnormal calcifications are identified. ?? There are ?? no abnormal soft tissue masses. ??There is degenerative disc disease of ?? the spine. A spinal stimulator is again seen in place. The device ?? overlies the right iliac wing, also without change. ? XR/XR KUB ?? IMPRESSION: ?? Unremarkable bowel gas pattern. ? Electronically signed by: ??Sunil Mohan MD ??12/26/2024 08:46 AM EDT ? Dictated By: ?Sunil Mohan MD ? Signed By: ?<Electronically signed by Sunil Mohan MD in OV> ?12/26/24 0846 ? DD/ 1403 ? TD/TT: 12/25/24 1418 ? Clinical Consultant: ? Procedure Note Reyna, Sofy - 12/26/2024 [place] [address] XRay Report Signed Patient: Norma ArcosMR#: M [id number] : 9Acct:[id number] Age/Sex: 64 / FADM Date: 12/25/24 Loc: [facility] Attending Dr: Sherri Britton MD Ordering Physician: Sherri Britton MD Date of Service: 12/25/24 Procedure(s): XR KUB Accession Number(s): [id number] cc: Sofia Montalvo MD; Sherri Britton MD EXAMINATION: XR ABDOMEN 1 VIEW (KUB) HISTORY: R10.9 - Unspecified abdominal pain COMPARISON: Comparison is made with the prior examination dated 12/22/2022. FINDINGS: Two supine views of the abdomen are submitted. The bowel gas pattern is unremarkable, without evidence of mechanical obstruction. No abnormal calcifications are identified. There are no abnormal soft tissue masses. There is degenerative disc disease of the spine. A spinal stimulator is again seen in place. The device overlies the right iliac wing, also without change. XR/XR KUB IMPRESSION: Unremarkable bowel gas pattern. Electronically signed by: Sunil Mohan MD 12/26/2024 08:46 AM EDT RP Dictated By: Sunil Mohan MD Signed By: <Electronically signed by Sunil Mohan MD in OV> 12/26/24 0846 DD/ 1403 TD/TT: 12/25/24 1418 Clinical Consultant: [facility] External Provider IMG XR PROCEDURES Final Result * (ABNORMAL) CBC auto differential (12/25/2024 2:01 PM EDT) White Blood Count 7.9 4.8 - 10.8 X10*3/uL [facility] Red Blood Count 3.85(L) 4.20 - 5.50 X10*6/uL [facility] Hemoglobin 11.8(L) 12.0 - 16.0 g/dl [facility] Hematocrit 35.9(L) 37.0 - 47.0 % [facility] Mean Corpuscular Volume 93.2 80.0 - 98.0 fL [facility] Mean Corpuscular Hemoglobin 30.6 27.0 - 33.0 pg [facility] Mean Corpuscular HGB Conc 32.9 31.0 - 35.0 g/dl [facility] Red Cell Distribution Width 12.9 11.0 - 16.0 % [facility] Platelet Count 283 160 - 400 X10*3/uL [facility] Mean Platelet Volume 11.3 9.4 - 12.3 fL [facility] Neutrophils Percent Auto 62.7 45 - 73 % [facility] Imm Gran Pct Auto 0.4 0.0 - 0.4 % [facility] Lymphocytes Percent Auto 26.4 20 - 40 % [facility] Monocytes Percent Auto 7.1 2 - 11 % [facility] Eosinophils Percent Auto 2.8 0 - 4 % [facility] Basophils Percent Auto 0.6 0 - 2 % [facility] NRBC Pct Auto 0.0 0.0 - 0.2 /100WBC [facility] Neutrophils Absolute Auto 4.9 2.0 - 8.3 x10*3/uL [facility] Imm Gran Abs Auto 0.03 0.00 - 0.03 X10*3/uL [facility] Lymphocytes Absolute Auto 2.1 1.2 - 4.9 X10*3/uL [facility] Monocytes Absolute Auto 0.6 0.1 - 1.2 X10*3/uL [facility] Eosinophils Absolute Auto 0.2 0.0 - 0.4 X10*3/uL [facility] Basophils Absolute Auto 0.1 0.0 - 0.2 X10*3/uL [facility] NRBC Abs Auto 0.000 0.0 - 0.012 X10*3/uL [facility] Blood Venous blood specimen / Unknown 12/25/2024 2:01 PM EDT 12/25/2024 2:01 PM EDT [facility] INSPECTOR [employer] LAB BLOOD ORDERABLES Final Re sult Performing Organization Address City/[facility]/ZIP Co de Phone Number [facility] [address] [place] [phone] * Lipase (12/25/2024 4:06 AM EDT) Lipase 20 8 - 78 U/L [facility] 12/25/2024 4:06 AM EDT 12/25/2024 2:01 PM EDT Generic External Data Provider LAB BLOOD ORDERAB LES Final Result Performing Organization Address City/[facility]/ZIP Co de Phone Number [facility] [address] [place] [phone] * Ferritin (12/25/2024 4:06 AM EDT) Ferritin 51 10 - 250 ng/mL [facility] 12/25/2024 4:06 AM EDT 12/25/2024 2:01 PM EDT Generic External Data Provider LAB BLOOD ORDERAB LES Final Result Performing Organization Address City/[facility]/ZIP Co de Phone Number [facility] [address] [place] [address] [phone] * (ABNORMAL) Comprehensive Metabolic Panel (12/25/2024 4:06 AM EDT) Sodium 137 135 - 145 mmol/L [facility] Potassium 4.8 3.3 - 5.1 mmol/L [facility] Chloride 98 96 - 108 mmol/L [facility] Carbon Dioxide 34(H) 22 - 29 mmol/L [facility] Anion Gap 10(L) 12 - 20 [facility] Urea Nitrogen (BUN) 15 9 - 16 mg/dL [facility] Creatinine, Serum 0.95 0.5 - 1.4 mg/dL [facility] Estimated Glomerular Filt Rate 59 [facility] Comment:Chronic Kidney Disea se: Estimated GFR < 60 mL/min/1.74m6Iwuzwi Kidney Disease: Estimated GFR < 15 mL/min/1.73m2 Glucose 90 60 - 115 mg/dL [facility] Calcium 10.1 8.4 - 10.2 mg/dL [facility] Bilirubin, Total 0.3 0.0 - 1.0 mg/dL [facility] Aspartate Amino Transferase 21 5 - 31 U/L [facility] Alanine Aminotransferase 14 0 - 31 U/L [facility] Total Protein 7.1 6.5 - 8.0 g/dL [facility] Albumin Level 3.9 3.5 - 5.0 g/dL [facility] Alkaline Phosphatase 57 39 - 117 U/L [facility] Blood Venous blood specimen / Unknown 12/25/2024 4:06 AM EDT 12/25/2024 2:01 PM EDT [facility] LAB BLOOD ORDERABLES Final Re sult Performing Organization Address City/[facility]/ZIP Co de Phone Number [facility] [address] [place] [phone] [phone] * (ABNORMAL) POCT HGB A1C (12/15/2024 1:56 PM EDT) Hemoglobin A1C 6.2(A) 4.0 - 6.0 % QC Media Lot # [id number] Lot# Expiration Date ,026 Blood 12/15/2024 1:56 PM EDT Sofia Art MD POINT OF CARE TEST EN TER/EDIT ORDERABLES Final Result * POCT Glucose (12/15/2024 1:55 PM EDT) Pathologist [facility] Glucose Blood, POC 151 60 - 200 mg/dL QC Media Lot # [id number] Lot# Expiration Date ,025 Blood Capillary blood specimen / Unknown 12/15/2024 1:55 PM EDT Sofia Art MD POINT OF CARE TEST EN TER/EDIT ORDERABLES Final Result * CT Abdomen Pelvis w/o Contrast (11/05/2024 3:18 PM EST) Anatomical Region Laterality Modality Body, Pelvis, Abdomen Computed T omography 11/05/2024 3:18 PM EST Narrative 11/05/2024 4:02 PM EST ? [facility] ?[address] ?[place] [address] ? CT Scan Report ? Signed ? Patient: Norma Arcos Ivette ?MR#: M ?? [id number] ? : 1960 ?Acct:[id number] ? Age/Sex: 64 / F ?ADM Date: /29/25 ? Loc: HO.CT ? Attending Dr: Luis Enrique Rees MD ? Ordering Physician: Luis Enrique Rees MD ?? Date of Service: 11/05/24 ?? Procedure(s): CT abdomen pelvis wo IV con ?? Accession Number(s): [id number] ? cc: Sofia Montalvo MD; Luis Enrique Rees MD ? Report Number: ?? [id number]: Total DLP = ??584.00 mGy-cm ?? EXAMINATION: [...] 03:59 PM EST RP ? Dictated By: ?Gen Gamino MD ? Signed By: ?<Electronically signed by Gen Gamino MD in OV> ?11/05/24 1559 ? DD/ 1518 ? TD/TT: 11/05/24 1530 ? Clinical Consultant: MSM ? Procedure Note Reyna, Sofy - 11/05/[address] [place] [address] [address] Scan Report Signed Patient: Norma Arcos Iveunice#: M [id number] : 9Acct:[id number] Age/Sex: 64 / FADM Date: 11/05/24 Loc: HO.CT Attending Dr: Luis Enrique Rees MD Ordering Physician: Luis Enrique Rees MD Date of Service: 11/05/24 Procedure(s): CT abdomen pelvis wo IV con Accession Number(s): [id number] cc: Sofia Montlavo MD; Luis Enrique Rees MD Report Number: [id number]: Total DLP = 584.00 mGy-cm EXAMINATION: CT [...] 11/05/24 1559 DD/ 1518 TD/TT: 11/05/24 1530 Clinical Consultant: DORIS [facility] External Provider IMG CT PROCEDURES Edited Result - Final * BI Mammogram Screening Tomosynthesis Bilateral (09/12/2024 1:15 PM EST) Anatomical Region Laterality Modality Breast Bilateral Mammography 09/12/2024 1:15 PM EST Narrative 09/18/2024 1:29 PM EST ? [facility] ? [address] ?[place] [address] ? Mammography Report ? Signed ? Patient: Norma Arcos ?MR#: M ?? [id number] ? : 1960 ?Acct:[id number] ? Age/Sex: 64 / F ?ADM Date: 09/12/ ? Loc: HO.MAMMO ? Attending Dr: Aryan Estrella MD ? Ordering Physician: Aryan Estrella MD ?Results: 1Negativ ?? e ? Date of Service: 09/12/24 ?Follow Up: 1 Year From Orig ?? inal Mammogram ? Procedure(s): MM tomosynthesis screening BI ?? Accession Number(s): [id number] ? cc: Sofia Montalvo MD; Aryan Estrella [...] ??Chelsi Beverly DO ??09/18/2024 01:25 PM EST ? Dictated By: ?Chelsi Beverly DO ? Signed By: ?<Electronically signed by Chelsi Beverly DO in OV> ? 09/18/24 1325 ? DD/ 1315 ? TD/TT: 09/12/24 1338 ? Clinical Consultant: ? Procedure Note Sofy Orellana - 09/19/2024 [facility] [address] [place] [address] Dr. Flores, [place]NE [address] Mammography Report Signed Patient: Norma Arcos IvetteMR#: M [id number] : 9Acct:[id number] Age/Sex: 64 / FADM Date: 09/12/24 Loc: HO.MAMMO Attending Dr: Aryan Estrella MD Ordering Physician: Aryan Estrella MDResults: 1Negativ e Date of Service: 09/12/24Follow Up: 1 Year From Orig inal Mammogram Procedure(s): MM tomosynthesis screening BI Accession Number(s): [id number] cc: Sofia Montalvo MD; Aryan Estrella MD [...] Chelsi Beverly DO 09/18/2024 01:25 PM EST Dictated By: Chelsi Beverly DO Signed By: <Electronically signed by Chelsi Beverly DO in OV> 09/18/24 1325 DD/ 1315 TD/TT: 09/12/24 1338 Clinical Consultant: us [facility] External Provider IMG BI PROCEDURES Edited Result - Final * ThinPrep Imaging Pap and HPV mRNA E6/E7 with Reflex to HPV 16,18/45 (07/30/2024 2:16 PM EDT) HPV 16 RNA TNP [facility] HPV 18/45 RNA [facility] HPV nRNA E6/E7 Not Detected Not Detected [facility] Comment:Methodology: Transcr iption-Mediated AmplificationThis assay detects E6/E7 viral messenger RNA (mRNA) from 14high-risk HPV types (16,18,31,33,35,39,45,51,52,56,58,59,66,68).Cervical sources are required for HPV testing.If a vaginal source from a patient who has had atotal hysterectomy with removal of cervix wassubmitted, please contact the testing laboratoryfor alternative testing options.For additional information, please refer tohttp://education.vip.com/faq/KUB848b9(This link if provided for information/educational purposes only.)THIS TEST WAS PERFORMED AT:[employer] [address] [id number] ALBERT MD SOURCE: SEE NOTE [facility] Comment:Cervix Report Status: [facility] Clinical Information: SEE NOTE [facility] Comment:Postmenopausal LMP: SEE NOTE [facility] Comment:PM Prev. PAP: SEE NOTE [facility] Comment:2022 Prev. BX: SEE NOTE [facility] Comment:NONE GIVEN Statement Of Adequacy: SEE NOTE [facility] Comment:Satisfactory for hailey luation.Endocervical/transformation zone componentpresent. General Categorization: [facility] Interpretation/Result: SEE NOTE [facility] Comment:Cytology Results: Ne gative for intraepitheliallesion or malignancy. Cytology Comment SEE NOTE [facility] Comment:This Pap test has be en evaluated with computerassisted technology. 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 It isnot a diagnostic test and is subject to false negativeand false positive results. It is most reliable when asatisfactory sample, regularly obtained, is submittedwith relevant clinical findings and history, and whenthe Pap result is evaluated along with historic andcurrent clinical information. 07/30/2024 2:16 PM EDT 07/30/2024 3:50 PM EDT Narrative [facility] - 08/04/2024 3:28 PM EDT [...] Provider LAB PATHOLOGY ORD ERABLES Final Result Performing Organization Address [facility] Co de Phone Number [facility] [address] [place] [phone] * Creatinine, Random Urine (02/18/2024 1:28 PM EDT) Creatinine, Urine 35.20 mg/dL [facility] 02/18/2024 1:28 PM EDT 02/18/2024 1:35 PM EDT Generic External Data Provider LAB URINE ORDERAB LES Final Result Performing Organization Address [facility] Co de Phone Number [facility] [address] [place] [phone] * (ABNORMAL) Lipid Panel, Standard (12/24/2023 12:56 PM EDT) Triglycerides 344(H) <150 mg/dL [facility] Comment:Desirable Triglyceri de: less than 150 mg/dLBorderline High Triglyceride 150-199 mg/dLHigh Triglyceride: 200-499 mg/dLVery High Triglyceride: greater than or equal to 5OO mg/dL Cholesterol 186 <200 mg/dL [facility] Comment:Desirable Cholestero l: less than 200 mg/dLBorderline High Cholesterol: 200-239 mg/dLHigh Cholesterol: greater than 239 mg/dL LDL Cholesterol Calculated 52 <100 mg/dL [facility] Comment:Desirable LDL: less than 100 mg/dLNear Optimal/Above Optimal LDL: 110- 129 mg/dLBorderline High LDL: 130-159 mg/dLHigh LDL: 160-189 mg/dLVery High LDL: greater than or equal to 190 mg/dL HDL Cholesterol 66 >40 mg/dL [facility] Comment:Desirable HDL: great er than 40 mg/dL Note: This HDL assay may give artificially low results in patients with liver disease. Blood Venous blood specimen / Unknown 12/24/2023 12:56 PM EDT 12/24/2023 1:06 PM EDT us Sofia Art MD LAB BLOOD ORDERABLES Final Result Performing Organization Address City/State/[facility] Co de Phone Number [facility] [address] [place] [phone] * Colonoscopy (04/04/2023) Colonoscopy Normal Normal us Sherri Britton MD HEALTH MAINTENANCE Final Result from Last 3 Months or Most Recently Relevant to Health Maintenance Insurance [place] [phone] [facility] STANDARD MEDICARE [place] STAND ADULT Care Teams Clerk Funeral Detail Relationship Specialty Start Date End Date Sofia Montalvo MD [address] [place] [phone] PCP - General Family Medicine 09/23/21
[2025-01-19] MEDS: iohexoL 350 MG/ML 100 ML INFUS..BTL IV (15:33)
[2025-01-19] MEDS: Sorbitol/Mannit/Xanth Imaging 500 ML LIQUID 1500 ML PO (15:34)
== END 2025-01-19 13:06 | disposition home or self-care (01) ==
LOC: HO.CT 13:05
PROVIDERS: PCP Internal Medicine; Visit Provider Internal Medicine Gastroenterology
DX: R19.5 Other fecal abnormalities (principal)
CPT/HCPCS: 74177; Q9967

== ENCOUNTER → 2025-01-19 13:07 | Outpatient (BNV) | payer MEDICARE, MEDICAID, SELFPAY | PROVIDERS: PCP Internal Medicine; Visit Provider Radiology Diagnostic Radiology | DX: K59.04 Chronic idiopathic constipation (principal) | CPT/HCPCS: 74177 ==

== ENCOUNTER 2025-01-30 12:44 | Outpatient (AMB) | payer MEDICARE, MEDICAID, SELFPAY ==
--- NOTE | 2025-01-30 12:51 | A.OFFVIS_ITS ---
Vital Signs 01/30/25 12:52 Height 5 ft 2 in Weight 175 lb BMI 32.0 BP 131/60 Blood Pressure Location Lt brachial Position Sitting Pulse 80 Pulse Oximetry (%) 95 Oxygen Delivery Method Room Air Intake Visit Reasons: abdominal pain/results Intake Note: Patient 3 weeks follow up for abdominal bloating, lab and KUB/CT abd results. Patient cc: center abdominal pain with bloating, chronic constipation with black stool, bleeding hemorrhoids and acid reflux Custom Designer Required: Yes Custom Designer Name: Carlos [id number] Accompanied by: Self / Same As Patient Allergies Seasonal Allergies Allergy (Mild, Verified 02/05/25 13:28) Unknown Medication List - Last Reconciled 01/30/25 by Sherri Britton MD acetaminophen ER 650 mg PO DAILY albuterol sulfate 90 mcg/actuation (Ventolin HFA) 2 puffs PO Q4H PRN arformoterol (Brovana) 2 mL inhalation BID 30 days ascorbic acid (vitamin C) 250 mg PO DAILY atenolol 50 mg PO DAILY budesonide 0.5 mg (2 mL) inhalation BID 30 days calcium polycarbophil (Fiber-Lax) mg PO cetirizine 10 mg PO DAILY chlorthalidone 50 mg PO DAILY cholecalciferol (vitamin D3) 50 mcg PO DAILY clonazepam 0.5 mg PO DAILY doxepin 50 mg PO BEDTIME escitalopram oxalate 10 mg PO DAILY ferrous gluconate 240 mg PO Q OTHER DAY fluticasone propionate 50 mcg/actuation 1 spray intranasal BID hydrocortisone 2.5% 1 appl VA BID-QID PRN 30 days ipratropium-albuterol 0.5 mg-3 mg(2.5 mg base)/3 mL 3 mL inhalation Q4-6H PRN 30 days losartan 100 mg PO DAILY lubiprostone (Amitiza) 16 mcg (2 x 8 mcg) PO BID 30 days metformin 500 mg PO BID mupirocin 2% 1 appl topical TID naloxone 4 mg/actuation 4 mg intranasal Q2M PRN 1 day pantoprazole 40 mg PO BID polyethylene glycol 3350 (Miralax) 17 grams PO DAILY 1 day pregabalin 150 mg PO BID 30 days simvastatin 40 mg PO BEDTIME zolpidem 10 mg PO BEDTIME PRN HPI HPI abdominal pain/results: Details: GI CLINIC VISIT FOR THIS 64-YEAR-OLD [place]URKM[place]-SPEAKING FEMALE FOR FU OF ABD PAIN: ? 1. Epigastric pain - R10.13 (Primary) ? 2. Gastroesophageal reflux disease without esophagitis - K21.9 ? 3. Abdominal bloating - R14.0 ? 4. Colon cancer screening - Z12.11 Last GI clinic visit was on 09/27/2023 ? ??TODAY'S VISIT ?Video Windows System Admin, Sofia # [id number]. CC: Patient 3 weeks follow up for abdominal bloating, lab and KUB/CT abd results. Patient cc: center abdominal pain with bloating, chronic constipation with black stool, bleeding hemorrhoids and acid reflux CTE results were reviewed with the pt. Denies use of aspirin or NSAIDS. Complains of early satiety - feels like she ate a whole cow after eating a small amount of food (Of note GES was normal) Does not eat till late afternoon. Feels bloated after she starts eating and stomach feels really hard. Continues to have constipation - last BM was on 01/27 (went 3 times) BM can be painful - she pushes without any results. Last Sunday (January 26) she woke up with pain and gurgling sound at 1 am. Had very dark stool which were very loose and watery. Fell on the ground and was able to get up after a while. PAST VISIT: Complains of abdominal pain x 3 months. Complains of diarrhea alternating with constipation. Prescribed a fibre supplement which is not helping Tried Mylanta which helped a little bit. Complains of 10/10 cramping upper abdominal pain and radiates laterally to the back Pain is constant and gets worse with eating. Complains of early satiety and trouble breathing after she eats. Some days she has diarrhea (3 times a week) and some days she is constipated. Stool can be intermittently dark/black Denies blood in the stools or wt loss Pt uses an implanted pump for back pain - connects to the pump every 3 hours (Hydromorphone 0.75 mg/ml and Bupivacaine 7 mg/ml dose of her PTM medication from 167 micro g of hydromorphone at a time with corresponding dose of bupivacaine to 189.9 micro g per application with corresponding dose of bupivacaine which she can use every 3 hours 5 times a day. After that constipation episode she started having diarrhea she states for a week. The pain never goes away Taking Omeprazole twice a day Loss of appetite and barely eat. Eats a little bit and feels very full Has diarrhea which does not stop and is dark in color. Can have 5 Bms a day Went 3 times last night Had an episode of fecal incontinence. Stools are slimy and she felt scared. EGD and Colon results reviewed Continues to have constipation Feels a ball comes out and her hemorrhoids came out. Today she reports she has to strain when she is having a BM and she feels like a ball coming out of her rectum. Seen by PCP and prescribed a suppositories Can have intermittent diarrhea sometimes with urgency and bowel accidents Complains of intermittent regurgitation and heartburn Has been having a lot of diarrhea x 6 weeks and has to use pampers. Notes lower abdominal cramps followed by diarrhea BMs can be watery and sometimes very dark - can have upto 3 BMs a day. Has stopped taking laxatives and medications for constipation Travelled to [place] for 3 weeks. - had diarrhea before she went to [place]. Fell x 2 while in [place] Pt denies fever or chills and complains of sweating. Appetite has been poor. Denies recent antibiotic use Continues to have acid reflux. Notes lower extremity edema for the past 2 weeks Has been having diffuse abdominal pain x 2 weeks. Feels bloated and distended. Pain is 9/10 and is burning. Unable to eat - able to eat small amounts of food Has 2 BMs a day and sometimes urgency. Notes some decrease in pain after she has a BM. Notes sour bile which comes up. Sometimes she has a lot of pain and is unable to have a BM. Has never used an enema. Denies fever chills or sweating Has been chewing some white pills which did not help Also notes diarrhea - Has been having a lot of lower abdominal pain and pain in her lower back. Passed a soft stool - it was painful [place] bloated and gassy and denies nausea or vomiting. Drinks coffee in the morning and has a BM daily. Took a chewable pill and it helped with pain. Continues to have abdominal pain and constipation. Has a lot of pain when she goes to the bathroom. Stomach gets big and swollen Unable to eat since it hurts too much. Takes 2 chewable tablets when she had the pain. Unable to eat until the following day. Has pain 2 times a week and lasts 45 min to an hour. I have been having abdominal pain. Feels completely full after eating a few bites and unable to eat more Feels bloated. Taking a medication twice a day for pain which helps after a while. Gets a lot of constipation and has to push and has hard stools. Has a BM every 2 weeks. I had a lot of abd pain and I have been constipated. Had to sit on the toilet for an hour last night and was unable to have a BM. Took simethicone and had diarrhea. Abd pain improved after she had a BM Has chronic anemia and denies having periods for the past 10 yrs. Pt states When I eat I get pain in my stomach, I feel like my intestines are twisting inside. It feels like my stomach is very full when I eat. The other day I did have an accident, I couldn't make it in time. Usually I don't have diarrhea that was just one time. But mostly I just get the constipation and the pain in my stomach, my belly gets really big. It feels like my stomach is swelling. I have to constantly take the tums but I think I need a stronger medication for that. She is recuperating from her knee replacement surgery. It hurts a lot.? Has to eat very little when she eats. Denies nausea or vomiting. Stomach is bloated, painful and I have a hard time going to the bathroom. Feels like intestines are twisted up. ? GES results were reviewed with the patient. ? If I dont keep taking my medications I will be in pain ? Does fine if she takes her medications. Can have intermittent bloating. ? Denies constipation and has a BM every other day. ? Feeling good - just some pain due to arthritis. ? Sometimes I get some pain in the stomach and unable to eat. ? If I dont take the medication, I get a lot of pain. ? She feels she gets full very fast. ? Has nausea and denies vomiting. ? Sometimes no BM x 3 days - not taking any medication for constipation. ? Has acid reflux at night and takes TUMS with some relief. ? Notes post prandial abdominal pain. ? Has a BM 3-4 times a day and no BM on some days. ? Not taking the Senna since she does not feel constipation. ? Denies any change in her abd pain with BM and passage of gas. ? Not taking any medication for constipation at present. ? Denies past problems with anesthesia ? IMAGING STUDIES: Oct, [address] SCAN SHOWED: 1. No acute intra-abdominal process seen. 2. Moderate constipation. No obstruction seen. 3. There is a band of soft tissue thickening posterior to the cecum. Itis stable to 2019 exam The appendix is not seen. Question appendix. Correlate with clinical exam. 08/06/20 GASTRIC EMPTYING STUDY SHOWED:? ? ? Retention in the stomach at each time interval was: ? ? ? 1 hour 63% (normal 37%-90%) ? ? ? 2 hours 8% (normal 30%-60%) ? ? ? 3 hours 4% ? ? ? 4 hours (Not Obtained) (normal 0%-10%) IMPRESSION: Normal solid food gastric emptying study. ?08/04/[address] scan showed: ? GASTROINTESTINAL TRACT: There is a duodenal diverticulum adjacent to the pancreas that measures 2 x 2.7 cm. ? Small and large bowel is otherwise unremarkable. ? The stomach is unremarkable. The appendix is not identified. The small and large bowel are unremarkable. ? The appendix is unremarkable. ? ABDOMINAL WALL: No significant hernia is appreciated. ? LYMPH NODES: There are small, small bowel mesentery lymph nodes. No enlarged lymph nodes are seen. ? OSSEOUS STRUCTURES: There are degenerative changes of the spine. ? IMPRESSION: Duodenal diverticulum, otherwise unremarkable exam. ?ENDOSCOPIC PROCEDURES: 10/21/19 COLONOSCOPY SHOWED: ? Ascending Colon A 1.5 to 2 cms flat polyp in the distal AC raised with 2 cc ? of Orise solution and removed with a hot snare ? Transverse Colon - Normal ? Descending Colon Moderate diverticulosis ? Sigmoid Colon Moderate diverticulosis ? Ano-rectum - Moderate internal hemorrhoids ? Colon preparation: Fair despite copious irrigation ? Impression and Post Procedure Diagnosis: ? Colonoscopy Findings: ? One 1.5 to 2 cms hyperplastic polyp removed ? Moderate diverticulosis seen in the left colon ? Moderate hemorrhoids on retroflexed exam. ? Plan: ? Repeat Colonoscopy interval based on path results in 1-2 years due to fair prep. ? Above findings were reviewed with the patient and colon polyps and ? diverticulosis handouts were given in the discharge area ? LETTER SENT ADVISING REPEAT COLONOSCOPY IN 5 YRS - will ask patient to have a stool FIT test checked in the interim due to fair prep. 09/2019 EGD SHOWED: Mild gastritis and gastric biopsies showed mild chronic inactive gastritis and features of reactive gastropathy. No H pylori was detected.Duodenal biopsies were normal [facility] Medical History (Updated 02/20/25 @ 16:51 by Sherri Britton MD) Osteopenia Asthma-COPD overlap syndrome Lumbar back pain with radiculopathy affecting right lower extremity Sacroiliac joint dysfunction of right side Sacroiliitis Disc degeneration, lumbar HPV test positive Chronic pain syndrome Acute blood loss anemia Hypertension Osteoarthritis of right knee [place] (dyspnea on exertion) Presence of dental bridge Sleep apnea Diabetes Overflow stress urinary incontinence in female Urge incontinence Primary osteoarthritis of hands, bilateral Loose right total knee arthroplasty Hx of carpal tunnel syndrome Pulmonary nodules GERD (gastroesophageal reflux disease) Surgical History Hx of tubal ligation H/O knee surgery History of orthopedic surgery History of arthroplasty of right knee History of pubovaginal sling Hx of colonoscopy History of carpal tunnel release of both wrists History of esophagogastroduodenoscopy (EGD) Previous back surgery History of endometrial ablation Hx of section Family History Mother Diabetes Arthritis Brother Cancer Paternal Aunt Breast cancer Social History Household Members: None Housing: Apartment Are you a primary patient care technician instructor to a significant other at home: No Do you presently have visiting nurse or other home services: Yes (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) Alcohol intake: former Year quit: 2017 Comment: pt sleeping Patient Tobacco Use Status: Current everyday Tobacco user Tobacco use type: Cigarette Cigarettes Per Day: 5 Years Smoked: 2014 Second Hand Smoke Exposure: No Substance Use Type: Crack/Cocaine and Marijuana service: No Current occupational status: disabled Current occupation: rt handed Female Reproductive History Menstrual Age of Menarche: 11 Review of Systems Const All systems reviewed & are unremarkable except as noted in HPI and below Physical Exam Vital Signs: Last Vital Signs Pulse 80 01/30/25 12:52 BP 131/60 01/30/25 12:52 Pulse Ox 95 01/30/25 12:52 Oxygen Delivery Method Room Air 01/30/25 12:52 BMI result Body Mass Index 32.0 Const General: healthy appearing and no acute distress Nutritional Appearance: obese Orientation/consciousness: patient oriented x3 Limitations: language barrier HEENT Head: Yes normal to inspection Ears: hearing grossly normal bilaterally Eyes Sclerae: sclerae normal Pupils: Equal, round and reactive pupils present Neck Neck: Yes normal visual inspection Chest Chest palpation & inspection: normal inspection of the chest Resp Effort & Inspection: normal respiratory effort Auscultation: clear to auscultation bilaterally Cardio Palpation: normal PMI Rate: regular rate Rhythm: regular rhythm Heart sounds: S1 normal heart sound present, S2 normal heart sound present and no murmurs GI Palpation (GI): Soft to palpation, nontender and No hepatosplenomegaly present Auscultation: normal bowel sounds Rectal Exam - Female: deferred Skin General skin exam: no rashes or lesions noted Neuro General: patient oriented x3, gait normal and moves all extremities Cranial nerves: Yes Equal, round and reactive pupils present Psych Appearance: grossly normal Mental Status: mental status grossly normal Assessment & Plan Assessment & Plan (1) GERD (gastroesophageal reflux disease): Code(s): K21.9 - Gastro-esophageal reflux disease without esophagitis Category: Medical (2) Duodenal diverticulum: Code(s): K57.10 - Diverticulosis of small intestine without perforation or abscess without bleeding Category: Medical (3) Abdominal bloating: Code(s): R14.0 - Abdominal distension (gaseous) Category: Medical (4) Colon cancer screening: Comment: 10/11/19 Colonoscopy showed One 1.5 to 2 cms hyperplastic polyp removed, Moderate diverticulosis seen in the left colon and moderate hemorrhoids on retroflexed exam. advised repeat colon in 5 yrs - 02/2020 A stool FIT test was checked due to fair prep and was negative. 03/2023 colonoscopy showed diverticulosis and hemorrhoids and no polyps were detected. Random biopsies obtained from the colon were normal. FU colon was advised in 10 years. Code(s): Z12.11 - Encounter for screening for malignant neoplasm of colon Category: Medical (5) Early satiety: Code(s): R68.81 - Early satiety Category: Medical (6) Chronic constipation: Code(s): K59.09 - Other constipation Category: Medical (7) Chronic diarrhea: Code(s): K52.9 - Noninfective gastroenteritis and colitis, unspecified Category: Medical (8) Abdominal pain: Code(s): R10.9 - Unspecified abdominal pain Category: Medical (9) Elevated fecal calprotectin: Code(s): R19.5 - Other fecal abnormalities Category: Medical Plan 64-year-old [place]-speaking female with hypertension, depression, chronic obstructive pulmonary disease (COPD), erosive osteoarthritis of hands, mild lumbar spondylosis, b/l carpal tunnel syndrome, Bilateral knee OA, Asthma, Constipation, Dyspepsia, microscopic hematuria followed in GI for GERD, abdominal pain with bloating and colon cancer screening - Abdominal pain and bloating is likely related to chronic constipation or related to duodenal diverticulum. No pancreatic or biliary source found on recent CT scan. Patient complains of early satiety and a gastric emptying study was normal. Patient was prescribed Linzess for constipation during her last visit and denies getting this medication from the pharmacy. Linzess was prescribed again and I requested Phoebe, GI RN, to check with the pharmacy to confirm it is available for the patient Pt denies improvement in constipation with Linzess - pt was switched to Lubiprostone 16 mcg twice daily for constipation. Oct [address] scan was performed and results as noted above. 03/30/23 EGD (evaluation of abd pain and FU of duodenal diverticulum) and Colon (abd pain, diarrhea, anemia and fair prep on past colon) performed results as noted above 06/15/23 patient was prescribed MiraLax, senna and Amitiza for constipation 09/27/23 Pt advised to have stools studies for further evaluation of diarrhea 12/25/24 Pt complains of abdominal pain, bloating and constipation with intermittent diarrhea Pt advised to have labs and KUB today She will be scheduled for a CT enterography (elevated fecal calprotectin level in the past) 01/19/25 CT enterography showed: Mild mural thickening of second and third duodenum and proximal jejunal. Likely inflammatory or infectious etiology. Rest of the small bowel loops is unremarkable. Mild constipation. Appendix is not seen. 01/30/25 CTE results were reviewed with the pt. Denies use of aspirin or NSAIDS. Complains of early satiety - feels like she ate a whole cow after eating a small amount of food (Of note GES was normal) Does not eat till late afternoon. Feels bloated after she starts eating and stomach feels really hard. Continues to have constipation - last BM was on 01/27 (went 3 times) BM can be painful - she pushes without any results. Pt advised to schedule an EGD with small bowel enteroscopy (FU of abnormal duodenum and proximal jejunum on CTE) Of note pt had a colonoscopy in 03/2023 which showed diverticulosis and hemorrhoids and no polyps were detected. Random biopsies obtained from the colon were normal. FU colon was advised in 10 years. Check stool occult blood and IBD serologies. [place] of dicyclomine for abdominal pain. FU in 4 weeks - scheduled 05/28/25 Orders: Orders Complete Blood Count Auto Diff 01/30/25 R19.5 - Other fecal abnormalities AMB Stool Occult Bld Single 01/30/25 R10.9 - Unspecified abdominal pain [facility] 01/30/25 R19.5 - Other fecal abnormalities Medications: New dicyclomine 10 mg PO TID 90 caps 3RF 30 days R10.9 - Unspecified abdominal pain Coding Level of Care Code Est Pt Level 4 (74726) Diagnoses GERD (gastroesophageal reflux disease) K21.9 Duodenal diverticulum K57.10 Abdominal bloating R14.0 Colon cancer screening Z12.11 Early satiety R68.81 Chronic constipation K59.09 Chronic diarrhea K52.9 Abdominal pain R10.9 Elevated fecal calprotectin R19.5 Time Spent (min) 21
[2025-01-30 12:52] VITALS: BP 131/60; PULSE 80; O2SAT 95; BMI 32.0
--- OUTSIDE RECORDS SUMMARY | 2025-01-30 13:25 | XMS_ITS | Data Portability ---
Author Organization [facility], Id in - [facility] Address [address] [place] [address] Care Team Providers Care Fondant Machine Operator Name Role Phone [facility] Referring Provider [facility] [place] Referring Provider Assessment No assessment recorded. Plan [...] Name and Address Organization Details Recorded Time 6890 ibuprofen medicatio n Not available Not available Not available 08/05/2024 5640 RxNorm Not Available [facility] - production 4 03:39:17 Medications Name Sig [...] 3 98 % 98 % 16 /min 77974.7 2 g 60 /min 151 mm[Hg] 66 mm[Hg] Not Available [facility] - production 3 20:01:13 Date Recorded Oxygen saturation Oxygen saturation in Arterial blood by Pulse oximetry Heart rate Respiratory rate Body temperature Systolic blood pressure Diastolic blood pressure Provider Name and Address Organization Details Last Updated DateTime 4 97 % 97 % 62 /min 16 /min 98.1 [degF] 112 mm[Hg] 70 mm[Hg] Not Available [facility] 4 11:57:57 Social History None recorded. Functional Status None recorded. Mental Status None recorded. Family History Nothing Reported. Medical History No medical history recorded. Gynecological HistoryNo gynecological history recorded. Obstetrics History GPAL:G 0 P 0 0 0 0 Past Encounters Encounter ID Performer Location Encounter Start Date Encounter Closed Date Diagnosis/Indication Diagnosis SNOMED-CT Code Diagnosis ICD10 Code Diagnosis Note [id number] Sandy Fernández MD [facility] [address] [place] [id number] 03/29/2023 20:01:01 03/30/2023 11:29:07 Edema of lower extremity [id number] R60.0 Evaluation in the field was performed by my ocean clam boat captain colleague, as noted above, I provided real-time [...] shortness of breath, cough, chest pain, fever. [id number] [facility] - [address] [phone] 11/12/2023 11:57:55 11/13/2023 10:18:19 Diarrhea [id number] R19.7 I provided real -time medical direction via phone for this encounter, and was available for additional phone based assistance as needed. I have reviewed and agree with the Assessment and Plan as documented by the Medical Numerical Control Operator. Patient given the opportunit y to ask [...] Manley Member ID Guarantor Name 03/29/2023 1 [facility] - DOS ON OR AFTER 2023 - DUAL ELIGIBLE - HALFWAY OPTIONS AND ONE CARE (MEDICARE REPLACEMENT/ADV ANTAGE - HMO) Norma Fried [id number] Norma Fried 11/12/2023 1 [facility] - DOS ON OR AFTER 2023 - DUAL ELIGIBLE - HALFWAY OPTIONS AND ONE CARE (MEDICARE REPLACEMENT/ADV ANTAGE - HMO) Norma Cadenaiago [id number] Norma Cadenaiago Notes Date Note Type Note [...] .................. .................. .................. .................. .................. .................. ............... Medical Numerical Control Operator Note From Fermin Dennis: pt requesting visit [...] no change in heart rate or 02. [facility] contacted and recommends pt go to the [...] warranting a 911 call/trip to the hospital. Medical Numerical Control Operator Allergies: Ibuprofen .................. .................. .................. .................. .................. .................. .................. ............... Disposition: Fulfilled Sandy Fernández MD [address] [place] [address],[address], [place], [phone], [employer] 03/29/2023 21:02:04 11/12/2023 text/html HPI: HX Anemia. [...] .................. .................. .................. .................. .................. .................. ............... Medical Numerical Control Operator Note From Dre Pack: Dispatched to the [...] ............... Disposition: Fulfilled Yuli Betancourt MD [address] [facility],[address], [place], [address], [employer] - [employer] 11/12/2023 21:44:43 OBGyn Episode No OBEpisode recorded.
--- OUTSIDE RECORDS SUMMARY | 2025-01-30 13:25 | XMS_ITS | Encounter Summary ---
Author Organization [employer] Address [address] 7t [place] [address] Care Team Providers Care Coupon And Bond Collection Clerk Name Role Phone Sofia Montalvo MD Primary Care Provide r Reason for Visit * Reason Comments Med Refill Encounter Details Date Type Department Care Team ([facility] st Contact Info) Description 08/24/2023 Refill [facility] [address] [place], [place] [phone] Sofia Montalvo MD 230 [place], [place] [phone] Other chronic pain Social History Tobacco Use [...] Care Team (Late st Contact Info) Description 02/26/2025 1:00 PM EDT Clinical Support [facility] [address] [place] [address] [phone] Crystal Head RN 03/30/2025 10:30 AM EDT Telemedicine [facility] [address] [place] [address] [phone] 06/22/2025 3:00 PM EDT Office Visit [facility] ADULT DENTAL [address] [place] [address] [phone] Socorro Johnson documented as of this encounter Visit Diagnoses Diagnosis Other chronic pain documented in this encounter Care Teams Coupon And Bond Collection Clerk Relationship Specialty Start Date End Date Sofia Montalvo MD [address] [place] [address] [phone] PCP - General Family Medicine 09/23/21 documented as of this encounter
--- OUTSIDE RECORDS SUMMARY | 2025-01-30 13:25 | XMS_ITS | Encounter Summary ---
Author Organization [employer] Address [address] 7t [place] [address] Care Team Providers Care Farm Equipment Operator Name Role Phone Sofia Montalvo MD Primary Care Provide r Encounter Details Date Type Department Care Team (Late Contact Info) Description 07/06/2023 Orders Only [facility] [address] [place] [address] [phone] Provider, MD Alli Social History Tobacco Use [...] Department Care Team (Late Contact Info) Description 02/26/2025 1:00 PM EDT Clinical Support [facility] [address] [place] [address] [phone] Crystal Head RN 03/30/2025 10:30 AM EDT Telemedicine [facility] [address] [place] [address] [phone] 06/22/2025 3:00 PM EDT Office Visit [facility] ADULT DENTAL [address] [place] [address] [phone] Socorro Johnson documented as of this encounter Procedures Procedure Name Priority Date/Time Associated Diagnosis Comments BIOPSY CERVIX Routine 04/19/2021 documented in this encounter Results * Biopsy cervix (04/19/2021) us Historical Provider MD IN CLINIC/BEDSIDE ORDERAB LES Final Result documented in this encounter Visit Diagnoses Not on filedocumented in this encounter Care Teams Farm Equipment Operator Relationship Specialty Start Date End Date Sofia Montalvo MD [address] [place] [address] [phone] PCP - General Family Medicine 09/23/21 documented as of this encounter
--- OUTSIDE RECORDS SUMMARY | 2025-01-30 13:25 | XMS_ITS | Encounter Summary ---
Author Organization [employer] Address [address] 7t [place] [address] Care Team Providers Care Hemotherapist Name Role Phone Sofia Montalvo MD Primary Care Provide r Encounter Details Date Type Department Care Team (Late Contact Info) Description 07/06/2023 Abstract [facility] [address] [place] [address] [phone] Dayana Erazo Social History Tobacco Use Types [...] Description 02/26/2025 1:00 PM EDT Clinical Support [facility] [address] [place] [address] [phone] Crystal Head RN 03/30/2025 10:30 AM EDT Telemedicine [facility] [address] [place] [address] 42536 06/22/2025 3:00 PM EDT Office Visit [facility] ADULT DENTAL [address] [place] [address] [phone] Socorro Johnson documented as of this encounter [...] lesion or malignancy, Other HPV Detected Alli Martínez MD HEALTH MAINTENANCE Final Result * Biopsy cervix (06/07/2021) Historical Provider IN CLINIC/BEDSIDE ORDERAB LES Final Result documented in this encounter Visit Diagnoses Not on filedocumented in this encounter Care Teams Hemotherapist Relationship Specialty Start Date End Date Sofia Montalvo MD [address] [place] [address] [phone] PCP - General Family Medicine 09/23/21 documented as of this encounter
--- OUTSIDE RECORDS SUMMARY | 2025-01-30 13:25 | XMS_ITS | Encounter Summary ---
Author Organization [employer] [facility] Address [address] 7t [place] [address] Care Team Providers Care Train Operations Manager Name Role Phone Sofia Montalvo MD Primary Care Provide r Encounter Details Date Type Department Care Team (Latest Contact Info) Description 01/21/2019 Abstract [facility] CONVERSIONS Dental, Provider, DDS Social History [...] Encounters Date Type Department Care Team ( Contact Info) Description 02/26/2025 1:00 PM EDT Clinical Support [facility] MEDICINE [address] [place] [address] [phone] Crystal Head RN 03/30/2025 10:30 AM EDT Telemedicine [facility] MEDICINE [address] [place] [address] [phone] 06/22/2025 3:00 PM EDT Office Visit [facility] ADULT DENTAL [address] [place] [address] [phone] Socorro Johnson documented as of this encounter Visit Diagnoses Not on filedocumented in this encounter Care Teams Train Operations Manager Relationship Specialty Start Date End Date Sofia Montalvo MD [address] [place] [phone] PCP - General Family Medicine 09/23/21 documented as of this encounter
--- OUTSIDE RECORDS SUMMARY | 2025-01-30 13:25 | XMS_ITS | Encounter Summary ---
Author Organization [employer] Address [address] 7t [place] [address] Care Team Providers Care Inspector Metal Can Name Role Phone Sofia Montalvo MD Primary Care Provide r Reason for Visit * Reason Comments Med Refill Encounter Details Date Type Department Care Team ([facility] st Contact Info) Description 01/28/2025 Refill [facility] MEDICINE 230 [place], [place] [phone] Sofia Montalvo MD 230 [place], [place] [phone] Social History Tobacco Use Types Packs/Day Years [...] Description 02/26/2025 1:00 PM EDT Clinical Support [facility] MEDICINE [address] [place] [address] [phone] Crystal Head RN 03/30/2025 10:30 AM EDT Telemedicine [facility] MEDICINE [address] [place] [address] [phone] 06/22/2025 3:00 PM EDT Office Visit [facility] ADULT DENTAL [address] [place] [address] [phone] Socorro Johnson documented as of this encounter Visit Diagnoses Not on filedocumented in this encounter Additional Health Concerns Assessment Noted Time PHQ-9 Depression Total Score: 15 025 1:50 PM EDT documented as of this encounter Care Teams Inspector Metal Can Relationship Specialty Start Date End Date Sofia Montalvo MD [address] [place] [address] [phone] PCP - General Family Medicine 09/23/21 documented as of this encounter
--- OUTSIDE RECORDS SUMMARY | 2025-01-30 13:25 | XMS_ITS | Encounter Summary ---
Author Organization [employer] Address [address] 7t [place] [address] Care Team Providers Care Washery Engineer Name Role Phone Sofia Montalvo MD Primary Care Provide r Reason for Visit * Reason Comments Med Refill Encounter Details Date Type Department Care Team ([facility] Contact Info) Description 09/29/2022 Refill [facility] [address] [place], [place] [phone] Mandie Burton ANP 230 [place], [place] [phone] Social History Tobacco Use Types Packs/Day Years [...] Upcoming Encounters Date Type Department Care Team ([facility] Contact Info) Description 02/26/2025 1:00 PM EDT Clinical Support [facility] MEDICINE 230 [place], [place] [phone] Crystal Head, MICHELLE 03/30/2025 10:30 AM EDT Telemedicine [facility]INE [address] [place] [address] 06/22/2025 3:00 PM EDT Office Visit [facility] ADULT DENTAL [address] [place] [address] Socorro Johnson documented as of this encounter Visit Diagnoses Not on filedocumented in this encounter Care Teams Washery Engineer Relationship Specialty Start Date End Date Sofia Montalvo MD [address] [place] [address] [phone] PCP - General Family Medicine 09/23/21 documented as of this encounter
--- OUTSIDE RECORDS SUMMARY | 2025-01-30 13:25 | XMS_ITS | Encounter Summary ---
Author Organization [employer] [facility] Address [address] 7t [place] [address] Care Team Providers Care Winery Cellar Hand Name Role Phone Sofia Montalvo MD Primary Care Provide r Encounter Details Date Type Department Care Team (Latest Contact Info) Description 12/20/2020 Abstract [facility] CONVERSIONS Dental, Provider, DDS Social History [...] Description 02/26/2025 1:00 PM EDT Clinical Support [facility] MEDICINE [address] [place] [address] [phone] Crystal Head RN 03/30/2025 10:30 AM EDT Telemedicine [facility] MEDICINE [address] [place] [address] [phone] 06/22/2025 3:00 PM EDT Office Visit [facility] ADULT DENTAL [address] [place] [address] [phone] Socorro Johnson documented as of this encounter Visit Diagnoses Not on filedocumented in this encounter Care Teams Winery Cellar Hand Relationship Specialty Start Date End Date Sofia Montalvo MD [address] [place] [address] [phone] PCP - General Family Medicine 09/23/21 documented as of this encounter
--- OUTSIDE RECORDS SUMMARY | 2025-01-30 13:25 | XMS_ITS | Encounter Summary ---
Author Organization [employer] Address [address] 7t [place] [address] Care Team Providers Care Community Support Specialist Name Role Phone Sofia Montalvo MD Primary Care Provide r Encounter Details Date Type Department Care Team ([facility] st Contact Info) Description 12/09/2024 Telephone [facility] MEDICINE 230 [place], [place] [phone] Sofia Montalvo MD [address] [place], [place] [phone] Social History Tobacco Use Types Packs/Day Years [...] Description 02/26/2025 1:00 PM EDT Clinical Support [facility] MED[facility]INE [address] [place] [address] [phone] Crystal Head RN 03/30/2025 10:30 AM EDT Telemedicine [facility] [address] [place] [address] [phone] 06/22/2025 3:00 PM EDT Office Visit [facility] ADULT DENTAL [address] [place] [address] [phone] Socorro Johnson documented as of this encounter Visit Diagnoses Not on filedocumented in this encounter Care Teams Community Support Specialist Relationship Specialty Start Date End Date Sofia Montalvo MD [address] [place] [address] [phone] PCP - General Family Medicine 09/23/21 documented as of this encounter
--- OUTSIDE RECORDS SUMMARY | 2025-01-30 13:25 | XMS_ITS | Encounter Summary ---
Author Organization [employer] Address [address] 7t [place] [address] Care Team Providers Care Manager Laundry Name Role Phone Sofia Montalvo MD Primary Care Provide r Reason for Visit * Reason Comments Med Refill Encounter Details Date Type Department Care Team ([facility] st Contact Info) Description 08/23/2023 Refill [facility] MEDICINE 230 [place], [place] [phone] Sofia Montalvo MD 230 [place], [place] [phone] Other chronic pain Social History Tobacco Use [...] Description 02/26/2025 1:00 PM EDT Clinical Support [facility] MEDICINE [address] [place] [address] [phone] Crystal Head RN 03/30/2025 10:30 AM EDT Telemedicine [facility] MED[facility]INE [address] [place] [address] [phone] 06/22/2025 3:00 PM EDT Office Visit [facility] ADULT DENTAL [address] [place] [address] [phone] Socorro Johnson documented as of this encounter Visit Diagnoses Diagnosis Other chronic pain documented in this encounter Care Teams Manager Laundry Relationship Specialty Start Date End Date Sofia Montalvo MD [address] [place] [address] [phone] PCP - General Family Medicine 09/23/21 documented as of this encounter
--- OUTSIDE RECORDS SUMMARY | 2025-01-30 13:25 | XMS_ITS | Encounter Summary ---
Author Organization [employer] Address [address] [facility]t [place] [address] Care Team Providers Care Heavy Machinery Assembler Name Role Phone Sofia Montalvo MD Primary Care Provide r Encounter Details Date Type Department Care Team ([facility] st Contact Info) Description 03/13/2024 Telephone [facility]INE 230 [place], [place] [phone] Sofia Montalvo MD 230 [place], [place] [phone] Social History Tobacco Use Types Packs/Day Years [...] Description 02/26/2025 1:00 PM EDT Clinical Support [facility] [address] [place] [address] [phone] Crystal Head RN 03/30/2025 10:30 AM EDT Telemedicine [facility] [address] [place] [address] [phone] 06/22/2025 3:00 PM EDT Office Visit [facility] ADULT DENTAL [address] [place] [address] [phone] Socorro Johnson documented as of this encounter Visit Diagnoses Not on filedocumented in this encounter Care Teams Heavy Machinery Assembler Relationship Specialty Start Date End Date Sofia Montalvo MD [address] [place] [address] [phone] PCP - General Family Medicine 09/23/21 documented as of this encounter
--- OUTSIDE RECORDS SUMMARY | 2025-01-30 13:25 | XMS_ITS | Encounter Summary ---
Author Organization [employer] Address [address] 7t [place] [address] Care Team Providers Care Research Assistant Member Name Role Phone Sofia Montalvo MD Primary Care Provide r Encounter Details Date Type Department Care Team (Late Contact Info) Description 10/20/2022 Orders Only [facility] [address] [place] [address] [phone] Jasmyne Hutchison MD [address] [place] [address] [phone] Blurry vision (Primary Dx) Social History Tobacco [...] Description 02/26/2025 1:00 PM EDT Clinical Support [facility] [address] [place] [address] [phone] Crystal Head RN 03/30/2025 10:30 AM EDT Telemedicine [address] [phone] 06/22/2025 3:00 PM EDT Office Visit [facility] ADULT DENTAL 230 [place] [address] Socorro Johnson documented as of this encounter Visit Diagnoses Diagnosis Blurry vision- Primary Other specified visual disturbances documented in this encounter Care Teams Research Assistant Member Relationship Specialty Start Date End Date Sofia Montalvo MD 230 [place] [address] PCP - General Family Medicine 09/23/21 documented as of this encounter
--- OUTSIDE RECORDS SUMMARY | 2025-01-30 13:25 | XMS_ITS | Encounter Summary ---
Author Organization [employer] Address [address] [facility] [address] 7t [place] [address] Care Team Providers Care Geothermal Field Technician Name Role Phone Sofia Montalvo MD Primary Care Provide r Reason for Visit * Reason Comments Med Refill Encounter Details Date Type Department Care Team ([facility] st Contact Info) Description 02/25/2024 Refill [facility] MED[facility]INE 230 [place], [place] [phone] Sofia Montalvo MD 230 [place], [place] [phone] Lumbar disc disease Social History Tobacco Use [...] Description 02/26/2025 1:00 PM EDT Clinical Support [facility] [address] [place] [address] [phone] Crystal Head RN 03/30/2025 10:30 AM EDT Telemedicine [facility] [address] [place] [address] [phone] 06/22/2025 3:00 PM EDT Office Visit [facility] ADULT DENTAL [address] [place] [address] [phone] Socorro Johnson documented as of this encounter Visit Diagnoses Diagnosis Lumbar disc disease Other and unspecified disc disorder of lumbar region documented in this encounter Care Teams Geothermal Field Technician Relationship Specialty Start Date End Date Sofia Montalvo MD [address] [place] [address] [phone] PCP - General Family Medicine 09/23/21 documented as of this encounter
--- OUTSIDE RECORDS SUMMARY | 2025-01-30 13:25 | XMS_ITS | Encounter Summary ---
Author Organization [employer] Address [address] 7[address] [place] [address] Care Team Providers Care Dry Cleaning Supervisor Name Role Phone Sofia Montalvo MD Primary Care Provide r Reason for Visit * Reason Comments Med Refill Encounter Details Date Type Department Care Team ([facility] st Contact Info) Description 02/18/2024 Refill [facility] MEDICINE 230 [place], [place] [phone] Sofia Montalvo MD 230 [place], [place] [phone] Chronic diarrhea Social History Tobacco Use Types [...] Description 02/26/2025 1:00 PM EDT Clinical Support [facility] MED[facility]INE [address] [place] [address] [phone] Crystal Head RN 03/30/2025 10:30 AM EDT Telemedicine [facility] MED[facility] [address] [place] [address] 17635 06/22/2025 3:00 PM EDT Office Visit [facility] ADULT DENTAL [address] [place] [address] [phone] Socorro Johnson documented as of this encounter Visit Diagnoses Diagnosis Chronic diarrhea Diarrhea documented in this encounter Care Teams Dry Cleaning Supervisor Relationship Specialty Start Date End Date Sofia Montalvo MD [address] [place] [address] [phone] PCP - General Family Medicine 09/23/21 documented as of this encounter
--- OUTSIDE RECORDS SUMMARY | 2025-01-30 13:26 | XMS_ITS | Clinical Summary ---
Author Organization [employer] Address [address] [place] [address] Care Team Providers Care Furniture Decals Inspector Name Role Phone Sofia Montalvo MD Primary Care Provide r Allergies Active Allergy Reactions Criticality Noted Date Comments Ibuprofen 05/29/2017 Medications * This document contains information received from the source organization and may not represent a complete record from that organization. pregabalin (Lyrica) 150 MG capsule Take 1 capsule by mouth every 12 (twelve) hours. 022 Active Blood Pressure Monitor kitIndications: Essential hypertension Use as directed 3x/week 1 kit 023 Active Blood Glucose Monitoring Suppl (ONE TOUCH ULTRA 2) w/Device kit TEST BLOOD SUGAR DAILY DIRECTED 1 kit 023 Active OneTouch Delica Lancets 33G misc TEST BLOOD SUGAR DAILY DIRECTED 100 each 5 023 Active albuterol (2.5 MG/3ML) 0.083% nebulizer solutionIndicat ions:COPD with acute exacerbation (CMS/HCC) Take 3 mL (2.5 mg) by nebulization every 4 (four) hours if needed for wheezing. 75 mL 3 024 Active cholecalciferol VITAMIN D (Vitamin D-3) 50 MCG (2000 UT) tablet Take 1 tablet (50 mcg) by mouth Once per day. 90 tablet 3 024 Active ascorbic acid (Vitamin C) 250 MG tablet Take 1 tablet (250 mg) by mouth every other day. 90 tablet 1 024 Active hydrocortisone (Anusol-HC) 2.5 % rectal creamIndication s:Hemorrhoids, unspecified hemorrhoid type INSERT INTO THE RECTUM TWICE A DAY 28 g 1 024 Active Gas Relief Extra Strength 125 MG chewable tabletIndicatio ns:Bloating TAKE 1 TABLET BY MOUTH 4 TIMES A DAY IN THE MORNING, AT NOON, IN THE EVENING, AND AT BEDTIME NEEDED FOR GAS 60 tablet 1 024 Active budesonide (Pulmicort) 0.5 MG/2ML nebulizer solution Take 0.5 mg by nebulization in the morning and at bedtime. 024 Active naloxone (Narcan) 4 mg/0.1 mL nasal spray Administer 1 spray into affected nostril(s) if needed for opioid reversal or respiratory depression. Repeat in alternate nostril in 2-3 minutes if needed. Seek medical attention immediately even if patient responds. 024 Active clotrimazole (Lotrimin) 1 % cream APPLY TOPICALLY TWICE DAILY IN THE MORNING AND AT BEDTIME NEEDED FOR RASH 30 g 2 024 Active albuterol (Ventolin HFA) 108 (90 Base) MCG/ACT inhalerIndicati ons:Mild intermittent asthma without complication INHALE 2 PUFFS BY MOUTH FOUR TIMES DAILY 18 g 2 024 Active ketoconazole (NIZOral) 2 % shampooIndicati ons:Seborrheic dermatitis of scalp APPLY TO SCALP AND LEAVE ON FOR 5 MINUTES THEN RINSE OFF TWICE A WEEK 120 mL 1 024 Active acetaminophen (Tylenol 8 Hour) 650 MG ER tabletIndicatio ns:Lumbar disc disease Take 2 tablets (1,300 mg) by mouth every 8 (eight) hours if needed for mild pain. TAKE 1 TABLET BY MOUTH EVERY 8 HOURS NEEDED FOR MILD PAIN OR FOR MODERATE PAIN 60 tablet 3 024 Active polycarbophil (Fibercon) 625 MG tabletIndicatio ns:Chronic diarrhea Take 1 tablet (625 mg) by mouth 2 times daily. 60 tablet 11 024 2024 Active loperamide (Imodium) 2 MG capsuleIndicati ons:Chronic diarrhea Take 1 capsule (2 mg) by mouth if needed in the morning, at noon, in the evening, and at bedtime for diarrhea. 30 capsule 1 024 Active metFORMIN (Glucophage) 500 MG tabletIndicatio ns:Type 2 diabetes mellitus with other specified complication, unspecified whether jail insulin use (CMS/HCC) TAKE 1 TABLET BY MOUTH TWICE DAILY IN THE MORNING AND IN THE EVENING 180 tablet 1 024 Active chlorthalidone (Hygroton) 50 MG tabletIndicatio ns:Essential hypertension TAKE 1 TABLET BY MOUTH EVERYDAY AT NOON 30 tablet 5 025 Active losartan (Cozaar) 100 MG tabletIndicatio ns:Essential hypertension TAKE 1 TABLET BY MOUTH EVERYDAY AT NOON 90 tablet 025 Active lactulose (Chronulac) 10 GM/15ML solutionIndicat ions:Drug induced constipation TAKE 15 ML BY MOUTH TWICE DAILY 150 mL 2 025 Active atenolol (Tenormin) 50 MG tabletIndicatio ns:Essential hypertension TAKE 1 TABLET BY MOUTH EVERY EVENING 30 tablet 5 025 Active ferrous gluconate (Ferate) 240 (27 Fe) MG tabletIndicatio ns:Iron deficiency anemia, unspecified iron deficiency anemia type TAKE 1 TABLET BY MOUTH EVERY OTHER DAY IN THE MORNING 15 tablet 5 025 Active fluticasone (Flonase) 50 MCG/ACT nasal sprayIndication s:Chronic obstructive pulmonary disease, unspecified COPD type (CMS/HCC) USE 1 SPRAY IN EACH NOSTRIL TWICE DAILY 48 g 025 Active polyethylene glycol, PEG, 3350 (Miralax) 17 g packetIndicatio ns:Chronic idiopathic constipation Take 17 g by mouth Once per day. 30 packet 11 025 2025 Active docusate sodium (Colace) 100 MG capsuleIndicati ons:Chronic idiopathic constipation Take 1 capsule (100 mg) by mouth 2 times daily. 60 capsule 11 025 2025 Active senna (Senokot) 8.6 MG tabletIndicatio ns:Chronic idiopathic constipation Take 1 tablet (8.6 mg) by mouth at bedtime. 120 tablet 025 Active pantoprazole (Protonix) 40 MG EC tabletIndicatio ns:Gastroesopha geal reflux disease without esophagitis Take 1 tablet (40 mg) by mouth before breakfast and before evening meal. Do not crush, chew, or split. 60 tablet 11 025 2025 Active simvastatin (Zocor) 40 MG tabletIndicatio ns:Hypertriglyc eridemia TAKE 1 TABLET BY MOUTH AT BEDTIME 30 tablet 11 Active zolpidem (Ambien) 5 MG tabletIndicatio ns:Mixed anxiety and depressive disorder Take 1 tablet (5 mg) by mouth if needed at bedtime for sleep. 30 tablet 025 2024 Active clonazePAM (KlonoPIN) 0.5 MG tabletIndicatio ns:Mixed anxiety and depressive disorder Take 1 tablet (0.5 mg) by mouth Once per day. 30 tablet 025 2024 Active escitalopram (Lexapro) 10 MG tabletIndicatio ns:Mixed anxiety and depressive disorder Take 1 tablet (10 mg) by mouth in the morning. 30 tablet 1 025 2024 Active doxepin (SINEquan) 50 MG capsuleIndicati ons:Mixed anxiety and depressive disorder Take 1 capsule (50 mg) by mouth at bedtime. 30 capsule 5 Active busPIRone (Buspar) 10 MG tabletIndicatio ns:Mixed anxiety and depressive disorder Take 1 tablet (10 mg) by mouth 2 times daily. 60 tablet 1 025 2024 Active cetirizine (ZyrTEC) 10 MG tablet TAKE 1 TABLET BY MOUTH EVERYDAY AT NOON 90 tablet 3 Active cetirizine (ZyrTEC) 10 MG tablet TAKE 1 TABLET BY MOUTH EVERYDAY AT NOON 90 tablet 3 024 2024 Discontinued clonazePAM (KlonoPIN) 0.5 MG tablet Take 0.5 mg by mouth if needed in the morning and at bedtime for anxiety. 024 2024 Discontinued(A lternate therapy) doxepin (SINEquan) 50 MG capsule TAKE 1 CAPSULE BY MOUTH AT BEDTIME 30 capsule 5 025 2024 Discontinued(R eorder (will not trigger notification to Pharmacy)) escitalopram (Lexapro) 10 MG tablet TAKE 1 TABLET BY MOUTH EVERY MORNING 30 tablet 5 025 2024 Discontinued(R eorder (will not trigger notification to Pharmacy)) clonazePAM (KlonoPIN) 0.5 MG tabletIndicatio ns:Mixed anxiety and depressive disorder Take 1 tablet (0.5 mg) by mouth 2 times daily. 60 tablet 025 2024 Discontinued zolpidem (Ambien) 10 MG tabletIndicatio ns:Mixed anxiety and depressive disorder Take 1 tablet (10 mg) by mouth if needed at bedtime for sleep. 30 tablet 025 2024 Discontinued zolpidem (Ambien) 10 MG tabletIndicatio ns:Mixed anxiety and depressive disorder TAKE 1 TABLET BY MOUTH AT BEDTIME NEEDED FOR SLEEP 30 tablet 025 2024 Discontinued(R eorder (will not trigger notification to Pharmacy)) clonazePAM (KlonoPIN) 0.5 MG tabletIndicatio ns:Mixed anxiety and depressive disorder TAKE 1 TABLET BY MOUTH TWICE DAILY 60 tablet 025 2024 Discontinued(R eorder (will not trigger notification to Pharmacy)) Active Problems Problem Noted Date Diagnosed Date [...] PM EDT): I will refer patient to business taxes specialist for evaluation of face, arm and [...] Plan (12/15/2024 2:34 PM EDT): Counseling done [facility] called today for possible initiations of services [...] organization. Date Type Department Care Team Description 01/28/2025 Refill [facility] MEDICINE [address] [place] [address] Sofia Montalvo MD 01/23/2025 Telephone [facility] MEDICINE [address] [place] [address] Sofia Montalvo MD FYI 01/23/2025 Telephone [facility] MEDICINE [address] [place] [address] Sofia Montalvo MD Triage nurse 01/22/2025 2:30 PM EDT Office Visit [facility] ADULT DENTAL [address] [place] [address] Andrey De Jesus DDS Dental caries (Primary Dx) 01/21/2025 Telephone [facility] MEDICINE [address] [place] [address] Sofia Montalvo MD Durable Medical Equipment 01/14/2025 Refill [facility] MED[facility]INE [address] [place] [address] Sofia Montalvo MD Mixed anxiety and depressive disorder 12/31/2024 Telephone [facility] MED[facility]INE [address] [place] [address] Sofia Montalvo MD Durable Medical Equipment 12/30/2024 Telephone [facility] MED[facility]INE [address] [place] [address] Sofia Montalvo MD telephone call 12/29/[address] [address] Sofia Montalvo MD stable lab letter 12/28/[address] [address] Sofia Montalvo MD Hypertriglyceridemia 12/25/2024 Orders Only GENERIC EXTERNAL DATA DEPARTMENT Provider, Generic External Data 12/24/[address] [address] Sofia Montalvo MD Durable Medical Equipment 12/19/[address] [address] Crystal Head, MICHELLE Schedule FILAMENT CUTTER Initial appt 12/17/2024 11:00 AM EDT Office Visit [facility] ADULT DENTAL [address] [place] [phone] Socorro oJhnson Dental calculus (Primary Dx); Dental plaque; Dental caries 12/15/2024 1:30 PM EDT Office Visit [address] [address] Sofia Montalvo MD Folliculitis (Primary Dx); Type 2 diabetes mellitus without complication, without long-term current use of insulin ([facility]); Pulmonary nodule; Atelectasis; Mixed anxiety and depressive disorder 12/12/2024 11:45 AM EST Office Visit [address] [address] [facility] Chronic idiopathic constipation (Primary Dx); Gastroesophageal reflux disease without esophagitis 12/12/2024 Travel 12/12/[address] [address] Sofia Montalvo MD Chart Prep 12/10/[address] [address] Sofia Montalvo MD Nurse Triage 12/09/[address] [address] Sofia Montalvo MD 12/09/2024 Refill [facility] MED[facility]INE [address] [place] [address] Sofia Montalvo MD 12/02/2024 Telephone [facility] MEDICINE [address] [place] [address] Sofia Montalvo MD Durable Medical Equipment (DME Request: Incontinence Supplies) 12/01/2024 Refill [facility] [address] [place] [address] Sofia Montalvo MD Chronic obstructive pulmonary disease, unspecified COPD type ([facility]) 11/29/2024 Refill [facility] [address] [place] [address] Sofia Montalvo MD Essential hypertension; Iron deficiency anemia, unspecified iron deficiency anemia type 11/28/2024 Refill [facility] MEDICINE [address] [place] [address] Sofia Montalvo MD Chronic diarrhea 11/27/2024 Refill C MEDICINE [address] [place] [address] Sofia Montalvo MD Drug induced constipation 11/20/2024 Telephone [facility] MED[facility]INE [address] [place] [address] Sofia Montalvo MD Results 11/20/2024 Orders Only [facility] [address] [place] [address] Sofia Montalvo MD Pulmonary nodules (Primary Dx); Atelectasis 11/18/2024 Telephone [facility] MED[facility]INE [address] [place] [address] Sofia Montalvo MD Nurse Triage 11/05/2024 Orders Only External Provider, [facility] 11/02/2024 Refill [facility] MED[facility]INE [address] [place] [address] Sofia Montalvo MD Essential hypertension from Last 3 Months Immunizations Name Administration [...] Sign Reading Time Taken Comments Blood Pressure 134/76 01/22/2025 2:46 PM EDT Pulse 70 01/22/2025 2:46 PM EDT Temperature 37.1 ??C (98.7 ??F) [...] Description 02/26/2025 1:00 PM EDT Clinical Support [facility] MEDICINE [address] [place] [phone] Crystal Head, RN 03/30/2025 10:30 AM EDT Telemedicine [facility] MEDICINE [address] [place] [phone] 06/22/2025 3:00 PM EDT Office Visit [facility] ADULT DENTAL [address] [place] [address] Socorro Johnson Health Maintenance Due Date Last [...] 02/17/2025 02/18/2024, 08/07/2022, 09/27/2021, Additional history exists Diabetes: Hemoglobin A1C 06/17/2025 025, 06/30/2024, 01/17/2024, Additional history exists Dental Oral Exam 06/20/2025 12/17/2024, 09/11/2022 Dental Prophylaxis 06/20/2025 12/17/2024, 09/11/2022 Mammogram 09/12/2025 09/12/2024, 06/09, 06/21/2022, Additional history exists Alcohol/Substance Use Screening 12/15/2025 12/15/2024 Depression Screening 12/15/2025 12/15/2024, 12/16/19 25 SDOH Screening 12/15/2025 12/15/2024 Tobacco Screening 01/27/2026 01/27/2025 Eye Exam 09/09/2026 09/09/2024, 1212/2023, 09/09/2024, Additional history exists Cervical Cancer Screening [...] Procedure Name Priority Date/Time Associated Diagnosis Comments CASE PRESENTATION, DETAILED AND EXTENSIVE TREATMENT PLANNING Routine 01/22/2025 2:30 PM EDT 23 I RESIN-BASED COMPOSITE - 1 SURF, ANTERIOR Routine 01/22/2025 2:30 PM EDT 24 I RESIN-BASED COMPOSITE - 1 SURF, ANTERIOR Routine 01/22/2025 2:30 PM EDT 25 I RESIN-BASED COMPOSITE - 1 SURF, ANTERIOR Routine 01/22/2025 2:30 PM EDT 26 I RESIN-BASED COMPOSITE - 1 SURF, ANTERIOR Routine 01/22/2025 2:30 PM EDT 26 L(V) RESIN-BASED COMPOSITE - 1 SURF, ANTERIOR Routine 01/22/2025 2:30 PM EDT 26 F(V) RESIN-BASED COMPOSITE - 1 SURF, ANTERIOR Routine 01/22/2025 2:[address] ENTEROGRAPHY ABDOMEN PELVIS W CONTRAST Routine 01/19/2025 2:40 PM EDT XR KUB AND UPRIGHT 2 VIEWS Routine [...] Relevant to Health Maintenance Results * CT Enterography Abdomen Pelvis w/ Contrast (01/19/2025 2:40 PM EDT) Anatomical Region Laterality Modality Computed Tomogra phy 01/19/2025 2:40 PM EDT Narrative 01/19/2025 5:15 PM EDT ? [facility] ?[address] ?[place] [address] ? CT Scan Report ? Signed ? Patient: Norma Arcos ?MR#: M ?? [id number] ? : 1960 ?Acct:[id number] ? Age/Sex: 64 / F ?ADM Date: 01/19/25 ? Loc: HO.CT ? Attending Dr: Sherri Britton MD ? Ordering Physician: Sherri Britton MD ?? Date of Service: 01/19/25 ?? Procedure(s): CT enterography ?? Accession Number(s): [id number] ? cc: Sofia Montalvo MD; Sherri Britton MD ? Report Number: ?? [id number]: Total DLP = ??547.00 mGy-cm ?? EXAMINATION: ?? CT ENTEROGRAPHY ABDOMEN AND PELVIS WITH CONTRAST ? CLINICAL INFORMATION: ?? Chronic constipation. ? COMPARISON: ?? None available. ? TECHNIQUE: ?? Study performed with oral VoLumen (1350 mL) and 480 mL of water to ?? distend the abdomen. The patient was injected with 85 mL Omnipaque 350 ?? intravenous contrast which was administered without adverse effect. ?? Coronal and sagittal reformatted images were obtained at the ?? technologist's workstation. ? This CT examination was [...] *Use of iterative reconstruction technique ?? DLP: 547 ? FINDINGS: ?? LUNG BASES: Heart size is normal. There is mild atelectatic changes in ?? the right middle lobe and lingula. No pericardial or pleural effusion ?? seen. ? GASTROINTESTINAL FINDINGS: ?? Stomach: The stomach is partially distended with fluid's and appears ?? unremarkable. No wall thickening or intraluminal filling defects seen. ? Small intestine: Nonspecific mild thickening of the second and third ?? segment duodenum and proximal jejunum is noted on images 30/3 through ?? 37/3 rest of the small bowel loops are unremarkable. ? Large intestine: Scattered stool is seen in colon without distention. ?? The ileocecal junction is normal. Appendix is not visualized with ?? certainty. ? Additional findings: No abnormal enhancement of the vasa recta or ?? significant mesenteric or retroperitoneal lymphadenopathy is seen. No ?? abdominal abscess or fistulous tract demonstrated. ? ABDOMINAL AND PELVIC CT FINDINGS: ?? Liver, gallbladder, biliary tract: The liver is normal size, contour ?? and density. There is a punctate calcification left hepatic lobe, ?? nonspecific. No intrahepatic ductal dilatation seen. The gallbladder is ?? unremarkable. ? Pancreas: Unremarkable. ? Spleen: Unremarkable. ? Adrenal glands and kidneys: Unremarkable. ? Ureters and bladder: Unremarkable ? Lymphovascular structures: Small shotty lymph nodes in the ?? retroperitoneum.. ? Bones: There is mild degenerative disc changes with vacuum disc ?? phenomena L4-5, L3-4 and L1-2 disc levels. There is mild ventral ?? spondylosis throughout lumbar spine. No aggressive lytic or sclerotic ?? process seen. Grade 1 anterolisthesis L4 over L5 is noted. ? CT/CT enterography ?? IMPRESSION: ?? Mild mural thickening of second and third duodenum and proximal ?? jejunal. Likely inflammatory or infectious etiology. Rest of the small ?? bowel loops is unremarkable. ? Mild constipation. Appendix is not seen. ? Electronically signed by: ??Gen Gamino MD ??01/19/2025 05:13 PM EDT RP ? Dictated By: ?Hanny,Gen S MD ? Signed By: ?<Electronically signed by Gen Gamino MD in OV> ?01/19/25 1713 ? DD/ 1440 ? TD/TT: 01/19/25 1535 ? Composition Siding Worker: MSM ? Procedure Note Donsmita, Sofy - 01/19/[address] [address] [address] Scan Report Signed Patient: Norma ArcosMR#: M [id number] : 9Acct:[id number] Age/Sex: 64 / FADM Date: 01/19/25 Loc: HO.CT Attending Dr: Sherri Britton MD Ordering Physician: Sherri Britton MD Date of Service: 01/19/25 Procedure(s): CT enterography Accession Number(s): [id number] cc: Sofia Montalvo MD; Sherri Britton MD Report Number: [id number]: Total DLP = 547.00 mGy-cm EXAMINATION: CT ENTEROGRAPHY ABDOMEN AND PELVIS WITH CONTRAST CLINICAL INFORMATION: Chronic constipation. COMPARISON: None available. TECHNIQUE: Study performed with oral VoLumen (1350 mL) and 480 mL of water to distend the abdomen. The patient was injected with 85 mL Omnipaque 350 intravenous contrast which was administered without adverse effect. Coronal and sagittal reformatted images were obtained at the technologist's workstation. This CT examination was performed using dose optimization techniques as appropriate, variously including the following: *Automated exposure control *Adjustment of mA and/or kV according to patient size (this includes techniques or standardized protocols for targeted exams where dose is matched to indication/reason for exam; i.e. extremities or head) *Use of iterative reconstruction technique DLP: 547 FINDINGS: LUNG BASES: Heart size is normal. There is mild atelectatic changes in the right middle lobe and lingula. No pericardial or pleural effusion seen. GASTROINTESTINAL FINDINGS: Stomach: The stomach is partially distended with fluid's and appears unremarkable. No wall thickening or intraluminal filling defects seen. Small intestine: Nonspecific mild thickening of the second and third segment duodenum and proximal jejunum is noted on images 30/3 through 37/3 rest of the small bowel loops are unremarkable. Large intestine: Scattered stool is seen in colon without distention. The ileocecal junction is normal. Appendix is not visualized with certainty. Additional findings: No abnormal enhancement of the vasa recta or significant mesenteric or retroperitoneal lymphadenopathy is seen. No abdominal abscess or fistulous tract demonstrated. ABDOMINAL AND PELVIC CT FINDINGS: Liver, gallbladder, biliary tract: The liver is normal size, contour and density. There is a punctate calcification left hepatic lobe, nonspecific. No intrahepatic ductal dilatation seen. The gallbladder is unremarkable. Pancreas: Unremarkable. Spleen: Unremarkable. Adrenal glands and kidneys: Unremarkable. Ureters and bladder: Unremarkable Lymphovascular structures: Small shotty lymph nodes in the retroperitoneum.. Bones: There is mild degenerative disc changes with vacuum disc phenomena L4-5, L3-4 and L1-2 disc levels. There is mild ventral spondylosis throughout lumbar spine. No aggressive lytic or sclerotic process seen. Grade 1 anterolisthesis L4 over L5 is noted. CT/CT enterography IMPRESSION: Mild mural thickening of second and third duodenum and proximal jejunal. Likely inflammatory or infectious etiology. Rest of the small bowel loops is unremarkable. Mild constipation. Appendix is not seen. Electronically signed by: Gen Gamino MD 01/19/2025 05:13 PM EDT Dictated By: Gen Gamino MD Signed By: <Electronically signed by Gen Gamino MD in OV> 01/19/25 1713 DD/ 1440 TD/TT: 01/19/25 1535 Composition Siding Worker: DORIS [facility] External Provider IMG CT PROCEDURES Edited Result - Final * XR KUB and Upright 2 Views (12/25/2024 2:03 PM EDT) Anatomical Region Laterality Modality Radiographic Linette ging 12/25/2024 2:03 PM EDT Narrative 12/26/2024 8:49 AM EDT ? [facility] ?[address] ?[place] [address] ?XRay Report ? Signed ? Patient: Arcos,Norma Isabel ?MR#: M ?? [id number] ? : 1960 ?Acct:[id number] ? Age/Sex: 64 / F ?ADM Date: 12/25/24 ? Loc: HO.XRAY ? Attending Dr: Sherri Britton MD ? Ordering Physician: Sherri Britton MD ?? Date of Service: 12/25/24 ?? Procedure(s): XR KUB ?? Accession Number(s): [id number] ? cc: Sofia Montalvo MD; Sherri Britton [...] ??Sunil Mohan MD ??12/26/2024 08:46 AM EDT ?? RP ? Dictated By: ?Sunil Mohan MD ? Signed By: ?<Electronically signed by Sunil Mohan MD in OV> ?12/26/24 0846 ? DD/ 1403 ? TD/TT: 12/25/24 1418 ? Composition Siding Worker: ? Procedure Note Sofy Orellana - 12/26/[address] [address] XRay Report Signed Patient: Norma Arcos IvetteMR#: M [id number] : 9Acct:[id number] Age/Sex: 64 / FADM Date: 12/25/24 Loc: HO.XRAY Attending Dr: Sherri Britton MD Ordering Physician: Sherri Britton MD Date of Service: 12/25/24 Procedure(s): XR KUB Accession Number(s): [id number] cc: Sofia Montalvo MD; Sherri Britton MD [...] 12/26/24 0846 DD/ 1403 TD/TT: 12/25/24 1418 Composition Siding Worker: [facility] External Provider IMG XR PROCEDURES Final Result * (ABNORMAL) CBC auto differential (12/25/2024 2:01 PM EDT) White Blood Count 7.9 4.8 - 10.8 X10*3/uL LABS Red Blood Count 3.85(L) 4.20 - 5.50 X10*6/uL LABS Hemoglobin 11.8(L) 12.0 - 16.0 g/dl LABS Hematocrit 35.9(L) 37.0 - 47.0 % LABS Mean Corpuscular Volume 93.2 80.0 - 98.0 fL LABS Mean Corpuscular Hemoglobin 30.6 27.0 - 33.0 pg LABS Mean Corpuscular HGB Conc 32.9 31.0 - 35.0 g/dl LABS Red Cell Distribution Width 12.9 11.0 - 16.0 % LABS Platelet Count 283 160 - 400 X10*3/uL LABS Mean Platelet Volume 11.3 9.4 - 12.3 fL LABS Neutrophils Percent Auto 62.7 45 - 73 % LABS Imm Gran Pct Auto 0.4 0.0 - 0.4 % LABS Lymphocytes Percent Auto 26.4 20 - 40 % LABS Monocytes Percent Auto 7.1 2 - 11 % LABS Eosinophils Percent Auto 2.8 0 - 4 % LABS Basophils Percent Auto 0.6 0 - 2 % LABS NRBC Pct Auto 0.0 0.0 - 0.2 /100WBC LABS Neutrophils Absolute Auto 4.9 2.0 - 8.3 x10*3/uL LABS Imm Gran Abs Auto 0.03 0.00 - 0.03 X10*3/uL LABS Lymphocytes Absolute Auto 2.1 1.2 - 4.9 X10*3/uL LABS Monocytes Absolute Auto 0.6 0.1 - 1.2 X10*3/uL LABS Eosinophils Absolute Auto 0.2 0.0 - 0.4 X10*3/uL LABS Basophils Absolute Auto 0.1 0.0 - 0.2 X10*3/uL LABS NRBC Abs Auto 0.000 0.0 - 0.012 X10*3/uL LABS Blood Venous blood specimen / Unknown 12/25/2024 2:01 PM EDT 12/25/2024 2:01 PM EDT [facility] RENAL SOCIAL WORKER LAB BLOOD ORDERABLES Final Re sult LABS [address] [place] [address] [phone] * Lipase (12/25/2024 4:06 AM EDT) Lipase 20 8 - 78 U/L [facility] LABS 12/25/2024 4:06 AM EDT 12/25/2024 2:01 PM EDT us Generic External Data Provider LAB BLOOD ORDERAB LES Final Result Performing Organization Address City/[facility]/ZIP Co de Phone Number LABS [address] [place] [phone] * Ferritin (12/25/2024 4:06 AM EDT) [facility] Ferritin 51 10 - 250 ng/mL LABS 12/25/2024 4:06 AM EDT 12/25/2024 2:01 PM EDT us Generic External Data Provider LAB BLOOD ORDERAB LES Final Result Performing Organization Address City/[facility]/ZIP Co de Phone Number LABS [address] [place] [phone] * (ABNORMAL) Comprehensive Metabolic Panel (12/25/2024 4:06 AM EDT) [facility] Sodium 137 135 - 145 mmol/L LABS Potassium 4.8 3.3 - 5.1 mmol/L LABS Chloride 98 96 - 108 mmol/L LABS Carbon Dioxide 34(H) 22 - 29 mmol/L LABS Anion Gap 10(L) 12 - 20 LABS Urea Nitrogen (BUN) 15 9 - 16 mg/dL LABS Creatinine, Serum 0.95 0.5 - 1.4 mg/dL LABS Estimated Glomerular Filt Rate 59 LABS Comment:Chronic Kidney Disea se: Estimated GFR < 60 mL/min/1.97h1Kfkxwk Kidney Disease: Estimated GFR < 15 mL/min/1.73m2 Glucose 90 60 - 115 mg/dL LABS Calcium 10.1 8.4 - 10.2 mg/dL LABS Bilirubin, Total 0.3 0.0 - 1.0 mg/dL LABS Aspartate Amino Transferase 21 5 - 31 U/L LABS Alanine Aminotransferase 14 0 - 31 U/L LABS Total Protein 7.1 6.5 - 8.0 g/dL LABS Albumin Level 3.9 3.5 - 5.0 g/dL LABS Alkaline Phosphatase 57 39 - 117 U/L LABS Blood Venous blood specimen / Unknown 12/25/2024 4:06 AM EDT 12/25/2024 2:01 PM EDT Result [facility] LAB BLOOD ORDERABLES Final Re sult LABS [address] [place] [address] [phone] * (ABNORMAL) POCT HGB A1C (12/15/2024 1:56 PM EDT) Hemoglobin A1C 6.2(A) 4.0 - 6.0 % QC Media Lot # [id number] Lot# Expiration Date , Blood 12/15/2024 1:56 PM EDT Sofia Art MD POINT OF CARE TEST EN TER/EDIT ORDERABLES Final Result * POCT Glucose (12/15/2024 1:55 PM EDT) Glucose Blood, POC 151 60 - 200 mg/dL QC Media Lot # [id number] Lot# Expiration Date [id number] Blood Capillary blood specimen / Unknown 12/15/2024 1:55 PM EDT Sofia Art MD POINT OF CARE TEST EN TER/EDIT ORDERABLES Final Result * CT Abdomen Pelvis w/o Contrast (11/05/2024 3:18 PM EST) Anatomical Region Laterality Modality Body, Pelvis, Abdomen Computed T omography 11/05/2024 3:18 PM EST Narrative 11/05/2024 4:02 PM EST ? [facility] ?[address] ?[place], [place] [address] ? CT Scan Report ? Signed ? Patient: Norma Arcos ?MR#: M ?? [id number] ? : 1960 ?Acct:[id number] ? Age/Sex: 64 / F ?ADM Date: 11/05/24 ? Loc: HO.CT ? Attending Dr: Luis Enrique Rees MD ? Ordering Physician: Luis Enrique Rees MD ?? Date of Service: 11/05/24 ?? Procedure(s): CT abdomen pelvis wo IV con ?? Accession Number(s): [id number] ? cc: Sofia Montalvo MD; Luis Enrique Rees MD ? Report Number: ?? [id number]: Total DLP = ??584.00 mGy-cm ?? EXAMINATION: [...] DD/ 1518 ? TD/TT: 11/05/24 1530 ? Composition Siding Worker: MSM ? Procedure Note Donotuseinterpreter, Image - 11/05/[address] [address] [address] Scan Report Signed Patient: Norma ArcosMR#: M [id number] : 9Acct:[id number] Age/Sex: 64 / FADM Date: 11/05/24 Loc: HO.CT Attending Dr: Luis Enrique Rees MD Ordering Physician: Luis Enrique Rees MD Date of Service: 11/05/24 Procedure(s): CT abdomen pelvis wo IV con Accession Number(s): [id number] cc: Sofia Montalvo MD; Luis Enrique Rees MD Report Number: [id number]: Total DLP = 584.00 mGy-cm EXAMINATION: CT [...] 11/05/24 1559 DD/ 1518 TD/TT: 11/05/24 1530 Composition Siding Worker: DORIS [facility] External Provider IMG CT PROCEDURES Edited Result - Final * BI Mammogram Screening Tomosynthesis Bilateral (09/12/2024 1:15 PM EST) Anatomical Region Laterality Modality Breast Bilateral Mammography 09/12/2024 1:15 PM EST Narrative 09/18/2024 1:29 PM EST ? [facility] ? [address] ?[place] [address] ? Mammography Report ? Signed ? Patient: Arcos,Norma Isabel ?MR#: M ?? [id number] ? : 1960 ?Acct:[id number] ? Age/Sex: 64 / F ?ADM Date: 12//24 ? Loc: HO.MAMMO ? Attending Dr: Aryan Estrella MD ? Ordering Physician: Aryan Estrella MD ?Results: 1Negativ ?? e ? Date of Service: 09/12/24 ?Follow Up: 1 Year From Orig ?? inal Mammogram ? Procedure(s): MM tomosynthesis screening BI ?? Accession Number(s): [id number] ? cc: Sofia Montalvo MD; Aryan Estrella [...] DD/ 1315 ? TD/TT: 09/12/24 1338 ? Composition Siding Worker: ? Procedure Note Donotuseinterpreter, Image - 09/19/2024 [facility] [address] [place], [place] [address] Mammography Report Signed Patient: Norma ArcosMR#: M [id number] : 9Acct:[id number] Age/Sex: 64 / FADM Date: 09/12/24 Loc: HO.MAMMO Attending Dr: Aryan Estrella MD Ordering Physician: Aryan Estrella MDResults: 1Negativ e Date of Service: 09/12/24Follow Up: 1 Year From Orig inal Mammogram Procedure(s): MM tomosynthesis screening BI Accession Number(s): [id number] cc: Sofia Montalvo MD; Aryan Estrella MD [...] by: Chelsi Beverly DO 09/18/2024 01:25 PM [facility] Dictated By: Chelsi Beverly DO Signed By: <Electronically signed by Chelsi Beverly DO in OV> 09/18/24 1325 DD/ 1315 TD/TT: 09/12/24 1338 Composition Siding Worker: [facility] External Provider IMG BI PROCEDURES Edited Result - Final * ThinPrep Imaging Pap and HPV mRNA E6/E7 with Reflex to HPV 16,18/45 (07/30/2024 2:16 PM EDT) HPV 16 RNA [facility] LABS HPV 18/45 RNA [facility] LABS HPV nRNA E6/E7 Not Detected Not Detected LABS Comment:Methodology: Transcr iption-Mediated AmplificationThis assay detects E6/E7 viral messenger RNA (mRNA) from 14high-risk HPV types (16,18,31,33,35,39,45,51,52,56,58,59,66,68).Cervical sources are required for HPV testing.If a vaginal source from a patient who has had atotal hysterectomy with removal of cervix wassubmitted, please contact the testing laboratoryfor alternative testing options.For additional information, please refer tohttp://education.Cabify/faq/WMF176p3(This link if provided for information/educational purposes only.)THIS TEST WAS PERFORMED AT:[employer] [place] [phone] ALBERT MD SOURCE: SEE NOTE LABS Comment:Cervix Report Status: [facility] Clinical Information: SEE NOTE LABS Comment:Postmenopausal LMP: SEE NOTE LABS Comment:PM Prev. PAP: SEE NOTE LABS Comment:2022 Prev. BX: SEE NOTE LABS Comment:NONE GIVEN Statement Of Adequacy: SEE NOTE LABS Comment:Satisfactory for hailey luation.Endocervical/transformation zone componentpresent. General Categorization: [facility] LABS Interpretation/Result: SEE NOTE LABS Comment:Cytology Results: Ne gative for intraepitheliallesion or malignancy. Cytology Comment SEE NOTE [facility] LABS Comment:This Pap test has be en evaluated with computerassisted technology. [employer]: SEE NOTE [facility] LABS Comment:RXB, CT(ASCP)CT scre ening location: [address] [address] Review [employer]: SEE NOTE LABS Comment:KF, CT(ASCP)CT scree omari location: [address] [address] Pathologist [facility] LABS PAP Infection [facility] LABS See Note SEE NOTE LABS Comment:EXPLANATORY NOTE:The Pap is a screening test for cervical cancer. It isnot a diagnostic test and is subject to false negativeand false positive results. It is most reliable when asatisfactory sample, regularly obtained, is submittedwith relevant clinical findings and history, and whenthe Pap result is evaluated along with historic andcurrent clinical information. 07/30/2024 2:16 PM EDT 07/30/2024 3:50 PM EDT Narrative LABS - 08/04/2024 3:28 PM EDT SEE [...] Provider LAB PATHOLOGY ORD ERABLES Final Result LABS [address] [place] [address] [phone] * Creatinine, Random Urine (02/18/2024 1:28 PM EDT) Creatinine, Urine 35.20 mg/dL LABS 02/18/2024 1:28 PM EDT 02/18/2024 1:35 PM EDT us Generic External Data Provider LAB URINE ORDERAB LES Final Result Performing Organization Address [facility]/ZIP Co de Phone Number LABS [address] [place] [address] [phone] * (ABNORMAL) Lipid Panel, Standard (12/24/2023 12:56 PM EDT) Triglycerides 344(H) <150 mg/dL [facility] LABS Comment:Desirable Triglyceri de: less than 150 mg/dLBorderline High Triglyceride 150-199 mg/dLHigh Triglyceride: 200-499 mg/dLVery High Triglyceride: greater than or equal to 5OO mg/dL Cholesterol 186 <200 mg/dL LABS Comment:Desirable Cholestero l: less than 200 mg/dLBorderline High Cholesterol: 200-239 mg/dLHigh Cholesterol: greater than 239 mg/dL LDL Cholesterol Calculated 52 <100 mg/dL LABS Comment:Desirable LDL: less than 100 mg/dLNear Optimal/Above Optimal LDL: 110- 129 mg/dLBorderline High LDL: 130-159 mg/dLHigh LDL: 160-189 mg/dLVery High LDL: greater than or equal to 190 mg/dL HDL Cholesterol 66 >40 mg/dL [facility] LABS Comment:Desirable HDL: great er than 40 mg/dL Note: This HDL assay may give artificially low results in patients with liver disease. Blood Venous blood specimen / Unknown 12/24/2023 12:56 PM EDT 12/24/2023 1:06 PM EDT us Sofia Art MD LAB BLOOD ORDERABLES Final Result Performing Organization Address City/[facility]/ZIP Co de Phone Number LABS [address] [place] [phone] [phone] * Hm Colonoscopy (04/04/2023) Colonoscopy Normal Normal Sherri Britton MD HEALTH MAINTENANCE Final Result from Last 3 Months or Most Recently Relevant to Health Maintenance Insurance [facility] STANDARD MEDICARE [facility] ST[facility] ADULT Care Teams Furniture Decals Inspector Relationship Specialty Start Date End Date Sofia Montalvo MD [address] [place] [phone] PCP - General Family Medicine 09/23/21
--- OUTSIDE RECORDS SUMMARY | 2025-01-30 13:26 | XMS_ITS | Encounter Summary ---
Author Organization [employer] Address [address] 7[address] [place] [address] Care Team Providers Care Mold Closer Helper Name Role Phone Sofia Montalvo MD Primary Care Provide r Reason for Visit * Reason Onset Date Comments Durable Medical Equipment 01/21/2025 Encounter Details Date Type Department Care Team ([facility] Contact Info) Description 01/21/2025 Telephone [facility] MEDICINE [address] [place], [place] [phone] Sofia Montalvo MD [address] [place], [place] [phone] Durable Medical Equipment Social History Tobacco Use [...] Description 02/26/2025 1:00 PM EDT Clinical Support [facility] [address] [place] [phone] Crystal Head RN 03/30/2025 10:30 AM EDT Telemedicine [facility] [address] [place] [phone] 06/22/2025 3:00 PM EDT Office Visit [facility] ADULT DENTAL [address] [place] [phone] Socorro Johnson documented as of this encounter Visit Diagnoses Not on filedocumented in this encounter Additional Health Concerns Assessment Noted Time PHQ-9 Depression Total Score: 15 025 1:50 PM EDT documented as of this encounter Care Teams Mold Closer Helper Relationship Specialty Start Date End Date Sofia Montalvo MD [address] [place] [phone] PCP - General Family Medicine 09/23/21 documented as of this encounter
--- OUTSIDE RECORDS SUMMARY | 2025-01-30 13:26 | XMS_ITS | Encounter Summary ---
Author Organization [employer] Address [address] 7[address] [place] [address] Care Team Providers Care Millinery Worker Name Role Phone Sofia Montalvo MD Primary Care Provide r Reason for Visit * Reason Comments Med Refill Encounter Details Date Type Department Care Team ([facility] st Contact Info) Description 11/28/2024 Refill [facility] MED[facility]INE [address] [place], [place] [phone] Sofia Montalvo MD 230 [place], [place] [phone] Chronic diarrhea Social History Tobacco Use Types [...] Description 02/26/2025 1:00 PM EDT Clinical Support [facility] [address] [place] [address] Crystal Head RN 03/30/2025 10:30 AM EDT Telemedicine [facility] [address] [place] [phone] 06/22/2025 3:00 PM EDT Office Visit [facility] ADULT DENTAL [address] [place] [phone] Socorro Johnson documented as of this encounter Visit Diagnoses Diagnosis Chronic diarrhea Diarrhea documented in this encounter Care Teams Millinery Worker Relationship Specialty Start Date End Date Sofia Montalvo MD [address] [place] [phone] PCP - General Family Medicine 09/23/21 documented as of this encounter
== END 2025-01-30 13:48 | disposition home or self-care (01) ==
LOC: HO.HGI 12:45
PROVIDERS: PCP Internal Medicine; Visit Provider Internal Medicine Gastroenterology
DX: K21.9 Gastro-esophageal reflux disease without esophagitis (principal); K57.10 Diverticulosis of small intestine without perforation or abscess without bleeding; R14.0 Abdominal distension (gaseous); R68.81 Early satiety; K59.09 Other constipation; K52.9 Noninfective gastroenteritis and colitis, unspecified; R10.9 Unspecified abdominal pain; R19.5 Other fecal abnormalities
CPT/HCPCS: 99214

== ENCOUNTER → 2025-01-30 12:44 | Outpatient (BNVA) | payer MEDICARE, MEDICAID, SELFPAY | PROVIDERS: PCP Internal Medicine; Visit Provider Internal Medicine Gastroenterology | DX: R10.9 Unspecified abdominal pain (principal); K21.9 Gastro-esophageal reflux disease without esophagitis; K57.10 Diverticulosis of small intestine without perforation or abscess without bleeding; R14.0 Abdominal distension (gaseous); R68.81 Early satiety; K59.09 Other constipation; K52.9 Noninfective gastroenteritis and colitis, unspecified; R19.5 Other fecal abnormalities | CPT/HCPCS: 99212 ==

== ENCOUNTER 2025-02-05 13:15 | Outpatient (AMB) | payer MEDICARE, MEDICAID, SELFPAY ==
--- NOTE | 2025-02-05 13:20 | MHC.OFFVIS ---
Vital Signs 02/05/25 13:33 Height 5 ft 2 in Weight 173 lb 8 oz BMI 31.7 BP 128/62 Blood Pressure Location Lt brachial Position Sitting Pulse 60 Pulse Source Pulse Oximeter Pulse Oximetry (%) 98 Oxygen Delivery Method Room Air Intake Visit Reasons: ITDD Refill Intake Note: Pain today 05/17 Proof Machine Operator Required: Yes Proof Machine Operator Language: Tajik Accompanied by: Son Allergies Seasonal Allergies Allergy (Mild, Verified 02/05/25 13:28) Unknown HPI Comments Details: Norma is here for replacement of the medication in the pain pump. she continues to complain on pain in her lower back and pain with difficulty with prolonged sitting and flexing forward. She will have new pump refill with addition of baclofen into her pump. Bridge bolus was explained to the patient. The side effects of the baclofen were explained to the patient. Patient expressed understanding. Her grandson who presented today with us helped us to maintain this conversation Tajik. [facility] Medical History (Updated 01/30/25 @ 13:05 by Sherri Britton MD) Osteopenia Asthma-COPD overlap syndrome Lumbar back pain with radiculopathy affecting right lower extremity Sacroiliac joint dysfunction of right side Sacroiliitis Disc degeneration, lumbar HPV test positive Chronic pain syndrome Acute blood loss anemia Hypertension Osteoarthritis of right knee [place] (dyspnea on exertion) Presence of dental bridge Sleep apnea Diabetes Overflow stress urinary incontinence in female Urge incontinence Primary osteoarthritis of hands, bilateral Loose right total knee arthroplasty Hx of carpal tunnel syndrome Pulmonary nodules GERD (gastroesophageal reflux disease) Surgical History Hx of tubal ligation H/O knee surgery History of orthopedic surgery History of arthroplasty of right knee History of pubovaginal sling Hx of colonoscopy History of carpal tunnel release of both wrists History of esophagogastroduodenoscopy (EGD) Previous back surgery History of endometrial ablation Hx of section Family History Mother Diabetes Arthritis Brother Cancer Paternal Aunt Breast cancer Social History Household Members: None Housing: Apartment Are you a primary career law clerk to a significant other at home: No Do you presently have visiting nurse or other home services: Yes (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) Alcohol intake: former Year quit: 2017 Comment: pt sleeping Patient Tobacco Use Status: Current everyday Tobacco user Tobacco use type: Cigarette Cigarettes Per Day: 5 Years Smoked: 2014 Second Hand Smoke Exposure: No Substance Use Type: Crack/Cocaine and Marijuana service: No Current occupational status: disabled Current occupation: rt handed Female Reproductive History Menstrual Age of Menarche: 11 Review of Systems Const All systems reviewed & are unremarkable except as noted in HPI and below ENT Reports Normal hearing present Neuro Reports Normal hearing present and Denies Abnormal speech present Physical Exam Vital Signs: Last Vital Signs Pulse 60 02/05/25 13:33 BP 128/62 02/05/25 13:33 Pulse Ox 98 02/05/25 13:33 Oxygen Delivery Method Room Air 02/05/25 13:33 BMI result Body Mass Index 31.7 Const General: no acute distress Nutritional Appearance: obese Orientation/consciousness: patient oriented x3 Limitations: language barrier HEENT Head: Yes atraumatic Mouth: no other ( thrush) Throat: No postnasal drainage Eyes General: appearance normal, both eyes and all related structures Sclerae: sclerae normal EOM: EOMs intact bilaterally Neck Neck: Yes normal visual inspection Lymphatic: no lymphadenopathy noted Chest Chest palpation & inspection: normal inspection of the chest Resp Effort & Inspection: normal respiratory effort, able to speak in complete sentences, normal respiratory pattern, no audible wheezes and no cough Auscultation: clear to auscultation bilaterally Cardio Jugular venous distension: no JVD GI Inspection: Yes normal to inspection and Yes distended Auscultation: normal bowel sounds Skin General skin exam: no rashes or lesions noted Neuro General: patient oriented x3, gait normal and moves all extremities Cranial nerves: Yes Normal hearing present Speech: No Abnormal speech present Extrem General: Yes normal to inspection Psych Appearance: grossly normal Mental Status: mental status grossly normal Results Reviewed Results Reviewed: MRI of the lumbar spine was obtained using routine sequences without contrast. FINDINGS: CORONAL ALIGNMENT: Mild lower thoracic dextrocurvature partially imaged, similar to previous exam with trace mid lumbar levocurvature, unchanged. SAGITTAL ALIGNMENT: 3.5 mm of grade 1 spondylolisthesis at L4-L5 has progressed from the previous study. Trace anterolisthesis at L3-L4 and L2-L3 are stable. Otherwise, normal lumbar lordotic curvature. LUMBOSACRAL JUNCTION: Transitional lumbosacral anatomy with lowest lumbar-like segment labeled as L5, which appears partially sacralized on the left. VERTEBRAL BODIES: Stable vertebral body heights. No interval compression fractures. DISC SPACES AND ENDPLATES: Ezekqzyo-nt-wxfcou intervertebral disc space height loss at L4-L5 has progressed from the previous exam, with progression of a central Schmorl's nodes, intradiscal degenerative changes and spondylosis. Lzka-dt-kpzsbmzz disc volume loss at L3-L4 slightly progressed with prominent anterolateral spondylosis deformans, similar to previous exam, and disc desiccation. Stable disc space heights at L1-L2 and L3-L4 with stable spondylosis and disc desiccation. Anterior marginal spondylosis at the T12-L1 is stable with disc desiccation. Stable Schmorl's nodes along the superior endplate of L1 and along the endplates centrally at T11-T12. SPINAL CANAL: Moderately prominent epidural fat throughout the lumbar canal appears somewhat more prominent than on the previous exam. BONE MARROW: There are type I degenerative marrow signal changes seen along the endplates at L3-L4 and L4-L5 progressed from the previous study. Minimal type I marrow signal changes along the endplates at L1-L2 and L2-L3 are also slightly more prominent. Note that there is susceptibility artifact related to a spinal stimulator device partially obscuring portions of the pelvis on the right. No focally suspicious marrow replacing process or bone marrow edema. CONUS MEDULLARIS: Terminates at L1. Morphology and signal is normal. INTRADURAL NERVE ROOTS: Within normal limits. L5-S1: Normal annular contour. Ntbd-hd-dstfljbl facet joint arthrosis, left more than right similar to previous exam. On current study, there is a 5 mm ovoid subligamentous synovial cyst along the medial aspect of the left facet joint, which is a new finding without neural impingement. No significant canal or neural foraminal stenosis. L4-L5: Unroofing of the posterior disc margin progressed from previous exam with superimposed concentric disc bulging progressed from previous study. Flattening the ventral dural sac is progressed. Ligamentum flavum thickening and severe bilateral facet joint arthrosis is slightly progressed. Prominent dorsal fat pad also appears slightly more prominent, now with gpwojmiq-dv-amizms central spinal canal stenosis with crowding of the intradural nerve roots progressed from previous study. Mild bilateral lateral recess stenosis progressed from previous exam without definite neural impingement. Jznd-mo-pnkaomqc bilateral neural foraminal stenosis slightly progressed, with disc bulging abutting the exiting L4 nerve roots bilaterally. L3-L4: Diffuse disc bulging is slightly progressed. Flattening of the ventral dural sac slightly progressed. Prominent dorsal fat pad progressed from previous exam with cdzdkdrl-au-brtfkv bilateral facet hypertrophic degenerative changes and interspinous ligament degeneration, similar to prior exam. There is moderate central spinal canal stenosis progressed from previous exam and there is moderate left and gpbk-xs-wmgfimsp right-sided neural foraminal stenosis minimally progressed on the left and stable on the right. L2-L3: There is disc bulging with a superimposed left-sided foraminal/extraforaminal disc protrusion, stable in appearance. Mild flattening of the dural sac is stable with stable prominent dorsal fat pad and moderate bilateral facet arthropathy. Mild canal stenosis is stable and there is a stable yjqd-jc-yuiayoji neural foraminal narrowing, right more than left. L1-L2: Concentric disc bulging with flattening of the dural sac is stable. Mild facet arthropathy is stable. There is susceptibility artifact in the dorsal epidural space similar to previous exam related to spinal stimulator leads entering at this level. No significant canal stenosis. Mild foraminal narrowing noted bilaterally without neural impingement, unchanged. T12-L1: Susceptibility artifact noted distorting the posterior dural sac related to spinal stimulator leads but no significant canal or neural foraminal stenosis on the sagittal T1-weighted images. Minor facet arthropathy noted bilaterally at this level. Spinal stimulator leads extending cephalad along the dorsal epidural space up to the level of the highest level imaged. PARAVERTEBRAL AND INCLUDED EXTRASPINAL SOFT TISSUES: There is posterior paraspinal and psoas muscle sarcopenia. Otherwise unremarkable. MR/MR lumbar spine wo con IMPRESSION: 1. Progression of grade 1 degenerative spondylolisthesis at L4-L5 with progression of disc bulging at this level and progression of posterior element hypertrophic degenerative changes, now with moderate to severe spinal canal stenosis with crowding of the intradural nerve roots progressed from previous exam and stable hezs-le-xvitltlb bilateral neural foraminal stenosis with disc bulging abutting the exiting L4 nerve roots bilaterally. 2. Stable disc bulging and left lateral foraminal/extraforaminal disc protrusion at L2-L3 with stable mild spinal canal stenosis and stable mnus-yy-zbalnepy neural foraminal narrowing, right more than left. Progression of disc bulging at L3-L4 and progression of the dorsal fat pad with moderate central spinal canal stenosis progressed from previous exam at this level. 3. Disc bulging and facet arthropathy L1-L2 is stable in appearance. 4. Multilevel bilateral facet joint arthrosis as described above, with progression of epidural fat at L3-L4 and L4-L5. Multilevel bilateral neural foraminal stenosis as detailed by level above. 5. Spinal stimulator leads as described above. 6. Paraspinal and psoas muscle sarcopenia. Assessment & Plan Assessment & Plan (1) Vertebrogenic low back pain: Code(s): M54.51 - Vertebrogenic low back pain Category: Medical Plan: (2) Lumbar back pain with radiculopathy affecting right lower extremity: Code(s): M54.16 - Radiculopathy, lumbar region Category: Medical (3) Sacroiliac joint dysfunction of right side: Code(s): M53.3 - Sacrococcygeal disorders, not elsewhere classified Category: Medical (4) Sacroiliitis: Code(s): M46.1 - Sacroiliitis, not elsewhere classified Category: Medical (5) Disc degeneration, lumbar: Code(s): M51.36 - Other intervertebral disc degeneration, lumbar region Category: Medical (6) Spondylosis of lumbar spine: Code(s): M47.816 - Spondylosis without myelopathy or radiculopathy, lumbar region Category: Medical (7) Chronic pain syndrome: Code(s): G89.4 - Chronic pain syndrome Category: Medical Plan: Intrathecal pump refill. THE PATIENT CAME TODAY IN THE office FOR THE CHANGE OF THE MEDICATION IN her PAIN PUMP. The name and date of were verified and informed consent was obtained for the procedure. ?The pump was interrogated and the residual amount of fluid was found to be 2.6 mL. SHE WAS POSITIONED prone on the bed AND THE AREA OF THE INTRATHECAL PUMP WAS PREPPED WITH CHLORAPREP. The fenestrated drape was sterilely applied over the area of the pump. Sterile gloves were worn and of the aspiration system was assembled containing 2 in 22 gauge noncoring needle, the needle was connected to extension tubing which was connected to the 20 cc sterile syringe. The pain pump was palpated under the skin in the patient's right buttock area. The needle was inserted through the skin and the central plug of the pain pump and fluid was aspirated. The clear fluid was going into the syringe the total amount of the fluid was 4.0 mL .. After that a new batch? of medication was obtained which was containing hydromorphone in concentration 4000 micro g/ml , baclofen 200 micro g and bupivacaine 40 mg per ml. The admixture was made in 20 cc syringe prepared by [facility] compounding pharmacy. The syringe was connected to the bacterial filter, and then connected to the extension tubing. After that the medication in the syringe was slowly instilled into the pump with aspirations at 15 and 5 cc fajardo.? The pump was reprogrammed with the doses of 193 micro g per day per day with corresponding dose of bupivacaine of the continuous medication , after 82 hours of bridge bolus she will be able to receive every 3 hours as previously the dose of hydromorphone which was increased today to 189.9 micro g of hydromorphone and 3.602 mg of bupivacaine on demand 5 times in 24 hour period. Total daily dose of baclofen at this time as 60 micro g. (8) Generalized osteoarthritis: Code(s): M15.9 - Polyosteoarthritis, unspecified Category: Medical Plan: The patient was instructed to report all the side effects of the baclofen, if nausea and vomiting would occur we will prescribe her Zofran. As of the weakness in bilateral lower extremities patient needs to consider waiting with time it will become better. (9) Edema of both lower extremities: Code(s): R60.0 - Localized edema Category: Medical (10) Abdominal pain: Code(s): R10.9 - Unspecified abdominal pain Category: Medical Plan Patient continues to complain on advanced pain in her lower back with radiation into bilateral lower extremities, she continues to complain on pain in flexing forward and prolonged sitting. Escalation of the opioid medications not result in pain improvement. the concentrate of the bupivacaine reached its maximum, therefore I decided to add A new medication-baclofen to her admixture. So next time she is here I will prepare for her mixture of hydromorphone 4 milligrams/mL bupivacaine 40 milligrams/mL and baclofen 200 micro g per mL in 20 mL of preservative-free normal saline. Dose of the on demand medication was decreased minimally less than 10% for the patient. Coding Level of Care Code Est Pt Level 3 (79415) Procedure Only Diagnoses Vertebrogenic low back pain M54.51 Lumbar back pain with radiculopathy affecting right lower extremity M54.16 Sacroiliac joint dysfunction of right side M53.3 Sacroiliitis M46.1 Disc degeneration, lumbar M51.36 Spondylosis of lumbar spine M47.816 Chronic pain syndrome G89.4 Generalized osteoarthritis M15.9 Edema of both lower extremities R60.0 Abdominal pain R10.9
[2025-02-05 13:33] VITALS: BP 128/62; PULSE 60; O2SAT 98; BMI 31.7
--- OUTSIDE RECORDS SUMMARY | 2025-02-05 15:42 | XMS_ITS | Encounter Summary ---
Author Organization [employer] Address [address] [place] [address] Care Team Providers Care Beverage Distiller Name Role Phone Sofia Montalvo MD Primary Care Provide r Reason for Visit * Reason Comments Med Refill Encounter Details Date Type Department Care Team ([facility] st Contact Info) Description 02/25/2024 Refill [facility] MED[facility] [address] [place], [place] [phone] Sofia Montalvo MD [address] [place], [place] [phone] Lumbar disc disease Social History Tobacco Use [...] Description 02/26/2025 1:00 PM EDT Clinical Support [facility] [address] [place] [phone] Crystal Head RN 03/30/2025 10:30 AM EDT Telemedicine [facility] [address] [place] [address] 06/22/2025 3:00 PM EDT Office Visit [facility] ADULT DENTAL [address] [place] [phone] Socorro Johnson documented as of this encounter Visit Diagnoses Diagnosis Lumbar disc disease Other and unspecified disc disorder of lumbar region documented in this encounter Care Teams Beverage Distiller Relationship Specialty Start Date End Date Sofia Montalvo MD [address] [place] [phone] PCP - General Family Medicine 09/23/21 documented as of this encounter
--- OUTSIDE RECORDS SUMMARY | 2025-02-05 15:42 | XMS_ITS | Encounter Summary ---
Author Organization [employer] Address [address] [place] [address] Care Team Providers Care Vp Clinical Name Role Phone Sofia Montalvo MD Primary Care Provide r Reason for Visit * Reason Comments Med Refill Encounter Details Date Type Department Care Team ([facility] st Contact Info) Description 02/18/2024 Refill [facility] [address] [place] [address], [place] [phone] Sofia Montalvo MD [address] [place], [place] [phone] Chronic diarrhea Social History Tobacco Use Types [...] Clinical Support [facility] [address] [place] [phone] Crystal Head RN 03/30/2025 10:30 AM EDT Telemedicine [facility] [address] [place] [phone] 06/22/2025 3:00 PM EDT Office Visit [facility] ADULT DENTAL [address] [place] [phone] Socorro Johnson documented as of this encounter Visit Diagnoses Diagnosis Chronic diarrhea Diarrhea documented in this encounter Care Teams Vp Clinical Relationship Specialty Start Date End Date Sofia Montalvo MD [address] [place] [phone] PCP - General Family Medicine 09/23/21 documented as of this encounter
--- OUTSIDE RECORDS SUMMARY | 2025-02-05 15:42 | XMS_ITS | Encounter Summary ---
Author Organization [employer] Address [address] [place] [address] Care Team Providers Care Matcher Leather Parts Name Role Phone Sofia Montalvo MD Primary Care Provide r Reason for Visit * Reason Onset Date Comments Durable Medical Equipment 12/31/2024 Encounter Details Date Type Department Care Team ([facility] Contact Info) Description 12/31/2024 Telephone [facility]INE [address] [place], [place] [phone] Sofia Montalvo MD [address] [place], [place] [phone] Durable Medical Equipment Social History Tobacco Use [...] * Telephone Encounter - Unique Espinosa - 02/03/2025 12:04 PM EDT Form was sent to [facility] on 01/21/2025. Confirmation was uploaded to Media. * Telephone Encounter - Ashly Fried - 01/23/2025 1:35 PM EDT Tc from pt stating [facility] need the Medical Necessity Form not the script. * Telephone Encounter - Art Paul - 01/21/2025 11:51 AM EDT Tc from pt stating that she got in Contact with [facility] and they stated that they need the Medical Necessity Form so that pt can Receive her Supplies. Pt has been trying for months to get DME. Contact pt at [phone] * Telephone Encounter - Karly Churchill MA - 01/21/2025 9:27 AM EDT DME for adult pull up (large) and disposable underpads signed and faxed to [facility] . Confirmation received and sent to scan. If patient calls to check status on above, please advise them to contact [facility] at [phone]. * Telephone Encounter - Unique Espinosa - 01/15/2025 11:27 AM EDT Form is currently pending with provider. * Telephone Encounter - Smitha Fournier - 01/15/2025 10:53 AM EDT Pt walked in very upset she is asking if theres any update. * Telephone Encounter - Ashly Fried - 01/13/2025 1:57 PM EDT Tc from pt SUPERVISOR ASSEMBLING requesting status of prior message. * Telephone Encounter - Karly Churchill MA - 01/12/2025 1:25 PM EDT DME for disposable adult pull up (large) and disposable underpads from [facility] received andis being processed. Placed on provider's desk for signature. * Telephone Encounter - Unique Espinosa - 01/07/2025 2:32 PM EDT Call was made to Iva Mendez will resend form to this writers attention [...] Description 02/26/2025 1:00 PM EDT Clinical Support [facility] MEDICINE [address] [place] [phone] Crystal Head RN 03/30/2025 10:30 AM EDT Telemedicine [facility] MED[facility]INE [address] [place] [address] 06/22/2025 3:00 PM EDT Office Visit [facility] ADULT DENTAL [address] [place] [phone] Socorro Johnson documented as of this encounter Visit Diagnoses Not on filedocumented in this encounter Additional Health Concerns Assessment Noted Time PHQ-9 Depression Total Score: 15 025 1:50 PM EDT documented as of this encounter Care Teams Matcher Leather Parts Relationship Specialty Start Date End Date Sofia Montalvo MD [address] [place] [address] PCP - General Family Medicine 09/23/21 documented as of this encounter
--- OUTSIDE RECORDS SUMMARY | 2025-02-05 15:42 | XMS_ITS | Encounter Summary ---
Author Organization [employer] Address [address] [place] [address] Care Team Providers Care Manager Msw Name Role Phone Sofia Montalvo MD Primary Care Provide r Reason for Visit * Reason Comments Med Refill Encounter Details Date Type Department Care Team ([facility] Contact Info) Description 09/29/2022 Refill [facility] [address] [place], [place] [phone] Mandie Burton ANP [address] [place], [place] [phone] Social History Tobacco Use Types Packs/Day Years [...] Upcoming Encounters Date Type Department Care Team ([facility] Contact Info) Description 02/26/2025 1:00 PM EDT Clinical Support [facility] MEDICINE [address] [place], [place] [phone] Crystal Head, MICHELLE 03/30/2025 10:30 AM EDT Telemedicine [facility] MEDICINE [address] [place] [address] 06/22/2025 3:00 PM EDT Office Visit [facility] ADULT DENTAL [address] [place] [address] Socorro Johnson documented as of this encounter Visit Diagnoses Not on filedocumented in this encounter Care Teams Manager Msw Relationship Specialty Start Date End Date Sofia Montalvo MD [address] [place] [phone] PCP - General Family Medicine 09/23/21 documented as of this encounter
--- OUTSIDE RECORDS SUMMARY | 2025-02-05 15:42 | XMS_ITS | Encounter Summary ---
Author Organization [employer] [facility] Address [address] [place] [address] Care Team Providers Care Wool Washing Machine Operator Name Role Phone Sofia Montalvo MD Primary Care Provide r Encounter Details Date Type Department Care Team (Latest Contact Info) Description 12/20/2020 Abstract [facility] CONVERSIONS Dental, Provider, DDS Social History Tobacco [...] 02/26/2025 1:00 PM EDT Clinical Support [facility] MEDICINE [address] [place] [phone] Crystal Head RN 03/30/2025 10:30 AM EDT Telemedicine [facility] MEDICINE [address] [place] [phone] 06/22/2025 3:00 PM EDT Office Visit [facility] ADULT DENTAL [address] [place] [phone] Socorro Johnson documented as of this encounter Visit Diagnoses Not on filedocumented in this encounter Care Teams Wool Washing Machine Operator Relationship Specialty Start Date End Date Sofia Montalvo MD [address] [place] [phone] PCP - General Family Medicine 09/23/21 documented as of this encounter
--- OUTSIDE RECORDS SUMMARY | 2025-02-05 15:42 | XMS_ITS | Encounter Summary ---
Author Organization [employer] Address [address] [facility] [address] [place] [address] Care Team Providers Care Character Artist Name Role Phone Sofia Montalvo MD Primary Care Provide r Encounter Details Date Type Department Care Team ([facility] st Contact Info) Description 03/13/2024 Telephone [facility] [address] [place], [place] [phone] Sofia Montalvo MD [address] [place], [place] [phone] Social History Tobacco Use Types Packs/Day Years [...] Description 02/26/2025 1:00 PM EDT Clinical Support [facility] [address] [place] [phone] Crystal Head RN 03/30/2025 10:30 AM EDT Telemedicine [facility] [address] [place] [phone] 06/22/2025 3:00 PM EDT Office Visit [facility] [address] [place] [phone] Socorro Johnson documented as of this encounter Visit Diagnoses Not on filedocumented in this encounter Care Teams Character Artist Relationship Specialty Start Date End Date Sofia Montalvo MD [address] [place] [phone] PCP - General Family Medicine 09/23/21 documented as of this encounter
--- OUTSIDE RECORDS SUMMARY | 2025-02-05 15:42 | XMS_ITS | Encounter Summary ---
Author Organization [employer] Address [address] [facility] [address] [place] [address] Care Team Providers Care Lease Administrator Name Role Phone Sofia Montalvo MD Primary Care Provide r Reason for Visit * Reason Comments Med Refill Encounter Details Date Type Department Care Team ([facility] st Contact Info) Description 11/28/2024 Refill [facility] [address] [place], [place] [phone] Sofia Montalvo MD [address] [place], [place] [phone] Chronic diarrhea Social History Tobacco Use Types [...] EDT Clinical Support [facility] [address] [place] [phone] Crystal Head RN 03/30/2025 10:30 AM EDT Telemedicine [facility] [address] [place] [phone] 06/22/2025 3:00 PM EDT Office Visit [facility] [address] [place] [phone] Socorro Johnson documented as of this encounter Visit Diagnoses Diagnosis Chronic diarrhea Diarrhea documented in this encounter Care Teams Lease Administrator Relationship Specialty Start Date End Date Sofia Montalvo MD [address] [place] [phone] PCP - General Family Medicine 09/23/21 documented as of this encounter
--- OUTSIDE RECORDS SUMMARY | 2025-02-05 15:42 | XMS_ITS | Encounter Summary ---
Author Organization [employer] Address [address] [facility] [address] [address] [facility] [address] [place] [address] Care Team Providers Care Training Coordinator Name Role Phone Sofia Montalvo MD Primary Care Provide r Encounter Details Date Type Department Care Team ([facility] st Contact Info) Description 12/09/[address] [facility] [address] [place], [place] [phone] Sofia Montalvo MD [address] [place], [place] [phone] Social History Tobacco Use Types Packs/Day Years [...] 02/26/2025 1:00 PM EDT Clinical Support [facility] [address] [place] [phone] Crystal Head RN 03/30/2025 10:30 AM EDT Telemedicine [facility] [address] [place] [phone] 06/22/2025 3:00 PM EDT Office Visit [facility] [address] [place] [phone] Socorro Johnson documented as of this encounter Visit Diagnoses Not on filedocumented in this encounter Care Teams Training Coordinator Relationship Specialty Start Date End Date Sofia Montalvo MD [address] [place] [phone] PCP - General Family Medicine 09/23/21 documented as of this encounter
--- OUTSIDE RECORDS SUMMARY | 2025-02-05 15:42 | XMS_ITS | Clinical Summary ---
Author Organization [employer] Address [address] [facility] [address] [place] [address] Care Team Providers Care Jewelry Sales Representative Name Role Phone Sofia Montalvo MD Primary [...] BEDTIME NEEDED FOR GAS 60 tablet 1 Active budesonide (Pulmicort) 0.5 MG/2ML nebulizer solution [...] A WEEK 120 mL 1 024 Active polycarbophil (Fibercon) 625 MG tabletIndicatio [...] mellitus with other specified complication, unspecified whether mcc insulin use (CMS/HCC) TAKE 1 TABLET BY [...] OTHER DAY IN THE MORNING 15 tablet 025 Active fluticasone (Flonase) 50 MCG/ACT nasal sprayIndication s:Chronic obstructive pulmonary disease, unspecified COPD type (CMS/HCC) USE 1 SPRAY IN EACH NOSTRIL TWICE DAILY 48 g 025 Active polyethylene glycol, PEG, 3350 (Miralax) 17 g packetIndicatio ns:Chronic idiopathic constipation Take 17 g by mouth Once per day. 30 packet 025 2025 Active docusate sodium (Colace) 100 MG capsuleIndicati ons:Chronic idiopathic constipation Take 1 capsule (100 mg) by mouth 2 times daily. 60 capsule 025 2025 Active senna (Senokot) 8.6 MG tabletIndicatio ns:Chronic idiopathic constipation Take 1 tablet (8.6 mg) by mouth at bedtime. 120 tablet 025 Active pantoprazole (Protonix) 40 MG EC tabletIndicatio ns:Gastroesopha geal reflux disease without esophagitis Take 1 tablet (40 mg) by mouth before breakfast and before evening meal. Do not crush, chew, or split. 60 tablet 025 2025 Active simvastatin (Zocor) 40 MG tabletIndicatio ns:Hypertriglyc eridemia TAKE 1 TABLET BY MOUTH AT BEDTIME 30 tablet 025 Active zolpidem (Ambien) 5 MG tabletIndicatio ns:Mixed [...] EVERYDAY AT NOON 90 tablet 3 Active acetaminophen (Tylenol 8 Hour) 650 MG ER tabletIndicatio ns:Lumbar disc disease Take 2 tablets (1,300 mg) by mouth every 8 (eight) hours if needed for mild pain. TAKE 1 TABLET BY MOUTH EVERY 8 HOURS NEEDED FOR MILD PAIN OR FOR MODERATE PAIN 60 tablet 3 Active cetirizine (ZyrTEC) 10 MG tablet TAKE 1 TABLET BY MOUTH EVERYDAY AT NOON 90 tablet 3 024 2024 Discontinued clonazePAM (KlonoPIN) 0.5 MG tablet Take 0.5 mg by mouth if needed in the morning and at bedtime for anxiety. 024 2024 Discontinued(A lternate therapy) acetaminophen (Tylenol 8 Hour) 650 MG ER tabletIndicatio ns:Lumbar disc disease Take 2 tablets (1,300 mg) by mouth every 8 (eight) hours if needed for mild pain. TAKE 1 TABLET BY MOUTH EVERY 8 HOURS NEEDED FOR MILD PAIN OR FOR MODERATE PAIN 60 tablet 3 024 2024 Discontinued(R eorder (will not trigger notification to Pharmacy)) doxepin (SINEquan) 50 MG capsule TAKE 1 [...] PM EDT): I will refer patient to teacher specialist for evaluation of face, arm and [...] Type Department Care Team Description 01/30/2025 Refill [facility] [address] [place], [place] [phone] Sofia Montalvo MD Lumbar disc disease 01/28/2025 Refill [facility] MEDICINE [address] [place] [address] Sofia Montalvo MD 01/23/2025 Telephone [facility] MEDICINE [address] [place] [address] Sofia Montalvo MD FYI 01/23/2025 Telephone [facility] MEDICINE [address] [place], [place] [phone] Sofia Montalvo MD Triage nurse 01/22/2025 2:30 PM EDT Office Visit [facility] ADULT DENTAL [address] [place] [address] Andrey De Jesus DDS Dental caries (Primary Dx) 01/21/2025 Telephone [facility] MEDICINE [address] [place] [address] Sofia Montalvo MD Durable Medical Equipment 01/14/[address] [address] Sofia Montalvo MD Mixed anxiety and depressive disorder 12/31/[address] [address] Sofia Montalvo MD Durable Medical Equipment 12/30/[address] [address] Sofia Montalvo MD telephone call 12/29/[address] [address] Sofia Montalvo MD stable lab letter 12/28/[address] [address] Sofia Montalvo MD Hypertriglyceridemia 12/25/2024 Orders Only GENERIC EXTERNAL DATA DEPARTMENT Provider, Generic External Data 12/24/[address] [address] Sofia Montalvo MD Durable Medical Equipment 12/19/[address] [address] Crystal Head, MICHELLE Schedule IRONER Initial appt 12/17/2024 11:00 AM EDT Office Visit [facility] AD[facility]ENT[facility] [address] [place] [phone] Socorro Johnson Dental calculus (Primary Dx); Dental plaque; Dental caries 12/15/2024 1:30 PM EDT Office Visit [address] [address] Sofia Montalvo MD Folliculitis (Primary Dx); Type 2 diabetes mellitus without complication, without long-term current use of insulin ([facility]); Pulmonary nodule; Atelectasis; Mixed anxiety and depressive disorder 12/12/2024 11:45 AM EST Office Visit [address] [address] [facility], BLOCK HANDLER Chronic idiopathic constipation (Primary Dx); Gastroesophageal reflux disease without esophagitis 12/12/2024 Travel 12/12/2024 Telephone [facility] MEDICINE [address] [place] [address] Sofia Montalvo MD Chart Prep 12/10/2024 Telephone [facility] MEDICINE [address] [place] [address] Sofia Montalvo MD Nurse Triage 12/09/2024 Telephone [facility] MED[facility]INE [address] [place] [address] Sofia Montalvo MD 12/09/2024 Refill [facility] [address] [place] [address] Sofia Montalvo MD 12/02/2024 Telephone [facility] MEDICINE [address] [place] [phone] Sofia Montalvo MD Durable Medical Equipment (DME Request: Incontinence Supplies) 12/01/2024 Refill [facility] MEDICINE [address] [place] [address] Sofia oMntalvo MD Chronic obstructive pulmonary disease, unspecified COPD type ([facility]) 11/29/2024 Refill [facility] MED[facility]INE [address] [place] [address] Sofia Montalvo MD Essential hypertension; Iron deficiency anemia, unspecified iron deficiency anemia type 11/28/2024 Refill [facility] MED[facility]INE [address] [place] [address] Sofia Montalvo MD Chronic diarrhea 11/27/2024 Refill [facility] [address] [place] [address] Sofia Montalvo MD Drug induced constipation 11/20/2024 Telephone [facility] MEDICINE [address] [place] [phone] Sofia Montalvo MD Results 11/20/2024 Orders Only [facility] MEDICINE [address] [place] [phone] Sofia Montalvo MD Pulmonary nodules (Primary Dx); Atelectasis 11/18/2024 Telephone [facility] MEDICINE [address] [place] [phone] Sofia Montalvo MD Nurse Triage from Last 3 Months Immunizations Name Administration [...] Clinical Support [facility] MEDICINE [address] [place] [address] Crystal Head RN 03/30/2025 10:30 AM EDT Telemedicine [facility] MEDICINE [address] [place] [address] 06/22/2025 3:00 PM EDT Office Visit [facility] ADULT DENTAL [address] [place] [address] Johnson [place] [facility] Maintenance Due Date Last Done Comments [...] Cervical Cancer Screening 07/30/2027 HPV/Cotest 07/30/2027 07/30/2024, 032 05/2022, 01/02/2022, Additional history exists Pap Smear 07/30/2027 07/30/2024, 0704/2023, 01/02/2022 Colonoscopy 04/04/2033 04/04/2023 Colorectal Cancer Screening [...] without long-term current use of insulin (CMS/HCC) BI MAMMOGRAM SCREENING TOMOSYNTHESIS BILATERAL Routine 09/12/2024 [...] EDT Narrative 01/19/2025 5:15 PM EDT ? [facility] ?[address] ?[place] [address] ? CT Scan Report ? Signed ? Patient: Norma Arcos ?MR#: M ?? [id number] ? : 1960 ?Acct:[id number] ? Age/Sex: 64 / F ?ADM Date: 01/19/25 ? Loc: HO.CT ? Attending Dr: Sherri Britton MD ? Ordering Physician: Sherri Britton MD ?? Date of Service: 01/19/25 ?? Procedure(s): CT enterography ?? Accession Number(s): [id number] ? cc: Sofia Montalvo MD; Sherri Britton MD ? Report Number: ?? [id number]: Total DLP = ??547.00 mGy-cm ?? EXAMINATION: [...] DD/ 1440 ? TD/TT: 01/19/25 1535 ? Wildlife Enforcement Major: MSM ? Procedure Note Reyna, Sofy - 01/19/[address] [address] [address] Scan Report Signed Patient: Norma ArcosMR#: M [id number] : 9Acct:[id number] Age/Sex: 64 / FADM Date: 01/19/25 Loc: HO.CT Attending Dr: Sherri Britton MD Ordering Physician: Sherri Britton MD Date of Service: 01/19/25 Procedure(s): CT enterography Accession Number(s): [id number] cc: Sofia Montalvo MD; Sherri Britton MD Report Number: [id number]: Total DLP = 547.00 mGy-cm EXAMINATION: CT [...] 01/19/25 1713 DD/ 1440 TD/TT: 01/19/25 1535 Wildlife Enforcement Major: DORIS [facility] External Provider IMG CT PROCEDURES Edited Result - Final * XR KUB and Upright 2 Views (12/25/2024 2:03 PM EDT) Anatomical Region Laterality Modality Radiographic Linette ging 12/25/2024 2:03 PM EDT Narrative 12/26/2024 8:49 AM EDT ? [facility] ?[address] ?[place] [address] ?XRay Report ? Signed ? Patient: Arcos,Norma Hall ?MR#: M ?? [id number] ? : 1960 ?Acct:[id number] ? Age/Sex: 64 / F ?ADM Date: 12/25/24 ? Loc: HO.XRAY ? Attending Dr: Sherri Britton MD ? Ordering Physician: Sherri Britton MD ?? Date of Service: 12/25/24 ?? Procedure(s): XR KUB ?? Accession Number(s): [id number] ? cc: Sofia Montalvo MD; Sherri Britton [...] DD/ 1403 ? TD/TT: 12/25/24 1418 ? Wildlife Enforcement Major: ? Procedure Note Sofy Orellana - 12/26/2024 [place] [address] [facility] [place] [address] XRay Report Signed Patient: Norma ArcosMR#: M [id number] : 9Acct:[id number] Age/Sex: 64 / FADM Date: 12/25/24 Loc: ROBYN Attending Dr: Sherri Britton MD Ordering Physician: Sherri Britton MD Date of Service: 12/25/24 Procedure(s): XR KUB Accession Number(s): [id number] cc: Sofia Montalvo MD; Sherri Britton MD [...] 12/26/24 0846 DD/ 1403 TD/TT: 12/25/24 1418 Wildlife Enforcement Major: [facility] External Provider IMG XR PROCEDURES Final Result * (ABNORMAL) CBC auto differential (12/25/2024 2:01 PM EDT) White Blood Count 7.9 4.8 - 10.8 X10*3/uL [facility] Red Blood Count 3.85(L) 4.20 - 5.50 X10*6/uL [facility] Hemoglobin 11.8(L) 12.0 - 16.0 g/dl [facility] Hematocrit 35.9(L) 37.0 - 47.0 % [facility] Mean Corpuscular Volume 93.2 80.0 - 98.0 fL [facility] Mean Corpuscular Hemoglobin 30.6 27.0 - 33.0 pg [facility] Mean Corpuscular HGB Conc 32.9 31.0 - 35.0 g/dl [facility] Red Cell Distribution Width 12.9 11.0 - 16.0 % [facility] Platelet Count 283 160 - 400 X10*3/uL [facility] Mean Platelet Volume 11.3 9.4 - 12.3 fL [facility] Neutrophils Percent Auto 62.7 45 - 73 % [facility] Imm Gran Pct Auto 0.4 0.0 - 0.4 % [facility] Lymphocytes Percent Auto 26.4 20 - 40 % [facility] Monocytes Percent Auto 7.1 2 - 11 % [facility] Eosinophils Percent Auto 2.8 0 - 4 % [facility] Basophils Percent Auto 0.6 0 - 2 % [facility] NRBC Pct Auto 0.0 0.0 - 0.2 /100WBC [facility] Neutrophils Absolute Auto 4.9 2.0 - 8.3 x10*3/uL [facility] Imm Gran Abs Auto 0.03 0.00 - 0.03 X10*3/uL [facility] Lymphocytes Absolute Auto 2.1 1.2 - 4.9 X10*3/uL [facility] Monocytes Absolute Auto 0.6 0.1 - 1.2 X10*3/uL [facility] Eosinophils Absolute Auto 0.2 0.0 - 0.4 X10*3/uL [facility] Basophils Absolute Auto 0.1 0.0 - 0.2 X10*3/uL [facility] NRBC Abs Auto 0.000 0.0 - 0.012 X10*3/uL [facility] Blood Venous blood specimen / Unknown 12/25/2024 2:01 PM EDT 12/25/2024 2:01 PM EDT [facility] BLOCK HANDLER LAB BLOOD ORDERABLES Final Re sult [facility] [address] [place] [address] [phone] * Lipase (12/25/2024 4:06 AM EDT) Pathologist [facility] Lipase 20 8 - 78 U/L [facility] 12/25/2024 4:06 AM EDT 12/25/2024 2:01 PM EDT us Generic External Data Provider LAB BLOOD ORDERAB LES Final Result Performing Organization Address City/[facility]/ZIP Co de Phone Number [facility] [address] [place] [address] [phone] * Ferritin (12/25/2024 4:06 AM EDT) Pathologist [facility] Ferritin 51 10 - 250 ng/mL [facility] 12/25/2024 4:06 AM EDT 12/25/2024 2:01 PM EDT us Generic External Data Provider LAB BLOOD ORDERAB LES Final Result Performing Organization Address City/[facility]/ZIP Co de Phone Number [facility] [address] [place] [address] [phone] * (ABNORMAL) Comprehensive Metabolic Panel (12/25/2024 4:06 AM EDT) [facility] Sodium 137 135 - 145 mmol/L [facility] Potassium 4.8 3.3 - 5.1 mmol/L [facility] Chloride 98 96 - 108 mmol/L [facility] Carbon Dioxide 34(H) 22 - 29 mmol/L [facility] Anion Gap 10(L) 12 - 20 [facility] Urea Nitrogen (BUN) 15 9 - 16 mg/dL [facility] Creatinine, Serum 0.95 0.5 - 1.4 mg/dL [facility] Estimated Glomerular Filt Rate 59 [facility] Comment:Chronic Kidney Disea se: Estimated GFR < 60 mL/min/1.55r6Mgndrp Kidney Disease: Estimated GFR < 15 mL/min/1.73m2 Glucose 90 60 - 115 mg/dL [facility] Calcium 10.1 8.4 - 10.2 mg/dL [facility] Bilirubin, Total 0.3 0.0 - 1.0 mg/dL [facility] Aspartate Amino Transferase 21 5 - 31 U/L [facility] Alanine Aminotransferase 14 0 - 31 U/L [facility] Total Protein 7.1 6.5 - 8.0 g/dL [facility] Albumin Level 3.9 3.5 - 5.0 g/dL [facility] Alkaline Phosphatase 57 39 - 117 U/L [facility] Blood Venous blood specimen / Unknown 12/25/2024 4:06 AM EDT 12/25/2024 2:01 PM EDT Result [facility] BLOCK HANDLER LAB BLOOD ORDERABLES Final Re sult Performing Organization Address City/State/[facility] [[email or web address]] Co de Phone Number [facility] [address] [place] [phone] * (ABNORMAL) POCT HGB A1C (12/15/2024 1:56 PM EDT) Pathologist [facility] Hemoglobin A1C 6.2(A) 4.0 - 6.0 % QC Media Lot # [id number] Lot# Expiration Date Blood 12/15/2024 1:56 PM EDT Result [facility] Sofia Art MD POINT OF CARE TEST EN TER/EDIT ORDERABLES Final Result * POCT Glucose (12/15/2024 1:55 PM EDT) Pathologist [facility] Glucose Blood, POC 151 60 - 200 mg/dL QC Media Lot # [id number] Lot# Expiration Date Blood Capillary blood specimen / Unknown 12/15/2024 1:55 PM EDT Sofia Art MD POINT OF CARE TEST EN TER/EDIT ORDERABLES Final Result * BI Mammogram Screening Tomosynthesis Bilateral (09/12/2024 1:15 PM EST) Anatomical Region Laterality Modality Breast Bilateral Mammography 09/12/2024 1:15 PM EST Narrative 09/18/2024 1:29 PM EST ? [facility] ? [address] ?[place] [address] ? Mammography Report ? Signed ? Patient: Norma Arcos ?MR#: M ?? [id number] ? : 1960 ?Acct:[id number] ? Age/Sex: 64 / F ?ADM Date: 09/12/24 ? Loc: HO.MAMMO ? Attending Dr: Aryan Estrella MD ? Ordering Physician: Aryan Estrella MD ?Results: 1Negativ ?? e ? Date of Service: 09/12/24 ?Follow Up: 1 Year From Orig ?? inal Mammogram ? Procedure(s): MM tomosynthesis screening BI ?? Accession Number(s): [id number] ? cc: Sofia Montalvo MD; Aryan Estrella [...] DD/ 1315 ? TD/TT: 09/12/24 1338 ? Wildlife Enforcement Major: ? Procedure Note Reyna, Image - 09/19/2024 [facility] [address] [place] [address] Mammography Report Signed Patient: Norma Arcos#: M [id number] : 9Acct:[id number] Age/Sex: 64 / FADM Date: 09/12/24 Loc: HO.MAMMO Attending Dr: Aryan Estrella MD Ordering Physician: Aryan Estrellaesults: 1Negativ e Date of Service: 09/12/24Follow Up: 1 Year From Orig inal Mammogram Procedure(s): MM tomosynthesis screening BI Accession Number(s): [id number] cc: Sofia Montalvo MD; Aryan Estrella MD [...] by: Chelsi Beverly DO 09/18/2024 01:25 PM [facility] Dictated By: Chelsi Beverly DO Signed By: <Electronically signed by Chelsi Beverly DO in OV> 09/18/24 1325 DD/ 1315 TD/TT: 09/12/24 1338 Wildlife Enforcement Major: [facility] External Provider IMG BI PROCEDURES Edited Result - Final * [facility] Pap and HPV mRNA E6/E7 with Reflex to HPV 16,18/45 (07/30/2024 2:16 PM EDT) HPV 16 RNA [facility] HPV 18/45 RNA [facility] HPV nRNA E6/E7 Not Detected Not Detected [facility] Comment:Methodology: Transcr iption-Mediated AmplificationThis assay detects E6/E7 viral messenger RNA (mRNA) from 14high-risk HPV types (16,18,31,33,35,39,45,51,52,56,58,59,66,68).Cervical sources are required for HPV testing.If a vaginal source from a patient who has had atotal hysterectomy with removal of cervix wassubmitted, please contact the testing laboratoryfor alternative testing options.For additional information, please refer tohttp://education.Focus/faq/TAO734v6(This link if provided for information/educational purposes only.)THIS TEST WAS PERFORMED AT:[employer] [address] [phone] ALBERT MD SOURCE: SEE NOTE [facility] Comment:Cervix Report Status: [facility] Clinical Information: SEE NOTE [facility] Comment:Postmenopausal LMP: SEE NOTE [facility] Comment:PM Prev. PAP: SEE NOTE [facility] Comment:2022 Prev. BX: SEE NOTE [facility] Comment:NONE GIVEN Statement Of Adequacy: SEE NOTE [facility] Comment:Satisfactory for hailey luation.Endocervical/transformation zone componentpresent. General Categorization: [facility] Interpretation/Result: SEE NOTE [facility] Comment:Cytology Results: Ne gative for intraepitheliallesion or malignancy. Cytology Comment SEE NOTE [facility] Comment:This Pap test has be en evaluated with computerassisted technology. Lumber Carrier Operator: SEE NOTE [facility] Comment:RXB, CT(ASCP)CT scre ening location: [address] [address] Review Lumber Carrier Operator: SEE NOTE [facility] Comment:KF, CT(ASCP)CT scree omari location: [address] [address] Pathologist [facility] PAP Infection [facility] See Note SEE NOTE [facility] Comment:EXPLANATORY NOTE:The Pap is a screening test for cervical cancer. It isnot a diagnostic test and is subject to false negativeand false positive results. It is most reliable when asatisfactory sample, regularly obtained, is submittedwith relevant clinical findings and history, and whenthe Pap result is evaluated along with historic andcurrent clinical information. 07/30/2024 2:16 PM EDT 07/30/2024 3:50 PM EDT Narrative [facility] - 08/04/2024 3:28 PM EDT SEE SCANNED RESULTS IN EMRWas previous PAP abnormal? YesIf PAP abnormal, please specify: Ascus,HPV +Clinical Information: routineCollection Date: 07/30/24igh risk HPV with 16 ?? 18 genotyping? YReflex HPV any abnormal diagnosis? YReflex HPV if ASCUS only? NHigh Risk HPV (any diagnosis)? YLMP: postmenopausalDate of previous PAP erformed by: : cervical Generic External Data Provider LAB PATHOLOGY ORD ERABLES Final Result Performing Organization Address [facility] [[email or web address]] Co de Phone Number [facility] [address] [place] [phone] * Creatinine, Random Urine (02/18/2024 1:28 PM EDT) Creatinine, Urine 35.20 mg/dL [facility] 02/18/2024 1:28 PM EDT 02/18/2024 1:35 PM EDT Generic External Data Provider LAB URINE ORDERAB LES Final Result Performing Organization Address [facility] de Phone Number [facility] [address] [place] [phone] * (ABNORMAL) Lipid Panel, Standard (12/24/2023 12:56 PM EDT) Triglycerides 344(H) <150 mg/dL [facility] Comment:Desirable Triglyceri de: less than 150 mg/dLBorderline High Triglyceride 150-199 mg/dLHigh Triglyceride: 200-499 mg/dLVery High Triglyceride: greater than or equal to 5OO mg/dL Cholesterol 186 <200 mg/dL [facility] Comment:Desirable Cholestero l: less than 200 mg/dLBorderline High Cholesterol: 200-239 mg/dLHigh Cholesterol: greater than 239 mg/dL LDL Cholesterol Calculated 52 <100 mg/dL [facility] Comment:Desirable LDL: less than 100 mg/dLNear Optimal/Above Optimal LDL: 110- 129 mg/dLBorderline High LDL: 130-159 mg/dLHigh LDL: 160-189 mg/dLVery High LDL: greater than or equal to 190 mg/dL HDL Cholesterol 66 >40 mg/dL [facility] Comment:Desirable HDL: great er than 40 mg/dL Note: This HDL assay may give artificially low results in patients with liver disease. Blood Venous blood specimen / Unknown 12/24/2023 12:56 PM EDT 12/24/2023 1:06 PM EDT us Sofia Art MD LAB BLOOD ORDERABLES Final Result [facility] [address] [place] [phone] * Colonoscopy (04/04/2023) Colonoscopy Normal Normal us Sherri Britton MD HEALTH MAINTENANCE Final Result from Last 3 Months or Most Recently Relevant to Health Maintenance [place] [id number] [facility] STANDARD MEDICARE [facility] ST[facility] ADULT Care Teams Jewelry Sales Representative Relationship Specialty Start Date End Date Sofia Montalvo MD [address] [place] [phone] PCP - General Family Medicine 09/23/21
--- OUTSIDE RECORDS SUMMARY | 2025-02-05 15:42 | XMS_ITS | Encounter Summary ---
Author Organization [employer] Address [address] [place] [address] Care Team Providers Care Food Mobile Driver Name Role Phone Sofia Montalvo MD Primary Care Provide r Encounter Details Date Type Department Care Team (Late Contact Info) Description 07/06/2023 Orders Only [facility] [address] [place] [phone] Provider, MD Alli Social History Tobacco Use [...] PM EDT Clinical Support [facility] [address] [place] [phone] Crystal Head RN 03/30/2025 10:30 AM EDT Telemedicine [facility] [address] [place] [phone] 06/22/2025 3:00 PM EDT Office Visit [facility] [address] [place] [phone] Socorro Johnson documented as of this encounter Procedures Procedure Name Priority Date/Time Associated Diagnosis Comments BIOPSY CERVIX Routine 04/19/2021 documented in this encounter Results * Biopsy cervix (04/19/2021) us Historical Provider MD IN CLINIC/BEDSIDE ORDERAB LES Final Result documented in this encounter Visit Diagnoses Not on filedocumented in this encounter Care Teams Food Mobile Driver Relationship Specialty Start Date End Date Sofia Montalvo MD [address] [place] [phone] PCP - General Family Medicine 09/23/21 documented as of this encounter
--- OUTSIDE RECORDS SUMMARY | 2025-02-05 15:42 | XMS_ITS | Encounter Summary ---
Author Organization [employer] Address [address] [facility] [address] 7[address] [place] [address] Care Team Providers Care Nephrology Nurse Name Role Phone Sofia Montalvo MD Primary Care Provide r Reason for Visit * Reason Onset Date Comments Durable Medical Equipment 01/21/2025 Encounter Details Date Type Department Care Team ([facility] Contact Info) Description 01/21/2025 Telephone [facility] [address] [place], [place] [phone] Sofia Montalvo MD [address] [place], [place] [phone] Durable Medical Equipment Social History Tobacco Use [...] Description 02/26/2025 1:00 PM EDT Clinical Support [facility] [address] [place] [address] [phone] Crystal Head RN 03/30/2025 10:30 AM EDT Telemedicine [facility] [address] [place] [phone] 06/22/2025 3:00 PM EDT Office Visit [facility] ADULT DENTAL [address] [place] [phone] Socorro Johnson documented as of this encounter Visit Diagnoses Not on filedocumented in this encounter Additional Health Concerns Assessment Noted Time PHQ-9 Depression Total Score: 15 025 1:50 PM EDT documented as of this encounter Care Teams Nephrology Nurse Relationship Specialty Start Date End Date Sofia Montalvo MD [address] [place] [phone] PCP - General Family Medicine 09/23/21 documented as of this encounter
--- OUTSIDE RECORDS SUMMARY | 2025-02-05 15:42 | XMS_ITS | Encounter Summary ---
Author Organization [employer] Address [address] [facility] [address] 7t [place] [address] Care Team Providers Care Screw Driver Operator Name Role Phone Sofia Montalvo MD Primary Care Provide r Encounter Details Date Type Department Care Team (Late Contact Info) Description 07/06/2023 Abstract [facility] [address] [place] [phone] Dayana Erazo Social History Tobacco Use Types [...] EDT Clinical Support [facility] [address] [place] [phone] Crystal Head RN 03/30/2025 10:30 AM EDT Telemedicine [facility] [address] [place] [phone] 06/22/2025 3:00 PM EDT Office Visit [facility] ADULT DENTAL [address] [place] [address] [phone] Socorro Johnson documented as of this encounter [...] on filedocumented in this encounter Care Teams Screw Driver Operator Relationship Specialty Start Date End Date Sofia Montalvo MD [address] [place] [address] [phone] PCP - General Family Medicine 09/23/21 documented as of this encounter
--- OUTSIDE RECORDS SUMMARY | 2025-02-05 15:42 | XMS_ITS | Encounter Summary ---
Author Organization [employer] [facility] Address [address] [facility] [address] 7t [place] [address] Care Team Providers Care Math Professor Name Role Phone Sofia Montalvo MD Primary Care Provide r Encounter Details Date Type Department Care Team (Latest Contact Info) Description 01/21/2019 Abstract [facility] Dental, Provider, DDS Social History [...] Care Team ( st Contact Info) Description 02/26/2025 1:00 PM EDT Clinical Support [facility] [address] [place] [phone] Crystal Head RN 03/30/2025 10:30 AM EDT Telemedicine [facility] [address] [place] [phone] 06/22/2025 3:00 PM EDT Office Visit [facility] ADULT DENTAL [address] [place] [phone] Socorro Johnson documented as of this encounter Visit Diagnoses Not on filedocumented in this encounter Care Teams Math Professor Relationship Specialty Start Date End Date Sofia Montalvo MD [address] [place] [address] [phone] PCP - General Family Medicine 09/23/21 documented as of this encounter
--- OUTSIDE RECORDS SUMMARY | 2025-02-05 15:42 | XMS_ITS | Encounter Summary ---
Author Organization [employer] Address [address] [facility] [address] 7t [place] [address] Care Team Providers Care Community Association Manager Name Role Phone Sofia Montalvo MD Primary Care Provide r Reason for Visit * Reason Comments Med Refill Encounter Details Date Type Department Care Team ([facility] Contact Info) Description 08/24/2023 Refill [facility] [address] [place], [place] [phone] Sofia Montalvo MD [address] [place], [place] [phone] Other chronic pain Social History Tobacco Use [...] 1:00 PM EDT Clinical Support [facility] [address] [place] [phone] Crystal Head RN 03/30/2025 10:30 AM EDT Telemedicine [facility] [address] [place] [address] [phone] 06/22/2025 3:00 PM EDT Office Visit [facility] ADULT DENTAL [address] [place] [address] [phone] Socorro Johnson documented as of this encounter Visit Diagnoses Diagnosis Other chronic pain documented in this encounter Care Teams Community Association Manager Relationship Specialty Start Date End Date Sofia Montalvo MD [address] [place] [phone] PCP - General Family Medicine 09/23/21 documented as of this encounter
--- OUTSIDE RECORDS SUMMARY | 2025-02-05 15:42 | XMS_ITS | Encounter Summary ---
Author Organization [employer] Address [address] [facility] [address] 7[address] [place] [address] Care Team Providers Care Magnetic Resonance Technologist Name Role Phone Sofia Montalvo MD Primary Care Provide r Encounter Details Date Type Department Care Team (Late Contact Info) Description 10/20/2022 Orders Only [facility] [address] [place] [address] [phone] Jasmyne Hutchison MD [address] [place] [address] [phone] Blurry vision (Primary Dx) Social History Tobacco [...] 1:00 PM EDT Clinical Support [facility] [address] [place] [address] [phone] Crystal Head RN 03/30/2025 10:30 AM EDT Telemedicine [address] [phone] 06/22/2025 3:00 PM EDT Office Visit [facility] ADULT DENTAL [address] [place] [phone] Socorro Johnson documented as of this encounter Visit Diagnoses Diagnosis Blurry vision- Primary Other specified visual disturbances documented in this encounter Care Teams Magnetic Resonance Technologist Relationship Specialty Start Date End Date Sofia Montalvo MD 230 [place] [phone] PCP - General Family Medicine 09/23/21 documented as of this encounter
--- OUTSIDE RECORDS SUMMARY | 2025-02-05 15:42 | XMS_ITS | Encounter Summary ---
Author Organization [employer] Address [address] [facility] [address] 7[address] [place] [address] Care Team Providers Care Transmission Supervisor Name Role Phone Sofia Montalvo MD Primary Care Provide r Reason for Visit * Reason Comments Med Refill Encounter Details Date Type Department Care Team ([facility] st Contact Info) Description 08/23/2023 Refill [facility] 230 [place], [place] [phone] Sofia Montalvo MD [address] [place], [place] [phone] Other chronic pain Social History Tobacco Use [...] [facility] [address] [place] [address] [phone] Crystal Head RN 03/30/2025 10:30 AM EDT Telemedicine [facility] [address] [place] [address] [phone] 06/22/2025 3:00 PM EDT Office Visit [facility] ADULT DENTAL [address] [place] [address] [phone] Socorro Johnson documented as of this encounter Visit Diagnoses Diagnosis Other chronic pain documented in this encounter Care Teams Transmission Supervisor Relationship Specialty Start Date End Date Sofia Montalvo MD [address] [place] [phone] PCP - General Family Medicine 09/23/21 documented as of this encounter
== END 2025-02-05 14:07 | disposition home or self-care (01) ==
LOC: HO.PMC 13:16
PROVIDERS: PCP Internal Medicine; Visit Provider Anesthesiology
DX: M54.51 Vertebrogenic low back pain (principal); M54.16 Radiculopathy, lumbar region; M53.3 Sacrococcygeal disorders, not elsewhere classified; M46.1 Sacroiliitis, not elsewhere classified; Z45.1 Encounter for adjustment and management of infusion pump; M51.369 Other intervertebral disc degeneration, lumbar region without mention of lumbar back pain or lower extremity pain; M47.816 Spondylosis without myelopathy or radiculopathy, lumbar region; G89.4 Chronic pain syndrome; M15.9 Polyosteoarthritis, unspecified; R60.0 Localized edema; R10.9 Unspecified abdominal pain
CPT/HCPCS: 62370; 99213

== ENCOUNTER → 2025-02-05 13:15 | Outpatient (BNVA) | payer MEDICARE, MEDICAID, SELFPAY | PROVIDERS: PCP Internal Medicine; Visit Provider Anesthesiology | DX: Z45.89 Encounter for adjustment and management of other implanted devices (principal); M54.51 Vertebrogenic low back pain; M54.16 Radiculopathy, lumbar region; M53.3 Sacrococcygeal disorders, not elsewhere classified; M46.1 Sacroiliitis, not elsewhere classified; M51.360 Other intervertebral disc degeneration, lumbar region with discogenic back pain only; M47.816 Spondylosis without myelopathy or radiculopathy, lumbar region; M15.9 Polyosteoarthritis, unspecified; R60.0 Localized edema; R10.9 Unspecified abdominal pain; G89.4 Chronic pain syndrome; Z79.891 Long term (current) use of opiate analgesic | CPT/HCPCS: 62370; 99212 ==

== ENCOUNTER 2025-02-23 12:02 | Day surgery (SDC) | payer MEDICARE, MEDICAID, SELFPAY ==
--- OUTSIDE RECORDS SUMMARY | 2025-01-30 14:51 | XMS_ITS | Encounter Summary ---
Author Organization [employer] Address [address] 7t [place] [address] Care Team Providers Care Auto Polisher Name Role Phone Sofia Montalvo MD Primary Care Provide r Reason for Visit * Reason Comments Med Refill Encounter Details Date Type Department Care Team ([facility] Contact Info) Description 09/29/2022 Refill [facility] [address] [place], [place] [phone] Mandie Burton ANP [address] [place], [place] [phone] Social History Tobacco Use Types Packs/Day Years [...] Upcoming Encounters Date Type Department Care Team ([facility] Contact Info) Description 02/26/2025 1:00 PM EDT Clinical Support [facility] MEDICINE [address] [place], [place] [phone] Crystal Head, MICHELLE 03/30/2025 10:30 AM EDT Telemedicine [facility] [address] [place] [address] 06/22/2025 3:00 PM EDT Office Visit [facility] ADULT DENTAL [address] [place] [address] Socorro Johnson documented as of this encounter Visit Diagnoses Not on filedocumented in this encounter Care Teams Auto Polisher Relationship Specialty Start Date End Date Sofia Montalvo MD [address] [place] [phone] PCP - General Family Medicine 09/23/21 documented as of this encounter
--- OUTSIDE RECORDS SUMMARY | 2025-01-30 14:51 | XMS_ITS | Encounter Summary ---
Author Organization [employer] Address [address] 7t [place] [address] Care Team Providers Care Fire Watcher Name Role Phone Sofia Montalvo MD Primary Care Provide r Encounter Details Date Type Department Care Team (Late Contact Info) Description 10/20/2022 Orders Only [facility] [address] [place] [address] [phone] Jasmyne Hutchison MD [address] [place] [address] [phone] Blurry vision (Primary Dx) Social History Tobacco [...] Description 02/26/2025 1:00 PM EDT Clinical Support [facility] [address] [place] [address] [phone] Crystal Head RN 03/30/2025 10:30 AM EDT Telemedicine [address] [phone] 06/22/2025 3:00 PM EDT Office Visit [facility] 230 [place] [address] Socorro Johnson documented as of this encounter Visit Diagnoses Diagnosis Blurry vision- Primary Other specified visual disturbances documented in this encounter Care Teams Fire Watcher Relationship Specialty Start Date End Date Sofia Montalvo MD 230 [place] [phone] PCP - General Family Medicine 09/23/21 documented as of this encounter
--- OUTSIDE RECORDS SUMMARY | 2025-01-30 14:51 | XMS_ITS | Encounter Summary ---
Author Organization [employer] [facility] Address [address] [place] [address] Care Team Providers Care President/[employer] Production & Live Experiences Name Role Phone Sofia Montalvo MD Primary Care Provide r Encounter Details Date Type Department Care Team (Latest Contact Info) Description 12/20/2020 Abstract [facility] CONVERSIONS Dental, Provider, DDS Social History [...] Description 02/26/2025 1:00 PM EDT Clinical Support [facility] MEDICINE [address] [place] [phone] Crystal Head RN 03/30/2025 10:30 AM EDT Telemedicine [facility] MED[facility]INE [address] [place] [address] 06/22/2025 3:00 PM EDT Office Visit [facility] ADULT DENTAL [address] [place] [phone] Socorro Johnson documented as of this encounter Visit Diagnoses Not on filedocumented in this encounter Care Teams President/[employer] Live Experiences Relationship Specialty Start Date End Date Sofia Montalvo MD [address] [place] [phone] PCP - General Family Medicine 09/23/21 documented as of this encounter
--- OUTSIDE RECORDS SUMMARY | 2025-01-30 14:51 | XMS_ITS | Encounter Summary ---
Author Organization [employer] Address [address] 7t [place] [address] Care Team Providers Care Vacuum Tank Tender Name Role Phone Sofia Montalvo MD Primary Care Provide r Encounter Details Date Type Department Care Team ([facility] st Contact Info) Description 03/13/2024 Telephone [facility] MEDICINE 230 [place], [place] [phone] Sofia Montalvo MD 230 [place], [place] [phone] Social History Tobacco Use Types Packs/Day Years Used Date Smoking Tobacco: Every Day Cigarettes 0.3 1 Passive Smoke Exposure: Current Smokeless Tobacco: Never Alcohol Use Standard Drinks/Week Comments Yes 0 (1 standard drink = 0.6 oz pur e alcohol) weekends Housing Stability Answer Date Recorded What is your housing situation today? I have josérbett landry 08/01/[address] you [...] Description 02/26/2025 1:00 PM EDT Clinical Support [facility] [address] [place] [phone] Crystal Head RN 03/30/2025 10:30 AM EDT Telemedicine [facility] [address] [place] [phone] 06/22/2025 3:00 PM EDT Office Visit [facility] ADULT DENTAL [address] [place] [phone] Socorro Johnson documented as of this encounter Visit Diagnoses Not on filedocumented in this encounter Care Teams Vacuum Tank Tender Relationship Specialty Start Date End Date Sofia Montalvo MD [address] [place] [phone] PCP - General Family Medicine 09/23/21 documented as of this encounter
--- OUTSIDE RECORDS SUMMARY | 2025-01-30 14:51 | XMS_ITS | Encounter Summary ---
Author Organization [employer] [facility] Address [address]t [place] [address] Care Team Providers Care Foreclosure Paralegal Name Role Phone Sofia Montalvo MD Primary Care Provide r Encounter Details Date Type Department Care Team (Latest Contact Info) Description 01/21/2019 Abstract [facility] CONVERSIONS Dental, Provider, DDS Social History Tobacco [...] Clinical Support [facility] MEDICINE [address] [place] [phone] Crystal Head RN 03/30/2025 10:30 AM EDT Telemedicine [facility] MEDICINE [address] [place] [phone] 06/22/2025 3:00 PM EDT Office Visit [facility] ADULT DENTAL [address] [place] [phone] Socorro Johnson documented as of this encounter Visit Diagnoses Not on filedocumented in this encounter Care Teams Foreclosure Paralegal Relationship Specialty Start Date End Date Sofia Montalvo MD [address] [place] [phone] PCP - General Family Medicine 09/23/21 documented as of this encounter
--- OUTSIDE RECORDS SUMMARY | 2025-01-30 14:51 | XMS_ITS | Encounter Summary ---
Author Organization [employer] Address [address] 7t [place] [address] Care Team Providers Care Data Capture Specialist Name Role Phone Sofia Montalvo MD Primary Care Provide r Reason for Visit * Reason Comments Med Refill Encounter Details Date Type Department Care Team ([facility] st Contact Info) Description 02/25/2024 Refill [facility] MEDICINE 230 [place], [place] [phone] Sofia Montalvo MD 230 [place], [place] [phone] Lumbar disc disease Social History Tobacco Use [...] 1:00 PM EDT Clinical Support [facility] MEDICINE [address] [place] [phone] Crystal Head RN 03/30/2025 10:30 AM EDT Telemedicine [facility] MEDICINE [address] [place] [phone] 06/22/2025 3:00 PM EDT Office Visit [facility] ADULT DENTAL [address] [place] [phone] Socorro Johnson documented as of this encounter Visit Diagnoses Diagnosis Lumbar disc disease Other and unspecified disc disorder of lumbar region documented in this encounter Care Teams Data Capture Specialist Relationship Specialty Start Date End Date Sofia Montalvo MD [address] [place] [phone] PCP - General Family Medicine 09/23/21 documented as of this encounter
--- OUTSIDE RECORDS SUMMARY | 2025-01-30 14:51 | XMS_ITS | Encounter Summary ---
Author Organization [employer] Address [address] [place] [address] Care Team Providers Care Warehouse Puller Name Role Phone Sofia Montalvo MD Primary Care Provide r Reason for Visit * Reason Comments Med Refill Encounter Details Date Type Department Care Team ([facility] st Contact Info) Description 02/18/2024 Refill [facility] MEDICINE 230 [place], [place] [phone] Sofia Montalvo MD 230 [place], [place] [phone] Chronic diarrhea Social History Tobacco Use Types [...] Description 02/26/2025 1:00 PM EDT Clinical Support [facility] MEDICINE [address] [place] [phone] Crystal Head RN 03/30/2025 10:30 AM EDT Telemedicine [facility] MEDICINE [address] [place] [address] 06/22/2025 3:00 PM EDT Office Visit [facility] ADULT DENTAL [address] [place] [phone] Socorro Johnson documented as of this encounter Visit Diagnoses Diagnosis Chronic diarrhea Diarrhea documented in this encounter Care Teams Warehouse Puller Relationship Specialty Start Date End Date Sofia Montalvo MD [address] [place] [phone] PCP - General Family Medicine 09/23/21 documented as of this encounter
--- OUTSIDE RECORDS SUMMARY | 2025-01-30 14:52 | XMS_ITS | Encounter Summary ---
Author Organization [employer] Address [address] 7t [place] [address] Care Team Providers Care Collections Clerk Name Role Phone Sofia Montalvo MD Primary Care Provide r Reason for Visit * Reason Onset Date Comments Durable Medical Equipment 01/21/2025 Encounter Details Date Type Department Care Team ([facility] Contact Info) Description 01/21/2025 Telephone [facility] MEDICINE 230 [place], [place] [phone] Sofia Montalvo MD 230 [place], [place] [phone] Durable Medical Equipment Social History Tobacco Use [...] Description 02/26/2025 1:00 PM EDT Clinical Support [facility] MEDICINE [address] [place] [phone] Crystal Head RN 03/30/2025 10:30 AM EDT Telemedicine [facility] MEDICINE [address] [place] [address] 06/22/2025 3:00 PM EDT Office Visit [facility] ADULT DENTAL [address] [place] [phone] Socorro Johnson documented as of this encounter Visit Diagnoses Not on filedocumented in this encounter Additional Health Concerns Assessment Noted Time PHQ-9 Depression Total Score: 15 025 1:50 PM EDT documented as of this encounter Care Teams Collections Clerk Relationship Specialty Start Date End Date Sofia Montalvo MD [address] [place] [phone] PCP - General Family Medicine 09/23/21 documented as of this encounter
--- OUTSIDE RECORDS SUMMARY | 2025-01-30 14:52 | XMS_ITS | Encounter Summary ---
Author Organization [employer] Address [address] [place] [address] Care Team Providers Care Mother Baby Rn Name Role Phone Sofia Montalvo MD Primary Care Provide r Reason for Visit * Reason Comments Med Refill Encounter Details Date Type Department Care Team ([facility] st Contact Info) Description 01/28/2025 Refill [facility] MED[facility]INE [address] [place], [place] [phone] Sofia Montalvo MD [address] [place], [place] [phone] Social History Tobacco Use Types Packs/Day Years [...] Description 02/26/2025 1:00 PM EDT Clinical Support [facility] [address] [place] [phone] Crystal Head RN 03/30/2025 10:30 AM EDT Telemedicine [facility] [address] [place] [phone] 06/22/2025 3:00 PM EDT Office Visit [facility] ADULT DENTAL [address] [place] [phone] Socorro Johnson documented as of this encounter Visit Diagnoses Not on filedocumented in this encounter Additional Health Concerns Assessment Noted Time PHQ-9 Depression Total Score: 15 025 1:50 PM EDT documented as of this encounter Care Teams Mother Baby Rn Relationship Specialty Start Date End Date Sofia Montalvo MD [address] [place] [phone] PCP - General Family Medicine 09/23/21 documented as of this encounter
--- OUTSIDE RECORDS SUMMARY | 2025-01-30 14:52 | XMS_ITS | Encounter Summary ---
Author Organization [employer] Address [address] [place] [address] Care Team Providers Care Guard Captain Name Role Phone Sofia Montalvo MD Primary Care Provide r Reason for Visit * Reason Comments Med Refill Encounter Details Date Type Department Care Team ([facility] st Contact Info) Description 08/23/2023 Refill [facility] MED[facility]INE [address] [place], [place] [phone] Sofia Montalvo MD [address] [place], [place] [phone] Other chronic pain Social History Tobacco Use [...] Description 02/26/2025 1:00 PM EDT Clinical Support [facility] MEDICINE [address] [place] [phone] Crystal Head RN 03/30/2025 10:30 AM EDT Telemedicine [facility] MED[facility]INE [address] [place] [phone] 06/22/2025 3:00 PM EDT Office Visit [facility] ADULT DENTAL [address] [place] [phone] Socorro Johnson documented as of this encounter Visit Diagnoses Diagnosis Other chronic pain documented in this encounter Care Teams Guard Captain Relationship Specialty Start Date End Date Sofia Montalvo MD [address] [place] [phone] PCP - General Family Medicine 09/23/21 documented as of this encounter
--- OUTSIDE RECORDS SUMMARY | 2025-01-30 14:52 | XMS_ITS | Encounter Summary ---
Author Organization [email or web address] Address [address] [facility] [place] [address] Care Team Providers Care Senior Wind Turbine Technician Name Role Phone Sofia Montalvo MD Primary Care Provide r Encounter Details Date Type Department Care Team (Late Contact Info) Description 07/06/2023 Orders Only [facility]INE [address] [place] [phone] Provider, MD Alli Social History Tobacco Use [...] Description 02/26/2025 1:00 PM EDT Clinical Support [facility] [address] [place] [phone] Crystal Head RN 03/30/2025 10:30 AM EDT Telemedicine [facility] [address] [place] [phone] 06/22/2025 3:00 PM EDT Office Visit [facility] ADULT DENTAL [address] [place] [phone] Socorro Johnson documented as of this encounter Procedures Procedure Name Priority Date/Time Associated Diagnosis Comments BIOPSY CERVIX Routine 04/19/2021 documented in this encounter Results * Biopsy cervix (04/19/2021) us Historical Provider MD IN CLINIC/BEDSIDE ORDERAB LES Final Result documented in this encounter Visit Diagnoses Not on filedocumented in this encounter Care Teams Senior Wind Turbine Technician Relationship Specialty Start Date End Date Sofia Montalvo MD [address] [place] [phone] PCP - General Family Medicine 09/23/21 documented as of this encounter
--- OUTSIDE RECORDS SUMMARY | 2025-01-30 14:52 | XMS_ITS | Encounter Summary ---
Author Organization [employer] Address [address] [place] [address] Care Team Providers Care Grain Sampler Name Role Phone Sofia Montalvo MD Primary Care Provide r Encounter Details Date Type Department Care Team (Late Contact Info) Description 07/06/2023 Abstract [facility] MEDICINE [address] [place] [phone] Dayana Erazo Social History Tobacco Use Types [...] Description 02/26/2025 1:00 PM EDT Clinical Support [facility] [address] [place] [phone] Crystal Head RN 03/30/2025 10:30 AM EDT Telemedicine [facility] MED[facility] [address] [place] [phone] 06/22/2025 3:00 PM EDT Office Visit [facility] ADULT DENTAL [address] [place] [address] [phone] Socorro Johnson documented as of this encounter [...] lesion or malignancy, Other HPV Detected Alli Mratínez MD HEALTH MAINTENANCE Final Result * Biopsy cervix (06/07/2021) Historical Provider IN CLINIC/BEDSIDE ORDERAB LES Final Result documented in this encounter Visit Diagnoses Not on filedocumented in this encounter Care Teams Grain Sampler Relationship Specialty Start Date End Date Sofia Montalvo MD [address] [place] [phone] PCP - General Family Medicine 09/23/21 documented as of this encounter
--- OUTSIDE RECORDS SUMMARY | 2025-01-30 14:52 | XMS_ITS | Encounter Summary ---
Author Organization [employer] Address [address] [place] [address] Care Team Providers Care Solid Waste Manager Name Role Phone Sofia Montalvo MD Primary Care Provide r Reason for Visit * Reason Onset Date Comments Med Refill 01/30/2025 Encounter Details Date Type Department Care Team ([facility] st Contact Info) Description 01/30/2025 Refill [facility] [address] [place], [place] [phone] Sofia Montalvo MD [address] [place] [address] Lumbar disc disease Social History Tobacco Use [...] encounter Miscellaneous Notes * Telephone Encounter - Miroslava Velazquez LPN - 01/30/2025 1:38 PM EDT Last seen 12.15.24 documented in this encounter Plan of Treatment Upcoming Encounters Date Type Department Care Team (Late st Contact Info) Description 02/26/2025 1:00 PM EDT Clinical Support [facility] MEDICINE [address] [place] [phone] Crystal Head RN 03/30/2025 10:30 AM EDT Telemedicine [facility] MEDICINE [address] [place] [address] 06/22/2025 3:00 PM EDT Office Visit [facility] ADULT DENTAL [address] [place] [phone] Socorro Johnson documented as of this encounter Visit Diagnoses Diagnosis Lumbar disc disease Other and unspecified disc disorder of lumbar region documented in this encounter Additional Health Concerns Assessment Noted Time PHQ-9 Depression Total Score: 15 025 1:50 PM EDT documented as of this encounter Care Teams Solid Waste Manager Relationship Specialty Start Date End Date Sofia Montalvo MD [address] [place] [phone] PCP - General Family Medicine 09/23/21 documented as of this encounter
--- OUTSIDE RECORDS SUMMARY | 2025-01-30 14:52 | XMS_ITS | Encounter Summary ---
Author Organization [employer] Address [address] [place] [address] Care Team Providers Care Fleet Maintenance Foreman Name Role Phone Sofia Montalvo MD Primary Care Provide r Reason for Visit * Reason Comments Med Refill Encounter Details Date Type Department Care Team ([facility] st Contact Info) Description 11/28/2024 Refill [facility] MED[facility]INE [address] [place], [place] [phone] Sofia Montalvo MD [address] [place], [place] [phone] Chronic diarrhea Social History Tobacco Use Types [...] Description 02/26/2025 1:00 PM EDT Clinical Support [facility] [address] [place] [phone] Crystal Head RN 03/30/2025 10:30 AM EDT Telemedicine [facility] [address] [place] [address] [phone] 06/22/2025 3:00 PM EDT Office Visit [facility] ADULT DENTAL [address] [place] [phone] Socorro Johnson documented as of this encounter Visit Diagnoses Diagnosis Chronic diarrhea Diarrhea documented in this encounter Care Teams Fleet Maintenance Foreman Relationship Specialty Start Date End Date Sofia Montalvo MD [address] [place] [phone] PCP - General Family Medicine 09/23/21 documented as of this encounter
--- OUTSIDE RECORDS SUMMARY | 2025-01-30 14:52 | XMS_ITS | Clinical Summary ---
Author Organization [employer] Address [address] [place] [address] Care Team Providers Care Hob Machine Operator Name Role Phone Sofia Montalvo MD [...] mellitus with other specified complication, unspecified whether custodial insulin use (CMS/HCC) TAKE 1 TABLET BY [...] PM EDT): I will refer patient to payment specialist for evaluation of face, arm and [...] organization. Date Type Department Care Team Description 01/30/2025 Refill [facility] [address] [place], [place] [phone] Sofia Montalvo MD Lumbar disc disease 01/28/2025 Refill [facility] MEDICINE [address] [place] [address] Sofia Montalvo MD 01/23/2025 Telephone [facility] MED[facility]INE [address] [place] [address] Sofia Montalvo MD FYI 01/23/2025 Telephone [facility] MEDICINE [address] [place] [address] Sofia Montalvo MD Triage nurse 01/22/2025 2:30 PM EDT Office Visit [facility] ADULT DENTAL [address] [place] [address] Andrey De Jesus DDS Dental caries (Primary Dx) 01/21/2025 Telephone [facility] MEDICINE [address] [place] [address] Sofia Montalvo MD Durable Medical Equipment 01/14/2025 Refill [facility] MED[facility] [address] [place] [address] Sofia Montalvo MD Mixed anxiety and depressive disorder 12/31/2024 Telephone [facility] MEDICINE [address] [place] [address] Sofia Montalvo MD Durable Medical Equipment 12/30/[address] [address] Sofia Montalvo MD telephone call 12/29/[address] [address] Sofia Montalvo MD stable lab letter 12/28/[address] [address] Sofia Montalvo MD Hypertriglyceridemia 12/25/2024 Orders Only GENERIC EXTERNAL DATA DEPARTMENT Provider, Generic External Data 12/24/[address] [address] Sofia Montalvo MD Durable Medical Equipment 12/19/[address] [address] Crystal Head, MICHELLE Schedule BUTTER PRODUCTION SUPERVISOR Initial appt 12/17/2024 11:00 AM EDT Office Visit [facility] ADULT DENTAL [address] [place] [address] Socorro Johnson Dental calculus (Primary Dx); Dental plaque; Dental caries 12/15/2024 1:30 PM EDT Office Visit [address] [address] Sfoia Montalvo MD Folliculitis (Primary Dx); Type 2 diabetes mellitus without complication, without long-term current use of insulin ([facility]); Pulmonary nodule; Atelectasis; Mixed anxiety and depressive disorder 12/12/2024 11:45 AM EST Office Visit [address] [address] Chyna Carter FNP Chronic idiopathic constipation (Primary Dx); Gastroesophageal reflux disease without esophagitis 12/12/2024 Travel 12/12/[address] [address] Sofia Montalvo MD Chart Prep 12/10/[address] [address] Sofia Montalvo MD Nurse Triage 12/09/2024 Telephone [facility] MEDICINE [address] [place] [address] Sofia Montalvo MD 12/09/2024 Refill [facility] [address] [place] [address] Sofia Montalvo MD 12/02/2024 Telephone [facility]IC[facility] [address] [place] [address] Sofia Montalvo MD Durable Medical Equipment (DME Request: Incontinence Supplies) 12/01/2024 Refill [facility] [address] [place] [address] Sofia Montalvo MD Chronic obstructive pulmonary disease, unspecified COPD type ([facility]) 11/29/2024 Refill [facility]INE [address] [place] [address] Sofia Montalvo MD Essential hypertension; Iron deficiency anemia, unspecified iron deficiency anemia type 11/28/2024 Refill [facility] [address] [place] [address] Sofia Montalvo MD Chronic diarrhea 11/27/2024 Refill [facility] [address] [place] [address] Sofia Montalvo MD Drug induced constipation 11/20/2024 Telephone [facility] MEDICINE [address] [place] [address] Sofia Montalvo MD Results 11/20/2024 Orders Only C MEDICINE [address] [place] [address] Sofia Montalvo MD Pulmonary nodules (Primary Dx); Atelectasis 11/18/2024 Telephone [facility] MEDICINE [address] [place] [address] Sofia Montalvo MD Nurse Triage 11/05/2024 Orders Only [facility] External Provider, [facility] 11/02/2024 Refill C MEDICINE [address] [place] [address] Sofia Montalvo MD Essential hypertension from Last [...] Description 02/26/2025 1:00 PM EDT Clinical Support [address] [address] Crystal Head RN 03/30/2025 10:30 AM EDT Telemedicine [facility] MEDICINE [address] [place] [address] 06/22/2025 3:00 PM EDT Office Visit [facility] ADULT DENTAL [address] [place] [address] Socorro Johnson Health Maintenance Due Date Last [...] Screening 01/27/2026 01/27/2025 Eye Exam 09/09/2026 09/09/2024, 12/0 12/2023, 09/09/2024, Additional history exists Cervical Cancer [...] EDT Narrative 01/19/2025 5:15 PM EDT ? [facility] ?[address] ?[place] [address] ? CT Scan Report ? Signed ? Patient: Norma Arcos ?MR#: M ?? [id number] ? : 1960 ?Acct:[id number] ? Age/Sex: 64 / F ?ADM Date: 01/19/25 ? Loc: HO.CT ? Attending Dr: Sherri Britton MD ? Ordering Physician: Sherri Britton MD ?? Date of Service: 01/19/25 ?? Procedure(s): CT enterography ?? Accession Number(s): [id number] ? cc: Sofia Montalvo MD; Sherri Britton MD ? Report Number: ?? [id number]: Total DLP = ??547.00 mGy-cm ?? EXAMINATION: [...] 05:13 PM EDT RP ? Dictated By: ?Gen Gamino MD ? Signed By: ?<Electronically signed by Gen Gamino MD in OV> ?01/19/25 1713 ? DD/ 1440 ? TD/TT: 01/19/25 1535 ? Die Set Up Worker: MSM ? Procedure Note Reyna, Sofy - 01/19/[address] [place] [address] [address] Scan Report Signed Patient: Norma ArcosMR#: M [id number] : 9Acct:[id number] Age/Sex: 64 / FADM Date: 01/19/25 Loc: HO.CT Attending Dr: Sherri Britton MD Ordering Physician: Sherri Britton MD Date of Service: 01/19/25 Procedure(s): CT enterography Accession Number(s): [id number] cc: Sofia Montalvo MD; Sherri Britton MD Report Number: [id number]: Total DLP = 547.00 mGy-cm EXAMINATION: CT [...] 01/19/25 1713 DD/ 1440 TD/TT: 01/19/25 1535 Die Set Up Worker: DORIS [facility] External Provider IMG CT PROCEDURES Edited Result - Final * XR KUB and Upright 2 Views (12/25/2024 2:03 PM EDT) Anatomical Region Laterality Modality Radiographic Linette ging 12/25/2024 2:03 PM EDT Narrative 12/26/2024 8:49 AM EDT ? [facility] ?[address] ?[place] [address] ?XRay Report ? Signed ? Patient: Norma Arcos ?MR#: M ?? [id number] ? : 1960 ?Acct:[id number] ? Age/Sex: 64 / F ?ADM Date: 12/25/24 ? Loc: HO.XRAY ? Attending Dr: Sherri Britton MD ? Ordering Physician: Sherri Britton MD ?? Date of Service: 12/25/24 ?? Procedure(s): XR KUB ?? Accession Number(s): [id number] ? cc: Sofia Montalvo MD; Sherri Britton [...] DD/ 1403 ? TD/TT: 12/25/24 1418 ? Die Set Up Worker: ? Procedure Note Sofy Orellana - 12/26/2024 [place] [address] [facility] [address] XRay Report Signed Patient: Norma Arcos#: M [id number] : 9Acct:[id number] Age/Sex: 64 / FADM Date: 12/25/24 Loc: ROBYN Attending Dr: Sherri Britton MD Ordering Physician: Sherri Britton MD Date of Service: 12/25/24 Procedure(s): XR KUB Accession Number(s): [id number] cc: Sofia Montalvo MD; Sherri Britton MD [...] 12/26/24 0846 DD/ 1403 TD/TT: 12/25/24 1418 Die Set Up Worker: [facility] External Provider IMG XR PROCEDURES Final Result * (ABNORMAL) CBC auto differential (12/25/2024 2:01 PM EDT) White Blood Count 7.9 4.8 - 10.8 X10*3/uL [facility] Red Blood Count 3.85(L) 4.20 - 5.50 X10*6/uL [facility] Hemoglobin 11.8(L) 12.0 - 16.0 g/dl [facility] Hematocrit 35.9(L) 37.0 - 47.0 % [facility] Mean Corpuscular Volume 93.2 80.0 - 98.0 fL [facility] Mean Corpuscular Hemoglobin 30.6 27.0 - 33.0 pg [facility] Mean Corpuscular HGB Conc 32.9 31.0 - 35.0 g/dl [facility] Red Cell Distribution Width 12.9 11.0 - 16.0 % [facility] Platelet Count 283 160 - 400 X10*3/uL [facility] Mean Platelet Volume 11.3 9.4 - 12.3 fL [facility] Neutrophils Percent Auto 62.7 45 - 73 % [facility] Imm Gran Pct Auto 0.4 0.0 - 0.4 % [facility] Lymphocytes Percent Auto 26.4 20 - 40 % [facility] Monocytes Percent Auto 7.1 2 - 11 % [facility] Eosinophils Percent Auto 2.8 0 - 4 % [facility] Basophils Percent Auto 0.6 0 - 2 % [facility] NRBC Pct Auto 0.0 0.0 - 0.2 /100WBC [facility] Neutrophils Absolute Auto 4.9 2.0 - 8.3 x10*3/uL [facility] Imm Gran Abs Auto 0.03 0.00 - 0.03 X10*3/uL [facility] Lymphocytes Absolute Auto 2.1 1.2 - 4.9 X10*3/uL [facility] Monocytes Absolute Auto 0.6 0.1 - 1.2 X10*3/uL [facility] Eosinophils Absolute Auto 0.2 0.0 - 0.4 X10*3/uL [facility] Basophils Absolute Auto 0.1 0.0 - 0.2 X10*3/uL [facility] NRBC Abs Auto 0.000 0.0 - 0.012 X10*3/uL [facility] Blood Venous blood specimen / Unknown 12/25/2024 2:01 PM EDT 12/25/2024 2:01 PM EDT [facility] PAINTER SET LAB BLOOD ORDERABLES Final Re sult [facility] [address] [place] [address] [phone] * Lipase (12/25/2024 4:06 AM EDT) Pathologist [facility] Lipase 20 8 - 78 U/L [facility] 12/25/2024 4:06 AM EDT 12/25/2024 2:01 PM EDT us Generic External Data Provider LAB BLOOD ORDERAB LES Final Result Performing Organization Address City/[facility]/ZIP Co de Phone Number [facility] [address] [place] [address] [phone] * Ferritin (12/25/2024 4:06 AM EDT) Pathologist [facility] Ferritin 51 10 - 250 ng/mL [facility] 12/25/2024 4:06 AM EDT 12/25/2024 2:01 PM EDT us Generic External Data Provider LAB BLOOD ORDERAB LES Final Result Performing Organization Address City/[facility]/ZIP Co de Phone Number [facility] [address] [place] [address] [phone] * (ABNORMAL) Comprehensive Metabolic Panel (12/25/2024 4:06 AM EDT) [facility] Sodium 137 135 - 145 mmol/L [facility] Potassium 4.8 3.3 - 5.1 mmol/L [facility] Chloride 98 96 - 108 mmol/L [facility] Carbon Dioxide 34(H) 22 - 29 mmol/L [facility] Anion Gap 10(L) 12 - 20 [facility] Urea Nitrogen (BUN) 15 9 - 16 mg/dL [facility] Creatinine, Serum 0.95 0.5 - 1.4 mg/dL [facility] Estimated Glomerular Filt Rate 59 [facility] Comment:Chronic Kidney Disea se: Estimated GFR < 60 mL/min/1.28g4Fzrhci Kidney Disease: Estimated GFR < 15 mL/min/1.73m2 Glucose 90 60 - 115 mg/dL [facility] Calcium 10.1 8.4 - 10.2 mg/dL [facility] Bilirubin, Total 0.3 0.0 - 1.0 mg/dL [facility] Aspartate Amino Transferase 21 5 - 31 U/L [facility] Alanine Aminotransferase 14 0 - 31 U/L [facility] Total Protein 7.1 6.5 - 8.0 g/dL [facility] Albumin Level 3.9 3.5 - 5.0 g/dL [facility] Alkaline Phosphatase 57 39 - 117 U/L [facility] Blood Venous blood specimen / Unknown 12/25/2024 4:06 AM EDT 12/25/2024 2:01 PM EDT Result [facility] PAINTER SET LAB BLOOD ORDERABLES Final Re sult Performing Organization Address City/State/[facility] Co de Phone Number [facility] [address] [place] [phone] * (ABNORMAL) POCT HGB A1C (12/15/2024 1:56 PM EDT) Pathologist [facility] Hemoglobin A1C 6.2(A) 4.0 - 6.0 % QC Media Lot # [id number] Lot# Expiration Date Blood 12/15/2024 1:56 PM EDT Result [facility] Sofia Art MD POINT OF CARE TEST EN TER/EDIT ORDERABLES Final Result * POCT Glucose (12/15/2024 1:55 PM EDT) Glucose Blood, POC 151 60 - 200 mg/dL QC Media Lot # [id number] Lot# Expiration Date Blood Capillary blood specimen / Unknown 12/15/2024 1:55 PM EDT Result [facility] Sofia Rajputman MD POINT OF CARE TEST EN TER/EDIT ORDERABLES Final Result * CT Abdomen Pelvis w/o Contrast (11/05/2024 3:18 PM EST) Anatomical Region Laterality Modality Body, Pelvis, Abdomen Computed T omography 11/05/2024 3:18 PM EST Narrative 11/05/2024 4:02 PM EST ? [facility] ?[address] ?[place] [address] ? CT Scan Report ? Signed ? Patient: Norma Arcos ?MR#: M ?? [id number] ? : 1960 ?Acct:[id number] ? Age/Sex: 64 / F ?ADM Date: 11/05/24 ? Loc: HO.CT ? Attending Dr: Luis Enrique Rees MD ? Ordering Physician: Luis Enrique Rees MD ?? Date of Service: 11/05/24 ?? Procedure(s): CT abdomen pelvis wo IV con ?? Accession Number(s): [id number] ? cc: Sofia Montalvo MD; Luis Enrique Rees MD ? Report Number: ?? [id number]: Total DLP = ??584.00 mGy-cm ?? EXAMINATION: [...] DD/ 1518 ? TD/TT: 11/05/24 1530 ? Die Set Up Worker: MSM ? Procedure Note Dondontater, Image - 11/05/[address] [place] [address] [address] Scan Report Signed Patient: Norma ArcosMR#: M [id number] : 9Acct:[id number] Age/Sex: 64 / FADM Date: 11/05/24 Loc: HO.CT Attending Dr: Luis Enrique Rees MD Ordering Physician: Luis Enrique Rees MD Date of Service: 11/05/24 Procedure(s): CT abdomen pelvis wo IV con Accession Number(s): [id number] cc: Sofia Montalvo MD; Luis Enrique Rees MD Report Number: [id number]: Total DLP = 584.00 mGy-cm EXAMINATION: CT [...] 11/05/24 1559 DD/ 1518 TD/TT: 11/05/24 1530 Die Set Up Worker: DORIS [facility] External Provider IMG CT PROCEDURES Edited Result - Final * BI Mammogram Screening Tomosynthesis Bilateral (09/12/2024 1:15 PM EST) Anatomical Region Laterality Modality Breast Bilateral Mammography 09/12/2024 1:15 PM EST Narrative 09/18/2024 1:29 PM EST ? [facility] ? [address] ?[place] [address] ? Mammography Report ? Signed ? Patient: Arcos,Norma Isabel ?MR#: M ?? [id number] ? : 1960 ?Acct:[id number] ? Age/Sex: 64 / F ?ADM Date: 09/12/24 ? Loc: HO.MAMMO ? Attending Dr: Aryan Estrella MD ? Ordering Physician: Aryan Estrella MD ?Results: 1Negativ ?? e ? Date of Service: 09/12/24 ?Follow Up: 1 Year From Orig ?? inal Mammogram ? Procedure(s): MM tomosynthesis screening BI ?? Accession Number(s): [id number] ? cc: Sofia Montalvo MD; Aryan Estrella [...] DD/ 1315 ? TD/TT: 09/12/24 1338 ? Die Set Up Worker: ? Procedure Note Dondontater, Image - 09/19/2024 [place] [facility] [address] [place] [address] Mammography Report Signed Patient: Norma ArcosMR#: M [id number] : 9Acct:[id number] Age/Sex: 64 / FADM Date: 09/12/24 Loc: HO.MAMMO Attending Dr: Aryan Estrella MD Ordering Physician: Aryan Estrella MDResults: 1Negativ e Date of Service: 09/12/24Follow Up: 1 Year From Orig inal Mammogram Procedure(s): MM tomosynthesis screening BI Accession Number(s): [id number] cc: Sofia Montalvo MD; Aryan Estrella MD [...] 09/18/24 1325 DD/ 1315 TD/TT: 09/12/24 1338 Die Set Up Worker: [facility] External Provider IMG BI PROCEDURES Edited Result - Final * ThinPrep Imaging Pap and HPV mRNA E6/E7 with Reflex to HPV 16,18/45 (07/30/2024 2:16 PM EDT) HPV 16 RNA [facility] HPV 18/45 RNA [facility] HPV nRNA E6/E7 Not Detected Not Detected [facility] Comment:Methodology: Transcr iption-Mediated AmplificationThis assay detects E6/E7 viral messenger RNA (mRNA) from 14high-risk HPV types (16,18,31,33,35,39,45,51,52,56,58,59,66,68).Cervical sources are required for HPV testing.If a vaginal source from a patient who has had atotal hysterectomy with removal of cervix wassubmitted, please contact the testing laboratoryfor alternative testing options.For additional information, please refer tohttp://education.imgfave/faq/ZSF603l7(This link if provided for information/educational purposes only.)THIS TEST WAS PERFORMED AT:[employer] [place] [phone] ALBERT MD SOURCE: SEE NOTE [facility] Comment:Cervix Report Status: [facility] Clinical Information: SEE NOTE [facility] Comment:Postmenopausal LMP: SEE NOTE [facility] Comment:PM Prev. PAP: SEE NOTE [facility] Comment:2023 Prev. BX: SEE NOTE [facility] Comment:NONE GIVEN Statement Of Adequacy: SEE NOTE [facility] Comment:Satisfactory for hailey luation.Endocervical/transformation zone componentpresent. General Categorization: [facility] Interpretation/Result: SEE NOTE [facility] Comment:Cytology Results: Ne gative for intraepitheliallesion or malignancy. Cytology Comment SEE NOTE [facility] Comment:This Pap test has be en evaluated with computerassisted technology. Ux Designer: SEE NOTE [facility] Comment:RXB, CT(ASCP)CT scre ening location: [address] [address] Review Ux Designer: SEE NOTE [facility] Comment:KF, CT(ASCP)CT scree omari location: [place] [address] Pathologist [facility] PAP Infection [facility] See Note SEE NOTE [facility] Comment:EXPLANATORY NOTE:The Pap is a screening test for cervical cancer. It isnot a diagnostic test and is subject to false negativeand false positive results. It is most reliable when asatisfactory sample, regularly obtained, is submittedwith relevant clinical findings and history, and whenthe Pap result is evaluated along with historic andcurrent clinical information. 07/30/2024 2:16 PM EDT 07/30/2024 3:50 PM EDT Narrative [facility] - 08/04/2024 3:28 PM EDT [...] Provider LAB PATHOLOGY ORD ERABLES Final Result [facility] [address] [place] [address] [phone] * Creatinine, Random Urine (02/18/2024 1:28 PM EDT) Creatinine, Urine 35.20 mg/dL [facility] 02/18/2024 1:28 PM EDT 02/18/2024 1:35 PM EDT us Generic External Data Provider LAB URINE ORDERAB LES Final Result Performing Organization Address [facility]/ZIP Co de Phone Number [facility] [address] [place] [address] [phone] * (ABNORMAL) Lipid Panel, Standard (12/24/2023 12:56 PM EDT) Triglycerides 344(H) <150 mg/dL [facility] Comment:Desirable Triglyceri de: less than 150 mg/dLBorderline High Triglyceride 150-199 mg/dLHigh Triglyceride: 200-499 mg/dLVery High Triglyceride: greater than or equal to 5OO mg/dL Cholesterol 186 <200 mg/dL [facility] Comment:Desirable Cholestero l: less than 200 mg/dLBorderline High Cholesterol: 200-239 mg/dLHigh Cholesterol: greater than 239 mg/dL LDL Cholesterol Calculated 52 <100 mg/dL [facility] Comment:Desirable LDL: less than 100 mg/dLNear Optimal/Above Optimal LDL: 110- 129 mg/dLBorderline High LDL: 130-159 mg/dLHigh LDL: 160-189 mg/dLVery High LDL: greater than or equal to 190 mg/dL HDL Cholesterol 66 >40 mg/dL [facility] Comment:Desirable HDL: great er than 40 mg/dL Note: This HDL assay may give artificially low results in patients with liver disease. Blood Venous blood specimen / Unknown 12/24/2023 12:56 PM EDT 12/24/2023 1:06 PM EDT us Sofia Art MD LAB BLOOD ORDERABLES Final Result [facility] [address] [place] [address] [phone] * Hm Colonoscopy (04/04/2023) Colonoscopy Normal Normal us Sherri Britton MD HEALTH MAINTENANCE Final Result from Last 3 Months or Most Recently Relevant to Health Maintenance Insurance [facility] STANDARD [place] [phone] [facility] Care Teams Hob Machine Operator Relationship Specialty Start Date End Date Sofia Montalvo MD [address] [place] [phone] PCP - General Family Medicine 09/23/21
--- OUTSIDE RECORDS SUMMARY | 2025-01-30 14:52 | XMS_ITS | Encounter Summary ---
Author Organization [id number] Address [address] [place] [address] Care Team Providers Care Energy Trading Analyst Name Role Phone Sofia Montalvo MD Primary Care Provide r Encounter Details Date Type Department Care Team ([facility] st Contact Info) Description 12/09/2024 Telephone [facility] [address] [place], [place] [phone] Sofia Montalvo MD [address] [place], [place] [phone] Social History Tobacco Use Types Packs/Day Years [...] Description 02/26/2025 1:00 PM EDT Clinical Support [facility] [address] [place] [phone] Crystal Head RN 03/30/2025 10:30 AM EDT Telemedicine [facility] [address] [place] [phone] 06/22/2025 3:00 PM EDT Office Visit [facility] ADULT DENT[facility] [address] [place] [phone] Socorro Johnson documented as of this encounter Visit Diagnoses Not on filedocumented in this encounter Care Teams Energy Trading Analyst Relationship Specialty Start Date End Date Sofia Montalvo MD [address] [place] [phone] PCP - General Family Medicine 09/23/21 documented as of this encounter
--- OUTSIDE RECORDS SUMMARY | 2025-01-30 14:52 | XMS_ITS | Encounter Summary ---
Author Organization [employer] Address [address] [place] [address] Care Team Providers Care Mileage Clerk Name Role Phone Sofia Montalvo MD Primary Care Provide r Reason for Visit * Reason Comments Med Refill Encounter Details Date Type Department Care Team ([facility] st Contact Info) Description 08/24/2023 Refill [facility] [address] [place], [place] [phone] Sofia Montalvo MD [address] [place], [place] [phone] Other chronic pain Social History Tobacco Use [...] Clinical Support [facility] [address] [place] [phone] Crystal Head RN 03/30/2025 10:30 AM EDT Telemedicine [facility] [address] [place] [phone] 06/22/2025 3:00 PM EDT Office Visit [facility] ADULT DENTAL [address] [place] [phone] Socorro Johnson documented as of this encounter Visit Diagnoses Diagnosis Other chronic pain documented in this encounter Care Teams Mileage Clerk Relationship Specialty Start Date End Date Sofia Montalvo MD [address] [place] [phone] PCP - General Family Medicine 09/23/21 documented as of this encounter
[2025-02-19 16:38] VITALS: BMI 32.0
--- NOTE | 2025-02-20 10:11 | P.CONAN_ITS ---
Documented by User: Yolande Montemayor NP 02/20/25 10:12 HPI - Anesthesia Eval Consult details Narrative: 64yo F for Upper Endoscopy PMFSH Active Problems Active Problems: All Active Problems Elevated fecal calprotectin (Acute) Osteopenia (Acute) Abdominal pain (Acute) Urinary frequency (Acute) Hypertension (Acute) Melanonychia (Acute) Carpal tunnel syndrome of left wrist (Acute) Cubital tunnel syndrome on right (Acute) Carpal tunnel syndrome of right wrist (Acute) Proteinuria (Acute) CKD (chronic kidney disease) (Acute) Personal history of nicotine dependence (Acute) Asthma-COPD overlap syndrome (Acute) Chronic diarrhea (Acute) Vertebrogenic low back pain (Acute) ASCUS with positive high risk HPV cervical (Acute) Edema of both lower extremities (Acute) Generalized osteoarthritis (Acute) Varicose veins of right lower extremity with inflammation (Acute) Diarrhea (Acute) Neck pain (Acute) Epigastric pain (Acute) Duodenal diverticulum (Acute) Abdominal bloating (Acute) Colon cancer screening (Acute) Early satiety (Acute) Osteoarthritis of hands, bilateral (Acute) Trigger finger, left little finger (Acute) Osteoarthritis of fingers of both hands (Acute) Numbness and tingling in both hands (Acute) Status post revision of total knee replacement (Acute) Chronic constipation (Acute) Well woman exam (Acute) Spondylosis of lumbar spine (Acute) Anemia (Acute) HPV in female (Acute) Pre-procedural examination (Acute) Dysplasia of cervix, low grade (COLEMAN 1) (Acute) Bilateral hand numbness (Acute) Asthma (Acute) COPD (chronic obstructive pulmonary disease) (Acute) Pulmonary nodules (Acute) Acute bronchitis (Acute) Preop pulmonary/respiratory exam (Acute) Upper abdominal pain (Acute) Lumbar back pain with radiculopathy affecting right lower extremity (Acute) Sacroiliac joint dysfunction of right side (Acute) Sacroiliitis (Acute) Disc degeneration, lumbar (Acute) Chronic pain syndrome (Acute) Overflow stress urinary incontinence in female (Acute) Urge incontinence (Acute) Primary osteoarthritis of hands, bilateral (Acute) GERD (gastroesophageal reflux disease) (Acute) Past Medical History Medical History (Updated 02/20/25 @ 16:51 by Sherri Britton MD) Osteopenia Asthma-COPD overlap syndrome Lumbar back pain with radiculopathy affecting right lower extremity Sacroiliac joint dysfunction of right side Sacroiliitis Disc degeneration, lumbar HPV test positive Chronic pain syndrome Acute blood loss anemia Hypertension Osteoarthritis of right knee MENDENHALL (dyspnea on exertion) Presence of dental bridge Sleep apnea Diabetes Overflow stress urinary incontinence in female Urge incontinence Primary osteoarthritis of hands, bilateral Loose right total knee arthroplasty Hx of carpal tunnel syndrome Pulmonary nodules GERD (gastroesophageal reflux disease) Family History Family History Mother Diabetes Arthritis Brother Cancer Paternal Aunt Breast cancer Family history of problems with anesthesia: No Surgical History Surgical History Hx of tubal ligation H/O knee surgery History of orthopedic surgery History of arthroplasty of right knee History of pubovaginal sling Hx of colonoscopy History of carpal tunnel release of both wrists History of esophagogastroduodenoscopy (EGD) Previous back surgery History of endometrial ablation Hx of section History of Problems with Anesthesia: No Social History Social History Household Members: None Housing: Apartment Are you a primary assisted living care manager to a significant other at home: No Do you presently have visiting nurse or other home services: No Alcohol intake: former Year quit: 2017 Comment: pt sleeping Patient Tobacco Use Status: Current everyday Tobacco user Tobacco use type: Cigarette Cigarettes Per Day: 5 Years Smoked: 2014 Second Hand Smoke Exposure: No Use of substances other than those prescribed or required for medical reasons: No Substance Use Type: Crack/Cocaine and Marijuana Have you been hit, kicked, punched, or otherwise hurt by someone within the past year? If so, by whom?: No Are you DNR?: No Advance Directives: No Advance Directives Information Provided: Yes Patient : No service: No Current occupational status: disabled Current occupation: rt handed Meds Allergies Allergy/AdvReac Type Severity Reaction Status Date / Time Seasonal Allergies Allergy Mild Unknown Verified 02/23/25 12:27 Home Medications ?Medication ?Instructions ?Recorded ?Confirmed ?Last Taken ?Type cetirizine 10 mg tablet 10 mg PO DAILY 09/07/20 01/30/25 Unknown History cholecalciferol (vitamin D3) 50 50 mcg PO DAILY 09/07/20 01/30/25 Unknown History mcg (2,000 unit) tablet ferrous gluconate 240 mg (27 mg 240 mg PO Q OTHER DAY 09/07/20 01/30/25 03/20/23 History iron) tablet fluticasone propionate 50 1 spray intranasal BID 09/07/20 01/30/25 Unknown History mcg/actuation nasal spray,suspension losartan 100 mg tablet 100 mg PO DAILY 09/07/20 01/30/25 12/27/22 History zolpidem 10 mg tablet 10 mg PO BEDTIME PRN Insomnia 09/07/20 01/30/25 Unknown History mupirocin 2 % topical ointment 1 appl topical TID 03/10/21 01/30/25 Unknown History ascorbic acid (vitamin C) 250 mg 250 mg PO DAILY 05/22/22 01/30/25 Unknown History tablet acetaminophen 650 mg 650 mg PO DAILY 01/29/24 02/23/25 02/23/25 History tablet,extended release chlorthalidone 50 mg tablet 50 mg PO DAILY 01/29/24 01/30/25 Unknown History clonazepam 0.5 mg tablet 0.5 mg PO DAILY 01/29/24 01/30/25 Unknown History doxepin 50 mg capsule 50 mg PO BEDTIME 01/29/24 01/30/25 Unknown History escitalopram oxalate 10 mg tablet 10 mg PO DAILY 01/29/24 01/30/25 Unknown History metformin 500 mg tablet 500 mg PO BID 01/29/24 01/30/25 Unknown History simvastatin 40 mg tablet 40 mg PO BEDTIME 01/29/24 01/30/25 Unknown History atenolol 50 mg tablet 50 mg PO DAILY 07/04/24 01/30/25 Unknown History calcium polycarbophil 625 mg mg PO 09/11/24 01/30/25 Unknown History tablet (Fiber-Lax) pantoprazole 40 mg tablet,delayed 40 mg PO BID 09/11/24 01/30/25 Unknown History release Exam Height,Weight and Vital Signs: Height 5 ft 2 in Weight 79.379 kg Pertinent Lab Results Pertinent Lab Results: Laboratory Tests 12/25/24 12/25/24 04:06 14:01 WBC 7.9 Hgb 11.8 L Hct 35.9 L Plt Count 283 Sodium 137 Potassium 4.8 Chloride 98 Carbon Dioxide 34 H BUN 15 Creatinine 0.95 Assessment and Plan Assessment Anesthesia Assessment: Chart Reviewed Final Anesthetic Review Family History of Problems with Anesthesia: No History of Problems with Anesthesia: No Documented by User: Ruchi Linn MD 02/23/25 14:16 PMF Past Medical History Medical History (Updated 02/20/25 @ 16:51 by Sherri Britton MD) Osteopenia Asthma-COPD overlap syndrome Lumbar back pain with radiculopathy affecting right lower extremity Sacroiliac joint dysfunction of right side Sacroiliitis Disc degeneration, lumbar HPV test positive Chronic pain syndrome Acute blood loss anemia Hypertension Osteoarthritis of right knee MENDENHALL (dyspnea on exertion) Presence of dental bridge Sleep apnea Diabetes Overflow stress urinary incontinence in female Urge incontinence Primary osteoarthritis of hands, bilateral Loose right total knee arthroplasty Hx of carpal tunnel syndrome Pulmonary nodules GERD (gastroesophageal reflux disease) Family History Family History Mother Diabetes Arthritis Brother Cancer Paternal Aunt Breast cancer Surgical History Surgical History Hx of tubal ligation H/O knee surgery History of orthopedic surgery History of arthroplasty of right knee History of pubovaginal sling Hx of colonoscopy History of carpal tunnel release of both wrists History of esophagogastroduodenoscopy (EGD) Previous back surgery History of endometrial ablation Hx of section Social History Social History Household Members: None Housing: Apartment Are you a primary assisted living care manager to a significant other at home: No Do you presently have visiting nurse or other home services: No Alcohol intake: former Year quit: 2017 Comment: pt sleeping Patient Tobacco Use Status: Current everyday Tobacco user Tobacco use type: Cigarette Cigarettes Per Day: 5 Years Smoked: 2014 Second Hand Smoke Exposure: No Use of substances other than those prescribed or required for medical reasons: No Substance Use Type: Crack/Cocaine and Marijuana Have you been hit, kicked, punched, or otherwise hurt by someone within the past year? If so, by whom?: No Are you DNR?: No Advance Directives: No Advance Directives Information Provided: Yes Patient : No service: No Current occupational status: disabled Current occupation: rt handed Meds Allergies Allergy/AdvReac Type Severity Reaction Status Date / Time Seasonal Allergies Allergy Mild Unknown Verified 02/23/25 12:27 Home Medications ?Medication ?Instructions ?Recorded ?Confirmed ?Last Taken ?Type cetirizine 10 mg tablet 10 mg PO DAILY 09/07/20 01/30/25 Unknown History cholecalciferol (vitamin D3) 50 50 mcg PO DAILY 09/07/20 01/30/25 Unknown History mcg (2,000 unit) tablet ferrous gluconate 240 mg (27 mg 240 mg PO Q OTHER DAY 09/07/20 01/30/25 03/20/23 History iron) tablet fluticasone propionate 50 1 spray intranasal BID 09/07/20 01/30/25 Unknown History mcg/actuation nasal spray,suspension losartan 100 mg tablet 100 mg PO DAILY 09/07/20 01/30/25 12/27/22 History zolpidem 10 mg tablet 10 mg PO BEDTIME PRN Insomnia 09/07/20 01/30/25 Unknown History mupirocin 2 % topical ointment 1 appl topical TID 03/10/21 01/30/25 Unknown History ascorbic acid (vitamin C) 250 mg 250 mg PO DAILY 05/22/22 01/30/25 Unknown History tablet acetaminophen 650 mg 650 mg PO DAILY 01/29/24 02/23/25 02/23/25 History tablet,extended release chlorthalidone 50 mg tablet 50 mg PO DAILY 01/29/24 01/30/25 Unknown History clonazepam 0.5 mg tablet 0.5 mg PO DAILY 01/29/24 01/30/25 Unknown History doxepin 50 mg capsule 50 mg PO BEDTIME 01/29/24 01/30/25 Unknown History escitalopram oxalate 10 mg tablet 10 mg PO DAILY 01/29/24 01/30/25 Unknown History metformin 500 mg tablet 500 mg PO BID 01/29/24 01/30/25 Unknown History simvastatin 40 mg tablet 40 mg PO BEDTIME 01/29/24 01/30/25 Unknown History atenolol 50 mg tablet 50 mg PO DAILY 07/04/24 01/30/25 Unknown History calcium polycarbophil 625 mg mg PO 09/11/24 01/30/25 Unknown History tablet (Fiber-Lax) pantoprazole 40 mg tablet,delayed 40 mg PO BID 09/11/24 01/30/25 Unknown History release Exam Airway Mallampati Class: III TM Dist: >3cm Neck ROM: Full Denture: Upper Heart: rrr Lungs: cta Assessment and Plan Assessment Anesthesia Assessment: Anesthesia Plan Discussed Final Anesthetic Review NPO: Yes ASA Class: III Final Preanesthetic Review: No Changes in Pt Med Stat, Meds/Allgs Chart Reviewed and Consent Obtained/Reviewed Patient Risk: Intermediate Procedure Risk: Low Anesthetic Plan Anesthetic Plan: MAC: Disposition: Standard PACU
--- NOTE | 2025-02-23 12:35 | MHC.SHP ---
Pre-Procedural Eval Section A - 24 Hr Update-Section A only Date of Service: 02/23/25 The patient is an INPATIENT: No Changes since office visit: Yes Patient answered all questions; No Cold of Flu in the past 2 weeks, No New Medical Problems and No Changes in Medication The patient has been examined within 24 hours of the surgical procedure. The History & Physical has been completed within 30 days and I have reviewed it.: Yes Section B - Complete if H&P > 30 days Chief Complaint: gerd,abdominal pain, abnormal CTE Allergies: Allergies Allergy/AdvReac Type Severity Reaction Status Date / Time Seasonal Allergies Allergy Mild Unknown Verified 02/23/25 12:27 Plan Diagnosis/Plan: Unchanged I have reviewed the history and physical and performed a pertinent physical examination on my patient. No changes have occurred unless specified. Time Spent With Patient Time: Total time managing care of this patient today ____ minutes.
[2025-02-23 12:40] VITALS: BP 129/96; PULSE 53; RESP 14; TEMP 36.6; O2SAT 95; BMI 32.2
[2025-02-23] MEDS: Lactated Ringers 1,000 ML 100 ML IVCONT (12:43)
[2025-02-23 12:57] LABS: Glucose, Whole Blood 108 mg/dL (60-115)
[2025-02-23] MEDS: Albuterol Sulfate (0.083%) 2.5 MG/3 ML VIAL.NEB INHALE (14:17)
--- NOTE | 2025-02-23 15:13 | W.PM.OPN ---
Operative Note Operative Note Date of Service: 02/23/25 Narrative: FLEXIBLE TRANSORAL UPPER GASTROINTESTINAL ENDOSCOPY/SMALL BOWEL ENTEROSCOPY WITH BIOPSIES Pre-op diagnosis: GERD, Epigastric pain, Abnormal CT scan of duodenum/proximal jejunum Post-op diagnosis: GERD, Gastritis, normal small bowel Endoscopist:Maury Britton MD Anesthesia:?MAC UPPER ENDOSCOPY Consent: Indications for the procedure and potential complications of bleeding, perforation, reaction to medications and missed diagnosis were discussed with the patient and informed consent was obtained. Instrument: Olympus GIF H 190 mid size upper endoscope and variable stiffness pediatric colonoscope Monitoring: Vital signs and clinical assessment, continuous EKG monitoring, Pulse oximetry, Carbon Dioxide monitoring and blood pressure monitoring were done throughout the procedure. Procedure: The patient was placed in the left lateral decubitis position and pre-procedure medications were administered and a bite block was placed. The endoscope was inserted into the mouth and advanced under direct vision to the third part of duodenum. The upper endoscope was removed and a pediatric colonoscope was inserted into the mouth and advanced to the proximal jejunum. A careful inspection was made as the pediatric colonoscope was withdrawn including a retroflexed examination of the proximal stomach; Findings and interventions are described below. Findings: Larynx: Normal Esophagus: GE junction at 37 cms. Mildly tortuous esophagus without esophagitis or Salas's. Stomach: Moderate diffuse gastric erythema. Biopsies were obtained from the gastric body and antrum. Grade 2 flap valve on retroflexed examination of the cardia. Duodenum/proximal jejunum: Normal bulb and descending duodenum and proximal jejunum. Opening of duodenal diverticulum was not visualized - likely hidden among duodenal folds Intervention: Biopsies as noted above Impression and Post Procedure Diagnosis: Endoscopy Findings: ESOPHAGUS: Mildly tortuous esophagus without esophagitis or Salas's. STOMACH: Diffuse gastritis DUODENUM: Normal bulb and descending duodenum and proximal jejunum. Plan: Pt has a FU appointment on 05/28/[address] Britton. Above findings were reviewed with the patient and relevant handouts were given and the discharge area.
[2025-02-23 15:14] VITALS: BP 142/68; PULSE 63; RESP 16; TEMP 36.2; O2SAT 99
[2025-02-23 15:30] VITALS: BP 137/58; PULSE 56; RESP 16; O2SAT 99
[2025-02-23 15:45] VITALS: BP 128/67; PULSE 61; RESP 18; TEMP 36.6; O2SAT 97
== END 2025-02-23 15:55 | disposition home or self-care (01) ==
PROVIDERS: PCP Internal Medicine; Visit Provider Internal Medicine Gastroenterology
PROC: 0DJ08ZZ Inspection of Upper Intestinal Tract, Via Natural or Artificial Opening Endoscopic (ICD-10-PCS; CPT 43235; principal; 2025-02-23 13:00)
DX: R93.3 Abnormal findings on diagnostic imaging of other parts of digestive tract (principal); K22.89 Other specified disease of esophagus; K29.60 Other gastritis without bleeding; K21.9 Gastro-esophageal reflux disease without esophagitis; R14.0 Abdominal distension (gaseous); E11.9 Type 2 diabetes mellitus without complications; I10 Essential (primary) hypertension; D64.9 Anemia, unspecified; J45.909 Unspecified asthma, uncomplicated; G89.4 Chronic pain syndrome; F17.210 Nicotine dependence, cigarettes, uncomplicated; F12.90 Cannabis use, unspecified, uncomplicated; Z79.899 Other long term (current) drug therapy; Z79.84 Long term (current) use of oral hypoglycemic drugs; Z79.02 Long term (current) use of antithrombotics/antiplatelets
CPT/HCPCS: 43239; 82947; 88305; 88313; 88342; J2003; J2704

== ENCOUNTER → 2025-02-23 12:02 | Outpatient (BNV) | payer MEDICARE, MEDICAID, SELFPAY | PROVIDERS: PCP Internal Medicine; Visit Provider Internal Medicine Gastroenterology | DX: K21.9 Gastro-esophageal reflux disease without esophagitis (principal); K29.70 Gastritis, unspecified, without bleeding; K22.89 Other specified disease of esophagus | CPT/HCPCS: 43239 ==

== ENCOUNTER 2025-02-27 10:08 | Outpatient (REF) | payer MEDICARE, MEDICAID, SELFPAY ==
--- NOTE | ~2025-02-27 | US_ITS ---
CLINICAL HISTORY: R19.5 - Other fecal abnormalities --- Additional Notes or Special Instructions: Abd pain and bloating. US mesenteric arterial Duplex Comparison: None Findings: Celiac artery velocities supine are 233 cm/second with expiration, 183 cm/second with inspiration. Upright, these values are 209 cm/second and 166 cm/second, respectively. SMA proximal peak systolic velocity is 286 cm/second. EVELINA peak systolic velocities 148 cm/second. Splenic artery peak systolic velocity is 192 cm/second. Hepatic artery peak systolic velocities are 150 cm/second. 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 Clinically appropriate follow-up recommended. This document has been electronically signed by: Steven Gibson MD on 02/28/2025 08:43:26
--- OUTSIDE RECORDS SUMMARY | 2025-02-27 10:23 | XMS_ITS | Encounter Summary ---
Author Organization [employer] Address [address] [place] [address] Care Team Providers Care Larder Cook Name Role Phone Sofia Montalvo MD Primary Care Provide r Reason for Visit * Reason Comments Med Refill Encounter Details Date Type Department Care Team ([facility] Contact Info) Description 02/18/2024 Refill [facility] [address] [place], [place] [phone] Sofia Montalvo MD [address] [place], [place] [phone] Chronic diarrhea Social History Tobacco Use Types [...] Care Team (Late st Contact Info) Description 03/30/2025 10:30 AM EDT Medication Management [facility] [address] [place] [phone] 05/08/2025 1:15 PM EDT Office Visit [facility] [address] [place] [phone] Tyrell Madrigal MD [address] [place] [phone] 06/22/2025 3:00 PM EDT Office Visit [facility] ADULT DENTAL [address] [place] [phone] Socorro Johnson documented as of this encounter Visit Diagnoses Diagnosis Chronic diarrhea Diarrhea documented in this encounter Care Teams Larder Cook Relationship Specialty Start Date End Date Sofia Montalvo MD [address] [place] [address] [phone] PCP - General Family Medicine 09/23/21 documented as of this encounter
== END 2025-02-27 10:09 | disposition home or self-care (01) ==
LOC: HO.HMGCX 10:08
PROVIDERS: PCP Internal Medicine; Visit Provider Internal Medicine Gastroenterology
DX: R14.0 Abdominal distension (gaseous) (principal); R19.5 Other fecal abnormalities; R10.9 Unspecified abdominal pain
CPT/HCPCS: 93976

== ENCOUNTER → 2025-02-27 10:23 | Outpatient (BNV) | payer MEDICARE, MEDICAID, SELFPAY | PROVIDERS: PCP Internal Medicine; Visit Provider Specialist | DX: I70.1 Atherosclerosis of renal artery (principal) | CPT/HCPCS: 93976 ==

== ENCOUNTER 2025-03-17 13:05 | Outpatient (AMB) | payer MEDICARE, MEDICAID, SELFPAY ==
--- NOTE | 2025-03-17 13:29 | MHC.OFFVIS ---
Vital Signs 03/17/25 13:32 Height 5 ft 2 in Weight 176 lb BMI 32.2 BP 138/70 Blood Pressure Location Lt brachial Position Sitting Pulse 73 Pulse Source Pulse Oximeter Pulse Oximetry (%) 96 Oxygen Delivery Method Room Air Intake Visit Reasons: PIP pain and swelling Intake Note: Patient last seen by Doctor Juana Waite on 09/15/24. Presents today for PiP pain and swelling follow up. Patient states fingers are painful. Cargo Inspector Required: Yes Cargo Inspector Name: [id number] Accompanied by: Self / Same As Patient Allergies Seasonal Allergies Allergy (Mild, Verified 03/17/25 13:34) Unknown Medication List - Last Reconciled 03/17/25 by Juana Waite MD acetaminophen ER 650 mg PO DAILY albuterol sulfate 90 mcg/actuation (Ventolin HFA) 2 puffs PO Q4H PRN arformoterol (Brovana) 2 mL inhalation BID 30 days ascorbic acid (vitamin C) 250 mg PO DAILY atenolol 50 mg PO DAILY budesonide 0.5 mg (2 mL) inhalation BID 30 days calcium polycarbophil (Fiber-Lax) mg PO cetirizine 10 mg PO DAILY chlorthalidone 50 mg PO DAILY cholecalciferol (vitamin D3) 50 mcg PO DAILY clonazepam 0.5 mg PO DAILY dicyclomine 10 mg PO TID 30 days doxepin 50 mg PO BEDTIME escitalopram oxalate 10 mg PO DAILY ferrous gluconate 240 mg PO Q OTHER DAY fluticasone propionate 50 mcg/actuation 1 spray intranasal BID hydrocortisone 2.5% 1 appl WA BID-QID PRN 30 days ipratropium-albuterol 0.5 mg-3 mg(2.5 mg base)/3 mL 3 mL inhalation Q4-6H PRN 30 days losartan 100 mg PO DAILY lubiprostone (Amitiza) 16 mcg (2 x 8 mcg) PO BID 30 days metformin 500 mg PO BID mupirocin 2% 1 appl topical TID naloxone 4 mg/actuation 4 mg intranasal Q2M PRN 1 day pantoprazole 40 mg PO BID polyethylene glycol 3350 (Miralax) 17 grams PO DAILY 1 day pregabalin 150 mg PO BID 30 days simvastatin 40 mg PO BEDTIME zolpidem 10 mg PO BEDTIME PRN HPI Comments Details: Patient is a 64-year-old Beninese-speaking female with hypertension, asthma, depression, diabetes and hyperlipidemia who presents today for follow up of her hand osteoarthritis. Interval History: Patient last seen 09/15/2024 with me. At that time she was following up for her hand osteoarthritis complaining of 1st PIP, 3rd PIP and 5th PIP tenderness and pain. She received steroid injection to her 1st, 3rd and 5th PIP joints. Steroid injection improved her symptoms however she now is returning complaining of return of symptoms. Significant complains of polyarticular osteoarthritis including her back which she has a 2 spinal stimulators in 4, her knees and her hands. Rheumatologic History: Patient with polyarticular osteoarthritis involving multiple joints including the neck, hands, shoulders and knees. Had fusion of her 2nd and 3rd PIP joints Right total knee replacement Current Rheumatology Medication(s): [facility] Medical History (Updated 02/20/25 @ 16:51 by Sherri Britton MD) Osteopenia Asthma-COPD overlap syndrome Lumbar back pain with radiculopathy affecting right lower extremity Sacroiliac joint dysfunction of right side Sacroiliitis Disc degeneration, lumbar HPV test positive Chronic pain syndrome Acute blood loss anemia Hypertension Osteoarthritis of right knee MENDENHALL (dyspnea on exertion) Presence of dental bridge Sleep apnea Diabetes Overflow stress urinary incontinence in female Urge incontinence Primary osteoarthritis of hands, bilateral Loose right total knee arthroplasty Hx of carpal tunnel syndrome Pulmonary nodules GERD (gastroesophageal reflux disease) Surgical History Hx of tubal ligation H/O knee surgery History of orthopedic surgery History of arthroplasty of right knee History of pubovaginal sling Hx of colonoscopy History of carpal tunnel release of both wrists History of esophagogastroduodenoscopy (EGD) Previous back surgery History of endometrial ablation Hx of section Family History Mother Diabetes Arthritis Brother Cancer Paternal Aunt Breast cancer Social History Household Members: None Housing: Apartment Are you a primary career specialist to a significant other at home: No Do you presently have visiting nurse or other home services: No Alcohol intake: former Year quit: 2018 Patient Tobacco Use Status: Current everyday Tobacco user Tobacco use type: Cigarette Cigarettes Per Day: 5 Years Smoked: 2014 Second Hand Smoke Exposure: No Substance Use Type: Crack/Cocaine and Marijuana service: No Current occupational status: disabled Current occupation: rt handed Female Reproductive History Menstrual Age of Menarche: 11 Review of Systems Const Details: Review of Systems Constitutional: Denies fever, chills, weight loss ENT: Denies vision changes, eye pain or eye redness, dental caries, dry mouth GI: Denies nausea, vomiting, diarrhea, abdominal pain, change in BM Pulm: Denies SOB, MENDENHALL, hemoptysis, wheezing Cards: Denies chest pain, palpitations Skin: Denies Raynaud's, rash, nail changes, photosensitivity, BUSINESS EMPLOYMENT SPECIALIST: Denies headaches, weakness, paresthesias, recurrent falls MSK: as per HPI All other systems reviewed and are unremarkable except noted above Physical Exam Vital Signs: Last Vital Signs Pulse 73 03/17/25 13:32 BP 138/70 03/17/25 13:32 Pulse Ox 96 03/17/25 13:32 Oxygen Delivery Method Room Air 03/17/25 13:32 BMI result Body Mass Index 32.2 Physical Examination CONSTITUITIONAL Patient alert and cooperative. Well appearing and in no apparent painful distress HEENT Conjunctiva and sclera clear. ?Pupils equal round and reactive to light. ?No lymphadenopathy. ? CHEST/RESPIRATORY SYSTEM Normal respiratory effort and able to speak in complete sentences. ?Clear to auscultation bilaterally. ?No crackles, rales, rhonchi, wheezes heard. CARDIAC SYSTEM Regular rate and rhythm. ?S1 and S2 heard no murmurs. ?Radial pulses intact bilaterally MSK Hands: ? Unable to make a full fist of her right hand. Swelling and tenderness to palpation of the 1st PIP, 3rd PIP and 5th PIP joint. Heberden's nodes noted throughout bilateral hands. Left hand with Heberden's and Tanya's nodes but without tenderness to palpation of the PIP joints. Wrists: ?Full range of motion at the wrists without pain. ?No tenderness to palpation or synovitis noted to the wrists. Elbows: Full range of motion without pain. No tenderness, weakness, swelling, increased warmth or erythema. Shoulders: Full range of motion without pain. No tenderness, weakness, swelling, increased warmth or erythema. Hips: Full range of motion without pain. Hip bursa: No tenderness to palpation Knees: ?Full range of motion. ?No tenderness, swelling, increased warmth or erythema.?No effusion or crepitations Ankles: Full range of motion. ?No tenderness, swelling, increased warmth or erythema.? Feet: ?Negative squeeze test. ?No tenderness to palpation or swelling of the MTPs. Tender points:??No tenderness to palpation of the neck, shoulders, chest, elbows, hips, buttocks or knees. SKIN Skin intact without rashes. Office Procedures AMB Joint Injection/Aspiration Joint Injection/Aspiration Details: Procedure was explained to the patient and consent was obtained. ? The area of interest was identified and confirmed with patient. ?This was subsequently cleaned with chlorhexidine x3. ? The area was then anesthetized using ethyl chloride spray. 20 mg Kenalog was injected without issue. ?Minimal to no bleeding. ?Patient tolerated procedure. Primary Site: right thumb Prep: site was prepped using aseptic technique and ethochloride spray was applied Injected: 20 mg of, Kenalog and in the joint Procedure: The patient tolerated the procedure well Coding - Small Joint Procedure code (CPT) selection complete AMB Joint Injection/Aspiration Joint Injection/Aspiration Details: Procedure was explained to the patient and consent was obtained. ? The area of interest was identified and confirmed with patient. ?This was subsequently cleaned with chlorhexidine x3. ? The area was then anesthetized using ethyl chloride spray. 20 mg Kenalog was injected without issue. ?Minimal to no bleeding. ?Patient tolerated procedure. Primary Site: other (Right 3rd PIP) Prep: site was prepped using aseptic technique and ethochloride spray was applied Injected: 20 mg of and Kenalog Procedure: The patient tolerated the procedure well Coding - Small Joint Procedure code (CPT) selection complete AMB Joint Injection/Aspiration Joint Injection/Aspiration Details: Procedure was explained to the patient and consent was obtained. ? The area of interest was identified and confirmed with patient. ?This was subsequently cleaned with chlorhexidine x3. ? The area was then anesthetized using ethyl chloride spray. 20 mg Kenalog was injected without issue. ?Minimal to no bleeding. ?Patient tolerated procedure. Primary Site: other (Right 5th PIP) Prep: site was prepped using aseptic technique and ethochloride spray was applied Injected: 20 mg of, Kenalog and in the joint Procedure: The patient tolerated the procedure well Coding - Small Joint Procedure code (CPT) selection complete Office Meds Kenalog 40 mg/mL suspension for injection Performing Provider: Juana Waite MD [place] [facility] Administered by: Juana Waite MD on 03/17/25 16:09 Dose Route Admin Location Dispensed Lot Number Expiration Date [facility] System Consultant 20 mg intra-articular right thumb 1st PIP 1 mL [id number] 01/06/26 [address]-4 [employer] Kenalog 40 mg/mL suspension for injection Performing Provider: Juana Waite MD Performing [place] [facility] Administered by: Juana Waite MD on 03/17/25 16:12 Dose Route Admin Location Dispensed Lot Number Expiration Date [place] [employer] 20 mg intra-articular Right 3rd PIP 1 mL [id number] 01/06/26 [address]-8 [employer] Kenalog 40 mg/mL suspension for injection Performing Provider: Juana Waite MD Per[place] [facility] Administered by: Juana Waite MD on 03/17/25 16:13 Dose Route Admin Location Dispensed Lot Number Expiration Date [facility] System Consult[employer] 20 mg intra-articular Right 5th PIP 1 mL [id number] 01/06/26 [address]-9 [employer] Results Reviewed Results Reviewed: Laboratory Tests 02/11/24 12:54 Random Glucose 119 H C-Reactive Protein 0.47 Bilateral Hand XR 01/10/2023. FINDINGS: Single surgical screw fusing the second PIP joint with osseous fusion. New surgical screw fusing the third PIP joint without definite osseous fusion. No evidence of hardware fracture or complication. No acute fracture or dislocation. Advanced degenerative changes of the proximal and distal interphalangeal joints. Soft tissue swelling about Assessment & Plan Assessment & Plan (1) Osteoarthritis of hands, bilateral: Code(s): M19.041 - Primary osteoarthritis, right hand; M19.042 - Primary osteoarthritis, left hand Category: Medical Qualifiers: Osteoarthritis type: primary Qualified Code(s): M19.041 - Primary osteoarthritis, right hand; M19.042 - Primary osteoarthritis, left hand Plan: #Bilateral Hand OA Patient with a flare of her bilateral hand OA. Plan -Topical diclofenac up to 4 times a day - Steroid injection to the 1st, 3rd and 5th PIP joints today - RTC 6 months (2) Osteopenia: Code(s): M85.80 - Other specified disorders of bone density and structure, unspecified site Category: Medical Qualifiers: Osteopenia location: femoral neck Laterality: left Qualified Code(s): M85.852 - Other specified disorders of bone density and structure, left thigh Plan: #Left femoral neck osteopenia DEXA confirms osteopenia No falls or fractures FRAX score does not indicate treatment Plan - Vit D - Weight bearing exercises Plan I spent 25 minutes reviewing the record and labs, seeing the patient, discussing the treatment plan and documenting in the medical record ? Orders: Orders AMB Joint Injection/Aspiration Today M18.11 - Unilateral primary osteoarthritis of first carpometacarpal joint, right hand AMB Joint Injection/Aspiration Today M19.041 - Primary osteoarthritis, right hand AMB Joint Injection/Aspiration Today M19.041 - Primary osteoarthritis, right hand Medications: New Kenalog (triamcinolone acetonide) 20 mg (0.5 mL) intra-articular ONCE 0.5 mL 0RF NS M19.041 - Primary osteoarthritis, right hand Kenalog (triamcinolone acetonide) 20 mg (0.5 mL) intra-articular ONCE 0.5 mL 0RF NS M19.041 - Primary osteoarthritis, right hand Coding Level of Care Code Est Pt Level 3 (26504) Diagnoses Primary osteoarthritis of both hands M19.041; M19.042 Osteoarthritis type: primary Osteopenia of neck of left femur M85.852 Osteopenia location: femoral neck Laterality: left CPT Codes Coding - 92456 - Small joint: 01512 - Small Joint ([id number]) Coding - 18310 - Small joint: 96989 - Small Joint ([id number]) Coding - 31985 - Small joint: 55851 - Small Joint ([id number])
[2025-03-17 13:32] VITALS: BP 138/70; PULSE 73; O2SAT 96; BMI 32.2
--- OUTSIDE RECORDS SUMMARY | 2025-03-17 15:25 | XMS_ITS | Encounter Summary ---
Author Organization [employer] Address [address] [place] [address] Care Team Providers Care Property And Casualty Insurance Agent Name Role Phone Sofia Montalvo MD Primary Care Provide r Reason for Visit * Reason Comments Med Refill Encounter Details Date Type Department Care Team ([facility] st Contact Info) Description 02/18/2024 Refill [facility] [address] [place], [place] [phone] Sofia Montalvo MD [address], [place] [phone] Chronic diarrhea Social History Tobacco Use Types [...] Care Team (Late st Contact Info) Description 04/14/2025 1:00 PM EDT Medication Management [facility] [address] [place] [phone] Corey Fournier, PharmD [address] [place] [phone] 05/08/2025 1:15 PM EDT Office Visit [facility] [address] [place] [phone] Tyrell Madrigal MD [address] [place] [phone] 06/22/2025 3:00 PM EDT Office Visit [facility] [address] [place] [phone] Socorro Johnson documented as of this encounter Visit Diagnoses Diagnosis Chronic diarrhea Diarrhea documented in this encounter Care Teams Property And Casualty Insurance Agent Relationship Specialty Start Date End Date Sofia Montalvo MD [address] [place] [phone] PCP - General Family Medicine 09/23/21 documented as of this encounter
== END 2025-03-17 14:28 | disposition home or self-care (01) ==
LOC: HO.RHE 13:06
PROVIDERS: PCP Internal Medicine; Visit Provider Student in an Organized Health Care Education/Training Program
DX: M19.041 Primary osteoarthritis, right hand (principal); M19.042 Primary osteoarthritis, left hand; M85.852 Other specified disorders of bone density and structure, left thigh; M18.11 Unilateral primary osteoarthritis of first carpometacarpal joint, right hand
CPT/HCPCS: 20600; 99213

== ENCOUNTER → 2025-03-17 13:05 | Outpatient (BNVA) | payer MEDICARE, MEDICAID, SELFPAY | PROVIDERS: PCP Internal Medicine; Visit Provider Student in an Organized Health Care Education/Training Program | DX: M19.041 Primary osteoarthritis, right hand (principal); M19.042 Primary osteoarthritis, left hand; M85.852 Other specified disorders of bone density and structure, left thigh | CPT/HCPCS: 20600; 99212; J3300 ==

== ENCOUNTER 2025-03-17 14:43 | Outpatient (REF) | payer MEDICARE, MEDICAID, SELFPAY ==
--- NOTE | ~2025-03-17 | XR_ITS ---
EXAMINATION: XR KNEE 4 OR MORE VIEWS LEFT HISTORY: pain COMPARISON: Correlation is made with the standing AP view of the left knee dated 09/11/2016. FINDINGS: Four views of the left knee are submitted. Osseous mineralization is normal. There is no fracture or dislocation. There is mild osteoarthritis of the medial compartment, with joint space narrowing and osteophyte formation. The soft tissues are unremarkable. There is no joint effusion. XR/XR knee LT 4V IMPRESSION: Mild osteoarthritis of the medial compartment. Electronically signed by: Sunil Mohan MD 03/18/2025 07:53 AM EDT
== END 2025-03-17 14:44 | disposition home or self-care (01) ==
LOC: HO.XRAY 14:43
PROVIDERS: PCP Internal Medicine; Visit Provider Internal Medicine
DX: M25.562 Pain in left knee (principal)
CPT/HCPCS: 73564

== ENCOUNTER → 2025-03-17 14:48 | Outpatient (BNV) | payer MEDICARE, MEDICAID, SELFPAY | PROVIDERS: PCP Internal Medicine; Visit Provider Radiology Diagnostic Radiology | DX: M25.562 Pain in left knee (principal) | CPT/HCPCS: 73564 ==

== ENCOUNTER 2025-04-14 06:16 | Outpatient (REF) | payer MEDICARE, MEDICAID, SELFPAY | END 2025-04-14 06:17 | disposition home or self-care (01) | LOC: CF 06:16 | PROVIDERS: Visit Provider Anesthesiology | DX: M54.51 Vertebrogenic low back pain (principal); M53.3 Sacrococcygeal disorders, not elsewhere classified; M47.26 Other spondylosis with radiculopathy, lumbar region; M51.361 Other intervertebral disc degeneration, lumbar region with lower extremity pain only; M46.1 Sacroiliitis, not elsewhere classified; G89.4 Chronic pain syndrome; M15.9 Polyosteoarthritis, unspecified; R60.0 Localized edema; R10.9 Unspecified abdominal pain; Z79.891 Long term (current) use of opiate analgesic; Z79.899 Other long term (current) drug therapy | CPT/HCPCS: 62370; 99212 ==

== ENCOUNTER 2025-04-14 11:45 | Outpatient (AMB) | payer MEDICARE, MEDICAID, SELFPAY ==
[2025-04-14 12:08] VITALS: BP 132/79; PULSE 80; RESP 18; O2SAT 100
--- NOTE | 2025-04-14 12:08 | MHC.OFFVIS ---
Vital Signs 04/14/25 12:08 Weight 176 lb BP 132/79 Blood Pressure Location Lt brachial Position Sitting Respiration 18 Pulse 80 Pulse Source Pulse Oximeter Pulse Oximetry (%) 100 Oxygen Delivery Method Room Air Intake Visit Reasons: ITDD Refill Allergies Seasonal Allergies Allergy (Mild, Verified 03/17/25 13:34) Unknown HPI Comments Details: Norma is here for replacement of the medication in her pain pump. She currently is on following concentration of the medication: Hydromorphone 400 micro g per mL bupivacaine 40 milligrams/mL and baclofen 200 micro g per mL. She reports not very adequate pain control. She requests me to increase the on demand doses. I will increase her dose of the bolus from hydromorphone 189 micro g with corresponding doses of the bupivacaine and baclofen 2 hydromorphone 200 micro g with the same corresponding doses of the baclofen and bupivacaine. She will have an opportunity to deliver herself 5 boluses in 24 hours with lockout duration 3 hours and 1 bolus in 3 hours. She reports that she will be spending some time in [place] in May. She will be scheduled for next pump refill at the beginning of June. she continues to complain on pain in her lower back and pain with difficulty with prolonged sitting and flexing forward. COUNTS INCLUDE 234 BEDS AT THE [facility] Medical History (Updated 02/20/25 @ 16:51 by Sherri Britton MD) Osteopenia Asthma-COPD overlap syndrome Lumbar back pain with radiculopathy affecting right lower extremity Sacroiliac joint dysfunction of right side Sacroiliitis Disc degeneration, lumbar HPV test positive Chronic pain syndrome Acute blood loss anemia Hypertension Osteoarthritis of right knee MENDENHALL (dyspnea on exertion) Presence of dental bridge Sleep apnea Diabetes Overflow stress urinary incontinence in female Urge incontinence Primary osteoarthritis of hands, bilateral Loose right total knee arthroplasty Hx of carpal tunnel syndrome Pulmonary nodules GERD (gastroesophageal reflux disease) Surgical History Hx of tubal ligation H/O knee surgery History of orthopedic surgery History of arthroplasty of right knee History of pubovaginal sling Hx of colonoscopy History of carpal tunnel release of both wrists History of esophagogastroduodenoscopy (EGD) Previous back surgery History of endometrial ablation Hx of section Family History Mother Diabetes Arthritis Brother Cancer Paternal Aunt Breast cancer Social History Household Members: None Housing: Apartment Are you a primary care services manager to a significant other at home: No Do you presently have visiting nurse or other home services: No Alcohol intake: former Year quit: 2018 Patient Tobacco Use Status: Current everyday Tobacco user Tobacco use type: Cigarette Cigarettes Per Day: 5 Years Smoked: 2014 Second Hand Smoke Exposure: No Substance Use Type: Crack/Cocaine and Marijuana service: No Current occupational status: disabled Current occupation: rt handed Female Reproductive History Menstrual Age of Menarche: 11 Review of Systems Const All systems reviewed & are unremarkable except as noted in HPI and below ENT Reports Normal hearing present Neuro Reports Normal hearing present and Denies Abnormal speech present Physical Exam Vital Signs: Last Vital Signs Pulse 80 04/14/25 12:08 Resp 18 04/14/25 12:08 BP 132/79 04/14/25 12:08 Pulse Ox 100 04/14/25 12:08 Oxygen Delivery Method Room Air 04/14/25 12:08 Const General: no acute distress Nutritional Appearance: obese Orientation/consciousness: patient oriented x3 Limitations: language barrier HEENT Head: Yes atraumatic Mouth: no other ( thrush) Throat: No postnasal drainage Eyes General: appearance normal, both eyes and all related structures Sclerae: sclerae normal EOM: EOMs intact bilaterally Neck Neck: Yes normal visual inspection Lymphatic: no lymphadenopathy noted Chest Chest palpation & inspection: normal inspection of the chest Resp Effort & Inspection: normal respiratory effort, able to speak in complete sentences, normal respiratory pattern, no audible wheezes and no cough Auscultation: clear to auscultation bilaterally Cardio Jugular venous distension: no JVD GI Inspection: Yes normal to inspection and Yes distended Auscultation: normal bowel sounds Skin General skin exam: no rashes or lesions noted Neuro General: patient oriented x3, gait normal and moves all extremities Cranial nerves: Yes Normal hearing present Speech: No Abnormal speech present Extrem General: Yes normal to inspection Psych Appearance: grossly normal Mental Status: mental status grossly normal Assessment & Plan Assessment & Plan (1) Vertebrogenic low back pain: Code(s): M54.51 - Vertebrogenic low back pain Category: Medical Plan: (2) Lumbar back pain with radiculopathy affecting right lower extremity: Code(s): M54.16 - Radiculopathy, lumbar region Category: Medical (3) Sacroiliac joint dysfunction of right side: Code(s): M53.3 - Sacrococcygeal disorders, not elsewhere classified Category: Medical (4) Sacroiliitis: Code(s): M46.1 - Sacroiliitis, not elsewhere classified Category: Medical (5) Disc degeneration, lumbar: Code(s): M51.36 - Other intervertebral disc degeneration, lumbar region Category: Medical (6) Spondylosis of lumbar spine: Code(s): M47.816 - Spondylosis without myelopathy or radiculopathy, lumbar region Category: Medical (7) Chronic pain syndrome: Code(s): G89.4 - Chronic pain syndrome Category: Medical Plan: Intrathecal pump refill. THE PATIENT CAME TODAY IN THE office FOR THE CHANGE OF THE MEDICATION IN her PAIN PUMP. The name and date of were verified and informed consent was obtained for the procedure. ?The pump was interrogated and the residual amount of fluid was found to be 3.2 mL. SHE WAS POSITIONED prone on the bed AND THE AREA OF THE INTRATHECAL PUMP WAS PREPPED WITH CHLORAPREP. The fenestrated drape was sterilely applied over the area of the pump. Sterile gloves were worn and of the aspiration system was assembled containing 2 in 22 gauge noncoring needle, the needle was connected to extension tubing which was connected to the 20 cc sterile syringe. The pain pump was palpated under the skin in the patient's right buttock area. The needle was inserted through the skin and the central plug of the pain pump and fluid was aspirated. The clear fluid was going into the syringe the total amount of the fluid was 5.0 mL .. After that a new batch? of medication was obtained which was containing hydromorphone in concentration 4000 micro g/ml , baclofen 200 micro g and bupivacaine 40 mg per ml. The admixture was made in 20 cc syringe prepared by [facility] compounding pharmacy. The syringe was connected to the bacterial filter, and then connected to the extension tubing. After that the medication in the syringe was slowly instilled into the pump with aspirations at 15 and 5 cc fajardo.? The pump was reprogrammed with the doses of 193 micro g per day per day with corresponding dose of bupivacaine of the continuous medication , after 82 hours of bridge bolus she will be able to receive every 3 hours as previously the dose of hydromorphone which was increased today to 200 micro g of hydromorphone and with corresponding doses of the baclofen and bupivacaine. (8) Generalized osteoarthritis: Code(s): M15.9 - Polyosteoarthritis, unspecified Category: Medical (9) Edema of both lower extremities: Code(s): R60.0 - Localized edema Category: Medical (10) Abdominal pain: Code(s): R10.9 - Unspecified abdominal pain Category: Medical Plan Patient continues to complain on advanced pain in her lower back with radiation into bilateral lower extremities, she continues to complain on pain in flexing forward and prolonged sitting. I increase little bit the dose on demand today for the patient. I also will consider the escalation of the doses of the medication. For this purpose I will increase the concentration of the hydromorphone to 8 mg per mL, I will increase concentration of baclofen to 600 micro g per mL, and I will keep bupivacaine at 40 milligrams/mL because it some maximum concentration of bupivacaine. This will allow me to increase the effective dose of baclofen for the patient. Coding Level of Care Code Est Pt Level 3 (55254) Procedure Only Diagnoses Vertebrogenic low back pain M54.51 Lumbar back pain with radiculopathy affecting right lower extremity M54.16 Sacroiliac joint dysfunction of right side M53.3 Sacroiliitis M46.1 Disc degeneration, lumbar M51.36 Spondylosis of lumbar spine M47.816 Chronic pain syndrome G89.4 Generalized osteoarthritis M15.9 Edema of both lower extremities R60.0 Abdominal pain R10.9
== END 2025-04-14 12:22 | disposition home or self-care (01) ==
LOC: HO.PMCPRC 11:45
PROVIDERS: PCP Internal Medicine; Visit Provider Anesthesiology
DX: M54.51 Vertebrogenic low back pain (principal); M54.16 Radiculopathy, lumbar region; M53.3 Sacrococcygeal disorders, not elsewhere classified; M46.1 Sacroiliitis, not elsewhere classified; Z45.1 Encounter for adjustment and management of infusion pump; M51.369 Other intervertebral disc degeneration, lumbar region without mention of lumbar back pain or lower extremity pain; M47.816 Spondylosis without myelopathy or radiculopathy, lumbar region; G89.4 Chronic pain syndrome; M15.9 Polyosteoarthritis, unspecified; R60.0 Localized edema; R10.9 Unspecified abdominal pain
CPT/HCPCS: 62370; 99213

== ENCOUNTER 2025-05-04 14:20 | Outpatient (AMB) | payer MEDICARE, MEDICAID, SELFPAY ==
[2025-05-04 14:33] VITALS: BMI 32.2
--- NOTE | 2025-05-04 14:33 | MHC.OFFVIS ---
Vital Signs 05/04/25 14:33 Height 5 ft 2 in Weight 176 lb BMI 32.2 Intake Visit Reasons: New prob-LT knee pain Intake Note: Norma is a 64 year old female who presents today as a established patient, new problem visit to evaluate for left knee pain. Patient PCP ordered x-rays and was referred to orthopedics for acute left knee pain. Patient reports her pain has been present for a couple of months. Her pain is located in her lower back that radiates down her leg to her knee. Swelling has improved in her left knee. Denies injury. She was recently seen by pain management for a pain pump medications. She mentions a fall 3 separate occasions and difficulty with bending knee. Hx of right TKA, revision 12/21/20 [place] Business Economist Required: Yes Business Economist Services: Business Economist Present Business Economist Name: James ID#[id number] Allergies Seasonal Allergies Allergy (Mild, Verified 05/04/25 14:44) Unknown Medication List - Last Reconciled 05/04/25 by Maxim Duenas PA-C acetaminophen ER 650 mg PO DAILY albuterol sulfate 90 mcg/actuation (Ventolin HFA) 2 puffs PO Q4H PRN arformoterol (Brovana) 2 mL inhalation BID 30 days ascorbic acid (vitamin C) 250 mg PO DAILY atenolol 50 mg PO DAILY budesonide 0.5 mg (2 mL) inhalation BID 30 days calcium polycarbophil (Fiber-Lax) mg PO cetirizine 10 mg PO DAILY chlorthalidone 50 mg PO DAILY cholecalciferol (vitamin D3) 50 mcg PO DAILY clonazepam 0.5 mg PO DAILY dicyclomine 10 mg PO TID 30 days doxepin 50 mg PO BEDTIME escitalopram oxalate 10 mg PO DAILY ferrous gluconate 240 mg PO Q OTHER DAY fluticasone propionate 50 mcg/actuation 1 spray intranasal BID hydrocortisone 2.5% 1 appl NV BID-QID PRN 30 days ipratropium-albuterol 0.5 mg-3 mg(2.5 mg base)/3 mL 3 mL inhalation Q4-6H PRN 30 days losartan 100 mg PO DAILY lubiprostone (Amitiza) 16 mcg (2 x 8 mcg) PO BID 30 days metformin 500 mg PO BID mupirocin 2% 1 appl topical TID naloxone 4 mg/actuation 4 mg intranasal Q2M PRN 1 day pantoprazole 40 mg PO BID polyethylene glycol 3350 (Miralax) 17 grams PO DAILY 1 day pregabalin 150 mg PO BID 30 days simvastatin 40 mg PO BEDTIME zolpidem 10 mg PO BEDTIME PRN HPI HPI New prob-LT knee pain: Details: 64 yo female presents to the office today for left knee pain . She denies injury. It has been present for a few months and she has seen her primary care provider who ordered x-rays and referred her to our office. She states she has pain with everyday activities such as stairs and prolonged walking. She has had no treatment on her left knee. she is S/p revision RT TKA with Dr Covington 05/02/24. She states she is prediabetic. [facility] Medical History Osteopenia Asthma-COPD overlap syndrome Lumbar back pain with radiculopathy affecting right lower extremity Sacroiliac joint dysfunction of right side Sacroiliitis Disc degeneration, lumbar HPV test positive Chronic pain syndrome Acute blood loss anemia Hypertension Osteoarthritis of right knee MENDENHALL (dyspnea on exertion) Presence of dental bridge Sleep apnea Diabetes Overflow stress urinary incontinence in female Urge incontinence Primary osteoarthritis of hands, bilateral Loose right total knee arthroplasty Hx of carpal tunnel syndrome Pulmonary nodules GERD (gastroesophageal reflux disease) Surgical History Hx of tubal ligation H/O knee surgery History of orthopedic surgery History of arthroplasty of right knee History of pubovaginal sling Hx of colonoscopy History of carpal tunnel release of both wrists History of esophagogastroduodenoscopy (EGD) Previous back surgery History of endometrial ablation Hx of section Family History Mother Diabetes Arthritis Brother Cancer Paternal Aunt Breast cancer Social History Household Members: None Housing: Apartment Are you a primary transitional care nurse to a significant other at home: No Do you presently have visiting nurse or other home services: No Alcohol intake: former Year quit: 2018 Patient Tobacco Use Status: Current everyday Tobacco user Tobacco use type: Cigarette Cigarettes Per Day: 5 Years Smoked: 2014 Second Hand Smoke Exposure: No Substance Use Type: Crack/Cocaine and Marijuana service: No Current occupational status: disabled Current occupation: rt handed Female Reproductive History Menstrual Age of Menarche: 11 Review of Systems Const All systems reviewed & are unremarkable except as noted in HPI and below Physical Exam Vital Signs: BMI result Body Mass Index 32.2 Extrem Other: Left knee is normal to inspection no effusion. She has full range of motion with crepitus and tenderness along the lateral side of the patella. She also has medial joint line tenderness. Calf supple and nontender neurovascularly intact. Office Procedures AMB Joint Injection/Aspiration Joint Injection/Aspiration Primary Site: left knee Prep: site was prepped using aseptic technique, ethochloride spray was applied and injection warnings given Injected: 40 mg of, DepoMedrol, with 8 mL of, 1% plain lidocaine and in the joint Approach Used: anterolateral Procedure: The patient tolerated the procedure well and there was some relief with the local anesthesia Coding 80054 - Glenohumeral/Tronchanteric Bursa/Intraarticular Procedure code (CPT) selection complete Results Reviewed Results Reviewed: XR knee LT 4V 03/17/25 IMPRESSION: Mild osteoarthritis of the medial compartment. Assessment & Plan Assessment & Plan (1) Osteoarthritis of left knee: Code(s): M17.12 - Unilateral primary osteoarthritis, left knee Category: Medical Plan: We discussed options today which include conservative management with physical therapy and steroid injections. She is agreeable to physical therapy and an order has been placed and information was given to her to make an appointment. We also discussed the benefits of injections which she is interested in today. The left knee was injected today which she tolerated well. The patient will continue with activities as tolerated and if symptoms persist or worsen over the next 8-12 weeks she can contact our office otherwise follow up as needed. Coding Level of Care Code Est Pt Level 3 (98898) Complex EM visit Add On G2211 Diagnoses Osteoarthritis of left knee M17.12 CPT Codes Coding - Joint 7: 64051 - Glenohumeral/Tronchanteric Bursa/Intraarticular ([id number])
--- OUTSIDE RECORDS SUMMARY | 2025-05-04 15:05 | XMS_ITS | Encounter Summary ---
Author Organization [employer] Address [address] [place] [address] Care Team Providers Care Content Architect Name Role Phone Sofia Montalvo MD Primary Care Provide r Reason for Visit * Reason Comments Med Refill Encounter Details Date Type Department Care Team ([facility] st Contact Info) Description 02/18/2024 Refill [facility] [address] [place], [place] [phone] Sofia Montalvo MD [address] [place], [place] [phone] Chronic diarrhea Social History Tobacco Use Types [...] Care Team (Late st Contact Info) Description 05/26/2025 10:00 AM EDT Clinical Support [facility] [address] [place] [phone] Crystal Head RN 06/05/2025 1:15 PM EDT Office Visit [facility] [address] [place] [phone] Tyrell Madrigal MD [address] [place] [phone] 06/22/2025 3:00 PM EDT Office Visit [facility] [address] [place] [phone] Socorro Johnson documented as of this encounter Visit Diagnoses Diagnosis Chronic diarrhea Diarrhea documented in this encounter Care Teams Content Architect Relationship Specialty Start Date End Date Sofia Montalvo MD [address] [place] [phone] PCP - General Family Medicine 09/23/21 documented as of this encounter
== END 2025-05-04 15:08 | disposition home or self-care (01) ==
LOC: HO.HOS 14:21
PROVIDERS: PCP Internal Medicine; Visit Provider Physician Assistant
DX: M17.12 Unilateral primary osteoarthritis, left knee (principal)
CPT/HCPCS: 20610; 99213

== ENCOUNTER → 2025-05-04 14:20 | Outpatient (BNVA) | payer MEDICARE, MEDICAID, SELFPAY | PROVIDERS: PCP Internal Medicine; Visit Provider Physician Assistant | DX: M25.562 Pain in left knee (principal); Z96.651 Presence of right artificial knee joint; Z79.52 Long term (current) use of systemic steroids | CPT/HCPCS: 20610; 99212; J1010; J2003 ==

== ENCOUNTER 2025-06-17 13:05 | Outpatient (AMB) | payer MEDICARE, MEDICAID, SELFPAY ==
--- NOTE | 2025-06-17 13:09 | MHC.OFFVIS ---
Vital Signs 06/17/25 13:34 Height 5 ft 2 in Weight 175 lb BMI 32.0 BP 154/72 H Blood Pressure Location Lt brachial Position Sitting Respiration 16 Pulse 81 Pulse Source Pulse Oximeter Pulse Oximetry (%) 94 Oxygen Delivery Method Room Air Intake Visit Reasons: ITDD REFILL Cigar Packer And Picker Required: Yes Cigar Packer And Picker Name: Estelle Castañeda MA Accompanied by: Self / Same As Patient Allergies Seasonal Allergies Allergy (Mild, Verified 06/17/25 13:35) Unknown HPI Comments Details: Norma is here for replacement of the medication in her pain pump. She currently is on following concentration of the medication: Hydromorphone 4000 micro g per mL , bupivacaine 40 milligrams/mL and baclofen 200 micro g per mL. After increase of the dose of the medication last time she does not report excruciating pain. Mostly she complains on pain in the face, she recently fell. The new concentration of the medication will contain hydromorphone 8000 micro g per mL, bupivacaine 40 milligrams/mL and baclofen 600 micro g per mL. The patient was informed about lower extremity weakness after increase of the baclofen concentration. The full refill of the pump see as below. She was given a bridge bolus for 82 hours to come over onto new medication concentrations. [facility] Medical History Osteopenia Asthma-COPD overlap syndrome Lumbar back pain with radiculopathy affecting right lower extremity Sacroiliac joint dysfunction of right side Sacroiliitis Disc degeneration, lumbar HPV test positive Chronic pain syndrome Acute blood loss anemia Hypertension Osteoarthritis of right knee M[place]ALL (dyspnea on exertion) Presence of dental bridge Sleep apnea Diabetes Overflow stress urinary incontinence in female Urge incontinence Primary osteoarthritis of hands, bilateral Loose right total knee arthroplasty Hx of carpal tunnel syndrome Pulmonary nodules GERD (gastroesophageal reflux disease) Surgical History Hx of tubal ligation H/O knee surgery History of orthopedic surgery History of arthroplasty of right knee History of pubovaginal sling Hx of colonoscopy History of carpal tunnel release of both wrists History of esophagogastroduodenoscopy (EGD) Previous back surgery History of endometrial ablation Hx of section Family History Mother Diabetes Arthritis Brother Cancer Paternal Aunt Breast cancer Social History Household Members: None Housing: Apartment Are you a primary career services coordinator to a significant other at home: No Do you presently have visiting nurse or other home services: No Alcohol intake: former Year quit: 2018 Patient Tobacco Use Status: Current everyday Tobacco user Tobacco use type: Cigarette Cigarettes Per Day: 5 Years Smoked: 2014 Second Hand Smoke Exposure: No Substance Use Type: Crack/Cocaine and Marijuana service: No Current occupational status: disabled Current occupation: rt handed Female Reproductive History Menstrual Age of Menarche: 11 Review of Systems Const All systems reviewed & are unremarkable except as noted in HPI and below ENT Reports Normal hearing present Neuro Reports Normal hearing present and Denies Abnormal speech present Physical Exam Vital Signs: Last Vital Signs Pulse 81 06/17/25 13:34 Resp 16 06/17/25 13:34 BP 154/72 H 06/17/25 13:34 Pulse Ox 94 06/17/25 13:34 Oxygen Delivery Method Room Air 06/17/25 13:34 BMI result Body Mass Index 32.0 Const General: no acute distress Nutritional Appearance: obese Orientation/consciousness: patient oriented x3 Limitations: language barrier HEENT Head: Yes atraumatic Mouth: no other ( thrush) Throat: No postnasal drainage Eyes General: appearance normal, both eyes and all related structures Sclerae: sclerae normal EOM: EOMs intact bilaterally Neck Neck: Yes normal visual inspection Lymphatic: no lymphadenopathy noted Chest Chest palpation & inspection: normal inspection of the chest Resp Effort & Inspection: normal respiratory effort, able to speak in complete sentences, normal respiratory pattern, no audible wheezes and no cough Auscultation: clear to auscultation bilaterally Cardio Jugular venous distension: no JVD GI Inspection: Yes normal to inspection and Yes distended Auscultation: normal bowel sounds Skin General skin exam: no rashes or lesions noted Neuro General: patient oriented x3, gait normal and moves all extremities Cranial nerves: Yes Normal hearing present Speech: No Abnormal speech present Extrem General: Yes normal to inspection Psych Appearance: grossly normal Mental Status: mental status grossly normal Assessment & Plan Assessment & Plan (1) Vertebrogenic low back pain: Code(s): M54.51 - Vertebrogenic low back pain Category: Medical Plan: (2) Lumbar back pain with radiculopathy affecting right lower extremity: Code(s): M54.16 - Radiculopathy, lumbar region Category: Medical (3) Sacroiliac joint dysfunction of right side: Code(s): M53.3 - Sacrococcygeal disorders, not elsewhere classified Category: Medical (4) Sacroiliitis: Code(s): M46.1 - Sacroiliitis, not elsewhere classified Category: Medical (5) Disc degeneration, lumbar: Code(s): M51.36 - Other intervertebral disc degeneration, lumbar region Category: Medical (6) Spondylosis of lumbar spine: Code(s): M47.816 - Spondylosis without myelopathy or radiculopathy, lumbar region Category: Medical (7) Chronic pain syndrome: Code(s): G89.4 - Chronic pain syndrome Category: Medical Plan: Intrathecal pump refill. THE PATIENT CAME TODAY IN THE office FOR THE CHANGE OF THE MEDICATION IN her PAIN PUMP. The name and date of were verified and informed consent was obtained for the procedure. ?The pump was interrogated and the residual amount of fluid was found to be 2.5 mL. SHE WAS POSITIONED prone on the bed AND THE AREA OF THE INTRATHECAL PUMP WAS PREPPED WITH CHLORAPREP. The fenestrated drape was sterilely applied over the area of the pump. Sterile gloves were worn and of the aspiration system was assembled containing 2 in 22 gauge noncoring needle, the needle was connected to extension tubing which was connected to the 20 cc sterile syringe. The pain pump was palpated under the skin in the patient's right buttock area. The needle was inserted through the skin and the central plug of the pain pump and fluid was aspirated. The clear fluid was going into the syringe the total amount of the fluid was 5.0 mL .. After that a new batch? of medication was obtained which was containing hydromorphone in concentration 4000 micro g/ml , baclofen 600 micro g and bupivacaine 40 mg per ml. The admixture was made in 20 cc syringe prepared by [facility] compounding pharmacy. The syringe was connected to the bacterial filter, and then connected to the extension tubing. After that the medication in the syringe was slowly instilled into the pump with aspirations at 15 and 5 cc fajardo.? The pump was reprogrammed with the doses of 384.7 micro g per day (minimal daily dose per pump with current concentration of hydromorphone 8000 mcg per ml) with corresponding dose of bupivacaine of the continuous medication , after 82 hours of bridge bolus she will be able to receive every 3 hours as previously the dose of hydromorphone which was increased today to 200 micro g of hydromorphone and with corresponding doses of the baclofen and bupivacaine. 82 hours bridge bolus was introduced and patient was explained the effect of the bridge bolus on ability to receive the PTM doses. (8) Generalized osteoarthritis: Code(s): M15.9 - Polyosteoarthritis, unspecified Category: Medical (9) Edema of both lower extremities: Code(s): R60.0 - Localized edema Category: Medical (10) Abdominal pain: Code(s): R10.9 - Unspecified abdominal pain Category: Medical Plan Rosalie informed us today that she is planning to move to [place]. I explained to the patient that it is her responsibility to find a physician in [place] area who will be able to take care of her pain pump. I also informed her that she needs to decide on insurance in [place]. Here in [place] she had [employer]. The pain pump refill is as above. If patient will not move to [place] will see her here in 64 days. If she will provide us with the name of the physician in [place] we will provide all the necessary information to continue seamless transition to another practice. She also was explained temporary side effects of the baclofen dose increase with her legs becoming weaker temporarily with baclofen concentration increase 3 times versus main drug hydromorphone concentration was increased two -fold only. Next pump refill will be scheduled in 90 days. Coding Level of Care Code Est Pt Level 3 (80544) Procedure Only Diagnoses Vertebrogenic low back pain M54.51 Lumbar back pain with radiculopathy affecting right lower extremity M54.16 Sacroiliac joint dysfunction of right side M53.3 Sacroiliitis M46.1 Disc degeneration, lumbar M51.36 Spondylosis of lumbar spine M47.816 Chronic pain syndrome G89.4 Generalized osteoarthritis M15.9 Edema of both lower extremities R60.0 Abdominal pain R10.9
[2025-06-17 13:34] VITALS: BP 154/72; PULSE 81; RESP 16; O2SAT 94; BMI 32.0
--- OUTSIDE RECORDS SUMMARY | 2025-06-17 16:07 | XMS_ITS | Encounter Summary ---
Author Organization [employer] Address [address] [place] [address] Care Team Providers Care Correctional Guard Name Role Phone Sofia Montalvo MD Primary Care Provide r Reason for Visit * Reason Comments Med Refill Encounter Details Date Type Department Care Team ([facility] st Contact Info) Description 11/28/2024 Refill [facility] MEDICINE [address] [place], [place] [phone] Sofia Montalvo MD [address] [place], [place] [phone] Chronic diarrhea Social History Tobacco Use Types [...] Care Team (Late st Contact Info) Description 06/18/2025 2:00 PM EDT Office Visit [facility] MEDICINE [address] [place] [address] Sofia Montalvo MD [address] [place] [address] 06/22/2025 3:00 PM EDT Office Visit [facility] ADULT DENTAL [address] [place] [address] Socorro Johnson 10/27/2025 1:30 PM EST Office Visit [facility] OPTOMETRY [address] [place] [address] Celina Olivares, OD [address] [place] [address] documented as of this encounter Visit Diagnoses Diagnosis Chronic diarrhea Diarrhea documented in this encounter Care Teams Correctional Guard Relationship Specialty Start Date End Date Sofia Montalvo MD [address] [place] [address] PCP - General Family Medicine 09/23/21 documented as of this encounter
--- OUTSIDE RECORDS SUMMARY | 2025-06-17 16:07 | XMS_ITS | Encounter Summary ---
Author Organization [employer] Address [address] [place] [address] Care Team Providers Care Peanut Cleaner Name Role Phone Sofia Montalvo MD Primary Care Provide r Encounter Details Date Type Department Care Team (Latest Contact Info) Description 12/20/2020 Abstract [facility] CONVERSIONS Dental, Provider, DDS Social History Tobacco [...] Description 06/18/2025 2:00 PM EDT Office Visit [facility] MEDICINE [address] [place] [address] Sofia Montalvo MD [address] [place] [address] 06/22/2025 3:00 PM EDT Office Visit [facility] ADULT DENTAL [address] [place] [address] Socorro Johnson 10/27/2025 1:30 PM EST Office Visit [facility] OPTOMETRY [address] [place] [address] Celina Olivares, OD [address] [place] [address] documented as of this encounter Visit Diagnoses Not on filedocumented in this encounter Care Teams Peanut Cleaner Relationship Specialty Start Date End Date Sofia Montalvo MD [address] [place] [address] PCP - General Family Medicine 09/23/21 documented as of this encounter
--- OUTSIDE RECORDS SUMMARY | 2025-06-17 16:07 | XMS_ITS | Encounter Summary ---
Author Organization [employer] Address [address] [place] [address] Care Team Providers Care Cuff Presser Name Role Phone Sofia Montalvo MD Primary Care Provide r Reason for Visit * Reason Comments Med Refill Encounter Details Date Type Department Care Team ([facility] Contact Info) Description 09/29/2022 Refill [facility] MED & PEDS [address] [place], [place] [phone] Mandie Burton, ANP [address] [place] [address] Social History Tobacco Use Types Packs/Day Years [...] Upcoming Encounters Date Type Department Care Team ([facility] Contact Info) Description 06/18/2025 2:00 PM EDT Office Visit [facility] MEDICINE [address] [place], [place] [phone] Sofia Montalvo MD [address] [place] [address] 06/22/2025 3:00 PM EDT Office Visit [facility] ADULT DENTAL [address] [place] [address] Elizbaeth Socorro 10/27/2025 1:30 PM EST Office Visit [facility] OPTOMETRY [address] [place], [place] [phone] Celina Olivares, OD [address] [place] [address] documented as of this encounter Visit Diagnoses Not on filedocumented in this encounter Care Teams Cuff Presser Relationship Specialty Start Date End Date Sofia Montalvo MD [address] [place], [place] [phone] PCP - General Family Medicine 09/23/21 documented as of this encounter
--- OUTSIDE RECORDS SUMMARY | 2025-06-17 16:07 | XMS_ITS | Clinical Summary ---
Author Organization [facility] [place] Address [address] [place] [address] Phone Care Team Providers Care Transmission Mechanic Name Role Phone Ramon Oropeza NP Primary Care Provider [phone] Allergies No known active allergies Medications albuterol HFA (PROAIR HFA ; PROVENTIL HFA ; VENTOLIN HFA) 90 mcg/actuation inhaler Inhale 2 puffs by mouth 4 (four) times a day. Active ascorbic acid (VITAMIN C) 250 MG chewable tablet Chew 1 tablet (250 mg total) 1 (one) time each day. Active budesonide (PULMICORT) 0.5 mg/2 mL nebulizer solution Take 2 mL (0.5 mg total) by nebulization 2 (two) times a day. Rinse mouth with water after use to reduce aftertaste and incidence of candidiasis. Do not swallow. Active busPIRone (BUSPAR) 15 mg tablet Take 1 tablet (15 mg total) by mouth 2 (two) times a day. Active cetirizine (ZyrTEC) 10 mg tablet Take 1 tablet (10 mg total) by mouth 1 (one) time each day. Active cholecalcifer ol (VITAMIN D-3) 50 mcg (2,000 unit) tablet Take 1 tablet (2,000 Units total) by mouth 1 (one) time each day. Active docusate sodium (COLACE) 100 mg capsule Take 1 capsule (100 mg total) by mouth 2 (two) times a day. Active escitalopram (LEXAPRO) 10 mg tablet Take 1 tablet (10 mg total) by mouth 1 (one) time each day. Active ferrous gluconate 256 mg (28 mg iron) tablet Take 1 tablet (28 mg total) by mouth every other day. Active fluticasone propionate (FLONASE) 50 mcg/actuation nasal spray Administer 1 spray into each nostril 2 (two) times a day. Shake gently. Before first use, prime pump. After use, clean tip and replace cap. Active hydrocortison e (ANUSOL-HC) 2.5 % rectal cream Insert 1 Application into the rectum 2 (two) times a day. Active polyethylene glycol (MIRALAX) 17 gram packet Take 17 g by mouth 1 (one) time each day. Active pregabalin (LYRICA) 150 mg capsule Take 1 capsule (150 mg total) by mouth 2 (two) times a day. Max Daily Amount: 300 mg Active senna (SENOKOT) 8.6 mg tablet Take 1 tablet (8.6 mg total) by mouth 1 (one) time each day. Active simvastatin (ZOCOR) 40 mg tablet Take 1 tablet (40 mg total) by mouth at bedtime. Active zolpidem (AMBIEN) 5 mg tablet Take 1 tablet (5 mg total) by mouth at bedtime as needed for sleep. Max Daily Amount: 5 mg Active pantoprazole (PROTONIX) 40 mg EC tablet Take 1 tablet (40 mg total) by mouth 2 (two) times a day. Do not crush, chew, or split. Active losartan (COZAAR) 100 mg tablet Take 0.5 tablets (50 mg total) by mouth 1 (one) time each day. 05/24/20 25 025 Active acetaminophen (TYLENOL 8 HOUR) 650 mg 8 hr tablet Take 2 tablets (1,300 mg total) by mouth every 8 (eight) hours if needed for mild pain. Do not crush, chew, or split. 025 Discontinued(S top Taking at Discharge) atenoloL (TENORMIN) 50 mg tablet Take 1 tablet (50 mg total) by mouth 1 (one) time each day. 025 Discontinued(S top Taking at Discharge) chlorthalidon e (HYGROTON) 50 mg tablet Take 1 tablet (50 mg total) by mouth 1 (one) time each day. 025 Discontinued(S top Taking at Discharge) lactulose (CEPHULAC) 10 gram packet Take 1 packet (10 g total) by mouth 2 (two) times a day. 025 Discontinued(S top Taking at Discharge) losartan (COZAAR) 100 mg tablet Take 1 tablet (100 mg total) by mouth 1 (one) time each day. 025 Discontinued Active Problems Problem Noted Date Diagnosed Date Near syncope 05/23/2025 Assessment & Plan (05/23/2025 3:31 AM EDT): Presented with dizziness and lightheadedness. Lost balance and fell on the stairs hitting her face on the stair. Face is swollen and complained of back pain. X-ray thoracic spine showed no acute osseous abnormality. CT head negative Bradycardiac and slightly elevated blood pressure BNP and troponin negative she has not been eating and drinking well for last 1 week DD: Vasovagal, orthostatic hypotension, dehydration, rule out arrhythmia/structural heart disease. Plan: Order orthostatic vitals Ordered echo Consider consulting neurology for further recommendation Telemetry monitoring Started diet On deep vein thrombosis (DVT) prophylaxis 2024 Assessment & Plan (05/23/2025 3:31 AM EDT): On Lovenox Hyperlipidemia 05/23/2025 Assessment & Plan (05/23/2025 3:31 AM EDT): Continue atorvastatin 20 mg nightly Hypertension 05/23/2025 Assessment & Plan (05/23/2025 3:33 AM EDT): Continue losartan 100 mg daily and chlorthalidone 50 mg daily. Holding atenolol 50 mg daily due to bradycardia Asthma 05/23/2025 Assessment & Plan (05/23/2025 3:31 AM EDT): Continue albuterol 2 puffs 4 times daily and budesonide 0.5 mg twice daily Maintain saturation goal more than 90 Patient is a stable. Currently on room air Fall 05/23/2025 Assessment & Plan (05/23/2025 3:31 AM EDT): Patient felt dizzy and lost balance and fell while climbing stairs on her face. Face is swollen on the left side Complain of a headache and back pain after a fall Plan: Ordered Toradol as needed for severe pain and Tylenol for mild and moderate pain. Fall precautions Consult PT/OT Gastritis 05/23/2025 Assessment & Plan (05/23/2025 3:31 AM EDT): Patient complaining of abdominal pain and lost her appetite for last 1 week. Patient states that she had an endoscopy and was found to have gastritis Continue pantoprazole 40 mg twice daily if symptoms worsening, consider consulting gastroenterology Electrolyte abnormality 05/23/2025 Assessment & Plan (05/23/2025 3:56 AM EDT): Hypokalemia Repleted Continue to monitor Encounters Date Type Department Care Team Description 06/04/2025 Telephone [facility] Hematology Oncology [address] [place] [address] [place], [place] 05/22/2025 8:54 PM EDT - 05/24/2025 2:06 PM EDT Hospital Encounter [facility] [address] [place] [address] Brandin López MD Ghauri, Baber, MD Hardee, Jamaal A, MD Near syncope (Primary Dx); Fall, initial encounter; JAIME (acute kidney injury) ([facility] V24) Discharge Disposition: Home or Self Care from Last 3 Months Social History Tobacco Use Types Packs/Day Years Used Date Smoking Tobacco: Every Day Cigarettes Tobacco Cessation:Ready to Q uit: Not Asked; Counseling Given: Not Answered Interpersonal Safety Answer Date Record ed Physical Abuse 05/23/2025 Verbal Abuse 05/23/2025 Comments Unknown Sex and Gender Information Value Date Recorded Sex Assigned at Not on file Legal Sex Female 5:44 AM EST Gender Identity Not on file Sexual Orientation Not on file Travel History Travel Start Travel End [place] 05/12/2025 05/19/2025 Obstetrics History Last Filed Vital Signs Vital Sign Reading Time Taken Comments Blood Pressure 120/69 05/24/2025 11:29 AM EDT Pulse 61 05/24/2025 11:29 AM EDT Temperature 36.6 C (97.9 F) 05/24/2025 11:29 AM EDT Respiratory Rate 18 05/24/2025 7:22 AM EDT Oxygen Saturation 91% 05/24/2025 11:29 AM EDT Inhaled Oxygen Concentration - - Weight - - Height 157.5 cm (5' 2 ) 05/22/2025 8:49 PM EDT Body Mass Index - - Plan of Treatment Health Maintenance Due Date Last Done Comments Breast Cancer Screening 1959 Diabetes: Annual Foot Exam 1969 Hepatitis A Vaccines (1 of 2 - Risk 2-dose series) 1978 Cervical Cancer Screening: Pap Smear 1980 Depression Screening 10/08/2024 Colorectal Cancer Screening: Colonoscopy 05/23/2025 Diabetes: Annual Urine Albumin-Creatinine Ratio (uACR) 05/23/2025 Hepatitis C Screening 05/23/2025 Medicare Annual Wellness Visit 05/23/2025 Osteoporosis Screening (Bone Density Screening) 05/23/2025 Social Influencers of Health Screening 05/23/2025 COVID-19 Vaccine ( season) 2025 Influenza Vaccine (#1) 2025 , 07/27/2022, 07/28/2021, Additional history exists Diabetes: Blood Sugar Control Test (HGBA1C) 06/17/2025 12/15/2024 Diabetes: Annual Retina Eye Exam 09/09/2025 09/09/2024 Diabetes: Annual GFR (Glomerular Filtration Rate) 05/24/2026 05/24/2025, 05/23/2025, 05/22/2025 Falls Risk Assessment 05/24/2026 05/24/2025 Hypertension/CHF/CAD Annual BMP Blood Test 05/24/2026 05/24/2025, 05/23/2025, 05/22/2025 Cholesterol Screening (Lipid Panel) 12/23/2028 12/24/2023 DTaP,Tdap,and Td Vaccines (4 - Td or Tdap) 12/03/2033 12/03/2023, 10/19/2020, 07/04/2010 Hepatitis B Vaccines Completed 09/05/2018, 01/23/2012, 12/13/2011 Zoster Vaccines Completed 05/23/2021, 03/21/2021 Pneumococcal Vaccine: 50+ Years Completed 12/03/2023, 08/04/2011 RSV Immunization Adult Patients Completed 12/03/2023 HIB Vaccines Aged Out No longer eligi ble based on patient's age to complete this topic HPV Vaccines Aged Out No longer eligi ble based on patient's age to complete this topic IPV Vaccines Aged Out No longer eligi ble based on patient's age to complete this topic MMR Vaccines Aged Out No longer eligi ble based on patient's age to complete this topic Meningococcal ACWY Vaccine Aged Out N o longer eligible based on patient's age to complete this topic Meningococcal B Vaccine Aged Out No l onger eligible based on patient's age to complete this topic RSV Immunization Patients Under 20 months Aged Out No longer eligible based on patient's age to complete this topic Varicella Vaccines Aged Out No longer eligible based on patient's age to complete this topic Procedures Procedure Name Priority Date/Time Associated Diagnosis Comments POCT GLUCOSE BLOOD Routine 05/24/2025 11 :27 AM EDT TRANSTHORACIC ECHOCARDIOGRAM (TTE) COMPLETE Routine 05/24/2025 11:20 AM EDT Near syncope CBC WITH AUTO DIFFERENTIAL Routine 05/24/2025 7:53 AM EDT CBC AND DIFFERENTIAL Routine 05/24/2025 7:53 AM EDT COMPREHENSIVE METABOLIC PANEL Routine 05/24/2025 7:53 AM EDT PHOSPHORUS Routine 05/24/2025 7:53 AM EDT MAGNESIUM Routine 05/24/2025 7:53 AM EDT POCT GLUCOSE BLOOD Routine 05/24/2025 6: 30 AM EDT POCT GLUCOSE BLOOD Routine 05/23/2025 9: 22 PM EDT POCT GLUCOSE BLOOD Routine 05/23/2025 4: 07 PM EDT TROPONIN I HIGH SENSITIVITY Routine 05/23/2025 12:27 PM EDT ECG 12-LEAD Routine 05/23/2025 12:05 PM EDT ECG 12-LEAD Routine 05/23/2025 12:05 PM EDT ECG 12-LEAD Routine 05/23/2025 12:04 PM EDT POCT GLUCOSE BLOOD Routine 05/23/2025 11 :45 AM EDT BASIC METABOLIC PANEL Routine 05/23/2025 11:44 AM EDT ECG 12-LEAD Routine 05/23/2025 9:28 AM EDT POCT GLUCOSE BLOOD Routine 05/23/2025 5: 38 AM EDT XR THORACIC SPINE 2 VIEWS STAT 05/23/2025 2:[address] MAXILLOFACIAL WO CONTRAST STAT 05/22/2025 11:[address] HEAD WO CONTRAST STAT 05/22/2025 1 1:55 PM EDT TROPONIN I HIGH SENSITIVITY Timed 05/22/2025 10:29 PM EDT XR CHEST 1 VIEW STAT 05/22/2025 9:43 PM EDT VITAMIN B12 AND FOLATE Add-On 9:17 PM EDT CBC WITH AUTO DIFFERENTIAL STAT 05/22/2025 9:17 PM EDT B-TYPE NATRIURETIC PEPTIDE STAT 05/22/2025 9:17 PM EDT LIPASE STAT 05/22/2025 9:17 PM EDT ACTIVATED PARTIAL THROMBOPLASTIN TIME STAT 05/22/2025 9:17 PM EDT PROTHROMBIN TIME WITH INR STAT 05/22/2025 9:17 PM EDT TROPONIN I HIGH SENSITIVITY Timed 05/22/2025 9:17 PM EDT CBC AND DIFFERENTIAL STAT 05/22/2025 9:17 PM EDT COMPREHENSIVE METABOLIC PANEL STAT 05/22/2025 9:17 PM EDT POCT GLUCOSE BLOOD Routine 05/22/2025 9: 14 PM EDT ECG 12-LEAD STAT 05/22/2025 9:06 PM EDT from Last 3 Months Results * (ABNORMAL) POCT Glucose, blood (05/24/2025 11:27 AM EDT) Only the most recent of7 resultswithin the time period is included. [facility] Glucose POCT 114(H) 70 - 110 mg/dL 05/24/2025 11:28 AM EDT [facility] Blood Capillary blood specimen / Unknown 05/24/2025 11:27 AM EDT 05/24/2025 11:29 AM EDT us Rolando Farmer MD LAB POINT OF CARE TE ST DOCKED DEVICE UNSOLICITED RESULTS Final Result [facility] [address] [place] [id number], * (ABNORMAL) TRANSTHORACIC ECHOCARDIOGRAM (TTE) COMPLETE (05/24/2025 11:20 AM EDT) [facility] LV EDV (A2C) 93 mL CV PACS LV EDV (A4C) 96 mL CV PACS LV Diastolic Volume (BP) 95 46 - 106 mL CV PACS LV ESV (A2C) 41 mL CV PACS LV ESV (A4C) 38 mL CV PACS LV Systolic Volume (BP) 40 14 - 42 mL CV PACS IVSD 1.3(A) 0.6 - 0.9 cm CV PACS LVIDD 4.3 3.8 - 5.2 cm CV PACS LVIDS 3.1 2.2 - 3.5 cm CV PACS LVOT Diameter 1.9 cm CV PACS LVOT Mean Grad 4 mmHg CV PACS LVOT Peak VTI 30.3 cm CV PACS LVOT Mean Adrien 0.9 m/s CV PACS LVOT Peak Adrien 1.4 m/s CV PACS LVOT Peak Gradient 8 mmHg CV PACS LVPWD 1.1(A) 0.6 - 0.9 cm CV PACS MV E' Tissue Velocity Lateral 11 cm/s CV PACS MV E' Tissue Velocity Septal 9 cm/s CV PACS GLS -19.4 % CV PACS GLS -20.3 % CV PACS GLS -22.6 % CV PACS GLS -20.8 % CV PACS Ejection Fraction (A2C) 56 % CV PACS Ejection Fraction (A4C) 61 % CV PACS Ejection Fraction (BP) 58 % CV PACS LVOT Area 2.8 cm2 CV PACS LVOT Stroke Volume 86 mL CV PACS Left Atrium Minor Friendship 5.5 cm CV PACS Left Atrium Major Friendship 6.4 cm CV PACS LA Area Sys (A2C) 20 cm2 CV PACS LA Area Sys (A4C) 26 cm2 CV PACS LA Volume (BP) 73 mL CV PACS RA Area 16.7 cm2 CV PACS RA 2D Volume 42 mL CV PACS RA Major Friendship 5.7 cm CV PACS RA Major Friendship 5.7 cm CV PACS RA Minor Friendship 3.6 cm CV PACS RA Minor Friendship 3.6 cm CV PACS Aortic Valve Cusp Separation mMode 1.8 cm CV PACS AV Mean Gradient 13 mmHg CV PACS Ao VTI 56.5 cm CV PACS AV Peak Adrien 2.5 m/s CV PACS AV Peak Gradient 25 mmHg CV PACS AV Area Continuity Equation 1.5 cm2 CV PACS AV Area Peak Velocity 1.6 cm2 CV PACS Aortic Root M-mode 3.00 cm CV PACS Aortic Sinus Valsalva 3.0 cm CV PACS MV Deceleration [place] 5.1 m/s2 CV PACS E Wave Deceleration Time 188 119 - 242 ms CV PACS MV PHT 55 ms CV PACS MV Peak A Adrien 1.11 m/s CV PACS MV Peak E Adrien 0.95 m/s CV PACS MV Area PHT 4.0 cm2 CV PACS PV Peak Velocity 1.1 m/s CV PACS PV Peak Gradient 5 mmHg CV PACS RV Diastolic Basal Dimension 4.3(A) 2.5 - 4.1 cm CV PACS RV Diastolic Length 7.4 5.9 - 8.3 cm CV PACS RV Diastolic Mid Dimension 3.3 1.9 - 3.5 cm CV PACS RV S' 14 cm/s CV PACS TAPSE 22 mm CV PACS TR Peak Velocity 3.01 m/s CV PACS TR Peak Gradient 36 mmHg CV PACS E/E' Ratio Septal 11 CV PACS E/E' Ratio Averaged 10 CV PACS Relative Wall Thickness ratio 0.51 CV PACS LVOT:AV VTI Index 0.54 CV PACS FS 28 % CV PACS LV Mass 2D 185 g CV PACS LVOT flow 255 mL/s CV PACS AV Velocity Ratio 0.56 CV PACS E/A Ratio 0.9 CV PACS E/E' Ratio Lateral 9 CV PACS Anatomical Region Laterality Modality Ultrasound Narrative 05/24/2025 12:50 PM EDT Left ventricle cavity size is normal. Left ventricular systolic function is in the normal range with an ejection fraction of 55-60%. No regional LV wall motion abnormalities noted. Left ventricle wall thickness is normal. Right ventricle cavity is normal. Right ventricular systolic function is normal. Left Ventricle Left ventricle cavity size is normal. Wall thickness is normal. Systolic function is normal with an ejection fraction of 55-60%. There are no regional LV wall motion abnormalities. There is no diastolic dysfunction. Right Ventricle Right ventricle cavity appears normal. Systolic function is normal. Left Atrium Left atrium cavity size is normal. Right Atrium Right atrium cavity is normal. IVC/SVC Inferior vena cava structure is normal. Mitral Valve Mitral valve structure is normal. There is no significant mitral valve regurgitation. There is no significant stenosis noted. Tricuspid Valve Tricuspid valve structure is normal. There is no significant regurgitation. There is no significant tricuspid valve stenosis. Aortic Valve The aortic valve is trileaflet. The leaflets are not thickened and exhibit normal excursion. There is no regurgitation or stenosis. Pulmonic Valve The pulmonic valve was not well visualized. No significant pulmonic valve regurgitation. No significant pulmonary valve stenosis noted. Ascending Aorta The aorta appears normal in size. Pericardium Pericardium appears normal. There is no pericardial effusion. Study Details Overall the study quality was adequate. Additional technique includes myocardial strain. us Albert Latif MD CV ECHO PROCEDURES Final Result * (ABNORMAL) CBC auto differential (05/24/2025 7:53 AM EDT) Only the most recent of2 resultswithin the time period is included. [facility] WBC 8.4 3.8 - 11.0 K/mcL LAB HEMETOLOGY METHOD 05/24/2025 9:[facility] RBC 3.58(L) 3.90 - 5.20 M/mcL LAB HEMETOLOGY METHOD 05/24/2025 9:15 AM [facility] Hemoglobin 11.1(L) 12.0 - 16.0 g/dL LAB HEMETOLOGY METHOD 05/24/2025 9:15 AM [facility] Hematocrit 34.0(L) 35.0 - 48.0 % LAB HEMETOLOGY METHOD 05/24/2025 9:15 AM [facility] MCV 95.0 80.0 - 100.0 FL LAB HEMETOLOGY METHOD 05/24/2025 9:15 AM [facility] MCH 31.0 27.0 - 34.0 pcg LAB HEMETOLOGY METHOD 05/24/2025 9:15 AM [facility] MCHC 32.7 31.0 - 37.0 g/dL LAB HEMETOLOGY METHOD 05/24/2025 9:15 AM [facility] RDW 14.0 11.5 - 14.5 % LAB HEMETOLOGY METHOD 05/24/2025 9:15 AM [facility] Platelets 257 150 - 400 K/mcL LAB HEMETOLOGY METHOD 05/24/2025 9:15 AM EDT [facility] MPV 9.3 FL LAB HEMETOLOGY METHOD 05/24/2025 9:15 AM [facility] Neutrophils Relative 66.1 42.0 - 75.0 % LAB HEMETOLOGY METHOD 05/24/2025 9:15 AM [facility] Lymphocytes Relative 22.4 15.0 - 50.0 % LAB HEMETOLOGY METHOD 05/24/2025 9:15 AM [facility] Monocytes Relative 8.8 0.0 - 13.0 % LAB HEMETOLOGY METHOD 05/24/2025 9:15 AM [facility] Eosinophils Relative 1.7 0.0 - 7.0 % LAB HEMETOLOGY METHOD 05/24/2025 9:15 AM [facility] Basophils Relative 1.0 0.0 - 2.0 % LAB HEMETOLOGY METHOD 05/24/2025 9:15 AM [facility] Neutrophils Absolute 5.60(H) 1.50 - 5.10 K/[facility] LAB HEMETOLOGY METHOD 05/24/2025 9:15 AM [facility] Lymphocytes Absolute 1.90 0.90 - 4.00 K/[facility] LAB HEMETOLOGY METHOD 05/24/2025 9:15 AM [facility] Monocytes Absolute 0.70 0.20 - 1.00 K/[facility] LAB HEMETOLOGY METHOD 05/24/2025 9:15 AM [facility] Eosinophils Absolute 0.10 0.00 - 0.61 K/[facility] LAB HEMETOLOGY METHOD 05/24/2025 9:15 AM [facility] Basophils Absolute 0.10 0.00 - 0.21 K/[facility] LAB HEMETOLOGY METHOD 05/24/2025 9:15 AM [facility] NRBC 0.1 % LAB HEMETOLOGY METHOD 05/24/2025 9:15 AM EDT [facility] NRBC Absolute 0.01(H) 0.00 - 0.00 K/mcL LAB HEMETOLOGY METHOD 05/24/2025 9:15 AM EDT [facility] Immature Granulocytes Relative 05/24/2025 9:15 AM EDT [facility] Immature Granulocytes Absolute 05/24/2025 9:15 AM EDT [facility] Blood Venous blood specimen / Unknown Venipuncture / Unknown 05/24/2025 7:53 AM EDT 05/24/2025 9:07 AM EDT Brandin López MD LAB BLOOD ORDERABLES Final R esult Performing Organization Address City/[facility]/ZIP Co de Phone Number [facility] [address] [place] [address], * Phosphorus (05/24/2025 7:53 AM EDT) Phosphorus 4.9 2.4 - 5.1 mg/dL LAB CHEMISTRY METHOD 05/24/2025 9:42 AM EDT [facility] Blood Venous blood specimen / Unknown Venipuncture / Unknown 05/24/2025 7:53 AM EDT 05/24/2025 9:04 AM EDT Brandin López MD LAB BLOOD ORDERABLES Final R esult Performing Organization Address City/[facility]/ZIP Co de Phone Number [facility] [address] [place] [address], * Magnesium (05/24/2025 7:53 AM EDT) Magnesium 1.6 1.6 - 2.6 mg/dL LAB CHEMISTRY METHOD 05/24/2025 9:42 AM EDT [facility] Blood Venous blood specimen / Unknown Venipuncture / Unknown 05/24/2025 7:53 AM EDT 05/24/2025 9:04 AM EDT us Brandin López MD LAB BLOOD ORDERABLES Final R esult [facility] [address] [place] [address], * (ABNORMAL) Comprehensive metabolic panel (05/24/2025 7:53 AM EDT) Only the most recent of2 resultswithin the time period is included. Sodium 143 136 - 145 mmol/L LAB CHEMISTRY METHOD 05/24/2025 9:42 AM [facility] Potassium 3.9 3.5 - 5.1 mmol/L LAB CHEMISTRY METHOD 05/24/2025 9:42 AM [facility] Chloride 107 98 - 107 mmol/L LAB CHEMISTRY METHOD 05/24/2025 9:42 AM [facility] CO2 26 20 - 31 mmol/L LAB CHEMISTRY METHOD 05/24/2025 9:42 AM [facility] Anion Gap 10 10 - 17 LAB CHEMISTRY METHOD 05/24/2025 9:42 AM [facility] Glucose 100 74 - 106 mg/dL LAB CHEMISTRY METHOD 05/24/2025 9:42 AM [facility] BUN 22 9 - 23 mg/dL LAB CHEMISTRY METHOD 05/24/2025 9:42 AM [facility] Creatinine 1.62(H) 0.55 - 1.02 mg/dL LAB CHEMISTRY METHOD 05/24/2025 9:42 AM [facility] eGFR 35(L) >=60 mL/min/1 .73m2 LAB CHEMISTRY METHOD 05/24/2025 9:42 AM EDT [facility] Comment:Calculation based on the Chronic Kidney Disease Epidemiology Collaboration (CKD-EPI) equation refit without adjustment for race. BUN/Creatinine Ratio 13.6 12.0 - 20.0 LAB CHEMISTRY METHOD 05/24/2025 9:42 AM [facility] Calcium 8.9 8.3 - 10.6 mg/dL LAB CHEMISTRY METHOD 05/24/2025 9:42 AM [facility] AST (SGOT) 18 0 - 34 unit/L LAB CHEMISTRY METHOD 05/24/2025 9:42 AM [facility] ALT (SGPT) 16 10 - 49 unit/L LAB CHEMISTRY METHOD 05/24/2025 9:42 AM [facility] Alkaline Phosphatase 59 46 - 116 unit/L LAB CHEMISTRY METHOD 05/24/2025 9:42 AM [facility] Total Protein 6.0 5.7 - 8.2 g/dL LAB CHEMISTRY METHOD 05/24/2025 9:42 AM [facility] Albumin 3.0(L) 3.4 - 5.0 g/dL LAB CHEMISTRY METHOD 05/24/2025 9:42 AM [facility] Total Bilirubin 0.3 0.3 - 1.2 mg/dL LAB CHEMISTRY METHOD 05/24/2025 9:42 AM [facility] Blood Venous blood specimen / Unknown Venipuncture / Unknown 05/24/2025 7:53 AM EDT 05/24/2025 9:04 AM EDT us Brandin López MD LAB BLOOD ORDERABLES Final R esult [facility] [address] [place] [address], [place] [phone] * Troponin I high sensitivity (05/23/2025 12:27 PM EDT) Only the most recent of3 resultswithin the time period is included. [facility] High Sensitivity Troponin I <10 <=34 ng/L LAB CHEMISTRY METHOD 05/23/2025 1:34 PM EDT [facility] Blood Venous blood specimen / Unknown Venipuncture / Unknown 05/23/2025 12:27 PM EDT 05/23/2025 1:02 PM EDT Narrative [facility] - 05/23/2025 1:34 PM EDT REFERENCE RANGE: The food service kitchen supervisor 99th percentile upper reference limit(URL)is considered the cut-off normal value for high sensitivity Troponin as defined by the [place] Definition of [place]. MYOCARDIAL INJURY: Elevated Cardiac Troponin values with at least one value above the 99th percentile URL. ACUTE MYOCARDIAL INJURY: Rise and/or fall(Delta Change) of Troponin values -over 50% delta for Troponin values below the 99th percentile cut-off OR -over 20% delta for Troponin values above the 99th percentile cut-off. ACUTE MYOCARDIAL INFARCTION: Acute myocardial injury (Delta Change) with at least one of the following: Clinical symptoms, ECG changes or imaging changes as defined by the [place] Definition of [place]. High Sensitivity Troponin I testing performed on our [employer] chemistry platform is affected by high doses of Biotin. The test may have falsely decreased results. Check with the patient's clinical history for testing interference. Rolando Farmer MD LAB BLOOD ORDERABLES Final Re sult [facility] [address] [place] [address], * ECG 12 lead (05/23/2025 12:05 PM EDT) Only the most recent of5 resultswithin the time period is included. [facility] Ventricular Rate ECG 59 BPM GEMUSE Atrial Rate 59 BPM GEMUSE P-R Interval 144 ms GEMUSE QRS Duration 90 ms GEMUSE Q-T Interval 452 ms GEMUSE QTc 447 ms GEMUSE P Wave Friendship 64 degrees GEMUSE T Friendship 21 degrees GEMUSE ECG Interpretation Sinus bradycardia Minimal voltage criteria for LVH, may be normal variant ( R in aVL ) Confirmed by Baron Childress ([id number]) on 05/28/2025 9:22:52 AM GEMUSE 05/23/2025 12:0 5 PM EDT 05/28/2025 9:22 AM EDT us Rolando Farmer MD ECG ORDERABLES Final Result GEMUSE * (ABNORMAL) Basic metabolic panel (05/23/2025 11:44 AM EDT) Sodium 144 136 - 145 mmol/L LAB CHEMISTRY METHOD 05/23/2025 12:34 PM [facility] Potassium 4.3 3.5 - 5.1 mmol/L LAB CHEMISTRY METHOD 05/23/2025 12:34 PM [facility] Chloride 107 98 - 107 mmol/L LAB CHEMISTRY METHOD 05/23/2025 12:34 PM [facility] CO2 31 20 - 31 mmol/L LAB CHEMISTRY METHOD 05/23/2025 12:34 PM [facility] Anion Gap 6(L) 10 - 17 LAB CHEMISTRY METHOD 05/23/2025 12:34 PM [facility] Glucose 113(H) 74 - 106 mg/dL LAB CHEMISTRY METHOD 05/23/2025 12:34 PM [facility] BUN 20 9 - 23 mg/dL LAB CHEMISTRY METHOD 05/23/2025 12:34 PM [facility] Creatinine 1.53(H) 0.55 - 1.02 mg/dL LAB CHEMISTRY METHOD 05/23/2025 12:34 PM [facility] eGFR 38(L) >=60 mL/min/1 .73m2 LAB CHEMISTRY METHOD 05/23/2025 12:34 PM [facility] Comment:Calculation based on the Chronic Kidney Disease Epidemiology Collaboration (CKD-EPI) equation refit without adjustment for race. BUN/Creatinine Ratio 13.1 12.0 - 20.0 LAB CHEMISTRY METHOD 05/23/2025 12:34 PM EDT [facility] Calcium 9.1 8.3 - 10.6 mg/dL LAB CHEMISTRY METHOD 05/23/2025 12:34 PM EDT [facility] Blood Venous blood specimen / Unknown Venipuncture / Unknown 05/23/2025 11:44 AM EDT 05/23/2025 12:01 PM EDT us Loretta BARTON LAB BLOOD ORDERABLES Final Res ult [facility] [address] [place] [address], [place] [phone] * XR Thoracic Spine 2 Views (05/23/2025 2:26 AM EDT) Anatomical Region Laterality Modality Spine, T-spine Radiographic Linette ging Impressions 05/23/2025 3:16 AM EDT No acute thoracic spine osseous abnormality. /Eastern Narrative 05/23/2025 3:16 AM EDT EXAM: XR Thoracic Spine, 2 View. CLINICAL HISTORY: Injury COMPARISON: None provided. FINDINGS: BONES: Dextroscoliosis. No compression or insufficiency fracture seen. DISCS / DEGENERATIVE CHANGES: Spondyloarthropathy. SOFT TISSUES: The paraspinal soft tissue lines are unremarkable. The visualized lungs are clear. MISCELLANEOUS: Intraspinal leads seen. Procedure Note Ace Queen MD - 05/23/2025 EXAM: XR Thoracic Spine, 2 View. CLINICAL HISTORY: Injury COMPARISON: None provided. FINDINGS: BONES: Dextroscoliosis. No compression or insufficiency fracture seen. DISCS / DEGENERATIVE CHANGES: Spondyloarthropathy. SOFT TISSUES: The paraspinal soft tissue lines are unremarkable. The visualized lungsare clear. MISCELLANEOUS: Intraspinal leads seen. IMPRESSION: No acute thoracic spine osseous abnormality. /Flor Brandin López MD IMG XR PROCEDURES Final Resu lt * CT Maxillofacial wo Contrast (05/22/2025 11:55 PM EDT) Anatomical Region Laterality Modality Head and Neck Computed Tomogra phy Impressions 05/23/2025 1:47 AM EDT 1. Facial swelling. 2. No ocular, orbital rim, or intraorbital injury seen. /Flor Per PQRS, all CT exams are performed using one or more of the following dose reduction techniques: automated exposure control, adjustment of the mA and/or kV according to patient size, or use of iterative reconstruction technique. Narrative 05/23/2025 1:47 AM EDT EXAM: CT Maxillofacial Without Intravenous Contrast. CLINICAL HISTORY: Injury TECHNIQUE: Axial computed tomography images of the face without intravenous contrast. Sagittal and coronal reformations performed. CONTRAST: Without COMPARISON: CT - CT HEAD WO CONTRAST - 05/22/2025 11:49 PM EDT FINDINGS: BONES: No acute fracture or focal osseous lesion. The mandible is intact. SOFT TISSUES: Left facial and preseptal periorbital soft tissue swelling/hematoma. Incompletely assessed. No foreign body seen. SINUSES: The sinuses are clear. ORBITS: The orbits are normal. No retrobulbar hematoma or mass. Procedure Note Ace Queen MD - 05/23/2025 EXAM: CT Maxillofacial Without Intravenous Contrast. CLINICAL HISTORY: Injury TECHNIQUE: Axial computed tomography images of the face without intravenous contrast.Sagittal and coronal reformations performed. CONTRAST: Without COMPARISON: CT - CT HEAD WO CONTRAST - 05/22/2025 11:49 PM EDT FINDINGS: BONES: No acute fracture or focal osseous lesion. The mandible is intact. SOFT TISSUES: Left facial and preseptal periorbital soft tissue swelling/hematoma.Incompletely assessed. No foreign body seen. SINUSES: The sinuses are clear. ORBITS: The orbits are normal. No retrobulbar hematoma or mass. IMPRESSION: 1. Facial swelling. 2. No ocular, orbital rim, or intraorbital injury seen. [place]/Eastern Per PQRS, all CT exams are performed using one or more of the followingdose reduction techniques: automated exposure control, adjustment of themA and/or kV according to patient size, or use of iterative reconstructiontechnique. Brandin López MD IM CT PROCEDURES Final Resu lt * CT Head wo Contrast (05/22/2025 11:55 PM EDT) Anatomical Region Laterality Modality Head and Neck Computed Tomogra phy Impressions 05/23/2025 1:46 AM EDT No acute intracranial abnormality. /Eastern Per PQRS, all CT exams are performed using one or more of the following dose reduction techniques: automated exposure control, adjustment of the mA and/or kV according to patient size, or use of iterative reconstruction technique. Narrative 05/23/2025 1:46 AM EDT EXAM: CT Head Without Intravenous Contrast. CLINICAL HISTORY: Headache, intracranial hemorrhage suspected TECHNIQUE: Axial computed tomography images of the head/brain without intravenous contrast. COMPARISON: None provided. FINDINGS: BRAIN: No acute intraparenchymal hemorrhage. No mass lesion. No CT evidence for acute territorial infarct. No midline shift or extra-axial collection. Chronic white matter microvascular disease changes noted. VENTRICLES: No hydrocephalus. ORBITS: The orbits are unremarkable. SINUSES AND MASTOIDS: The paranasal sinuses and mastoid air cells are clear. SOFT TISSUES: Left facial and preseptal periorbital soft tissue swelling/hematoma. Incompletely assessed. No foreign body seen. BONES: No acute skull fracture. Procedure Note Ace Queen MD - 05/23/2025 EXAM: CT Head Without Intravenous Contrast. CLINICAL HISTORY: Headache, intracranial hemorrhage suspected TECHNIQUE: Axial computed tomography images of the head/brain without intravenouscontrast. COMPARISON: None provided. FINDINGS: BRAIN: No acute intraparenchymal hemorrhage. No mass lesion. No CT evidence foracute territorial infarct. No midline shift or extra-axial collection. Chronic white matter microvascular disease changes noted. VENTRICLES: No hydrocephalus. ORBITS: The orbits are unremarkable. SINUSES AND MASTOIDS: The paranasal sinuses and mastoid air cells are clear. SOFT TISSUES: Left facial and preseptal periorbital soft tissue swelling/hematoma.Incompletely assessed. No foreign body seen. BONES: No acute skull fracture. IMPRESSION: No acute intracranial abnormality. [place]/Eastern Per PQRS, all CT exams are performed using one or more of the followingdose reduction techniques: automated exposure control, adjustment of themA and/or kV according to patient size, or use of iterative reconstructiontechnique. us Brandin López MD IMG CT PROCEDURES Final Resu lt * XR Chest 1 View (05/22/2025 9:43 PM EDT) Anatomical Region Laterality Modality Body Radiographic Linette ging 05/23/2025 7:23 AM EDT Impressions 05/23/2025 7:23 AM EDT No acute abnormality on chest radiograph. Communication: Routine. -------- FINAL REPORT -------- Dictated By: Tavo Dowling Dictated Date: 05/23/2025 07:23 ET Assigned Physician: Tavo Dowling Reviewed and Electronically Signed By: Tavo Dowling Signed Date: 05/23/2025 07:23 ET Workstation ID: [id number] Transcribed By: Self Edit Transcribed Date: 05/23/2025 07:23 ET Narrative 05/23/2025 7:23 AM EDT HISTORY: 64 years old; Female; chest pain; TECHNIQUE: XR CHEST 1 VIEW. COMPARISON: None. FINDINGS: LUNGS: No mass, consolidation, or pneumothorax. MEDIASTINUM: Contours are within normal limits. MSK: No acute displaced fracture. OTHER: Spinal stimulator leads noted. Procedure Note Tavo Dowling MD - 05/23/2025 HISTORY: 64 years old; Female; chest pain; TECHNIQUE: XR CHEST 1 VIEW. COMPARISON: None. FINDINGS: LUNGS: No mass, consolidation, or pneumothorax. MEDIASTINUM: Contours are within normal limits. MSK: No acute displaced fracture. OTHER: Spinal stimulator leads noted. IMPRESSION: No acute abnormality on chest radiograph. Communication: Routine. -------- FINAL REPORT -------- Dictated By: Tavo Dowling Dictated Date: 05/23/2025 07:23 ET Assigned Physician: Tavo Dowling Reviewed and Electronically Signed By: Tavo Dowling Signed Date: 05/23/2025 07:23 ET Workstation ID: [id number] Transcribed By: Self Edit Transcribed Date: 05/23/2025 07:23 ET us Brandin López MD IMG XR PROCEDURES Final Resu lt * Vitamin B12 and folate (05/22/2025 9:17 PM EDT) [facility] Vitamin B-12 355 211 - 911 pcg/mL LAB CHEMISTRY METHOD 05/23/2025 4:30 AM EDT [facility] Folate 13.1 >=5.4 ng/ml LAB CHEMISTRY METHOD 05/23/2025 4:30 AM EDT [facility] Blood Venous blood specimen / Unknown Venipuncture / Unknown 05/22/2025 9:17 PM EDT 05/22/2025 9:22 PM EDT us Albert Latif MD LAB BLOOD ORDERABLES Final Resul t [facility] [address] [place] [address], * Activated partial thromboplastin time (05/22/2025 9:17 PM EDT) Pathologist [facility] aPTT 24.6 24.0 - 33.0 sec LAB COAGULATION METHOD 05/22/2025 9:39 PM EDT [facility] Blood Venous blood specimen / Unknown Venipuncture / Unknown 05/22/2025 9:17 PM EDT 05/22/2025 9:21 PM EDT Narrative [facility] - 05/22/2025 9:39 PM EDT PTT, THERAPEUTIC Xa ACTIVITY RANGE (Sec) UNITS Unfractionated Heparin 77-124 sec. 0.3-0.7 u/mL Unfractionated Heparin 54- 77 sec. 0.1-0.3 u/mL following thrombolytic therapy The Therapeutic Range stated is for patients receiving Unfractionated Heparin. These patients can be monitored using the results of the aPTT test. The aPTT test is NOT recommended for monitoring patients receiving Low Molecular Weight Heparin or Direct Thrombin Inhibitors. us Geoffrey Cedeño MD LAB BLOOD ORDERABLES Final Resul t Performing Organization Address [facility] Co de Phone Number [facility] [address] [place] [address], [place] [phone] * Prothrombin time with INR (05/22/2025 9:17 PM EDT) Protime 12.5 11.5 - 14.7 sec LAB COAGULATION METHOD 05/22/2025 9:38 PM EDT [facility] INR 1.0 0.9 - 1.2 LAB COAGULATION METHOD 05/22/2025 9:38 PM EDT [facility] Blood Venous blood specimen / Unknown Venipuncture / Unknown 05/22/2025 9:17 PM EDT 05/22/2025 9:21 PM EDT us Geoffrey Cedeño MD LAB BLOOD ORDERABLES Final Resul t Performing Organization Address [facility]/ZIP Co de Phone Number [facility] [address] [place] [address], [place] [phone] * B-type natriuretic peptide (05/22/2025 9:17 PM EDT) BNP 41 <=100 pcg/mL LAB CHEMISTRY METHOD 05/22/2025 9:58 PM EDT [facility] Blood Venous blood specimen / Unknown Venipuncture / Unknown 05/22/2025 9:17 PM EDT 05/22/2025 9:31 PM EDT Narrative [facility] - 05/22/2025 9:58 PM EDT B-Type Natriuretic Peptide (BNP) testing performed on our [employer] chemistry platform is affected by high doses of Biotin. The test may have falsely decreased results. Check with the patient's clinical history for testing interference. us Geoffrey Cedeño MD LAB BLOOD ORDERABLES Final Resul t Performing Organization Address City/[facility]/ZIP Co de Phone Number [facility] [address] [place] [address], [place] [phone] * Lipase (05/22/2025 9:17 PM EDT) Lipase 26 13 - 75 unit/L LAB CHEMISTRY METHOD 05/22/2025 9:51 PM EDT [facility] Blood Venous blood specimen / Unknown Venipuncture / Unknown 05/22/2025 9:17 PM EDT 05/22/2025 9:22 PM EDT us Geoffrey Cedeño MD LAB BLOOD ORDERABLES Final Resul t Performing Organization Address City/[facility]/ZIP Co de Phone Number [facility] [address] [place] [address], [place] [phone] from Last 3 Months Insurance MEDICAID - [place] [facility] MEDICARE Member Subscriber Plan / Payer (Ef fective 2025-Present) Name:NENA ADRIAN Member ID:[id number] Relation to Subscriber:Self Name:Nena Adrian Subscriber ID:[id number] Payer ID:[id number] Group ID:Not on file Type:Not on file Address: [address] [place] [id number] Advance Directives * Full Code - Confirmed (Latest Code Status on File) Date Activated Date Inactivated Comments 05/23/2025 3:04 AM 05/24/2025 4:[address] atus was ascertained in the following way: Code status discussion: discussion with patient To update the patient's code status, place a code status order. Do not modify or discontinue any currently active code status orders. * Full Code - Default Date Activated Date Inactivated Comments 05/23/2025 2:32 AM 05/23/2025 3:04 AM This is orde r is used when code status has not been discussed with the patient, or code status is otherwise unknown/unconfirmed To update the patient's code status, place a code status order. Do not modify or discontinue any currently active code status orders. Care Teams Transmission Mechanic Relationship Specialty Start Date End Date Ramon Oropeza NP [address] [place] [address] PCP - General Family Medicine 09/18/18
--- OUTSIDE RECORDS SUMMARY | 2025-06-17 16:07 | XMS_ITS | Encounter Summary ---
Author Organization [employer] Address [address] [place] [address] Care Team Providers Care Manufacturing Supervisor 2Nd Shift Name Role Phone Sofia Montalvo MD Primary Care Provide r Reason for Visit * Reason Comments Med Refill Encounter Details Date Type Department Care Team ([facility] Contact Info) Description 08/23/2023 Refill [facility] [address], [place] [phone] Sofia Montalvo MD [address] [place], [place] [phone] Other chronic pain Social History Tobacco Use [...] Description 06/18/2025 2:00 PM EDT Office Visit [facility]ICINE [address] [place] [address] Sofia Montalvo MD [address] [place] [address] 06/22/2025 3:00 PM EDT Office Visit [facility] ADULT DENTAL [address] [place] [address] Socorro Johnson 10/27/2025 1:30 PM EST Office Visit [facility] OPTOMETRY [address] [place] [address] Marshall, Celina, OD [address] [place] [address] documented as of this encounter Visit Diagnoses Diagnosis Other chronic pain documented in this encounter Care Teams Manufacturing Supervisor 2Nd Shift Relationship Specialty Start Date End Date Sofia Montalvo MD [address] [place] [address] PCP - General Family Medicine 09/23/21 documented as of this encounter
--- OUTSIDE RECORDS SUMMARY | 2025-06-17 16:07 | XMS_ITS | Encounter Summary ---
Author Organization [email or web address] Address [address] [facility] [address] [place] [address] Care Team Providers Care Commodity Lead Name Role Phone Sofia Montalvo MD Primary Care Provide r Encounter Details Date Type Department Care Team (Late Contact Info) Description 10/20/2022 Orders Only [facility] [address] [place] [address] [phone] Jasmyne Hutchison MD [address] [place] [address] [phone] Blurry vision (Primary Dx) Social History Tobacco [...] Department Care Team (Late Contact Info) Description 06/18/2025 2:00 PM EDT Office Visit [facility] [address] [place] [address] [phone] Sofia Montalvo MD [address] [place] [phone] 06/22/2025 3:00 PM EDT Office Visit [facility] ADULT DENTAL [address] [place] [address] ElizabethJarvissa 10/27/2025 1:30 PM EST Office Visit [facility] OPTOMETRY [address] [place], [place] [phone] Celina Olivares, OD [address] [place] [address] documented as of this encounter Visit Diagnoses Diagnosis Blurry vision- Primary Other specified visual disturbances documented in this encounter Care Teams Commodity Lead Relationship Specialty Start Date End Date Sofia Montalvo MD [address] [place] [address] PCP - General Family Medicine 09/23/21 documented as of this encounter
--- OUTSIDE RECORDS SUMMARY | 2025-06-17 16:07 | XMS_ITS | Encounter Summary ---
Author Organization [employer] Address [address] [facility] [address] [address] [place] [address] Care Team Providers Care Black And White Printer Operator Name Role Phone Sofia Montalvo MD Primary Care Provide r Encounter Details Date Type Department Care Team (Latest Contact Info) Description 01/21/2019 Abstract [facility] Dental, Provider, DDS Social [...] Description 06/18/2025 2:00 PM EDT Office Visit [facility] [address] [place] [address] Sofia Montalvo MD [address] [place] [address] 06/22/2025 3:00 PM EDT Office Visit [facility] ADULT DENTAL [address] [place] [address] Socorro Johnson 10/27/2025 1:30 PM EST Office Visit [facility] [address] [place] [address] Celina Olivares OD [address] [place] [address] documented as of this encounter Visit Diagnoses Not on filedocumented in this encounter Care Teams Black And White Printer Operator Relationship Specialty Start Date End Date Sofia Montalvo MD [address] [place] [address] PCP - General Family Medicine 09/23/21 documented as of this encounter
--- OUTSIDE RECORDS SUMMARY | 2025-06-17 16:07 | XMS_ITS | Clinical Summary ---
Author Organization [employer] Address [address] [facility] [address] [place] [address] Care Team Providers Care Ecosystem Ecology Professor Name Role Phone Sofia Montalvo MD [...] for wheezing. 75 mL 3 024 Active Gas Relief Extra Strength 125 MG chewable tabletIndicatio ns:Bloating TAKE 1 TABLET BY MOUTH 4 TIMES A DAY IN THE MORNING, AT NOON, IN THE EVENING, AND AT BEDTIME NEEDED FOR GAS 60 tablet 1 024 Active naloxone (Narcan) 4 mg/0.1 mL nasal spray Administer 1 spray into affected nostril(s) if needed for opioid reversal or respiratory depression. Repeat in alternate nostril in 2-3 minutes if needed. Seek medical attention immediately even if patient responds. Active clotrimazole (Lotrimin) 1 % cream APPLY TOPICALLY TWICE DAILY IN THE MORNING AND AT BEDTIME NEEDED FOR RASH 30 g 2 Active polycarbophil (Fibercon) 625 MG tabletIndicatio ns:Chronic diarrhea Take 1 tablet (625 mg) by mouth 2 times daily. 60 tablet 11 024 2024 Active loperamide (Imodium) 2 MG capsuleIndicati ons:Chronic diarrhea Take 1 capsule (2 mg) by mouth if needed in the morning, at noon, in the evening, and at bedtime for diarrhea. 30 capsule 1 Active fluticasone (Flonase) 50 MCG/ACT nasal sprayIndication s:Chronic obstructive pulmonary disease, unspecified COPD type (CMS/HCC) USE 1 SPRAY IN EACH NOSTRIL TWICE DAILY 48 g Active polyethylene glycol, PEG, 3350 (Miralax) 17 [...] mouth at bedtime. 120 tablet 025 Active simvastatin (Zocor) 40 MG tabletIndicatio ns:Hypertriglyc eridemia TAKE 1 TABLET BY MOUTH AT BEDTIME 30 tablet 11 Active cetirizine (ZyrTEC) 10 MG tablet TAKE 1 TABLET BY MOUTH EVERYDAY AT NOON 90 tablet 3 025 Active acetaminophen (Tylenol 8 Hour) 650 MG ER tabletIndicatio ns:Lumbar disc disease Take 2 tablets (1,300 mg) by mouth every 8 (eight) hours if needed for mild pain. TAKE 1 TABLET BY MOUTH EVERY 8 HOURS NEEDED FOR MILD PAIN OR FOR MODERATE PAIN 60 tablet 3 025 Active cholecalciferol VITAMIN D (Vitamin D-3) 50 MCG (2000 UT) tablet TAKE 1 TABLET BY MOUTH EVERYDAY AT NOON 90 tablet 3 025 Active Ascorbic Acid (vitamin C) 250 MG tablet TAKE 1 TABLET BY MOUTH EVERY OTHER DAY IN THE MORNING 45 tablet 1 025 Active omeprazole (PriLOSEC) [address] capsuleIndicati ons:Acute gastritis without hemorrhage, unspecified gastritis type Take 1 capsule (40 mg) by mouth before breakfast and before evening meal. Do not crush or chew. 60 capsule 3 025 2025 Active hydrocortisone (Anusol-HC) 2.5 % rectal creamIndication s:Sebaceous cyst Insert into the rectum 2 times daily. 28 g 1 025 Active lidocaine (Xylocaine) 5 % ointmentIndicat ions:Acute pain of left knee Apply topically if needed for mild pain. 30 g 2 025 2025 Active clonazePAM (KlonoPIN) 0.5 MG tabletIndicatio ns:Mixed anxiety and depressive disorder Take 1 tablet (0.5 mg) by mouth Once per day for 28 days. 28 tablet Active dicyclomine (Bentyl) 10 MG capsule Take 10 mg by mouth 3 times daily. Active glucose blood ([employer]uch Ultra Test) test strip 1 each by Other route Once per day. Active busPIRone (Buspar) 10 MG tabletIndicatio ns:Mixed anxiety and depressive disorder Take 1.5 tablets (15 mg) by mouth 2 times daily. 90 tablet 1 025 2024 Active doxepin (SINEquan) 50 MG capsuleIndicati ons:Mixed anxiety and depressive disorder Take 1 capsule (50 mg) by mouth at bedtime. 30 capsule 1 025 2024 Active escitalopram (Lexapro) 10 MG tabletIndicatio ns:Mixed anxiety and depressive disorder Take 1 tablet (10 mg) by mouth in the morning. 30 tablet 1 025 2024 Active zolpidem (Ambien) 5 MG tabletIndicatio ns:Mixed anxiety and depressive disorder Take 1 tablet (5 mg) by mouth if needed at bedtime for sleep. 30 tablet 025 Active UNABLE TO FIND MIXTURE ADDITIVE Med Name: Hydromorphone 8 mg/mL, Baclofen 600 mcg/mL, Bupivacaine 40 mg/mL solution Continuous infusion via home implanted intrathecal pump Active metFORMIN (Glucophage) 500 MG tabletIndicatio ns:Type 2 diabetes mellitus with other specified complication, unspecified whether longterm insulin use (CMS/[facility]) Take 1 tablet (500 mg) by mouth with breakfast. 90 tablet 1 025 Active glucose blood test stripIndication s:Type 2 diabetes mellitus with other specified complication, unspecified whether longterm insulin use (CMS/HCC) Use once daily 100 each 12 025 2025 Active ketoconazole (NIZOral) 2 % shampooIndicati ons:Seborrheic dermatitis of scalp APPLY TO SCALP AND LEAVE ON FOR 5 MINUTES THEN RINSE OFF TWICE A WEEK 120 mL 1 025 Active albuterol (Ventolin HFA) 108 (90 Base) MCG/ACT inhalerIndicati ons:Mild intermittent asthma without complication INHALE 2 PUFFS BY MOUTH FOUR TIMES DAILY 18 g 2 025 Active ferrous gluconate (Ferate) 240 (27 Fe) MG tabletIndicatio ns:Iron deficiency anemia, unspecified iron deficiency anemia type TAKE 1 TABLET BY MOUTH EVERY OTHER DAY IN THE MORNING 15 tablet 5 025 Active bacitracin 500 UNIT/GM ointmentIndicat ions:Excoriatio n Apply topically 2 times daily. 14 g 025 Active losartan (Cozaar) 50 MG tablet Take 50 mg by mouth Once per day. Active albuterol (Ventolin HFA) 108 (90 Base) MCG/ACT inhalerIndicati ons:Mild intermittent asthma without complication INHALE 2 PUFFS BY MOUTH FOUR TIMES DAILY 18 g 2 024 2024 Discontinued atenolol (Tenormin) 50 MG tabletIndicatio ns:Essential hypertension TAKE 1 TABLET BY MOUTH EVERY EVENING 30 tablet 5 025 2024 Discontinued ferrous gluconate (Ferate) 240 (27 Fe) MG tabletIndicatio ns:Iron deficiency anemia, unspecified iron deficiency anemia type TAKE 1 TABLET BY MOUTH EVERY OTHER DAY IN THE MORNING 15 tablet 5 025 2024 Discontinued(R eorder (will not trigger notification to Pharmacy)) losartan (Cozaar) 100 MG tabletIndicatio ns:Essential hypertension TAKE 1 TABLET BY MOUTH EVERYDAY AT NOON 90 tablet 1 025 2024 Discontinued(D ose adjustment) chlorthalidone (Hygroton) 50 MG tabletIndicatio ns:Essential hypertension TAKE 1 TABLET BY MOUTH EVERYDAY AT NOON 30 tablet 5 025 2024 Discontinued(S top taking at discharge) atenolol (Tenormin) 50 MG tabletIndicatio ns:Essential hypertension TAKE 1 TABLET BY MOUTH EVERY EVENING 30 tablet 5 025 2024 Discontinued(S top taking at discharge) Active Problems Problem Noted Date Diagnosed Date Acute pain of left knee 03/11/2025 Assessment & Plan (03/11/2025 5:09 PM EDT): X-ray ordered patient will be contacted with results Orthopedics referral in Acute gastritis 03/11/2025 Assessment & Plan (03/11/2025 5:08 PM EDT): I advise patient to avoid NSAIDs, spicy and acid food, I advise to eat at the same time every day, I advise to elevate the head of the bed and take medications as prescribe I change her pantoprazole to omeprazole 40 mg twice daily Continue to follow-up with gastroenterology Urinary incontinence 03/11/2025 Assessment & Plan (03/11/2025 5:08 PM EDT): Pull ups size large will be prescribed Fecal incontinence 03/11/2025 Assessment & Plan (03/11/2025 5:08 PM EDT): Pull-ups size/will be prescribed Swelling 03/11/2025 Assessment & Plan (03/11/2025 5:09 PM EDT): Blood work ordered patient will be contacted with results Dental caries 12/17/2024 Dental calculus 12/17/2024 Folliculitis [...] 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 Also patient with chronic allergic rhinitis and asthma Hypertriglyceridemia 01/17/2024 Stage 3a chronic kidney disease 01/17/2024 Assessment & Plan (03/11/2025 5:08 PM EDT): I will refer patient to nephrology Assessment & Plan (01/18/2024 2:07 PM EDT): [...] Lumbar disc disease 07/02/2018 Assessment & Plan (03/11/2025 5:12 PM EDT): Patient will be referred for elective wheelchair evaluation Assessment & Plan (06/30/2024 2:09 PM EDT): [...] 04/05/2012 Essential hypertension 04/05/2012 Assessment & Plan (03/11/2025 5:11 PM EDT): Patient in pain and upset most likely this is why blood pressure is on the higher side I advised to take her medication every day without missing any dose Advised low-sodium diet Assessment & Plan (06/30/2024 2:07 PM EDT): [...] be set up for patient Arthropathy 04/05/2012 Assessment & Plan (03/11/2025 5:12 PM EDT): Patient will be referred for electric wheelchair evaluation Asthma 04/05/2012 Disorder of skeletal muscle 04/05/2012 [...] organization. Date Type Department Care Team Description 06/17/2025 Telephone [facility] [address] [place] [address] Sofia Montalvo MD Chart Prep 06/05/2025 1:15 PM EDT Office Visit [facility] [address] [place] [address] Tyrell Madrigal MD Ecchymosis (Primary Dx); Excoriation; Inflamed skin tag 06/05/2025 Travel 05/29/2025 Refill [facility] [address] [place] [address] Sofia Montalvo MD Iron deficiency anemia, unspecified iron deficiency anemia type 05/27/2025 Refill [facility] [address] [place] [address] Sofia Montalvo MD Essential hypertension 05/26/2025 Telephone [facility] [address] [place] [address] Sofia Montalvo MD Hospital Follow-up; Nurse Triage 05/22/2025 Refill [facility] [address] [place] [address] Sofia Montalvo MD Mild intermittent asthma without complication 05/14/2025 Orders Only [facility] [address] [place] [address] Sofai Montalvo MD 05/14/2025 Telephone [facility] [address] [place] [address] Crystal Head RN BASKET HAND WEAVER Tier ? 05/07/2025 Refill [facility] [address] [place] [address] Sofia Montalvo MD Seborrheic dermatitis of scalp 04/30/2025 Refill [facility] [address] [place] [address] Sofia Montalvo MD Essential hypertension 04/29/2025 Orders Only [facility] [address] [place] [address] Sofia Montalvo MD Type 2 diabetes mellitus with other specified complication, unspecified whether longterm insulin use ([facility]) 04/29/2025 Refill [facility] [address] [place] [address] Sofia Montalvo MD Mixed anxiety and depressive disorder 04/28/2025 Travel 04/27/2025 Refill [facility] [address] [place] [address] Sofia Montalvo MD Mixed anxiety and depressive disorder 03/31/2025 Refill [facility] [address] [place] [address] Sofia Montalvo MD Type 2 diabetes mellitus with other specified complication, unspecified whether intermodal customer service insulin use ([facility]) from Last 3 Months Immunizations Immunization Administration Dates Next Due Hep B, adult [...] Not Answered Alcohol Use Standard Drinks/Week Comments Not Currently 0 (1 standard drink = 0.6 oz [...] Sign Reading Time Taken Comments Blood Pressure 172/74 06/05/2025 1:30 PM EDT Pulse 95 06/05/2025 1:30 PM EDT Temperature 37.2 C (98.9 F) 06/05/2025 1:30 PM EDT Respiratory Rate 16 06/05/2025 1:30 PM EDT Oxygen Saturation 95% 06/05/2025 1:30 PM EDT Inhaled Oxygen Concentration - - Weight 77.9 kg (171 lb 12.8 oz) 06/05/2025 1:30 PM EDT Height 157.5 cm (5' 2 ) 06/05/2025 1:30 PM EDT Body Mass Index 31.42 06/05/2025 1:30 PM EDT Plan of Treatment Upcoming Encounters Date Type Department Care Team (Late st Contact Info) Description 06/18/2025 2:00 PM EDT Office Visit [facility] [address] [place] [address] Sofia Montalvo MD [address] [place] [address] 06/22/2025 3:00 PM EDT Office Visit [facility] ADULT DENTAL [address] [place] [address] Socorro Johnson 10/27/2025 1:30 PM EST Office Visit [facility] OPTOMETRY [address] [place] [address] Celina Olivares, OD [address] [place] [address] Health Maintenance Due Date Last Done Comments CT Colonography 1959 Dental X-Ray: Bitewings 1959 Dental X-Ray: Full Mouth 1959 FIT DNA/Cologuard 1959 FIT 1959 FOBT 1959 Sigmoidoscopy 1959 Diabetes: Foot Exam 1969 Hepatitis C Screening 1977 Lipid Panel 12/23/2024 12/24/2023, 07/10, 09/27/2021, Additional history exists Diabetes: Urine Protein Screening 02/17/2025 02/18/2024, 08/07/2022, 09/27/2021, Additional history exists COVID-19 Vaccine ( season) 2025 10/05/2021, 02/11/2021, 01/14/2021 Influenza Vaccine (#1) 2025 , 07/27/2022, 07/28/2021, Additional history exists Depression Monitoring 06/17/2025 12/15/2024, 025 Diabetes: Hemoglobin A1C 06/17/2025 025, 06/30/2024, 01/17/2024, Additional history exists Dental Oral Exam 06/20/2025 12/17/2024, 09/11/2022 Dental Prophylaxis 06/20/2025 12/17/2024, 09/11/2022 Mammogram 09/12/2025 09/12/2024, 06/09, 06/21/2022, Additional history exists Alcohol/Substance Use Screening 12/15/2025 12/15/2024 SDOH Screening 12/15/2025 12/15/2024 Tobacco Screening 03/11/2026 03/11/2025 Eye Exam 09/09/2026 09/09/2024, 12/2023, 09/09/2024, Additional [...] Name Priority Date/Time Associated Diagnosis Comments XR KNEE 4+ VIEWS LEFT Routine 03/17/2025 2:50 PM EDT Acute pain of left knee PROPHYLAXIS - ADULT Routine 12/17/2024 1 1:00 AM EDT Dental calculus Dental plaque PERIODIC ORAL EVALUATION - ESTABLISHED PATIENT Routine 12/17/2024 11:00 AM EDT POCT GLYCATED HEMOGLOBIN, TOTAL Routine 12/15/2024 1:56 PM EDT Type 2 diabetes mellitus without complication, without long-term current use of insulin ([facility]) BI MAMMOGRAM SCREENING TOMOSYNTHESIS BILATERAL Routine 09/12/2024 1:15 PM EST THINPREP IMAGING PAP AND HPV MRNA E6/E7 WITH REFLEX TO HPV 16,18/45 Routine 07/30/2024 2:16 PM EDT CREATININE, RANDOM URINE Routine 02/18/2024 1:28 PM EDT LIPID PANEL, STANDARD Routine 12/24/2023 12:56 PM EDT Essential hypertension HM COLONOSCOPY Routine 04/04/2023 from Last 3 Months or Most Recently Relevant to Health Maintenance Results * XR Knee 4+ Views Left (03/17/2025 2:50 PM EDT) Anatomical Region Laterality Modality Lower Extremities, Knee Left Radiogra phic Imaging 03/17/2025 2:50 PM EDT Narrative 03/18/2025 7:56 AM EDT [address] [address] XRay Report Signed Patient: Kirstin Arcos MR#: [id number] : 1960 Acct:[id number] Age/Sex: 64 / F ADM Date: 03/17/25 Loc: [facility] Attending Dr: Sofia Art MD Ordering Physician: Sofia Montalvo MD Date of Service: 03/17/25 Procedure(s): XR knee LT 4V Accession Number(s): [id number] cc: Sofia Montalvo MD EXAMINATION: XR KNEE 4 OR MORE VIEWS LEFT HISTORY: pain COMPARISON: Correlation is made with the standing AP view of the left knee dated 09/11/2016. FINDINGS: Four views of the left knee are submitted. Osseous mineralization is normal. There is no fracture or dislocation. There is mild osteoarthritis of the medial compartment, with joint space narrowing and osteophyte formation. The soft tissues are unremarkable. There is no joint effusion. XR/XR knee LT 4V IMPRESSION: Mild osteoarthritis of the medial compartment. Electronically signed by: Sunil Mohan MD 03/18/2025 07:53 AM EDT Dictated By: Sunil Mohan MD Signed By: <Electronically signed by Sunil Mohan MD in OV> 03/18/25 0753 DD/ 1450 TD/TT: 03/17/25 1510 Financial Recruiter: Procedure Note Donotmagyinterpreter, Image - 03/18/[address] [address] XRay Report Signed Patient: Kirstin ArcosMR#: M [id number] : 9Acct:[id number] Age/Sex: 64 / FADM Date: 03/17/25 Loc: [facility] Attending Dr: Sofia Art MD Ordering Physician: oSfia Montalvo MD Date of Service: 03/17/25 Procedure(s): XR knee LT 4V Accession Number(s): [id number] cc: Sofia Montalvo MD EXAMINATION: XR KNEE 4 OR MORE VIEWS LEFT HISTORY: pain COMPARISON: Correlation is made with the standing AP view of the left knee dated 09/11/2016. FINDINGS: Four views of the left knee are submitted. Osseous mineralization is normal. There is no fracture or dislocation. There is mild osteoarthritis of the medial compartment, with joint space narrowing and osteophyte formation. The soft tissues are unremarkable. There is no joint effusion. XR/XR knee LT 4V IMPRESSION: Mild osteoarthritis of the medial compartment. Electronically signed by: Sunil Mohan MD 03/18/2025 07:53 AM EDT Dictated By: Sunil Mohan MD Signed By: <Electronically signed by Sunil Mohan MD in OV> 03/18/25 0753 DD/ 1450 TD/TT: 03/17/25 1510 Financial Recruiter: us Sofia Art MD IMG XR PROCEDURES Fin al Result * (ABNORMAL) POCT HGB A1C (12/15/2024 1:56 PM EDT) Hemoglobin A1C 6.2(A) 4.0 - 6.0 % QC Media Lot # [id number] Lot# Expiration Date Blood 12/15/2024 1:56 PM EDT Sofia Art MD POINT OF CARE TEST EN TER/EDIT ORDERABLES Final Result * BI Mammogram Screening Tomosynthesis Bilateral (09/12/2024 1:15 PM EST) Anatomical Region Laterality Modality Breast Bilateral Mammography 09/12/2024 1:15 PM EST Narrative 09/18/2024 1:29 PM EST [facility] [address] [place] [address] Mammography Report Signed Patient: Norma Arcos MR#: [id number] : 1960 Acct:[id number] Age/Sex: 64 / F ADM Date: 09/12/24 Loc: HO.MAMMO Attending Dr: Aryan Estrella MD Ordering Physician: Aryan Estrella MD Results: 1Negativ e Date of Service: 09/12/24 Follow Up: 1 Year From Orig inal Mammogram Procedure(s): MM tomosynthesis screening BI Accession Number(s): [id number] cc: Sofia Montalvo MD; Aryan Estrella MD [...] 09/18/24 1325 DD/ 1315 TD/TT: 09/12/24 1338 Financial Recruiter: Procedure Note Donotuseinterpreter, Image - 09/19/2024 [facility] [address] [place] [address] Mammography Report Signed Patient: Norma ArcosMR#: M [id number] : 9Acct:[id number] Age/Sex: 64 / FADM Date: 09/12/24 Loc: HO.MAMMO Attending Dr: Aryan Estrella MD Ordering Physician: Aryan Estrella MDResults: 1Negativ e Date of Service: 09/12/24Follow Up: 1 Year From Orig inal Mammogram Procedure(s): MM tomosynthesis screening BI Accession Number(s): [id number] cc: Sofia Montalvo MD; Aryan Estrella MD [...] 09/18/24 1325 DD/ 1315 TD/TT: 09/12/24 1338 Financial Recruiter: [facility] External Provider IMG BI PROCEDURES Edited Result - Final * ThinPrep Imaging Pap and HPV mRNA E6/E7 with Reflex to HPV 16,18/45 (07/30/2024 2:16 PM EDT) HPV 16 RNA [facility] HPV 18/45 RNA [facility] HPV nRNA E6/E7 Not Detected Not Detected [facility] Comment:Methodology: Transcr iption-Mediated AmplificationThis assay detects E6/E7 viral messenger RNA (mRNA) from 14high-risk HPV types (16,18,31,33,35,39,45,51,52,56,58,59,66,68).Cervical sources are required for HPV testing.If a vaginal source from a patient who has had atotal hysterectomy with removal of cervix wassubmitted, please contact the testing laboratoryfor alternative testing options.For additional information, please refer [email or web address](This link if provided for information/educational purposes only.)THIS TEST WAS PERFORMED AT:[employer] [place] [phone] ALBERT MD SOURCE: SEE NOTE [facility] Comment:Cervix Report Status: [facility] Clinical Information: SEE NOTE [facility] Comment:Postmenopausal LMP: SEE NOTE [facility] Comment:PM Prev. PAP: SEE NOTE [facility] Comment:2022 Prev. BX: SEE NOTE [facility] Comment:NONE GIVEN Statement Of Adequacy: SEE NOTE [facility] Comment:Satisfactory for hailey luation.Endocervical/transformation zone componentpresent. General Categorization: [facility] Interpretation/Result: SEE NOTE [facility] Comment:Cytology Results: Ne gative for intraepitheliallesion or malignancy. Cytology Comment SEE NOTE [facility] Comment:This Pap test has be en evaluated with computerassisted technology. Metallurgy Teacher: SEE NOTE [facility] Comment:RXB, CT(ASCP)CT scre ening location: [place] [address] Review Metallurgy Teacher: SEE NOTE [facility] Comment:KF, CT(ASCP)CT scree omari location: [place] [address] Pathologist TNP [facility] PAP Infection TNP [facility] See Note SEE NOTE [facility] Comment:EXPLANATORY NOTE:The Pap is a screening test for cervical cancer. It isnot a diagnostic test and is subject to false negativeand false positive results. It is most reliable when asatisfactory sample, regularly obtained, is submittedwith relevant clinical findings and history, and whenthe Pap result is evaluated along with historic andcurrent clinical information. 07/30/2024 2:1 6 PM EDT 07/30/2024 3:50 PM EDT Narrative [facility] - 08/04/2024 3:28 PM EDT SEE SCANNED RESULTS IN EMRWas previous PAP abnormal? YesIf PAP abnormal, please specify: Ascus,HPV +Clinical Information: routineCollection Date: 07/30/24igh risk HPV with 16 18 genotyping? YReflex HPV any abnormal diagnosis? YReflex HPV if ASCUS only? NHigh Risk HPV (any diagnosis)? YLMP: postmenopausalDate of previous PAP erformed by: : cervical Generic External Data Provider LAB PATHOLOGY ORD ERABLES Final Result Performing Organization Address [facility]/ZIP Co de Phone Number [facility] [address] [place] [phone] * Creatinine, Random Urine (02/18/2024 1:28 PM EDT) Creatinine, Urine 35.20 mg/dL [facility] 02/18/2024 1:28 PM EDT 02/18/2024 1:35 PM EDT Generic External Data Provider LAB URINE ORDERAB LES Final Result Performing Organization Address [facility] Co de Phone Number [facility] [address] [place] [phone] * (ABNORMAL) Lipid Panel, Standard (12/24/2023 12:56 PM EDT) Triglycerides 344(H) <150 mg/dL [facility] Comment:Desirable Triglyceri de: less than 150 mg/dLBorderline High Triglyceride 150-199 mg/dLHigh Triglyceride: 200-499 mg/dLVery High Triglyceride: greater than or equal to 5OO mg/dL Cholesterol 186 <200 mg/dL [facility] Comment:Desirable Cholestero l: less than 200 mg/dLBorderline High Cholesterol: 200-239 mg/dLHigh Cholesterol: greater than 239 mg/dL LDL Cholesterol Calculated 52 <100 mg/dL [facility] Comment:Desirable LDL: less than 100 mg/dLNear Optimal/Above Optimal LDL: 110- 129 mg/dLBorderline High LDL: 130-159 mg/dLHigh LDL: 160-189 mg/dLVery High LDL: greater than or equal to 190 mg/dL HDL Cholesterol 66 >40 mg/dL [facility] Comment:Desirable HDL: great er than 40 mg/dL Note: This HDL assay may give artificially low results in patients with liver disease. Blood Venous blood specimen / Unknown 12/24/2023 12:56 PM EDT 12/24/2023 1:06 PM EDT us Sofia Art MD LAB BLOOD ORDERABLES Final Result [facility] [address] [place] [address] [phone] * Colonoscopy (04/04/2023) Colonoscopy Normal Normal us Sherri Britton MD HEALTH MAINTENANCE Final Result from Last 3 Months or Most Recently Relevant to Health Maintenance [place] [id number] [employer] OPTIONS (O D-SNP) [facility] ST[facility] ADULT Care Teams Ecosystem Ecology Professor Relationship Specialty Start Date End Date Sofia Montalvo MD [address] [place] [address] PCP - General Family Medicine 09/23/21
--- OUTSIDE RECORDS SUMMARY | 2025-06-17 16:07 | XMS_ITS | Encounter Summary ---
Author Organization [email or web address] Address [address] [facility] 7t [place] [address] Care Team Providers Care Web Coordinator Name Role Phone Sofia Montalvo MD Primary Care Provide r Encounter Details Date Type Department Care Team ([facility] Contact Info) Description 07/06/2023 Orders Only [facility] MEDICINE [address] [place] [address] [phone] ProviderAlli MD Social History Tobacco Use Types [...] Description 06/18/2025 2:00 PM EDT Office Visit [facility] MEDICINE [address] [place] [address] [phone] Sofia Montalvo MD [address] [place] [address] [phone] 06/22/2025 3:00 PM EDT Office Visit [facility] ADULT DENTAL [address] [place] [address] [phone] JohnsonSocorro moeller 10/27/2025 1:30 PM EST Office Visit [facility] OPTOMETRY [address] [place], [place] [phone] Celina Olivares, OD [address] [place] [address] documented as of this encounter Procedures Procedure Name Priority Date/Time Associated Diagnosis Comments BIOPSY CERVIX Routine 04/19/2021 documented in this encounter Results * Biopsy cervix (04/19/2021) us Historical Provider MD IN CLINIC/BEDSIDE ORDERAB LES Final Result documented in this encounter Visit Diagnoses Not on filedocumented in this encounter Care Teams Web Coordinator Relationship Specialty Start Date End Date Sofia Montalvo MD [address] [place], [place] [phone] PCP - General Family Medicine 09/23/21 documented as of this encounter
--- OUTSIDE RECORDS SUMMARY | 2025-06-17 16:07 | XMS_ITS | Encounter Summary ---
Author Organization [employer] Address [address] [facility] [address] 7t [place] [address] Care Team Providers Care Line Up Examiner Name Role Phone Sofia Montalvo MD Primary Care Provide r Encounter Details Date Type Department Care Team ([facility] st Contact Info) Description 05/14/2025 Orders Only [facility] MEDICINE [address] [place], [place] [phone] Sofia Montalvo MD [address] [place], [place] [phone] Social History Tobacco Use Types Packs/Day Years Used Date Smoking Tobacco: Every Day Cigarettes 0.3 1 Passive Smoke Exposure: Current Smokeless Tobacco: Never Alcohol Use Standard Drinks/Week Comments Not Currently [...] the past 12 months, has t he [employer], gas, oil or water company threatened to [...] Description 06/18/2025 2:00 PM EDT Office Visit [facility] MEDICINE [address] [place] [address] Sofia Montalvo MD [address] [place] [address] 06/22/2025 3:00 PM EDT Office Visit [facility] ADULT DENTAL [address] [place] [address] Socorro Johnson 10/27/2025 1:30 PM EST Office Visit [facility] OPTOMETRY [address] [place] [address] Celina Olivares OD [address] [place] [address] documented as of this encounter Visit Diagnoses Not on filedocumented in this encounter Additional Health Concerns Assessment Noted Time PHQ-9 Depression Total Score: 15 025 1:50 PM EDT documented as of this encounter Care Teams Line Up Examiner Relationship Specialty Start Date End Date Sofia Montalvo MD [address] [place] [address] PCP - General Family Medicine 09/23/21 documented as of this encounter
--- OUTSIDE RECORDS SUMMARY | 2025-06-17 16:07 | XMS_ITS | Encounter Summary ---
Author Organization [employer] Address [address] [facility] [address] 7t [place] [address] Care Team Providers Care Color Maker Formulator Name Role Phone Sofia Montalvo MD Primary Care Provide r Reason for Visit * Reason Onset Date Comments Durable Medical Equipment 01/21/2025 Encounter Details Date Type Department Care Team ([facility] [address] Contact Info) Description 01/21/2025 Telephone [facility] MEDICINE [address] [place], [place] [phone] Sofia Montalvo MD [address] [place], [place] [phone] Durable Medical Equipment Social History Tobacco Use [...] Description 06/18/2025 2:00 PM EDT Office Visit [facility] MEDICINE [address] [place] [address] Sofia Montalvo MD [address] [place] [address] 06/22/2025 3:00 PM EDT Office Visit [facility] ADULT DENTAL [address] [place] [address] Socorro Johnson 10/27/2025 1:30 PM EST Office Visit [facility] OPTOMETRY [address] [place] [address] Celina Olivares, OD [address] [place] [address] documented as of this encounter Visit Diagnoses Not on filedocumented in this encounter Additional Health Concerns Assessment Noted Time PHQ-9 Depression Total Score: 15 025 1:50 PM EDT documented as of this encounter Care Teams Color Maker Formulator Relationship Specialty Start Date End Date Sofia Montalvo MD [address] [place] [address] PCP - General Family Medicine 09/23/21 documented as of this encounter
--- OUTSIDE RECORDS SUMMARY | 2025-06-17 16:07 | XMS_ITS | Encounter Summary ---
Author Organization [employer] Address [address] [facility] [address] 7[address] [place] [address] Care Team Providers Care Drop Wire Operator Name Role Phone Sofia Montalvo MD Primary Care Provide r Encounter Details Date Type Department Care Team ([facility] st Contact Info) Description 12/09/2024 Telephone [facility] MEDICINE [address] [place], [place] [phone] Sofia Montalvo MD [address] [place], [place] [phone] Social History Tobacco Use Types Packs/Day Years [...] t he electric, gas, oil or water [employer] threatened to shut off services in your [...] Description 06/18/2025 2:00 PM EDT Office Visit [facility] MEDICINE [address] [place] [address] Sofia Montalvo MD [address] [place] [address] 06/22/2025 3:00 PM EDT Office Visit [facility] ADULT DENTAL [address] [place] [address] Socorro Johnson 10/27/2025 1:30 PM EST Office Visit [facility] OPTOMETRY [address] [place] [address] Celina Olivares, OD [address] [place] [address] documented as of this encounter Visit Diagnoses Not on filedocumented in this encounter Care Teams Drop Wire Operator Relationship Specialty Start Date End Date Sofia Montalvo MD [address] [place] [address] PCP - General Family Medicine 09/23/21 documented as of this encounter
--- OUTSIDE RECORDS SUMMARY | 2025-06-17 16:07 | XMS_ITS | Encounter Summary ---
Author Organization [employer] Address [address] [facility] [address] 7t [place] [address] Care Team Providers Care Installer Inspector Final Name Role Phone Sofia Montalvo MD Primary Care Provide r Encounter Details Date Type Department Care Team ([facility] st Contact Info) Description 03/13/2024 Telephone [facility] 230 [place], [place] [phone] Sofia Montalvo MD [address] [place], [place] [phone] Social History Tobacco Use Types Packs/Day Years [...] t he electric, gas, oil or water [employer] threatened to shut off services in your [...] Description 06/18/2025 2:00 PM EDT Office Visit [facility] [address] [place] [address] Sofia Montalvo MD [address] [place] [address] 06/22/2025 3:00 PM EDT Office Visit [facility] ADULT DENTAL [address] [place] [address] Socorro Johnson 10/27/2025 1:30 PM EST Office Visit [facility] OPTOMETRY [address] [place] [address] Celina Olivares, OD [address] [place] [address] documented as of this encounter Visit Diagnoses Not on filedocumented in this encounter Care Teams Installer Inspector Final Relationship Specialty Start Date End Date Sofia Montalvo MD [address] [place] [address] PCP - General Family Medicine 09/23/21 documented as of this encounter
--- OUTSIDE RECORDS SUMMARY | 2025-06-17 16:07 | XMS_ITS | Encounter Summary ---
Author Organization [employer] Address [address] [facility] [address] 7[address] [place] [address] Care Team Providers Care Electronics Utility Worker Name Role Phone Sofia Montalvo MD Primary Care Provide r Reason for Visit * Reason Onset Date Comments Chart Prep 06/17/2025 Encounter Details Date Type Department Care Team ([facility] Contact Info) Description 06/17/[address] [facility] MEDICINE [address] [place], [place] [phone] Sofia Montalvo MD [address] [place], [place] [phone] Chart Prep Social History Tobacco Use Types Packs/Day Years [...] is your housing situation today? I have jsoé landry 12/15/[address] you [...] encounter Miscellaneous Notes * Telephone Encounter - Kayla Adam [place] - 06/17/2025 2:05 PM EDT Chart Prep Labs: done Images: done Referrals: appointment pending [facility], [facility] Ortho Note-05/04/25 Vaccines due: Covid and Flu Screenings: foot exam Overdue care gaps: A1c, Glucose, PHQ-9, and KRISTA-7 documented in this encounter Plan of Treatment Upcoming Encounters Date Type Department Care Team (Late st Contact Info) Description 06/18/2025 2:00 PM EDT Office Visit [facility] MEDICINE [address] [place] [phone] Sofia Montalvo MD [address] [place] [address] 06/22/2025 3:00 PM EDT Office Visit [facility] ADULT DENTAL [address] [place] [address] Socorro Johnson 10/27/2025 1:30 PM EST Office Visit [facility] OPTOMETRY [address] [place], [place] [phone] Celina Olivares, OD [address] [place] [address] documented as of this encounter Visit Diagnoses Not on filedocumented in this encounter Additional Health Concerns Assessment Noted Time PHQ-9 Depression Total Score: 15 025 1:50 PM EDT documented as of this encounter Care Teams Electronics Utility Worker Relationship Specialty Start Date End Date Sofia Montalvo MD [address] [place], [place] [phone] PCP - General Family Medicine 09/23/21 documented as of this encounter
--- OUTSIDE RECORDS SUMMARY | 2025-06-17 16:07 | XMS_ITS | Encounter Summary ---
Author Organization [employer] Address [address] [facility] [address] [place] [address] Care Team Providers Care Morning News Producer Name Role Phone Sofia Montalvo MD Primary Care Provide r Reason for Visit * Reason Comments Med Refill Encounter Details Date Type Department Care Team ([facility] Contact Info) Description 08/24/2023 Refill [facility] MEDICINE [address] [place], [place] [phone] Sofia Montalvo MD [address] [place], [place] [phone] Other chronic pain Social History Tobacco Use [...] Description 06/18/2025 2:00 PM EDT Office Visit [facility] MEDICINE [address] [place] [address] Sofia Montalvo MD [address] [place] [address] 06/22/2025 3:00 PM EDT Office Visit [facility] ADULT DENTAL [address] [place] [address] Socorro Johnson 10/27/2025 1:30 PM EST Office Visit [facility] OPTOMETRY [address] [place] [address] Marshall, Celina, OD 230 [place] [address] documented as of this encounter Visit Diagnoses Diagnosis Other chronic pain documented in this encounter Care Teams Morning News Producer Relationship Specialty Start Date End Date Sofia Montalvo MD [address] [place] [address] PCP - General Family Medicine 09/23/21 documented as of this encounter
--- OUTSIDE RECORDS SUMMARY | 2025-06-17 16:07 | XMS_ITS | Encounter Summary ---
Author Organization [employer] Address [address] [facility] [address] [place] [address] Care Team Providers Care Zyglo Inspector Name Role Phone Sofia Montalvo MD Primary Care Provide r Reason for Visit * Reason Comments Med Refill Encounter Details Date Type Department Care Team ([facility] st Contact Info) Description 02/25/2024 Refill [facility] MEDICINE [address] [place], [place] [phone] Sofia Montalvo MD [address] [place], [place] [phone] Lumbar disc disease Social History Tobacco Use [...] Description 06/18/2025 2:00 PM EDT Office Visit [facility] MEDICINE [address] [place] [address] Sofia Montalvo MD [address] [place] [address] 06/22/2025 3:00 PM EDT Office Visit [facility] ADULT DENTAL [address] [place] [address] Socorro Johnson 10/27/2025 1:30 PM EST Office Visit [facility] OPTOMETRY [address] [place] [address] Marshall, Celina, OD [address] [place] [address] documented as of this encounter Visit Diagnoses Diagnosis Lumbar disc disease Other and unspecified disc disorder of lumbar region documented in this encounter Care Teams Zyglo Inspector Relationship Specialty Start Date End Date Sofia Montalvo MD [address] [place] [address] PCP - General Family Medicine 09/23/21 documented as of this encounter
--- OUTSIDE RECORDS SUMMARY | 2025-06-17 16:07 | XMS_ITS | Encounter Summary ---
Author Organization [employer] Address [address] [facility] [address]t [place] [address] Care Team Providers Care Client Integration Manager Name Role Phone Sofia Montalvo MD Primary Care Provide r Reason for Visit * Reason Comments Med Refill Encounter Details Date Type Department Care Team ([facility] st Contact Info) Description 02/18/2024 Refill [facility] MEDICINE [address] [place], [place] [phone] Sofia Montalvo MD [address] [place], [place] [phone] Chronic diarrhea Social History Tobacco Use Types [...] Description 06/18/2025 2:00 PM EDT Office Visit [facility] MEDICINE [address] [place] [address] Sofia Montalvo MD [address] [place] [address] 06/22/2025 3:00 PM EDT Office Visit [facility] ADULT DENTAL [address] [place] [address] Socorro Johnson 10/27/2025 1:30 PM EST Office Visit [facility] OPTOMETRY [address] [place] [address] Celina Olivares, OD [address] [place] [address] documented as of this encounter Visit Diagnoses Diagnosis Chronic diarrhea Diarrhea documented in this encounter Care Teams Client Integration Manager Relationship Specialty Start Date End Date Sofia Montalvo MD [address] [place] [address] PCP - General Family Medicine 09/23/21 documented as of this encounter
--- OUTSIDE RECORDS SUMMARY | 2025-06-17 16:07 | XMS_ITS | Encounter Summary ---
Author Organization [employer] Address [address] [facility] 7t [place] [address] Care Team Providers Care Activity Coordinator Name Role Phone Sofia Montalvo MD Primary Care Provide r Encounter Details Date Type Department Care Team ([facility] Contact Info) Description 07/06/[address] [facility] MEDICINE [address] [place], [place] [phone] Dayana Erazo Social History Tobacco Use Types [...] Upcoming Encounters Date Type Department Care Team ([facility] Contact Info) Description 06/18/2025 2:00 PM EDT Office Visit [facility] MEDICINE [address] [place], [place] [phone] Sofia Montalvo MD [address] [place], [place] [phone] 06/22/2025 3:00 PM EDT Office Visit [facility] ADULT DENTAL [address] [place], [place] [phone] Jarvis Johnsonsa 10/27/2025 1:30 PM EST Office Visit [facility] OPTOMETRY [address] [place], [place] [phone] Celina Olivares, OD [address] [place] [address] documented as of this encounter Procedures Procedure [...] lesion or malignancy, Other HPV Detected Historical [facility] Final Result * Biopsy cervix (06/07/2021) Historical Provider IN CLINIC/BEDSIDE ORDERAB LES Final Result documented in this encounter Visit Diagnoses Not on filedocumented in this encounter Care Teams Activity Coordinator Relationship Specialty Start Date End Date Sofia Montalvo MD [address] [place], [place] [phone] PCP - General Family Medicine 09/23/21 documented as of this encounter
--- OUTSIDE RECORDS SUMMARY | 2025-06-17 16:07 | XMS_ITS | Encounter Summary ---
Author Organization [employer] Address [address] [facility] [address] [facility] [facility] [address] [place] [address] Care Team Providers Care Humidifier Operator Name Role Phone Sofia Montalvo MD Primary Care Provide r Reason for Referral * Consultation (Routine) - Pending Review Specialty Diagnoses / Procedures Referred By Contshahida t Referred To Contact Pharmacy Diagnoses Essential hypertension Alaina Clark MD [address] [place] [address] Phone: tel: fax: Referral ID Status Reason Start Date Expiration Date Visits Requested Visits Authorized [id number] Pending Review Continuity of Care 03/09/2025 03/09/2026 6 6 Encounter Details Date Type Department Care Team ([facility] st Contact Info) Description 03/06/2025 Orders Only [facility] MEDICINE [address] [place], [place] [phone] Alaina Clark MD [address] [place], [place] [phone] Essential hypertension (Primary Dx) Social History Tobacco Use Types [...] Description 06/18/2025 2:00 PM EDT Office Visit [facility] MEDICINE [address] [place] [address] Sofia Montalvo MD [address] [place] [address] 06/22/2025 3:00 PM EDT Office Visit [facility] ADULT DENTAL [address] [place] [address] Socorro Johnson 10/27/2025 1:30 PM EST Office Visit [facility] OPTOMETRY [address] [place] [address] Celina Olivares, OD [address] [place] [address] Scheduled Referrals Name Type Priority Associated Diagnoses Orde r Schedule Referral to Pharmacy MTM Outpatient Referral Routine Essential hypertension Ordered: 03/09/2025 documented as of this encounter Visit Diagnoses Diagnosis Essential hypertension- Primary Unspecified essential hypertension documented in this encounter Additional Health Concerns Assessment Noted Time PHQ-9 Depression Total Score: 15 025 1:50 PM EDT documented as of this encounter Care Teams Humidifier Operator Relationship Specialty Start Date End Date Sofia Montalvo MD [address] [place] [address] PCP - General Family Medicine 09/23/21 documented as of this encounter
== END 2025-06-17 13:33 | disposition home or self-care (01) ==
LOC: HO.PMC 13:06
PROVIDERS: PCP Internal Medicine; Visit Provider Anesthesiology
DX: M54.51 Vertebrogenic low back pain (principal); M54.16 Radiculopathy, lumbar region; M53.3 Sacrococcygeal disorders, not elsewhere classified; M46.1 Sacroiliitis, not elsewhere classified; Z45.1 Encounter for adjustment and management of infusion pump; M51.369 Other intervertebral disc degeneration, lumbar region without mention of lumbar back pain or lower extremity pain; M47.816 Spondylosis without myelopathy or radiculopathy, lumbar region; G89.4 Chronic pain syndrome; M15.9 Polyosteoarthritis, unspecified; R60.0 Localized edema; R10.9 Unspecified abdominal pain
CPT/HCPCS: 62370; 99213

== ENCOUNTER → 2025-06-17 13:05 | Outpatient (BNVA) | payer OTHER, SELFPAY | PROVIDERS: PCP Internal Medicine; Visit Provider Anesthesiology | DX: M54.51 Vertebrogenic low back pain (principal); M54.16 Radiculopathy, lumbar region; M53.3 Sacrococcygeal disorders, not elsewhere classified; M46.1 Sacroiliitis, not elsewhere classified; M51.369 Other intervertebral disc degeneration, lumbar region without mention of lumbar back pain or lower extremity pain; M47.816 Spondylosis without myelopathy or radiculopathy, lumbar region; M15.9 Polyosteoarthritis, unspecified; R60.0 Localized edema; R10.9 Unspecified abdominal pain; G89.4 Chronic pain syndrome | CPT/HCPCS: 62370; 99212 ==

== ENCOUNTER 2025-06-22 15:47 | Outpatient (REF) | payer OTHER, SELFPAY ==
--- OUTSIDE RECORDS SUMMARY | 2025-06-18 14:00 | XMS_ITS | Encounter Summary ---
Author Organization [employer] Address [address] [facility] [address] [place] [address] Care Team Providers Care Nurse Practitioner Manager Name Role Phone Sofia Montalvo MD Primary Care Provide r Reason for Referral * Consultation (Routine) - Authorized Specialty Diagnoses / Procedures Referred By Contac t Referred To Contact Gastroenterology Diagnoses Acute gastritis, presence of bleeding unspecified, unspecified gastritis type Soifa Montalvo MD [address] [place] [address] Phone: tel: fax: [facility] Gastroenterology [address] [place] [address] Phone: tel: fax: Referral ID Status Reason Start Date Expiration Date Visits Requested Visits Authorized [id number] Authorized Specialty Services Required 06/18/2025 06/18/2026 1 1 Encounter Details Date Type Department Care Team (Late st Contact Info) Description 06/18/2025 2:00 PM EDT Office Visit [facility] [address], [place] [phone] Sofia Montalvo MD [address] [place], [place] [phone] Lumbar disc disease (Primary Dx); Type 2 diabetes mellitus without complication, without long-term current use of insulin (CMS/HCC); JAIME (acute kidney injury) (CMS/HCC); Acute gastritis, presence of bleeding unspecified, unspecified gastritis type; Essential hypertension; Blunt trauma of face, initial encounter Social History Tobacco Use Types Packs/Day Years [...] Date Recorded Patient Health Questionnaire-9 Score 15 06/18/2025 Patient Health Questionnaire-9 Score 15 06/18/2025 Last PHQ-9: Questionnaire Data Not on file 0 06/18/2025 Housing Stability Answer Date Recorded What is [...] Date Recorded Patient Health Questionnaire-2 Score 4 06/18/2025 Internet Access Answer Date Recorded Internet Access Q1 Yes 12/15/2024 Internet Access Q2 Not on file 12/15/2024 Comments Unknown Sex and Gender Information Value Date Recorded Sex Assigned at Female 08/07/2022 10:19 AM EDT Legal Sex Female 10:19 AM EDT Gender Identity Female 08/07/2022 10:19 AM EDT Sexual Orientation Choose not to disclose 2021 10:19 AM EDT documented as of this encounter Last Filed Vital Signs Vital Sign Reading Time Taken Comments Blood Pressure 210/80 06/18/2025 2:26 PM EDT pt in pain Pulse 80 06/18/2025 2:26 PM EDT Temperature 36.6 C (97.9 F) 06/18/2025 2:26 PM EDT Respiratory Rate 20 06/18/2025 2:26 PM EDT Oxygen Saturation - - Inhaled Oxygen Concentration - - Weight 79.9 kg (176 lb 2 oz) 06/18/2025 2:26 PM EDT Height 157.5 cm (5' 2 ) 06/18/2025 2:26 PM EDT Body Mass Index 32.21 06/18/2025 2:26 PM EDT documented in this encounter Functional Status * Over the past 2 weeks, how often have you been bothered by any of the following problems? Question Answer Date of Assessment Author Patient Health Questionnaire-2 Score 4 06/18/2025 3:06 PM EDT Shilpa Miller MA * Little interest or pleasure in doing things Answer Date of Assessment Author More than half the days 06/18/2025 3:06 PM EDT B Shilpa Roberts MA * Feeling down, depressed, or hopeless Answer Date of Assessment Author More than half the days 06/18/2025 3:06 PM EDT Shilpa Grace MA * Trouble falling or staying asleep, or sleeping too much Answer Date of Assessment Author Nearly every day 06/18/2025 3:06 PM EDT Shilpa Miller MA * Feeling tired or having little energy Answer Date of Assessment Author Nearly every day 06/18/2025 3:06 PM EDT Shilpa Miller MA * Poor appetite or overeating Answer Date of Assessment Author More than half the days 06/18/2025 3:06 PM EDT Shilpa Grace MA * Feeling bad about yourself - or that you are a failure or have let yourself or your family down Answer Date of Assessment Author Several days 06/18/2025 3:06 PM EDT Shilpa Miller MA * Trouble concentrating on things, such as reading the newspaper or watching television Answer Date of Assessment Author Several days 06/18/2025 3:06 PM EDT Shilpa Miller MA * Moving or speaking so slowly that other people could have noticed? Or the opposite - being so fidgety or restless that you have been moving around a lot more than usual. Answer Date of Assessment Author Several days 06/18/2025 3:06 PM EDT Shilpa Miller MA * Thoughts that you would be better off or hurting yourself in some way Answer Date of Assessment Author Not at all 06/18/2025 3:06 PM EDT Shilpa Miller MA * Patient Health Questionnaire-9 Score Answer Date of Assessment Author 15 06/18/2025 3:06 PM EDT Shilpa Miller MA * How difficult have these problems made it for you to do your work, take care of things at home, or get along with other people? Answer Date of Assessment Author Somewhat difficult 06/18/2025 3:06 PM EDT Shilpa Mcclain MA * Over the last 2 weeks, how often have you been bothered by any of the following problems? Question Answer Date of Assessment Author Feeling nervous, anxious, or on edge 1 06/18/2025 3:08 PM EDT Shilpa Miller MA Not being able to stop or control worrying 3 06/18/2025 3:08 PM EDT Shilpa Miller MA Worrying too much about different things 3 06/18/2025 3:08 PM EDT Shilpa Miller MA Trouble relaxing 1 06/18/2025 3:08 PM EDT Shilpa Grace MA Being so restless that it is hard to sit still 1 06/18/2025 3:08 PM EDT Shilpa Miller MA Becoming easily annoyed or irritable 0 06/18/2025 3:08 PM EDT Shilpa Miller MA Feeling afraid as if something awful might happen 1 06/18/2025 3:08 PM EDT Shilpa Miller MA KRISTA-7 Total Score 10 06/18/2025 3:08 PM EDT Shilpa Miller MA documented as of this encounter Progress Notes * Sofia Art MD - 06/18/2025 2:00 PM EDT Images from the original note were not included. SUBJECTIVE: Kirstin Arcos is a 64 y.o. year old female who presents for HDF . [facility] (05/22-05/24) Presented to the ER after reporting a fall from the stairs. Found to be bradycardic. CT maxillofacial showed facial swelling without injury. CT head and CXR confirmed no abnormalities, and no concerning EKG changes. Presyncopal event determined to be likely related to polypharmacy. Cardiology recommended discontinuing atenolol and chlorthalidone, and reducing losartan. Noted to have a mild JAIME, recommended to have repeat BMP a few days following discharge. Patient to follow up with cardiology for outpatient echocardiogram. Medication changes that occurred during hospitalization include: Added N/a Changed Losartan decreased from 100mg to 50mg daily Discontinued Chlorthalidone 50mg Atenolol 50mg Patient reports a week before her hospitalization she started having abdominal pain nausea vomitingand diarrhea several times a day, patient has history of gastritis she has been taking her omeprazole as prescribed she was feeling feeling very weak and fatigue and on 815 when she was going up the stairs she felt dizzy and fell she never lost consciousness when she had the fall she hurt her face on the left side she was hospitalized workup was done labs reveal JAIME it was concluded patient had presyncope because of polypharmacy her losartan was decreased to 50 mg and chlorthalidone and atenolol were discontinued, today patient continues to complain of abdominal pain she tells me that for the pain she is taking naproxen, and and she is complaining because she is taking too many medicationand that is what caused her gastritis and for her to had a fall, today blood pressure is 210/80 I personally rechecked it 3 times and is the same blood pressure patient denies headache, chest pain, shortness of breath, dizziness, palpitation, weakness or any other red flags symptoms Social History Social History Narrative Not on file Problem List[1] Acquired hypothyroidism Chronic obstructive lung disease ([facility]) Essential hypertension Gastroesophageal reflux disease Mixed anxiety and depressive disorder Allergic rhinitis Arthritis of right knee Arthropathy Asthma Foot pain Chronic pain of right knee Disorder of skeletal muscle Inflammation of sacroiliac joint ([facility]) Kidney stone Knee pain Lumbar disc disease Multiple joint pain Nondependent opioid abuse ([facility]) Physiological tremor Plantar fasciitis Pure hypercholesterolemia Skin pruritus Tobacco dependence syndrome Visual impairment Vaginal wall prolapse Prediabetes Syncope Lower extremity edema Venous insufficiency Anemia Hemorrhoids Other chronic pain Nail abnormality Smoker Pain due to onychomycosis of nail Type 2 diabetes mellitus without complication, without long-term current use of insulin ([facility]) COVID-19 Irritable bowel syndrome with diarrhea Chronic diarrhea Allergic reaction Hypertriglyceridemia Stage 3a chronic kidney disease ([facility]) Class 1 obesity with serious comorbidity and body mass index (BMI) of 32.0 to 32.9 in adult Seborrheic dermatitis of scalp Drug-induced constipation Sebaceous cyst Folliculitis Pulmonary nodule Atelectasis Alcohol dependence with alcohol-induced anxiety disorder ([facility]) Dental caries Dental calculus Acute pain of left knee Acute gastritis Urinary incontinence Fecal incontinence Swelling JAIME (acute kidney injury) ([facility]) Blunt trauma of face Family History[2] Review of Systems Constitutional: Negative. HENT: Negative. Respiratory: Negative. Cardiovascular: Negative. Gastrointestinal: Positive for abdominal distention, abdominal pain and nausea. Negative for anal bleeding, blood in stool, constipation, diarrhea, rectal pain and vomiting. Musculoskeletal: Positive for arthralgias, back pain and myalgias. Pain on her face OBJECTIVE: Vitals: 06/18/25 1426 BP: (!) 210/80 BP Location: Left arm Patient Position: Sitting BP Cuff Size: Large adult Pulse: 80 Resp: 20 Temp: 97.9 ??F (36.6 ??C) TempSrc: Oral Weight: 176 lb 2 oz (79.9 kg) Height: 5' 2 (1.575 m) Physical Exam HENT: Head: Comments: Hematoma around left eye swelling of left side of the face Cardiovascular: Rate and Rhythm: Normal rate and regular rhythm. Pulmonary: Effort: Pulmonary effort is normal. Breath sounds: Normal breath sounds. Abdominal: General: Abdomen is flat. Tenderness: There is abdominal tenderness in the epigastric area. Neurological: Mental Status: She is alert. Follow Up: Follow up for 1 week BP check with nurse then 3 months with me . Medications Ordered Prior to Encounter[3] Problem List Items Addressed This Visit Type 2 diabetes mellitus without complication, without long-term current use of insulin ([facility]) Diabetes is: controlled - Lab Results Component Value Date HGBA1C 6.2 (A) 06/18/2025 HGBA1C 6.2 (A) 12/15/2024 HGBA1C 6.3 (A) 06/30/2024 - Lab Results Component Value Date MICROALBUR 4.8 08/07/2022 CREATININE 0.95 12/25/2024 -Changes: None - Continue current medications - Follow up: 3 months Relevant Medications losartan (Cozaar) 50 MG tablet Other Relevant Orders POCT Glucose (Completed) POCT Hgb A1c (Completed) JAIME (acute kidney injury) ([facility]) BMP will be rechecked patient will be contacted with results Advised to drink plenty of water and maintain hydration I advised to avoid nephrotoxic medications like NSAIDs please discontinue naproxen and do not take other meds like ibuprofen, Motrin Advil etc. Relevant Medications losartan (Cozaar) 50 MG tablet atenolol (Tenormin) 25 MG tablet Other Relevant Orders Basic Metabolic Panel Acute gastritis Extensive counseling about diet do not eat spicy or greasy food or takeout Continue with omeprazole 40 mg daily I added today MiraLAX to be taken as needed I refer her back to GI Relevant Medications aluminum-magnesium hydroxide-simethicone (Maalox) 200-200-20 MG/5ML suspension Other Relevant Orders Referral to Gastroenterology Lumbar disc disease - Primary Continue to follow with pain management Relevant Medications acetaminophen (Tylenol 8 Hour) 650 MG ER tablet Essential hypertension Blood pressure very elevated today I put the prescription in for the losartan 50 but I also had to reinitiate atenolol to 25 mg I will continue to hold for now the chlorthalidone plan is for her to come back in 1 week for nurse visit for BP check if blood pressure continues to be this high plan is to increase again losartan to 100 mg I also ordered BMP today to monitor renal function and electrolytes Relevant Medications losartan (Cozaar) 50 MG tablet atenolol (Tenormin) 25 MG tablet Blunt trauma of face She may take acetaminophen as needed Relevant Medications acetaminophen (Tylenol 8 Hour) 650 MG ER tablet [1] Patient Active Problem List Diagnosis Acquired hypothyroidism Chronic obstructive lung disease ([facility]) Essential hypertension Gastroesophageal reflux disease Mixed anxiety and depressive disorder Allergic rhinitis Arthritis of right knee Arthropathy Asthma Foot pain Chronic pain of right knee Disorder of skeletal muscle Inflammation of sacroiliac joint ([facility]) Kidney stone Knee pain Lumbar disc disease Multiple joint pain Nondependent opioid abuse ([facility]) Physiological tremor Plantar fasciitis Pure hypercholesterolemia Skin pruritus Tobacco dependence syndrome Visual impairment Vaginal wall prolapse Prediabetes Syncope Lower extremity edema Venous insufficiency Anemia Hemorrhoids Other chronic pain Nail abnormality Smoker Pain due to onychomycosis of nail Type 2 diabetes mellitus without complication, without long-term current use of insulin ([facility]) COVID-19 Irritable bowel syndrome with diarrhea Chronic diarrhea Allergic reaction Hypertriglyceridemia Stage 3a chronic kidney disease ([facility]) Class 1 obesity with serious comorbidity and body mass index (BMI) of 32.0 to 32.9 in adult Seborrheic dermatitis of scalp Drug-induced constipation Sebaceous cyst Folliculitis Pulmonary nodule Atelectasis Alcohol dependence with alcohol-induced anxiety disorder ([facility]) Dental caries Dental calculus Acute pain of left knee Acute gastritis Urinary incontinence Fecal incontinence Swelling JAIME (acute kidney injury) ([facility]) Blunt trauma of face [2] No family history on file. [3] Current Outpatient Medications on File Prior to Visit Medication Sig Dispense Refill albuterol (2.5 MG/3ML) 0.083% nebulizer solution Take 3 mL (2.5 mg) by nebulization every 4 (four) hours if needed for wheezing. 75 mL 3 albuterol (Ventolin HFA) 108 (90 Base) MCG/ACT inhaler INHALE 2 PUFFS BY MOUTH FOUR TIMES DAILY 18 g 2 Ascorbic Acid (vitamin C) 250 MG tablet TAKE 1 TABLET BY MOUTH EVERY OTHER DAY IN THE MORNING 45 tablet 1 bacitracin 500 UNIT/GM ointment Apply topically 2 times daily. 14 g 0 Blood Glucose Monitoring Suppl (ONE TOUCH ULTRA 2) w/Device kit TEST BLOOD SUGAR DAILY DIRECTED 1 kit 0 Blood Pressure Monitor kit Use as directed 3x/week 1 kit 0 busPIRone (Buspar) 10 MG tablet Take 1.5 tablets (15 mg) by mouth 2 times daily. 90 tablet 1 cetirizine (ZyrTEC) 10 MG tablet TAKE 1 TABLET BY MOUTH EVERYDAY AT NOON 90 tablet 3 cholecalciferol VITAMIN D (Vitamin D-3) 50 MCG (2000 UT) tablet TAKE 1 TABLET BY MOUTH EVERYDAY AT NOON 90 tablet 3 clonazePAM (KlonoPIN) 0.5 MG tablet Take 1 tablet (0.5 mg) by mouth Once per day for 28 days. 28 tablet 0 clotrimazole (Lotrimin) 1 % cream APPLY TOPICALLY TWICE DAILY IN THE MORNING AND AT BEDTIME NEEDED FOR RASH 30 g 2 dicyclomine (Bentyl) 10 MG capsule Take 10 mg by mouth 3 times daily. docusate sodium (Colace) 100 MG capsule Take 1 capsule (100 mg) by mouth 2 times daily. 60 capsule 11 doxepin (SINEquan) 50 MG capsule Take 1 capsule (50 mg) by mouth at bedtime. 30 capsule 1 escitalopram (Lexapro) 10 MG tablet Take 1 tablet (10 mg) by mouth in the morning. 30 tablet 1 ferrous gluconate (Ferate) 240 (27 Fe) MG tablet TAKE 1 TABLET BY MOUTH EVERY OTHER DAY IN THE MORNING 15 tablet 5 fluticasone (Flonase) 50 MCG/ACT nasal spray USE 1 SPRAY IN EACH NOSTRIL TWICE DAILY 48 g 0 Gas Relief Extra Strength 125 MG chewable tablet TAKE 1 TABLET BY MOUTH 4 TIMES A DAY IN THE MORNING, AT NOON, IN THE EVENING, AND AT BEDTIME NEEDED FOR GAS 60 tablet 1 glucose blood (OneTouch Ultra Test) test strip 1 each by Other route Once per day. glucose blood test strip Use once daily 100 each 12 hydrocortisone (Anusol-HC) 2.5 % rectal cream Insert into the rectum 2 times daily. 28 g 1 ketoconazole (NIZOral) 2 % shampoo APPLY TO SCALP AND LEAVE ON FOR 5 MINUTES THEN RINSE OFF TWICE AWEEK 120 mL 1 lidocaine (Xylocaine) 5 % ointment Apply topically if needed for mild pain. 30 g 2 loperamide (Imodium) 2 MG capsule Take 1 capsule (2 mg) by mouth if needed in the morning, at noon,in the evening, and at bedtime for diarrhea. 30 capsule 1 metFORMIN (Glucophage) 500 MG tablet Take 1 tablet (500 mg) by mouth with breakfast. 90 tablet 1 naloxone (Narcan) 4 mg/0.1 mL nasal spray Administer 1 spray into affected nostril(s) if needed foropioid reversal or respiratory depression. Repeat in alternate nostril in 2-3 minutes if needed. Seek medical attention immediately even if patient responds. omeprazole (PriLOSEC) [address] capsule Take 1 capsule (40 mg) by mouth before breakfast and before evening meal. Do not crush or chew. 60 capsule 3 OneTouch Delica Lancets 33G misc TEST BLOOD SUGAR DAILY DIRECTED 100 each 5 polycarbophil (Fibercon) 625 MG tablet Take 1 tablet (625 mg) by mouth 2 times daily. 60 tablet 11 polyethylene glycol, PEG, 3350 (Miralax) 17 g packet Take 17 g by mouth Once per day. 30 packet 11 pregabalin (Lyrica) 150 MG capsule Take 1 capsule by mouth every 12 (twelve) hours. senna (Senokot) 8.6 MG tablet Take 1 tablet (8.6 mg) by mouth at bedtime. 120 tablet 0 simvastatin (Zocor) 40 MG tablet TAKE 1 TABLET BY MOUTH AT BEDTIME 30 tablet 11 UNABLE TO FIND MIXTURE ADDITIVE Med Name: Hydromorphone 8 mg/mL, Baclofen 600 mcg/mL, Bupivacaine 40 mg/mL solution Continuous infusion via home implanted intrathecal pump zolpidem (Ambien) 5 MG tablet Take 1 tablet (5 mg) by mouth if needed at bedtime for sleep. 30 tablet 0 [DISCONTINUED] acetaminophen (Tylenol 8 Hour) 650 MG ER tablet Take 2 tablets (1,300 mg) by mouth every 8 (eight) hours if needed for mild pain. TAKE 1 TABLET BY MOUTH EVERY 8 HOURS NEEDED FOR MILD PAIN OR FOR MODERATE PAIN 60 tablet 3 [DISCONTINUED] atenolol (Tenormin) 50 MG tablet TAKE 1 TABLET BY MOUTH EVERY EVENING 30 tablet 5 [DISCONTINUED] chlorthalidone (Hygroton) 50 MG tablet TAKE 1 TABLET BY MOUTH EVERYDAY AT NOON 30 tablet 5 [DISCONTINUED] losartan (Cozaar) 100 MG tablet TAKE 1 TABLET BY MOUTH EVERYDAY AT NOON 90 tablet 1 [DISCONTINUED] losartan (Cozaar) 50 MG tablet Take 50 mg by mouth Once per day. No current facility-administered medications on file prior to visit. documented in this encounter Miscellaneous Notes * Assessment & Plan Note - Sofia Art MD - 06/18/2025 4:32 PM EDT Associated Problem(s): Lumbar disc disease Continue to follow with pain management * Assessment & Plan Note - Sofia Art MD - 06/18/2025 4:32 PM EDT Associated Problem(s): Blunt trauma of face She may take acetaminophen as needed * Assessment & Plan Note - Sofia Art MD - 06/18/2025 4:31 PM EDT Associated Problem(s): JAIME (acute kidney injury) (CMS/[facility]) BMP will be rechecked patient will be contacted with results Advised to drink plenty of water and maintain hydration I advised to avoid nephrotoxic medications like NSAIDs please discontinue naproxen and do not take other meds like ibuprofen, Motrin Advil etc. * Assessment & Plan Note - Sofia Art MD - 06/18/2025 4:31 PM EDT Associated Problem(s): Acute gastritis Extensive counseling about diet do not eat spicy or greasy food or takeout Continue with omeprazole 40 mg daily I added today MiraLAX to be taken as needed I refer her back to GI * Assessment & Plan Note - Sofia Art MD - 06/18/2025 4:30 PM EDT Associated Problem(s): Type 2 diabetes mellitus without complication, without long-term current useof insulin (CMS/HCC) Diabetes is: controlled - Lab Results Component Value Date HGBA1C 6.2 (A) 06/18/2025 HGBA1C 6.2 (A) 12/15/2024 HGBA1C 6.3 (A) 06/30/2024 - Lab Results Component Value Date MICROALBUR 4.8 08/07/2022 CREATININE 0.95 12/25/2024 -Changes: None - Continue current medications - Follow up: 3 months * Assessment & Plan Note - Sofia Art MD - 06/18/2025 4:30 PM EDT Associated Problem(s): Essential hypertension Blood pressure very elevated today I put the prescription in for the losartan 50 but I also had to reinitiate atenolol to 25 mg I will continue to hold for now the chlorthalidone plan is for her to come back in 1 week for nurse visit for BP check if blood pressure continues to be this high plan is to increase again losartan to 100 mg I also ordered BMP today to monitor renal function and electrolytes documented in this encounter Plan of Treatment Upcoming Encounters Date Type Department Care Team (Late st Contact Info) Description 06/25/2025 2:00 PM EDT Clinical Support [facility] [address] [place] [address] 10/27/2025 1:30 PM EST Office Visit [facility] [address] [place] [address] Marshall, Celina, OD [address] [place] [address] 12/21/2025 1:30 PM EDT Office Visit [facility] D[facility] [address] [place] [address] Socorro Johsnon Scheduled Orders Name Type Priority Associated Diagnoses Orde r Schedule Basic Metabolic Panel Lab Routine JAIME (acute kidney injury) (CMS/HCC) Expected: 06/18/2025 (Approximate), Expires: 06/18/2026 Scheduled Referrals Name Type Priority Associated Diagnoses Order Schedule Referral to Gastroenterology Outpatient Referral Routine Acute gastritis, presence of bleeding unspecified, unspecified gastritis type Expected: 06/18/2025 (Approximate), Expires: 06/18/2026 documented as of this encounter Procedures Procedure Name Priority Date/Time Associated Diagnosis Comments POCT GLYCATED HEMOGLOBIN, TOTAL Routine 06/18/2025 2:28 PM EDT Type 2 diabetes mellitus without complication, without long-term current use of insulin ([facility]) POCT GLUCOSE Routine 06/18/2025 2:28 PM EDT Type 2 diabetes mellitus without complication, without long-term current use of insulin ([facility]) documented in this encounter Results * (ABNORMAL) POCT Hgb A1c (06/18/2025 2:28 PM EDT) Hemoglobin A1C 6.2(A) 4.0 - 5.7 % QC Media Lot # [id number] Lot# Expiration Date 42,[id number] Blood 06/18/2025 2:28 PM EDT Sofia Art MD POINT OF CARE TEST EN TER/EDIT ORDERABLES Final Result * POCT Glucose (06/18/2025 2:28 PM EDT) Glucose Blood, POC 148 60 - 200 mg/dL QC Media Lot # [id number] Lot# Expiration Date 11,325 Blood Capillary blood specimen / Unknown 06/18/2025 2:28 PM EDT Sofia Art MD POINT OF CARE TEST EN TER/EDIT ORDERABLES Final Result documented in this encounter Visit Diagnoses Diagnosis Lumbar disc disease- Primary Other and unspecified disc disorder of lumbar region Type 2 diabetes mellitus without complication, without long-term current use of insulin ([facility]) JAIME (acute kidney injury) ([facility]) Acute gastritis, presence of bleeding unspecified, unspecified gastritis type Essential hypertension Unspecified essential hypertension Blunt trauma of face, initial encounter documented in this encounter Additional Health Concerns Assessment Noted Time PHQ-9 Depression Total Score: 15 06/18/ 025 3:06 PM EDT documented as of this encounter Care Teams Nurse Practitioner Manager Relationship Specialty Start Date End Date Sofia Montalvo MD [address] [place] [address] PCP - General Family Medicine 09/23/21 documented as of this encounter
--- OUTSIDE RECORDS SUMMARY | 2025-06-22 15:00 | XMS_ITS | Encounter Summary ---
Author Organization [employer] Address [address] [place] [address] Care Team Providers Care Sql Architect Name Role Phone Sofia Montalvo MD Primary Care Provide r Encounter Details Date Type Department Care Team ([facility] st Contact Info) Description 06/22/2025 3:00 PM EDT Office Visit [facility] ADULT DENTAL [address] [place], [place] [phone] Socorro Johnson Dental calculus (Primary Dx); Dental plaque; Geographic tongue Social History Tobacco Use Types Packs/Day Years [...] Sign Reading Time Taken Comments Blood Pressure 162/82 06/22/2025 3:20 PM EDT Pulse - - Temperature - - Respiratory Rate - - Oxygen Saturation - - Inhaled Oxygen Concentration - - Weight - - Height - - Body Mass Index - - documented in this encounter Progress Notes * Socorro Johnson - 06/22/2025 3:00 PM EDT Patient ID: Kirstin Arcos is a 64 y.o. female. Time Out: Timeout Date: 06/22/25, Timeout Time: 1514 (Dental Prophy Adult) Location: [facility] Tooth: Mandible Procedure: Exam and Prophylaxis Verified the above with patient, acute care nursing assistant, and provider. Confirmed via patient's chart, intraorally and by radiographs. Draw Bench Operator Helper: not applicable Medical Hx: Vitals: Blood pressure (!) 162/82. Medications, Med Hx reviewed with patient and updated in chart. Treatment Provided Dental procedures in this visit D1110 - PROPHYLAXIS - ADULT (Completed) Service provider: Socorro Coker provider: Andrey De Jesus DDS D1330 - ORAL HYGIENE INSTRUCTIONS (Completed) Service provider: Socorro Johnson Billing provider: Andrey De Jesus DDS D9450 - CASE PRESENTATION, DETAILED AND EXTENSIVE TREATMENT PLANNING (Completed) Service provider: Socorro Johnson Billdavid provider: Andrey De Jesus DDS Instruments Used: Ultrasonic Scalers, Hand Scalers, Prophy angle, and floss Fluoride: N/A Oral Cancer Screening: No lesions Head/Neck Exam: No Lesions Calculus: Moderate and Generalized Plaque: Light and Generalized Stain: Moderate and Generalized Bleeding: Light and Generalized Gingiva: Inflamed OH: Poor Perio Chart: Not due Oral hygiene instructions provided to patient including brushing technique and flossing. Recommendations: [facility] two times daily, modified scott technique, Floss daily, Electric toothbrush, Soft bristle toothbrush, [facility] Tongue, Anti-sensitivity toothpaste Recall Frequency: 6 mo NV: 6mrc Hygienist: Socorro Johnson RDH * Andrey De Jesus DDS - 06/22/2025 3:00 PM EDT Dental procedures in this visit D1110 - PROPHYLAXIS - ADULT (Completed) Service provider: Socorro Johnson Billdavid provider: Andrey De Jesus DDS D1330 - ORAL HYGIENE INSTRUCTIONS (Completed) Service provider: Socorro Johnson Billdavid provider: Andrey De Jesus DDS D9450 - CASE PRESENTATION, DETAILED AND EXTENSIVE TREATMENT PLANNING (Completed) Service provider: Socorro Johnson Billdavid provider: Andrey De Jesus DDS D0120 - PERIODIC ORAL EVALUATION - ESTABLISHED PATIENT (Completed) Service provider: Andrey De Jesus DDS Billdavid provider: Andrey De Jesus DDS Patient ID: Kirstin Arcos is a 64 y.o. female. Time Out: Timeout Date: 06/22/25, Timeout Time: 1515 (Dental Prophy Adult) Location: [facility] Tooth: Maxilla and Mandible Procedure: Exam and Prophylaxis Verified the above with patient, acute care nursing assistant, and provider. Confirmed via patient's chart, intraorally and by radiographs. Draw Bench Operator Helper: not applicable No chief complaint on file. Medical Hx: Vitals: Blood pressure (!) 162/82. Medical History[1] Medications: Encounter Medications[2] Objective HPI Symptomatic Geographic tongue Head and Neck Exam: Lymph Nodes, Lips, Palate, Buccal Mucosa, Floor of Mouth, Tonsils, Alveolar Ridges, Oropharynx, Salivary Ducts, Vestibules , and normal appearance including geographic tongue now presenting irritation and pain Details: Skin, on left infraorbital eye, hematoma. According to kirstin as a result from a fall recently, now she is doing better. 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 DX no cerebralcontusion or fractures reported. OCS: negative Dental Exam As charted Edentulous maxillae Reference tooth chart for additional findings. Oral Cancer Risk: Low Risk Oral Hygiene Instructions: [facility] two times daily, modified scott technique, Floss daily, Electric toothbrush, Soft bristle toothbrush, [facility] Tongue Caries Risk Assessment: Medium- one risk factor Assessment/Plan KEO No x rays taken today, used existing Prophy Prescription to control infection, pain irritation on benign migratory glossiti. Pt was advised that her condition usually doesn't need treatment, but in order to reduce irritation and infection flares up she must avoid hot, spicy food and maintain an optimal [place] Patient tolerated procedure well, all questions answered and expressed understanding. Dismissed in good condition. NV: 6 mos recall Automotive Glass Specialist: Socorro Johnson RDH Dentist: Andrey De Jesus DDS [1] Past Medical History: Diagnosis Date Arthritis Asthma Bleeding gums Diabetes mellitus (CMS/HCC) Dry mouth GERD (gastroesophageal reflux disease) Hepatitis B Hypertension [2] Outpatient Encounter Medications as of 06/22/2025 Medication Sig Dispense Refill acetaminophen (Tylenol 8 Hour) 650 MG ER tablet Take 2 tablets (1,300 mg) by mouth every 8 (eight) hours if needed for mild pain. TAKE 1 TABLET BY MOUTH EVERY 8 HOURS NEEDED FOR MILD PAIN OR FOR MODERATE PAIN 60 tablet 3 albuterol (2.5 MG/3ML) 0.083% nebulizer solution Take 3 mL (2.5 mg) by nebulization every 4 (four) hours if needed for wheezing. 75 mL 3 albuterol (Ventolin HFA) 108 (90 Base) MCG/ACT inhaler INHALE 2 PUFFS BY MOUTH FOUR TIMES DAILY 18 g 2 aluminum-magnesium hydroxide-simethicone (Maalox) 200-200-20 MG/5ML suspension Take 30 mL by mouth before breakfast, before lunch, before evening meal, and at bedtime. 1680 mL 1 Ascorbic Acid (vitamin C) 250 MG tablet TAKE 1 TABLET BY MOUTH EVERY OTHER DAY IN THE MORNING 45 tablet 1 atenolol (Tenormin) 25 MG tablet Take 1 tablet (25 mg) by mouth Once per day. 30 tablet 1 bacitracin 500 UNIT/GM ointment Apply topically 2 times daily. 14 g 0 Blood Glucose Monitoring Suppl (ONE TOUCH ULTRA 2) w/Device kit TEST BLOOD SUGAR DAILY DIRECTED 1 kit 0 Blood Pressure Monitor kit Use as directed 3x/week 1 kit 0 busPIRone (Buspar) 10 MG tablet TAKE 1 AND 1/2 TABLETS BY MOUTH TWICE DAILY 90 tablet 1 cetirizine (ZyrTEC) 10 MG [...] capsule 11 doxepin (SINEquan) 50 MG capsule TAKE 1 CAPSULE BY MOUTH AT BEDTIME 30 capsule 1 escitalopram (Lexapro) 10 MG tablet TAKE 1 TABLET BY MOUTH EVERY MORNING 30 tablet 1 ferrous gluconate (Ferate) 240 [...] at bedtime for diarrhea. 30 capsule 1 losartan (Cozaar) 50 MG tablet Take 1 tablet (50 mg) by mouth Once per day. 30 tablet 1 metFORMIN (Glucophage) 500 MG tablet Take 1 tablet (500 mg) by mouth with breakfast. 90 tablet 1 naloxone (Narcan) 4 mg/0.1 mL nasal spray Administer 1 spray into affected nostril(s) if needed foropioid reversal or respiratory depression. Repeat in alternate nostril in 2-3 minutes if needed. Seek medical attention immediately even if patient responds. omeprazole (PriLOSEC) [address] capsule TAKE 1 CAPSULE BY MOUTH TWICE DAILY IN THE MORNING AND IN THE EVENING 60 capsule 3 OneTouch Delica Lancets 33G [...] MOUTH EVERY EVENING 30 tablet 5 [DISCONTINUED] busPIRone (Buspar) 10 MG tablet Take 1.5 tablets (15 mg) by mouth 2 times daily. 90 tablet 1 [DISCONTINUED] chlorthalidone (Hygroton) 50 MG tablet TAKE 1 TABLET BY MOUTH EVERYDAY AT NOON 30 tablet 5 [DISCONTINUED] doxepin (SINEquan) 50 MG capsule Take 1 capsule (50 mg) by mouth at bedtime. 30 capsule 1 [DISCONTINUED] escitalopram (Lexapro) 10 MG tablet Take 1 tablet (10 mg) by mouth in the morning. 30 tablet 1 [DISCONTINUED] losartan (Cozaar) 100 MG tablet TAKE 1 TABLET BY MOUTH EVERYDAY AT NOON 90 tablet 1 [DISCONTINUED] losartan (Cozaar) 50 MG tablet Take 50 mg by mouth Once per day. [DISCONTINUED] omeprazole (PriLOSEC) [address] capsule Take 1 capsule (40 mg) by mouth before breakfast and before evening meal. Do not crush or chew. 60 capsule 3 No facility-administered encounter medications on file as of 06/22/2025. documented in this encounter Plan of Treatment Upcoming Encounters Date Type Department Care Team (Late st Contact Info) Description 06/25/2025 2:00 PM EDT Clinical Support [facility] MEDICINE [address] [place] [address] 10/27/2025 1:30 PM EST Office Visit [facility] OPTOMETRY [address] [place] [address] Celina Olivares, OD [address] [place] [address] 12/21/2025 1:30 PM EDT Office Visit [facility] ADULT DENTAL [address] [place], [place] [phone] Socorro Johnson Scheduled Orders Name Type Priority Associated Diagnoses Orde r Schedule PROPHYLAXIS - ADULT Dental Routine 1 Occ urrences starting 06/22/2025 documented as of this encounter Procedures Procedure Name Priority Date/Time Associated Diagnosis Comments PROPHYLAXIS - ADULT Routine 06/22/2025 3 :00 PM EDT Dental calculus Dental plaque PERIODIC ORAL EVALUATION - ESTABLISHED PATIENT Routine 06/22/2025 3:00 PM EDT ORAL HYGIENE INSTRUCTIONS Routine 06/22/2025 3:00 PM EDT Dental calculus Dental plaque CASE PRESENTATION, DETAILED AND EXTENSIVE TREATMENT PLANNING Routine 06/22/2025 3:00 PM EDT documented in this encounter Visit Diagnoses Diagnosis Dental calculus- Primary Accretions on teeth Dental plaque Accretions on teeth Geographic tongue documented in this encounter Additional Health Concerns Assessment Noted Time PHQ-9 Depression Total Score: 025 3:06 PM EDT documented as of this encounter Care Teams Sql Architect Relationship Specialty Start Date End Date Sofia Montalvo MD [address] [place] [address] PCP - General Family Medicine 09/23/21 documented as of this encounter
[2025-06-22 17:40] LABS: MANUAL DIFF FLAG NO
[2025-06-22 17:53] LABS: Hematocrit 35.2 % (37.0-47.0); Hemoglobin 11.7 g/dl (12.0-16.0); Imm Gran Abs Auto 0.04 X10*3/uL (0.00-0.03); Imm Gran Pct Auto 0.3 % (0.0-0.4); Lymphocytes Absolute Auto 2.3 X10*3/uL (1.2-4.9); Mean Corpuscular HGB Conc 33.2 g/dl (31.0-35.0); Mean Corpuscular Hemoglobin 31.1 pg (27.0-33.0); Mean Corpuscular Volume 93.6 fL (80.0-98.0); NRBC Abs Auto 0.000 X10*3/uL (0.0-0.012); NRBC Pct Auto 0.0 /100WBC (0.0-0.2); Platelet Count 323 X10*3/uL (160-400); Red Blood Count 3.76 X10*6/uL (4.20-5.50); White Blood Count 11.5 X10*3/uL (4.8-10.8)
[2025-06-22 18:05] LABS: Alanine Aminotransferase 24 U/L (0-31); Albumin Level 4.0 g/dL (3.5-5.0); Alkaline Phosphatase 83 U/L (39-117); Anion Gap 13 (12-20); Aspartate Amino Transferase 29 U/L (5-31); Blood Urea Nitrogen 11 mg/dL (9-16); Calcium 9.1 mg/dL (8.4-10.2); Carbon Dioxide 26 mmol/L (22-29); Chloride 105 mmol/L (96-108); Cholesterol 188 mg/dL (<200); Estimated Glomerular Filt Rate 58; HDL Cholesterol 47 mg/dL (>40); Potassium 4.4 mmol/L (3.3-5.1); Sodium 140 mmol/L (135-145); Total Protein 7.1 g/dL (6.5-8.0); Triglycerides 260 mg/dL (<150)
[2025-06-22 18:31] LABS: Microalbum/Creatinine Ratio Ur 10.8 ug/mg cr (<30)
[2025-06-22 18:51] LABS: Vitamin B12 419 pg/mL (200-900)
--- OUTSIDE RECORDS SUMMARY | 2025-06-22 21:07 | XMS_ITS | Encounter Summary ---
Author Organization [employer] Address [address] [place] [address] Care Team Providers Care Used Car Make Ready Worker Name Role Phone Sofia Montalvo MD Primary Care Provide r Reason for Visit * Reason Comments Med Refill Encounter Details Date Type Department Care Team ([facility] Contact Info) Description 08/24/2023 Refill [facility] MEDICINE [address] [place], [place] [phone] Sofia Montalvo MD [address] [place], [place] [phone] Other chronic pain Social History Tobacco Use [...] Description 06/25/2025 2:00 PM EDT Clinical Support [facility] MEDICINE [address] [place] [address] 10/27/2025 1:30 PM EST Office Visit [facility] OPTOMETRY [address] [place] [address] Marshall, Celina, OD [address] [place] [address] 12/21/2025 1:30 PM EDT Office Visit [facility] ADULT DENTAL [address] [place] [address] Socorro Johnson documented as of this encounter Visit Diagnoses Diagnosis Other chronic pain documented in this encounter Care Teams Used Car Make Ready Worker Relationship Specialty Start Date End Date Sofia Montalvo MD [address] [place] [address] PCP - General Family Medicine 09/23/21 documented as of this encounter
--- OUTSIDE RECORDS SUMMARY | 2025-06-22 21:07 | XMS_ITS | Encounter Summary ---
Author Organization [employer] Address [address] [facility] 7t [place] [address] Care Team Providers Care Water Mechanic Name Role Phone Sofia Montalvo MD Primary Care Provide r Encounter Details Date Type Department Care Team ([facility] Contact Info) Description 07/06/2023 Abstract [facility] MEDICINE [address] [place], [place] [phone] Dayana Erazo Social History Tobacco Use Types [...] Upcoming Encounters Date Type Department Care Team ([facility] Contact Info) Description 06/25/2025 2:00 PM EDT Clinical Support [facility] MEDICINE [address] [place], [place] [phone] 10/27/2025 1:30 PM EST Office Visit [facility] OPTOMETRY [address] [place], [place] [phone] Marshall, Celina, OD [address] [place], [place] [phone] 12/21/2025 1:30 PM EDT Office Visit [facility] ADULT DENTAL [address] [place] [address] Socorro Johnson documented as of this encounter Procedures Procedure Name Priority Date/Time Associated Diagnosis Comments COLPOSCOPY Routine 06/19/2023 COLONOSCOPY Routine 04/04/2023 BIOPSY CERVIX Routine 01/02/2022 HM PAP/HPV Routine 01/02/2022 BIOPSY CERVIX Routine 06/07/2021 documented in this encounter Results * Colposcopy (06/19/2023) Historical Provider IN CLINIC/BEDSIDE ORDERAB LES Final Result * Colonoscopy (04/04/2023) Colonoscopy Normal Normal Result [facility] Sherri Britton MD HEALTH MAINTENANCE Final Result * Biopsy cervix (01/02/2022) Historical Provider IN CLINIC/BEDSIDE ORDERAB LES Final Result * Pap Smear (01/02/2022) Pap Negative for intraephithelial lesion or malignancy Negative for intraephithelial lesion or malignancy, Other HPV Detected Result [facility] Historical Provider HEALTH MAINTENANCE Final Result * Biopsy cervix (06/07/2021) [facility] Provider IN CLINIC/BEDSIDE ORDERAB LES Final Result documented in this encounter Visit Diagnoses Not on filedocumented in this encounter Care Teams Water Mechanic Relationship Specialty Start Date End Date Sofia Montalvo MD [address] [place] [address] PCP - General Family Medicine 09/23/21 documented as of this encounter
--- OUTSIDE RECORDS SUMMARY | 2025-06-22 21:07 | XMS_ITS | Encounter Summary ---
Author Organization [employer] Address [address] [place] [address] Care Team Providers Care Refining Engineer Name Role Phone Sofia Montalvo MD Primary Care Provide r Reason for Visit * Reason Comments Med Refill Encounter Details Date Type Department Care Team ([facility] st Contact Info) Description 02/18/2024 Refill [facility] MEDICINE [address] [place], [place] [phone] Sofia Montalvo MD [address] [place], [place] [phone] Chronic diarrhea Social History Tobacco Use Types [...] Description 06/25/2025 2:00 PM EDT Clinical Support [facility] MEDICINE [address] [place] [address] 10/27/2025 1:30 PM EST Office Visit [facility] OPTOMETRY [address] [place] [address] Marshall, Celina, OD [address] [place] [address] 12/21/2025 1:30 PM EDT Office Visit [facility] ADULT DENTAL [address] [place] [address] Socorro Johnson documented as of this encounter Visit Diagnoses Diagnosis Chronic diarrhea Diarrhea documented in this encounter Care Teams Refining Engineer Relationship Specialty Start Date End Date Sofia Montalvo MD [address] [place] [address] PCP - General Family Medicine 09/23/21 documented as of this encounter
--- OUTSIDE RECORDS SUMMARY | 2025-06-22 21:07 | XMS_ITS | Encounter Summary ---
Author Organization [email or web address] [facility] Address [address] [place] [address] Care Team Providers Care Indigo Vat Tender Cloth Name Role Phone Sofia Montalvo MD Primary Care Provide r Encounter Details Date Type Department Care Team (Latest Contact Info) Description 01/21/2019 Abstract [facility] CONVERSIONS Dental, Provider, DDS Social History [...] Description 06/25/2025 2:00 PM EDT Clinical Support [facility] MEDICINE [address] [place] [address] 10/27/2025 1:30 PM EST Office Visit [facility] OPTOMETRY [address] [place] [address] Marshall, Celina, OD [address] [place] [address] 12/21/2025 1:30 PM EDT Office Visit [facility] ADULT DENTAL [address] [place] [address] Socorro Johnson documented as of this encounter Visit Diagnoses Not on filedocumented in this encounter Care Teams Indigo Vat Tender Cloth Relationship Specialty Start Date End Date Sofia Montalvo MD [address] [place] [address] PCP - General Family Medicine 09/23/21 documented as of this encounter
--- OUTSIDE RECORDS SUMMARY | 2025-06-22 21:07 | XMS_ITS | Encounter Summary ---
Author Organization [employer] Address [address] [place] [address] Care Team Providers Care Business Area Manager Name Role Phone Sofia Montalvo MD Primary Care Provide r Reason for Visit * Reason Comments Med Refill Encounter Details Date Type Department Care Team ([facility] st Contact Info) Description 02/25/2024 Refill [facility] MEDICINE [address] [place], [place] [phone] Sofia Montalvo MD [address] [place], [place] [phone] Lumbar disc disease Social History Tobacco Use [...] Description 06/25/2025 2:00 PM EDT Clinical Support [facility] MEDICINE [address] [place] [address] 10/27/2025 1:30 PM EST Office Visit [facility] OPTOMETRY [address] [place] [address] Marshall, Celina, OD [address] [place] [address] 12/21/2025 1:30 PM EDT Office Visit [facility] ADULT DENTAL [address] [place] [address] Socorro Johnson documented as of this encounter Visit Diagnoses Diagnosis Lumbar disc disease Other and unspecified disc disorder of lumbar region documented in this encounter Care Teams Business Area Manager Relationship Specialty Start Date End Date Sofia Montalvo MD [address] [place] [address] PCP - General Family Medicine 09/23/21 documented as of this encounter
--- OUTSIDE RECORDS SUMMARY | 2025-06-22 21:07 | XMS_ITS | Encounter Summary ---
Author Organization [employer] [facility] Address [address] [place] [address] Care Team Providers Care Paper Bag Machine Operator Name Role Phone Sofia Montalvo MD Primary Care Provide r Encounter Details Date Type Department Care Team (Latest Contact Info) Description 12/20/2020 Abstract [facility] CONVERSIONS Dental, Provider, DDS Social History [...] Support [facility] MEDICINE [address] [place] [address] 10/27/2025 1:30 PM EST Office Visit [facility] OPTOMETRY [address] [place] [address] Marshall, Celina, OD [address] [place] [address] 12/21/2025 1:30 PM EDT Office Visit [facility] ADULT DENTAL [address] [place] [address] Socorro Johnson documented as of this encounter Visit Diagnoses Not on filedocumented in this encounter Care Teams Paper Bag Machine Operator Relationship Specialty Start Date End Date Sofia Montalvo MD [address] [place] [address] PCP - General Family Medicine 09/23/21 documented as of this encounter
--- OUTSIDE RECORDS SUMMARY | 2025-06-22 21:07 | XMS_ITS | Encounter Summary ---
Author Organization [employer] Address [address] [address] Care Team Providers Care Cosmetics Counter Manager Name Role Phone Sofia Montalvo MD Primary Care Provide r Encounter Details Date Type Department Care Team (Late Contact Info) Description 10/20/2022 Orders Only [facility] MEDICINE [address] [place] [phone] Jasmyne Hutchison MD [address] [place] [phone] Blurry vision (Primary Dx) Social History Tobacco [...] Department Care Team (Late Contact Info) Description 06/25/2025 2:00 PM EDT Clinical Support [facility] MEDICINE [address] [place], [place] [phone] 10/27/2025 1:30 PM EST Office Visit [facility] OPTOMETRY [address] [place], [place] [phone] Marshall, Celina, OD [address] [place] [address] 12/21/2025 1:30 PM EDT Office Visit [facility] ADULT DENTAL [address] [place], [place] [phone] Socorro Johnson documented as of this encounter Visit Diagnoses Diagnosis Blurry vision- Primary Other specified visual disturbances documented in this encounter Care Teams Cosmetics Counter Manager Relationship Specialty Start Date End Date Sofia Montalvo MD [address] [place], [place] [phone] PCP - General Family Medicine 09/23/21 documented as of this encounter
--- OUTSIDE RECORDS SUMMARY | 2025-06-22 21:07 | XMS_ITS | Encounter Summary ---
Author Organization [employer] Address [address] [place] [address] Care Team Providers Care Marketing Copywriter Name Role Phone Sofia Montalvo MD Primary Care Provide r Reason for Visit * Reason Comments Med Refill Encounter Details Date Type Department Care Team ([facility] Contact Info) Description 09/29/2022 Refill [facility] [address] [place], [place] [phone] Mandie Burton, ANP [address] [place] [address] Social History Tobacco Use Types Packs/Day Years [...] Description 06/25/2025 2:00 PM EDT Clinical Support [facility] MEDICINE [address] [place], [place] [phone] 10/27/2025 1:30 PM EST Office Visit [facility] OPTOMETRY [address] [place] [address] Celina Olivares, OD [address] [place] [address] 12/21/2025 1:30 PM EDT Office Visit [facility] ADULT DENTAL [address] [place], [place] [phone] Socorro Johnson documented as of this encounter Visit Diagnoses Not on filedocumented in this encounter Care Teams Marketing Copywriter Relationship Specialty Start Date End Date Sofia Montalvo MD [address] [place], [place] [phone] PCP - General Family Medicine 09/23/21 documented as of this encounter
--- OUTSIDE RECORDS SUMMARY | 2025-06-22 21:07 | XMS_ITS | Encounter Summary ---
Author Organization [employer] Address [address] [place] [address] Care Team Providers Care Senior Research Engineer Name Role Phone Sofia Montalvo MD Primary Care Provide r Encounter Details Date Type Department Care Team (Latest Contact Info) Description 06/18/2025 Travel Social History Tobacco Use Types Packs/Day Years [...] AM EDT documented as of this encounter Functional Status * Over the [...] PM EDT Shilpa Grace MA * Feeling down, depressed, or hopeless Answer Date of Assessment Author More than half the days 06/18/2025 3:06 PM EDT Shlipa Grace MA * Trouble falling or staying [...] Questionnaire-9 Score Answer Date of Assessment Author 06/18/2025 3:06 PM EDT Shilpa Miller MA [...] Miller MA documented as of this encounter Plan of Treatment Upcoming Encounters Date Type Department Care Team (Late st Contact Info) Description 06/25/2025 2:00 PM EDT Clinical Support [facility] MEDICINE [address] [place] [address] 10/27/2025 1:30 PM EST Office Visit [facility] OPTOMETRY [address] [place] [address] Marshall, Celina, OD [address] [place] [address] 12/21/2025 1:30 PM EDT Office Visit [facility] ADULT DENTAL [address] [place] [address] Socorro Johnson documented as of this encounter Visit Diagnoses Not on filedocumented in this encounter Additional Health Concerns Assessment Noted Time PHQ-9 Depression Total Score: 15 2 025 3:06 PM EDT documented as of this encounter Care Teams Senior Research Engineer Relationship Specialty Start Date End Date Sofia Montalvo MD [address] [place] [address] PCP - General Family Medicine 09/23/21 documented as of this encounter
--- OUTSIDE RECORDS SUMMARY | 2025-06-22 21:07 | XMS_ITS | Encounter Summary ---
Author Organization [employer] Address [address] [facility] [address] [place] [address] Care Team Providers Care Hyperion Administrator Name Role Phone Sofia Montalvo MD Primary Care Provide r Reason for Visit * Reason Comments Med Refill Encounter Details Date Type Department Care Team ([facility] st Contact Info) Description 06/21/2025 Refill [facility] MED[facility] [address] [place], [place] [phone] Sofia Montalvo MD [address] [place], [place] [phone] Acute gastritis without hemorrhage, unspecified gastritis type; Mixed anxiety and depressive disorder Social History [...] Description 06/25/2025 2:00 PM EDT Clinical Support [facility] MEDICINE [address] [place] [address] 10/27/2025 1:30 PM EST Office Visit [facility] OPTOMETRY [address] [place] [address] Marshall, Celina, OD 230 [place] [address] 12/21/2025 1:30 PM EDT Office Visit [facility] ADULT DENTAL [address] [place] [address] Socorro Johnson documented as of this encounter Visit Diagnoses Diagnosis Acute gastritis without hemorrhage, unspecified gastritis type Mixed anxiety and depressive disorder Dysthymic disorder documented in this encounter Additional Health Concerns Assessment Noted Time PHQ-9 Depression Total Score: 15 025 3:06 PM EDT documented as of this encounter Care Teams Hyperion Administrator Relationship Specialty Start Date End Date Sofia Montalvo MD [address] [place] [address] PCP - General Family Medicine 09/23/21 documented as of this encounter
--- OUTSIDE RECORDS SUMMARY | 2025-06-22 21:07 | XMS_ITS | Encounter Summary ---
Author Organization [employer] Address [address] [facility] [address] [place] [address] Care Team Providers Care Software Solutions Architect Name Role Phone Sofia Montalvo MD Primary Care Provide r Encounter Details Date Type Department Care Team ([facility] st Contact Info) Description 03/13/2024 Telephone [facility] MEDICINE [address] [place], [place] [phone] Sofia Montalvo MD [address] [place], [place] [phone] Social History Tobacco Use Types Packs/Day Years [...] t he electric, gas, oil or water [employer] threatened to shut off services in your [...] Description 06/25/2025 2:00 PM EDT Clinical Support [facility] MEDICINE [address] [place] [address] 10/27/2025 1:30 PM EST Office Visit [facility] OPTOMETRY [address] [place] [address] Marshall, Celina, OD [address] [place] [address] 12/21/2025 1:30 PM EDT Office Visit [facility] ADULT DENTAL [address] [place] [address] Socorro Johnson documented as of this encounter Visit Diagnoses Not on filedocumented in this encounter Care Teams Software Solutions Architect Relationship Specialty Start Date End Date Sofia Montalvo MD [address] [place] [address] PCP - General Family Medicine 09/23/21 documented as of this encounter
--- OUTSIDE RECORDS SUMMARY | 2025-06-22 21:07 | XMS_ITS | Encounter Summary ---
Author Organization [employer] Address [address] [facility] [address] [place] [address] Care Team Providers Care Business Programmer Name Role Phone Sofia Montalvo MD Primary Care Provide r Encounter Details Date Type Department Care Team ([facility] Contact Info) Description 07/06/2023 Orders Only [facility] MEDICINE [address] [place] [address] [phone] Provider, MD Alli Social History Tobacco Use [...] Description 06/25/2025 2:00 PM EDT Clinical Support [facility] MEDICINE [address] [place], [place] [phone] 10/27/2025 1:30 PM EST Office Visit [facility] OPTOMETRY [address] [place], [place] [phone] Marshall, Celina, OD [address] [place], [place] [phone] 12/21/2025 1:30 PM EDT Office Visit [facility] ADULT DENTAL [address] [place] [address] Socorro Johnson documented as of this encounter Procedures Procedure Name Priority Date/Time Associated Diagnosis Comments BIOPSY CERVIX Routine 04/19/2021 documented in this encounter Results * Biopsy cervix (04/19/2021) us Historical Provider MD IN CLINIC/BEDSIDE ORDERAB LES Final Result documented in this encounter Visit Diagnoses Not on filedocumented in this encounter Care Teams Business Programmer Relationship Specialty Start Date End Date Sofia Montalvo MD [address] [place] [address] PCP - General Family Medicine 09/23/21 documented as of this encounter
--- OUTSIDE RECORDS SUMMARY | 2025-06-22 21:07 | XMS_ITS | Encounter Summary ---
Author Organization [employer] Address [address] [facility] [facility] [address] [facility] [address] [place] [address] Care Team Providers Care University President Name Role Phone Sofia Montalvo MD Primary Care Provide r Reason for Visit * Reason Onset Date Comments Durable Medical Equipment 06/22/2025 Encounter Details Date Type Department Care Team ([facility] Contact Info) Description 06/22/2025 Telephone [facility] MEDICINE [address] [place], [place] [phone] Sofia Montalvo MD [address] [place], [place] [phone] Durable Medical Equipment Social History Tobacco Use [...] encounter Miscellaneous Notes * Telephone Encounter - Shaywilliam Espinosa - 06/22/2025 10:50 AM EDT Tc from pt requesting script for pull ups stating she forgot to request it during last OV. Pt is also requesting an electric wheelchair of a specific size that would be able to fit in pt's home. Pt states she does own a ajith one bit the chair is too big and she is unable to use it on her own. If any questions please contact pt at [phone]. (Setswana Speaker) documented in this encounter Plan of Treatment Upcoming Encounters Date Type Department Care Team (Late st Contact Info) Description 06/25/2025 2:00 PM EDT Clinical Support [facility] MEDICINE [address] [place] [address] 10/27/2025 1:30 PM EST Office Visit [facility] OPTOMETRY [address] [place], [place] [phone] Marshall, Celina, OD [address] [place] [address] 12/21/2025 1:30 PM EDT Office Visit [facility] ADULT DENTAL [address] [place], [place] [phone] Socorro Johnson documented as of this encounter Visit Diagnoses Not on filedocumented in this encounter Additional Health Concerns Assessment Noted Time PHQ-9 Depression Total Score: 15 06/18/ 025 3:06 PM EDT documented as of this encounter Care Teams University President Relationship Specialty Start Date End Date Sofia Montalvo MD [address] [place], [place] [phone] PCP - General Family Medicine 09/23/21 documented as of this encounter
--- OUTSIDE RECORDS SUMMARY | 2025-06-22 21:07 | XMS_ITS | Encounter Summary ---
Author Organization [employer] Address [address] [facility] [address] [facility] [address] [place] [address] Care Team Providers Care Haulage Engine Operator Name Role Phone Sofia Montalvo MD Primary Care Provide r Reason for Visit * Reason Comments Med Refill Encounter Details Date Type Department Care Team ([facility] Contact Info) Description 08/23/2023 Refill [facility] MED[facility]INE [address] [place], [place] [phone] Sofia Montalvo MD [address] [place], [place] [phone] Other chronic pain Social History Tobacco Use [...] Description 06/25/2025 2:00 PM EDT Clinical Support [facility] MEDICINE [address] [place] [address] 10/27/2025 1:30 PM EST Office Visit [facility] OPTOMETRY [address] [place] [address] Marshall, Celina, OD [address] [place] [address] 12/21/2025 1:30 PM EDT Office Visit [facility] ADULT DENTAL [address] [place] [address] Socorro Johnson documented as of this encounter Visit Diagnoses Diagnosis Other chronic pain documented in this encounter Care Teams Haulage Engine Operator Relationship Specialty Start Date End Date Sofia Montalvo MD [address] [place] [address] PCP - General Family Medicine 09/23/21 documented as of this encounter
--- OUTSIDE RECORDS SUMMARY | 2025-06-22 21:08 | XMS_ITS | Encounter Summary ---
Author Organization [employer] Address [address] [facility] [place] [address] Care Team Providers Care Travel Ticketing Reviewer Name Role Phone Sofia Montalvo MD Primary Care Provide r Encounter Details Date Type Department Care Team ([facility] Contact Info) Description 06/22/2025 Orders Only GENERIC EXTERNAL DATA DEPARTMENT Provider, Generic External Data Social History Tobacco Use Types Packs/Day Years [...] Description 06/25/2025 2:00 PM EDT Clinical Support [facility] MEDICINE [address] [place] [address] 10/27/2025 1:30 PM EST Office Visit [facility] OPTOMETRY [address] [place] [address] Marshall, Celina, OD [address] [place] [address] 12/21/2025 1:30 PM EDT Office Visit [facility] ADULT DENTAL [address] [place] [address] Socorro Johnson documented as of this encounter Procedures Procedure Name Priority Date/Time Associated Diagnosis Comments CBC WITH AUTO DIFFERENTIAL Routine 06/22/2025 3:52 PM EDT VITAMIN B12 Routine 06/22/2025 3:52 PM EDT documented in this encounter Results * Vitamin B12 (06/22/2025 3:52 PM EDT) Vitamin B12 419 200 - 900 pg/mL [facility] Comment:NORMAL 200-900 PG/ML INDETERMINATE 160-199 PG/ML DEFICIENT < 160 PG/ML 06/22/2025 3:52 PM EDT 06/22/2025 5:25 PM EDT us Sofia Art MD LAB BLOOD ORDERABLES Final Result [facility] [address] [place] [address] [phone] * (ABNORMAL) CBC auto differential (06/22/2025 3:52 PM EDT) White Blood Count 11.5(H) 4.8 - 10.8 X10*3/uL [facility] Red Blood Count 3.76(L) 4.20 - 5.50 X10*6/uL [facility] Hemoglobin 11.7(L) 12.0 - 16.0 g/dl [facility] Hematocrit 35.2(L) 37.0 - 47.0 % [facility] Mean Corpuscular Volume 93.6 80.0 - 98.0 fL [facility] Mean Corpuscular Hemoglobin 31.1 27.0 - 33.0 pg [facility] Mean Corpuscular HGB Conc 33.2 31.0 - 35.0 g/dl [facility] Red Cell Distribution Width 12.8 11.0 - 16.0 % [facility] Platelet Count 323 160 - 400 X10*3/uL [facility] Mean Platelet Volume 11.6 9.4 - 12.3 fL [facility] Neutrophils Percent Auto 69.0 45 - 73 % [facility] Imm Gran Pct Auto 0.3 0.0 - 0.4 % [facility] Lymphocytes Percent Auto 19.6(L) 20 - 40 % [facility] Monocytes Percent Auto 6.5 2 - 11 % [facility] Eosinophils Percent Auto 4.2(H) 0 - 4 % [facility] Basophils Percent Auto 0.4 0 - 2 % [facility] NRBC Pct Auto 0.0 0.0 - 0.2 /100WBC [facility] Neutrophils Absolute Auto 8.0 2.0 - 8.3 x10*3/uL [facility] Imm Gran Abs Auto 0.04(H) 0.00 - 0.03 X10*3/uL [facility] Lymphocytes Absolute Auto 2.3 1.2 - 4.9 X10*3/uL [facility] Monocytes Absolute Auto 0.8 0.1 - 1.2 X10*3/uL [facility] Eosinophils Absolute Auto 0.5(H) 0.0 - 0.4 X10*3/uL [facility] Basophils Absolute Auto 0.1 0.0 - 0.2 X10*3/uL [facility] NRBC Abs Auto 0.000 0.0 - 0.012 X10*3/uL [facility] 06/22/2025 3:52 PM EDT 06/22/2025 5:25 PM EDT us Generic External Data Provider LAB BLOOD ORDERAB LES Final Result [facility] [address] [place] [address] [phone] documented in this encounter Visit Diagnoses Not on filedocumented in this encounter Additional Health Concerns Assessment Noted Time PHQ-9 Depression Total Score: 15 06/18/2 025 3:06 PM EDT documented as of this encounter Care Teams Travel Ticketing Reviewer Relationship Specialty Start Date End Date Sofia Montalvo MD [address] [place] [phone] PCP - General Family Medicine 09/23/21 documented as of this encounter
--- OUTSIDE RECORDS SUMMARY | 2025-06-22 21:08 | XMS_ITS | Clinical Summary ---
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 30 capsule 1 024 Active fluticasone (Flonase) 50 MCG/ACT nasal sprayIndication [...] BY MOUTH AT BEDTIME 30 tablet 11 025 Active cetirizine (ZyrTEC) 10 MG tablet TAKE 1 TABLET BY MOUTH EVERYDAY AT NOON 90 tablet 3 025 Active cholecalciferol VITAMIN D (Vitamin D-3) 50 MCG (1999) tablet TAKE 1 TABLET BY MOUTH EVERYDAY AT NOON 90 tablet 3 025 Active Ascorbic Acid (vitamin C) 250 MG tablet TAKE 1 TABLET BY MOUTH EVERY OTHER DAY IN THE MORNING 45 tablet 1 025 Active hydrocortisone (Anusol-HC) 2.5 % rectal creamIndication [...] per day for 28 days. 28 tablet 025 Active dicyclomine (Bentyl) 10 MG capsule Take 10 mg by mouth 3 times daily. Active glucose blood (Scanbuy Ultra Test) test strip 1 each by Other route Once per day. 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) Take 1 tablet (500 mg) by mouth with breakfast. 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) Use once daily 100 each 12 025 [...] 2 times daily. 14 g 025 Active aluminum-magnes ium hydroxide-simet hicone (Maalox) 200-200-20 MG/5ML suspensionIndic ations:Acute gastritis, presence of bleeding unspecified, unspecified gastritis type Take 30 mL by mouth before breakfast, before lunch, before evening meal, and at bedtime. 1680 mL 1 025 Active acetaminophen (Tylenol 8 Hour) 650 MG ER tabletIndicatio ns:Lumbar disc disease Take 2 tablets (1,300 mg) by mouth every 8 (eight) hours if needed for mild pain. TAKE 1 TABLET BY MOUTH EVERY 8 HOURS NEEDED FOR MILD PAIN OR FOR MODERATE PAIN 60 tablet 3 025 Active losartan (Cozaar) 50 MG tabletIndicatio ns:Essential hypertension Take 1 tablet (50 mg) by mouth Once per day. 30 tablet 1 025 Active atenolol (Tenormin) 25 MG tabletIndicatio ns:Essential hypertension Take 1 tablet (25 mg) by mouth Once per day. 30 tablet 1 025 2025 Active omeprazole (PriLOSEC) [address] capsuleIndicati ons:Acute gastritis without hemorrhage, unspecified gastritis type TAKE 1 CAPSULE BY MOUTH TWICE DAILY IN THE MORNING AND IN THE EVENING 60 capsule 3 025 Active busPIRone (Buspar) 10 MG tabletIndicatio ns:Mixed anxiety and depressive disorder TAKE 1 AND 1/2 TABLETS BY MOUTH TWICE DAILY 90 tablet 1 025 Active doxepin (SINEquan) 50 MG capsuleIndicati ons:Mixed anxiety and depressive disorder TAKE 1 CAPSULE BY MOUTH AT BEDTIME 30 capsule 025 Active escitalopram (Lexapro) 10 MG tabletIndicatio ns:Mixed anxiety and depressive disorder TAKE 1 TABLET BY MOUTH EVERY MORNING 30 tablet 025 Active chlorhexidine (Peridex) 0.12 % solutionIndicat ions:Dental calculus,Dental plaque,Geograph ic tongue Swish 15 mL morning and night for 1 minute. Spit, do not swallow. Do not eat or drink for 30 minutes following use. 473 mL Active atenolol (Tenormin) 50 MG tabletIndicatio ns:Essential hypertension TAKE 1 TABLET BY MOUTH EVERY EVENING 30 tablet 5 025 2024 Discontinued ferrous gluconate (Ferate) 240 (27 Fe) MG tabletIndicatio ns:Iron deficiency anemia, unspecified iron deficiency anemia type TAKE 1 TABLET BY MOUTH EVERY OTHER DAY IN THE MORNING 15 tablet 5 025 2024 Discontinued(R eorder (will not trigger notification to Pharmacy)) acetaminophen (Tylenol 8 Hour) 650 MG ER tabletIndicatio ns:Lumbar disc disease Take 2 tablets (1,300 mg) by mouth every 8 (eight) hours if needed for mild pain. TAKE 1 TABLET BY MOUTH EVERY 8 HOURS NEEDED FOR MILD PAIN OR FOR MODERATE PAIN 60 tablet 3 025 2024 Discontinued(R eorder (will not trigger notification to Pharmacy)) losartan (Cozaar) 100 MG tabletIndicatio ns:Essential hypertension TAKE 1 TABLET BY MOUTH EVERYDAY AT NOON 90 tablet 1 2024 Discontinued(D ose adjustment) omeprazole (PriLOSEC) [address] capsuleIndicati ons:Acute gastritis without hemorrhage, unspecified gastritis type Take 1 capsule (40 mg) by mouth before breakfast and before evening meal. Do not crush or chew. 60 capsule 3 025 2024 Discontinued busPIRone (Buspar) 10 MG tabletIndicatio ns:Mixed anxiety and depressive disorder Take 1.5 tablets (15 mg) by mouth 2 times daily. 90 tablet 1 025 2024 Discontinued doxepin (SINEquan) 50 MG capsuleIndicati ons:Mixed anxiety and depressive disorder Take 1 capsule (50 mg) by mouth at bedtime. 30 capsule 1 025 2024 Discontinued escitalopram (Lexapro) 10 MG tabletIndicatio ns:Mixed anxiety and depressive disorder Take 1 tablet (10 mg) by mouth in the morning. 30 tablet 1 025 2024 Discontinued chlorthalidone (Hygroton) 50 MG tabletIndicatio ns:Essential hypertension TAKE 1 TABLET BY MOUTH EVERYDAY AT NOON 30 tablet 5 04/30/ 025 2024 Discontinued(S top taking at discharge) atenolol (Tenormin) 50 MG tabletIndicatio ns:Essential hypertension TAKE 1 TABLET BY MOUTH EVERY EVENING 30 tablet 5 05/28/ 025 2024 Discontinued(S top taking at discharge) losartan (Cozaar) 50 MG tablet Take 50 mg by mouth Once per day. 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 Blunt trauma of face 06/18/2025 Assessment & Plan (06/18/2025 4:32 PM EDT): She may take acetaminophen as needed Acute pain of left knee 03/11/2025 Assessment & Plan (03/11/2025 5:09 PM EDT): X-ray ordered patient will be contacted with results Orthopedics referral in Acute gastritis 03/11/2025 Assessment & Plan (06/18/2025 4:31 PM EDT): Extensive counseling about diet do not eat spicy or greasy food or takeout Continue with omeprazole 40 mg daily I added today MiraLAX to be taken as needed I refer her back to GI Assessment & Plan (03/11/2025 5:08 PM EDT): [...] contacted with results Dental caries 12/17/2024 Dental plaque 12/17/2024 Folliculitis 12/15/2024 Assessment & Plan (12/15/2024 [...] PM EDT): I will refer patient to account development specialist for evaluation of face, arm and [...] use of insulin 08/02/2023 Assessment & Plan (06/18/2025 4:30 PM EDT): Diabetes is: controlled - Lab Results Component Value Date HGBA1C 6.2 (A) 06/18/2025 HGBA1C 6.2 (A) 12/15/2024 HGBA1C 6.3 (A) 06/30/2024 - Lab Results Component Value Date MICROALBUR 4.8 08/07/2022 CREATININE 0.95 12/25/2024 -Changes: None - Continue current medications - Follow up: 3 months Assessment & Plan (12/15/2024 2:32 PM EDT): [...] Lumbar disc disease 07/02/2018 Assessment & Plan (06/18/2025 4:32 PM EDT): Continue to follow with pain management Assessment & Plan (03/11/2025 5:12 PM EDT): [...] 04/05/2012 Essential hypertension 04/05/2012 Assessment & Plan (06/18/2025 4:30 PM EDT): Blood pressure very elevated today I put [...] losartan to 100 mg I also ordered [facility] today to monitor renal function and electrolytes Assessment & Plan (03/11/2025 5:11 PM EDT): [...] organization. 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 Orders Only GENERIC EXTERNAL DATA DEPARTMENT Provider, Generic External Data 06/22/[address] [address] Sofia Montalvo MD Call Back Request 06/22/[address] [address] Sofia Montalvo MD Durable Medical Equipment 06/21/[address] [address] Sofia Montalvo MD Acute gastritis without hemorrhage, unspecified gastritis type; Mixed anxiety and depressive disorder 06/18/2025 2:00 PM EDT Office Visit [address] [address] Sofia Montalvo MD Lumbar disc disease (Primary Dx); Type 2 diabetes mellitus without complication, without long-term current use of insulin ([facility]); JAIME (acute kidney injury) ([facility]); Acute gastritis, presence of bleeding unspecified, unspecified gastritis type; Essential hypertension; Blunt trauma of face, initial encounter 06/18/2025 Travel 06/17/[address] [address] Sofia Montalvo MD Chart Prep 06/05/2025 1:15 PM EDT Office Visit [address] [address] Tyrell Madrigal MD Ecchymosis (Primary Dx); Excoriation; Inflamed skin tag 06/05/2025 Travel 05/29/2025 Refill [facility] [address] [place] [address] Sofia Montalvo MD Iron deficiency anemia, unspecified iron deficiency anemia type 05/27/2025 Refill [facility] [address] [place] [address] Sofia Montalvo MD Essential hypertension 05/26/2025 Telephone [facility] [address] [place] [address] Sofia Montalvo MD Hospital Follow-up; Nurse Triage 05/22/2025 Refill [facility] [address] [place] [address] Sofia Montalvo MD Mild intermittent asthma without complication 05/14/2025 Orders Only [facility] [address] [place] [address] Sofia Montalvo MD 05/14/2025 Telephone [facility] [address] [place] [phone] Crystal Head RN 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) 04/29/2025 Refill [facility] [address] [place] [address] Sofia Montalvo MD Mixed anxiety and depressive disorder 04/28/2025 Travel 04/27/2025 Refill [facility] [address] [place], [place] [phone] Sofia Montalvo MD Mixed anxiety and depressive disorder 03/31/2025 Refill [facility] [address] [place] [address] Sofia Montalvo MD Type 2 diabetes mellitus with other specified complication, unspecified whether usp insulin use ([facility]) from Last 3 Months Immunizations Immunization Administration [...] Pressure 162/82 06/22/2025 3:20 PM EDT Pulse 80 06/18/2025 2:26 PM EDT Temperature 36.6 C (97.9 F) 06/18/2025 2:26 PM EDT Respiratory Rate 20 06/18/2025 2:26 PM EDT Oxygen Saturation 95% 06/05/2025 1:30 PM EDT Inhaled Oxygen Concentration - - Weight 79.9 kg (176 lb 2 oz) 06/18/2025 2:26 PM EDT Height 157.5 cm (5' 2 ) 06/18/2025 2:26 PM EDT Body Mass Index 32.21 06/18/2025 2:26 PM EDT Plan of Treatment Upcoming Encounters Date Type Department Care Team (Late st Contact Info) Description 06/25/2025 2:00 PM EDT Clinical Support [facility] [address] [place] [address] 10/27/2025 1:30 PM EST Office Visit [facility] [address] [place] [address] Celina Olivares, OD [address] [place] [address] 12/21/2025 1:30 PM EDT Office Visit [facility] [address] [place] [address] Socorro Johnson Health Maintenance Due Date Last Done Comments CT Colonography 1959 Dental X-Ray: Bitewings 1959 Dental X-Ray: Full Mouth 1959 FIT DNA/Cologuard 1959 FIT 1959 FOBT 1960 Sigmoidoscopy 1959 Diabetes: Foot Exam 1969 Hepatitis C Screening 1977 Lipid Panel 12/23/2024 06/22/2025, 12/06, 08/07/2022, Additional history exists Diabetes: Urine Protein Screening 02/17/2025 06/22/2025, 02/18/2024, 08/07/2022, Additional history exists COVID-19 Vaccine ( season) 2025 10/05/2021, 02/11/2021, 01/14/2021 Influenza Vaccine (#1) 2025 , 07/27/2022, 07/28/2021, Additional history exists Mammogram 09/12/2025 09/12/2024, 06/09, 06/21/2022, Additional history exists Alcohol/Substance Use Screening 12/15/2025 12/15/2024 SDOH Screening 12/15/2025 12/15/2024 Depression Monitoring 12/16/2025 06/18/2025, 025 Diabetes: Hemoglobin A1C 12/16/2025 025, 12/15/2024, 06/30/2024, Additional history exists Dental Oral Exam 12/21/2025 06/22/2025, 09/2025, 09/11/2022 Dental Prophylaxis 12/21/2025 06/22/2025, 0 12/17/2024, 09/11/2022 Tobacco Screening 06/22/2026 06/22/2025 Eye Exam 09/09/2026 09/09/2024, 12/0 12/2023, 09/09/2024, [...] Procedure Name Priority Date/Time Associated Diagnosis Comments VITAMIN B12 Routine 06/22/2025 3:52 PM EDT CBC WITH AUTO DIFFERENTIAL Routine 06/22/2025 3:52 PM EDT TSH W/REFLEX TO FT4 Routine 06/22/2025 3 :52 PM EDT Swelling COMPREHENSIVE METABOLIC PANEL Routine 06/22/2025 3:52 PM EDT Swelling Type 2 diabetes mellitus without complication, without long-term current use of insulin (CMS/HCC) ALBUMIN, RANDOM URINE W/CREATININE Routine 06/22/2025 3:52 PM EDT Swelling Type 2 diabetes mellitus without complication, without long-term current use of insulin (CMS/HCC) LIPID PANEL, STANDARD Routine 06/22/2025 3:52 PM EDT Type 2 diabetes mellitus without complication, without long-term current use of insulin (CMS/HCC) PERIODIC ORAL EVALUATION - ESTABLISHED PATIENT Routine 06/22/2025 3:00 PM EDT CASE PRESENTATION, DETAILED AND EXTENSIVE TREATMENT PLANNING Routine 06/22/2025 3:00 PM EDT ORAL HYGIENE INSTRUCTIONS Routine 06/22/2025 3:00 PM EDT Dental calculus Dental plaque PROPHYLAXIS - ADULT Routine 06/22/2025 3 :00 PM EDT Dental calculus Dental plaque POCT GLYCATED HEMOGLOBIN, TOTAL Routine 06/18/2025 2:28 PM EDT Type 2 diabetes mellitus without complication, without long-term current use of insulin (CMS/HCC) POCT GLUCOSE Routine 06/18/2025 2:28 PM EDT Type 2 diabetes mellitus without complication, without long-term current use of insulin (CMS/HCC) BI MAMMOGRAM SCREENING TOMOSYNTHESIS BILATERAL Routine 09/12/2024 1:15 PM EST THINPREP IMAGING PAP AND HPV MRNA E6/E7 WITH REFLEX TO HPV 16,18/45 Routine 07/30/2024 2:16 PM EDT HM COLONOSCOPY Routine 04/04/2023 from Last 3 Months or Most Recently Relevant to Health Maintenance Results * TSH W/Reflex to FT4 (06/22/2025 3:52 PM EDT) Pathologist [facility] TSH reflex Free T4 1.65 0.32 - 4.0 uIU/mL [facility] Blood Venous blood specimen / Unknown 06/22/2025 3:52 PM EDT 06/22/2025 5:25 PM EDT us Sofia Art MD LAB BLOOD ORDERABLES Final Result Performing Organization Address [facility] Co de Phone Number [facility] [address] [place] [address] [phone] * Albumin, Random Urine W/Creatinine (06/22/2025 3:52 PM EDT) Pathologist [facility] Creatinine, Urine 184.97 mg/dL [facility] Microalbumin Urine 20.0 mg/L [facility] Microalbum Creatinine Ratio Ur 10.8 <30 ug/mg cr [facility] Comment:Albumin/Creatinine R atio Reference Ranges: Normal: < 30 ug/mg creatinine Microalbuminuria: 30 - 300 ug/mg creatinineClinical Albuminuria: > 300 ug/mg creatinine Urine (Urine, Random) 06/22/2025 3:52 PM EDT 06/22/2025 5:35 PM EDT us Sofia Art MD LAB URINE ORDERABLES Final Result Performing Organization Address [facility] Co de Phone Number [facility] [address] [place] [phone] * (ABNORMAL) CBC auto differential (06/22/2025 3:52 PM EDT) Pathologist [facility] White Blood Count 11.5(H) 4.8 - 10.8 X10*3/uL [facility] Red Blood Count 3.76(L) 4.20 - 5.50 X10*6/uL [facility] Hemoglobin 11.7(L) 12.0 - 16.0 g/dl [facility] Hematocrit 35.2(L) 37.0 - 47.0 % [facility] Mean Corpuscular Volume 93.6 80.0 - 98.0 fL [facility] Mean Corpuscular Hemoglobin 31.1 27.0 - 33.0 pg [facility] Mean Corpuscular HGB Conc 33.2 31.0 - 35.0 g/dl [facility] Red Cell Distribution Width 12.8 11.0 - 16.0 % [facility] Platelet Count 323 160 - 400 X10*3/uL [facility] Mean Platelet Volume 11.6 9.4 - 12.3 fL [facility] Neutrophils Percent Auto 69.0 45 - 73 % [facility] Imm Gran Pct Auto 0.3 0.0 - 0.4 % [facility] Lymphocytes Percent Auto 19.6(L) 20 - 40 % [facility] Monocytes Percent Auto 6.5 2 - 11 % [facility] Eosinophils Percent Auto 4.2(H) 0 - 4 % [facility] Basophils Percent Auto 0.4 0 - 2 % [facility] NRBC Pct Auto 0.0 0.0 - 0.2 /100WBC [facility] Neutrophils Absolute Auto 8.0 2.0 - 8.3 x10*3/uL [facility] Imm Gran Abs Auto 0.04(H) 0.00 - 0.03 X10*3/uL [facility] Lymphocytes Absolute Auto 2.3 1.2 - 4.9 X10*3/uL [facility] Monocytes Absolute Auto 0.8 0.1 - 1.2 X10*3/uL [facility] Eosinophils Absolute Auto 0.5(H) 0.0 - 0.4 X10*3/uL [facility] Basophils Absolute Auto 0.1 0.0 - 0.2 X10*3/uL [facility] NRBC Abs Auto 0.000 0.0 - 0.012 X10*3/uL [facility] 06/22/2025 3:52 PM EDT 06/22/2025 5:25 PM EDT us Generic External Data Provider LAB BLOOD ORDERAB LES Final Result Performing Organization Address [facility]/ZIP Co de Phone Number [facility] [address] [place] [phone] * Vitamin B12 (06/22/2025 3:52 PM EDT) Vitamin B12 419 200 - 900 pg/mL [facility] Comment:NORMAL 200-900 PG/ML INDETERMINATE 160-199 PG/ML DEFICIENT < 160 PG/ML 06/22/2025 3:52 PM EDT 06/22/2025 5:25 PM EDT us Sofia Art MD LAB BLOOD ORDERABLES Final Result Performing Organization Address [facility] de Phone Number [facility] [address] [place] [phone] * (ABNORMAL) Lipid Panel, Standard (06/22/2025 3:52 PM EDT) Triglycerides 260(H) <150 mg/dL [facility] Comment:Desirable Triglyceri de: less than 150 mg/dLBorderline High Triglyceride 150-199 mg/dLHigh Triglyceride: 200-499 mg/dLVery High Triglyceride: greater than or equal to 5OO mg/dL Cholesterol 188 <200 mg/dL [facility] Comment:Desirable Cholestero l: less than 200 mg/dLBorderline High Cholesterol: 200-239 mg/dLHigh Cholesterol: greater than 239 mg/dL LDL Cholesterol Calculated 89 <100 mg/dL [facility] Comment:Desirable LDL: less than 100 mg/dLNear Optimal/Above Optimal LDL: 110- 129 mg/dLBorderline High LDL: 130-159 mg/dLHigh LDL: 160-189 mg/dLVery High LDL: greater than or equal to 190 mg/dL HDL Cholesterol 47 >40 mg/dL [facility] Comment:Desirable HDL: great er than 40 mg/dL Note: This HDL assay may give artificially low results in patients with liver disease. Blood Venous blood specimen / Unknown 06/22/2025 3:52 PM EDT 06/22/2025 5:25 PM EDT Sofia Art MD LAB BLOOD ORDERABLES Final Result [facility] [address] [place] [address] [phone] * Comprehensive Metabolic Panel (06/22/2025 3:52 PM EDT) Sodium 140 135 - 145 mmol/L [facility] Potassium 4.4 3.3 - 5.1 mmol/L [facility] Chloride 105 96 - 108 mmol/L [facility] Carbon Dioxide 26 22 - 29 mmol/L [facility] Anion Gap 13 12 - 20 [facility] Urea Nitrogen (BUN) 11 9 - 16 mg/dL [facility] Creatinine, Serum 0.96 0.5 - 1.4 mg/dL [facility] Estimated Glomerular Filt Rate 58 [facility] Comment:Chronic Kidney Disea se: Estimated GFR < 60 mL/min/1.36v2Dooxaz Kidney Disease: Estimated GFR < 15 mL/min/1.73m2 Glucose 88 60 - 115 mg/dL [facility] Calcium 9.1 8.4 - 10.2 mg/dL [facility] Bilirubin, Total 0.2 0.0 - 1.0 mg/dL [facility] Aspartate Amino Transferase 29 5 - 31 U/L [facility] Alanine Aminotransferase 24 0 - 31 U/L [facility] Total Protein 7.1 6.5 - 8.0 g/dL [facility] Albumin Level 4.0 3.5 - 5.0 g/dL [facility] Alkaline Phosphatase 83 39 - 117 U/L [facility] Blood Venous blood specimen / Unknown 06/22/2025 3:52 PM EDT 06/22/2025 5:25 PM EDT Sofia Art MD LAB BLOOD ORDERABLES Final Result [facility] [address] [place] [address] [phone] * (ABNORMAL) POCT Hgb A1c (06/18/2025 2:28 [...] Media Lot # [id number] Lot# Expiration Date 11325 Blood Capillary blood specimen / Unknown 06/18/2025 2:28 PM EDT Sofia Art MD POINT OF CARE TEST EN TER/EDIT ORDERABLES Final Result * BI Mammogram Screening Tomosynthesis Bilateral (09/12/2024 1:15 PM EST) Anatomical Region Laterality Modality Breast Bilateral Mammography 09/12/2024 1:15 PM EST Narrative 09/18/2024 1:29 PM EST [facility] [address] [place] [address] Mammography Report Signed Patient: Norma Arcos MR#: [id number] : 1960 Acct:[id number] Age/Sex: 64 / F ADM Date: 09/12/24 Loc: HO.MAMMO Attending Dr: Aryan Estrella MD Ordering Physician: Aryan Estrella MD Results: 1Negativ e Date of Service: 09/12/24 Follow Up: 1 Year From Orig inal Mammogram Procedure(s): MM tomosynthesis screening BI Accession Number(s): [id number] cc: Sofia Montalvo MD; Aryan Estrella MD [...] by: Chelsi Beverly DO 09/18/2024 01:25 PM [facility] Dictated By: Chelsi Beverly DO Signed By: <Electronically signed by Chelsi Beverly DO in OV> 09/18/24 1325 DD/ 1315 TD/TT: 09/12/24 1338 University Relations Director: Procedure Note Donotuseinterpreter, Image - 09/19/2024 [facility] [address] [place] [address] Mammography Report Signed Patient: Norma ArcosMR#: [id number] : 9Acct:[id number] Age/Sex: 64 / FADM Date: 09/12/24 Loc: HO.MAMMO Attending Dr: Aryan Estrella MD Ordering Physician: Aryan Estrella MDResults: 1Negativ e Date of Service: 09/12/24Follow Up: 1 Year From Orig inal Mammogram Procedure(s): MM tomosynthesis screening BI Accession Number(s): [id number] cc: Sofia Montalvo MD; Aryan Estrella MD [...] by: Chelsi Beverly DO 09/18/2024 01:25 PM [facility] Dictated By: Chelsi Beverly DO Signed By: <Electronically signed by Chelsi Beverly DO in OV> 09/18/24 1325 DD/ 1315 TD/TT: 09/12/24 1338 University Relations Director: [facility] External Provider IMG BI PROCEDURES Edited Result - Final * ThinPrep Imaging Pap and HPV mRNA E6/E7 with Reflex to HPV 16,18/45 (07/30/2024 2:16 PM EDT) HPV 16 RNA KYP [facility] HPV 18/45 RNA [facility] HPV nRNA E6/E7 Not Detected Not Detected [facility] Comment:Methodology: Transcr iption-Mediated AmplificationThis assay detects E6/E7 viral messenger RNA (mRNA) from 14high-risk HPV types (16,18,31,33,35,39,45,51,52,56,58,59,66,68).Cervical sources are required for HPV testing.If a vaginal source from a patient who has had atotal hysterectomy with removal of cervix wassubmitted, please contact the testing laboratoryfor alternative testing options.For additional information, please refer [email or web address](This link if provided for information/educational purposes only.)THIS TEST WAS PERFORMED AT:[facility] [address] [id number] ALBERT MD SOURCE: SEE NOTE [facility] Comment:Cervix Report Status: [facility] Clinical Information: SEE NOTE [facility] Comment:Postmenopausal LMP: SEE NOTE [facility] Comment:PM Prev. PAP: SEE NOTE [facility] Comment:2022 Prev. BX: SEE NOTE [facility] Comment:NONE GIVEN Statement Of Adequacy: SEE NOTE [facility] Comment:Satisfactory for hailey luation.Endocervical/transformation zone componentpresent. General Categorization: [facility] Interpretation/Result: SEE NOTE [facility] Comment:Cytology Results: Ne gative for intraepitheliallesion or malignancy. Cytology Comment SEE NOTE [facility] Comment:This Pap test has be en evaluated with computerassisted technology. Machine Tool Rebuilder: SEE NOTE [facility] Comment:RXB, CT(ASCP)CT scre ening location: [place] [address] Review Machine Tool Rebuilder: SEE NOTE [facility] Comment:KF, CT(ASCP)CT scree omari location: [place] [address] Pathologist [facility] PAP Infection [facility] See Note SEE [facility] Comment:EXPLANATORY NOTE:The Pap is a screening test for cervical cancer. It isnot a diagnostic test and is subject to false negativeand false positive results. It is most reliable when asatisfactory sample, regularly obtained, is submittedwith relevant clinical findings and history, and whenthe Pap result is evaluated along with historic andcurrent clinical information. 07/30/2024 2:16 PM EDT 07/30/2024 3:50 PM EDT Narrative [facility] - 08/04/2024 3:28 PM EDT [...] Provider LAB PATHOLOGY ORD ERABLES Final Result [facility] [address] [place] [address] [phone] * Colonoscopy (04/04/2023) Colonoscopy Normal Normal us Sherri Britton MD HEALTH MAINTENANCE Final Result from Last 3 Months or Most Recently Relevant to Health Maintenance Insurance [facility] [employer] OPT[employer] (O D-SNP) DENTAL [facility] Care Teams Rent Control Office Manager Relationship Specialty Start Date End Date Sofia Montalvo MD [address] [place] [phone] PCP - General Family Medicine 09/23/21
--- OUTSIDE RECORDS SUMMARY | 2025-06-22 21:08 | XMS_ITS | Encounter Summary ---
Author Organization [employer] Address [address] [place] [address] Care Team Providers Care Marketing Information Manager Name Role Phone Sofia Montalvo MD Primary Care Provide r Encounter Details Date Type Department Care Team ([facility] st Contact Info) Description 05/14/2025 Orders Only [facility] [address] [place], [place] [phone] Sofia Montalvo MD [address] [place], [place] [phone] Social History Tobacco Use Types Packs/Day Years [...] 06/25/2025 2:00 PM EDT Clinical Support [facility] [address] [place] [address] 10/27/2025 1:30 PM EST Office Visit [facility] OPTOMETRY [address] [place] [address] Marshall, Celina, OD [address] [place] [address] 12/21/2025 1:30 PM EDT Office Visit [facility] ADULT DENTAL [address] [place] [address] Socorro Johnson documented as of this encounter Visit Diagnoses Not on filedocumented in this encounter Additional Health Concerns Assessment Noted Time PHQ-9 Depression Total Score: 15 025 1:50 PM EDT documented as of this encounter Care Teams Marketing Information Manager Relationship Specialty Start Date End Date Sofia Montalvo MD [address] [place] [address] PCP - General Family Medicine 09/23/21 documented as of this encounter
--- OUTSIDE RECORDS SUMMARY | 2025-06-22 21:08 | XMS_ITS | Encounter Summary ---
Author Organization [employer] Address [address] [place] [address] Care Team Providers Care Geography Head Name Role Phone Sofia Montalvo MD Primary Care Provide r Reason for Visit * Reason Comments Med Refill Encounter Details Date Type Department Care Team ([facility] st Contact Info) Description 11/28/2024 Refill [facility] [address] [place], [place] [phone] Sofia Montalvo MD [address] [place], [place] [phone] Chronic diarrhea Social History Tobacco Use Types [...] EDT Clinical Support [facility] [address] [place] [address] 10/27/2025 1:30 PM EST Office Visit [facility] OPTOMETRY [address] [place] [address] Marshall, Celina, OD [address] [place] [address] 12/21/2025 1:30 PM EDT Office Visit [facility] ADULT DENTAL [address] [place] [address] Socorro Johnson documented as of this encounter Visit Diagnoses Diagnosis Chronic diarrhea Diarrhea documented in this encounter Care Teams Geography Head Relationship Specialty Start Date End Date Sofia Montalvo MD [address] [place] [address] PCP - General Family Medicine 09/23/21 documented as of this encounter
--- OUTSIDE RECORDS SUMMARY | 2025-06-22 21:08 | XMS_ITS | Encounter Summary ---
Author Organization [employer] Address [address] [place] [address] Care Team Providers Care Sheet Metal Helper Name Role Phone Sofia Montalvo MD Primary Care Provide r Reason for Visit * Reason Onset Date Comments Chart Prep 06/17/2025 Encounter Details Date Type Department Care Team ([facility] Contact Info) Description 06/17/2025 Telephone [facility] [address] [place], [place] [phone] Sofia Montalvo MD [address] [place], [place] [phone] Chart Prep Social History Tobacco Use Types [...] Labs: done Images: done Referrals: appointment pending [facility] Nephrology, [facility] Ortho Note-05/04/25 Vaccines due: Covid and Flu Screenings: foot exam Overdue care gaps: A1c, Glucose, PHQ-9, and KRISTA-7 documented in this encounter Plan of Treatment Upcoming Encounters Date Type Department Care Team (Late st Contact Info) Description 06/25/2025 2:00 PM EDT Clinical Support [facility] [address] [place] [address] 10/27/2025 1:30 PM EST Office Visit [facility] OPTOMETRY [address] [place] [address] Celina Olivares, OD [address] [place] [address] 12/21/2025 1:30 PM EDT Office Visit [facility] ADULT DENTAL [address] [place], [place] [phone] Socorro Johnson documented as of this encounter Visit Diagnoses Not on filedocumented in this encounter Additional Health Concerns Assessment Noted Time PHQ-9 Depression Total Score: 15 025 1:50 PM EDT documented as of this encounter Care Teams Sheet Metal Helper Relationship Specialty Start Date End Date Sofia Montalvo MD [address] [place], [place] [phone] PCP - General Family Medicine 09/23/21 documented as of this encounter
--- OUTSIDE RECORDS SUMMARY | 2025-06-22 21:08 | XMS_ITS | Encounter Summary ---
Author Organization [employer] Address [address] [place] [address] Care Team Providers Care Fat Pressroom Worker Name Role Phone Sofia Montalvo MD Primary Care Provide r Reason for Referral * Consultation (Routine) - Pending Review Specialty Diagnoses / Procedures Referred By Contshahida t Referred To Contact Pharmacy Diagnoses Essential hypertension Alaina Clark MD [address] [place] [address] Phone: tel: fax: Referral ID Status Reason Start Date Expiration Date Visits Requested Visits Authorized [id number] Pending Review Continuity of Care 03/09/2025 03/09/2026 6 6 Encounter Details Date Type Department Care Team ([facility] st Contact Info) Description 03/06/2025 Orders Only [facility] [address] [place], [place] [phone] Alaina Clark MD [address] [place], [place] [phone] Essential hypertension (Primary Dx) Social History Tobacco [...] 2:00 PM EDT Clinical Support [facility] [address] [place] [address] 10/27/2025 1:30 PM EST Office Visit [facility] OPTOMETRY [address] [place] [address] Marshall, Celina, OD [address] [place] [address] 12/21/2025 1:30 PM EDT Office Visit [facility] ADULT DENTAL [address] [place] [address] Socorro Johnson Scheduled Referrals Name Type Priority Associated Diagnoses Orde r Schedule Referral to Pharmacy MTM Outpatient Referral Routine Essential hypertension Ordered: 03/09/2025 documented as of this encounter Visit Diagnoses Diagnosis Essential hypertension- Primary Unspecified essential hypertension documented in this encounter Additional Health Concerns Assessment Noted Time PHQ-9 Depression Total Score: 15 025 1:50 PM EDT documented as of this encounter Care Teams Fat Pressroom Worker Relationship Specialty Start Date End Date Sofia Montalvo MD [address] [place] [address] PCP - General Family Medicine 09/23/21 documented as of this encounter
--- OUTSIDE RECORDS SUMMARY | 2025-06-22 21:08 | XMS_ITS | Clinical Summary ---
Author Organization [facility] [place] Address [address] [place] [address] Phone Care Team Providers Care Teacher Aide Clerical Name Role Phone Ramon Oropeza NP Primary Care Provider [phone] Allergies No known active allergies Medications albuterol [...] Type Department Care Team Description 06/04/2025 Telephone [facility] Hematology Oncology [address] [place] [address] [place], [place] 05/22/2025 8:54 PM EDT - 05/24/2025 2:06 PM EDT Hospital Encounter [facility] [address] [place] [address] Brandin López MD Ghauri, Baber, MD Hardee, Jamaal A, MD Near syncope (Primary Dx); Fall, initial encounter; JAIME (acute kidney injury) ([facility] V24) Discharge Disposition: Home or Self Care [...] on file Sexual Orientation Not on file Obstetrics History Last Filed Vital Signs Vital [...] of7 resultswithin the time period is included. [facility] Glucose POCT 114(H) 70 - 110 mg/dL 05/24/2025 11:28 AM EDT [facility] Blood Capillary blood specimen / Unknown 05/24/2025 11:27 AM EDT 05/24/2025 11:29 AM EDT Rolando Farmer MD LAB POINT OF CARE TE ST DOCKED DEVICE UNSOLICITED RESULTS Final Result [facility] [address] [place] [address], [place] [phone] * (ABNORMAL) TRANSTHORACIC ECHOCARDIOGRAM (TTE) COMPLETE (05/24/2025 11:20 AM EDT) [facility] LV EDV (A2C) 93 mL CV PACS [...] 86 mL CV PACS Left Atrium Minor [place] 5.5 cm CV PACS Left Atrium Major [place] 6.4 cm CV PACS LA Area Sys (A2C) 20 cm2 CV PACS LA Area Sys (A4C) 26 cm2 CV PACS LA Volume (BP) 73 mL CV PACS RA Area 16.7 cm2 CV PACS RA 2D Volume 42 mL CV PACS RA Major [place] 5.7 cm CV PACS RA Major [place] 5.7 cm CV PACS RA Minor [place] 3.6 cm CV PACS RA Minor [place] 3.6 cm CV PACS Aortic Valve Cusp [...] Valsalva 3.0 cm CV PACS MV Deceleration Hodgeman 5.1 m/s2 CV PACS E Wave Deceleration [...] was adequate. Additional technique includes myocardial strain. Albert Latif MD CV ECHO PROCEDURES Final Result * (ABNORMAL) CBC auto differential (05/24/2025 7:53 AM EDT) Only the most recent of2 resultswithin the time period is included. WBC 8.4 3.8 - 11.0 K/mcL LAB HEMETOLOGY METHOD 05/24/2025 9:[facility] RBC 3.58(L) 3.90 - 5.20 M/mcL LAB HEMETOLOGY METHOD 05/24/2025 9:15 AM [facility] Hemoglobin 11.1(L) 12.0 - 16.0 g/dL LAB HEMETOLOGY METHOD 05/24/2025 9:15 AM [facility] Hematocrit 34.0(L) 35.0 - 48.0 % LAB HEMETOLOGY METHOD 05/24/2025 9:15 AM [facility] MCV 95.0 80.0 - 100.0 FL LAB HEMETOLOGY METHOD 05/24/2025 9:15 AM [facility] MCH 31.0 27.0 - 34.0 pcg LAB HEMETOLOGY METHOD 05/24/2025 9:15 AM [facility] MCHC 32.7 31.0 - 37.0 g/dL LAB HEMETOLOGY METHOD 05/24/2025 9:15 AM [facility] RDW 14.0 11.5 - 14.5 % LAB HEMETOLOGY METHOD 05/24/2025 9:15 AM [facility] Platelets 257 150 - 400 K/mcL LAB HEMETOLOGY METHOD 05/24/2025 9:15 AM [facility] MPV 9.3 FL LAB HEMETOLOGY METHOD 05/24/2025 9:15 AM [facility] Neutrophils Relative 66.1 42.0 - 75.0 % LAB HEMETOLOGY METHOD 05/24/2025 9:15 AM [facility] Lymphocytes Relative 22.4 15.0 - 50.0 % LAB HEMETOLOGY METHOD 05/24/2025 9:15 AM [facility] Monocytes Relative 8.8 0.0 - 13.0 % LAB HEMETOLOGY METHOD 05/24/2025 9:15 AM [facility] Eosinophils Relative 1.7 0.0 - 7.0 % LAB HEMETOLOGY METHOD 05/24/2025 9:15 AM [facility] Basophils Relative 1.0 0.0 - 2.0 % LAB HEMETOLOGY METHOD 05/24/2025 9:15 AM [facility] Neutrophils Absolute 5.60(H) 1.50 - 5.10 K/mcL LAB HEMETOLOGY METHOD 05/24/2025 9:15 AM [facility] Lymphocytes Absolute 1.90 0.90 - 4.00 K/mcL LAB HEMETOLOGY METHOD 05/24/2025 9:15 AM [facility] Monocytes Absolute 0.70 0.20 - 1.00 K/mcL LAB HEMETOLOGY METHOD 05/24/2025 9:15 AM [facility] Eosinophils Absolute 0.10 0.00 - 0.61 K/mcL LAB HEMETOLOGY METHOD 05/24/2025 9:15 AM [facility] Basophils Absolute 0.10 0.00 - 0.21 K/mcL LAB HEMETOLOGY METHOD 05/24/2025 9:15 AM [facility] NRBC 0.1 % LAB HEMETOLOGY METHOD 05/24/2025 9:15 AM EDT [facility] NRBC Absolute 0.01(H) 0.00 - 0.00 K/mcL LAB HEMETOLOGY METHOD 05/24/2025 9:15 AM EDT [facility] Immature Granulocytes Relative 05/24/2025 9:15 AM EDT [facility] Immature Granulocytes Absolute 05/24/2025 9:15 AM EDT [facility] Blood Venous blood specimen / Unknown Venipuncture / Unknown 05/24/2025 7:53 AM EDT 05/24/2025 9:07 AM EDT Brandin López MD LAB BLOOD ORDERABLES Final R esult Performing Organization Address City/[facility]/ZIP Co de Phone Number [facility] [address] [place] [address], * Phosphorus (05/24/2025 7:53 AM EDT) Phosphorus 4.9 2.4 - 5.1 mg/dL LAB CHEMISTRY METHOD 05/24/2025 9:42 AM EDT [facility] Blood Venous blood specimen / Unknown Venipuncture / Unknown 05/24/2025 7:53 AM EDT 05/24/2025 9:04 AM EDT Brandin López MD LAB BLOOD ORDERABLES Final R esult [facility] [address] [place] [address], * Magnesium (05/24/2025 7:53 AM EDT) Magnesium 1.6 1.6 - 2.6 mg/dL LAB CHEMISTRY METHOD 05/24/2025 9:42 AM EDT [facility] Blood Venous blood specimen / Unknown Venipuncture / Unknown 05/24/2025 7:53 AM EDT 05/24/2025 9:04 AM EDT us Brandin López MD LAB BLOOD ORDERABLES Final R esult [facility] [address] [place] [address], * (ABNORMAL) Comprehensive metabolic panel (05/24/2025 7:53 AM EDT) Only the most recent of2 resultswithin the time period is included. Sodium 143 136 - 145 mmol/L LAB CHEMISTRY METHOD 05/24/2025 9:42 AM [facility] Potassium 3.9 3.5 - 5.1 mmol/L LAB CHEMISTRY METHOD 05/24/2025 9:42 AM [facility] Chloride 107 98 - 107 mmol/L LAB CHEMISTRY METHOD 05/24/2025 9:42 AM [facility] CO2 26 20 - 31 mmol/L LAB CHEMISTRY METHOD 05/24/2025 9:42 AM [facility] Anion Gap 10 10 - 17 LAB CHEMISTRY METHOD 05/24/2025 9:42 AM [facility] Glucose 100 74 - 106 mg/dL LAB CHEMISTRY METHOD 05/24/2025 9:42 AM [facility] BUN 22 9 - 23 mg/dL LAB CHEMISTRY METHOD 05/24/2025 9:42 AM [facility] Creatinine 1.62(H) 0.55 - 1.02 mg/dL LAB CHEMISTRY METHOD 05/24/2025 9:42 AM [facility] eGFR 35(L) >=60 mL/min/1 .73m2 LAB CHEMISTRY METHOD 05/24/2025 9:42 AM [facility] Comment:Calculation based on the Chronic Kidney Disease Epidemiology Collaboration (CKD-EPI) equation refit without adjustment for race. BUN/Creatinine Ratio 13.6 12.0 - 20.0 LAB CHEMISTRY METHOD 05/24/2025 9:42 AM T [facility] Calcium 8.9 8.3 - 10.6 mg/dL LAB CHEMISTRY METHOD 05/24/2025 9:42 AM [facility] AST (SGOT) 18 0 - 34 unit/L LAB CHEMISTRY METHOD 05/24/2025 9:42 AM [facility] ALT (SGPT) 16 10 - 49 unit/L LAB CHEMISTRY METHOD 05/24/2025 9:42 AM T [facility] Alkaline Phosphatase 59 46 - 116 unit/L LAB CHEMISTRY METHOD 05/24/2025 9:42 AM [facility] Total Protein 6.0 5.7 - 8.2 g/dL LAB CHEMISTRY METHOD 05/24/2025 9:42 AM [facility] Albumin 3.0(L) 3.4 - 5.0 g/dL LAB CHEMISTRY METHOD 05/24/2025 9:42 AM [facility] Total Bilirubin 0.3 0.3 - 1.2 mg/dL LAB CHEMISTRY METHOD 05/24/2025 9:42 AM [facility] Blood Venous blood specimen / Unknown Venipuncture / Unknown 05/24/2025 7:53 AM EDT 05/24/2025 9:04 AM EDT us Brandin López MD LAB BLOOD ORDERABLES Final R esult [facility] [address] [place] [address], * Troponin I high sensitivity (05/23/2025 12:27 PM EDT) Only the most recent of3 resultswithin the time period is included. High Sensitivity Troponin I <10 <=34 ng/L LAB CHEMISTRY METHOD 05/23/2025 1:34 PM EDT [facility] Blood Venous blood specimen / Unknown Venipuncture / Unknown 05/23/2025 12:27 PM EDT 05/23/2025 1:02 PM EDT Narrative [facility] - 05/23/2025 1:34 PM EDT REFERENCE RANGE: The plywood matcher 99th percentile upper reference limit(URL)is considered the cut-off normal value for high sensitivity Troponin as defined by the Fourth [place] Definition of [place]. MYOCARDIAL INJURY: Elevated Cardiac Troponin values with [...] imaging changes as defined by the Fourth [place] Definition of [place]. High Sensitivity Troponin I testing performed on our [employer] chemistry platform is affected by high doses of Biotin. The test may have falsely decreased results. Check with the patient's clinical history for testing interference. Rolando Farmer MD LAB BLOOD ORDERABLES Final Re sult [facility] [address] [place] [address], * ECG 12 lead (05/23/2025 12:05 PM EDT) Only the most recent of5 resultswithin the time period is included. [facility] Ventricular Rate ECG 59 BPM GEMUSE Atrial Rate 59 BPM GEMUSE P-R Interval 144 ms GEMUSE QRS Duration 90 ms GEMUSE Q-T Interval 452 ms GEMUSE QTc 447 ms GEMUSE P Wave [place] 64 degrees GEMUSE T [place] 21 degrees GEMUSE ECG Interpretation Sinus bradycardia Minimal voltage criteria for LVH, may be normal variant ( R in aVL ) Confirmed by Baron Childress ([id number]) on 05/28/2025 9:22:52 AM GEMUSE 05/23/2025 12:0 5 PM EDT 05/28/2025 9:22 AM EDT us Rolando Farmer MD ECG ORDERABLES Final Result GEMMELVINA * (ABNORMAL) Basic metabolic panel (05/23/2025 11:44 AM EDT) Sodium 144 136 - 145 mmol/L LAB CHEMISTRY METHOD 05/23/2025 12:34 PM EDT [facility] Potassium 4.3 3.5 - 5.1 mmol/L LAB CHEMISTRY METHOD 05/23/2025 12:34 PM [facility] Chloride 107 98 - 107 mmol/L LAB CHEMISTRY METHOD 05/23/2025 12:34 PM [facility] CO2 31 20 - 31 mmol/L LAB CHEMISTRY METHOD 05/23/2025 12:34 PM [facility] Anion Gap 6(L) 10 - 17 LAB CHEMISTRY METHOD 05/23/2025 12:34 PM [facility] Glucose 113(H) 74 - 106 mg/dL LAB CHEMISTRY METHOD 05/23/2025 12:34 PM [facility] BUN 20 9 - 23 mg/dL LAB CHEMISTRY METHOD 05/23/2025 12:34 PM [facility] Creatinine 1.53(H) 0.55 - 1.02 mg/dL LAB CHEMISTRY METHOD 05/23/2025 12:34 PM [facility] eGFR 38(L) >=60 mL/min/1 .73m2 LAB CHEMISTRY METHOD 05/23/2025 12:34 PM [facility] Comment:Calculation based on the Chronic Kidney Disease Epidemiology Collaboration (CKD-EPI) equation refit without adjustment for race. BUN/Creatinine Ratio 13.1 12.0 - 20.0 LAB CHEMISTRY METHOD 05/23/2025 12:34 PM EDT [facility] Calcium 9.1 8.3 - 10.6 mg/dL LAB CHEMISTRY METHOD 05/23/2025 12:34 PM EDT [facility] Blood Venous blood specimen / Unknown Venipuncture / Unknown 05/23/2025 11:44 AM EDT 05/23/2025 12:01 PM EDT [facility] LAB BLOOD ORDERABLES Final Res ult [facility] [address] [place] [address], * XR Thoracic Spine 2 Views (05/23/2025 2:26 AM EDT) Anatomical Region Laterality Modality Spine, T-spine Radiographic Linette ging Impressions 05/23/2025 3:16 AM EDT No acute thoracic spine osseous abnormality. /[place] Narrative 05/23/2025 3:16 AM EDT EXAM: XR [...] IMPRESSION: No acute thoracic spine osseous abnormality. /[place] Brandin López MD IMG XR PROCEDURES [...] ocular, orbital rim, or intraorbital injury seen. /[place] Per PQRS, all CT exams are [...] Signed Date: 05/23/2025 07:23 ET Workstation ID: [id number] Transcribed By: Self Edit Transcribed Date: 05/23/2025 [...] Signed Date: 05/23/2025 07:23 ET Workstation ID: [id number] Transcribed By: Self Edit Transcribed Date: 05/23/2025 07:23 ET us Brandin López MD IMG XR PROCEDURES Final Resu lt * Vitamin B12 and folate (05/22/2025 9:17 PM EDT) [facility] Vitamin B-12 355 211 - 911 pcg/mL LAB CHEMISTRY METHOD 05/23/2025 4:30 AM EDT [facility] Folate 13.1 >=5.4 ng/ml LAB CHEMISTRY METHOD 05/23/2025 4:30 AM EDT [facility] Blood Venous blood specimen / Unknown Venipuncture / Unknown 05/22/2025 9:17 PM EDT 05/22/2025 9:22 PM EDT us Albert Latif MD LAB BLOOD ORDERABLES Final Resul t [facility] [address] [place] [address], * Activated partial thromboplastin time (05/22/2025 9:17 PM EDT) [facility] aPTT 24.6 24.0 - 33.0 sec LAB COAGULATION METHOD 05/22/2025 9:39 PM EDT [facility] Blood Venous blood specimen / Unknown Venipuncture / Unknown 05/22/2025 9:17 PM EDT 05/22/2025 9:21 PM EDT Narrative [facility] - 05/22/2025 9:39 PM EDT PTT, [...] ORDERABLES Final Resul t Performing Organization Address City/[facility]/ZIP Co de Phone Number [facility] [address] [place] [address], [place] [phone] * Prothrombin time with INR (05/22/2025 9:17 PM EDT) Protime 12.5 11.5 - 14.7 sec LAB COAGULATION METHOD 05/22/2025 9:38 PM EDT [facility] INR 1.0 0.9 - 1.2 LAB COAGULATION METHOD 05/22/2025 9:38 PM EDT [facility] Blood Venous blood specimen / Unknown Venipuncture / Unknown 05/22/2025 9:17 PM EDT 05/22/2025 9:21 PM EDT us Geoffrey Cedeño MD LAB BLOOD ORDERABLES Final Resul t [facility] [address] [place] [address], [place] [phone] * B-type natriuretic peptide (05/22/2025 9:17 PM EDT) BNP 41 <=100 pcg/mL LAB CHEMISTRY METHOD 05/22/2025 9:58 PM EDT [facility] Blood Venous blood specimen / Unknown Venipuncture / Unknown 05/22/2025 9:17 PM EDT 05/22/2025 9:31 PM EDT Narrative [facility] - 05/22/2025 9:58 PM EDT B-Type Natriuretic Peptide (BNP) testing performed on our [employer] chemistry platform is affected by high doses of Biotin. The test may have falsely decreased results. Check with the patient's clinical history for testing interference. us Geoffrey Cedeño MD LAB BLOOD ORDERABLES Final Resul t Performing Organization Address City/[facility]/ZIP Co de Phone Number [facility] [address] [place] [address], [place] [phone] * Lipase (05/22/2025 9:17 PM EDT) Lipase 26 13 - 75 unit/L LAB CHEMISTRY METHOD 05/22/2025 9:51 PM EDT [facility] Blood Venous blood specimen / Unknown Venipuncture / Unknown 05/22/2025 9:17 PM EDT 05/22/2025 9:22 PM EDT us Geoffrey Cedeño MD LAB BLOOD ORDERABLES Final Resul t Performing Organization Address City/[facility]/ZIP Co de Phone Number [facility] [address] [place] [address], [place] [phone] from Last 3 Months Insurance [place]ICA[place] - [place] [facility] MEDICARE Member Subscriber Plan / Payer (Ef fective 2025-Present) Name:KIRTSIN ADRIAN Relation to Subscriber:Self Name:Kirstin Adrian Payer ID:[id number] Group ID:Not on file Type:Not on file Address: [address] [place] [id number] Advance Directives * Full Code - Confirmed [...] currently active code status orders. Care Teams Teacher Aide Clerical Relationship Specialty Start Date End Date Ramon Oropeza NP [address] [place] [address] PCP - General Family Medicine 09/18/18
--- OUTSIDE RECORDS SUMMARY | 2025-06-22 21:08 | XMS_ITS | Encounter Summary ---
Author Organization [employer] Address [address] [place] [address] Care Team Providers Care Time Broker Name Role Phone Sofia Montalvo MD Primary Care Provide r Reason for Visit * Reason Onset Date Comments Call Back Request 06/22/2025 Encounter Details Date Type Department Care Team ([facility] Contact Info) Description 06/22/2025 Telephone [facility] MEDICINE [address] [place], [place] [phone] Sofia Montalvo MD [address] [place], [place] [phone] Call Back Request Social History Tobacco Use Types Packs/Day Years [...] encounter Miscellaneous Notes * Telephone Encounter - Shay Espinosa - 06/22/2025 10:55 AM EDT Tc from pt requesting a call back to discuss mediation she was prescribed after the fall. Pt feels it's too much and is seeking advice from a nurse. Please contact pt at [phone]. (Malay Speaker) documented in this encounter Plan of Treatment Upcoming Encounters Date Type Department Care Team (Late st Contact Info) Description 06/25/2025 2:00 PM EDT Clinical Support [facility] MEDICINE [address] [place], [place] [phone] 10/27/2025 1:30 PM EST Office Visit [facility] OPTOMETRY [address] [place], [place] [phone] Marshall, Celina, OD [address] [place] [address] 12/21/2025 1:30 PM EDT Office Visit [facility] ADULT DENTAL [address] [place] [address] Socorro Johnson documented as of this encounter Visit Diagnoses Not on filedocumented in this encounter Additional Health Concerns Assessment Noted Time PHQ-9 Depression Total Score: 15 06/18/ 025 3:06 PM EDT documented as of this encounter Care Teams Time Broker Relationship Specialty Start Date End Date Sofia Montalvo MD [address] [place] [address] PCP - General Family Medicine 09/23/21 documented as of this encounter
--- OUTSIDE RECORDS SUMMARY | 2025-06-22 21:08 | XMS_ITS | Encounter Summary ---
Author Organization [employer] Address [address] [place] [address] Care Team Providers Care Plating And Point Assembly Supervisor Name Role Phone Sofia Montalvo MD Primary Care Provide r Reason for Visit * Reason Onset Date Comments Durable Medical Equipment 01/21/2025 Encounter Details Date Type Department Care Team ([facility] Contact Info) Description 01/21/2025 Telephone [facility] MEDICINE [address] [place], [place] [phone] Sofia Montalvo MD [address] [place], [place] [phone] Durable Medical Equipment Social History Tobacco Use [...] Description 06/25/2025 2:00 PM EDT Clinical Support [facility] MEDICINE [address] [place] [address] 10/27/2025 1:30 PM EST Office Visit [facility] OPTOMETRY [address] [place] [address] Marshall, Celina, OD [address] [place] [address] 12/21/2025 1:30 PM EDT Office Visit [facility] ADULT DENTAL [address] [place] [address] Socorro Johnson documented as of this encounter Visit Diagnoses Not on filedocumented in this encounter Additional Health Concerns Assessment Noted Time PHQ-9 Depression Total Score: 15 025 1:50 PM EDT documented as of this encounter Care Teams Plating And Point Assembly Supervisor Relationship Specialty Start Date End Date Sofia Montalvo MD [address] [place] [address] PCP - General Family Medicine 09/23/21 documented as of this encounter
--- OUTSIDE RECORDS SUMMARY | 2025-06-22 21:08 | XMS_ITS | Encounter Summary ---
Author Organization [employer] Address [address] [place] [address] Care Team Providers Care Strickler Attendant Name Role Phone Sofia Montalvo MD Primary Care Provide r Encounter Details Date Type Department Care Team ([facility] st Contact Info) Description 12/09/2024 Telephone [facility] MEDICINE [address] [place], [place] [phone] Sofia Montalvo MD [address] [place], [place] [phone] Social History Tobacco Use Types Packs/Day Years [...] t he electric, gas, oil or water [employer] threatened to shut off services in your [...] Description 06/25/2025 2:00 PM EDT Clinical Support [facility] MEDICINE [address] [place] [address] 10/27/2025 1:30 PM EST Office Visit [facility] OPTOMETRY [address] [place] [address] Marshlal, Celina, OD [address] [place] [address] 12/21/2025 1:30 PM EDT Office Visit [facility] ADULT DENTAL [address] [place] [address] Socorro Johnson documented as of this encounter Visit Diagnoses Not on filedocumented in this encounter Care Teams Strickler Attendant Relationship Specialty Start Date End Date Sofia Montalvo MD [address] [place] [address] PCP - General Family Medicine 09/23/21 documented as of this encounter
== END 2025-06-22 15:48 | disposition home or self-care (01) ==
LOC: HO.HHCL 15:47
PROVIDERS: Internal Medicine Gastroenterology; PCP Internal Medicine; Referring Provider Internal Medicine Hypertension Specialist; Visit Provider Internal Medicine
DX: E11.9 Type 2 diabetes mellitus without complications (principal); R19.5 Other fecal abnormalities; R60.9 Edema, unspecified
CPT/HCPCS: 36415; 80053; 80061; 81479; 82043; 82397; 82570; 82607; 83520; 84443; 85025; 86140; 88346; 88350

== ENCOUNTER 2025-07-06 12:58 | Outpatient (AMB) | payer OTHER, SELFPAY ==
[2025-07-06 13:10] VITALS: BP 170/84; PULSE 96; O2SAT 95; BMI 31.5
--- NOTE | 2025-07-06 13:10 | HO.NEPHOV_ITS ---
Vital Signs 07/06/25 13:10 07/06/25 13:20 Height 5 ft 2 in Weight 172 lb BMI 31.5 BP 170/84 H 140/70 H Blood Pressure Location Lt brachial Lt brachial Position Sitting Sitting Pulse 96 Pulse Source Pulse Oximeter Pulse Oximetry (%) 95 Oxygen Delivery Method Room Air Intake Visit Reasons: 1 yr follow up Transmission Rebuilder Required: Yes Transmission Rebuilder Name: [id number] MERVIN Accompanied by: Self / Same As Patient Allergies Seasonal Allergies Allergy (Mild, Verified 07/06/25 13:12) Unknown Medication List - Last Reconciled 07/06/25 by Kalen Negrete MD acetaminophen ER 650 mg PO DAILY albuterol sulfate 90 mcg/actuation (Ventolin HFA) 2 puffs PO Q4H PRN arformoterol (Brovana) 2 mL inhalation BID 30 days ascorbic acid (vitamin C) 250 mg PO DAILY atenolol 50 mg PO DAILY budesonide 0.5 mg (2 mL) inhalation BID 30 days calcium polycarbophil (Fiber-Lax) mg PO cetirizine 10 mg PO DAILY chlorthalidone 50 mg PO DAILY cholecalciferol (vitamin D3) 50 mcg PO DAILY clonazepam 0.5 mg PO DAILY dicyclomine 10 mg PO TID 30 days doxepin 50 mg PO BEDTIME escitalopram oxalate 10 mg PO DAILY ferrous gluconate 240 mg PO Q OTHER DAY fluticasone propionate 50 mcg/actuation 1 spray intranasal BID hydrocortisone 2.5% 1 appl GA BID-QID PRN 30 days ipratropium-albuterol 0.5 mg-3 mg(2.5 mg base)/3 mL 3 mL inhalation Q4-6H PRN 30 days losartan 50 mg PO DAILY lubiprostone (Amitiza) 16 mcg (2 x 8 mcg) PO BID 30 days metformin 500 mg PO BID mupirocin 2% 1 appl topical TID naloxone 4 mg/actuation 4 mg intranasal Q2M PRN 1 day pantoprazole 40 mg PO BID polyethylene glycol 3350 (Miralax) 17 grams PO DAILY 1 day pregabalin 150 mg PO BID 30 days simvastatin 40 mg PO BEDTIME zolpidem 5 mg PO BEDTIME PRN HPI Comments Details: 63-year-old woman with a history of obesity and hypertension has been referred for evaluation of hypertension and CKD. She was on meloxicam in the past which has been discontinued. She is being managed by pain management. As for the blood pressure she is on losartan 100 mg and chlorthalidone 50 mg a day. She is compliant with her medications. Today she is complaining of low back pain. No urinary symptoms No polyuria polydipsia. No shortness of breath. 03/11/24 Doing well today Interpretor service was used 07/06/2025. From renal standpoint she is doing well. No specific complaints today. [facility] Medical History Osteopenia Asthma-COPD overlap syndrome Lumbar back pain with radiculopathy affecting right lower extremity Sacroiliac joint dysfunction of right side Sacroiliitis Disc degeneration, lumbar HPV test positive Chronic pain syndrome Acute blood loss anemia Hypertension Osteoarthritis of right knee MENDENHALL (dyspnea on exertion) Presence of dental bridge Sleep apnea Diabetes Overflow stress urinary incontinence in female Urge incontinence Primary osteoarthritis of hands, bilateral Loose right total knee arthroplasty Hx of carpal tunnel syndrome Pulmonary nodules GERD (gastroesophageal reflux disease) Surgical History Hx of tubal ligation H/O knee surgery History of orthopedic surgery History of arthroplasty of right knee History of pubovaginal sling Hx of colonoscopy History of carpal tunnel release of both wrists History of esophagogastroduodenoscopy (EGD) Previous back surgery History of endometrial ablation Hx of section Family History Mother Diabetes Arthritis Brother Cancer Paternal Aunt Breast cancer Social History Household Members: None Housing: Apartment Are you a primary skin care technician to a significant other at home: No Do you presently have visiting nurse or other home services: No Alcohol intake: former Year quit: 2018 Patient Tobacco Use Status: Current everyday Tobacco user Tobacco use type: Cigarette Cigarettes Per Day: 5 Years Smoked: 2014 Second Hand Smoke Exposure: No Substance Use Type: Crack/Cocaine and Marijuana service: No Current occupational status: disabled Current occupation: rt handed Female Reproductive History Menstrual Age of Menarche: 11 Physical Exam Vital Signs: Last Vital Signs Pulse 96 07/06/25 13:10 BP 140/70 H 07/06/25 13:20 Pulse Ox 95 07/06/25 13:10 Oxygen Delivery Method Room Air 07/06/25 13:10 BMI result Body Mass Index 31.5 Results Reviewed Nephrology Results: Hgb, (12.0-16.0) 11.7 g/dl L 06/22/25 WBC, (4.8-10.8) 11.5 X10*3/uL H 06/22/25 Plt Count, (160-400) 323 X10*3/uL 06/22/25 Sodium, (135-145) 140 mmol/L 06/22/25 Potassium, (3.3-5.1) 4.4 mmol/L 06/22/25 Chloride, (96-108) 105 mmol/L 06/22/25 Carbon Dioxide, (22-29) 26 mmol/L 06/22/25 BUN, (9-16) 11 mg/dL 06/22/25 Creatinine, (0.5-1.4) 0.96 mg/dL 06/22/25 Calcium, (8.4-10.2) 9.1 mg/dL Δ 06/22/25 Urine Creatinine 184.97 mg/dL 06/22/25 Assessment & Plan Assessment & Plan (1) CKD (chronic kidney disease): Code(s): N18.9 - Chronic kidney disease, unspecified Category: Medical (2) Proteinuria: Code(s): R80.9 - Proteinuria, unspecified Category: Medical (3) Hypertension: Code(s): I10 - Essential (primary) hypertension Category: Medical Plan 63-year-old man with chronic kidney disease and proteinuria in a setting of hypertension obesity and diabetes mellitus. Recent urine microalbumin creatinine ratio was 333. She probably has underlying diabetic hypertensive kidney disease. She might have a component of acute kidney injury from hypoperfusion. She is on adequate dose of losartan with a high dose of chlorthalidone Needs to stay on low salt diet Renal function is stable at baseline She should avoid NSAIDs and other nephrotoxic Maintain adequate hydration. Coding Level of Care Code Est Pt Level 4 (16946) Diagnoses CKD (chronic kidney disease) N18.9 Proteinuria R80.9 Hypertension I10
[2025-07-06 13:20] VITALS: BP 140/70
== END 2025-07-06 13:22 | disposition home or self-care (01) ==
LOC: HO.HKA 12:58
PROVIDERS: PCP Internal Medicine; Visit Provider Internal Medicine Hypertension Specialist
DX: I12.9 Hypertensive chronic kidney disease with stage 1 through stage 4 chronic kidney disease, or unspecified chronic kidney disease (principal); N18.9 Chronic kidney disease, unspecified; R80.9 Proteinuria, unspecified
CPT/HCPCS: 99214

== ENCOUNTER → 2025-07-06 12:58 | Outpatient (BNVA) | payer OTHER, SELFPAY | PROVIDERS: PCP Internal Medicine; Visit Provider Internal Medicine Hypertension Specialist | DX: I10 Essential (primary) hypertension (principal); R80.9 Proteinuria, unspecified; E66.9 Obesity, unspecified; E11.9 Type 2 diabetes mellitus without complications; N18.9 Chronic kidney disease, unspecified | CPT/HCPCS: 99212 ==

== ENCOUNTER 2025-07-30 14:06 | Outpatient (AMB) | payer OTHER, SELFPAY ==
[2025-07-30 14:13] VITALS: BP 150/63; PULSE 64; RESP 16; O2SAT 95; BMI 31.3
--- NOTE | 2025-07-30 14:13 | MHC.OFFVIS ---
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 The pump was interrogated and adjustments were made see as below. Patient continues to complain on severe pain. She denies any help from the administration of the medication however her mobility is better and her activities of daily living are improved. I will continue next time with the same concentration of the medications including hydromorphone 800 micro g per mL or 8 milligrams/mL bupivacaine 40 milligrams/mL and baclofen 600 micro g per mL. She denies side effects from the medications. [facility] Medical History Osteopenia Asthma-COPD overlap syndrome Lumbar back pain with radiculopathy affecting right lower extremity Sacroiliac joint dysfunction of right side Sacroiliitis Disc degeneration, lumbar HPV test positive Chronic pain syndrome Acute blood loss anemia Hypertension Osteoarthritis of right knee MENDENHALL (dyspnea on exertion) Presence of dental bridge Sleep apnea Diabetes Overflow stress urinary incontinence in female Urge incontinence Primary osteoarthritis of hands, bilateral Loose right total knee arthroplasty Hx of carpal tunnel syndrome Pulmonary nodules GERD (gastroesophageal reflux disease) Surgical History Hx of tubal ligation H/O knee surgery History of orthopedic surgery History of arthroplasty of right knee History of pubovaginal sling Hx of colonoscopy History of carpal tunnel release of both wrists History of esophagogastroduodenoscopy (EGD) Previous back surgery History of endometrial ablation Hx of section Family History Mother Diabetes Arthritis Brother Cancer Paternal Aunt Breast cancer Social History Household Members: None Housing: Apartment Are you a primary respiratory care instructor to a significant other at home: No Do you presently have visiting nurse or other home services: No Alcohol intake: former Year quit: 2018 Patient Tobacco Use Status: Current everyday Tobacco user Tobacco use type: Cigarette Cigarettes Per Day: 5 Years Smoked: 2014 Second Hand Smoke Exposure: No Substance Use Type: Crack/Cocaine and Marijuana service: No Current occupational status: disabled Current occupation: rt handed Female Reproductive History Menstrual Age of Menarche: 11 Review of Systems Const All systems reviewed & are unremarkable except as noted in HPI and below ENT Reports Normal hearing present Neuro Reports Normal hearing present and Denies Abnormal speech present Physical Exam Vital Signs: Last Vital Signs Pulse 64 07/30/25 14:13 Resp 16 07/30/25 14:13 BP 150/63 H 07/30/25 14:13 Pulse Ox 95 07/30/25 14:13 Oxygen Delivery Method Room Air 07/30/25 14:13 BMI result Body Mass Index 31.3 Const General: no acute distress Nutritional Appearance: obese Orientation/consciousness: patient oriented x3 Limitations: language barrier HEENT Head: Yes atraumatic Mouth: no other ( thrush) Throat: No postnasal drainage Eyes General: appearance normal, both eyes and all related structures Sclerae: sclerae normal EOM: EOMs intact bilaterally Neck Neck: Yes normal visual inspection Lymphatic: no lymphadenopathy noted Chest Chest palpation & inspection: normal inspection of the chest Resp Effort & Inspection: normal respiratory effort, able to speak in complete sentences, normal respiratory pattern, no audible wheezes and no cough Auscultation: clear to auscultation bilaterally Cardio Jugular venous distension: no JVD GI Inspection: Yes normal to inspection and Yes distended Auscultation: normal bowel sounds Skin General skin exam: no rashes or lesions noted Neuro General: patient oriented x3, gait normal and moves all extremities Cranial nerves: Yes Normal hearing present Speech: No Abnormal speech present Extrem General: Yes normal to inspection Psych Appearance: grossly normal Mental Status: mental status grossly normal Assessment & Plan Assessment & Plan (1) Vertebrogenic low back pain: Code(s): M54.51 - Vertebrogenic low back pain Category: Medical Plan: (2) Lumbar back pain with radiculopathy affecting right lower extremity: Code(s): M54.16 - Radiculopathy, lumbar region Category: Medical (3) Sacroiliac joint dysfunction of right side: Code(s): M53.3 - Sacrococcygeal disorders, not elsewhere classified Category: Medical (4) Sacroiliitis: Code(s): M46.1 - Sacroiliitis, not elsewhere classified Category: Medical (5) Disc degeneration, lumbar: Code(s): M51.36 - Other intervertebral disc degeneration, lumbar region Category: Medical (6) Spondylosis of lumbar spine: Code(s): M47.816 - Spondylosis without myelopathy or radiculopathy, lumbar region Category: Medical (7) Chronic pain syndrome: Code(s): G89.4 - Chronic pain syndrome Category: Medical Plan: Intrathecal pump adjustment. The pain pump was interrogated and the amount of medication in the pump is 12.8 mL. The continuous dose of the medication was left the same 384.7 micro g of hydromorphone a day 1.9-3 mg of bupivacaine a day and 28.85 micro g of baclofen a day. The PTM dose was increased from hydromorphone 199.9 micro g a day to 249.7 micro g a day with corresponding 1.248 mg of bupivacaine and 18.72 micro g of baclofen. She will be able to administer herself this medication 5 times a day with 1 bolus receiving every 3 hours. (8) Generalized osteoarthritis: Code(s): M15.9 - Polyosteoarthritis, unspecified Category: Medical (9) Edema of both lower extremities: Code(s): R60.0 - Localized edema Category: Medical (10) Abdominal pain: Code(s): R10.9 - Unspecified abdominal pain Category: Medical Plan She is not planning to move to [place] anymore we need to refill her pump in 58 days in this office. Coding Level of Care Code Est Pt Level 3 (71546) Procedure Only Diagnoses Vertebrogenic low back pain M54.51 Lumbar back pain with radiculopathy affecting right lower extremity M54.16 Sacroiliac joint dysfunction of right side M53.3 Sacroiliitis M46.1 Disc degeneration, lumbar M51.36 Spondylosis of lumbar spine M47.816 Chronic pain syndrome G89.4 Generalized osteoarthritis M15.9 Edema of both lower extremities R60.0 Abdominal pain R10.9
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
== END 2025-07-30 14:30 | disposition home or self-care (01) ==
LOC: HO.PMC 14:07
PROVIDERS: PCP Internal Medicine; Visit Provider Anesthesiology
DX: M54.51 Vertebrogenic low back pain (principal); M54.16 Radiculopathy, lumbar region; M53.3 Sacrococcygeal disorders, not elsewhere classified; M46.1 Sacroiliitis, not elsewhere classified; M51.369 Other intervertebral disc degeneration, lumbar region without mention of lumbar back pain or lower extremity pain; M47.816 Spondylosis without myelopathy or radiculopathy, lumbar region; G89.4 Chronic pain syndrome; M15.9 Polyosteoarthritis, unspecified; R60.0 Localized edema; R10.9 Unspecified abdominal pain; Z45.1 Encounter for adjustment and management of infusion pump
CPT/HCPCS: 62367; 99213

== ENCOUNTER → 2025-07-30 14:06 | Outpatient (BNVA) | payer OTHER, SELFPAY | PROVIDERS: PCP Internal Medicine; Visit Provider Anesthesiology | DX: Z45.1 Encounter for adjustment and management of infusion pump (principal); G89.4 Chronic pain syndrome; M54.16 Radiculopathy, lumbar region; M53.3 Sacrococcygeal disorders, not elsewhere classified; M46.1 Sacroiliitis, not elsewhere classified; M51.360 Other intervertebral disc degeneration, lumbar region with discogenic back pain only; M15.9 Polyosteoarthritis, unspecified; R60.0 Localized edema; R10.9 Unspecified abdominal pain | CPT/HCPCS: 62367; 99212 ==

== ENCOUNTER 2025-08-06 09:01 | Outpatient (AMB) | payer OTHER, SELFPAY ==
[2025-08-06 09:03] VITALS: BP 126/49; PULSE 61; BMI 31.4
--- NOTE | 2025-08-06 09:03 | A.OFFVIS_ITS ---
Vital Signs 08/06/25 09:03 Height 5 ft 2 in Weight 171 lb 15.369 oz BMI 31.4 BP 126/49 L Blood Pressure Location Lt brachial Position Sitting Pulse 61 Intake Visit Reasons: follow up Intake Note: Isabel presents in the office as a follow up. CC: Constipation - she states for 2 weeks almost. Pains in the stomach and states that medications are not working. She state that sometimes when she has a BM she has blood. Lots of pains and reflux. Warp Trucker Required: Yes Allergies Seasonal Allergies Allergy (Mild, Verified 11/16/25 09:46) Unknown Medication List - Last Reconciled 08/06/25 by Sherri Britton MD acetaminophen ER 650 mg PO DAILY albuterol sulfate 90 mcg/actuation (Ventolin HFA) 2 puffs PO Q4H PRN arformoterol (Brovana) 2 mL inhalation BID 30 days ascorbic acid (vitamin C) 250 mg PO DAILY atenolol 25 mg PO QPM budesonide 0.5 mg (2 mL) inhalation BID 30 days buspirone 15 mg PO BID calcium polycarbophil (Fiber-Lax) mg PO cetirizine 10 mg PO DAILY chlorthalidone 50 mg PO DAILY cholecalciferol (vitamin D3) 50 mcg PO DAILY clonazepam 0.5 mg PO DAILY dicyclomine 10 mg PO TID 30 days docusate sodium 100 mg PO BID doxepin 50 mg PO BEDTIME escitalopram oxalate 10 mg PO DAILY ferrous gluconate 240 mg PO Q OTHER DAY fluticasone propionate 50 mcg/actuation 1 spray intranasal BID hydrocortisone 2.5% 1 appl NC BID-QID PRN 30 days ipratropium-albuterol 0.5 mg-3 mg(2.5 mg base)/3 mL 3 mL inhalation Q4-6H PRN 30 days ketoconazole 2% topical 2XW losartan 50 mg PO DAILY lubiprostone (Amitiza) 16 mcg (2 x 8 mcg) PO BID 30 days metformin 500 mg PO BID mupirocin 2% 1 appl topical TID naloxone 4 mg/actuation 4 mg intranasal Q2M PRN 1 day omeprazole 40 mg PO polyethylene glycol 3350 (HealthyLax) 17 grams PO DAILY pregabalin 150 mg PO BID 30 days simvastatin 40 mg PO BEDTIME zolpidem 5 mg PO BEDTIME PRN HPI HPI follow up: Details: GI CLINIC VISIT FOR THIS 65-YEAR-OLD SRI LANKAN-SPEAKING FEMALE FOR FU OF ABD PAIN: ? 1. Epigastric pain - R10.13 (Primary) ? 2. Gastroesophageal reflux disease without esophagitis - K21.9 ? 3. Abdominal bloating - R14.0 ? 4. Colon cancer screening - Z12.11 ? ??TODAY'S VISIT ?Video Chemical Dependency Attendant, Sofia # [id number]. FU of Constipation - she states for 2 weeks almost. Pains in the stomach and states that medications are not working. She state that sometimes when she has a BM she has blood. Lots of pains and reflux. Diffuse abdominal pain with bloating. When she goes to the bathroom and starts pushing and messaging her belly, has sweating. Woke up with a lot of pain at night at 1 am and felt the room was spinning and fell and unable to get up. Had an bowel accident while on the floor PAST VISIT: Patient reports centeral abdominal pain with bloating, chronic constipation with black stool, bleeding hemorrhoids and acid reflux CTE results were reviewed with the pt. Denies use of aspirin or NSAIDS. Complains of early satiety - feels like she ate a whole cow after eating a small amount of food (Of note GES was normal) Does not eat till late afternoon. Feels bloated after she starts eating and stomach feels really hard. Continues to have constipation - last BM was on 01/27 (went 3 times) BM can be painful - she pushes without any results. Last Sunday (January 26) she woke up with pain and gurgling sound at 1 am. Had very dark stool which were very loose and watery. Fell on the ground and was able to get up after a while. Complains of abdominal pain x 3 months. Complains of diarrhea alternating with constipation. Prescribed a fibre supplement which is not helping Tried Mylanta which helped a little bit. Complains of 10/10 cramping upper abdominal pain and radiates laterally to the back Pain is constant and gets worse with eating. Complains of early satiety and trouble breathing after she eats. Some days she has diarrhea (3 times a week) and some days she is constipated. Stool can be intermittently dark/black Denies blood in the stools or wt loss Pt uses an implanted pump for back pain - connects to the pump every 3 hours ( Hydromorphone 0.75 mg/ml and Bupivacaine 7 mg/ml dose of her PTM medication from 167 micro g of hydromorphone at a time with corresponding dose of bupivacaine to 189.9 micro g per application with c orresponding dose of bupivacaine which she can use every 3 hours 5 times a day. After that constipation episode she started having diarrhea she states for a week. The pain never goes away Taking Omeprazole twice a day Loss of appetite and barely eat. Eats a little bit and feels very full Has diarrhea which does not stop and is dark in color. Can have 5 Bms a day Went 3 times last night Had an episode of fecal incontinence. Stools are slimy and she felt scared. EGD and Colon results reviewed Continues to have constipation Feels a ball comes out and her hemorrhoids came out. Today she reports she has to strain when she is having a BM and she feels like a ball coming out of her rectum. Seen by PCP and prescribed a suppositories Can have intermittent diarrhea sometimes with urgency and bowel accidents Complains of intermittent regurgitation and heartburn Has been having a lot of diarrhea x 6 weeks and has to use pampers. Notes lower abdominal cramps followed by diarrhea BMs can be watery and sometimes very dark - can have upto 3 BMs a day. Has stopped taking laxatives and medications for constipation Travelled to [place] for 3 weeks. - had diarrhea before she went to [place]. Fell x 2 while in [place] Pt denies fever or chills and complains of sweating. Appetite has been poor. Denies recent antibiotic use Continues to have acid reflux. Notes lower extremity edema for the past 2 weeks Has been having diffuse abdominal pain x 2 weeks. Feels bloated and distended. Pain is 9/10 and is burning. Unable to eat - able to eat small amounts of food Has 2 BMs a day and sometimes urgency. Notes some decrease in pain after she has a BM. Notes sour bile which comes up. Sometimes she has a lot of pain and is unable to have a BM. Has never used an enema. Denies fever chills or sweating Has been chewing some white pills which did not help Also notes diarrhea - Has been having a lot of lower abdominal pain and pain in her lower back. Passed a soft stool - it was painful Gipsy bloated and gassy and denies nausea or vomiting. Drinks coffee in the morning and has a BM daily. Took a chewable pill and it helped with pain. Continues to have abdominal pain and constipation. Has a lot of pain when she goes to the bathroom. Stomach gets big and swollen Unable to eat since it hurts too much. Takes 2 chewable tablets when she had the pain. Unable to eat until the following day. Has pain 2 times a week and lasts 45 min to an hour. I have been having abdominal pain. Feels completely full after eating a few bites and unable to eat more Feels bloated. Taking a medication twice a day for pain which helps after a while. Gets a lot of constipation and has to push and has hard stools. Has a BM every 2 weeks. I had a lot of abd pain and I have been constipated. Had to sit on the toilet for an hour last night and was unable to have a BM. Took simethicone and had diarrhea. Abd pain improved after she had a BM Has chronic anemia and denies having periods for the past 10 yrs. Pt states When I eat I get pain in my stomach, I feel like my intestines are twisting inside. It feels like my stomach is very full when I eat. The other day I did have an accident, I couldn't make it in time. Usually I don't have diarrhea that was just one time. But mostly I just get the constipation and the pain in my stomach, my belly gets really big. It feels like my stomach is swelling. I have to constantly take the tums but I think I need a stronger medication for that. She is recuperating from her knee replacement surgery. It hurts a lot.? Has to eat very little when she eats. Denies nausea or vomiting. Stomach is bloated, painful and I have a hard time going to the bathroom. Feels like intestines are twisted up. ? GES results were reviewed with the patient. ? If I dont keep taking my medications I will be in pain ? Does fine if she takes her medications. Can have intermittent bloating. ? Denies constipation and has a BM every other day. ? Feeling good - just some pain due to arthritis. ? Sometimes I get some pain in the stomach and unable to eat. ? If I dont take the medication, I get a lot of pain. ? She feels she gets full very fast. ? Has nausea and denies vomiting. ? Sometimes no BM x 3 days - not taking any medication for constipation. ? Has acid reflux at night and takes TUMS with some relief. ? Notes post prandial abdominal pain. ? Has a BM 3-4 times a day and no BM on some days. ? Not taking the Senna since she does not feel constipation. ? Denies any change in her abd pain with BM and passage of gas. ? Not taking any medication for constipation at present. ? Denies past problems with anesthesia ? IMAGING STUDIES: Oct, [address] SCAN SHOWED: 1. No acute intra-abdominal process seen. 2. Moderate constipation. No obstruction seen. 3. There is a band of soft tissue thickening posterior to the cecum. Itis stable to 2019 exam The appendix is not seen. Question appendix. Correlate with clinical exam. 08/06/20 GASTRIC EMPTYING STUDY SHOWED:? ? ? Retention in the stomach at each time interval was: ? ? ? 1 hour 63% (normal 37%-90%) ? ? ? 2 hours 8% (normal 30%-60%) ? ? ? 3 hours 4% ? ? ? 4 hours (Not Obtained) (normal 0%-10%) IMPRESSION: Normal solid food gastric emptying study. ?08/04/[address] scan showed: ? GASTROINTESTINAL TRACT: There is a duodenal diverticulum adjacent to the pancreas that measures 2 x 2.7 cm. ? Small and large bowel is otherwise unremarkable. ? The stomach is unremarkable. The appendix is not identified. The small and large bowel are unremarkable. ? The appendix is unremarkable. ? ABDOMINAL WALL: No significant hernia is appreciated. ? LYMPH NODES: There are small, small bowel mesentery lymph nodes. No enlarged lymph nodes are seen. ? OSSEOUS STRUCTURES: There are degenerative changes of the spine. ? IMPRESSION: Duodenal diverticulum, otherwise unremarkable exam. ?ENDOSCOPIC PROCEDURES: 10/21/19 COLONOSCOPY SHOWED: ? Ascending Colon A 1.5 to 2 cms flat polyp in the distal AC raised with 2 cc ? of Orise solution and removed with a hot snare ? Transverse Colon - Normal ? Descending Colon Moderate diverticulosis ? Sigmoid Colon Moderate diverticulosis ? Ano-rectum - Moderate internal hemorrhoids ? Colon preparation: Fair despite copious irrigation ? Impression and Post Procedure Diagnosis: ? Colonoscopy Findings: ? One 1.5 to 2 cms hyperplastic polyp removed ? Moderate diverticulosis seen in the left colon ? Moderate hemorrhoids on retroflexed exam. ? Plan: ? Repeat Colonoscopy interval based on path results in 1-2 years due to fair prep. ? Above findings were reviewed with the patient and colon polyps and ? diverticulosis handouts were given in the discharge area ? LETTER SENT ADVISING REPEAT COLONOSCOPY IN 5 YRS - will ask patient to have a stool FIT test checked in the interim due to fair prep. 09/2019 EGD SHOWED: Mild gastritis and gastric biopsies showed mild chronic inactive gastritis and features of reactive gastropathy. No H pylori was detected.Duodenal biopsies were normal [facility] Medical History Osteopenia Asthma-COPD overlap syndrome Lumbar back pain with radiculopathy affecting right lower extremity Sacroiliac joint dysfunction of right side Sacroiliitis Disc degeneration, lumbar HPV test positive Chronic pain syndrome Acute blood loss anemia Hypertension Osteoarthritis of right knee [place] (dyspnea on exertion) Presence of dental bridge Sleep apnea Diabetes Overflow stress urinary incontinence in female Urge incontinence Primary osteoarthritis of hands, bilateral Loose right total knee arthroplasty Hx of carpal tunnel syndrome Pulmonary nodules GERD (gastroesophageal reflux disease) Surgical History Hx of tubal ligation H/O knee surgery History of orthopedic surgery History of arthroplasty of right knee History of pubovaginal sling Hx of colonoscopy History of carpal tunnel release of both wrists History of esophagogastroduodenoscopy (EGD) Previous back surgery History of endometrial ablation Hx of section Family History Mother Diabetes Arthritis Brother Cancer Paternal Aunt Breast cancer Social History Household Members: None Housing: Apartment Are you a primary customer care consultant to a significant other at home: No Do you presently have visiting nurse or other home services: No Alcohol intake: former Year quit: 2018 Patient Tobacco Use Status: Current everyday Tobacco user Tobacco use type: Cigarette Cigarettes Per Day: 5 Years Smoked: 2014 Second Hand Smoke Exposure: No Substance Use Type: Crack/Cocaine and Marijuana service: No Current occupational status: disabled Current occupation: rt handed Female Reproductive History Menstrual Age of Menarche: 11 Review of Systems Const All systems reviewed & are unremarkable except as noted in HPI and below Physical Exam Vital Signs: Last Vital Signs Pulse 61 08/06/25 09:03 BP 126/49 L 08/06/25 09:03 BMI result Body Mass Index 31.4 Const General: healthy appearing and no acute distress Nutritional Appearance: average body habitus Orientation/consciousness: patient oriented x3 Limitations: no limitations HEENT Head: Yes normal to inspection Ears: hearing grossly normal bilaterally Mouth: Normal oral and palatal mucosa present Eyes Sclerae: sclerae normal Pupils: Equal, round and reactive pupils present Neck Neck: Yes normal visual inspection Chest Chest palpation & inspection: normal inspection of the chest Resp Effort & Inspection: normal respiratory effort Auscultation: clear to auscultation bilaterally Cardio Palpation: normal PMI Rate: regular rate Rhythm: regular rhythm Heart sounds: S1 normal heart sound present, S2 normal heart sound present and no murmurs GI Palpation (GI): Soft to palpation, nontender and No hepatosplenomegaly present Auscultation: normal bowel sounds Rectal Exam - Female: deferred Skin General skin exam: no rashes or lesions noted Neuro General: patient oriented x3, gait normal and moves all extremities Cranial nerves: Yes Equal, round and reactive pupils present Psych Appearance: grossly normal Mental Status: mental status grossly normal Assessment & Plan Assessment & Plan (1) GERD (gastroesophageal reflux disease): Code(s): K21.9 - Gastro-esophageal reflux disease without esophagitis Category: Medical (2) Colon cancer screening: Comment: 10/11/19 Colonoscopy showed One 1.5 to 2 cms hyperplastic polyp removed, Moderate diverticulosis seen in the left colon and moderate hemorrhoids on retroflexed exam. advised repeat colon in 5 yrs - 02/2020 A stool FIT test was checked due to fair prep and was negative. 03/2023 colonoscopy showed diverticulosis and hemorrhoids and no polyps were detected. Random biopsies obtained from the colon were normal. FU colon was advised in 10 years. Code(s): Z12.11 - Encounter for screening for malignant neoplasm of colon Category: Medical (3) Chronic constipation: Code(s): K59.09 - Other constipation Category: Medical (4) Chronic diarrhea: Code(s): K52.9 - Noninfective gastroenteritis and colitis, unspecified Category: Medical (5) Elevated fecal calprotectin: Code(s): R19.5 - Other fecal abnormalities Category: Medical (6) Abdominal bloating: Code(s): R14.0 - Abdominal distension (gaseous) Category: Medical (7) Duodenal diverticulum: Code(s): K57.10 - Diverticulosis of small intestine without perforation or abscess without bleeding Category: Medical Plan 65-year-old [place]zeri-speaking female with hypertension, depression, chronic obstructive pulmonary disease (COPD), erosive osteoarthritis of hands, mild lumbar spondylosis, b/l carpal tunnel syndrome, Bilateral knee OA, Asthma, Constipation, Dyspepsia, microscopic hematuria followed in GI for GERD, abdominal pain with bloating and colon cancer screening - Abdominal pain and bloating is likely related to chronic constipation or related to duodenal diverticulum. No pancreatic or biliary source found on recent CT scan. Patient complains of early satiety and a gastric emptying study was normal. Patient was prescribed Linzess for constipation during her last visit and denies getting this medication from the pharmacy. Linzess was prescribed again and I requested Phoebe, GI RN, to check with the pharmacy to confirm it is available for the patient Pt denies improvement in constipation with Linzess - pt was switched to Lubiprostone 16 mcg twice daily for constipation. Oct [address] scan was performed and results as noted above. 03/30/23 EGD (evaluation of abd pain and FU of duodenal diverticulum) and Colon (abd pain, diarrhea, anemia and fair prep on past colon) performed results as noted above 06/15/23 patient was prescribed MiraLax, senna and Amitiza for constipation 09/27/23 Pt advised to have stools studies for further evaluation of diarrhea 12/25/24 Pt complains of abdominal pain, bloating and constipation with intermittent diarrhea Pt advised to have labs and KUB today She will be scheduled for a CT enterography (elevated fecal calprotectin level in the past) 01/19/25 CT enterography showed: Mild mural thickening of second and third duodenum and proximal jejunal. Likely inflammatory or infectious etiology. Rest of the small bowel loops is unremarkable. Mild constipation. Appendix is not seen. 01/30/25 CTE results were reviewed with the pt. Denies use of aspirin or NSAIDS. Complains of early satiety - feels like she ate a whole cow after eating a small amount of food (Of note GES was normal) Does not eat till late afternoon. Feels bloated after she starts eating and stomach feels really hard. Continues to have constipation - last BM was on 01/27 (went 3 times) BM can be painful - she pushes without any results. Pt advised to schedule an EGD with small bowel enteroscopy (FU of abnormal duodenum and proximal jejunum on CTE) Of note pt had a colonoscopy in 03/2023 which showed diverticulosis and hemorrhoids and no polyps were detected. Random biopsies obtained from the colon were normal. FU colon was advised in 10 years. Check stool occult blood and IBD serologies. [place] of dicyclomine for abdominal pain. 08/06/25 Pains in the stomach and states that medications are not working. She state that sometimes when she has a BM she has blood. Lots of pains and reflux. Diffuse abdominal pain with bloating. Pt advised a KUB abd and to Take Dulcolax 2 tab daily x 5 days and take fleet enema prn for constipation FU in 8 weeks Orders: Orders XR KUB 08/06/25 K59.09 - Other constipation Medications: New bisacodyl (Fleet Bisacodyl) 10 mg (30 mL) NC DAILY PRN 888 mL 1RF constipation 30 days K59.09 - Other constipation bisacodyl (Dulcolax (bisacodyl)) Take 2 tablets at 12 pm the day before colonoscopy 10 mg (2 x 5 mg) PO ONCE 10 tabs 0RF 5 days K59.09 - Other constipation Coding Level of Care Code Est Pt Level 4 (47772) Diagnoses GERD (gastroesophageal reflux disease) K21.9 Colon cancer screening Z12.11 Chronic constipation K59.09 Chronic diarrhea K52.9 Elevated fecal calprotectin R19.5 Abdominal bloating R14.0 Duodenal diverticulum K57.10 Time Spent (min) 21
--- OUTSIDE RECORDS SUMMARY | 2025-08-06 10:01 | XMS_ITS | Clinical Summary ---
Author Organization [facility] [place] Address [address] [place] [address] Phone Care Team Providers Care Chopped Strand Operator Name Role Phone Ramon Oropeza NP Primary Care Provider [phone] Allergies No known active allergies Medications albuterol [...] Type Department Care Team Description 06/04/2025 Telephone [facility] Hematology Oncology [address] [place] [address] Ilda Owusu MA 05/22/2025 8:54 PM EDT - 05/24/2025 2:06 PM EDT Hospital Encounter [facility] [address] [place] [address] Brandin López MD Ghauri, Baber, MD Hardee, Jamaal A, MD Near syncope (Primary Dx); Fall, initial encounter; JAIME (acute kidney injury) ([facility] V24) Discharge Disposition: Home or Self Care [...] of7 resultswithin the time period is included. [facility] Glucose POCT 114(H) 70 - 110 mg/dL 05/24/2025 11:28 AM EDT [facility] Blood Capillary blood specimen / Unknown 05/24/2025 11:27 AM EDT 05/24/2025 11:29 AM EDT Rolando Farmer MD LAB POINT OF CARE TE ST DOCKED DEVICE UNSOLICITED RESULTS Final Result [facility] [address] [place] [address], * (ABNORMAL) TRANSTHORACIC ECHOCARDIOGRAM (TTE) COMPLETE (05/24/2025 [...] 86 mL CV PACS Left Atrium Minor [place] 5.5 cm CV PACS Left Atrium Major [place] 6.4 cm CV PACS LA Area Sys (A2C) 20 cm2 CV PACS LA Area Sys (A4C) 26 cm2 CV PACS LA Volume (BP) 73 mL CV PACS RA Area 16.7 cm2 CV PACS RA 2D Volume 42 mL CV PACS RA Major [place] 5.7 cm CV PACS RA Major [place] 5.7 cm CV PACS RA Minor [place] 3.6 cm CV PACS RA Minor [place] 3.6 cm CV PACS Aortic Valve Cusp [...] Valsalva 3.0 cm CV PACS MV Deceleration Robertson 5.1 m/s2 CV PACS E Wave Deceleration [...] is included. WBC 8.4 3.8 - 11.0 K/[facility] LAB HEMETOLOGY METHOD 05/24/2025 9:15 AM EDT [facility] RBC 3.58(L) 3.90 - 5.20 M/[facility] LAB HEMETOLOGY METHOD 05/24/2025 9:15 AM EDT [facility] Hemoglobin 11.1(L) 12.0 - 16.0 g/dL LAB HEMETOLOGY METHOD 05/24/2025 9:15 AM EDT [facility] Hematocrit 34.0(L) 35.0 - 48.0 % LAB HEMETOLOGY METHOD 05/24/2025 9:15 AM EDT [facility] MCV 95.0 80.0 - 100.0 FL LAB HEMETOLOGY METHOD 05/24[facility]25 [facility] MCH 31.0 27.0 - 34.0 pcg LAB HEMETOLOGY METHOD 05/24/2025 9:15 AM EDT [facility] MCHC 32.7 31.0 - 37.0 g/dL LAB HEMETOLOGY METHOD 05/24/2025 9:[facility] RDW 14.0 11.5 - 14.5 % LAB HEMETOLOGY METHOD 05/24/2025 9:[facility] Platelets 257 150 - 400 K/mcL LAB HEMETOLOGY METHOD 05/24/2025 9:[facility] MPV 9.3 FL LAB HEMETOLOGY METHOD 05/24/2025 9:[facility] Neutrophils Relative 66.1 42.0 - 75.0 % LAB HEMETOLOGY METHOD 05/24/2025 9:[facility] Lymphocytes Relative 22.4 15.0 - 50.0 % LAB HEMETOLOGY METHOD 05/24/2025 9:[facility] Monocytes Relative 8.8 0.0 - 13.0 % LAB HEMETOLOGY METHOD 05/24/2025 9:[facility] Eosinophils Relative 1.7 0.0 - 7.0 % LAB HEMETOLOGY METHOD 05/24/2025 9:15 [facility] Basophils Relative 1.0 0.0 - 2.0 % LAB HEMETOLOGY METHOD 05/24/2025 9:15 AM EDT [facility] Neutrophils Absolute 5.60(H) 1.50 - 5.10 K/mcL LAB HEMETOLOGY METHOD 05/24/2025 9:15 AM EDT [facility] Lymphocytes Absolute 1.90 0.90 - 4.00 K/mcL LAB HEMETOLOGY METHOD 05/24/2025 9:15 AM EDT [facility] Monocytes Absolute 0.70 0.20 - 1.00 K/mcL LAB HEMETOLOGY METHOD 05/24/2025 9:15 AM EDT [facility] Eosinophils Absolute 0.10 0.00 - 0.61 K/mcL LAB HEMETOLOGY METHOD 05/24/2025 9:15 AM EDT [facility] Basophils Absolute 0.10 0.00 - 0.21 K/mcL LAB HEMETOLOGY METHOD 05/24/2025 9:15 AM EDT [facility] NRBC 0.1 % LAB HEMETOLOGY METHOD 05/24/2025 9:15 AM EDT [facility] NRBC Absolute 0.01(H) 0.00 - 0.00 K/mcL LAB HEMETOLOGY METHOD 05/24/2025 9:15 AM EDT [facility] Immature Granulocytes Relative 05/24/2025 9:15 AM EDT [facility] Immature Granulocytes Absolute 05/24/2025 9:15 AM EDT [facility] Blood Venous blood specimen / Unknown Venipuncture / Unknown 05/24/2025 7:53 AM EDT 05/24/2025 9:07 AM EDT us Brandin López MD LAB BLOOD ORDERABLES Final R esult [facility] [address] [place] [address], * Phosphorus (05/24/2025 7:53 AM EDT) Phosphorus 4.9 2.4 - 5.1 mg/dL LAB CHEMISTRY METHOD 05/24/2025 9:42 AM EDT [facility] Blood Venous blood specimen / Unknown Venipuncture / Unknown 05/24/2025 7:53 AM EDT 05/24/2025 9:04 AM EDT Brandin López MD LAB BLOOD ORDERABLES Final R esult [facility] [address] [place] [address], [place] [phone] * Magnesium (05/24/2025 7:53 AM EDT) [facility] Magnesium 1.6 1.6 - 2.6 mg/dL LAB CHEMISTRY METHOD 05/24/2025 9:42 AM EDT [facility] Blood Venous blood specimen / Unknown Venipuncture / Unknown 05/24/2025 7:53 AM EDT 05/24/2025 9:04 AM EDT Brandin López MD LAB BLOOD ORDERABLES Final R esult [facility] [address] [place] [address], [place] [phone] * (ABNORMAL) Comprehensive metabolic panel (05/24/2025 7:53 AM EDT) Only the most recent of2 resultswithin the time period is included. Sodium 143 136 - 145 mmol/L LAB CHEMISTRY METHOD 05/24/2025 9:42 AM EDT [facility] Potassium 3.9 3.5 - 5.1 mmol/L LAB CHEMISTRY METHOD 05/24/2025 9:42 AM EDT [facility] Chloride 107 98 - 107 mmol/L LAB CHEMISTRY METHOD 05/24/2025 9:42 AM [facility] CO2 26 20 - 31 mmol/L LAB CHEMISTRY METHOD 05/24/2025 9:42 AM [facility] Anion Gap 10 10 - 17 LAB CHEMISTRY METHOD 05/24/2025 9:42 AM [facility] Glucose 100 74 - 106 mg/dL LAB CHEMISTRY METHOD 05/24/2025 9:42 AM [facility] BUN 22 9 - 23 mg/dL LAB CHEMISTRY METHOD 05/24/2025 9:42 AM [facility] Creatinine 1.62(H) 0.55 - 1.02 mg/dL LAB CHEMISTRY METHOD 05/24/2025 9:42 AM [facility] eGFR 35(L) >=60 mL/min/1 .73m2 LAB CHEMISTRY METHOD 05/24/2025 9:42 AM [facility] Comment:Calculation based on the Chronic Kidney Disease Epidemiology Collaboration (CKD-EPI) equation refit without adjustment for race. BUN/Creatinine Ratio 13.6 12.0 - 20.0 LAB CHEMISTRY METHOD 05/24/2025 9:42 AM [facility] Calcium 8.9 8.3 - 10.6 mg/dL LAB CHEMISTRY METHOD 05/24/2025 9:42 AM [facility] AST (SGOT) 18 0 - 34 unit/L LAB CHEMISTRY METHOD 05/24/2025 9:42 AM [facility] ALT (SGPT) 16 10 - 49 unit/L LAB CHEMISTRY METHOD 05/24/2025 9:42 AM [facility] Alkaline Phosphatase 59 46 - 116 unit/L LAB CHEMISTRY METHOD 05/24/2025 9:42 AM [facility] Total Protein 6.0 5.7 - 8.2 g/dL LAB CHEMISTRY METHOD 05/24/2025 9:42 AM EDT [facility] Albumin 3.0(L) 3.4 - 5.0 g/dL LAB CHEMISTRY METHOD 05/24/2025 9:42 AM EDT [facility] Total Bilirubin 0.3 0.3 - 1.2 mg/dL LAB CHEMISTRY METHOD 05/24/2025 9:42 AM EDT [facility] Blood Venous blood specimen / Unknown Venipuncture / Unknown 05/24/2025 7:53 AM EDT 05/24/2025 9:04 AM EDT us Brandin López MD LAB BLOOD ORDERABLES Final R esult [facility] [address] [place] [address], * Troponin I high sensitivity (05/23/2025 12:27 PM EDT) Only the most recent of3 resultswithin the time period is included. High Sensitivity Troponin I <10 <=34 ng/L LAB CHEMISTRY METHOD 05/23/2025 1:34 PM EDT [facility] Blood Venous blood specimen / Unknown Venipuncture / Unknown 05/23/2025 12:27 PM EDT 05/23/2025 1:02 PM EDT Narrative [facility] - 05/23/2025 1:34 PM EDT REFERENCE RANGE: The collections officer 99th percentile upper reference limit(URL)is considered the cut-off normal value for high sensitivity Troponin as defined by the Fourth [place] Definition of [place]. MYOCARDIAL INJURY: Elevated Cardiac Troponin values with [...] imaging changes as defined by the Fourth [place] Definition of [place]. High Sensitivity Troponin I testing performed on our [employer] chemistry platform is affected by high doses of Biotin. The test may have falsely decreased results. Check with the patient's clinical history for testing interference. Rolando Farmer MD LAB BLOOD ORDERABLES Final Re sult Performing Organization Address [facility]/ZIP Co de Phone Number [facility] [address] [place] [address], * ECG 12 lead (05/23/2025 12:05 PM EDT) Only the most recent of5 resultswithin the time period is included. Ventricular Rate ECG 59 BPM GEMUSE Atrial Rate 59 BPM GEMUSE P-R Interval 144 ms GEMUSE QRS Duration 90 ms GEMUSE Q-T Interval 452 ms GEMUSE QTc 447 ms GEMUSE P Wave [place] 64 degrees GEMUSE T [place] 21 degrees GEMUSE ECG Interpretation Sinus bradycardia Minimal voltage criteria for LVH, may be normal variant ( R in aVL ) Confirmed by Baron Childress ([id number]) on 05/28/2025 9:22:52 AM GEMUSE 05/23/2025 12:0 5 PM EDT 05/28/2025 9:22 AM EDT Rolando Farmer MD ECG ORDERABLES Final Result Performing Organization Address [facility] Co de Phone Number GEMUSE * (ABNORMAL) Basic metabolic panel (05/23/2025 11:44 AM EDT) Pathologist [facility] Sodium 144 136 - 145 mmol/L LAB CHEMISTRY METHOD 05/23/2025 12:34 PM EDT [facility] Potassium 4.3 3.5 - 5.1 mmol/L LAB CHEMISTRY METHOD 05/23/2025 12:34 PM EDT [facility] Chloride 107 98 - 107 mmol/L LAB CHEMISTRY METHOD 05/23/2025 12:34 PM EDT [facility] CO2 31 20 - 31 mmol/L LAB CHEMISTRY METHOD 05/23/2025 12:34 PM EDT [facility] Anion Gap 6(L) 10 - 17 LAB CHEMISTRY METHOD 05/23/2025 12:34 PM EDT [facility] Glucose 113(H) 74 - 106 mg/dL LAB CHEMISTRY METHOD 05/23/2025 12:34 PM EDT [facility] BUN 20 9 - 23 mg/dL LAB CHEMISTRY METHOD 05/23/2025 12:34 PM EDT [facility] Creatinine 1.53(H) 0.55 - 1.02 mg/dL LAB CHEMISTRY METHOD 05/23/2025 12:34 PM EDT [facility] eGFR 38(L) >=60 mL/min/1 .73m2 LAB CHEMISTRY METHOD 05/23/2025 12:34 PM T [facility] Comment:Calculation based on the Chronic Kidney Disease Epidemiology Collaboration (CKD-EPI) equation refit without adjustment for race. BUN/Creatinine Ratio 13.1 12.0 - 20.0 LAB CHEMISTRY METHOD 05/23/2025 12:34 PM T [facility] Calcium 9.1 8.3 - 10.6 mg/dL LAB CHEMISTRY METHOD 05/23/2025 12:34 PM T [facility] Blood Venous blood specimen / Unknown Venipuncture / Unknown 05/23/2025 11:44 AM EDT 05/23/2025 12:01 PM EDT us Loretta BARTON LAB BLOOD ORDERABLES Final Res ult [facility] [address] [place] [address], * XR Thoracic Spine 2 Views (05/23/2025 [...] Signed Date: 05/23/2025 07:23 ET Workstation ID: [id number] Transcribed By: Self Edit Transcribed Date: 05/23/2025 [...] Signed Date: 05/23/2025 07:23 ET Workstation ID: [id number] Transcribed By: Self Edit Transcribed Date: 05/23/2025 07:23 ET us Brandin López MD IMG XR PROCEDURES Final Resu lt * Vitamin B12 and folate (05/22/2025 9:17 PM EDT) Vitamin B-12 355 211 - 911 pcg/mL LAB CHEMISTRY METHOD 05/23/2025 4:30 AM EDT [facility] Folate 13.1 >=5.4 ng/ml LAB CHEMISTRY METHOD 05/23/2025 4:30 AM EDT [facility] Blood Venous blood specimen / Unknown Venipuncture / Unknown 05/22/2025 9:17 PM EDT 05/22/2025 9:22 PM EDT Albert Latif MD LAB BLOOD ORDERABLES Final Resul t Performing Organization Address [facility] Co de Phone Number [facility] [address] [place] [address], [place] [phone] * Activated partial thromboplastin time (05/22/2025 9:17 PM EDT) aPTT 24.6 24.0 - 33.0 sec LAB COAGULATION METHOD 05/22/2025 9:39 PM EDT [facility] Blood Venous blood specimen / Unknown Venipuncture / Unknown 05/22/2025 9:17 PM EDT 05/22/2025 9:21 PM EDT Narrative [facility] - 05/22/2025 9:39 PM EDT [...] ORDERABLES Final Resul t Performing Organization Address City/[facility]/ZIP Co de Phone Number [facility] [address] [place] [address], * Prothrombin time with INR (05/22/2025 9:17 PM EDT) Protime 12.5 11.5 - 14.7 sec LAB COAGULATION METHOD 05/22/2025 9:38 PM EDT [facility] INR 1.0 0.9 - 1.2 LAB COAGULATION METHOD 05/22/2025 9:38 PM EDT [facility] Blood Venous blood specimen / Unknown Venipuncture / Unknown 05/22/2025 9:17 PM EDT 05/22/2025 9:21 PM EDT us Geoffrey Cedeño MD LAB BLOOD ORDERABLES Final Resul t Performing Organization Address [facility] Co de Phone Number [facility] [address] [place] [address], * B-type natriuretic peptide (05/22/2025 9:17 PM EDT) BNP 41 <=100 pcg/mL LAB CHEMISTRY METHOD 05/22/2025 9:58 PM EDT [facility] Blood Venous blood specimen / Unknown Venipuncture / Unknown 05/22/2025 9:17 PM EDT 05/22/2025 9:31 PM EDT Narrative [facility] - 05/22/2025 9:58 PM EDT B-Type Natriuretic Peptide (BNP) testing performed on our [employer] chemistry platform is affected by high doses of Biotin. The test may have falsely decreased results. Check with the patient's clinical history for testing interference. us Geoffrey Cedeño MD LAB BLOOD ORDERABLES Final Resul t Performing Organization Address [facility]/ZIP Co de Phone Number [facility] [address] [place] [address], * Lipase (05/22/2025 9:17 PM EDT) Lipase 26 13 - 75 unit/L LAB CHEMISTRY METHOD 05/22/2025 9:51 PM EDT [facility] Blood Venous blood specimen / Unknown Venipuncture / Unknown 05/22/2025 9:17 PM EDT 05/22/2025 9:22 PM EDT us Geoffrey Cedeño MD LAB BLOOD ORDERABLES Final Resul t [facility] [address] [place] [address], [place] [phone] from Last 3 Months Insurance MEDICAID - [place] [facility] MEDICARE Member Subscriber Plan / Payer (Ef fective 2025-Present) Name:Kirstin Adrian Relation to Subscriber:Self Name:AdrianKirstin hsieh Payer ID:[id number] Group ID:[id number] Type:Not on file Address: [address] [place] [address] [facility] [employer] Member Subscriber Plan / Payer (Ef fective 2025-Present) Name:AdrianKirstin hsieh Relation to Subscriber:Self Name:Kirstin Adrian Payer ID:[id number] Group ID:Not on file Type:Not on file Address: [address] [place] [address] MEDICARE ADVANTAGE GENERIC MEDICARE Advance Directives * [...] currently active code status orders. Care Teams Chopped Strand Operator Relationship Specialty Start Date End Date Ramon Oropeza NP [address] [place] [address] PCP - General Family Medicine 09/18/18
== END 2025-08-06 10:09 | disposition home or self-care (01) ==
LOC: HO.HGI 09:01
PROVIDERS: PCP Internal Medicine; Visit Provider Internal Medicine Gastroenterology
DX: K21.9 Gastro-esophageal reflux disease without esophagitis (principal); Z12.11 Encounter for screening for malignant neoplasm of colon; K59.09 Other constipation; K52.9 Noninfective gastroenteritis and colitis, unspecified; R19.5 Other fecal abnormalities; R14.0 Abdominal distension (gaseous); K57.10 Diverticulosis of small intestine without perforation or abscess without bleeding
CPT/HCPCS: 99499

== ENCOUNTER 2025-09-18 12:59 | Outpatient (REF) | payer OTHER, SELFPAY ==
--- NOTE | ~2025-09-18 | MM_ITS ---
EXAMINATION: MM SCREENING DIGITAL BREAST TOMOSYNTHESIS, BILATERAL CLINICAL INFORMATION: Screening. Asymptomatic. COMPARISON: Mammography: Comparison is made with available priors TECHNIQUE: Digital breast mammography with tomosynthesis is performed in both the craniocaudal and mediolateral oblique views along with computer-aided detection (CAD). FINDINGS: There are scattered areas of fibroglandular density. There are no significant masses, abnormal calcifications, or other abnormalities. MM/MM tomosynthesis screening BI IMPRESSION: No mammographic evidence of malignancy. ASSESSMENT: BI-RADS Category 1: Negative RECOMMENDATION: Routine annual mammography screening. 1 year F/U This examination should not preclude the clinical evaluation of a suspicious palpable abnormality. This patient's information was entered into a reminder system with a target due date for their next mammogram. Electronically signed by: Chelsi Beverly DO 09/22/2025 05:18 PM KASH
--- OUTSIDE RECORDS SUMMARY | 2025-09-18 18:38 | XMS_ITS | Clinical Summary ---
Author Organization [facility] [place] Address [address] [place] [address] Phone Care Team Providers Care Orthopedic Physician Assistant Name Role Phone Ramon Oropeza NP Primary Care Provider [phone] Allergies No known active allergies Medications albuterol [...] AM EDT): Hypokalemia Repleted Continue to monitor Social History Tobacco Use Types Packs/Day Years [...] on file Sexual Orientation Not on file Last Filed Vital Signs Vital Sign Reading [...] Screening 1959 Colorectal Cancer Screening: Colonoscopy 1960 Drug Screen 1959 Non-Opioid Controlled Substance Agreement 1959 Diabetes: Annual Foot Exam 1969 Hepatitis [...] Procedure Name Priority Date/Time Associated Diagnosis Comments COMPREHENSIVE METABOLIC PANEL Routine 05/24/2025 7:53 AM EDT from Last 3 Months or Most Recently Relevant to Health Maintenance Results * (ABNORMAL) Comprehensive metabolic panel (05/24/2025 7:53 AM EDT) Sodium 143 136 - 145 mmol/L LAB CHEMISTRY METHOD 05/24/2025 9:42 AM EDT [facility] Potassium 3.9 3.5 - 5.1 mmol/L LAB CHEMISTRY METHOD 05/24/2025 9:42 AM EDT [facility] Chloride 107 98 - 107 mmol/L LAB CHEMISTRY METHOD 05/24/2025 9:42 AM EDT [facility] CO2 26 20 - 31 mmol/L LAB CHEMISTRY METHOD 05/24/2025 9:[address] [facility] Anion Gap 10 10 - 17 LAB CHEMISTRY METHOD 05/24/2025 9:[address] [facility] Glucose 100 74 - 106 mg/dL LAB CHEMISTRY METHOD 05/24/2025 9:[address] [facility] BUN 22 9 - 23 mg/dL LAB CHEMISTRY METHOD 05/24/2025 9:[address] [facility] Creatinine 1.62(H) 0.55 - 1.02 mg/dL LAB CHEMISTRY METHOD 05/24/2025 9:[address] [facility] eGFR 35(L) >=60 mL/min/1 .73m2 LAB CHEMISTRY METHOD 05/24/2025 9:[address] [facility] Comment:Calculation based on the Chronic Kidney Disease Epidemiology Collaboration (CKD-EPI) equation refit without adjustment for race. BUN/Creatinine Ratio 13.6 12.0 - 20.0 LAB CHEMISTRY METHOD 05/24/2025 9:[address] [facility] Calcium 8.9 8.3 - 10.6 mg/dL LAB CHEMISTRY METHOD 05/24/2025 9:[address] [facility] AST (SGOT) 18 0 - 34 unit/L LAB CHEMISTRY METHOD 05/24/2025 9:[address] [facility] ALT (SGPT) 16 10 - 49 unit/L LAB CHEMISTRY METHOD 05/24/2025 9:[address] [facility] Alkaline Phosphatase 59 46 - 116 unit/L LAB CHEMISTRY METHOD 05/24/2025 9:[address] [facility] Total Protein 6.0 5.7 - 8.2 g/dL LAB CHEMISTRY METHOD 05/24/2025 9:[address] [facility] Albumin 3.0(L) 3.4 - 5.0 g/dL LAB CHEMISTRY METHOD 05/24/2025 9:[address] [facility] Total Bilirubin 0.3 0.3 - 1.2 mg/dL LAB CHEMISTRY METHOD 05/24/2025 9:42 AM EDT [facility] Blood Venous blood specimen / Unknown Venipuncture / Unknown 05/24/2025 7:53 AM EDT 05/24/2025 9:04 AM EDT us Brandin López MD LAB BLOOD ORDERABLES Final R esult [facility] [address] [place] [address], [place] [phone] from Last 3 Months or Most Recently Relevant to Health Maintenance Insurance MEDICAID - [place] [facility] MEDICARE Member Subscriber Plan / Payer (Ef fective 2025-Present) Name:Nena Adrian Relation to Subscriber:Self Name:Nena Adrian Payer ID:[id number] Group ID:[id number] Type:Not on file Address: [address] [place] [address] [facility] [employer] OPT[employer] Member Subscriber Plan / Payer (Ef fective 2025-Present) Name:Nena Adrian Relation to Subscriber:Self Name:Nena Adrian Payer ID:[id number] Group ID:Not on file Type:Not on file Address: [address] [place] [address] MEDICARE ADVANTAGE GENERIC MEDICARE Advance Directives * [...] currently active code status orders. Care Teams Orthopedic Physician Assistant Relationship Specialty Start Date End Date Ramon Oropeza NP [address] [place] [address] PCP - General Family Medicine 09/18/18
== END 2025-09-18 13:00 | disposition home or self-care (01) ==
LOC: HO.MAMMO 12:59
PROVIDERS: PCP Internal Medicine; Visit Provider Internal Medicine
DX: Z12.31 Encounter for screening mammogram for malignant neoplasm of breast (principal)
CPT/HCPCS: 77063; 77067

== ENCOUNTER → 2025-09-18 13:30 | Outpatient (BNV) | payer OTHER, SELFPAY | PROVIDERS: PCP Internal Medicine; Visit Provider Internal Medicine | DX: Z12.31 Encounter for screening mammogram for malignant neoplasm of breast (principal) | CPT/HCPCS: 77063; 77067 ==

== ENCOUNTER 2025-09-24 14:12 | Outpatient (AMB) | payer OTHER, SELFPAY ==
[2025-09-24 14:15] VITALS: BP 139/60; PULSE 75; RESP 16; O2SAT 95; BMI 30.5
--- NOTE | 2025-09-24 14:15 | A.OFFVIS_ITS ---
Vital Signs 09/24/25 14:15 Height 5 ft 2 in Weight 167 lb BMI 30.5 BP 139/60 Blood Pressure Location Lt brachial Position Sitting Respiration 16 Pulse 75 Pulse Source Pulse Oximeter Pulse Oximetry (%) 95 Oxygen Delivery Method Room Air Intake Visit Reasons: ITDD REFILL Repair Weaver Required: Yes Repair Weaver Language: Arabic Accompanied by: Self / Same As Patient Allergies Seasonal Allergies Allergy (Mild, Verified 09/24/25 14:24) Unknown HPI Comments Details: Norma is here for pump adjustment and intrathecal pain pump refill. She reports that she feels more less adequate pain control however missing 1 dose a day to provide extensive coverage. I will add 1 more dose to her regimen, see as below. I will continue next time with the same concentration of the medications including hydromorphone 800 micro g per mL or 8 milligrams/mL bupivacaine 40 milligrams/mL and baclofen 600 micro g per mL. She denies side effects from the medications. [facility] Medical History Osteopenia Asthma-COPD overlap syndrome Lumbar back pain with radiculopathy affecting right lower extremity Sacroiliac joint dysfunction of right side Sacroiliitis Disc degeneration, lumbar HPV test positive Chronic pain syndrome Acute blood loss anemia Hypertension Osteoarthritis of right knee M[place]ALL (dyspnea on exertion) Presence of dental bridge Sleep apnea Diabetes Overflow stress urinary incontinence in female Urge incontinence Primary osteoarthritis of hands, bilateral Loose right total knee arthroplasty Hx of carpal tunnel syndrome Pulmonary nodules GERD (gastroesophageal reflux disease) Surgical History Hx of tubal ligation H/O knee surgery History of orthopedic surgery History of arthroplasty of right knee History of pubovaginal sling Hx of colonoscopy History of carpal tunnel release of both wrists History of esophagogastroduodenoscopy (EGD) Previous back surgery History of endometrial ablation Hx of section Family History Mother Diabetes Arthritis Brother Cancer Paternal Aunt Breast cancer Social History Household Members: None Housing: Apartment Are you a primary hospice home care coordinator to a significant other at home: No Do you presently have visiting nurse or other home services: No Alcohol intake: former Year quit: 2018 Patient Tobacco Use Status: Current everyday Tobacco user Tobacco use type: Cigarette Cigarettes Per Day: 5 Years Smoked: 2014 Second Hand Smoke Exposure: No Substance Use Type: Crack/Cocaine and Marijuana service: No Current occupational status: disabled Current occupation: rt handed Female Reproductive History Menstrual Age of Menarche: 11 Review of Systems Const All systems reviewed & are unremarkable except as noted in HPI and below ENT Reports Normal hearing present Neuro Reports Normal hearing present and Denies Abnormal speech present Physical Exam Vital Signs: Last Vital Signs Pulse 75 09/24/25 14:15 Resp 16 09/24/25 14:15 BP 139/60 09/24/25 14:15 Pulse Ox 95 09/24/25 14:15 Oxygen Delivery Method Room Air 09/24/25 14:15 BMI result Body Mass Index 30.5 Const General: no acute distress Nutritional Appearance: obese Orientation/consciousness: patient oriented x3 Limitations: language barrier HEENT Head: Yes atraumatic Mouth: no other ( thrush) Throat: No postnasal drainage Eyes General: appearance normal, both eyes and all related structures Sclerae: sclerae normal EOM: EOMs intact bilaterally Neck Neck: Yes normal visual inspection Lymphatic: no lymphadenopathy noted Chest Chest palpation & inspection: normal inspection of the chest Resp Effort & Inspection: normal respiratory effort, able to speak in complete sentences, normal respiratory pattern, no audible wheezes and no cough Auscultation: clear to auscultation bilaterally Cardio Jugular venous distension: no JVD GI Inspection: Yes normal to inspection and Yes distended Auscultation: normal bowel sounds Skin General skin exam: no rashes or lesions noted Neuro General: patient oriented x3, gait normal and moves all extremities Cranial nerves: Yes Normal hearing present Speech: No Abnormal speech present Extrem General: Yes normal to inspection Psych Appearance: grossly normal Mental Status: mental status grossly normal Assessment & Plan Assessment & Plan (1) Vertebrogenic low back pain: Code(s): M54.51 - Vertebrogenic low back pain Category: Medical Plan: (2) Lumbar back pain with radiculopathy affecting right lower extremity: Code(s): M54.16 - Radiculopathy, lumbar region Category: Medical (3) Sacroiliac joint dysfunction of right side: Code(s): M53.3 - Sacrococcygeal disorders, not elsewhere classified Category: Medical (4) Sacroiliitis: Code(s): M46.1 - Sacroiliitis, not elsewhere classified Category: Medical (5) Disc degeneration, lumbar: Code(s): M51.36 - Other intervertebral disc degeneration, lumbar region Category: Medical (6) Spondylosis of lumbar spine: Code(s): M47.816 - Spondylosis without myelopathy or radiculopathy, lumbar region Category: Medical (7) Chronic pain syndrome: Code(s): G89.4 - Chronic pain syndrome Category: Medical Plan: Intrathecal pump refill. THE PATIENT CAME TODAY IN THE office FOR THE CHANGE OF THE MEDICATION IN her PAIN PUMP. The name and date of were verified and informed consent was obtained for the procedure. ?The pump was interrogated and the residual amount of fluid was found to be 1.9 mL. SHE WAS POSITIONED prone on the bed AND THE AREA OF THE INTRATHECAL PUMP WAS PREPPED WITH CHLORAPREP. The fenestrated drape was sterilely applied over the area of the pump. Sterile gloves were worn and of the aspiration system was assembled containing 2 in 22 gauge noncoring needle, the needle was connected to extension tubing which was connected to the 20 cc sterile syringe. The pain pump was palpated under the skin in the patient's right buttock area. The needle was inserted through the skin and the central plug of the pain pump and fluid was aspirated. The clear fluid was going into the syringe the total amount of the fluid was 3.9 mL .. After that a new batch? of medication was obtained which was containing hydromorphone in concentration 4000 micro g/ml , baclofen 600 micro g and bupivacaine 40 mg per ml. The admixture was made in 20 cc syringe prepared by [facility] compounding pharmacy. The syringe was connected to the bacterial filter, and then connected to the extension tubing. After that the medication in the syringe was slowly instilled into the pump with aspirations at 15 and 5 cc fajardo.? The pump was reprogrammed with the doses of 384.7 micro g per day (minimal daily dose per pump with current concentration of hydromorphone 8000 mcg per ml) with corresponding dose of bupivacaine of the continuous medication , after 82 hours of bridge bolus she will be able to receive every 3 hours as previously the dose of h ydromorphone which was continued as 200 micro g of hydromorphone and with corresponding doses of the baclofen and bupivacaine. She will be able to receive this doses 6 times a day. (8) Generalized osteoarthritis: Code(s): M15.9 - Polyosteoarthritis, unspecified Category: Medical (9) Edema of both lower extremities: Code(s): R60.0 - Localized edema Category: Medical (10) Abdominal pain: Code(s): R10.9 - Unspecified abdominal pain Category: Medical Plan I will see this patient next time in 79 days Coding Level of Care Code Est Pt Level 3 (35208) Procedure Only Diagnoses Vertebrogenic low back pain M54.51 Lumbar back pain with radiculopathy affecting right lower extremity M54.16 Sacroiliac joint dysfunction of right side M53.3 Sacroiliitis M46.1 Disc degeneration, lumbar M51.36 Spondylosis of lumbar spine M47.816 Chronic pain syndrome G89.4 Generalized osteoarthritis M15.9 Edema of both lower extremities R60.0 Abdominal pain R10.9
--- OUTSIDE RECORDS SUMMARY | 2025-09-24 18:26 | XMS_ITS | Encounter Summary ---
Author Organization [employer] Address [address] [place] [address] Care Team Providers Care Dynamometer Tester Engine Name Role Phone Sofia Montalvo MD Primary Care Provide r Reason for Visit * Reason Comments Med Refill Encounter Details Date Type Department Care Team ([facility] st Contact Info) Description 02/18/2024 Refill [facility] [address] [place], [place] [phone] Sofia Montalvo MD [address] [place], [place] [phone] Chronic diarrhea Social History Tobacco Use Types [...] Care Team (Late st Contact Info) Description 10/27/2025 1:30 PM EST Office Visit [facility] [address] [place] [address] MarshallCelina cortez, OD [address] [place] [address] 11/13/2025 10:15 AM EST Office Visit [facility] [address] [place] [address] Tyrell Madrigal MD [address] [place] [address] 12/21/2025 1:30 PM EDT Office Visit [facility] [address] [place] [address] Socorro Johnson documented as of this encounter Visit Diagnoses Diagnosis Chronic diarrhea Diarrhea documented in this encounter Care Teams Dynamometer Tester Engine Relationship Specialty Start Date End Date Sofia Montalvo MD [address] [place] [id number] PCP - General Family Medicine 09/23/21 documented as of this encounter
--- OUTSIDE RECORDS SUMMARY | 2025-09-24 18:27 | XMS_ITS | Encounter Summary ---
Author Organization [employer] Address [address] [place] [address] Care Team Providers Care Supervisor Wound Name Role Phone Sofia Montalvo MD Primary Care Provide r Encounter Details Date Type Department Care Team ([facility] st Contact Info) Description 05/14/2025 Orders Only [facility] [address] [place], [place] [phone] Sofia Montalvo MD [address] [place], [place] [phone] Social History Tobacco Use Types Packs/Day Years [...] the past 12 months, has t he [employer] gas, oil or water company threatened to [...] Description 10/27/2025 1:30 PM EST Office Visit [facility] [address] [place] [address] Marshall, Cleina, OD [address] [place] [address] 11/13/2025 10:15 AM EST Office Visit [facility] [address] [place] [address] Tyrell Madrigal MD [address] [place] [address] 12/21/2025 1:30 PM EDT Office Visit [facility] AD[facility] D[facility] [address] [place] [address] Socorro Johnson documented as of this encounter Visit Diagnoses Not on filedocumented in this encounter Additional Health Concerns Assessment Noted Time PHQ-9 Depression Total Score: 15 025 1:50 PM EDT documented as of this encounter Care Teams Supervisor Wound Relationship Specialty Start Date End Date Sofia Montalvo MD [address] [place] [address] PCP - General Family Medicine 09/23/21 documented as of this encounter
--- OUTSIDE RECORDS SUMMARY | 2025-09-24 18:27 | XMS_ITS | Encounter Summary ---
Author Organization [employer] Address [address] [place] [address] Care Team Providers Care Respiratory Tech Name Role Phone Sofia Montalvo MD Primary Care Provide r Reason for Visit * Reason Comments Med Refill Encounter Details Date Type Department Care Team ([facility] Contact Info) Description 07/26/2025 Refill [facility] [address] [place], [place] [phone] Sofia Montalvo MD [address] [place], [place] [phone] Essential hypertension Social History Tobacco Use Types [...] Description 10/27/2025 1:30 PM EST Office Visit [facility] [address] [place] [address] Marshall, Celina, OD [address] [place] [address] 11/13/2025 10:15 AM EST Office Visit [facility] [address] [place] [address] Tyrell Madrigal MD [address] [place] [address] 12/21/2025 1:30 PM EDT Office Visit [facility] AD[facility] [address] [place] [address] Socorro Johnson documented as of this encounter Visit Diagnoses Diagnosis Essential hypertension Unspecified essential hypertension documented in this encounter Additional Health Concerns Assessment Noted Time PHQ-9 Depression Total Score: 15 025 3:06 PM EDT documented as of this encounter Care Teams Respiratory Tech Relationship Specialty Start Date End Date Sofia Montalvo MD [address] [place] [address] PCP - General Family Medicine 09/23/21 documented as of this encounter
--- OUTSIDE RECORDS SUMMARY | 2025-09-24 18:27 | XMS_ITS | Data Portability ---
Author Organization [facility] [employer] [facility], [facility] Address [address] [place] [address] Care Team Providers Care Silver Buffer Name Role Phone [facility] Referring Provider Unavailable Referring Provider [phone] Assessment No assessment recorded. Plan of Treatment [...] Name and Address Organization Details Recorded Time 7714 ibuprofen medicatio n Not available Not available Not available 08/05/2024 5640 RxNorm Not Available [facility] 4 03:39:17 Medications Name Sig [...] t Available Vitals Date Recorded Oxygen saturation Heart rate Respiratory rate Body temperature Systolic And Diastolic Provider Name and Address Organization Details Last Updated DateTime 4 97 % 62 /min 16 /min 98.1 [degF] 112/70 mm[Hg] Not Available [employer] - production 4 11:57:57 Date Recorded Oxygen saturation Respiratory rate Body weight Heart rate Systolic And Diastolic Provider Name and Address Organization Details Last Updated DateTime 3 98 % 16 /min 63419.7 2 g 60 /min 151/66 mm[Hg] Not Available [employer] - production 3 20:01:13 Social History None recorded. Functional Status None recorded. Mental Status None recorded. Family History Nothing Reported. Medical History No medical history recorded. Gynecological HistoryNo gynecological history recorded. Obstetrics History GPAL:G 0 P 0 0 0 0 Past Encounters Encounter ID Performer Location Encounter Start Date Encounter Closed Date Diagnosis/Indication Diagnosis SNOMED-CT Code Diagnosis ICD10 Code Diagnosis IMO Codes Diagnosis Note [id number] Sandy Fernández MD Main - [address] [phone] 03/29/2023 20:01:01 03/30/2023 11:29:07 Edema of lower extremity 883992057 R60.0 Evaluation in the field was performed by my gypsum block setter colleague, as noted above, I provided real-time [...] shortness of breath, cough, chest pain, fever. Yuli Betancourt MD Main - [address] [phone] 11/12/2023 11:57:55 11/13/2023 10:18:19 Diarrhea 73108543 R19.7 I provided real -time medical direction via phone for this encounter, and was available for additional phone based assistance as needed. I have reviewed and agree with the Assessment and Plan as documented by the Credit Associate. Patient given the opportunit y to ask [...] Recorded Advance Directives Directive None Recorded Payers Insurance Date Sequence Insurance Name Policy Number Policy Manley Covered Member ID Manley Member ID Guarantor Name 12/31/2023 1 [facility] - DOS ON OR AFTER 2023 - DUAL ELIGIBLE - SKILLED NURSING OPTIONS AND ONE CARE (MEDICARE REPLACEMENT/ADV ANTAGE - HMO) Norma Fried [id number] Norma Fried Notes Date Note Type Note Provider Name [...] .................. .................. .................. .................. .................. .................. ............... Credit [employer] Note From Fermin Dennis: pt requesting visit [...] warranting a 911 call/trip to the hospital. Credit [employer] Allergies: Ibuprofen .................. .................. .................. .................. .................. .................. .................. ............... Disposition: Fulfilled Sandy Fernández MD [address] [place] [address],[address], [place], [address], [employer] 03/29/2023 21:02:04 11/12/2023 text/html HPI: HX Anemia. [...] .................. .................. .................. .................. .................. .................. ............... [employer] Note From Dre Pack: Dispatched to the [...] .................. ............... Disposition: Fulfilled Yuli Betancourt MD [address] [place] [address],[address] [facility], [place], [address], [employer] 11/12/2023 21:44:43 OBGyn Episode No OBEpisode recorded.
--- OUTSIDE RECORDS SUMMARY | 2025-09-24 18:27 | XMS_ITS | Encounter Summary ---
Author Organization [employer] Address [address] 7[address] [place] [address] Care Team Providers Care Correspondent Name Role Phone Sofia Montalvo MD Primary Care Provide r Encounter Details Date Type Department Care Team ([facility] st Contact Info) Description 09/18/2025 Orders Only [facility] [address] [place], [place] [phone] Sofia Montalvo MD [address] [place], [place] [phone] Social History Tobacco Use Types Packs/Day Years [...] the past 12 months, has t he [employer], gas, oil or water company threatened to [...] Description 10/27/2025 1:30 PM EST Office Visit [facility] OPTOM[facility]RY [address] [place] [address] Marshall, Celina, OD 230 [place] [address] 11/13/2025 10:15 AM EST Office Visit [facility] 230 [place] [address] Tyrell Madrigal MD 230 [place] [address] 12/21/2025 1:30 PM EDT Office Visit [facility] ADULT DENTAL 230 [place] [address] Socorro Johnson documented as of this encounter Goals Goal Patient Goal Type Associated Problems Recent Progress Patient-Stated? Author Help patients manage their type 2 diabetes Care Plan Help patients manage their type 2 diabetes Caitlin Avila, RN Weekly blood pressure task Care Plan Weekly blood pressure task No Caitlin Roland, RN Help patients manage their type 2 diabetes Care Plan Help patients manage their type 2 diabetes No Caitlin Roland, RN Patient has chronic kidney disease Care Plan Patient has chronic kidney disease No Caitlin Roland RN Weekly blood pressure task Care Plan Weekly blood pressure task No Caitlin Roland, RN Patient has chronic kidney disease Care Plan Patient has chronic kidney disease No Caitlin Roland RN Weekly blood pressure task Care Plan Weekly blood pressure task No Nida Barillas LPN Weekly blood pressure task Care Plan Weekly blood pressure task No Nida Barillas LPN Patient has chronic kidney disease Care Plan Patient has chronic kidney disease No Nida Barillas LPN Patient has chronic kidney disease Care Plan Patient has chronic kidney disease No Nida Barillas LPN Weekly blood pressure task Care Plan Weekly blood pressure task No Jessica Desir Weekly blood pressure task Care Plan Weekly blood pressure task No Jessica Desir Patient has chronic kidney disease Care Plan Patient has chronic kidney disease No Jessica Desir Patient has chronic kidney disease Care Plan Patient has chronic kidney disease No Jessica Desir Weekly blood pressure task Care Plan Weekly blood pressure task No Andrey De Jesus DDS Weekly blood pressure task Care Plan Weekly blood pressure task No Andrey De Jesus DDS Patient has chronic kidney disease Care Plan Patient has chronic kidney disease No Andrey De Jesus DDS Patient has chronic kidney disease Care Plan Patient has chronic kidney disease No Andrey De Jesus DDS Weekly blood pressure task Care Plan Weekly blood pressure task No Jake Linares MA Weekly blood pressure task Care Plan Weekly blood pressure task No Jake Linares [place] Patient has chronic kidney disease Care Plan Patient has chronic kidney disease No Jake Linares [place] Patient has chronic kidney disease Care Plan Patient has chronic kidney disease No Jake Linares MA Weekly blood pressure task Care Plan Weekly blood pressure task No April Guerrier [place] Weekly blood pressure task Care Plan Weekly blood pressure task No April Guerrier [place] Patient has chronic kidney disease Care Plan Patient has chronic kidney disease No April Guerrier [place] Patient has chronic kidney disease Care Plan Patient has chronic kidney disease No April Guerrier MA documented as of this encounter Procedures Procedure Name Priority Date/Time Associated Diagnosis Comments BI MAMMOGRAM SCREENING TOMOSYNTHESIS BILATERAL Routine 09/18/2025 1:09 PM EST documented in this encounter Results * BI Mammogram Screening Tomosynthesis Bilateral (09/18/2025 1:09 PM EST) Anatomical Region Laterality Modality Breast Bilateral Mammography 09/18/2025 1:09 PM EST Narrative 09/22/2025 5:20 PM EST [facility] [address] [place] [address] Mammography Report Signed Patient: Norma Arcos MR#: [id number] : 1960 Acct:[id number] Age/Sex: 65 / F ADM Date: 09/18/25 Loc: HO.MAMMO Attending Dr: Sofia Art MD Ordering Physician: Sofia Montalvo MD Results: 1Negative Date of Service: 09/18/25 Follow Up: 1 Year From Orig inal Mammogram Procedure(s): MM tomosynthesis screening BI Accession Number(s): [id number] cc: Sofia Montalvo MD Reason For Exam: SCREENING EXAMINATION: MM SCREENING DIGITAL BREAST TOMOSYNTHESIS, BILATERAL CLINICAL INFORMATION: Screening. Asymptomatic. COMPARISON: Mammography: Comparison is made with available priors TECHNIQUE: Digital breast mammography with tomosynthesis is performed in both the craniocaudal and mediolateral oblique views along with computer-aided detection (CAD). FINDINGS: There are scattered areas of fibroglandular density. There are no significant masses, abnormal calcifications, or other abnormalities. MM/MM tomosynthesis screening BI IMPRESSION: No mammographic evidence of malignancy. ASSESSMENT: BI-RADS Category 1: Negative RECOMMENDATION: Routine annual mammography screening. 1 year F/U This examination should not preclude the clinical evaluation of a suspicious palpable abnormality. This patient's information was entered into a reminder system with a target due date for their next mammogram. Electronically signed by: Chelsi Beverly DO 09/22/2025 05:18 PM EST Dictated By: Tyminski,Chelsi DO Signed By: <Electronically signed by Chelsi Beverly DO in OV> 09/22/251717 DD/ 1309 TD/TT: 09/18/25 1329 Fermentation Operator: Procedure Note Donotmagyinterpreter, Image - 09/22/[facility] [address] [place] [address] Mammography Report Signed Patient: Norma ArocsMR#: [id number] : 1960cct:[id number] Age/Sex: 65 / FADM Date: 09/18/25 Loc: HO.MAMMO Attending Dr: Sofia Art MD Ordering Physician: Sofia Montalvo MDResults: 1Negative Date of Service: 09/18/25Follow Up: 1 Year From Orig inal Mammogram Procedure(s): MM tomosynthesis screening BI Accession Number(s): [id number] cc: Sofia Montalvo MD Reason For Exam: SCREENING EXAMINATION: MM SCREENING DIGITAL BREAST TOMOSYNTHESIS, BILATERAL CLINICAL INFORMATION: Screening. Asymptomatic. COMPARISON: Mammography: Comparison is made with available priors TECHNIQUE: Digital breast mammography with tomosynthesis is performed in both the craniocaudal and mediolateral oblique views along with computer-aided detection (CAD). FINDINGS: There are scattered areas of fibroglandular density. There are no significant masses, abnormal calcifications, or other abnormalities. MM/MM tomosynthesis screening BI IMPRESSION: No mammographic evidence of malignancy. ASSESSMENT: BI-RADS Category 1: Negative RECOMMENDATION: Routine annual mammography screening. 1 year F/U This examination should not preclude the clinical evaluation of a suspicious palpable abnormality. This patient's information was entered into a reminder system with a target due date for their next mammogram. Electronically signed by: Chelsi Beverly DO 09/22/2025 05:18 PM EST Dictated By: Chelsi Beverly DO Signed By: <Electronically signed by Chelsi Beverly DO in OV> 09/22/25 1718 DD/ 1309 TD/TT: 09/18/25 1329 Fermentation Operator: Sofia Art MD IMG BI PROCEDURES Simeon sweta Result - Final documented in this encounter Visit Diagnoses Not on filedocumented in this encounter Additional Health Concerns Active Problems Noted Date Diagnosed Date Help patients manage their type 2 diabetes 08/20 Weekly blood pressure task 08/20/2025 Help patients manage their type 2 diabetes 08/20 Patient has chronic kidney disease 08/20/2025 Weekly blood pressure task 08/20/2025 Patient has chronic kidney disease 08/20/2025 Weekly blood pressure task 08/27/2025 Weekly blood pressure task 08/27/2025 Patient has chronic kidney disease 08/27/2025 Patient has chronic kidney disease 08/27/2025 Weekly blood pressure task 09/07/2025 Weekly blood pressure task 09/07/2025 Patient has chronic kidney disease 09/07/2025 Patient has chronic kidney disease 09/07/2025 Weekly blood pressure task 09/15/2025 Weekly blood pressure task 09/15/2025 Patient has chronic kidney disease 09/15/2025 Patient has chronic kidney disease 09/15/2025 Weekly blood pressure task 09/15/2025 Weekly blood pressure task 09/15/2025 Patient has chronic kidney disease 09/15/2025 Patient has chronic kidney disease 09/15/2025 Weekly blood pressure task 09/16/2025 Weekly blood pressure task 09/16/2025 Patient has chronic kidney disease 09/16/2025 Patient has chronic kidney disease 09/16/2025 Assessment Noted Time PHQ-9 Depression Total Score: 15 025 3:06 PM EDT documented as of this encounter Care Teams Correspondent Relationship Specialty Start Date End Date Sofia Montalvo MD [address] [place] [address] PCP - General Family Medicine 09/23/21 documented as of this encounter
--- OUTSIDE RECORDS SUMMARY | 2025-09-24 18:27 | XMS_ITS | Encounter Summary ---
Author Organization [employer] Address [address] [place] [address] Care Team Providers Care Security Software Engineer Name Role Phone Sofia Montalvo MD Primary Care Provide r Reason for Visit * Reason Comments Med Refill Encounter Details Date Type Department Care Team ([facility] st Contact Info) Description 02/25/2024 Refill [facility] [address] [place], [place] [phone] Sofia Montalvo MD 230 [place], [place] [phone] Lumbar disc disease Social History Tobacco Use [...] Description 10/27/2025 1:30 PM EST Office Visit [facility] OPTOMETRY [address] [place], [place] [phone] MarshallCelina cortez, OD 230 [place] [address] 11/13/2025 10:15 AM EST Office Visit [facility] MEDICINE [address] [place] [address] Tyrell Madrigal MD 230 [place] [address] 12/21/2025 1:30 PM EDT Office Visit [facility] ADULT DENTAL [address] [place] [address] Socorro Johnson documented as of this encounter Visit Diagnoses Diagnosis Lumbar disc disease Other and unspecified disc disorder of lumbar region documented in this encounter Care Teams Security Software Engineer Relationship Specialty Start Date End Date Sofia Montalvo MD [address] [place] [address] PCP - General Family Medicine 09/23/21 documented as of this encounter
--- OUTSIDE RECORDS SUMMARY | 2025-09-24 18:27 | XMS_ITS | Encounter Summary ---
Author Organization [email or web address] Address [address] 7t [place] [address] Care Team Providers Care Operations Lead Name Role Phone Sofia Montalvo MD Primary Care Provide r Encounter Details Date Type Department Care Team (Late Contact Info) Description 07/06/2023 Orders Only [facility] [address] [place] [address] Provider, MD Alli Social History Tobacco Use [...] Department Care Team (Late Contact Info) Description 10/27/2025 1:30 PM EST Office Visit [facility] [address] [place], [place] [phone] Celina Olivares, OD 230 [place] [address] 11/13/2025 10:15 AM EST Office Visit [facility] [address] [place] [address] Tyrell Madrigal MD 230 [place] [address] 12/21/2025 1:30 PM EDT Office Visit [facility] ADULT DENTAL [address] [place] [address] Socorro Johnson documented as of this encounter Procedures Procedure Name Priority Date/Time Associated Diagnosis Comments BIOPSY CERVIX Routine 04/19/2021 documented in this encounter Results * Biopsy cervix (04/19/2021) us Historical Provider IN CLINIC/BEDSIDE ORDERAB LES Final Result documented in this encounter Visit Diagnoses Not on filedocumented in this encounter Care Teams Operations Lead Relationship Specialty Start Date End Date Sofia Montalvo MD [address] [place] [address] PCP - General Family Medicine 09/23/21 documented as of this encounter
--- OUTSIDE RECORDS SUMMARY | 2025-09-24 18:27 | XMS_ITS | Encounter Summary ---
Author Organization [employer] Address [address] [place] [address] Care Team Providers Care Bufferer Name Role Phone Sofia Montalvo MD Primary Care Provide r Reason for Visit * Reason Onset Date Comments Nurse Triage 09/22/2025 Encounter Details Date Type Department Care Team ([facility] Contact Info) Description 09/22/2025 Telephone [facility] 230 [place], [place] [phone] Sofia Montalvo MD 230 [place], [place] [phone] Nurse Triage Social History Tobacco Use Types [...] encounter Miscellaneous Notes * Telephone Encounter - Mary Martinez RN - 09/22/2025 11:42 AM EST Call returned to pt via [employer] #[id number]. Pt c/o -07/17 stomach pain with bloating and abdominal distention. Pt reports that pain is unbearable. Reports that her belly is big and she is not able to eat food. Reports that she has had 2 soft bowel movements today with last BP 2 hrs ago. Pt denies nausea, vomiting, fever, rectal bleeding. Reports that she feels like she has a hole in her stoma ch. Pt reports that she advised pcp at last appointment she needs to see a new GI specialist because Dr. Britton always tells her she has gastritis and inflammation. Reports meds prescribed by pcp and OTC Mylanta and Tums only provide slight temporary relief. Advised pcp placed GI referral at last office visit and pt will be contacted when appointment is available. Recommended that pt seek evaluation in ED for uncontrolled pain and inability to eat. Pt verbalized understanding and states she hopes GI office calls her soon. Protocol Used: Abdominal Pain - Female (Adult) Protocol-Based Disposition: Go to ED Now Positive Triage Questions: * Severe abdominal pain (e.g., excruciating) * Mild to Moderate constant pain and age > 60 years * All higher-acuity triage questions were negative. Care Advice Discussed: * Reasons To Call Back - You become worse * Telephone Encounter - Shay Espinosa - 09/22/2025 11:24 AM EST Symptom: Abdominal Pain - Female - Not Outcome: Schedule an urgent appointment (within 4 hours) or talk to a nurse or provider soon Reason: Getting worse Please contact pt at [phone]. (Bahraini Speaker) documented in this encounter Plan of Treatment Upcoming Encounters Date Type Department Care Team (Late st Contact Info) Description 10/27/2025 1:30 PM EST Office Visit [facility] [address] [place] [address] Marshall, Celina, OD 230 [place] [address] 11/13/2025 10:15 AM EST Office Visit [facility] [address] [place] [address] Tyrell Madrigal MD 230 [place] [address] 12/21/2025 1:30 PM EDT Office Visit [facility]ULT D[facility] [address] [place] [address] Socorro Johnson documented as of this encounter [...] Patient has chronic kidney disease No Caitlin Roland, RN Weekly blood pressure task Care Plan Weekly blood pressure task No Caitlin Roland, RN Patient has chronic kidney disease Care Plan Patient has chronic kidney disease No Caitlin Roland, RN Weekly blood pressure task Care Plan Weekly blood pressure task No Nida Barillas LPN Weekly blood pressure task Care Plan Weekly blood pressure task No Nida Barillas LPN Patient has chronic kidney disease Care Plan Patient has chronic kidney disease No Nida Barillas SANITATION LABORER Patient has chronic kidney disease Care Plan Patient has chronic kidney disease No Nida Barillas SANITATION LABORER Weekly blood pressure task Care Plan Weekly [...] chronic kidney disease No April Guerrier [place] Weekly blood pressure task Care Plan Weekly blood pressure task No Shay Espinosa Weekly blood pressure task Care Plan Weekly blood pressure task No Shay Espinosa Patient has chronic kidney disease Care Plan Patient has chronic kidney disease No Shay Espinosa Patient has chronic kidney disease Care Plan Patient has chronic kidney disease No Jesús, Shay documented as of this encounter Visit Diagnoses [...] 09/16/2025 Patient has chronic kidney disease 09/16/2025 Weekly blood pressure task 09/22/2025 Weekly blood pressure task 09/22/2025 Patient has chronic kidney disease 09/22/2025 Patient has chronic kidney disease 09/22/2025 Assessment Noted Time PHQ-9 Depression Total Score: 15 06/18/ 025 3:06 PM EDT documented as of this encounter Care Teams Bufferer Relationship Specialty Start Date End Date Sofia Montalvo MD [address] [place] [address] PCP - General Family Medicine 09/23/21 documented as of this encounter
--- OUTSIDE RECORDS SUMMARY | 2025-09-24 18:27 | XMS_ITS | Encounter Summary ---
Author Organization [employer] Address [address] 7[address] [place] [address] Care Team Providers Care Materials Planning Manager Name Role Phone Sofia Montalvo MD Primary Care Provide r Encounter Details Date Type Department Care Team (Latest Contact Info) Description 01/21/2019 Abstract [facility] Dental, Provider, DDS Social History [...] Description 10/27/2025 1:30 PM EST Office Visit [facility] OPTOMETRY [address] [place] [address] Celina Olivares, OD 230 [place] [address] 11/13/2025 10:15 AM EST Office Visit [facility] [address] [place] [address] Tyrell Madrigal MD 230 [place] [address] 12/21/2025 1:30 PM EDT Office Visit [facility] ADULT DENTAL [address] [place] [address] Socorro Johnson documented as of this encounter Visit Diagnoses Not on filedocumented in this encounter Care Teams Materials Planning Manager Relationship Specialty Start Date End Date Sofia Montalvo MD 230 [place] [address] PCP - General Family Medicine 09/23/21 documented as of this encounter
--- OUTSIDE RECORDS SUMMARY | 2025-09-24 18:27 | XMS_ITS | Encounter Summary ---
Author Organization [employer] Address [address] 7[address] [place] [address] Care Team Providers Care Space And Missile Operations Spacelift Name Role Phone Sofia Montalvo MD Primary Care Provide r Encounter Details Date Type Department Care Team ([facility] st Contact Info) Description 12/09/2024 Telephone [facility] [address] [place], [place] [phone] Sofia Montalvo MD [address] [place], [place] [phone] Social History Tobacco Use Types Packs/Day Years [...] t he electric, gas, oil or water [employer] threatened to shut off services in your [...] Description 10/27/2025 1:30 PM EST Office Visit [facility] OPTOMETRY [address] [place], [place] [phone] Celina Olivares, OD 230 [place] [address] 11/13/2025 10:15 AM EST Office Visit [facility] [address] [place] [address] Tyrell Madrigal MD [address] [place] [address] 12/21/2025 1:30 PM EDT Office Visit [facility] ADULT DENTAL [address] [place] [address] Socorro Johnson documented as of this encounter Visit Diagnoses Not on filedocumented in this encounter Care Teams Space And Missile Operations Spacelift Relationship Specialty Start Date End Date Sofia Montalvo MD [address] [place] [address] PCP - General Family Medicine 09/23/21 documented as of this encounter
--- OUTSIDE RECORDS SUMMARY | 2025-09-24 18:27 | XMS_ITS | Encounter Summary ---
Author Organization [employer] Address [address] 7[address] [place] [address] Care Team Providers Care Solar Project Engineer Name Role Phone Sofia Montalvo MD Primary Care Provide r Reason for Visit * Reason Comments Med Refill Encounter Details Date Type Department Care Team ([facility] st Contact Info) Description 11/28/2024 Refill [facility] MED[facility] [address] [place], [place] [phone] Sofia Montalvo MD [address] [place], [place] [phone] Chronic diarrhea Social History Tobacco Use Types [...] Description 10/27/2025 1:30 PM EST Office Visit [facility] OPTOMETRY [address] [place] [address] MarshallCelina cortez, OD 230 [place] [address] 11/13/2025 10:15 AM EST Office Visit [facility] MEDICINE [address] [place] [address] Tyrell Madrigal MD [address] [place] [address] 12/21/2025 1:30 PM EDT Office Visit [facility] ADULT DENTAL [address] [place] [address] Socorro Johnson documented as of this encounter Visit Diagnoses Diagnosis Chronic diarrhea Diarrhea documented in this encounter Care Teams Solar Project Engineer Relationship Specialty Start Date End Date Sofia Montalvo MD [address] [place] [address] PCP - General Family Medicine 09/23/21 documented as of this encounter
--- OUTSIDE RECORDS SUMMARY | 2025-09-24 18:27 | XMS_ITS | Encounter Summary ---
Author Organization [employer] Address [address] [place] [address] Care Team Providers Care Tiedown Operator Name Role Phone Sofia Montalvo MD Primary Care Provide r Reason for Visit * Reason Onset Date Comments Durable Medical Equipment 01/21/2025 Encounter Details Date Type Department Care Team ([facility] Contact Info) Description 01/21/2025 Telephone [facility] MEDICINE [address] [place], [place] [phone] Sofia Montalvo MD [address] [place], [place] [phone] Durable Medical Equipment Social History Tobacco Use [...] Description 10/27/2025 1:30 PM EST Office Visit [facility] OPTOMETRY [address] [place] [address] Marshall, Celina, OD [address] [place] [address] 11/13/2025 10:15 AM EST Office Visit [facility] MEDICINE [address] [place] [address] Tyrell Madrigal MD [address] [place], [place] [phone] 12/21/2025 1:30 PM EDT Office Visit [facility] ADULT DENTAL [address] [place] [address] Socorro Johnson documented as of this encounter Visit Diagnoses Not on filedocumented in this encounter Additional Health Concerns Assessment Noted Time PHQ-9 Depression Total Score: 15 025 1:50 PM EDT documented as of this encounter Care Teams Tiedown Operator Relationship Specialty Start Date End Date Sofia Montalvo MD [address] [place] [address] PCP - General Family Medicine 09/23/21 documented as of this encounter
--- OUTSIDE RECORDS SUMMARY | 2025-09-24 18:27 | XMS_ITS | Clinical Summary ---
Author Organization [employer] Address [address] [facility] 7[address] [place] [address] Care Team Providers Care Foundry Finisher Name Role Phone Sofia Montalvo MD Primary [...] nebulizer solutionIndicat ions:COPD with acute exacerbation (CMS/HCC) (HCC) Take 3 mL (2.5 mg) by nebulization [...] FOR RASH 30 g 2 024 Active loperamide (Imodium) 2 MG capsuleIndicati ons:Chronic diarrhea Take 1 capsule (2 mg) by mouth if needed in the morning, at noon, in the evening, and at bedtime for diarrhea. 30 capsule 1 024 Active fluticasone (Flonase) 50 MCG/ACT nasal sprayIndication s:Chronic obstructive pulmonary disease, unspecified COPD type (CMS/HCC) (HCC) USE 1 SPRAY IN EACH NOSTRIL TWICE [...] BY MOUTH AT BEDTIME 30 tablet 11 09/11/20 25 12:21 PM EST 025 Active cetirizine (ZyrTEC) 10 MG tablet TAKE 1 TABLET BY MOUTH EVERYDAY AT NOON 90 tablet 3 025 Active cholecalciferol VITAMIN D (Vitamin D-3) 50 MCG (1999 UT) tablet TAKE 1 TABLET BY MOUTH EVERYDAY AT NOON 90 tablet 3 09/11/20 25 12:21 PM EST 025 Active hydrocortisone (Anusol-HC) 2.5 % rectal creamIndication s:Sebaceous cyst Insert into the rectum 2 times daily. 28 g 1 025 Active lidocaine (Xylocaine) 5 % ointmentIndicat ions:Acute pain of left knee Apply topically if needed for mild pain. 30 g 2 025 2025 Active dicyclomine (Bentyl) 10 MG capsule Take 10 mg by mouth 3 times daily. Active glucose blood (OneTouch Ultra Test) test strip 1 each by Other route Once per day. Active UNABLE TO FIND MIXTURE ADDITIVE Med Name: Hydromorphone 8 mg/mL, Baclofen 600 mcg/mL, Bupivacaine 40 mg/mL solution Continuous infusion via home implanted intrathecal pump Active metFORMIN (Glucophage) 500 MG tabletIndicatio ns:Type 2 diabetes mellitus with other specified complication, unspecified whether fpc insulin use (HCC) Take 1 tablet (500 mg) by mouth with breakfast. 90 tablet 1 025 Active glucose blood test stripIndication s:Type 2 diabetes mellitus with other specified complication, unspecified whether terminal makeup operator insulin use (HCC) Use once daily 100 each 12 025 2025 Active albuterol (Ventolin HFA) 108 (90 Base) MCG/ACT inhalerIndicati ons:Mild intermittent asthma without complication INHALE 2 PUFFS BY MOUTH FOUR TIMES DAILY 18 g 2 025 Active ferrous gluconate (Ferate) 240 (27 Fe) MG tabletIndicatio ns:Iron deficiency anemia, unspecified iron deficiency anemia type TAKE 1 TABLET BY MOUTH EVERY OTHER DAY IN THE MORNING 15 tablet 5 09/11/20 25 12:21 PM EST 025 Active bacitracin 500 UNIT/GM ointmentIndicat ions:Excoriatio [...] MODERATE PAIN 60 tablet 3 025 Active omeprazole (PriLOSEC) [address] capsuleIndicati ons:Acute gastritis without hemorrhage, unspecified gastritis type TAKE 1 CAPSULE BY MOUTH TWICE DAILY IN THE MORNING AND IN THE EVENING 60 capsule 3 09/11/20 25 12:21 PM EST 025 Active chlorhexidine (Peridex) 0.12 % solutionIndicat ions:Dental calculus,Dental plaque,Geograph ic tongue Swish 15 mL morning and night for 1 minute. Spit, do not swallow. Do not eat or drink for 30 minutes following use. 473 mL 025 Active clonazePAM (KlonoPIN) 0.5 MG tabletIndicatio ns:Mixed anxiety and depressive disorder TAKE 1 TABLET BY MOUTH ONCE DAILY 7 tablet 025 Active Fiber-Lax 625 MG tabletIndicatio ns:Chronic diarrhea TAKE 1 TABLET BY MOUTH TWICE DAILY IN THE MORNING AND AT BEDTIME 60 tablet 11 09/11/20 25 12:21 PM EST 025 Active Ascorbic Acid (vitamin C) 250 MG tablet TAKE 1 TABLET BY MOUTH EVERY OTHER DAY IN THE MORNING 45 tablet 1 025 Active losartan (Cozaar) 50 MG tabletIndicatio ns:Essential hypertension TAKE 1 TABLET BY MOUTH EVERYDAY AT NOON 30 tablet 1 09/11/20 25 12:21 PM EST 025 Active ketoconazole (NIZOral) 2 % shampooIndicati ons:Seborrheic dermatitis of scalp APPLY TO SCALP AND LEAVE ON FOR 5 MINUTES THEN RINSE OFF TWICE A WEEK 120 mL 1 09/11/20 25 12:21 PM EST 025 Active atenolol (Tenormin) 25 MG tabletIndicatio ns:Essential hypertension TAKE 1 TABLET BY MOUTH EVERY EVENING 30 tablet 1 09/11/20 25 12:21 PM EST 025 Active escitalopram (Lexapro) 10 MG tabletIndicatio ns:Mixed anxiety and depressive disorder TAKE 1 TABLET BY MOUTH EVERY MORNING 30 tablet 1 025 Active doxepin (SINEquan) 50 MG capsuleIndicati ons:Mixed anxiety and depressive disorder TAKE 1 CAPSULE BY MOUTH AT BEDTIME 30 capsule 1 09/11/20 25 12:21 PM EST 025 Active busPIRone (Buspar) 10 MG tabletIndicatio ns:Mixed anxiety and depressive disorder TAKE 1 AND 1/2 TABLETS BY MOUTH TWICE DAILY 90 tablet 1 09/11/20 25 12:21 PM EST 025 Active zolpidem (Ambien) 5 MG tabletIndicatio ns:Mixed anxiety and depressive disorder TAKE 1 TABLET BY MOUTH AT BEDTIME NEEDED FOR SLEEP 30 tablet 09/18/20 11:46 AM EST 025 Active aluminum-magnes ium hydroxide-simet hicone (Maalox Multi Symptom Max St) 400-400-40 MG/5ML suspensionIndic ations:Chronic gastritis, presence of bleeding unspecified, unspecified gastritis type Take 10 mL by mouth every 6 (six) hours if needed for indigestion or heartburn for up to 10 days. 355 mL 09/18/20 11:46 AM EST 025 2024 Active hydrocortisone (Anusol-HC) 2.5 % rectal creamIndication s:Hemorrhoids, unspecified hemorrhoid type Insert into the rectum 2 times daily. 28 g 1 025 Active ketoconazole (NIZOral) 2 % shampooIndicati ons:Seborrheic dermatitis of scalp APPLY TO SCALP AND LEAVE ON FOR 5 MINUTES THEN RINSE OFF TWICE A WEEK 120 mL 1 2024 Discontinued(R eorder (will not trigger notification to Pharmacy)) losartan (Cozaar) 50 MG tabletIndicatio ns:Essential hypertension Take 1 tablet (50 mg) by mouth Once per day. 30 tablet 1 025 2024 Discontinued atenolol (Tenormin) 25 MG tabletIndicatio ns:Essential hypertension Take 1 tablet (25 mg) by mouth Once per day. 30 tablet 1 025 2024 Discontinued busPIRone (Buspar) 10 MG tabletIndicatio ns:Mixed anxiety and depressive disorder TAKE 1 AND 1/2 TABLETS BY MOUTH TWICE DAILY 90 tablet 1 025 2024 Discontinued doxepin (SINEquan) 50 MG capsuleIndicati ons:Mixed anxiety and depressive disorder TAKE 1 CAPSULE BY MOUTH AT BEDTIME 30 capsule 1 025 2024 Discontinued escitalopram (Lexapro) 10 MG tabletIndicatio ns:Mixed anxiety and depressive disorder TAKE 1 TABLET BY MOUTH EVERY MORNING 30 tablet 1 025 2024 Discontinued zolpidem (Ambien) 5 MG tabletIndicatio ns:Mixed anxiety and depressive disorder TAKE 1 TABLET BY MOUTH AT BEDTIME NEEDED FOR SLEEP 30 tablet 025 2024 Discontinued sodium phosphate (Fleet) 7-19 GM/118ML enemaIndication s:Slow transit constipation Insert 1 enema into the rectum 1 (one) time for 1 dose. 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 Also patient with chronic allergic rhinitis and asthma Hypertriglyceridemia 01/17/2024 Stage 3a chronic kidney disease (CMS/HCC) 2023 Assessment & Plan (03/11/2025 5:08 PM EDT): [...] Date Resolved Date COPD with acute exacerbation ([facility]) 11/05/2023 04/29/2024 Dyspnea 10/17/2022 04/29/2024 Overview (10/17/2022): Stress test 09/21/22 via cardiology w/ no ischemia Encounters Date Type Department Care Team Description 09/22/[address] [address] Sofia Montalvo MD Nurse Triage 09/18/2025 Orders Only [address] [address] Sofia Montalvo MD 09/16/2025 11:15 AM EST Office Visit [address] [address] Sofia Montalvo MD Hemorrhoids, unspecified hemorrhoid type (Primary Dx); Chronic gastritis, presence of bleeding unspecified, unspecified gastritis type; Seborrheic dermatitis of scalp; Slow transit constipation 09/16/2025 Travel 09/15/2025 11:00 AM EST Office Visit [facility] ADULT DENTAL [address] [place] [phone] Andrey De Jesus DDS Fractured dental sikhism with loss of material (Primary Dx) 09/15/[address] [address] Sofia Montalvo MD chart prep 09/11/[address] [phone] Sofia Montalvo MD Mixed anxiety and depressive disorder 09/07/2025 Patient Outreach [address] [address] Sofia Montalvo MD Pre-visit Planning (SDOH screening completed on 12/15/2024) 08/30/2025 Refill [address] [place] [address] Sofia Montalvo MD Essential hypertension; Mixed anxiety and depressive disorder 08/27/2025 Refill [facility] [address] [place] [address] Sofia Montalvo MD Seborrheic dermatitis of scalp 08/26/2025 Refill [facility] [address] [place] [address] Sofia Montalvo MD Essential hypertension; Seborrheic dermatitis of scalp 08/20/2025 Refill [facility] [address] [place] [address] Sofia Montalvo MD Chronic diarrhea 08/18/2025 1:30 PM EST Immunization [facility] [address] [place] [address] Encounter for immunization 08/18/2025 Telephone [facility] [address] [place] [phone] Sofia Montalvo MD telephone call 08/18/2025 Travel 08/04/2025 Refill [facility] [address] [place] [address] Sofia Montalvo MD Mixed anxiety and depressive disorder 07/26/2025 Refill [facility] [address] [place] [address] Sfoia Montalvo MD Essential hypertension 07/16/2025 Refill [facility] [address] [place] [address] Sofia Montalvo MD Mixed anxiety and depressive disorder 07/13/2025 Telephone [facility] [address] [place] [phone] Sofia Montalvo MD dec recall 07/09/2025 Telephone [facility] [address] [place] [address] Sofia Montalvo MD Results 07/09/2025 Telephone [facility] [address] [place] [address] Sofia Montalvo MD Nurse Triage from Last 3 Months Immunizations Immunization Administration Dates Next Due Hep B, adult 09/05/2018,01/23/2012,12/13/2011 Influenza injectable quadriv alent IIV4 with preservative 06/26/2019,07/18/2018,06/28/2016,08/25 Influenza injectable quadriv alent preservative free 08/02/2023,07/28/2021,06/25/2020,08/09 Influenza, High Dose Seasona l, Preservative Free 08/18/2025 Influenza, IIV3, injectable 07/27/2022, 4,08/04/2011 Influenza, Split [...] Sign Reading Time Taken Comments Blood Pressure 130/72 09/16/2025 11:21 AM EST Pulse 68 09/16/2025 11:21 AM EST Temperature 34.5 C (94.1 F) 09/16/2025 11:21 AM EST Respiratory Rate 18 09/16/2025 11:21 AM EST Oxygen Saturation 93% 09/16/2025 11:21 AM EST Inhaled Oxygen Concentration - - Weight 76.4 kg (168 lb 6.4 oz) 09/16/2025 11:21 AM EST Height 157.5 cm (5' 2 ) 09/16/2025 11:21 AM EST Body Mass Index 30.8 09/16/2025 11:21 AM EST Plan of Treatment Upcoming Encounters Date Type Department Care Team (Late st Contact Info) Description 10/27/2025 1:30 PM EST Office Visit [facility] OPTOMET[facility] [address] [place] [address] Marshall, Celina, OD [address] [place], [place] [phone] 11/13/2025 10:15 AM EST Office Visit [facility] [address] [facility] [place] [phone] Tyrell Madrigal MD [address] [facility] [place] [address] 12/21/2025 1:30 PM EDT Office Visit [facility] [address] [facility] [place] [phone] [facility] Health Maintenance Due Date Last Done Comments CT Colonography 1959 Dental X-Ray: Bitewings 1959 Dental X-Ray: Full Mouth 1959 FIT DNA/Cologuard 1959 FIT 1959 FOBT 1960 Sigmoidoscopy 1959 Diabetes: Foot Exam 1969 Hepatitis C Screening 1977 COVID-19 Vaccine ( season) 2025 10/05/2021, 02/11/2021, 01/14/2021 Alcohol/Substance Use Screening 12/15/2025 12/15/2024 SDOH Screening 12/15/2025 12/15/2024 Depression Monitoring 12/16/2025 06/18/2025, 025 Diabetes: Hemoglobin A1C 12/16/2025 025, 12/15/2024, 06/30/2024, Additional history exists Dental Oral Exam 12/21/2025 06/22/2025, 09/2025, 09/11/2022 Dental Prophylaxis 12/21/2025 06/22/2025, 0 12/17/2024, 09/11/2022 Diabetes: Urine Protein Screening 06/22/2026 06/22/2025, 02/18/2024, 08/07/2022, Additional history exists Lipid Panel 06/22/2026 06/22/2025, 12/06, 08/07/2022, Additional history exists Eye Exam 09/09/2026 09/09/2024, 12/2023, 09/09/2024, Additional history exists Tobacco Screening 09/16/2026 09/16/2025 Mammogram 09/18/2026 09/18/2025, 03/2024, 06/27/2023, Additional history exists HPV/Cotest 07/30/2027 07/30/2024, 12/07, 01/02/2022, Additional history exists Pap Smear 07/30/2027 07/30/2024, 04/07, 01/02/2022 Colonoscopy 04/04/2033 04/04/2023 Colorectal Cancer Screening 04/04/2033 DTaP/Tdap/Td Vaccines (4 - Td or Tdap) 12/03/2033 12/03/2023, 10/19/2020, 07/04/2010 Hepatitis B Vaccines Completed 09/05/2018, 01/23/2012, 12/13/2011 Zoster Vaccines Completed 05/23/2021, 03/21/2021 Pneumococcal Vaccine: 50+ Years Completed 12/03/2023, 08/04/2011 RSV Patients and Patients Aged 60 years or older Completed 12/03/2023 Influenza Vaccine Completed 08/18/2025, , 07/27/2022, Additional history exists HIB Vaccines Aged Out No longer eligi [...] on patient's age to complete this topic Goals Goal Patient Goal Type Associated Problems Recent Progress Patient-Stated? Author Help patients manage their type 2 diabetes Care Plan Help patients manage their type 2 diabetes No Caitlin Roland, RN Weekly blood pressure task Care Plan Weekly blood pressure task Caitlin Avila, RN Help patients manage their type 2 diabetes Care Plan Help patients manage their type 2 diabetes No Caitlin Roland, RN Patient has chronic kidney disease Care Plan Patient has chronic kidney disease No Caitlin Roland RN Weekly blood pressure task Care Plan Weekly blood pressure task No Caitlin Roland RN Patient has chronic kidney disease Care [...] has chronic kidney disease No Shay Espinosa Procedures Procedure Name Priority Date/Time Associated Diagnosis Comments BI MAMMOGRAM SCREENING TOMOSYNTHESIS BILATERAL Routine 09/18/2025 1:09 PM EST CASE PRESENTATION, DETAILED AND EXTENSIVE TREATMENT PLANNING Routine 09/15/2025 11:00 AM EST INTRAORAL - PERIAPICAL FIRST RADIOGRAPHIC IMAGE Routine 09/15/2025 11:00 AM EST 26 DIFF(V)LL(V) RESIN-BASED COMPOSITE - 4 OR MORE SURFACES (ANTERIOR) Routine 09/15/2025 11:00 AM EST ALBUMIN, RANDOM URINE W/CREATININE Routine 06/22/2025 3:52 PM EDT Swelling Type 2 diabetes mellitus without complication, without long-term current use of insulin ([facility]) LIPID PANEL, STANDARD Routine 06/22/2025 3:52 PM EDT Type 2 diabetes mellitus without complication, without long-term current use of insulin ([facility]) PROPHYLAXIS - ADULT Routine 06/22/2025 3 :00 PM EDT Dental calculus Dental plaque PERIODIC ORAL EVALUATION - ESTABLISHED PATIENT Routine 06/22/2025 3:00 PM EDT POCT GLYCATED HEMOGLOBIN, TOTAL Routine 06/18/2025 2:28 PM EDT Type 2 diabetes mellitus without complication, without long-term current use of insulin ([facility]) THINPREP IMAGING PAP AND HPV MRNA E6/E7 WITH REFLEX TO HPV 16,18/45 Routine 07/30/2024 2:16 PM EDT HM COLONOSCOPY Routine 04/04/2023 from Last 3 Months or Most Recently Relevant to Health Maintenance Results * BI Mammogram Screening Tomosynthesis Bilateral (09/18/2025 1:09 PM EST) Anatomical Region Laterality Modality Breast Bilateral Mammography 09/18/2025 1:09 PM EST Narrative 09/22/2025 5:20 PM EST [place] [facility] [address] [place], [place] [address] Mammography Report Signed Patient: Norma Arcos MR#: [id number] : 1960 Acct:[id number] Age/Sex: 65 / F ADM Date: 09/18/25 Loc: HO.MAMMO Attending Dr: Sofia Art MD Ordering Physician: Sofia Montalvo MD Results: 1Negative Date of Service: 09/18/25 Follow Up: 1 Year From Orig inal Mammogram Procedure(s): MM tomosynthesis screening BI Accession Number(s): [id number] cc: Sofia Montalvo MD Reason For Exam: [...] by: Chelsi Beverly DO 09/22/2025 05:18 PM [facility] Dictated By: Chelsi Beverly DO Signed By: <Electronically signed by Chelsi Beverly DO in OV> 09/22/25 1718 DD/ 1309 TD/TT: 09/18/25 1329 [address] [place]: Procedure Note Donotuseinterpreter, Image - [facility] [address] [place] [address] Mammography Report Signed Patient: Norma ArcosMR#: [id number] : 1960cct:[id number] Age/Sex: 65 / FADM Date: 09/18/25 Loc: HO.MAMMO Attending Dr: Sofia Art MD Ordering Physician: Sofia Montalvo MDResults: 1Negative Date of Service: 09/18/25Follow Up: 1 Year From [facility] ina Mammogram Procedure(s): MM tomosynthesis screening BI Accession Number(s): [id number] cc: Sofia Montalvo MD Reason For Exam: [...] by: Chelsi Beverly DO 09/22/2025 05:18 PM [facility] Dictated By: Chelsi Beverly DO Signed By: <Electronically signed by Chelsi Beverly DO in OV> 09/22/25 1718 DD/ 1309 TD/TT: 09/18/25 1329 [address] [place]: us Sofia Art MD IMG BI PROCEDURES Simeon sweta Result - Final * Albumin, Random Urine W/Creatinine (06/22/2025 3:52 PM EDT) Creatinine, Urine 184.97 mg/dL [facility] Microalbumin Urine 20.0 mg/L [facility] Microalbum Creatinine Ratio Ur 10.8 <30 ug/mg cr [facility] Comment:Albumin/Creatinine R atio Reference Ranges: Normal: < 30 ug/mg creatinine Microalbuminuria: 30 - 300 ug/mg creatinineClinical Albuminuria: > 300 ug/mg creatinine Urine (Urine, Random) 06/22/2025 3:52 PM EDT 06/22/2025 5:35 PM EDT us Sofia Art MD LAB URINE ORDERABLES Final Result Performing Organization Address [facility] Co de Phone Number [facility] [address] [place] [phone] * (ABNORMAL) Lipid Panel, Standard (06/22/2025 3:52 PM EDT) Triglycerides 260(H) <150 mg/dL [facility] Comment:Desirable Triglyceri de: less than 150 mg/dLBorderline High Triglyceride 150-199 mg/dLHigh Triglyceride: 200-499 mg/dLVery High Triglyceride: greater than or equal to 5OO mg/dL Cholesterol 188 <200 mg/dL [facility] Comment:Desirable Cholestero l: less than 200 mg/dLBorderline High Cholesterol: 200-239 mg/dLHigh Cholesterol: greater than 239 mg/dL LDL Cholesterol Calculated 89 <100 mg/dL [facility] Comment:Desirable LDL: less than 100 mg/dLNear Optimal/Above Optimal LDL: 110- 129 mg/dLBorderline High LDL: 130-159 mg/dLHigh LDL: 160-189 mg/dLVery High LDL: greater than or equal to 190 mg/dL HDL Cholesterol 47 >40 mg/dL [facility] Comment:Desirable HDL: great er than 40 mg/dL Note: This HDL assay may give artificially low results in patients with liver disease. Blood Venous blood specimen / Unknown 06/22/2025 3:52 PM EDT 06/22/2025 5:25 PM EDT us Sofia Art MD LAB BLOOD ORDERABLES Final Result Performing Organization Address [facility] Co de Phone Number [facility] [address] [place] [phone] * (ABNORMAL) POCT Hgb A1c (06/18/2025 2:28 PM EDT) Hemoglobin A1C 6.2(A) 4.0 - 5.7 % QC Media Lot # [id number] Lot# Expiration Date [id number] Blood 06/18/2025 2:28 PM EDT Sofia Art MD POINT OF CARE TEST EN TER/EDIT ORDERABLES Final Result * ThinPrep Imaging Pap and HPV mRNA E6/E7 with Reflex to HPV 16,18/45 (07/30/2024 2:16 PM EDT) HPV 16 RNA [facility] HPV 18/45 RNA [facility] HPV nRNA E6/E7 Not Detected Not Detected [facility] Comment:Methodology: Transcr iption-Mediated AmplificationThis assay detects E6/E7 viral messenger RNA (mRNA) from 14high-risk HPV types (16,18,31,33,35,39,45,51,52,56,58,59,66,68).Cervical sources are required for HPV testing.If a vaginal source from a patient who has had atotal hysterectomy with removal of cervix wassubmitted, please contact the testing laboratoryfor alternative testing options.For additional information, please refer [email or web address]/WRZ436g8(This link if provided for information/educational purposes only.)THIS TEST WAS PERFORMED AT:[facility] [place] [phone] ALBERT MD SOURCE: SEE NOTE [facility] Comment:Cervix Report Status: [facility] Clinical Information: SEE NOTE [facility] Comment:Postmenopausal LMP: SEE NOTE [facility] Comment:PM Prev. PAP: SEE NOTE [facility] Comment:2022 Prev. BX: SEE NOTE [facility] Comment:NONE GIVEN Statement Of Adequacy: SEE NOTE [facility] Comment:Satisfactory for hailey luation.Endocervical/transformation zone componentpresent. General Categorization: [facility] Interpretation/Result: SEE NOTE [facility] Comment:Cytology Results: Ne gative for intraepitheliallesion or malignancy. Cytology Comment SEE NOTE [facility] Comment:This Pap test has be en evaluated with computerassisted technology. Firearms Specialist: SEE NOTE [facility] Comment:RXB, CT(ASCP)CT scre ening location: [address] [address] Review Firearms Specialist: SEE NOTE [facility] Comment:KF, CT(ASCP)CT scree omari location: [place] [address] Pathologist [facility] PAP Infection [facility] See Note SEE NOTE [facility] Comment:EXPLANATORY NOTE:The Pap is a screening test for cervical cancer. It isnot a diagnostic test and is subject to false negativeand false positive results. It is most reliable when asatisfactory sample, regularly obtained, is submittedwith relevant clinical findings and history, and whenthe Pap result is evaluated along with historic andcurrent clinical information. 07/30/2024 2:16 PM EDT 07/30/2024 3:50 PM EDT Narrative [facility] - 08/04/2024 3:28 PM EDT [...] Provider LAB PATHOLOGY ORD ERABLES Final Result [facility] [address] [place] [phone] * Hm Colonoscopy (04/04/2023) Colonoscopy Normal Normal us Sherri Britton MD HEALTH MAINTENANCE Final Result from Last 3 Months or Most Recently Relevant to Health Maintenance Additional Health Concerns Active Problems Noted Date [...] 09/22/2025 Patient has chronic kidney disease 09/22/[address] [place] [phone] [facility] FDC OPTIONS (O D-SNP) DENTAL - [facility] Care Teams Foundry Finisher Relationship Specialty Start Date End Date Sofia Montalvo MD [address] [place] [address] PCP - General Family Medicine 09/23/21
--- OUTSIDE RECORDS SUMMARY | 2025-09-24 18:27 | XMS_ITS | Encounter Summary ---
Author Organization [employer] Address [address] 7t [place] [address] Care Team Providers Care Senior Librarian Name Role Phone Sofia Montalvo MD Primary Care Provide r Reason for Referral * Consultation (Routine) - Pending Review Specialty Diagnoses / Procedures Referred By Contshahida t Referred To Contact Pharmacy Diagnoses Essential hypertension Alaina Clark MD [address] [place] [address] Phone: tel: fax: Referral ID Status Reason Start Date Expiration Date Visits Requested Visits Authorized [id number] Pending Review Continuity of Care 03/09/2025 03/09/2026 6 6 Encounter Details Date Type Department Care Team ([facility] st Contact Info) Description 03/06/2025 Orders Only [facility] MEDICINE [address] [place], [place] [phone] Alaina Clark MD [address] [place], [place] [phone] Essential hypertension (Primary Dx) Social History Tobacco [...] Description 10/27/2025 1:30 PM EST Office Visit [facility] OPTOMETRY [address] [place] [address] Celina Olivares, OD [address] [place] [address] 11/13/2025 10:15 AM EST Office Visit [facility] MEDICINE [address] [place] [address] Tyrell Madrigal MD 230 [place] [address] 12/21/2025 1:30 PM EDT Office Visit [facility] ADULT DENTAL [address] [place] [address] Socorro Johnson Scheduled Referrals Name Type Priority [...] as of this encounter Care Teams Senior Librarian Relationship Specialty Start Date End Date Sofia Montalvo MD [address] [place] [id number] PCP - General Family Medicine 09/23/21 documented as of this encounter
--- OUTSIDE RECORDS SUMMARY | 2025-09-24 18:27 | XMS_ITS | Encounter Summary ---
Author Organization [id number] Address [address] 7[address] [place] [address] Care Team Providers Care Reliability Technologist Name Role Phone Sofia Montalvo MD Primary Care Provide r Reason for Visit * Reason Comments Med Refill Encounter Details Date Type Department Care Team ([facility] Contact Info) Description 08/23/2023 Refill [facility] MEDICINE [address] [place], [place] [phone] Sofia Montalvo MD [address] [place], [place] [phone] Other chronic pain Social History Tobacco Use [...] [facility] OPTOMETRY [address] [place] [address] Marshall, Celina, OD [address] [place] [address] 11/13/2025 10:15 AM EST Office Visit [facility] MEDICINE [address] [place] [address] Tyrell Madrigal MD [address] [place] [address] 12/21/2025 1:30 PM EDT Office Visit [facility] ADULT DENTAL [address] [place] [address] Socorro Johnson documented as of this encounter Visit Diagnoses Diagnosis Other chronic pain documented in this encounter Care Teams Reliability Technologist Relationship Specialty Start Date End Date Sofia Montalvo MD [address] [place] [phone] PCP - General Family Medicine 09/23/21 documented as of this encounter
--- OUTSIDE RECORDS SUMMARY | 2025-09-24 18:27 | XMS_ITS | Encounter Summary ---
Author Organization [employer] Address [address] [place] [address] Care Team Providers Care Manager Mortgage Name Role Phone Sofia Montalvo MD Primary Care Provide r Reason for Visit * Reason Comments Med Refill Encounter Details Date Type Department Care Team ([facility] Contact Info) Description 09/29/2022 Refill [facility] MED & PEDS [address] [place], [place] [phone] Mandie Burton, ANP [address] [place], [place] [phone] Social History Tobacco Use Types Packs/Day Years [...] Upcoming Encounters Date Type Department Care Team ([facility] Contact Info) Description 10/27/2025 1:30 PM EST Office Visit [facility] OPTOMETRY [address] [place], [place] [phone] Celina Olivares, OD [address] [place] [address] 11/13/2025 10:15 AM EST Office Visit [facility] MEDICINE [address] [place] [phone] Tyrell Madrigal MD [address] [place], [place] [phone] 12/21/2025 1:30 PM EDT Office Visit [facility] ADULT DENTAL [address] [place] [address] [phone] Socorro Johnson documented as of this encounter Visit Diagnoses Not on filedocumented in this encounter Care Teams Manager Mortgage Relationship Specialty Start Date End Date Sofia Montalvo MD [address] [place] [address] [phone] PCP - General Family Medicine 09/23/21 documented as of this encounter
--- OUTSIDE RECORDS SUMMARY | 2025-09-24 18:27 | XMS_ITS | Encounter Summary ---
Author Organization [employer] Address [address] 7t [place] [address] Care Team Providers Care Shift Superintendent Name Role Phone Sofia Montalvo MD Primary Care Provide r Encounter Details Date Type Department Care Team ([facility] st Contact Info) Description 03/13/2024 Telephone [facility] MEDICINE [address] [place], [place] [phone] Sofia Montalvo MD [address] [place], [place] [phone] Social History Tobacco Use Types Packs/Day Years [...] t he electric, gas, oil or water [employer] threatened to shut off services in your [...] Description 10/27/2025 1:30 PM EST Office Visit [facility] OPTOMETRY [address] [place], [place] [phone] Celina Olivares, OD 230 [place] [address] 11/13/2025 10:15 AM EST Office Visit [facility] MEDICINE [address] [place] [address] Tyrell Madrigal MD 230 [place] [address] 12/21/2025 1:30 PM EDT Office Visit [facility] ADULT DENTAL [address] [place] [address] Socorro Johnson documented as of this encounter Visit Diagnoses Not on filedocumented in this encounter Care Teams Shift Superintendent Relationship Specialty Start Date End Date Sofia Montalvo MD [address] [place] [address] PCP - General Family Medicine 09/23/21 documented as of this encounter
--- OUTSIDE RECORDS SUMMARY | 2025-09-24 18:27 | XMS_ITS | Encounter Summary ---
Author Organization [employer] Address [address] [facility] 7t [place] [address] Care Team Providers Care Decontaminator Name Role Phone Soifa Montalvo MD Primary Care Provide r Encounter Details Date Type Department Care Team ([facility] Contact Info) Description 07/06/2023 Abstract [facility] MEDICINE [address] [place] [address] Dayana Erazo Social History Tobacco Use Types [...] Description 10/27/2025 1:30 PM EST Office Visit [facility] OPTOMETRY [address] [place] [address] Celina Olivares, OD 230 [place] [address] 11/13/2025 10:15 AM EST Office Visit [facility] MEDICINE [address] [place] [address] Tyrell Madrigal MD [address] [place] [address] 12/21/2025 1:30 PM EDT Office Visit [facility] ADULT DENTAL [address] [place] [address] JohnsonSocorro moeller documented as of this encounter Procedures Procedure [...] on filedocumented in this encounter Care Teams Decontaminator Relationship Specialty Start Date End Date Sofia Montalvo MD [address] [place], [place] [phone] PCP - General Family Medicine 09/23/21 documented as of this encounter
--- OUTSIDE RECORDS SUMMARY | 2025-09-24 18:27 | XMS_ITS | Encounter Summary ---
Author Organization [employer] Address [address] [place] [address] Care Team Providers Care Utility Mechanic Name Role Phone Sofia Montalvo MD Primary Care Provide r Reason for Visit * Reason Comments Med Refill Encounter Details Date Type Department Care Team ([facility] Contact Info) Description 08/24/2023 Refill [facility] MEDICINE [address] [place], [place] [phone] Sofia Montalvo MD 230 [place], [place] [phone] Other chronic pain Social History Tobacco Use [...] Description 10/27/2025 1:30 PM EST Office Visit [facility] OPTOMETRY [address] [place] [address] Marshall, Celina, OD 230 [place] [address] 11/13/2025 10:15 AM EST Office Visit [facility] MEDICINE [address] [place] [address] Tyrell Madrigal MD 230 [place] [address] 12/21/2025 1:30 PM EDT Office Visit [facility] ADULT DENTAL [address] [place] [address] Socorro Johnson documented as of this encounter Visit Diagnoses Diagnosis Other chronic pain documented in this encounter Care Teams Utility Mechanic Relationship Specialty Start Date End Date Sofia Montalvo MD [address] [place] [phone] PCP - General Family Medicine 09/23/21 documented as of this encounter
--- OUTSIDE RECORDS SUMMARY | 2025-09-24 18:27 | XMS_ITS | Encounter Summary ---
Author Organization [employer] Address [address] [place] [address] Care Team Providers Care Marketing Research Intern Name Role Phone Sofia Montalvo MD Primary Care Provide r Encounter Details Date Type Department Care Team (Latest Contact Info) Description 12/20/[address] [facility] CONVERSIONS Dental, Provider, DDS Social History [...] Description 10/27/2025 1:30 PM EST Office Visit [facility] OPTOMETRY [address] [place] [address] Celina Olivares, OD 230 [place] [address] 11/13/2025 10:15 AM EST Office Visit [facility] MEDICINE 230 [place] [address] Tyrell Madrigal MD [address] [place] [address] 12/21/2025 1:30 PM EDT Office Visit [facility] ADULT DENTAL 230 [place] [address] Socorro Johnson documented as of this encounter Visit Diagnoses Not on filedocumented in this encounter Care Teams Marketing Research Intern Relationship Specialty Start Date End Date Sofia Montalvo MD [address] [place] [address] PCP - General Family Medicine 09/23/21 documented as of this encounter
--- OUTSIDE RECORDS SUMMARY | 2025-09-24 18:27 | XMS_ITS | Encounter Summary ---
Author Organization [employer] Address [address] [place] [address] Care Team Providers Care Dog Groomer Name Role Phone Sofia Montalvo MD Primary Care Provide r Encounter Details Date Type Department Care Team (Late Contact Info) Description 10/20/2022 Orders Only [facility] MEDICINE [address] [place] [address] [phone] Jasmyne Hutchison MD [address] [place], [place] [phone] Blurry vision (Primary Dx) Social History Tobacco [...] Description 10/27/2025 1:30 PM EST Office Visit [facility] OPTOMETRY [address] [place], [place] [phone] Celina Olivares, OD 230 [place], [place] [phone] 11/13/2025 10:15 AM EST Office Visit [facility] MEDICINE [address] [place] [address] Tyrell Madrigal MD [address] [place] [address] 12/21/2025 1:30 PM EDT Office Visit [facility] ADULT DENTAL [address] [place] [address] Socorro Johnson documented as of this encounter Visit Diagnoses Diagnosis Blurry vision- Primary Other specified visual disturbances documented in this encounter Care Teams Dog Groomer Relationship Specialty Start Date End Date Sofia Montalvo MD [address] [place] [address] PCP - General Family Medicine 09/23/21 documented as of this encounter
--- OUTSIDE RECORDS SUMMARY | 2025-09-24 18:27 | XMS_ITS | Clinical Summary ---
Author Organization [facility] [place] Address [address] [place] [address] Phone Care Team Providers Care Snowboarder Name Role Phone Ramon Oropeza NP Primary Care Provider [phone] Allergies No known active allergies Medications albuterol [...] LAB CHEMISTRY METHOD 05/24/2025 9:42 AM EDT [facility] Potassium 3.9 3.5 - 5.1 mmol/L LAB CHEMISTRY METHOD 05/24/2025 9:42 AM EDT [facility] Chloride 107 98 - 107 mmol/L LAB CHEMISTRY METHOD 05/24/2025 9:42 AM EDT [facility] CO2 26 20 - 31 mmol/L LAB CHEMISTRY METHOD 05/24/2025 9:42 AM [facility] Anion Gap 10 10 - 17 LAB CHEMISTRY METHOD 05/24/2025 9:42 AM [facility] Glucose 100 74 - 106 mg/dL LAB CHEMISTRY METHOD 05/24/2025 9:42 AM [facility] BUN 22 9 - 23 mg/dL LAB CHEMISTRY METHOD 05/24/2025 9:42 AM [facility] Creatinine 1.62(H) 0.55 - 1.02 mg/dL LAB CHEMISTRY METHOD 05/24/2025 9:42 AM [facility] eGFR 35(L) >=60 mL/min/1 .73m2 LAB CHEMISTRY METHOD 05/24/2025 9:42 AM [facility] Comment:Calculation based on the Chronic Kidney Disease Epidemiology Collaboration (CKD-EPI) equation refit without adjustment for race. BUN/Creatinine Ratio 13.6 12.0 - 20.0 LAB CHEMISTRY METHOD 05/24/2025 9:42 AM [facility] Calcium 8.9 8.3 - 10.6 mg/dL LAB CHEMISTRY METHOD 05/24/2025 9:42 AM [facility] AST (SGOT) 18 0 - 34 unit/L LAB CHEMISTRY METHOD 05/24/2025 9:42 AM [facility] ALT (SGPT) 16 10 - 49 unit/L LAB CHEMISTRY METHOD 05/24/2025 9:42 AM [facility] Alkaline Phosphatase 59 46 - 116 unit/L LAB CHEMISTRY METHOD 05/24/2025 9:42 AM [facility] Total Protein 6.0 5.7 - 8.2 g/dL LAB CHEMISTRY METHOD 05/24/2025 9:42 AM [facility] Albumin 3.0(L) 3.4 - 5.0 g/dL LAB CHEMISTRY METHOD 05/24/2025 9:42 AM [facility] Total Bilirubin 0.3 0.3 - 1.2 mg/dL LAB CHEMISTRY METHOD 05/24/2025 9:42 AM EDT [facility] Blood Venous blood specimen / Unknown Venipuncture / Unknown 05/24/2025 7:53 AM EDT 05/24/2025 9:04 AM EDT us Brandin López MD LAB BLOOD ORDERABLES Final R esult [facility] [address] [place] [address], [place] [phone] from Last 3 Months or Most Recently Relevant to Health Maintenance Insurance MEDICAID - [place] [employer] MEDICARE Member Subscriber Plan / Payer (Ef fective 2025-Present) Name:Nena Adrian Relation to Subscriber:Self Name:Nena Adrian Payer ID:[id number] Group ID:[id number] Type:Not on file Address: [address] [place] [phone] [facility] [employer] Member Subscriber Plan / Payer (Ef fective 2025-Present) Name:Nena Adrian Relation to Subscriber:Self Name:Nena Adrian Payer ID:[id number] Group ID:Not on file Type:Not on file Address: [address] [place] [address] MEDICARE ADVANTAGE GENERIC MEDICARE Advance Directives * [...] currently active code status orders. Care Teams Snowboarder Relationship Specialty Start Date End Date Ramon Oropeza NP [address] [place] [address] PCP - General Family Medicine 09/18/18
== END 2025-09-24 14:51 | disposition home or self-care (01) ==
LOC: HO.PMC 14:13
PROVIDERS: PCP Internal Medicine; Visit Provider Anesthesiology
DX: M54.51 Vertebrogenic low back pain (principal); M54.16 Radiculopathy, lumbar region; M53.3 Sacrococcygeal disorders, not elsewhere classified; M46.1 Sacroiliitis, not elsewhere classified; M51.369 Other intervertebral disc degeneration, lumbar region without mention of lumbar back pain or lower extremity pain; M47.816 Spondylosis without myelopathy or radiculopathy, lumbar region; G89.4 Chronic pain syndrome; M15.9 Polyosteoarthritis, unspecified; R60.0 Localized edema; R10.9 Unspecified abdominal pain; Z45.1 Encounter for adjustment and management of infusion pump
CPT/HCPCS: 62370; 99213

== ENCOUNTER → 2025-09-24 14:12 | Outpatient (BNVA) | payer OTHER, SELFPAY | PROVIDERS: PCP Internal Medicine; Visit Provider Anesthesiology | DX: Z45.1 Encounter for adjustment and management of infusion pump (principal); M54.51 Vertebrogenic low back pain; M54.16 Radiculopathy, lumbar region; M53.3 Sacrococcygeal disorders, not elsewhere classified; M46.1 Sacroiliitis, not elsewhere classified; M51.369 Other intervertebral disc degeneration, lumbar region without mention of lumbar back pain or lower extremity pain; M47.816 Spondylosis without myelopathy or radiculopathy, lumbar region; G89.4 Chronic pain syndrome; M15.9 Polyosteoarthritis, unspecified; R60.0 Localized edema; R10.9 Unspecified abdominal pain; Z97.8 Presence of other specified devices | CPT/HCPCS: 62370; 99212 ==